=== PATIENT | male | born 1990 | race Caucasian/White ===

== ENCOUNTER 2023-01-27 08:27 | Emergency (ER) | payer OTHER, SELFPAY ==
[2023-01-27 08:33] VITALS: BP 146/98; PULSE 96; RESP 16; TEMP 36.6; O2SAT 96; BMI 40.0
--- NOTE | 2023-01-27 08:43 | CRLHL7_ITS ---
For Patients: As a result of the Cures Act, medical imaging exams and procedure reports are released immediately into your electronic medical record. You may view this report before your referring provider. If you have questions, please contact your health care provider. Indication: Right AC pain Technique: Right shoulder 3 views. Comparison: None. Findings: Spurring at the acromioclavicular joint noted with subchondral cystic change and dorsal hypertrophic change to the distal clavicle. Synovial hypertrophy also present. No fracture. No widening of the AC joint. Intact proximal humerus and visualized ribs. Normal glenohumeral joint. 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 Dictated by Cy Toro MD @ 01/27/2023 9:02:54 AM (Electronically Signed)
--- NOTE | 2023-01-27 08:46 | ED.UPPEXIN ---
HPI - Extremity Injury (Upper) General Date Seen: 01/27/23 Chief Complaint: Shoulder Injury/Pain Stated Complaint: Shoulder/neck pain right side Time Seen by Provider: 01/27/23 08:28 Source: patient Mode of arrival: ambulatory Limitations: no limitations History of Present Illness HPI narrative: Patient is a 32-year-old gentleman who presents here with right shoulder discomfort since yesterday, he was out sledding with his children but does not remember injuring himself, he woke up this morning with a right-sided shoulder discomfort and really inability to raises right arm. Because of pain. He thinks the right EC shoulder joint is swollen. Comparison to the left. He has no numbness tingling weakness goes down his neck, or into his arm, and denies any worsening of this when he moves his neck. No history of significant injury, loss of consciousness, he does have a history of Crohn's disease, is on Remicade in [place] T complaint: injury to: right Onset (ago): day(s) Other Extremity Injury: Right: shoulder Other injuries: none Hand dominance: Right Place: outdoors Severity: moderate Relieving factors: none Exacerbating factors: none Context: other Associated symptoms: denies other symptoms Treatments prior to arrival: other (none) Related Data Home Medications Medication Instructions Recorded Confirmed azathioprine 50 mg tablet mg PO BID 01/27/23 infliximab 100 mg intravenous IV 01/27/23 solution (Remicade) Previous Rx's Medication Instructions Recorded methylprednisolone 4 mg tablets in 4 mg PO DAILY #21 ea 01/27/23 a dose pack (Medrol (Sulaiman)) Allergies Allergy/AdvReac Type Severity Reaction Status Date / Time acetaminophen [From Vicodin] AdvReac Unknown Verified 01/27/23 08:39 hydrocodone [From Vicodin] AdvReac Unknown Verified 01/27/23 08:39 Review of Systems Status of ROS: Reports: 6 or more systems reviewed and unremarkable except as noted in History and below PFSH PFSH Social History Smoking Status: Former smoker Do you use any of these nicotine containing products: None Second hand tobacco smoke exposure: No How often do you have a drink containing alcohol: monthly or less AUDIT-C Alcohol total score: 1 Non-prescribed substance use: marijuana (any form) service: No Exam Narrative: Exam Narrative: Patient is seen in room 3, large gentleman in no apparent distress, I do not see any appreciable abnormality in reviewing left verses right shoulder area. But he is sore over the AC joint and along the clavicle. His neck has excellent range of motion in extension greater than 24 cm, flexion within 6, lateral flexion is a 30?, and rotation is greater than 70?. 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 Finger abduction wrist dorsiflexion biceps triceps biceps power is normal any sort of movement of his right shoulder however causes discomfort such as stanchion flexion. He has good internal external rotation I do not suspect that there is any evidence of a dislocation. Sensation is normal in his right upper extremity is pulses are normal with absence of edema or rash. Const: Vital Signs, click to edit/add: Vital Signs - 24 hr 01/27/23 08:33 Temperature 97.9 F Pulse Rate [Pulse Oximeter] 96 Respiratory Rate 16 Blood Pressure [Le ft Upper Arm] 146/98 H Pulse Oximetry 96 Oxygen Delivery Me thod Room Air Documenting provider has reviewed patient's vital signs: yes Course Course Hospital Course: I reviewed the x-ray, read reviewed the radiology report, he does have some arthritic changes of his AC joint but no widening to suggest that this is at least a grade 2 AC joint sprain. I suspect this is either the AC joint or the shoulder, given his range of motion of his neck I am not suspecting that this is a radicular type phenomena. All that cannot be 100% ruled out. I think we have time here and will try Medrol Dosepak, along with some Tylenol that he is able to use. He will avoid the use of NSAIDs for 2 reasons 1. With the Medrol 2. With the fact that this tends to set off is Crohn's disease I will have him follow-up later in the week with primary care, return here if any signs and symptoms of worsening which I discussed with him informed consent risks benefits given over medications. I explained to him that we typically do not sling these as we do not want and up with adhesive capsulitis. Or any decreased range of motion. He may need physical therapy going forward. Vital Signs Vital signs: Initial Vital Signs Temperature 97.9 F 01/27/23 08:33 Temperature Source Temporal Artery Scan 01/27/23 08:33 Pulse Rate 96 01/27/23 08:33 Pulse Rhythm 01/27/23 08:33 Respiratory Rate 16 01/27/23 08:33 Blood Pressure 146/98 H 01/27/23 08:33 Blood Pressure Mean 114 01/27/23 08:33 Blood Pressure Position Sitting 01/27/23 08:33 Pulse Oximetry 96 01/27/23 08:33 Oxygen Delivery Method 01/27/23 08:33 Vital Signs Temperature 97.9 F 01/27/23 08:33 Pulse Rate 96 01/27/23 08:33 Respiratory Rate 16 01/27/23 08:33 Blood Pressure 146/98 H 01/27/23 08:33 Pulse Oximetry 96 01/27/23 08:33 Oxygen Delivery Method 01/27/23 08:33 Temperature 97.9 F 01/27/23 08:33 Pulse Rate 96 01/27/23 08:33 Respiratory Rate 16 01/27/23 08:33 Blood Pressure 146/98 H 01/27/23 08:33 Pulse Oximetry 96 01/27/23 08:33 Oxygen Delivery Method 01/27/23 08:33 MDM - Extremity Injury (Upper) Medical Records Attestation: I reviewed the patient's medical records. Imaging Data Shoulder x-ray: My impression: No acute changes shoulder arthrosis of the AC joint. Radiologist's impression: Patient: KAMALJIT VELÁZQUEZ Facility:?[facility] Patient ID:?[id number] Site Patient ID:?[id number]. Site :?[id number] Study:?XRay Shoulder Right 3 VIEW-01/27/2023 8:58:26 AM Ordering Physician:Qing Meyer Final Report: Indication: Right AC pain Technique: Right shoulder 3 views. Comparison: None. Findings: Spurring at the acromioclavicular joint noted with subchondral cystic change and dorsal hypertrophic change to the distal clavicle. Synovial hypertrophy also present. No fracture. No widening of the AC joint. Intact proximal humerus and visualized ribs. Normal glenohumeral joint. 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 Dictated by Cy Toro MD @ 01/27/2023 9:02:54 AM (Electronic Signature) Discharge Plan Discharge Clinical Impression: Right shoulder pain Patient Disposition: Home, Self-Care Condition: Stable Instructions: Adhesive Capsulitis (ED), Shoulder Pain (ED), Arm Pain (ED), Shoulder Impingement Syndrome (ED) Additional Instructions: Home rest use of Tylenol 1 g p.o. t.i.d., would also suggest use of the Medrol Dosepak prescription given, follow-up later in week with primary care. As I discussed with you I do not think this is your neck, I think this is more likely rotator cuff for your AC joint, ice would be helpful over this area also and decrease your activity. Prescriptions: New methylprednisolone [Medrol (Sulaiman)] 4 mg tablets,dose pack 4 mg PO DAILY Qty: 21 0RF No Action azathioprine 50 mg tablet PO BID infliximab [Remicade] 100 mg recon soln IV Follow Up/Referrals: Sushant Schreiber MD [Primary Care Provider] - Stand Alone Forms: [employer] Info Instructions
[2023-01-27] MEDS: ACETAMINOPHEN 500 MG TABLET 1000 MG PO (09:11)
== END 2023-01-27 09:31 | disposition home or self-care (01) ==
PROVIDERS: Emergency Provider Family Medicine; PCP Family Medicine
DX: M25.511 Pain in right shoulder (principal)
CPT/HCPCS: 73030; 99283; 99284; A9270

== ENCOUNTER 2024-06-14 19:42 | Outpatient (CLI) | payer OTHER, SELFPAY ==
--- OUTSIDE RECORDS SUMMARY | 2024-06-14 19:45 | XMS_ITS | Clinical Summary ---
Author Organization [facility] Address [place], [place] [address] Care Team Providers Care Equipment Manager Name Role Phone Sushant Schreiber MD Primary Care Provider [phone] Allergies Active Allergy Reactions Criticality Noted Date Comments Hydrocodone-Acetaminophen Vomiting Low 04/17/2022 Medications Medication Sig Dispensed Refills Start Date End Date Status sennosides-docusate (SENOKOT S) (8.6-50 mg) tabletIndications:L umbar stenosis with neurogenic claudication Take 1 Tablet by mouth 2 times daily. 50 Tablet 04/23/2022 Active azaTHIOprine (IMURAN) 50 mg tablet Take 200 mg by mouth once daily. 05/03/2022 Active inFLIXimab (REMICADE) 100 mg injection Inject 5 mg/kg intravenous every 8 weeks. Active acetaminophen (TYLENOL EXTRA STRGTH) 500 mg tablet Take 1,000 mg by mouth every 6 hours if needed for Pain or Headache. Max acetaminophen dose: 4000mg in 24 hrs. Active oxyCODONE (ROXICODONE) 5 mg immediate release tabletIndications:L umbar stenosis with neurogenic claudication Take 1 Tablet (5 mg) by mouth every 4 hours if needed for Pain. 10 tablet. 05/17/2022 Active methocarbamoL (ROBAXIN) 750 mg tabletIndications:L umbar radiculopathy Take 1 Tablet (750 mg) by mouth 4 times daily. 40 Tablet 05/17/2022 Active Active Problems Problem Noted Date Diagnosed Date Crohn's disease of both small and large intestin e 01/28/2022 Cannabis dependence 09/05/2020 Lumbar radiculopathy Overview: pain, low back pain going into the left thigh Social History Tobacco Use Types Packs/Day Years Used Date Smoking Tobacco: Former Cigarettes 1 7 0 11/16/2007 - 11/16/2014 Smokeless Tobacco: Former Chew Quit: 04/17/2015 Tobacco Cessation:Counseling Given: Yes Alcohol Use Standard Drinks/Week Comments Not Currently 0 (1 standard drink = 0.6 oz pur e alcohol) Social Connections Answer Date Recorded Frequency of Communication with Friends and Fami ly Not on file 11/12/2021 Financial Resource Strain Answer Date R ecorded Difficulty of Paying Living Expenses Not on file 11/12/2021 Difficulty of Paying Living Expenses Not on file 11/12/2021 Sex and Gender Information Value Date Recorded Sex Assigned at Not on file Gender Identity Not on file Sexual Orientation Not on file Obstetrics History Last Filed Vital Signs Vital Sign Reading Time Taken Comments Blood Pressure 145/85 05/17/2022 12:24 PM CDT Pulse 80 05/17/2022 12:24 PM CDT Temperature 36.8 ??C (98.2 ??F) 05/17/2022 12:24 PM C DT Respiratory Rate 16 05/17/2022 12:24 PM CDT Oxygen Saturation 94% 05/17/2022 12:24 PM CDT Inhaled Oxygen Concentration - - Weight 115.2 kg (254 lb) 05/15/2022 2:03 PM CDT Height 181.6 cm (5' 11.5) 05/15/2022 2:03 PM CD T Body Mass Index 34.93 05/15/2022 2:03 PM CDT Plan of Treatment Health Maintenance Due Date Last Done Comments Tdap 1999 Depression screening for age 12+ 2000 BMI (ht and wt on same day) for age 18+ 2006 Tetanus booster 2008 COVID-19 vaccine series ( season) 2023 07/30/2021, 07/02/2021 Lipids for age 35-44 2023 Influenza for age 9-49 07/17/2024 HIV for age 15-65 Completed 06/29/2020 Hepatitis C screening for ag e 18-79 Completed 08/16/2021 Pneumococcal series for age 6-64 Aged Out No longer eligible b ased on patient's age to complete this topic Medical Devices Implanted Type Area Mail Machine Operator Device Identifier Shelf Expiration Date Model / Serial / Lot Dura Neuro 1xin Duragen Plusnon-Sut - [id number] Implanted:Qty: 1 on 04/21/2022 by Tadeo Calles MD at [facility] [employer] 01/13/2025 [id number] / / [id number] Procedures Procedure Name Priority Date/Time Associated Diagnosis Comments ANTI HCV Routine 08/16/2021 11:49 AM CDT High risk medication use ANTI HIV 1/2 Routine 06/29/2020 2:53 PM CDT Crohn's disease of both small and large intestine with fistula (HC) 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 Blood BLOOD SPECIMEN / Unknown Butterfly / Unknown 08/16/2021 11:49 AM CDT 08/16/2021 12:15 PM CDT Kaity Villatoro DO [facility] [address] [place] [address], * ANTI HIV 1/2 (06/29/2020 2:53 PM CDT) HIV-1/HIV-2 ANTIBODY Non-Reacti ve Non-Reacti ve 06/29/2020 8:44 PM CDT [facility] Comment:HIV-1 p24 and HIV-1/ HIV-2 Ab not detected. Blood BLOOD SPECIMEN / Unknown Venipuncture / Unknown 06/29/2020 2:53 PM CDT 06/29/2020 2:53 PM CDT Vinicio Teresa MD [facility] [address] [place] [address], from Last 3 Months or Most Recently Relevant to Health Maintenance Advance Directives * Full Code (Latest Code Status on File) Date Activated Date Inactivated Comments 05/15/2022 7:03 PM 05/17/2022 4:29 PM Question Answer Comments Code Status Discussion: Reviewed Preferences Care Teams Equipment Manager Relationship Specialty Start Date End Date Sushant Schreiber MD [address] [place] [address] PCP - General Family Practice 06/29/20
--- OUTSIDE RECORDS SUMMARY | 2024-06-14 19:45 | XMS_ITS | Encounter Summary ---
Author Organization [facility] Address [address] [place] [address] Care Team Providers Care Flooring Helper Name Role Phone Sushant Schreiber MD Primary Care Provider No Ref-Primary, Physician Unavailable Cisco Caceres MD Unavailable [phone] Yung Rodriguez MD Unavailable Tatianna Horne [facility] Unavailable Billie Tucker RN Unavailable Unavailable Paul Sanford MD Unavailable [phone] Paul Sanford MD Unavailable Jt Waters MD Unavailable Bhavik Segura PA-C Unavailable Paul Sanford MD Unavailable Favian Mcknight MD Unavailable [phone] Favian Mcknight MD Unavailable Reason for Visit * Reason Onset Date Comments Appointment 06/10/2024 Encounter Details Date Type Department Care Team (Late st Contact Info) Description 06/10/2024 Telephone [facility] [address] [place] [address] Paula Jane PA-C [address] [place] [address] Appointment Social History Tobacco Use Types Packs/Day Years Used Date Smoking Tobacco: Former Cigarettes Q uit: 05/01/2015 Smokeless Tobacco: Never Alcohol Use Standard Drinks/Week Comments Not Currently 0 (1 standard drink = 0.6 oz pur e alcohol) stop drinking 06/2020 PHQ-2 Answer Date Recorded PHQ-2 Score 0 12/08/2023 Adolescent Education Answer Date Record ed Getting School Help Needed Not on file 08/19 Sex and Gender Information Value Date Recorded Sex Assigned at Not on file Gender Identity Not on file Sexual Orientation Not on file documented as of this encounter Miscellaneous Notes * Telephone Encounter - Maria Teresa Garcia - 06/10/2024 10:31 AM CDT Left Voicemail (2nd Attempt) for the patient to call back and schedule the following: Appointment type: return Provider: Paula Jane Return date: next available Specialty phone number: [phone] Additional appointment(s) needed: Additonal Notes: * Can we please contact this patient and get him an appt with Paula as soon as she has available. Can we also get a follow up with Dr. Sanford on the books as well, next return available. documented in this encounter Plan of Treatment Upcoming Encounters Date Type Department Care Team (Late st Contact Info) Description 06/15/2024 9:00 AM CDT Virtual Visit [facility] [address] [address] Paul Sanford MD [address] [place] [phone] [address] [phone] documented as of this encounter Visit Diagnoses Not on filedocumented in this encounter Care Teams Flooring Helper Relationship Specialty Start Date End Date Sushant Schreiber MD [facility] & [address] [address] PCP - General Family Medicine 12/02/21 No Ref-Primary, Physician 12/02/21 Cisco Caceres MD [address] [place] [address] [phone] Fellow Gastroenterology 12/09/21 Yung Rodriguez MD [address], [facility] [address] [place], [place] [address] Cardiovascular Disease 12/25/21 Tatianna Horne, [facility] [address] [place] [address] [phone] Pharmacist Pharmacist Maintenance Groundskeeper 02/06/22 Billie Tucker, RN Specialty Rotary Screen Printing Machine Operator Gastroenterology 12/10/22 Paul Sanford MD [address] [place] [address] [phone] Gastroenterology 12/25/22 Paul Sanford MD [address] [place] [address] [phone] Referring Physician Gastroenterology 01/14/23 Jt Waters MD [address] [place], [place] [address] Dermatology 01/14/23 Bhavik Segura PA-C [address] [place] [address] [phone] Physician Arson And Bomb Investigator Gastroenterology 04/28/23 Paul Sanford MD [address] [place] [phone] Assigned Gastroenterology Provider 07/18/23 Favian Mcknight MD [address] [place] [address] MD Dermatology 12/09/23 Favian Mcknight MD [address] [place] [address] Assigned Surgical Provider 01/29/24 documented as of this encounter
--- OUTSIDE RECORDS SUMMARY | 2024-06-14 19:45 | XMS_ITS | Encounter Summary ---
Author Organization [facility] Address [address] [place] [address] Care Team Providers Care Packaging Machine Supplies Distributor Name Role Phone Sushant Schreiber MD Primary Care Provider [phone] No Ref-Primary, Physician Unavailable Cisco Caceres MD Unavailable [phone] Yung Rodriguez MD Unavailable Tatianna Horne [facility] Unavailable Billie Tucker RN Unavailable Unavailable Paul Sanford MD Unavailable Paul Sanford MD Unavailable Jt Waters MD Unavailable Bhavik Segura PA-C Unavailable Paul Sanford MD Unavailable [phone] Favian Mcknight MD Unavailable Favian Mcknight MD Unavailable [phone] Reason for Visit * Reason Onset Date Comments Appointment 06/08/2024 Encounter Details Date Type Department Care Team (Late st Contact Info) Description 06/08/2024 Telephone [facility] [address] [place] [address] Paula Jane PA-C [address] [place] [address] Appointment Social History Tobacco Use Types [...] Telephone Encounter - Maria Teresa Garcia - 06/08/2024 12:52 PM CDT Left Voicemail (1st Attempt) for the patient to call back and schedule the following: Appointment type: return Provider: Paula Jane and Dr. Sanford Return date: next available Specialty phone number: [phone] Additional appointment(s) needed: Additonal Notes: documented in this encounter Plan of Treatment Upcoming Encounters Date Type Department Care Team (Late st Contact Info) Description 06/15/2024 9:00 AM CDT Virtual Visit [facility] [address] [place] [address] Paul Sanford MD [address] [place] [address] [address] [address] documented as of this encounter Visit Diagnoses Not on filedocumented in this encounter Care Teams Packaging Machine Supplies Distributor Relationship Specialty Start Date End Date Sushant Schreiber MD [facility] [address] [place] [address] PCP - General Family Medicine 12/02/21 No Ref-Primary, Physician 12/02/21 Cisco Caceres MD [address] [place] [address] [phone] Fellow Gastroenterology 12/09/21 Yung Rodriguez MD [address] , [facility] [address] [place] [address] [phone] Cardiovascular Disease 12/25/21 Tatianna Horne, [facility] [address] [place] [address] [phone] Pharmacist Pharmacist Web Site Admin 02/06/22 Billie Tucker, RN Specialty Conservation Science Officer Gastroenterology 12/10/22 Paul Sanford MD [address] [place] [address] MD Gastroenterology 12/25/22 Paul Sanford MD [address] [place] [address] Referring Physician Gastroenterology 01/14/23 Jt Waters MD [address] [place] [address] [phone] Dermatology 01/14/23 Bhavik Segura PA-C [address] [place] [address] [phone] Physician Traffic Lieutenant Gastroenterology 04/28/23 Paul Sanford MD [address] [place] [address] [phone] Assigned Gastroenterology Provider 07/18/23 Favian Mcknight MD [address] [place] [address] Dermatology 12/09/23 Favian Mcknight MD [address] [place] [address] Assigned Surgical Provider 01/29/24 documented as of this encounter
--- OUTSIDE RECORDS SUMMARY | 2024-06-14 19:45 | XMS_ITS | Referral Summary ---
Author Organization [facility] Address [address] [place] [address] Care Team Providers Care Residential Sales Associate Name Role Phone Sushant Schreiber MD Primary Care Provider No Ref-Primary, Physician Unavailable [phone] Cisco Wooten MD Unavailable Yung Rodriguez MD Unavailable Tatianna Horne [facility] Unavailable [phone] Billie Tucker RN Unavailable Unavailable Megha Sanford MD Unavailable Megha Sanford MD Unavailable Jt Waters MD Unavailable Bhavik Segura PA-C Unavailable Megha Sanford MD Unavailable Favian Mcknight MD Unavailable Favian Mcknight MD Unavailable Encounters Date Type Department Care Team Description 06/10/2024 Telephone [facility] [address] [phone] Paula Jane PA-C Appointment 06/08/2024 Telephone [facility] [address] [phone] Paula Jane PA-C Appointment 06/07/2024 [facility] Medical Advice [facility] [address] [place] [phone] Billie Tucker, RN Crohn's disease of both small and large intestine with other complication (H) (Primary Dx) 06/07/2024 Telephone [facility] [address] [place] [phone] Megha Sanford MD Call Back 05/09/2024 Documentation Only [facility] [address] [place] [phone] Lyudmila Baltazar RN Home Infusion 03/31/2024 Telephone [facility] [address] [place] [phone] Favian Mcknight MD Clinic Care Coordination - Initial 03/18/2024 Telephone [facility] [address] [place] [phone] Cisco Wooten MD Appointment 03/16/2024 [facility] Medical Advice [facility] [address] [place] [phone] Tatianna Horne [facility] 03/16/2024 Telephone [facility] [address] [phone] Cisco Wooten MD Appointment from Last 3 Months Allergies Active Allergy Reactions Criticality Noted Date Comments Hydrocodone-Acetaminophen Nausea and Vomiting Low 0 04/17/2022 Oxycodone Nausea and Vomiting 12/04/2021 Medications Medication Sig Dispensed Refills Start Date End Date Status inFLIXimab (REMICADE IV) Inject 900 mg into the vein every 2 months Active acetaminophen (TYLENOL) 325 MG tablet Take 325-650 mg by mouth 3 times daily as needed for mild pain, fever or headaches Active polyethylene glycol (GOLYTELY) 236 g suspensionIndicatio ns:Crohn's disease of both small and large intestine with other complication (H) The night before the exam at 6 pm drink an 8-ounce glass every 15 minutes until the jug is half empty. If you arrive before 11 AM: Drink the other half of the Golytely jug at 11 PM night before procedure. If you arrive after 11 AM: Drink the other half of the Golytely jug at 6 AM day of procedure. For additional instructions refer to your colonoscopy prep instructions. 4000 mL 03/06/2023 Active azaTHIOprine (IMURAN) 50 MG tabletIndications:C rohn's disease of both small and large intestine with other complication (H) Take 4 tablets (200 mg) by mouth daily 360 tablet 1 01/11/2024 Active cetirizine (ZYRTEC) 10 MG tabletIndications:U rticaria Take one pill (10mg daily) for hives. If not controlling your hives, start taking one pill twice daily (morning and evening). 60 tablet 5 01/19/2024 Active Active Problems Problem Noted Date Diagnosed Date Back injury 03/23/2023 Chronic left-sided low back pain without sciatic a 02/27/2022 Crohn's disease of both small and large intestin e 01/28/2022 Pericardial effusion 12/03/2021 CARDIOVASCULAR SCREENING; LDL GOAL LESS THAN 160 09/15/2010 Social History Tobacco Use Types Packs/Day Years [...] on file Sexual Orientation Not on file Last Filed Vital Signs Vital Sign Reading Time Taken Comments Blood Pressure 156/96 01/20/2024 8:00 AM ACCOUNTS RECEIVABLE ADMINISTRATOR Pulse 77 01/20/2024 8:00 AM ACCOUNTS RECEIVABLE ADMINISTRATOR Temperature 36.7 ??C (98.1 ??F) 11/21/2023 12:[address] Respiratory Rate 18 11/21/2023 12:59 AM ACCOUNTS RECEIVABLE ADMINISTRATOR Oxygen Saturation 96% 01/20/2024 8:00 AM ACCOUNTS RECEIVABLE ADMINISTRATOR Inhaled Oxygen Concentration - - Weight 127.5 kg (281 lb) 01/20/2024 8:00 AM ACCOUNTS RECEIVABLE ADMINISTRATOR Height 181.6 cm (5' 11.5) 01/20/2024 8:00 AM CS T pt reported Body Mass Index 38.65 01/20/2024 8:00 AM ACCOUNTS RECEIVABLE ADMINISTRATOR Plan of Treatment Upcoming Encounters Date Type Department Care Team (Late st Contact Info) Description 06/15/2024 9:00 AM CDT Virtual Visit [facility] [address] [place] [phone] Megha Sanford MD [address] [place] [address] Tatianna Horne, [facility] [address] [place] [address] Procedures Procedure Name Priority Date/Time Associated Diagnosis Comments CBC WITH PLATELETS & DIFFERENTIAL Routine 05/09/2024 1:35 PM CDT Crohn's disease of both small and large intestine without complications (H) CBC WITH PLATELETS AND DIFFERENTIAL Routine 05/09/2024 1:35 PM CDT Crohn's disease of both small and large intestine without complications (H) CRP INFLAMMATION Routine 05/09/2024 1:35 PM CDT Crohn's disease of both small and large intestine without complications (H) HEPATIC FUNCTION PANEL Routine 05/09/2024 1:35 PM CDT Crohn's disease of both small and large intestine without complications (H) HIV ANTIGEN ANTIBODY COMBO Add-On 01/20/2024 10:09 AM ACCOUNTS RECEIVABLE ADMINISTRATOR Crohn's disease of small intestine with abscess (H) High risk medication use HEPATITIS C ANTIBODY Add-On 01/20/2024 10:09 AM ACCOUNTS RECEIVABLE ADMINISTRATOR Crohn's disease of small intestine with abscess (H) High risk medication use BASIC METABOLIC PANEL Routine 12/08/2023 4:39 PM ACCOUNTS RECEIVABLE ADMINISTRATOR Arthralgia, unspecified joint High risk medication use CRP elevated COLONOSCOPY Routine 09/29/2023 9:29 AM ACCOUNTS RECEIVABLE ADMINISTRATOR from Last 3 Months or Most Recently Relevant to Health Maintenance Results * (ABNORMAL) CBC with platelets and differential (05/09/2024 1:35 PM CDT) WBC Count 8.5 4.0 - 11.0 10e3/uL 05/09/2024 2:43 PM CDT [facility] RBC Count 4.29(L) 4.40 - 5.90 10e6/uL 05/09/2024 2:43 PM CDT [facility] Hemoglobin 14.6 13.3 - 17.7 g/dL 05/09/2024 2:43 PM CDT [facility] Hematocrit 41.1 40.0 - 53.0 % 05/09/2024 2:43 PM CDT [facility] MCV 96 78 - 100 fL 05/09/2024 2:43 PM CDT [facility] MCH 34.0(H) 26.5 - 33.0 pg 05/09/2024 2:43 PM CDT [facility] MCHC 35.5 31.5 - 36.5 g/dL 05/09/2024 2:43 PM CDT [facility] RDW 13.4 10.0 - 15.0 % 05/09/2024 2:43 PM CDT [facility] Platelet Count 255 150 - 450 10e3/uL 05/09/2024 2:43 PM CDT [facility] % Neutrophils 55 % 05/09/2024 2:43 PM CDT [facility] % Lymphocytes 34 % 05/09/2024 2:43 PM CDT [facility] % Monocytes 9 % 05/09/2024 2:43 PM CDT [facility] % Eosinophils 1 % 05/09/2024 2:43 PM CDT [facility] % Basophils 1 % 05/09/2024 2:43 PM CDT [facility] % Immature Granulocytes 0 % 05/09/2024 2:43 PM CDT [facility] NRBCs per 100 WBC 0 <1 /100 024 2:43 PM CDT [facility] Absolute Neutrophils 4.6 1.6 - 8.3 10e3/uL 05/09/2024 2:43 PM CDT [facility] Absolute Lymphocytes 2.9 0.8 - 5.3 10e3/uL 05/09/2024 2:43 PM CDT [facility] Absolute Monocytes 0.8 0.0 - 1.3 10e3/uL 05/09/2024 2:43 PM CDT [facility] Absolute Eosinophils 0.1 0.0 - 0.7 10e3/uL 05/09/2024 2:43 PM CDT [facility] Absolute Basophils 0.0 0.0 - 0.2 10e3/uL 05/09/2024 2:43 PM CDT [facility] Absolute Immature Granulocytes 0.0 <=0.4 10e3/uL 05/09/2024 2:43 PM CDT [facility] Absolute NRBCs 0.0 10e3/uL 05/09/2024 2:43 PM CDT [facility] Blood BLOOD SPECIMEN / Unknown Client Draw / Unknown 05/09/2024 1:35 PM CDT 05/09/2024 2:39 PM CDT Megha Sanford MD LAB - BLOOD O RDERABLES LABORATORY [facility] [address] [facility] Lab (1st floor, no room number) [place] [phone] * Hepatic function panel (05/09/2024 1:35 PM CDT) Pathologist [facility] Protein Total 8.0 6.4 - 8.3 g/dL 05/09/2024 3:01 PM CDT [facility] Albumin 4.4 3.5 - 5.2 g/dL 05/09/2024 3:01 PM CDT [facility] Bilirubin Total 0.6 <=1.2 mg/dL 05/09/2024 3:01 PM CDT [facility] Alkaline Phosphatase 137 40 - 150 U/L 05/09/2024 3:01 PM CDT [facility] AST 43 0 - 45 U/L 05/09/2024 3:01 PM CDT [facility] Comment:Reference intervals for this test were updated on 04/27/2023 to more accurately reflect our healthy population. There may be differences in the flagging of prior results with similar values performed with this method. Interpretation of those prior results can be made in the context of the updated reference intervals. ALT 45 0 - 70 U/L 05/09/2024 3:01 PM CDT [facility] Comment:Reference intervals for this test were updated on 04/27/2023 to more accurately reflect our healthy population. There may be differences in the flagging of prior results with similar values performed with this method. Interpretation of those prior results can be made in the context of the updated reference intervals. Bilirubin Direct <0.20 0.00 - 0.30 mg/dL 05/09/2024 3:01 PM CDT [facility] Blood BLOOD SPECIMEN / Unknown Client Draw / Unknown 05/09/2024 1:35 PM CDT 05/09/2024 2:39 PM CDT Megha Sanford MD LAB - BLOOD O RDERALYUDMILA Performing Organization Address City/[facility]/ZIP Co de Phone Number [facility] [address] (1st floor, no room number) [place] [phone] [place] [address] * (ABNORMAL) CRP inflammation (05/09/2024 1:35 PM CDT) CRP Inflammation 5.34(H) <5.00 mg/L 05/09/2024 3:01 PM CDT LABORATORY Blood BLOOD SPECIMEN / Unknown Client Draw / Unknown 05/09/2024 1:35 PM CDT 05/09/2024 2:39 PM CDT Megha Sanford MD LAB - BLOOD O RDERALYUDMILA [facility] [address] Lab (1st floor, no room number) [place] [address] * HIV Antigen Antibody Combo [place] (01/20/2024 10:09 AM ACCOUNTS RECEIVABLE ADMINISTRATOR) HIV Antigen Antibody Combo Nonreactive Nonreactive 01/20/2024 10:07 PM ACCOUNTS RECEIVABLE ADMINISTRATOR [facility] Comment:Negative HIV-1/-2 an tigen and antibody screening test results usually indicate the absence of HIV-1 and HIV-2 infection. However, such negative results do not rule-out acute HIV infection. If acute HIV-1 or HIV-2 infection is suspected, detection of HIV-1 or HIV-2 RNA is recommended. Blood STRUCTURE OF RIGHT UPPER LIMB / Unknown Venipuncture / Unknown 01/20/2024 10:09 AM ACCOUNTS RECEIVABLE ADMINISTRATOR 01/20/2024 10:09 AM ACCOUNTS RECEIVABLE ADMINISTRATOR Miguel Stoll MD LAB - BLOOD ORDER SHANDA Performing Organization Address City/[facility] Co de Phone Number LABORATORY [facility] [address] [facility], [address] [place] [address], [facility] [phone] * Hepatitis C antibody (01/20/2024 10:09 AM ACCOUNTS RECEIVABLE ADMINISTRATOR) Hepatitis C Antibody Nonreactive Nonreactive 01/20/2024 10:28 PM ACCOUNTS RECEIVABLE ADMINISTRATOR LABORATORY Comment:A nonreactive screen ing test result does not exclude the possibility of exposure to or infection with HCV. Nonreactive screening test results in individuals with prior exposure to HCV may be due to antibody levels below the limit of detection of this assay or lack of reactivity to the HCV antigens used in this assay. Patients with recent HCV infections (<3 months from time of exposure) may have false- negative HCV antibody results due to the time needed for seroconversion (average of 8 to 9 weeks). Blood STRUCTURE OF RIGHT UPPER LIMB / Unknown Venipuncture / Unknown 01/20/2024 10:09 AM ACCOUNTS RECEIVABLE ADMINISTRATOR 01/20/2024 10:09 AM ACCOUNTS RECEIVABLE ADMINISTRATOR Miguel Stoll MD LAB - BLOOD ORDER SHANDA Performing Organization Address [facility]/ZIP Co de Phone Number LABORATORY [facility] [address] [facility], [address] [place] [address], [facility] [phone] * (ABNORMAL) Basic metabolic panel (12/08/2023 4:39 PM ACCOUNTS RECEIVABLE ADMINISTRATOR) Pathologist [facility] Sodium 139 135 - 145 mmol/L 12/08/2023 5:06 PM ACCOUNTS RECEIVABLE ADMINISTRATOR [facility] Comment:Reference intervals for this test were updated on 08/11/2023 to more accurately reflect our healthy population. There may be differences in the flagging of prior results with similar values performed with this method. Interpretation of those prior results can be made in the context of the updated reference intervals. Potassium 3.7 3.4 - 5.3 mmol/L 12/08/2023 5:06 PM [facility] - CORE LAB Chloride 102 98 - 107 mmol/L 12/08/2023 5:06 PM [facility] - [facility] Carbon Dioxide (CO2) 28 22 - 29 mmol/L 12/08/2023 5:06 PM [facility] Anion Gap 9 7 - 15 mmol/L 12/08/2023 5:06 PM [facility] Urea Nitrogen 13.7 6.0 - 20.0 mg/dL 12/08/2023 5:06 PM [facility] Creatinine 0.87 0.67 - 1.17 mg/dL 12/08/2023 5:06 PM [facility] - [facility] GFR Estimate >90 >60 mL/min/1. 73m2 12/08/2023 5:06 PM [facility] Calcium 9.3 8.6 - 10.0 mg/dL 12/08/2023 5:06 PM [facility] Glucose 108(H) 70 - 99 mg/dL 12/08/2023 5:06 PM [facility] Blood STRUCTURE OF LEFT UPPER LIMB / Unknown Venipuncture / Unknown 12/08/2023 4:39 PM ACCOUNTS RECEIVABLE ADMINISTRATOR 12/08/2023 4:39 PM ACCOUNTS RECEIVABLE ADMINISTRATOR Megha Sanford MD LAB - BLOOD O RDERABLES [facility] [address] [facility] 1st [place] [address] * COLONOSCOPY (09/29/2023 9:29 AM ACCOUNTS RECEIVABLE ADMINISTRATOR) [facility] [address] [place] [address] [phone] ? Endoscopy Department Patient Name: Demetri Castillo ?Procedure Date: 09/29/2023 9:29 AM ? Date of : 1990 ? Admit Type: Outpatient Age: 33 ? Room: [facility] 02 Gender: Male ?Note Status: Finalized Attending MD: MEGHA SANFORD MD, ?? Total Sedation Time: Procedure: ? Colonoscopy Indications: ? High risk colon cancer surveillance: Crohn's colitis ? of 8 (or more) years duration with one-third (or more) ? of the colon involved, currently doing well in ? symptomatic remission on therapies. MRE/CTE show no ? active inflammation. 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 ileo-cecal resection with IC anastomosis, sigmoid ? colectomy, pelvic wash out (sacral osteomyelitis). Providers: ? MEGHA SANFORD MD, Ashley Lopez, JANELL, SKY ? JASBIR LAMB Referring MD: ?MEGHA SANFORD MD, CISCO WOOTEN MD Requesting Provider: ?? CISCO WOOTEN MD Medicines: ? Monitored Anesthesia Care Complications: ? No immediate complications. Procedure: ? Pre-Anesthesia Assessment: ? - See EPIC H and P note ? After obtaining informed consent, the colonoscope was ? passed under direct vision. Throughout the procedure, ? the patient's blood pressure, pulse, and oxygen ? saturations were monitored continuously. The ? Colonoscope was introduced through the anus and ? advanced to the ileocolonic anastomosis. The ? colonoscopy was performed without difficulty. The ? patient tolerated the procedure well. The quality of ? the bowel preparation was adequate to identify polyps ? greater than 5 mm in size. ? Findings: ? Skin tags were found on perianal exam. ? The Simple Endoscopic Score for Crohn's Disease was determined based on ? the endoscopic appearance of the mucosa in the following segments: ? - Ileum: Findings include no ulcers present, no ulcerated surfaces, no ? affected surfaces and no narrowings. Segment score: 0. ? - Right Colon: Findings include no ulcers present, no ulcerated ? surfaces, no affected surfaces, no narrowings and no ulcers present, no ? ulcerated surfaces, no affected surfaces and no narrowings. Segment ? score: 0. ? - Transverse Colon: Findings include no ulcers present, no ulcerated ? surfaces, no affected surfaces, no narrowings and no ulcers present, no ? ulcerated surfaces, no affected surfaces and no narrowings. Segment ? score: 0. ? - Left Colon: Findings include no ulcers present, no ulcerated surfaces, ? no affected surfaces, no narrowings and no ulcers present, no ulcerated ? surfaces, no affected surfaces and no narrowings. Segment score: 0. ? - Rectum: Findings include no ulcers present, no ulcerated surfaces, no ? affected surfaces, no narrowings and no ulcers present, no ulcerated ? surfaces, no affected surfaces and no narrowings. Segment score: 0. ? - Total SES-CD aggregate score: 0. Four biopsies were taken every 10 cm ? with a cold forceps from the entire colon for Crohn's disease ? surveillance and dysplasia surveillance. These biopsy specimens from the ? ascending colon, transverse colon, descending/sigmoi d colon and rectum ? were sent to Pathology. ? The inflammation was graded as Rutgeerts Score i2a (lesions confined to ? the ileocolonic anastomosis). The remainder of the neoi-terminal ileum ? was normal. Only distal 3-5 cm could be evaluated due to looping. ? There was evidence of a prior end-to-side ileo-colonic anastomosis in ? the ascending colon. This was patent and was characterized by erosion. ? The anastomosis was traversed. ? There was evidence of a prior end-to-end colo-colonic anastomosis in the ? distal sigmoid colon (20 cm from anal verge). This was patent and was ? characterized by healthy appearing mucosa. The anastomosis was ? traversed. There was a dimple at the site of anastomosis with possible ? adherent suture material. It is possible this could be an old fistula ? but I favor this being part of the anastomosis. ? The exam was otherwise without abnormality on direct and retroflexion ? views. ? Impression: ?- Perianal skin tags found on perianal exam. ? - Simple Endoscopic Score for Crohn's Disease: 0, ? mucosal inflammatory changes secondary to Crohn's ? disease, in remission. Biopsied. ? - Rutgeerts Score i2a ( lesions confined to the ? ileocolonic anastomosis). ? - Patent end-to-side ileo-colonic anastomosis, ? characterized by erosion. (thus Rutgeert's 12a) ? - Patent end-to-end colo-colonic anastomosis, ? characterized by healthy appearing mucosa. ? - The examination was otherwise normal on direct and ? retroflexion views. ? Overall this exam looks excellent. He has mucosal ? healing. Only some mild erosion/ulceratio n at the IC ? anastomosis. Remainder of the ileum and colon look ? normal. Recommendation: ?- Discharge patient to home (with escort). ? - Resume previous diet. ? - Continue present medications. ? - Await pathology results. ? - Repeat colonoscopy in 2 years for surveillance. ? - Return to GI clinic. ? Electronically Signed by: Dr. Megha Sanford MEGHA SANFORD MD 09/29/2023 12:15:10 PM I was physically present for the entire viewing portion of the exam. Signature of teaching physician MEGHA SANFORD MD Number of Addenda: 0 Note Initiated On: 09/29/2023 9:29 AM Scope In: 11:39:45 AM Scope Out: 12:00:16 PM RADIOLOGY RESULTS 09/29/2023 9:29 AM ACCOUNTS RECEIVABLE ADMINISTRATOR Megha Sanford MD PROCEDURES RADIOLOGY RESULTS from Last 3 Months or Most Recently Relevant to Health Maintenance Advance Directives For more information, please contact: [phone] * Full Code (Latest Code Status on File) Date Activated Date Inactivated Comments 02/28/2022 4:20 AM 02/28/2022 6:03 PM All basic an d advanced life-sustaining interventions are performed as appropriate Question Answer Comments Code status determined by: Discussion with patie nt/ legal decision maker * Full Code Date Activated Date Inactivated Comments 12/03/2021 3:04 AM 12/04/2021 2:27 PM All basic an d advanced life-sustaining interventions are performed as appropriate Question Answer Comments Code status determined by: Discussion with patie nt/ legal decision maker Care Teams Residential Sales Associate Relationship Specialty Start Date End Date Sushant Schreiber MD [address] [address] PCP - General Family Medicine 12/02/21 No Ref-Primary, Physician 12/02/21 Cisco Wooten MD [address] [place] [address] [address] [place], [place] [phone] Fellow Gastroenterology 12/09/21 Yung Rodriguez MD [address] , [facility] [address] [place], [place] [phone] Cardiovascular Disease 12/25/21 Tatianna Horne, [facility] [address] [place] [address] [phone] Pharmacist Pharmacist [employer] Founder 02/06/22 Billie Tucker, JANELL Specialty Marble Setter Helper Gastroenterology 12/10/22 Megha Sanford MD [address] [place] [address] Gastroenterology 12/25/22 Megha Sanford MD [address] [place] [address] Referring Physician Gastroenterology 01/14/23 Jt aWters MD [address] [place] [address] Dermatology 01/14/23 Bhavik Segura PA-C [address] [place] [address] Physician Telephone Operator Chief Gastroenterology 04/28/23 Megha Sanford MD [address] [place] [address] Assigned Gastroenterology Provider 07/18/23 Favian Mcknight MD [address] [place] [address] Dermatology 12/09/23 Favian Mcknight MD [address] [place] [address] Assigned Surgical Provider 01/29/24
--- OUTSIDE RECORDS SUMMARY | 2024-06-14 19:45 | XMS_ITS | Encounter Summary ---
Author Organization [place] Address [address] [place] [address] Care Team Providers Care Copy Reader Name Role Phone Sushant Schreiber MD Primary Care Provider No Ref-Primary, Physician Unavailable [phone] Cisco Caceres MD Unavailable Yung Rodriguez MD Unavailable Tatianna Horne [facility] Unavailable [phone] Billie Tucker RN Unavailable Unavailable Paul Sanford MD Unavailable [phone] Paul Sanford MD Unavailable Jt Waters MD Unavailable Bhavik Segura PA-C Unavailable Paul Sanford MD Unavailable Favian Mcknight MD Unavailable Favian Mcknight MD Unavailable Reason for Visit * Reason Onset Date Comments Call Back 06/07/2024 Encounter Details Date Type Department Care Team (Late st Contact Info) Description 06/07/2024 Telephone [facility] [place] [id number] [facility] [address]th [place] [address] Paul Sanford MD [address] [place] [address] Call Back Social History Tobacco Use Types Packs/Day Years [...] encounter Miscellaneous Notes * Telephone Encounter - Billie Tucker RN - 06/07/2024 3:41 PM CDT Images from the original note were not included. Most recent clinic visit: 12/08/23 [email or web address] message sent to clinic coordinators requesting assistance with scheduling patient for follow up appointment with [facility]. Patient updated via [employer]. * Telephone Encounter - Demetri Zayas - 06/07/2024 8:39 AM CDT [facility] Phone Message May a detailed message be left on voicemail: yes Reason for Call: Other: Demetri is calling in asking for a call back to discuss how he should proceedwith scheduling for a follow-up visit, as he cannot wait to be seen until Dr. Sanford's next available appt in December 2024. Please call back as soon as possible to discuss. Action Taken: Message routed to: [facility] GI Travel Screening: Not Applicable Date of Service: documented in this encounter Plan of Treatment Upcoming Encounters Date Type Department Care Team ([facility] st Contact Info) Description 06/15/2024 9:00 AM CDT Virtual Visit [facility] [address] [place] [address] Paul Sanford MD [address] [place] [address] [phone] [facility] [address] [place] [address] documented as of this encounter Visit Diagnoses Not on filedocumented in this encounter Care Teams Copy Reader Relationship Specialty Start Date End Date Sushant Schreiber MD [facility] [address] [place] [address] PCP - General Family Medicine 12/02/21 No Ref-Primary, Physician 12/02/21 Cisco Caceres MD [address] [place] [address] [id number] Fellow Gastroenterology 12/09/21 Yung Rodriguez MD [address] , [facility] [address] [place] [address] Cardiovascular Disease 12/25/21 Tatianna Horne, [facility] [address] [place] [address] Pharmacist Pharmacist Water Conservationist 02/06/22 Billie Tucker, JANELL Specialty Senior Ecologist Gastroenterology 12/10/22 Paul Sanford MD [address] [place] [address] Gastroenterology 12/25/22 Paul Sanford MD [address] [place] [address] Referring Physician Gastroenterology 01/14/23 Jt Waters MD [address] [place] [address] Dermatology 01/14/23 Bhavik Segura PA-C [address] [place] [address] Physician Fill Plant Operator Gastroenterology 04/28/23 Paul Sanford MD [address] [place] [address] Assigned Gastroenterology Provider 07/18/23 Favian Mcknight MD [address] [place] [address] Dermatology 12/09/23 Favian Mcknight MD [address] [place] [address] Assigned Surgical Provider 01/29/24 documented as of this encounter
--- OUTSIDE RECORDS SUMMARY | 2024-06-14 19:45 | XMS_ITS | Clinical Summary ---
Author Organization [place] Address [address] [place] [address] Care Team Providers Care Multi Township Assessor Name Role Phone Sushant Schreiber MD Primary Care Provider [phone] No Ref-Primary, Physician Unavailable [phone] Cisco Wooten MD Unavailable [phone] Yung Rodriguez MD Unavailable Tatianna Horne [facility] Unavailable Billie Tucker RN Unavailable Unavailable Megha Sanford MD Unavailable Megha Sanford MD Unavailable [phone] Jt Waters MD Unavailable Bhavik Segura PA-C Unavailable [phone] Megha Sanford MD Unavailable Favian Mcknight MD Unavailable [phone] Favian Mcknight MD Unavailable [phone] Allergies Active Allergy Reactions Criticality Noted Date [...] SCREENING; LDL GOAL LESS THAN 160 09/15/2010 Encounters Date Type Department Care Team Description 06/10/2024 Telephone [facility] [address] [address] Paula Jane PA-C Appointment 06/08/2024 Telephone [facility] [address] [address] Paula Jane PA-C Appointment 06/07/2024 MyC Medical Advice [facility] [address] [address] Billie Tucker, JANELL Crohn's disease of both small and large intestine with other complication (H) (Primary Dx) 06/07/2024 Telephone [facility] [address] [phone] Megha Sanford MD Call Back 05/09/2024 Documentation Only [facility] [address] [place] [phone] Lyudmila Baltazar RN Home Infusion 03/31/2024 Telephone [facility] Dermatology Clinic [address] 3rd [place] [address] Favian Mcknight MD Clinic Care Coordination - Initial 03/18/2024 Telephone [facility] [address] 4th [place] [address] Cisco Wooten MD Appointment 03/16/2024 MyC Medical Advice [facility] [address] [place] [address] Tatianna Horne [facility] 03/16/2024 Telephone [facility] Virtual Urgent Care [address] [address] Cisco Wooten MD Appointment from Last 3 Months Family History Medical History Relation Comments Family History Negative Other Relation Status Comments Other Social History Tobacco Use Types Packs/Day Years [...] Comments Blood Pressure 156/96 01/20/2024 8:00 AM LOCATE TECHNICIAN Pulse 77 01/20/2024 8:00 AM LOCATE TECHNICIAN Temperature 36.7 ??C (98.1 ??F) 11/21/2023 12:[address] Respiratory Rate 18 11/21/2023 12:59 AM LOCATE TECHNICIAN Oxygen Saturation 96% 01/20/2024 8:00 AM LOCATE TECHNICIAN Inhaled Oxygen Concentration - - Weight 127.5 kg (281 lb) 01/20/2024 8:00 AM LOCATE TECHNICIAN Height 181.6 cm (5' 11.5) 01/20/2024 8:00 AM CS T pt reported Body Mass Index 38.65 01/20/2024 8:00 AM LOCATE TECHNICIAN Plan of Treatment Upcoming Encounters Date Type Department Care Team (Late st Contact Info) Description 06/15/2024 9:00 AM CDT Virtual Visit [facility] [address] [place] [address] Megha Sanford MD [address] [place] [address] Tatianna Horne, [address] [address] Health Maintenance Due Date Last Done Comments ADVANCE CARE PLANNING 1990 ANNUAL REVIEW OF HM ORDERS 1988 CT COLONOGRAPHY 1988 FIT 1988 FLEX SIG 1988 URINE DRUG SCREEN 1988 sDNA (Cologuard) 1988 IPV IMMUNIZATION (2 of 3 - 4-dose series) 11/29/1992 11/01/1992 Pneumococcal Vaccine: Pediatrics (0 to 5 Years) and At-Risk Patients (6 to 64 Years) (1 of 2 - PCV) 1994 HEPATITIS B IMMUNIZATION (2 of 3 - 3-dose series) 04/25/2002 03/28/2002 YEARLY PREVENTIVE VISIT 06/07/2005 06/07/2004 COVID-19 Vaccine (3 - Moderna risk series) 08/27/2021 07/30/2021, 07/02/2021 INFLUENZA VACCINE (#1) 2024 , 07/27/2012, 09/17/2010 COLONOSCOPY 09/29/2025 09/29/2023, 09/29/2023 COLORECTAL CANCER SCREENING 09/29/2025 GLUCOSE 12/08/2026 12/08/2023, 0 04/2024, 12/25/2022, Additional history exists DTAP/TDAP/TD IMMUNIZATION (5 - Td or Tdap) 06/18/2030 06/18/2020, 01/14/2010, 01/14/2009, Additional history exists PHQ-2 (once per calendar year) Completed 12/08/2023, 12/09/2022, 04/01/2022, Additional history exists HEPATITIS C SCREENING Completed 01/20/2024, 021 HIV SCREENING Completed 01/20/2024 HPV IMMUNIZATION Aged Out No longer e ligible based on patient's age to complete this topic MENINGITIS IMMUNIZATION Aged Out No l onger eligible based on patient's age to complete this topic RSV MONOCLONAL ANTIBODY Aged Out No l onger eligible based on patient's age to complete this topic Procedures Procedure Name Priority Date/Time Associated Diagnosis [...] ANTIGEN ANTIBODY COMBO Add-On 01/20/2024 10:09 AM LOCATE TECHNICIAN Crohn's disease of small intestine with abscess (H) High risk medication use HEPATITIS C ANTIBODY Add-On 01/20/2024 10:09 AM LOCATE TECHNICIAN Crohn's disease of small intestine with abscess (H) High risk medication use BASIC METABOLIC PANEL Routine 12/08/2023 4:39 PM LOCATE TECHNICIAN Arthralgia, unspecified joint High risk medication use CRP elevated COLONOSCOPY Routine 09/29/2023 9:29 AM LOCATE TECHNICIAN from Last 3 Months or Most Recently [...] Sanford MD LAB - BLOOD O RDERABLES RH LABORATORY [facility] Acute Care Lab [address] [facility] Lab (1st floor, no room number) [place] [address] * Hepatic function panel (05/09/2024 1:35 PM CDT) Protein Total 8.0 6.4 - 8.3 g/dL [...] - 0.30 mg/dL 05/09/2024 3:01 PM CDT LABORATORY Blood BLOOD SPECIMEN / Unknown Client Draw / Unknown 05/09/2024 1:35 PM CDT 05/09/2024 2:39 PM CDT Megha Sanford MD LAB - BLOOD O RDERABLES [facility] [address] [facility] Lab (1st floor, no room number) [address] * (ABNORMAL) CRP inflammation (05/09/2024 1:35 PM CDT) CRP Inflammation 5.34(H) <5.00 mg/L 05/09/2024 3:01 PM CDT LABORATORY Blood BLOOD SPECIMEN / Unknown Client Draw / Unknown 05/09/2024 1:35 PM CDT 05/09/2024 2:39 PM CDT Megha Sanford MD LAB - BLOOD O RDERALYUDMILA [facility] Acute [facility] Lab [address] [facility] (1st floor, no room number) [address] * HIV Antigen Antibody Combo [place] (01/20/2024 10:09 AM LOCATE TECHNICIAN) HIV Antigen Antibody Combo Nonreactive Nonreactive 01/20/2024 10:07 PM LOCATE TECHNICIAN [facility] Comment:Negative HIV-1/-2 an tigen and antibody screening test results usually indicate the absence of HIV-1 and HIV-2 infection. However, such negative results do not rule-out acute HIV infection. If acute HIV-1 or HIV-2 infection is suspected, detection of HIV-1 or HIV-2 RNA is recommended. Blood STRUCTURE OF RIGHT UPPER LIMB / Unknown Venipuncture / Unknown 01/20/2024 10:09 AM LOCATE TECHNICIAN 01/20/2024 10:09 AM LOCATE TECHNICIAN Miguel Stoll MD LAB - BLOOD ORDER SHANDA Performing Organization Address City/[facility]/ZIP Co de Phone Number LABORATORY [facility] [place] Core Lab [address] [facility], [address] [address], [facility] [phone] * Hepatitis C antibody (01/20/2024 10:09 AM LOCATE TECHNICIAN) Pathologist [facility] Hepatitis C Antibody Nonreactive Nonreactive 01/20/2024 10:28 PM LOCATE TECHNICIAN LABORATORY Comment:A nonreactive screen ing test result [...] Unknown Venipuncture / Unknown 01/20/2024 10:09 AM LOCATE TECHNICIAN 01/20/2024 10:09 AM LOCATE TECHNICIAN Miguel Stoll MD LAB - BLOOD ORDER SHANDA Performing Organization Address City/[facility] de Phone Number LABORATORY [facility] [place] [facility] [address] [facility], [address] [address], [facility] [phone] * (ABNORMAL) Basic metabolic panel (12/08/2023 4:39 PM LOCATE TECHNICIAN) [facility] Sodium 139 135 - 145 mmol/L 12/08/2023 5:06 PM LOCATE TECHNICIAN [facility] Comment:Reference intervals for this test were updated on 08/11/2023 to more accurately reflect our healthy population. There may be differences in the flagging of prior results with similar values performed with this method. Interpretation of those prior results can be made in the context of the updated reference intervals. Potassium 3.7 3.4 - 5.3 mmol/L 12/08/2023 5:06 PM [facility] Chloride 102 98 - 107 mmol/L 12/08/2023 5:06 PM [facility] Carbon Dioxide (CO2) 28 22 - 29 mmol/L 12/08/2023 5:06 PM [facility] Anion Gap 9 7 - 15 mmol/L 12/08/2023 5:06 PM [facility] Urea Nitrogen 13.7 6.0 - 20.0 mg/dL 12/08/2023 5:06 PM [facility] Creatinine 0.87 0.67 - 1.17 mg/dL 12/08/2023 5:06 PM [facility] GFR Estimate >90 >60 mL/min/1. 73m2 12/08/2023 5:06 PM [facility] Calcium 9.3 8.6 - 10.0 mg/dL 12/08/2023 5:06 PM [facility] Glucose 108(H) 70 - 99 mg/dL 12/08/2023 5:06 PM [facility] Blood STRUCTURE OF LEFT UPPER LIMB / Unknown Venipuncture / Unknown 12/08/2023 4:39 PM LOCATE TECHNICIAN 12/08/2023 4:39 PM LOCATE TECHNICIAN Megha Sanford MD LAB - BLOOD O RDERABLES [facility] [address] [place] [address] 1st [place] [address] * COLONOSCOPY (09/29/2023 9:29 AM LOCATE TECHNICIAN) [facility] COLONOSCOPY [facility] [address] [place] [address] [phone] ? Endoscopy Department Patient Name: Demetri Castillo ?Procedure Date: 09/29/2023 9:29 AM ? Date of : 1990 ? Admit Type: Outpatient Age: 33 ? Room: [facility] 02 Gender: Male ?Note Status: [...] osteomyelitis). Providers: ? MEGHA SANFORD MD, Ashley Lopez RN, SKY ? JASBIR LAMB Referring MD: ?MEGHA [...] ileo-colonic anastomosis, ? 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 - Patent end-to-end colo-colonic anastomosis, [...] 12:00:16 PM RADIOLOGY RESULTS 09/29/2023 9:29 AM LOCATE TECHNICIAN Megha Sanford MD PROCEDURES RADIOLOGY RESULTS from Last 3 Months or Most Recently Relevant to Health Maintenance Advance Directives For more information, please contact: [phone] * Full Code (Latest Code Status on [...] patie nt/ legal decision maker Care Teams Multi Township Assessor Relationship Specialty Start Date End Date Sushant Schreiber MD [facility] [address] [place] [address] PCP - General Family Medicine 12/02/21 No Ref-Primary, Physician 12/02/21 Cisco Wooten MD [address] [place] [address] [address] [place], [place] 797205 Fellow Gastroenterology 12/09/21 Yung Rodriguez MD [address], [facility] [address] [place] [address] Cardiovascular Disease 12/25/21 Tatianna Horne, [facility] [address] [place] [address] Pharmacist Pharmacist Plastics Nurse 02/06/22 Billie Tucker, RN Specialty Railroad Car Loader Gastroenterology 12/10/22 Megha Sanford MD [address] [place] [address] Gastroenterology 12/25/22 Megha Sanford MD [address] [place] [address] Referring Physician Gastroenterology 01/14/23 Jt Waters MD [address] [place] [address] Dermatology 01/14/23 Bhavik Segura PA-C [address] [place] [address] Physician Public Safety Director Gastroenterology 04/28/23 Megha Sanford MD [address] [place] [address] Assigned Gastroenterology Provider 07/18/23 Favian Mcknight MD [address] [place] [address] Dermatology 12/09/23 Favian Mcknight MD [address] [place] [address] Assigned Surgical Provider 01/29/24
--- OUTSIDE RECORDS SUMMARY | 2024-06-14 19:45 | XMS_ITS | Encounter Summary ---
Author Organization [place] Address [address] [place] [address]609 Care Team Providers Care Fitting Room Maintenance Mechanic Name Role Phone Sushant Schreiber MD Primary Care Provider No Ref-Primary, Physician Unavailable [phone] Cisco Caceres MD Unavailable [phone] Yung Rodriguez MD Unavailable Tatianna Horne [facility] Unavailable Billie Tucker RN Unavailable Unavailable Paul Sanford MD Unavailable Paul Sanford MD Unavailable Jt Waters MD Unavailable Bhavik Segura PA-C Unavailable [phone] Paul Sanford MD Unavailable Favian Mcknight MD Unavailable [phone] Favian Mcknight MD Unavailable [phone] Reason for Referral * Med Therapy Management (Routine: Next available opening) - Pending Review Specialty Diagnoses / Procedures Referred By Rhina shah Referred To Contact Pharmacist Diagnoses Crohn's disease of both small and large intestine with other complication (H) Paul Sanford MD [address] [place] [address] Referral ID Status Reason Start Date Expiration Date V isits Requested Visits Authorized [id number] Pending Review 06/13/2024 06/13/2025 1 1 Question Answer Type of MTM: Specialty Specialty: GI Med Course of Action: Other Reason for Referral: medicaiton maintenance Additional Information: already scheduled Comments [facility] Medication Therapy Management department will contact you to schedule an appointment. You may also schedule the appointment by calling or toll-free at . This service is designed to help you get the most from your medications. A specially trained Pharmacist will work closely with you and your providers to solve any questions, concerns, issues or problems related to your medications. Please bring all of your prescription and non-prescription medications (such as vitamins, vphz-nac-tppqwcq medications, and herbals) or a detailed medication list to your appointment. If you have a glucose meter or other home monitoring information, please also bring this to your appointment (i.e. blood glucose log, blood pressure log, pain log, etc.). Encounter Details Date Type Department Care Team (Latest Contact Info) Description 06/07/2024 MyC Medical Advice [facility] Gastroenterology Clinic [address] [place] [address] Billie Tucker, RN Crohn's disease of both small and large intestine with other complication (H) (Primary Dx) Social History Tobacco Use Types Packs/Day Years [...] on file documented as of this encounter Plan of Treatment Upcoming Encounters Date Type Department Care Team (Late st Contact Info) Description 06/15/2024 9:00 AM CDT Virtual Visit [facility] [address] [place] [phone] Paul Sanford MD [address] [place] [address] [address] [phone] Scheduled Referrals Name Type Priority Associated Diagnoses Orde r Schedule Med Therapy Management Referral Referral Routine: Next available opening Crohn's disease of both small and large intestine with other complication (H) Ordered: 06/13/2024 documented as of this encounter Visit Diagnoses Diagnosis Crohn's disease of both small and large intestine with other complication (H)- Primary documented in this encounter Care Teams Fitting Room Maintenance Mechanic Relationship Specialty Start Date End Date Sushant Schreiber MD [facility] - [address] [address] PCP - General Family Medicine 12/02/21 No Ref-Primary, Physician 12/02/21 Cisco Caceres MD [address] [place] [address] [id number] Fellow Gastroenterology 12/09/21 Yung Rodriguez MD [address] [facility] [address] [place], [place] 359[address] Cardiovascular Disease 12/25/21 [facility] [address] [place] [address] [phone] Pharmacist Pharmacist Plumbing Mechanic 02/06/22 Billie Tucker, RN Specialty Residential Solar Sales Consultant Gastroenterology 12/10/22 Paul Sanford MD [address] [place] [address] Gastroenterology 12/25/22 Paul Sanford MD 500 [place] [address] Referring Physician Gastroenterology 01/14/23 Jt Waters MD 500 [place] [address] Dermatology 01/14/23 Bhavik Segura PA-C [address] [place] [address] Physician Lead Handler Gastroenterology 04/28/23 Paul Sanford MD [address] [place] [address] Assigned Gastroenterology Provider 07/18/23 Favian Mcknight MD [address] [place] [address] Dermatology 12/09/23 Favian Mkcnight MD [address] [place] [address] Assigned Surgical Provider 01/29/24 documented as of this encounter
--- OUTSIDE RECORDS SUMMARY | 2024-06-14 19:46 | XMS_ITS | Encounter Summary ---
Author Organization [place] Address [address] [place] [address] Care Team Providers Care Shuttle Fitting Supervisor Name Role Phone Sushant Schreiber MD Primary Care Provider No Ref-Primary, Physician Unavailable [phone] Cisco Caceres MD Unavailable [phone] Yung Rodriguez MD Unavailable Tatianna Horne [facility] Unavailable Billie Tucker RN Unavailable Unavailable Paul Sanford MD Unavailable Paul Sanford MD Unavailable [phone] Jt Waters MD Unavailable Bhavik Segura PA-C Unavailable [phone] Paul Sanford MD Unavailable Favian Mcknight MD Unavailable Favian Mcknight MD Unavailable [phone] Encounter Details Date Type Department Care Team (Late st Contact Info) Description 03/16/2024 [facility] [address] [place] [address] Tatianna Horne, [facility] [place] [address] Social History Tobacco Use Types Packs/Day Years [...] Description 06/15/2024 9:00 AM CDT Virtual Visit [facility] [address] [place] [phone] Paul Sanford MD [address] [place] [address] 910205 [address] 047[address] documented as of this encounter Visit Diagnoses Not on filedocumented in this encounter Care Teams Shuttle Fitting Supervisor Relationship Specialty Start Date End Date Sushant Schreiber MD [facility] [address] [place] [address] PCP - General Family Medicine 12/02/21 No Ref-Primary, Physician 12/02/21 Cisco Caceres MD [address] [place] [address] 284 [place], [place] [phone] Fellow Gastroenterology 12/09/21 Yung Rodriguez MD [address], [place] [address] [place] 137525 Cardiovascular Disease 12/25/21 Tatianna Horne, [facility] [address] [place] [address] Pharmacist Pharmacist Shuttle Veneering Supervisor 02/06/22 Billie Tucker, RN Specialty Multimedia Manager Gastroenterology 12/10/22 Paul Sanford MD [address] [place] [address] Gastroenterology 12/25/22 Paul Sanford MD [address] [place] [address] Referring Physician Gastroenterology 01/14/23 Jt Waters MD [address] [place] [address] Dermatology 01/14/23 Bhavik Segura PA-C [address] [place] [address] Physician Facilities Manager Gastroenterology 04/28/23 Paul Sanford MD [address] [place] [address] Assigned Gastroenterology Provider 07/18/23 Favian Mcknight MD [address] [place] [address] Dermatology 12/09/23 Favian Mcknight MD [address] [place] [address] Assigned Surgical Provider 01/29/24 documented as of this encounter
--- OUTSIDE RECORDS SUMMARY | 2024-06-14 19:46 | XMS_ITS | Encounter Summary ---
Author Organization [place] Address [address] [place] [address] Care Team Providers Care Death Claim Clerk Name Role Phone Sushant Schreiber MD Primary Care Provider No Ref-Primary, Physician Unavailable [phone] Cisco Caceres MD Unavailable [phone] Yung Rodriguez MD Unavailable Tatianna Horne [facility] Unavailable Billie Tucker RN Unavailable Unavailable Paul Sanford MD Unavailable Paul Sanford MD Unavailable Jt Waters MD Unavailable Bhavik Segura PA-C Unavailable [phone] Paul Sanford MD Unavailable Favian Mcknight MD Unavailable [phone] Favian Mcknight MD Unavailable Reason for Visit * Reason Onset Date Comments Patient/info Update 03/11/2024 Encounter Details Date Type Department Care Team (Late st Contact Info) Description 03/11/2024 Telephone [facility] [place] [address] [place] [address] Miguel Stoll MD 420 [facility] 108 [place] [address] Patient/info Update Social History Tobacco Use Types Packs/Day Years [...] encounter Miscellaneous Notes * Telephone Encounter - Sky Aldridge - 03/11/2024 12:06 PM CDT LVM with pre-registration's # to update/ verify registration information for upcoming appointments on 03/23/2024. OZIEL Harrell documented in this encounter Plan of Treatment Upcoming Encounters Date Type Department Care Team (Late st Contact Info) Description 06/15/2024 9:00 AM CDT [facility] [address] [place] [address] Paul Sanford MD [address] [place] [address] 7565[address] [address] documented as of this encounter Visit Diagnoses Not on filedocumented in this encounter Care Teams Death Claim Clerk Relationship Specialty Start Date End Date Sushant Schreiber MD [facility] [address] [place] [address] PCP - General Family Medicine 12/02/21 No Ref-Primary, Physician 12/02/21 Cisco Caceres MD [address] [place] [address] 669825 Fellow Gastroenterology 12/09/21 Yung Rodriguez MD [address] , [facility] [address] [place], [place] 022675 Cardiovascular Disease 12/25/21 Tatianna Horne, [facility] [address] [place] [address] 096515 Pharmacist Pharmacist Rn Or Lpn 02/06/22 Billie Tucker, RN Specialty Proofreader Gastroenterology 12/10/22 Paul Sanford MD [address] [place] [address] 162355 Gastroenterology 12/25/22 Paul Sanford MD [address] [place] [address] 221525 Referring Physician Gastroenterology 01/14/23 Jt Waters MD [address] [place] [address] 821165 Dermatology 01/14/23 Bhavik Segura PA-C [address] [place] [address] 293115 Physician Senior Marketing Data Analyst Gastroenterology 04/28/23 Paul Sanford MD [address] [place] [address] 979025 Assigned Gastroenterology Provider 07/18/23 Favian Mcknight MD 909 [place] [address] Dermatology 12/09/23 Favian Mcknight MD [address] [place] [address] Assigned Surgical Provider 01/29/24 documented as of this encounter
--- OUTSIDE RECORDS SUMMARY | 2024-06-14 19:46 | XMS_ITS | Encounter Summary ---
Author Organization [place] Address [address] [place] [address] Care Team Providers Care Boiler Erector Name Role Phone Sushant Schreiber MD Primary Care Provider [phone] No Ref-Primary, Physician Unavailable [phone] Cisco Caceres MD Unavailable [phone] Yung Rodriguez MD Unavailable Tatianna Horne [facility] Unavailable [phone] Billie Tucker RN Unavailable Unavailable Palu Sanford MD Unavailable Paul Sanford MD Unavailable [phone] Jt Waters MD Unavailable Bhavik Segura PA-C Unavailable [phone] Paul Sanford MD Unavailable [phone] Favian Mcknight MD Unavailable [phone] Favian Mcknight MD Unavailable Reason for Visit * Reason Onset Date Comments Appointment 03/16/2024 Encounter Details Date Type Department Care Team (Late st Contact Info) Description 03/16/2024 Telephone [facility] [address] [address] Cisco Caceres MD [address] [address] Appointment Social History Tobacco Use Types Packs/Day [...] Telephone Encounter - Maria Teresa Garcia - 03/16/2024 3:41 PM CDT Left Voicemail (1st Attempt) for the patient to call back and schedule the following: Appointment type: return IBD Provider: Return date: 04/19/24 reschedule to 04/26/24 Specialty phone number: [phone] Additional appointment(s) needed: Additonal Notes: * Dr Caceres- Your clinic schedule has moved to April 26 and May 10 patients are being rescheduled from the and . documented in this encounter Plan of Treatment Upcoming Encounters Date Type Department Care Team (Late st Contact Info) Description 06/15/2024 9:00 AM CDT Virtual Visit [facility] [address] [place] [address] Paul Sanford MD [address] [place] [address] [address] [address] documented as of this encounter Visit Diagnoses Not on filedocumented in this encounter Care Teams Boiler Erector Relationship Specialty Start Date End Date Sushant Schreiber MD [facility] & [address] [address] PCP - General Family Medicine 12/02/21 No Ref-Primary, Physician 12/02/21 Cisco Caceres MD [address] [place] [address] 284 [place] [address] Fellow Gastroenterology 12/09/21 Yung Rodriguez MD [address] [facility] [address] [place] [address] Cardiovascular Disease 12/25/21 Tatianna Horne, [facility] [address] [place] [address] 173425 Pharmacist Pharmacist Shoe Repair Supervisor 02/06/22 Billie Tucker, RN Specialty Cosmetology Educator Gastroenterology 12/10/22 Paul Sanford MD [address] [place] [address] Gastroenterology 12/25/22 Paul Sanford MD [address] [place] [address] 665095 Referring Physician Gastroenterology 01/14/23 Jt Waters MD 500 [place] [address] Dermatology 01/14/23 Bhavik Segura PA-C [address] [place] [address] 826865 Physician Mixed Livestock Farmer Gastroenterology 04/28/23 Paul Sanford MD [address] [place] [address] Assigned Gastroenterology Provider 07/18/23 Favian Mcknight MD [address] [place] [address] MD Marcos 12/09/23 Favian Mcknight MD [address] [place] [address] 15[address] Assigned Surgical Provider 01/29/24 documented as of this encounter
--- OUTSIDE RECORDS SUMMARY | 2024-06-14 19:46 | XMS_ITS | Encounter Summary ---
Author Organization [place] Address [address] [place] [address] Care Team Providers Care Group Segment Consultant Name Role Phone Sushant Schreiber MD Primary Care Provider No Ref-Primary, Physician Unavailable [phone] Cisco Caceres MD Unavailable [phone] Yung Rodriguez MD Unavailable Tatianna Horne [facility] Unavailable Billie Tucker RN Unavailable Unavailable Paul Sanford MD Unavailable Paul Sanford MD Unavailable [phone] Jt Waters MD Unavailable Jt Waters MD Unavailable Bhavik Segura PA-C Unavailable [phone] Paul Sanford MD Unavailable [phone] Favian Mcknight MD Unavailable [phone] Favian Mcknight MD Unavailable [phone] Encounter Details Date Type Department Care Team (Late st Contact Info) Description 12/23/2023 [facility] [address] [address] Elsa Ayala, RN Social History Tobacco Use Types Packs/Day Years [...] Description 06/15/2024 9:00 AM CDT Virtual [facility] 909 [place] [phone] Paul Sanford MD [address] [place] [address] 396595 [address] 692135 documented as of this encounter Visit Diagnoses Not on filedocumented in this encounter Care Teams Group Segment Consultant Relationship Specialty Start Date End Date Sushant Schreiber MD [facility] [address] [place] [address] PCP - General Family Medicine 12/02/21 No Ref-Primary, Physician 12/02/21 Cisco Caceres MD [address] [place] [address] 284 [place], [place] 087975 Fellow Gastroenterology 12/09/21 Yung Rodriguez MD [address] [facility] [address] [place] [address] Cardiovascular Disease 12/25/21 [facility] 909 [place] [address] Pharmacist Pharmacist Linux Unix Administrator 02/06/22 Billie Tucker, RN Specialty Disaster Recovery Analyst Gastroenterology 12/10/22 Paul Sanford MD [address] [place] [address] Gastroenterology 12/25/22 Paul Sanford MD [address] [place] [address] Referring Physician Gastroenterology 01/14/23 Jt Waters MD [address] [place] [address] Dermatology 01/14/23 Jt Waters MD [address] [place] [address] Assigned Surgical Provider 01/17/23 01/28/24 Bhavik Segura PA-C [address] [place] [address] Physician Driver License Agent Gastroenterology 04/28/23 Paul Sanford MD [address] [place] [address] Assigned Gastroenterology Provider 07/18/23 Favian Mcknight MD [address] [place] [address] Dermatology 12/09/23 Favian Mcknight MD [address] [place] [address] Assigned Surgical Provider 01/29/24 documented as of this encounter
--- OUTSIDE RECORDS SUMMARY | 2024-06-14 19:46 | XMS_ITS | Encounter Summary ---
Author Organization [place] Address [address] [place] [address]. [place] [address] Care Team Providers Care Pig Machine Operator Name Role Phone Sushant Schreiber MD Primary Care Provider No Ref-Primary, Physician Unavailable [phone] Cisco Caceres MD Unavailable [phone] Yung Rodriguez MD Unavailable Tatianna Horne [facility] Unavailable Billie Tucker RN Unavailable Unavailable Paul Sanford MD Unavailable [phone] Paul Sanford MD Unavailable Jt Waters MD Unavailable Bhavik Segura PA-C Unavailable [phone] Paul Sanford MD Unavailable Favian Mcknight MD Unavailable [phone] Favian Mcknight MD Unavailable Reason for Visit * Reason Comments Home Infusion Encounter Details Date Type Department Care Team (Late st Contact Info) Description 03/14/2024 Documentation Only [facility] [address] [place] [address] Ambreen Brown RN Home Infusion Social History Tobacco Use Types Packs/Day Years [...] on file documented as of this encounter Progress Notes * Ambreen Brown RN - 03/14/2024 11:59 PM CDT Skilled Nurse visit in the Patient Home to administer Inflectra 1300mg in 500mL of sodium chloride 0.9% IV over 2 hours. No recent elevated temperature, fever, chills, productive cough, coughing for 3 weeks or longer or hemoptysis, abnormal vital signs, night sweats, chest pain. No decrease in yourappetite, unexplained weight loss or fatigue. No other new onset medical symptoms. Current weight 27 6#. Peripheral IV left Hand, 2 attempts Pre medicated with Acetaminophen 650mg PO, Diphenhydramine 50mg PO, Methylprednisolone 40mg IVP over 5 minutes. Infusion completed without complication or reaction. Pt reports therapy is effective in managing symptoms related to therapy. Ambreen Brown RN, BSN, PHN, [facility] Home [facility]fusion [phone] documented in this encounter Plan of Treatment Upcoming Encounters Date Type Department Care Team (Late st Contact Info) Description 06/15/2024 9:00 AM CDT Virtual Visit [facility] [address] [place] [address] Paul Sanford MD [address] [place] [address] [phone] Tatianna Horne [facility] [address] [place] [address] documented as of this encounter Visit Diagnoses Not on filedocumented in this encounter Care Teams Pig Machine Operator Relationship Specialty Start Date End Date Sushant Schreiber MD [facility] - [address] [address] PCP - General Family Medicine 12/02/21 No Ref-Primary, Physician 12/02/21 Cisco Caceres MD [address] [place] [address] 114815 Fellow Gastroenterology 12/09/21 Yung Rodriguez MD [address] [facility] [address] [place], [place] 987615 Cardiovascular Disease 12/25/21 Tatianna Horne, [facility] [address] [place] [address] 130935 Pharmacist Pharmacist Trial [address] Justice 02/06/22 Billie Tucker, JANELL Specialty Inpatient Care Manager Rn Gastroenterology 12/10/22 Paul Sanford MD [address] [place] [address] 045325 Gastroenterology 12/25/22 Paul Sanford MD [address] [place] [address] Referring Physician Gastroenterology 01/14/23 Jt Waters MD [address] [place] [address] 152705 Dermatology 01/14/23 Bhavik Segura PA-C [address] [place] [address] Physician Material Handler 2Nd Shift Gastroenterology 04/28/23 Paul Sanford MD [address] [place] [address] Assigned Gastroenterology Provider 07/18/23 Favian Mcknight MD [address] [place] [address] MD Dermatology 12/09/23 Favian Mcknight MD [address] [place] [address] Assigned Surgical Provider 01/29/24 documented as of this encounter
--- OUTSIDE RECORDS SUMMARY | 2024-06-14 19:46 | XMS_ITS | Encounter Summary ---
Author Organization [place] Address [address] [place] [address] Care Team Providers Care Automatic Machines Supervisor Name Role Phone Sushant Schreiber MD Primary Care Provider No Ref-Primary, Physician Unavailable [phone] Cisco Caceres MD Unavailable [phone] Yung Rodriguez MD Unavailable Tatianna Horne [facility] Unavailable Billie Tucker RN Unavailable Unavailable Paul Sanford MD Unavailable Paul Sanford MD Unavailable Jt Waters MD Unavailable Bhavik Segura PA-C Unavailable [phone] Paul Sanford MD Unavailable Favian Mcknight MD Unavailable Favian Mcknight MD Unavailable Reason for Visit * Reason Onset Date Comments Appointment 03/18/2024 Encounter Details Date Type Department Care Team (Late st Contact Info) Description 03/18/2024 Telephone [facility] [place] 909 [facility] 4th [place] [address] Cisco Caceres MD 420 [facility] 284 [place] [address] Appointment Social History Tobacco Use Types [...] Telephone Encounter - Maria Teresa Garcia - 03/18/2024 4:13 PM CDT Left Voicemail (2nd Attempt) for the patient to call back and schedule the following: Appointment type: return IBD Provider: Dr. Caceres Return date: 04/19/24 Specialty phone number: [phone] Additional appointment(s) needed: Additonal Notes: documented in this encounter Plan of Treatment Upcoming Encounters Date Type Department Care Team (Late st Contact Info) Description 06/15/2024 9:00 AM CDT Virtual Visit [facility] [address] [place] [address] Paul Sanford MD [address] [place] [address] 697585 [address] [address] documented as of this encounter Visit Diagnoses Not on filedocumented in this encounter Care Teams Automatic Machines Supervisor Relationship Specialty Start Date End Date Sushant Schreiber MD [facility] [address] [place] [address] PCP - General Family Medicine 12/02/21 No Ref-Primary, Physician 12/02/21 Cisco Caceres MD [address] [place] [address] 530625 Fellow Gastroenterology 12/09/21 Yung Rodriguez MD [address] , [facility] [address] [place], [place] 715495 Cardiovascular Disease 12/25/21 Tatianna Horne, [facility] [address] [place] [address] [phone] Pharmacist Pharmacist Scraper Operator 02/06/22 Billie Tucker, RN Specialty Suction Worker Gastroenterology 12/10/22 Paul Sanford MD [address] [place] [address] MD Gastroenterology 12/25/22 Paul Sanford MD [address] [place] [address] Referring Physician Gastroenterology 01/14/23 Jt Waters MD [address] [place] [address] 317865 Dermatology 01/14/23 Bhavik Segura PA-C [address] [place] [place] [address] 693735 Physician Sweep Molder Gastroenterology 04/28/23 Paul Sanford MD [address] [place] [address] 491165 Assigned Gastroenterology Provider 07/18/23 Favian Mcknight MD 909 [place] [address] MD Dermatology 12/09/23 Favian Mcknight MD 9[address] [place] [address] Assigned Surgical Provider 01/29/24 documented as of this encounter
--- OUTSIDE RECORDS SUMMARY | 2024-06-14 19:46 | XMS_ITS | Encounter Summary ---
Author Organization [place] Address [address] [place] [address] Care Team Providers Care Monomer Recovery Supervisor Name Role Phone Sushant Schreiber MD Primary Care Provider No Ref-Primary, Physician Unavailable [phone] Cisco Caceres MD Unavailable [phone] Yung Rodriguez MD Unavailable Tatianna Horne [facility] Unavailable Billie Tucker RN Unavailable Unavailable Paul Sanford MD Unavailable Paul Sanford MD Unavailable Jt Waters MD Unavailable Jt Waters MD Unavailable Bhavik Segura PA-C Unavailable [phone] Paul Sanford MD Unavailable Favian Mcknight MD Unavailable [phone] Favian Mcknight MD Unavailable [phone] Encounter Details Date Type Department Care Team (Late st Contact Info) Description 12/23/2023 Jayme [facility]ology [facility] [place] 909 [facility] 4th [place] [address] Cisco Caceres MD 420 [facility] 284 [place] [address] Social History Tobacco Use Types [...] Description 06/15/2024 9:00 AM CDT Virtual Visit [facility] 909 [place] [phone] Paul Sanford MD [address] [place] [address] 941675 [facility] [address] [place] [address] 086305 documented as of this encounter Visit Diagnoses Not on filedocumented in this encounter Care Teams Monomer Recovery Supervisor Relationship Specialty Start Date End Date Sushant Schreiber MD [facility] & [address] [address] PCP - General Family Medicine 12/02/21 No Ref-Primary, Physician 12/02/21 Cisco Caceres MD [address] [place] [address] 284 [place], [place] 463495 Fellow Gastroenterology 12/09/21 Yung Rodriguez MD [address], [facility] [address] [place] 513[address] Cardiovascular Disease 12/25/21 Tatianna Horne [facility] 9 [place], [place] 323375 Pharmacist Pharmacist Orthotist 02/06/22 Billie Tucker, RN Specialty Child Therapist Gastroenterology 12/10/22 Paul Sanford MD 500 [place] [address] Gastroenterology 12/25/22 Paul Sanford MD [address] [place] [address] 00582 Referring Physician Gastroenterology 01/14/23 Jt Waters MD [address] [place] [address] Dermatology 01/14/23 Jt Waters MD [address] [place] [address] 42263 Assigned Surgical Provider 01/17/23 01/28/24 Bhavik Segura PA-C [address] [place] [address] 281415 Physician Claims Supervisor Gastroenterology 04/28/23 Paul Sanford MD [address] [place] [address] 56[address] Assigned Gastroenterology Provider 07/18/23 Favian Mcknight MD 9 [place], [place] 457305 Dermatology 12/09/23 Favian Mcknight MD 9 [place] [address] Assigned Surgical Provider 01/29/24 documented as of this encounter
--- OUTSIDE RECORDS SUMMARY | 2024-06-14 19:46 | XMS_ITS | Encounter Summary ---
Author Organization [place] Address [address] [place] [address] Care Team Providers Care Technical Support Representative Name Role Phone Sushant Schreiber MD Primary Care Provider No Ref-Primary, Physician Unavailable [phone] Cisco Caceres MD Unavailable [phone] Yung Rodriguez MD Unavailable Tatianna Horne [facility] Unavailable Billie Tucker RN Unavailable Unavailable Paul Sanford MD Unavailable [phone] Paul Sanford MD Unavailable [phone] Jt Waters MD Unavailable Jt Waters MD Unavailable Bhavik Segura PA-C Unavailable [phone] Paul Sanford MD Unavailable Favian Mcknight MD Unavailable [phone] Favian Mcknight MD Unavailable [phone] Encounter Details Date Type Department Care Team (Late st Contact Info) Description 01/12/2024 Jayme Collins [facility] [address] 3rd [place] [address] Diony [place] Social History Tobacco Use Types Packs/Day Years [...] Description 06/15/2024 9:00 AM CDT Virtual Visit [facility] 909 [place] [address] Paul Sanford MD [address] [place] [address] 522395 [address] 6[address] documented as of this encounter Visit Diagnoses Not on filedocumented in this encounter Care Teams Technical Support Representative Relationship Specialty Start Date End Date Sushant Schreiber MD [facility] [address] [place] [address] PCP - General Family Medicine 12/02/21 No Ref-Primary, Physician 12/02/21 Cisco Caceres MD [address] [place] [address] 284 [place], [place] 499735 Fellow Gastroenterology 12/09/21 Yung Rodriguez MD [address] [facility] [address] [place] [address] Cardiovascular Disease 12/25/21 [facility] 909 [place] [address] Pharmacist Pharmacist Tanner Rotary Drum Continuous Process 02/06/22 Billie Tucker, RN Specialty Wallpaper Cleaner Gastroenterology 12/10/22 Paul Sanford MD [address] [place] [address] Gastroenterology 12/25/22 Paul Sanford MD [address] [place] [address] Referring Physician Gastroenterology 01/14/23 Jt Waters MD [address] [place] [address] 184285 Dermatology 01/14/23 Jt Waters MD [address] [place] [address] 09684 Assigned Surgical Provider 01/17/23 01/28/24 Bhavik Segura PA-C [address] [place] [address] 762065 Physician Life Science Research Assistant Gastroenterology 04/28/23 Paul Sanford MD [address] [place] [address] Assigned Gastroenterology Provider 07/18/23 Favian Mcknight MD [address] [place] [address] Dermatology 12/09/23 Favian Mcknight MD [address] [place] [address] 35795 Assigned Surgical Provider 01/29/24 documented as of this encounter
--- OUTSIDE RECORDS SUMMARY | 2024-06-14 19:46 | XMS_ITS | Encounter Summary ---
Author Organization [facility] Address [address] [place] [address]. [place] [address] Care Team Providers Care Staff Appraiser Name Role Phone Sushant Schreiber MD Primary Care Provider No Ref-Primary, Physician Unavailable [phone] Cisco Caceres MD Unavailable [phone] Yung Rodriguez MD Unavailable Tatianna Horne [facility] Unavailable Billie Tucker RN Unavailable Unavailable Paul Sanford MD Unavailable Paul Sanford MD Unavailable [phone] Jt Waters MD Unavailable Bhavik Segura PA-C Unavailable [phone] Paul Sanford MD Unavailable Favian Mcknight MD Unavailable [phone] Favian Mcknight MD Unavailable Reason for Visit * Reason Comments Home Infusion Encounter Details Date Type Department Care Team (Late st Contact Info) Description 05/09/2024 Documentation Only [facility] [address] [place] [id number] Lyudmila Baltazar, RN Home Infusion Social History Tobacco Use [...] as of this encounter Progress Notes * Lyudmila Baltazar RN - 05/09/2024 2:54 PM CDT Skilled Nurse visit in the Patient Home to administer 1300mg IV Inflectra over 2 hours every 8 weeks. No recent elevated temperature, fever, chills, productive cough, coughing for 3 weeks or longer or hemoptysis, abnormal vital signs, night sweats, chest pain. No decrease in your appetite, unexplained weight loss or fatigue. No other new onset medical symptoms. Current weight 280 lbs. Peripheral IV left Lower Forearm, 1 attempt. Pre medicated with 650mg po Tylenol, 50mg po Benadryl, 40mg IV Methylprednisolone. Labs drawn CBCD, CRP, LFTs. Infusion completed without complication or reaction. Ptreports therapy is effective in managing symptoms related to therapy. Lyudmila Baltazar RN, MSN, OCN, MORALES [facility] documented in this encounter Plan of Treatment Upcoming Encounters Date Type Department Care Team (Late st Contact Info) Description 06/15/2024 9:00 AM CDT Virtual Visit [facility] [address] [place] [address] Paul Sanford MD [address] [place] [address] [phone] Tatianna Horne [address] [phone] documented as of this encounter Visit Diagnoses Not on filedocumented in this encounter Care Teams Staff Appraiser Relationship Specialty Start Date End Date Sushant Schreiber MD [facility] [address] [place] [address] PCP - General Family Medicine 12/02/21 No Ref-Primary, Physician 12/02/21 Cisco Caceres MD [address] [place] [address] [phone] Fellow Gastroenterology 12/09/21 Yung Rodriguez MD [address] [facility] [address] [place] [address] [phone] Cardiovascular Disease 12/25/21 Tatianna Horne, [facility] [address] [place] [address] [phone] Pharmacist Pharmacist Manufacturing Accountant 02/06/22 Billie Tucker, RN Specialty Switchboard Mechanic Gastroenterology 12/10/22 Paul Sanford MD [address] [place] [address] 076095 Gastroenterology 12/25/22 Paul Sanford MD [address] [place] [address]1257 Referring Physician Gastroenterology 01/14/23 Jt Waters MD [address] [place] [address] [id number] Dermatology 01/14/23 Bhavik Segura PA-C [address] [place] [address] [phone] Physician Gear Lapper Gastroenterology 04/28/23 Paul Sanford MD [address] [place] [address] 67853 Assigned Gastroenterology Provider 07/18/23 Favian Mcknight MD [address] [place] [address] [id number] MD Dermatology 12/09/23 Favian Mcknight MD [address] [place] [address] [phone] Assigned Surgical Provider 01/29/24 documented as of this encounter
--- OUTSIDE RECORDS SUMMARY | 2024-06-14 19:46 | XMS_ITS | Encounter Summary ---
Author Organization [facility] Address [address] [place] [address] Care Team Providers Care Correctional Facility Nurse Name Role Phone Sushant Schreiber MD Primary Care Provider No Ref-Primary, Physician Unavailable [phone] Cisco Caceres MD Unavailable [phone] Yung Rodriguez MD Unavailable Tatianna Horne [facility] Unavailable Billie Tucker RN Unavailable Unavailable Paul Sanford MD Unavailable Paul Sanford MD Unavailable Jt Waters MD Unavailable Bhavik Segura PA-C Unavailable Paul Sanford MD Unavailable [phone] Favian Mcknight MD Unavailable [phone] Favian Mcknight MD Unavailable Reason for Visit * Reason Onset Date Comments Clinic Care Coordination - Initial 03/31/2024 Encounter Details Date Type Department Care Team (Late st Contact Info) Description 03/31/2024 Telephone [facility] [address] 3rd [place] [address] Favian Mcknight MD [address] [place] [address] Clinic Care Coordination - Initial Social History Tobacco Use Types Packs/Day Years [...] encounter Miscellaneous Notes * Telephone Encounter - Ambreen Ronodn - 03/31/2024 9:48 AM CDT Lvm for the patient to call back and schedule the following: Appointment type: Return Allergy Provider: Dr. Mcknight Return date: [facility] Specialty phone number: [phone] documented in this encounter Plan of Treatment Upcoming Encounters Date Type Department Care Team (Late st Contact Info) Description 06/15/2024 9:00 AM CDT Virtual Visit [facility] [address] [place] [address] Paul Sanford MD [address] [place] [address] [phone] [address] [phone] documented as of this encounter Visit Diagnoses Not on filedocumented in this encounter Care Teams Correctional Facility Nurse Relationship Specialty Start Date End Date Sushant Schreiber MD [facility] [address] [place] [address] PCP - General Family Medicine 12/02/21 No Ref-Primary, Physician 12/02/21 Cisco Caceres MD [address] [place] [address] [phone] Fellow Gastroenterology 12/09/21 Yung Rodriguez MD [address] [facility] [address] [place], [place] [phone] Cardiovascular Disease 12/25/21 Tatianna Horne, [facility] [address] [place] [address] [phone] Pharmacist Pharmacist Jewelry Casting Model Maker Apprentice 02/06/22 Billie Tucker, RN Specialty Rubber Washer Gastroenterology 12/10/22 Paul Sanford MD [address] [place] [address] 16119 MD Gastroenterology 12/25/22 Paul Sanford MD [address] [place] [address] 00931 Referring Physician Gastroenterology 01/14/23 Jt Waters MD [address] [place] [address] Dermatology 01/14/23 Bhavik Segura PA-C [address] [place] [place] [address] 399285 Physician Retail Marketing Manager Gastroenterology 04/28/23 Paul Sanford MD [address] [place] [address] 70202 Assigned Gastroenterology Provider 07/18/23 Fvaian Mcknight MD [address] [place] [address] MD Rodríguez 12/09/23 Favian Mcknight MD [address] [place] [address] Assigned Surgical Provider 01/29/24 documented as of this encounter
--- OUTSIDE RECORDS SUMMARY | 2024-06-14 19:46 | XMS_ITS | Encounter Summary ---
Author Organization [facility] Address [address] [place] [address] 21235 Care Team Providers Care Department Administrator Name Role Phone Sushant Schreiber MD Primary Care Provider No Ref-Primary, Physician Unavailable [phone] Cisco Caceres MD Unavailable [phone] Yung Rodriguez MD Unavailable Tatianna Horne [facility] Unavailable [phone] Billie Tucker RN Unavailable Unavailable Paul Sanford MD Unavailable Paul Sanford MD Unavailable [phone] Jt Waters MD Unavailable Jt Waters MD Unavailable Bhavik Segura PA-C Unavailable [phone] Paul Sanford MD Unavailable [phone] Favian Mcknight MD Unavailable [phone] Favian Mcknight MD Unavailable [phone] Encounter Details Date Type Department Care Team (Late st Contact Info) Description 01/26/2024 [facility] [address] 4th [place] [address] Billie Tucker, RN Social History Tobacco Use Types Packs/Day [...] Description 06/15/2024 9:00 AM CDT Virtual Visit [facility] [address] [place] [address] Paul Sanford MD [address] [place] [address] 579855 [address] [phone] documented as of this encounter Visit Diagnoses Not on filedocumented in this encounter Care Teams Department Administrator Relationship Specialty Start Date End Date Sushant Schreiber MD [facility] [address] [place] [address] PCP - General Family Medicine 12/02/21 No Ref-Primary, Physician 12/02/21 Cisco Caceres MD [address] [place] [address] 578245 Fellow Gastroenterology 12/09/21 Yung Rodriguez MD [address] [facility] [address] [address] Cardiovascular Disease 12/25/21 [facility] 9[address] [place] [address] Pharmacist Pharmacist Propulsion Engineer 02/06/22 Billie Tucker, RN Specialty Salesperson Burial Plots Gastroenterology 12/10/22 Paul Sanford MD [address] [place] [address] 65291 Gastroenterology 12/25/22 Paul Sanford MD [address] [place] [address] 45256 Referring Physician Gastroenterology 01/14/23 Jt Waters MD [address] [place] [address] 20896 Dermatology 01/14/23 Jt Waters MD [address] [place] [address] 94880 Assigned Surgical Provider 01/17/23 01/28/24 Bhavik Segura PA-C [address] [place] [address] 83061 Physician Php Web Developer Gastroenterology 04/28/23 Paul Sanford MD [address] [place] [address] 51647 Assigned Gastroenterology Provider 07/18/23 Favian Mcknight MD [address] [place] [address] 28861 Dermatology 12/09/23 Favian Mcknight MD [address] [place] [address] 67476 Assigned Surgical Provider 01/29/24 documented as of this encounter
--- OUTSIDE RECORDS SUMMARY | 2024-06-14 19:46 | XMS_ITS | Encounter Summary ---
Author Organization [facility] Address [address] [place] [address] Care Team Providers Care Turbine Attendant Name Role Phone Sushant Schreiber MD Primary Care Provider [phone] No Ref-Primary, Physician Unavailable [phone] Cisco Caceres MD Unavailable [phone] Yung Rodriguez MD Unavailable Tatianna Horne [facility] Unavailable Billie Tucker RN Unavailable Unavailable Paul Sanford MD Unavailable Paul Sanford MD Unavailable [phone] Jt Waters MD Unavailable Jt Waters MD Unavailable Bhavik Segura PA-C Unavailable [phone] Paul Sanford MD Unavailable [phone] Favian Mcknight MD Unavailable [phone] Favian Mcknight MD Unavailable [phone] Encounter Details Date Type Department Care Team (Late st Contact Info) Description 01/19/2024 [facility] G[facility]enterology Clinic [place] [address] [facility] [address] [place] [address] Paul Sanford MD [address] [place] [address] Social History Tobacco Use Types Packs/Day [...] Description 06/15/2024 9:00 AM CDT Virtual Visit [facility] [address] [place] [phone] Paul Sanford MD [address] [place] [address] [phone] [facility] [address] [place] [address] 635695 documented as of this encounter Visit Diagnoses Not on filedocumented in this encounter Care Teams Turbine Attendant Relationship Specialty Start Date End Date Sushant Schreiber MD [facility] [address] [place] [address] PCP - General Family Medicine 12/02/21 No Ref-Primary, Physician 12/02/21 Cisco Caceres MD [address] [place] [address] 284 [place], [place] [phone] Fellow Gastroenterology 12/09/21 Yung Rodriguez MD [address], [address] [place] 601105 Cardiovascular Disease 12/25/21 Tatianna Horne [facility] 9 [place] [address] Pharmacist Pharmacist Pet Nutrition Specialist 02/06/22 Billie Tucker, RN Specialty Corporate Administrator Gastroenterology 12/10/22 Paul Sanford MD [address] [place] [address] Gastroenterology 12/25/22 Paul Sanford MD [address] [place] [address] 17207 Referring Physician Gastroenterology 01/14/23 Jt Waters MD [address] [place] [address] 38390 Dermatology 01/14/23 Jt Waters MD [address] [place] [address] 58775 Assigned Surgical Provider 01/17/23 01/28/24 Bhavik Segura PA-C [address] [place] [address] 52621 Physician Rheumatology Specialist Gastroenterology 04/28/23 Paul Sanford MD [address] [place] [address] 16866 Assigned Gastroenterology Provider 07/18/23 Favian Mcknight MD [address] [place] [address] 37361 Dermatology 12/09/23 Favian Mcknight MD [address] [place] [address] Assigned Surgical Provider 01/29/24 documented as of this encounter
--- OUTSIDE RECORDS SUMMARY | 2024-06-14 19:46 | XMS_ITS | Encounter Summary ---
Author Organization [facility] Address [address] [place] [address]88 Care Team Providers Care Senior Quality Control Technician Name Role Phone Sushant Schreiber MD Primary Care Provider No Ref-Primary, Physician Unavailable [phone] Cisco Caceres MD Unavailable [phone] Yung Rodriguez MD Unavailable Tatianna Horne [facility] Unavailable [phone] Billie Tucker RN Unavailable Unavailable Paul Sanford MD Unavailable [phone] Paul Sanford MD Unavailable [phone] Jt Waters MD Unavailable Jt Waters MD Unavailable Bhavik Segura PA-C Unavailable [phone] Paul Sanford MD Unavailable [phone] Favian Mcknight MD Unavailable [phone] Favian Mcknight MD Unavailable [phone] Encounter Details Date Type Department Care Team (Late st Contact Info) Description 01/09/2024 [facility] [address] [place] [address] Tatianna Horne, [address] [address] Social History Tobacco Use Types Packs/Day [...] Description 06/15/2024 9:00 AM CDT Virtual Visit [facility] [address] [place] [phone] Paul Sanford MD [address] [place] [address] [phone] [facility] [address] [place] [address] 861945 documented as of this encounter Visit Diagnoses Not on filedocumented in this encounter Care Teams Senior Quality Control Technician Relationship Specialty Start Date End Date Sushant Schreiber MD [facility] [address] [place] [address] PCP - General Family Medicine 12/02/21 No Ref-Primary, Physician 12/02/21 Cisco Caceres MD [address] [place] [address] 284 [place], [place] 678965 Fellow Gastroenterology 12/09/21 Yung Rodriguez MD [address], [address] [address] [place] 195775 Cardiovascular Disease 12/25/21 Tatianna Horne [facility] 9 [place] [address] Pharmacist Pharmacist Manual Qa Tester 02/06/22 Billie Tucker, RN Specialty Internal Consultant Gastroenterology 12/10/22 Paul Sanford MD [address] [place] [address] Gastroenterology 12/25/22 Paul Sanford MD [address] [place] [address] 32047 Referring Physician Gastroenterology 01/14/23 Jt Waters MD [address] [place] [address] 9[address]74 Dermatology 01/14/23 Jt Waters MD [address] [place] [address] 56393 Assigned Surgical Provider 01/17/23 01/28/24 Bhavik Segura PA-C [address] [place] [address] 41471 Physician Private Branch Exchange Repairer Gastroenterology 04/28/23 Paul Sanford MD [address] [place] [address] 13576 Assigned Gastroenterology Provider 07/18/23 Favian Mcknight MD [address] [place] [address] Dermatology 12/09/23 Favian Mcknight MD [address] [place] [address] 62708 Assigned Surgical Provider 01/29/24 documented as of this encounter
--- OUTSIDE RECORDS SUMMARY | 2024-06-14 19:47 | XMS_ITS | Encounter Summary ---
Author Organization [facility] Address [address] [place] [address] 46941 Care Team Providers Care Staffing Specialist Name Role Phone Sushant Schreiber MD Primary Care Provider [phone] No Ref-Primary, Physician Unavailable [phone] Cisco Caceres MD Unavailable [phone] Yung Rodriguez MD Unavailable Tatianna Horne [facility] Unavailable Billie Tucker RN Unavailable Unavailable Paul Sanford MD Unavailable Paul Sanford MD Unavailable [phone] Jt Waters MD Unavailable Jt Waters MD Unavailable Bhavik Segura PA-C Unavailable [phone] Paul Sanford MD Unavailable [phone] Favian Mcknight MD Unavailable [phone] Favian Mcknight MD Unavailable [phone] Encounter Details Date Type Department Care Team (Late st Contact Info) Description 09/15/2023 [facility] Gastroenterology Clinic [address] 4th [place] [address] Mckenzie Velázquez, JANELL Social History Tobacco Use Types Packs/Day Years Used Date Smoking Tobacco: Former Cigarettes Q uit: 05/01/2015 Smokeless Tobacco: Never Alcohol Use Standard Drinks/Week Comments Not Currently 0 (1 standard drink = 0.6 oz pur e alcohol) stop drinking 06/2020 PHQ-2 Answer Date Recorded PHQ-2 Score 2 12/09/2022 Adolescent Education Answer Date Record ed Getting School Help Needed Not on file 08/19 Sex and Gender Information Value Date Recorded Sex Assigned at Not on file Gender Identity Not on file Sexual Orientation Not on file documented as of this encounter Plan of Treatment Upcoming Encounters Date Type Department Care Team (Late st Contact Info) Description 06/15/2024 9:00 AM CDT Virtual Visit [facility] [address] [place] [address] Paul Sanford MD [address] [place] [address] 942775 [address] 566265 documented as of this encounter Visit Diagnoses Not on filedocumented in this encounter Care Teams Staffing Specialist Relationship Specialty Start Date End Date Sushant Schreiber MD [address] [address] PCP - General Family Medicine 12/02/21 No Ref-Primary, Physician 12/02/21 Cisco Caceres MD [address] [place] [address] 284 [place], [place] 919805 Fellow Gastroenterology 12/09/21 Yung Rodriguez MD [address] [address] Cardiovascular Disease 12/25/21 Tatianna Horne, [facility] 9[address] [place] [address] Pharmacist Pharmacist Product Marketing Coordinator 02/06/22 Billie Tucker, RN Specialty Piano Tuner Gastroenterology 12/10/22 Paul Sanford MD [address] [place] [address] 31152 Gastroenterology 12/25/22 Paul Sanford MD [address] [place] [address] 31403 Referring Physician Gastroenterology 01/14/23 Jt Waters MD [address] [place] [address] 904[address] Dermatology 01/14/23 Jt Waters MD [address] [place] [address] 29040 Assigned Surgical Provider 01/17/23 01/28/24 Bhavik Segura PA-C [address] [place] [address] 43551 Physician Health Administrator Gastroenterology 04/28/23 Paul Sanford MD [address] [place] [address] 89866 Assigned Gastroenterology Provider 07/18/23 Favian Mcknight MD [address] [place] [address] 81867 Dermatology 12/09/23 Favian Mcknight MD [address] [place] [address] 64711 Assigned Surgical Provider 01/29/24 documented as of this encounter
--- OUTSIDE RECORDS SUMMARY | 2024-06-14 19:47 | XMS_ITS | Encounter Summary ---
Author Organization [facility] Address [address] [place] [address] Care Team Providers Care Build Automation Engineer Name Role Phone Sushant Schreiber MD Primary Care Provider No Ref-Primary, Physician Unavailable [phone] Cisco Caceres MD Unavailable [phone] Yung Rodriguez MD Unavailable Tatianna Horne [facility] Unavailable Billie Tucker RN Unavailable Unavailable Paul Sanford MD Unavailable Paul Sanford MD Unavailable [phone] Jt Waters MD Unavailable Jt Waters MD Unavailable Bhavik Segura PA-C Unavailable [phone] Paul Sanford MD Unavailable Favian Mcknight MD Unavailable [phone] Favian Mcknight MD Unavailable [phone] Encounter Details Date Type Department Care Team (Late st Contact Info) Description 09/21/2023 [facility] Gastroenterology Clinic [address] 4th [place] [address] Isabel Patricia, RN Social History Tobacco Use Types Packs/Day [...] AM CDT Virtual Visit [facility] [address] [place] [phone] Paul Sanford MD [address] [place] [address] 883825 [address] [phone] documented as of this encounter Visit Diagnoses Not on filedocumented in this encounter Care Teams Build Automation Engineer Relationship Specialty Start Date End Date Sushant Schreiber MD [facility] & [address] [address] PCP - General Family Medicine 12/02/21 No Ref-Primary, Physician 12/02/21 Cisco Caceres MD [address] [place] [address] 284 [place], [place] 937655 Fellow Gastroenterology 12/09/21 uYng Rordiguez MD [address] [address] Cardiovascular Disease 12/25/21 Tatianna Horne, [facility] 9[address] [place] [address] Pharmacist Pharmacist Senior Solutions Architect 02/06/22 Billie Tucker, RN Specialty State Fire Marshal Gastroenterology 12/10/22 Paul Sanford MD [address] [place] [address] Gastroenterology 12/25/22 Paul Sanford MD [address] [place] [address] 51316 Referring Physician Gastroenterology 01/14/23 Jt Waters MD [address] [place] [address] 86711 Dermatology 01/14/23 Jt Waters MD [address] [place] [address] 14236 Assigned Surgical Provider 01/17/23 01/28/24 Bhavik Segura PA-C [address] [place] [address] 63058 Physician Desulfurizer Machine Gastroenterology 04/28/23 Paul Sanford MD [address] [place] [address] 95666 Assigned Gastroenterology Provider 07/18/23 Favian Mcknight MD [address] [place] [address] 93139 Dermatology 12/09/23 Favian Mcknight MD [address] [place] [address] 39839 Assigned Surgical Provider 01/29/24 documented as of this encounter
--- OUTSIDE RECORDS SUMMARY | 2024-06-14 19:47 | XMS_ITS | Encounter Summary ---
Author Organization [place] Address [address] [place] [address] 70451 Care Team Providers Care Structural Steel Engineer Name Role Phone Sushant Schreiber MD Primary Care Provider No Ref-Primary, Physician Unavailable [phone] Cisco Caceres MD Unavailable [phone] Yung Rodriguez MD Unavailable Tatianna Horne [facility] Unavailable Billie Tucker RN Unavailable Unavailable Paul Sanford MD Unavailable Paul Sanford MD Unavailable [phone] Jt Waters MD Unavailable Jt Waters MD Unavailable Bhavik Segura PA-C Unavailable [phone] Paul Sanford MD Unavailable [phone] Favian Mcknight MD Unavailable [phone] Favian Mcknight MD Unavailable [phone] Encounter Details Date Type Department Care Team (Late st Contact Info) Description 09/11/2023 [facility]ology Clinic [address] 4th [place] [address] Billie Tucker, RN Social History [...] Description 06/15/2024 9:00 AM CDT Virtual Visit [facility] 9[address] [place] [address] Paul Sanford MD [address] [place] [address] 081825 documented as of this encounter Visit Diagnoses Not on filedocumented in this encounter Care Teams Structural Steel Engineer Relationship Specialty Start Date End Date Sushant Schreiber MD [facility] [address] [place] [address] PCP - General Family Medicine 12/02/21 No Ref-Primary, Physician 12/02/21 Cisco Caceres MD [address] [place] [address] 308645 Fellow Gastroenterology 12/09/21 Yung Rodriguez MD [address] [facility] [address] [address] Cardiovascular Disease 12/25/21 [facility] 909 [place] [address] Pharmacist Pharmacist Floor Coverer Apprentice 02/06/22 Billie Tucker, RN Specialty Recovery Coach Gastroenterology 12/10/22 Paul Sanford MD [address] [place] [address] 77785 Gastroenterology 12/25/22 Paul Sanford MD [address] [place] [address] 36384 Referring Physician Gastroenterology 01/14/23 Jt Waters MD [address] [place] [address] 94714 Dermatology 01/14/23 Jt Waters MD [address] [place] [address] 38948 Assigned Surgical Provider 01/17/23 01/28/24 Bhavik Segura PA-C [address] [place] [address] 35071 Physician Guest Services Manager Gastroenterology 04/28/23 Paul Sanford MD [address] [place] [address] 50104 Assigned Gastroenterology Provider 07/18/23 Favian Mcknight MD [address] [place] [address] 32902 Dermatology 12/09/23 Favian Mcknight MD [address] [place] [address] 00219 Assigned Surgical Provider 01/29/24 documented as of this encounter
--- OUTSIDE RECORDS SUMMARY | 2024-06-14 19:47 | XMS_ITS | Encounter Summary ---
Author Organization [place] Address [address] [place] [address] 48667 Care Team Providers Care Heavy Equipment Service Manager Name Role Phone Sushant Schreiber MD Primary Care Provider [phone] No Ref-Primary, Physician Unavailable [phone] Cisco Caceres MD Unavailable [phone] Yung Rodriguez MD Unavailable Tatianna Horne [facility] Unavailable Billie Tucker RN Unavailable Unavailable Paul Sanford MD Unavailable Paul Sanford MD Unavailable [phone] Jt Waters MD Unavailable Jt Waters MD Unavailable Bhavik Segura PA-C Unavailable [phone] Paul Sanford MD Unavailable [phone] Favian Mcknight MD Unavailable [phone] Favian Mcknight MD Unavailable [phone] Encounter Details Date Type Department Care Team (Late st Contact Info) Description 09/15/2023 [facility] Gastroenterology Clinic [address] 4th [place] [address] Mckenzie Velázquez, JANELL Social History [...] Description 06/15/2024 9:00 AM CDT Virtual Visit [facility] 909 [place] [address] Paul Sanford MD [address] [place] [address] 95[address] 336225 documented as of this encounter Visit Diagnoses Not on filedocumented in this encounter Care Teams Heavy Equipment Service Manager Relationship Specialty Start Date End Date Sushant Schreiber MD [address] [address] PCP - General Family Medicine 12/02/21 No Ref-Primary, Physician 12/02/21 Cisco Caceres MD [address] [place] [address] 284 [place], [place] 126495 Fellow Gastroenterology 12/09/21 Yung Rodriguez MD [address] [address] Cardiovascular Disease 12/25/21 Tatianna Horne, [facility] 909 [place] [address] Pharmacist Pharmacist Senior Project Controls Specialist 02/06/22 Billie Tucker, RN Specialty Head Setter Gastroenterology 12/10/22 Paul aSnford MD [address] [place] [address] 54878 Gastroenterology 12/25/22 Paul Sanford MD [address] [place] [address] 51905 Referring Physician Gastroenterology 01/14/23 tJ Waters MD [address] [place] [address] 53767 Dermatology 01/14/23 Jt Waters MD [address] [place] [address] 62928 Assigned Surgical Provider 01/17/23 01/28/24 Bhavik Segura PA-C [address] [place] [address] 82091 Physician Qa Analyst Gastroenterology 04/28/23 Paul Sanford MD [address] [place] [address] 67215 Assigned Gastroenterology Provider 07/18/23 Favian Mcknight MD [address] [place] [address] 48185 Dermatology 12/09/23 Favian Mcknight MD [address] [place] [address] 18405 Assigned Surgical Provider 01/29/24 documented as of this encounter
--- OUTSIDE RECORDS SUMMARY | 2024-06-14 19:47 | XMS_ITS | Encounter Summary ---
Author Organization [place] Address [address] [place] [address] 06852 Care Team Providers Care Carbon Coating Machine Operator Name Role Phone Sushant Schreiber MD Primary Care Provider [phone] No Ref-Primary, Physician Unavailable [phone] Cisco Caceres MD Unavailable [phone] Yung Rodriguez MD Unavailable Tatianna Horne [facility] Unavailable [phone] Billie Tucker RN Unavailable Unavailable Paul Sanford MD Unavailable Paul Sanford MD Unavailable [phone] Jt Waters MD Unavailable Jt Waters MD Unavailable Bhavik Segura PA-C Unavailable [phone] Paul Sanford MD Unavailable [phone] Favian Mcknight MD Unavailable [phone] Favian Mcknight MD Unavailable [phone] Encounter Details Date Type Department Care Team (Late st Contact Info) Description 11/13/2023 [facility] Gastroenterology Clinic [address] 4th [place] [address] Mckenzie Lim, RN Social History Tobacco Use Types Packs/Day [...] Description 06/15/2024 9:00 AM CDT Virtual Visit [facility] 909 [place] [address] Paul Sanford MD [address] [place] [address] 817175 [address] 750335 documented as of this encounter Visit Diagnoses Not on filedocumented in this encounter Care Teams Carbon Coating Machine Operator Relationship Specialty Start Date End Date Sushant Schreiber MD [address] [address] PCP - General Family Medicine 12/02/21 No Ref-Primary, Physician 12/02/21 Cisco Caceres MD [address] [place] [address] 284 [place], [place] 800325 Fellow Gastroenterology 12/09/21 Yung Rodriguez MD [address] 26481 Cardiovascular Disease 12/25/21 Tatianna Horne, [facility] 909 [place] [address] Pharmacist Pharmacist Aircraft Maintenance Manager 02/06/22 Billie Tucker, RN Specialty Head School Custodian Gastroenterology 12/10/22 Paul Sanford MD [address] [place] [address] 41230 Gastroenterology 12/25/22 Paul Sanford MD [address] [place] [address] 94074 Referring Physician Gastroenterology 01/14/23 Jt Waters MD [address] [place] [address] 32230 Dermatology 01/14/23 Jt Waters MD [address] [place] [address] 61818 Assigned Surgical Provider 01/17/23 01/28/24 Bhavik Segura PA-C [address] [place] [address] 53465 Physician Senior Gamemaster Gastroenterology 04/28/23 Paul Sanford MD [address] [place] [address] 90647 Assigned Gastroenterology Provider 07/18/23 Favian Mcknight MD [address] [place] [address] 86916 Dermatology 12/09/23 Favian Mcknight MD [address] [place] [address] 99558 Assigned Surgical Provider 01/29/24 documented as of this encounter
--- OUTSIDE RECORDS SUMMARY | 2024-06-14 19:47 | XMS_ITS | Encounter Summary ---
Author Organization [place] Address [address] [place] [address] 38329 Care Team Providers Care Gang Sawyer Name Role Phone Sushant Schreiber MD Primary Care Provider [phone] No Ref-Primary, Physician Unavailable [phone] Cisco Caceres MD Unavailable [phone] Yung Rodriguez MD Unavailable Tatianna Horne [facility] Unavailable Billie Tucker RN Unavailable Unavailable Paul Sanford MD Unavailable Paul Sanford MD Unavailable [phone] Jt Waters MD Unavailable Jt Waters MD Unavailable Bhavik Segura PA-C Unavailable [phone] Paul Sanford MD Unavailable [phone] Favian Mcknight MD Unavailable [phone] Favian Mcknight MD Unavailable [phone] Encounter Details Date Type Department Care Team (Late st Contact Info) Description 11/11/2023 [facility] Gastroenterology Clinic [address] 4th [place] [address] Allison Steward Social History Tobacco Use Types Packs/Day Years [...] Description 06/15/2024 9:00 AM CDT Virtual Visit [facility] 909 [place] [address] Paul Sanford MD [address] [place] [address] 011165 [address] 231375 documented as of this encounter Visit Diagnoses Not on filedocumented in this encounter Care Teams Gang Sawyer Relationship Specialty Start Date End Date Sushant Schreiber MD [facility] [address] [place] [address] PCP - General Family Medicine 12/02/21 No Ref-Primary, Physician 12/02/21 Cisco Caceres MD [address] [place] [address] 284 [place], [place] 732715 Fellow Gastroenterology 12/09/21 Yung Rodriguez MD [address] [facility] [address] [place] [address] Cardiovascular Disease 12/25/21 [facility] 909 [place] [address] Pharmacist Pharmacist Computer Systems Hardware Analyst 02/06/22 Billie Tucker, RN Specialty Shoe Associate Gastroenterology 12/10/22 Paul Sanford MD [address] [place] [address] 23789 Gastroenterology 12/25/22 Paul Sanford MD [address] [place] [address] 52498 Referring Physician Gastroenterology 01/14/23 Jt Waters MD [address] [place] [address] 30657 Dermatology 01/14/23 Jt Waters MD [address] [place] [address] 45697 Assigned Surgical Provider 01/17/23 01/28/24 Bhavik Segura PA-C [address] [place] [address] 98639 Physician Manager City Gastroenterology 04/28/23 Paul Sanford MD [address] [place] [address] 34910 Assigned Gastroenterology Provider 07/18/23 Favian Mcknight MD [address] [place] [address] 50025 Dermatology 12/09/23 Favian Mcknight MD [address] [place] [address] 03301 Assigned Surgical Provider 01/29/24 documented as of this encounter
--- OUTSIDE RECORDS SUMMARY | 2024-06-14 19:47 | XMS_ITS | Encounter Summary ---
Author Organization [place] Address [address] [place] [address] 27476 Care Team Providers Care Paralegal Specialist Name Role Phone Sushant Schreiber MD Primary Care Provider [phone] No Ref-Primary, Physician Unavailable [phone] Cisco Caceres MD Unavailable [phone] Yung Rodriguez MD Unavailable Tatianna Horne [facility] Unavailable Tatianna Horne [facility] Unavailable [phone] Billie Tucker RN Unavailable Unavailable Paul Sanford MD Unavailable Paul Sanford MD Unavailable Jt Waters MD Unavailable Jt Waters MD Unavailable Bhavik Segura PA-C Unavailable [phone] Paul Sanford MD Unavailable Favian Mcknight MD Unavailable [phone] Favian Mcknight MD Unavailable [phone] Encounter Details Date Type Department Care Team (Late st Contact Info) Description 07/07/2023 [facility] Gastroenterology Clinic [address] 4th [place] [address] Orness, Beatriz A Social History Tobacco Use Types Packs/Day Years Used Date Smoking Tobacco: Former Cigarettes Q uit: 05/01/2015 Smokeless Tobacco: Never Alcohol Use Standard Drinks/Week Comments Not Currently 0 (1 standard drink = 0.6 oz pur e alcohol) stop drinking 06/2020 PHQ-2 Answer Date Recorded PHQ-2 Score 2 12/09/2022 Sex and Gender Information Value Date Recorded Sex Assigned at Not on file Gender Identity Not on file Sexual Orientation Not on file COVID-19 Exposure Response Date Recorded In the last 10 days, have yo u been in contact with someone who was confirmed or suspected to have Coronavirus/COVID-19? No / Unsure 07/07/2023 2:12 PM CDT documented as of this encounter Plan of Treatment Upcoming Encounters Date Type Department Care Team (Late st Contact Info) Description 06/15/2024 9:00 AM CDT Virtual Visit [facility] 909 [place] [address] Paul Sanford MD [address] [place] [address] 109865 [facility] [address] [place] [address] 278035 documented as of this encounter Visit Diagnoses Not on filedocumented in this encounter Care Teams Paralegal Specialist Relationship Specialty Start Date End Date Sushant Schreiber MD [facility] 2000 [place] [address] PCP - General Family Medicine 12/02/21 No Ref-Primary, Physician 12/02/21 Cisco Caceres MD [address] [place] [address] 284 [place], [place] 629735 Fellow Gastroenterology 12/09/21 Yung Rodriguez MD [address] [place] [address] Cardiovascular Disease 12/25/21 Tatianna Horne, [facility] [address] [place] [address] Pharmacist Pharmacist Station Mechanic Helper 02/06/22 [facility] [address] [place] [address] 88580 Assigned MTM Pharmacist 08/13/22 Billie Tucker, RN Specialty Degreaser Gastroenterology 12/10/22 Paul Sanford MD 500 [place], [place] 736175 Gastroenterology 12/25/22 Paul Sanford MD 500 [place], [place] 113205 Referring Physician Gastroenterology 01/14/23 Jt Waters MD 500 [place], [place] 401335 Dermatology 01/14/23 Jt Waters MD 500 [place] [address] Assigned Surgical Provider 01/17/23 01/28/24 Bhavik Segura PA-C 9 [place] [address] Physician Assistant Director Of Residence Life Gastroenterology 04/28/23 Paul Sanford MD [address] [place] [address] Assigned Gastroenterology Provider 07/18/23 Favian Mcknight MD [address] [place] [address] 0[address]99 MD Dermatology 12/09/23 Favian Mcknight MD [address] [place] [address] 68750 Assigned Surgical Provider 01/29/24 documented as of this encounter
--- OUTSIDE RECORDS SUMMARY | 2024-06-14 19:47 | XMS_ITS | Encounter Summary ---
Author Organization [facility] Address [address] [place] [address] 26299 Care Team Providers Care Business Support Professional Name Role Phone Sushant Schreiber MD Primary Care Provider No Ref-Primary, Physician Unavailable [phone] Cisco Caceres MD Unavailable [phone] Yung Rodriguez MD Unavailable Tatianna Horne [facility] Unavailable Billie Tucker RN Unavailable Unavailable Paul Sanford MD Unavailable Paul Sanford MD Unavailable [phone] Jt Waters MD Unavailable Jt Waters MD Unavailable Bhavik Segura PA-C Unavailable [phone] Paul Sanford MD Unavailable [phone] Favian Mcknight MD Unavailable [phone] Favian Mcknight MD Unavailable [phone] Encounter Details Date Type Department Care Team (Late st Contact Info) Description 09/16/2023 [facility] Gastroenterology Clinic [address] 4th [place] [address] Billie Tucker, RN Social History [...] AM CDT Virtual Visit [facility] 909 [place] [address] Paul Sanford MD [address] [place] [address] 864635 [address] 065315 documented as of this encounter Visit Diagnoses Not on filedocumented in this encounter Care Teams Business Support Professional Relationship Specialty Start Date End Date Sushant Schreiber MD [facility] [address] [place] [address] PCP - General Family Medicine 12/02/21 No Ref-Primary, Physician 12/02/21 Cisco Caceres MD [address] [place] [address] 380955 Fellow Gastroenterology 12/09/21 Yung Rodriguez MD [address] [facility] [address] [address] Cardiovascular Disease 12/25/21 [facility] 909 [place] [address] Pharmacist Pharmacist Filter Bed Placer 02/06/22 Billie Tucker, RN Specialty Bindery Machine Setter/Set Up Operator Gastroenterology 12/10/22 Paul Sanford MD [address] [place] [address] 13988 Gastroenterology 12/25/22 Paul Sanford MD [address] [place] [address] 08424 Referring Physician Gastroenterology 01/14/23 Jt Waters MD [address] [place] [address] 51327 Dermatology 01/14/23 Jt Waters MD [address] [place] [address] 13923 Assigned Surgical Provider 01/17/23 01/28/24 Bhavik Segura PA-C [address] [place] [address] 94069 Physician Vocational Aide Gastroenterology 04/28/23 Paul Sanford MD [address] [place] [address] 82225 Assigned Gastroenterology Provider 07/18/23 Favian Mcknight MD [address] [place] [address] 12354 Dermatology 12/09/23 Favian Mcknight MD [address] [place] [address] 84641 Assigned Surgical Provider 01/29/24 documented as of this encounter
--- OUTSIDE RECORDS SUMMARY | 2024-06-14 19:47 | XMS_ITS | Encounter Summary ---
Author Organization [place] Address [address] [place] [address] 16070 Care Team Providers Care Take Away Man Name Role Phone Sushant Schreiber MD Primary Care Provider No Ref-Primary, Physician Unavailable [phone] Cisco Caceres MD Unavailable [phone] Yung Rodriguez MD Unavailable Tatianna Horne [facility] Unavailable [phone] Billie Tucker RN Unavailable Unavailable Paul Sanford MD Unavailable Paul Sanford MD Unavailable [phone] Jt Waters MD Unavailable Jt Waters MD Unavailable Bhavik Segura PA-C Unavailable [phone] Paul Sanford MD Unavailable [phone] Favian Mcknight MD Unavailable [phone] Favian Mcknight MD Unavailable [phone] Encounter Details Date Type Department Care Team (Late st Contact Info) Description 09/21/2023 [facility] [address] 4th [place] [address] Mckenzie Lim, RN Social History [...] Virtual Visit [facility] 909 [place] [address] Paul Sanford MD [address] [place] [address] 006225 [address] 514375 documented as of this encounter Visit Diagnoses Not on filedocumented in this encounter Care Teams Take Away Man Relationship Specialty Start Date End Date Sushant Schreiber MD [address] [address] PCP - General Family Medicine 12/02/21 No Ref-Primary, Physician 12/02/21 Cisco Caceres MD [address] [place] [address] 284 [place], [place] 940515 Fellow Gastroenterology 12/09/21 Yung Rodriguez MD [address] [address] Cardiovascular Disease 12/25/21 Tatianna Horne, [facility] 909 [place] [address] Pharmacist Pharmacist Pet Handler 02/06/22 Billie Tucker, RN Specialty Tattoo Identifier Gastroenterology 12/10/22 Paul Sanford MD [address] [place] [address] 68737 Gastroenterology 12/25/22 Paul Sanford MD [address] [place] [address] 52483 Referring Physician Gastroenterology 01/14/23 Jt Waters MD [address] [place] [address] 79706 Dermatology 01/14/23 Jt Waters MD [address] [place] [address] 02571 Assigned Surgical Provider 01/17/23 01/28/24 Bhavik Segura PA-C [address] [place] [address] 85409 Physician Net Front End Developer Gastroenterology 04/28/23 Paul Sanford MD [address] [place] [address] 11259 Assigned Gastroenterology Provider 07/18/23 Favian Mcknight MD [address] [place] [address] 59442 Dermatology 12/09/23 Favian Mcknight MD [address] [place] [address] 73484 Assigned Surgical Provider 01/29/24 documented as of this encounter
--- OUTSIDE RECORDS SUMMARY | 2024-06-14 19:47 | XMS_ITS | Encounter Summary ---
Author Organization [place] Address [address] [place] [address] 21522 Care Team Providers Care Stamp Redemption Clerk Name Role Phone Sushant Schreiber MD Primary Care Provider No Ref-Primary, Physician Unavailable [phone] Cisco Caceres MD Unavailable [phone] Yung Rodriguez MD Unavailable Tatianna Horne [facility] Unavailable [phone] Billie Tucker RN Unavailable Unavailable Paul Sanford MD Unavailable Paul Sanford MD Unavailable [phone] Jt Waters MD Unavailable Jt Waters MD Unavailable Bhavik Segura PA-C Unavailable [phone] Paul Sanford MD Unavailable [phone] Favian Mcknight MD Unavailable [phone] Favian Mcknight MD Unavailable [phone] Encounter Details Date Type Department Care Team (Late st Contact Info) Description 10/30/2023 [facility] Gastroenterology Clinic [address] 4th [place] [address] Diony Drummond Social History Tobacco [...] Description 06/15/2024 9:00 AM CDT Virtual Visit [facility] 9[address] [place] [address] Paul Sanford MD [address] [place] [address] 312635 [address] 040005 documented as of this encounter Visit Diagnoses Not on filedocumented in this encounter Care Teams Stamp Redemption Clerk Relationship Specialty Start Date End Date Sushant Schreiber MD [facility] 2000 [place] [address] PCP - General Family Medicine 12/02/21 No Ref-Primary, Physician 12/02/21 Cisco Caceres MD [address] [place] [address] 284 [place], [place] 412845 Fellow Gastroenterology 12/09/21 Yung Rodriguez MD [address] [facility] [address] [place] 725555 Cardiovascular Disease 12/25/21 [facility] 909 [place] [address] Pharmacist Pharmacist Aviation Maintenance Instructor 02/06/22 Billie Tucker, RN Specialty Electric Pile Driver Operator Gastroenterology 12/10/22 Paul Sanford MD [address] [place] [address] 15018 Gastroenterology 12/25/22 Paul Sanford MD [address] [place] [address] 48674 Referring Physician Gastroenterology 01/14/23 Jt Waters MD [address] [place] [address] 53054 Dermatology 01/14/23 Jt Waters MD [address] [place] [address] 65424 Assigned Surgical Provider 01/17/23 01/28/24 Bhavik Segura PA-C [address] [place] [address] 507905 Physician Rubber Tire Curer Gastroenterology 04/28/23 Paul Sanford MD [address] [place] [address] 92348 Assigned Gastroenterology Provider 07/18/23 Favian Mcknight MD [address] [place] [address] 07905 Dermatology 12/09/23 Favian Mcknight MD [address] [place] [address] 52419 Assigned Surgical Provider 01/29/24 documented as of this encounter
--- OUTSIDE RECORDS SUMMARY | 2024-06-14 19:47 | XMS_ITS | Encounter Summary ---
Author Organization [place] Address [address] [place] [address] 43240 Care Team Providers Care Educational Programming Director Name Role Phone Sushant Schreiber MD Primary Care Provider No Ref-Primary, Physician Unavailable [phone] Cisco Caceres MD Unavailable [phone] Yung Rodriguez MD Unavailable Tatianna Horne [facility] Unavailable Billie Tucker RN Unavailable Unavailable Paul Sanford MD Unavailable [phone] Paul Sanford MD Unavailable [phone] Jt Waters MD Unavailable Jt Waters MD Unavailable Bhavik Segura PA-C Unavailable [phone] Paul Sanford MD Unavailable [phone] Favian Mcknight MD Unavailable [phone] Favian Mcknight MD Unavailable [phone] Encounter Details Date Type Department Care Team (Late st Contact Info) Description 11/11/2023 [facility] [address] 4th [place] [address] Allison Steward Social History Tobacco [...] 9:00 AM CDT Virtual Visit [facility] 909 [place] [phone] Paul Sanford MD [address] [place] [address] 265995 Tat[address] Horne[address] [id number] documented as of this encounter Visit Diagnoses Not on filedocumented in this encounter Care Teams Educational Programming Director Relationship Specialty Start Date End Date Sushant Schreiber MD [facility] 2000 [place] [address] PCP - General Family Medicine 12/02/21 No Ref-Primary, Physician 12/02/21 Cisco Caceres MD [address] [place] [address] 284 [place], [place] 722315 Fellow Gastroenterology 12/09/21 Yung Rodriguez MD [address] [facility] [address] [place] [address] Cardiovascular Disease 12/25/21 [facility] 909 [place] [address] Pharmacist Pharmacist Thermostat Maker 02/06/22 Billie Tucker, RN Specialty [place] Gastroenterology 12/10/22 Paul Sanford MD [address] [place] [address]74 Gastroenterology 12/25/22 Paul Sanford MD [address] [place] [address] 34968 Referring Physician Gastroenterology 01/14/23 Jt Waters MD [address] [place] [address] 49246 Dermatology 01/14/23 Jt Waters MD [address] [place] [address] 33762 Assigned Surgical Provider 01/17/23 01/28/24 Bhavik Segura PA-C [address] [place] [address]75 Physician Technical Programs Manager Gastroenterology 04/28/23 Paul Sanford MD [address] [place] [address] 87996 Assigned Gastroenterology Provider 07/18/23 Favian Mcknight MD [address] [place] [address] 63375 Dermatology 12/09/23 Favian Mcknight MD [address] [place] [address] 80846 Assigned Surgical Provider 01/29/24 documented as of this encounter
--- OUTSIDE RECORDS SUMMARY | 2024-06-14 19:47 | XMS_ITS | Encounter Summary ---
Author Organization [place] Address [address] [place] [address] 52465 Care Team Providers Care Neonatal Doctor Name Role Phone Sushant Schreiber MD Primary Care Provider No Ref-Primary, Physician Unavailable [phone] Cisco Caceres MD Unavailable [phone] Yung Rodriguez MD Unavailable Tatianna Horne [facility] Unavailable Tatianna Horne [facility] Unavailable [phone] Billie Tucker RN Unavailable Unavailable Paul Sanford MD Unavailable Paul Sanford MD Unavailable Jt Waters MD Unavailable Jt Waters MD Unavailable Bhavik Segura PA-C Unavailable [phone] Paul Sanford MD Unavailable [phone] Favian Mcknight MD Unavailable [phone] Favian Mcknight MD Unavailable [phone] Encounter Details Date Type Department Care Team (Late st Contact Info) Description 06/03/2023 [facility]ology Clinic [address] 4th [place] [address] Billie Tucker, RN Social History [...] was confirmed or suspected to have Coronavirus/COVID-19? Unable to assess 06/04/2023 2:42 PM CDT documented as of this encounter Plan of Treatment Upcoming Encounters Date Type Department Care Team (Late st Contact Info) Description 06/15/2024 9:00 AM CDT Virtual Visit [facility] 909 [place] [phone] Paul Sanford MD [address] [place] [address] 236645 [facility] [address] [place] [address] 362865 documented as of this encounter Visit Diagnoses Not on filedocumented in this encounter Care Teams Neonatal Doctor Relationship Specialty Start Date End Date Sushant Schreiber MD [facility] 2000 [place] [address] PCP - General Family Medicine 12/02/21 No Ref-Primary, Physician 12/02/21 Cisco Caceres MD [address] [place] [address] 284 [place], [place] 098485 Fellow Gastroenterology 12/09/21 Yung Rodriguez MD [address] [place] [address] Cardiovascular Disease 12/25/21 Tatianna Horne, [facility] 9 [place] [address] Pharmacist Pharmacist Client Service Representative 02/06/[address] [address] [facility] [address] [place] [address] 8[address] Assigned MTM Pharmacist 08/13/22 Billie Tucker, RN Specialty Bus And Sys Integration Senior Manager Gastroenterology 12/10/22 Paul Sanford MD 500 [place] [address] Gastroenterology 12/25/22 Paul Sanford MD 500 [place], [place] 655835 Referring Physician Gastroenterology 01/14/23 Jt Waters MD 500 [place], [place] 726715 Dermatology 01/14/23 Jt Waters MD 500 [place] [address] Assigned Surgical Provider 01/17/23 01/28/24 Bhavik Segura PA-C 9 [place] [address] Physician Cylinder Head Assembler Gastroenterology 04/28/23 Paul Sanford MD [address] [place] [address] 16781 Assigned Gastroenterology Provider 07/18/23 Favian Mcknight MD [address] [place] [address] MD Dermatology 12/09/23 Favian Mcknight MD [address] [place] [address] 84691 Assigned Surgical Provider 01/29/24 documented as of this encounter
--- OUTSIDE RECORDS SUMMARY | 2024-06-14 19:47 | XMS_ITS | Encounter Summary ---
Author Organization [place] Address [address] [place] [address] 56747 Care Team Providers Care Associate Curator Name Role Phone Sushant Schreiber MD Primary Care Provider No Ref-Primary, Physician Unavailable [phone] Cisco Caceres MD Unavailable [phone] Yung Rodriguez MD Unavailable Tatianna Horne [facility] Unavailable Billie Tucker RN Unavailable Unavailable Paul Sanford MD Unavailable Paul Sanford MD Unavailable [phone] Jt Waters MD Unavailable Jt Waters MD Unavailable Bhavik Segura PA-C Unavailable [phone] Paul Sanford MD Unavailable [phone] Favian Mcknight MD Unavailable [phone] Favian Mcknight MD Unavailable [phone] Encounter Details Date Type Department Care Team (Late st Contact Info) Description 11/13/2023 [facility] G[facility]ology Clinic [address] 4th [place] [address] Mckenzie Lim, RN Social History [...] Description 06/15/2024 9:00 AM CDT Virtual Visit [facility] 909 [place] [address] Paul Sanford MD [address] [place] [address] 293675 [address] 318105 documented as of this encounter Visit Diagnoses Not on filedocumented in this encounter Care Teams Associate Curator Relationship Specialty Start Date End Date Sushant Schreiber MD [address] [address] PCP - General Family Medicine 12/02/21 No Ref-Primary, Physician 12/02/21 Cisco Caceres MD [address] [place] [address] 284 [place], [place] 955965 Fellow Gastroenterology 12/09/21 Yung Rodriguez MD [address] [place] [address] Cardiovascular Disease 12/25/21 Tatianna Horne, [facility] 909 [place] [address] Pharmacist Pharmacist Outside Laborer 02/06/22 Billie Tucker, RN Specialty Lime Mixer Tender Gastroenterology 12/10/22 Paul Sanford MD [address] [place] [address] Gastroenterology 12/25/22 Paul Sanford MD [address] [place] [address]055 Referring Physician Gastroenterology 01/14/23 Jt Waters MD [address] [place] [address] 46026 Dermatology 01/14/23 Jt Waters MD [address] [place] [address] 40416 Assigned Surgical Provider 01/17/23 01/28/24 Bhavik Segura PA-C [address] [place] [address]3917 Physician Nail Making Machine Setter Gastroenterology 04/28/23 Paul Sanford MD [address] [place] [address]2008 Assigned Gastroenterology Provider 07/18/23 Favian Mcknight MD [address] [place] [address] 51029 Dermatology 12/09/23 Favian Mcknight MD [address] [place] [address] 10683 Assigned Surgical Provider 01/29/24 documented as of this encounter
--- OUTSIDE RECORDS SUMMARY | 2024-06-14 19:47 | XMS_ITS | Encounter Summary ---
Author Organization [place] Address [address] [place] [address]96 Care Team Providers Care Knockup Worker Name Role Phone Sushant Schreiber MD Primary Care Provider No Ref-Primary, Physician Unavailable [phone] Cisco Caceres MD Unavailable [phone] Yung Rodriguez MD Unavailable Tatianna Horne [facility] Unavailable Billie Tucker RN Unavailable Unavailable Paul Sanford MD Unavailable Paul Sanford MD Unavailable [phone] Jt Waters MD Unavailable Jt Waters MD Unavailable Bhavik Segura PA-C Unavailable [phone] Paul Sanford MD Unavailable [phone] Favian Mcknight MD Unavailable [phone] Favian Mcknight MD Unavailable [phone] Encounter Details Date Type Department Care Team (Late st Contact Info) Description 11/02/2023 [facility] G[facility]ology Clinic [address] 4th [place] [address] Diony Drummond Social History Tobacco [...] Visit [facility] 909 [place] [address] Paul Sanford MD [address] [place] [address] 55[address]25 [address] 318945 documented as of this encounter Visit Diagnoses Not on filedocumented in this encounter Care Teams Knockup Worker Relationship Specialty Start Date End Date Sushant Schreiber MD [facility] 2000 [place] [address] PCP - General Family Medicine 12/02/21 No Ref-Primary, Physician 12/02/21 Cisco Caceres MD [address] [place] [address] 284 [place], [place] 995155 Fellow Gastroenterology 12/09/21 Yung Rodriguez MD [address] [facility] [address] [place] 997695 Cardiovascular Disease 12/25/21 [facility] 909 [place] [address] Pharmacist Pharmacist Color Buffer 02/06/22 Billie Tucker, RN Specialty Diesel Power Mechanic Gastroenterology 12/10/22 Paul Sanford MD [address] [place] [address] 48997 Gastroenterology 12/25/22 Paul Sanford MD [address] [place] [address] 70071 Referring Physician Gastroenterology 01/14/23 Jt Waters MD [address] [place] [address] 29249 Dermatology 01/14/23 Jt Waters MD [address] [place] [address] 54694 Assigned Surgical Provider 01/17/23 01/28/24 Bhavik Segura PA-C [address] [place] [address] 331335 Physician Health Care Aide Gastroenterology 04/28/23 Paul Sanford MD [address] [place] [address] 24092 Assigned Gastroenterology Provider 07/18/23 Favian Mcknight MD [address] [place] [address] 33914 Dermatology 12/09/23 Favian Mcknight MD [address] [place] [address] 45705 Assigned Surgical Provider 01/29/24 documented as of this encounter
--- OUTSIDE RECORDS SUMMARY | 2024-06-14 19:47 | XMS_ITS | Encounter Summary ---
Author Organization [place] Address [address] [place] [address] 80744 Care Team Providers Care Criminal Intelligence Specialist Name Role Phone Sushant Schreiber MD Primary Care Provider No Ref-Primary, Physician Unavailable [phone] Cisco Caceres MD Unavailable [phone] Yung Rodriguez MD Unavailable Tatianna Horne [facility] Unavailable Billie Tucker RN Unavailable Unavailable Paul Sanford MD Unavailable Paul Sanford MD Unavailable [phone] Jt Waters MD Unavailable Jt Waters MD Unavailable Bhavik Segura PA-C Unavailable [phone] Paul Sanford MD Unavailable Favian Mcknight MD Unavailable [phone] Favian Mcknight MD Unavailable [phone] Encounter Details Date Type Department Care Team (Late st Contact Info) Description 12/16/2023 [facility] Gastroenterology Clinic [address] 4th [place] [address] Billie Tucker, RN Social History [...] Virtual Visit [facility] 909 [place] [address] Paul Sanford MD [address] [place] [address] 036845 [address] 428405 documented as of this encounter Visit Diagnoses Not on filedocumented in this encounter Care Teams Criminal Intelligence Specialist Relationship Specialty Start Date End Date Sushant Schreiber MD [facility] 2000 [place] [address] PCP - General Family Medicine 12/02/21 No Ref-Primary, Physician 12/02/21 Cisco Caceres MD [address] [place] [address] 907445 Fellow Gastroenterology 12/09/21 Yung Rodriguez MD [address] [facility] [address] [place] [address] Cardiovascular Disease 12/25/21 [facility] 909 [place] [address] Pharmacist Pharmacist Enterer 02/06/22 Billie Tucker, RN Specialty Train Control Technician Gastroenterology 12/10/22 Paul Sanford MD [address] [place] [address] 71932 Gastroenterology 12/25/22 Paul Sanford MD [address] [place] [address] 40981 Referring Physician Gastroenterology 01/14/23 Jt Waters MD [address] [place] [address] 46221 Dermatology 01/14/23 Jt Waters MD [address] [place] [address] 11442 Assigned Surgical Provider 01/17/23 01/28/24 Bhavik Segura PA-C [address] [place] [address] 95746 Physician Prep Person Gastroenterology 04/28/23 Paul Sanford MD [address] [place] [address] 41036 Assigned Gastroenterology Provider 07/18/23 Favian Mcknight MD [address] [place] [address] 67601 Dermatology 12/09/23 Favian Mcknight MD [address] [place] [address] 00668 Assigned Surgical Provider 01/29/24 documented as of this encounter
--- OUTSIDE RECORDS SUMMARY | 2024-06-14 19:47 | XMS_ITS | Encounter Summary ---
Author Organization [place] Address [address] [place] [address] Care Team Providers Care Mergers And Acquisitions Associate Name Role Phone Sushant Schreiber MD Primary Care Provider [phone] No Ref-Primary, Physician Unavailable [phone] Cisco Caceres MD Unavailable [phone] Yung Rodriguez MD Unavailable Tatianna Horne [facility] Unavailable [phone] Billie Tucker RN Unavailable Unavailable Paul Sanford MD Unavailable [phone] Paul Sanford MD Unavailable [phone] Jt Waters MD Unavailable Jt Waters MD Unavailable Bhavik Segura PA-C Unavailable [phone] Paul Sanford MD Unavailable [phone] Favian Mcknight MD Unavailable [phone] Favian Mcknight MD Unavailable [phone] Encounter Details Date Type Department Care Team (Late st Contact Info) Description 11/10/2023 [facility] Gastroenterology Clinic [address] 4th [place] [address] Diony Drummond Social History Tobacco [...] Description 06/15/2024 9:00 AM CDT Virtual Visit [facility] 909 [place] [address] Paul Sanford MD [address] [place] [address] 078775 [address] 537415 documented as of this encounter Visit Diagnoses Not on filedocumented in this encounter Care Teams Mergers And Acquisitions Associate Relationship Specialty Start Date End Date Sushant Schreiber MD [facility] 2000 [place] [address] PCP - General Family Medicine 12/02/21 No Ref-Primary, Physician 12/02/21 Cisco Caceres MD [address] [place] [address] 284 [place], [place] 965905 Fellow Gastroenterology 12/09/21 Yung Rodriguez MD [address] [facility] [address] [place] 514825 Cardiovascular Disease 12/25/21 [facility] 909 [place] [address] Pharmacist Pharmacist Educational Program Director 02/06/22 Billie Tucker, RN Specialty Director Of Creative Services Gastroenterology 12/10/22 Paul Sanford MD [address] [place] [address] 46276 Gastroenterology 12/25/22 Paul Sanford MD [address] [place] [address] 58715 Referring Physician Gastroenterology 01/14/23 Jt Waters MD [address] [place] [address] 32760 Dermatology 01/14/23 Jt Waters MD [address] [place] [address] 78391 Assigned Surgical Provider 01/17/23 01/28/24 Bhavik Segura PA-C [address] [place] [address] 416395 Physician Hedge Fund Trader Gastroenterology 04/28/23 Paul Sanford MD [address] [place] [address] 04333 Assigned Gastroenterology Provider 07/18/23 Favian Mcknight MD [address] [place] [address] 86563 Dermatology 12/09/23 Favian Mcknight MD [address] [place] [address] 90017 Assigned Surgical Provider 01/29/24 documented as of this encounter
--- OUTSIDE RECORDS SUMMARY | 2024-06-14 19:47 | XMS_ITS | Encounter Summary ---
Author Organization [place] Address [address] [place] [address]23 Care Team Providers Care Asp Net Software Developer Name Role Phone Sushant Schreiber MD Primary Care Provider [phone] No Ref-Primary, Physician Unavailable [phone] Cisco Caceres MD Unavailable [phone] Yung Rodriguez MD Unavailable Tatianna Horne [facility] Unavailable Tatianna Horne [facility] Unavailable [phone] Billie Tucker RN Unavailable Unavailable Paul Sanford MD Unavailable Paul Sanford MD Unavailable [phone] Jt Waters MD Unavailable Jt Waters MD Unavailable Bhavik Segura PA-C Unavailable [phone] Paul Sanford MD Unavailable Favian Mcknight MD Unavailable [phone] Favian Mcknight MD Unavailable [phone] Encounter Details Date Type Department Care Team (Late st Contact Info) Description 07/07/2023 [facility] Gastroenterology Clinic [address] 4th [place] [address] Orness, Beatriz A Social History [...] AM CDT Virtual Visit [facility] 909 [place] [phone] Paul Sanford MD [address] [place] [address] 103645 [facility] [address] [place] [address] 170085 documented as of this encounter Visit Diagnoses Not on filedocumented in this encounter Care Teams Asp Net Software Developer Relationship Specialty Start Date End Date Sushant Shcreiber MD [facility] 2000 [place] [address] PCP - General Family Medicine 12/02/21 No Ref-Primary, Physician 12/02/21 Cisco Caceres MD [address] [place] [address] 284 [place], [place] 003735 Fellow Gastroenterology 12/09/21 Yung Rodriguez MD [address] [place] [address] Cardiovascular Disease 12/25/21 Tatianna Horne, [facility] 9 [place] [address] Pharmacist Pharmacist Renewable Energy Technician 02/06/22 [facility] [address] [place] [address] 38973 Assigned MTM Pharmacist 08/13/22 Billie Tucker, RN Specialty Head Of Digital Gastroenterology 12/10/22 Paul Sanford MD 500 [place], [place] 711635 Gastroenterology 12/25/22 Paul Sanford MD 500 [place], [place] 453825 Referring Physician Gastroenterology 01/14/23 Jt Waters MD 500 [place], [place] 879225 Dermatology 01/14/23 Jt Waters MD 500 [place] [address] Assigned Surgical Provider 01/17/23 01/28/24 Bhavik Segura PA-C 9 [place] [address] Physician Adjunct Psychology Instructor Gastroenterology 04/28/23 Paul Sanford MD 500 [place] [address] Assigned Gastroenterology Provider 07/18/23 Favian Mcknight MD [address] [place] [address] 23587 MD Dermatology 12/09/23 Favian Mcknight MD [address] [place] [address] 47476 Assigned Surgical Provider 01/29/24 documented as of this encounter
--- OUTSIDE RECORDS SUMMARY | 2024-06-14 19:48 | XMS_ITS | Encounter Summary ---
Author Organization [place] Address [address] [place] [address] 0[address]99 Care Team Providers Care Senior Lead Software Engineer Name Role Phone Sushant Schreiber MD Primary Care Provider No Ref-Primary, Physician Unavailable [phone] Cisco Caceres MD Unavailable [phone] Sabiha Hogan APRN AIR PLANT ENGINEER Unavailable [phone] Yung Rodriguez MD Unavailable Tatianna Horne [facility] Unavailable Tatianna Horne [facility] Unavailable Billie Tucker RN Unavailable Unavailable [place] PA-C Unavailable Paul Sanford MD Unavailable Paul Sanford MD Unavailable Jt Waters MD Unavailable Jt Waters MD Unavailable Bhavik Segura PA-C Unavailable [phone] Paul Sanford MD Unavailable Favian Mcknight MD Unavailable [phone] Favian Mcknight MD Unavailable [phone] Encounter Details Date Type Department Care Team (Late st Contact Info) Description 12/22/2022 [facility] Gastroenterology Clinic [address] 4th [place] [address] Billie Tucker RN Social History Tobacco Use Types Packs/Day [...] suspected to have Coronavirus/COVID-19? No / Unsure 12/25/2022 7:56 AM WATER REUSE PROGRAM MANAGER documented as of this encounter Plan of Treatment Upcoming Encounters Date Type Department Care Team (Late st Contact Info) Description 06/15/2024 9:00 AM CDT Virtual Visit [facility] [address] [place] [address] Paul Sanford MD [address] [place] [address] 979265 [address] 713435 documented as of this encounter Visit Diagnoses Not on filedocumented in this encounter Care Teams Senior Lead Software Engineer Relationship Specialty Start Date End Date Sushant Schreiber MD [facility] 2000 [place] [address] PCP - General Family Medicine 12/02/21 No Ref-Primary, Physician 12/02/21 Cisco Caceres MD [address] [place] [address] [id number] Fellow Gastroenterology 12/09/21 Sabiha Hogan APRN AIR PLANT ENGINEER [address] [place], [place] 808065 Assigned Heart and Vascular Provider 12/15/21 02/13/23 Yung Rodriguez MD [address] [place] 910885 Cardiovascular Disease 12/25/21 [facility] [address] [place] [address] Pharmacist Pharmacist Care Information Associate 02/06/22 [facility] [address] [place] [address] 949[address] Assigned MTM Pharmacist 08/13/22 Billie Tucker, JANELL Specialty Management Development Specialist Gastroenterology 12/10/22 [place] PA-C [address] [place] [address] Physician Hotel General Manager Dermatology 12/25/22 01/13/23 Paul Sanford MD [address] [place] [address] Gastroenterology 12/25/22 Paul Sanford MD [address] [place] [address] Referring Physician Gastroenterology 01/14/23 Jt Waters MD 500 [place] [address] Dermatology 01/14/23 Jt Waters MD 500 [place] [address] Assigned Surgical Provider 01/17/23 01/28/24 Bhavik Segura PA-C [address] [place] [address]45 Physician Hotel General Manager Gastroenterology 04/28/23 Paul Sanford MD [address] [place] [address] Assigned Gastroenterology Provider 07/18/23 Favian Mcknight MD [address] [place] [address] Dermatology 12/09/23 Favian Mcknight MD 9 [place] [address] Assigned Surgical Provider 01/29/24 documented as of this encounter
--- OUTSIDE RECORDS SUMMARY | 2024-06-14 19:48 | XMS_ITS | Encounter Summary ---
Author Organization [facility] Address [address] [place] [address] 12263 Care Team Providers Care Facility Manager Histology Name Role Phone Sushant Schreiber MD Primary Care Provider No Ref-Primary, Physician Unavailable [phone] Cisco Caceres MD Unavailable [phone] Sabiha Hogan APRN CERAMIC TILE MECHANIC Unavailable [phone] Yung Rodriguez MD Unavailable Tatianna Horne [facility] Unavailable Tatianna Horne [facility] Unavailable Billie Tucker RN Unavailable Unavailable Chantale Grande PA-C Unavailable Paul Sanford MD Unavailable Paul Sanford MD Unavailable Jt Waters MD Unavailable Jt Waters MD Unavailable Bhavik Segura PA-C Unavailable [phone] Paul Sanford MD Unavailable [phone] Favian Mcknight MD Unavailable [phone] Favian Mcknight MD Unavailable [phone] Encounter Details Date Type Department Care Team (Late st Contact Info) Description 12/16/2022 [facility] Specialty MTM [address] [place] [address] Tatianna Horne, [address] [id number] Social History Tobacco Use Types Packs/Day Years [...] suspected to have Coronavirus/COVID-19? No / Unsure 12/09/2022 2:55 PM COFFEE ROASTER HELPER documented as of this encounter Plan of Treatment Upcoming Encounters Date Type Department Care Team (Late st Contact Info) Description 06/15/2024 9:00 AM CDT Virtual Visit [facility] [address] [place] [address] Paul Sanford MD [address] [place] [address] Tatian[address] [address] documented as of this encounter Visit Diagnoses Not on filedocumented in this encounter Care Teams Facility Manager Histology Relationship Specialty Start Date End Date Sushant Schreiber MD [facility] [address] [place] [address] PCP - General Family Medicine 12/02/21 No Ref-Primary, Physician 12/02/21 Cisco Caceres MD [address] [place] [address] 284 [place] [address] Fellow Gastroenterology 12/09/21 Sabiha Hogan APRN CERAMIC TILE MECHANIC [address] [facility] [place] 333275 Assigned Heart and Vascular Provider 12/15/21 02/13/23 Yung Rodriguez MD [address], [address] [place], [place] 989115 Cardiovascular Disease 12/25/21 [facility] [address] [place] [address] Pharmacist Pharmacist Shirt Folder 02/06/22 [facility] [address] [place] [address] [phone] Assigned MTM Pharmacist 08/13/22 Billie Tucker, RN Specialty Felling Machine Operator Gastroenterology 12/10/22 Chantale Grande, PA-C [address] [place] [address] Physician Goodwill Ambassador Dermatology 12/25/22 01/13/23 Paul Sanford MD [address] [place], [place] 082435 Gastroenterology 12/25/22 Paul Sanford MD [address] [place], [place] 189205 Referring Physician Gastroenterology 01/14/23 Jt Waters MD [address] [place] [address] Dermatology 01/14/23 Jt Waters MD [address] [place] [address] Assigned Surgical Provider 01/17/23 01/28/24 Bhavik Segura PA-C [address] [place] [address] 204025 Physician Goodwill Ambassador Gastroenterology 04/28/23 Paul Sanford MD [address] [place] [address] Assigned Gastroenterology Provider 07/18/23 Favian Mcknight MD [address] [place] [address] Dermatology 12/09/23 Favian Mcknight MD [address] [place] [address] Assigned Surgical Provider 01/29/24 documented as of this encounter
--- OUTSIDE RECORDS SUMMARY | 2024-06-14 19:48 | XMS_ITS | Encounter Summary ---
Author Organization [facility] Address [address] [place] [address] Care Team Providers Care Ui Engineer Name Role Phone Sushant Schreiber MD Primary Care Provider No Ref-Primary, Physician Unavailable [phone] Cisco Caceres MD Unavailable [phone] Sabiha Hogan APRN REPAIR ELECTRIC MOTOR ASSEMBLER Unavailable [phone] Yung Rodriguez MD Unavailable Tatianna Horne [facility] Unavailable Tatianna Horne [facility] Unavailable Billie Tucker RN Unavailable Unavailable [place] PA-C Unavailable Paul Sanford MD Unavailable Paul Sanford MD Unavailable Jt Waters MD Unavailable Jt Waters MD Unavailable Bhavik Segura PA-C Unavailable [phone] Paul Sanford MD Unavailable Favian Mcknight MD Unavailable [phone] Favian Mcknight MD Unavailable [phone] Encounter Details Date Type Department Care Team (Late st Contact Info) Description 01/09/2023 [facility] G[facility]enterology Clinic [address] 4th [place] [phone] Sosa Alexander Social History Tobacco Use Types Packs/Day Years [...] suspected to have Coronavirus/COVID-19? Unable to assess 01/09/2023 1:20 PM ORACLE ETL DEVELOPER documented as of this encounter Plan of Treatment Upcoming Encounters Date Type Department Care Team (Late st Contact Info) Description 06/15/2024 9:00 AM CDT [facility] [address] [place] [phone] Paul Sanford MD [address] [place] [address] 299405 [address] [address] documented as of this encounter Visit Diagnoses Not on filedocumented in this encounter Care Teams Ui Engineer Relationship Specialty Start Date End Date Sushant Schreiber MD [facility] [address] [place] [address] PCP - General Family Medicine 12/02/21 No Ref-Primary, Physician 12/02/21 Cisco Caceres MD [address] [place] [address] [id number] Fellow Gastroenterology 12/09/21 Sabiha Hogan APRN REPAIR ELECTRIC MOTOR ASSEMBLER [address] [place], [place] 267555 Assigned Heart and Vascular Provider 12/15/21 02/13/23 Yung Rodriguez MD [address] [place], [place] 232495 Cardiovascular Disease 12/25/21 [facility] [address] [place] [address] Pharmacist Pharmacist Inside Sales Consultant 02/06/22 [facility] [address] [place] [address] Assigned MTM Pharmacist 08/13/22 Billie Tucker, JANELL Specialty Military Police Officer Gastroenterology 12/10/22 Chantale Grande PA-C [address] [place], [place] 7826192 Physician Meat And Seafood Clerk Dermatology 12/25/22 01/13/23 Paul Sanford MD 500 [place] [address] Gastroenterology 12/25/22 Paul Sanford MD [address] [place] [address] Referring Physician Gastroenterology 01/14/23 Jt Waters MD 500 [place] [address] Dermatology 01/14/23 Jt Waters MD 500 [place] [address] Assigned Surgical Provider 01/17/23 01/28/24 Bhavik Segura PA-C [address] [place] [address] Physician Meat And Seafood Clerk Gastroenterology 04/28/23 Paul Sanford MD [address] [place] [address] Assigned Gastroenterology Provider 07/18/23 Favian Mcknight MD [address] [place] [address] Dermatology 12/09/23 Favian Mcknight MD [address] [place] [address] Assigned Surgical Provider 01/29/24 documented as of this encounter
--- OUTSIDE RECORDS SUMMARY | 2024-06-14 19:48 | XMS_ITS | Encounter Summary ---
Author Organization [facility] Address [address] [place] [address] Care Team Providers Care Dope Pourer Name Role Phone Sushant Schreiber MD Primary Care Provider No Ref-Primary, Physician Unavailable [phone] Cisco Caceres MD Unavailable [phone] Sabiha Hogan APRN BUSINESS PLANNING DIRECTOR Unavailable [phone] Yung Rodriguez MD Unavailable Tatianna Horne [facility] Unavailable Tatianna Horne [facility] Unavailable Billie Tucker RN Unavailable Unavailable [place] PA-C Unavailable [phone] Paul Sanford MD Unavailable Paul Sanford MD Unavailable Jt Waters MD Unavailable Jt Waters MD Unavailable Bhavik Segura PA-C Unavailable [phone] Paul Sanford MD Unavailable Favian Mcknight MD Unavailable [phone] Favian Mcknight MD Unavailable [phone] Encounter Details Date Type Department Care Team (Late st Contact Info) Description 12/16/2022 [facility] [address] [place] [address] Diony Drummond Social History Tobacco Use Types [...] Coronavirus/COVID-19? No / Unsure 12/09/2022 2:55 PM UNIVERSAL BANKER documented as of this encounter Plan of Treatment Upcoming Encounters Date Type Department Care Team (Late st Contact Info) Description 06/15/2024 9:00 AM CDT Virtual Visit [facility] [address] [place] [phone] Paul Sanford MD [address] [place] [address] 932405 [address] [address] documented as of this encounter Visit Diagnoses Not on filedocumented in this encounter Care Teams Dope Pourer Relationship Specialty Start Date End Date Sushant Schreiber MD [facility] [address] [place] [address] PCP - General Family Medicine 12/02/21 No Ref-Primary, Physician 12/02/21 Cisco Caceres MD [address] [place] [address] [id number] Fellow Gastroenterology 12/09/21 Sabiha Hogan APRN BUSINESS PLANNING DIRECTOR [address] [place], [place] 808215 Assigned Heart and Vascular Provider 12/15/21 02/13/23 Yung Rodriguez MD [address] [place], [place] 509545 Cardiovascular Disease 12/25/21 [facility] [address] [place] [address] [phone] Pharmacist Pharmacist Assistant Refinery Operator 02/06/22 [facility] [address] [place] [address] Assigned MTM Pharmacist 08/13/22 Billie Tucker, RN Specialty Sock Examiner Gastroenterology 12/10/22 Chantale Grande, PACrispinC [address] [place], [place] 6733992 Physician Log Sawyer Dermatology 12/25/22 01/13/23 Paul Sanford MD 500 [place] [address] Gastroenterology 12/25/22 Paul Sanford MD 500 [place] [address] Referring Physician Gastroenterology 01/14/23 Jt Waters MD 500 [place] [address] Dermatology 01/14/23 Jt Waters MD [address] [place] [address] Assigned Surgical Provider 01/17/23 01/28/24 Bhavik Segura PA-C [address] [place] [address] Physician Log Sawyer Gastroenterology 04/28/23 Paul Sanford MD [address] [place] [address] Assigned Gastroenterology Provider 07/18/23 Favian Mcknight MD [address] [place] [address] Dermatology 12/09/23 Favian Mcknight MD [address] [place] [address] Assigned Surgical Provider 01/29/24 documented as of this encounter
--- OUTSIDE RECORDS SUMMARY | 2024-06-14 19:48 | XMS_ITS | Encounter Summary ---
Author Organization [place] Address [address] [place] [address] 17845 Care Team Providers Care Spool Winder Name Role Phone Sushant Schreiber MD Primary Care Provider [phone] No Ref-Primary, Physician Unavailable [phone] Cisco Caceres MD Unavailable [phone] Yung Rodriguez MD Unavailable Tatianna Horne [facility] Unavailable Tatianna Horne [facility] Unavailable [phone] Billie Tucker RN Unavailable Unavailable Paul Sanford MD Unavailable Paul Sanford MD Unavailable Jt Waters MD Unavailable Jt Waters MD Unavailable Bhavik Segura PA-C Unavailable [phone] Paul Sanford MD Unavailable Favian Mcknight MD Unavailable [phone] Favian Mcknight MD Unavailable [phone] Encounter Details Date Type Department Care Team (Late st Contact Info) Description 06/01/2023 Jayme Cole [facility] [address] 4th [place] [address] Diony Drummond Social History Tobacco [...] Description 06/15/2024 9:00 AM CDT Virtual Visit [facility] [address] [place] [phone] Paul Sanford MD [address] [place] [address] 100955 [facility] [address] [place] [address] [phone] documented as of this encounter Visit Diagnoses Not on filedocumented in this encounter Care Teams Spool Winder Relationship Specialty Start Date End Date Sushant Schreiber MD [facility] [address] [place] [address] PCP - General Family Medicine 12/02/21 No Ref-Primary, Physician 12/02/21 Cisco Caceres MD [address] [place] [address] Fellow Gastroenterology 12/09/21 Yung Rodriguez MD [address] [place] [address] Cardiovascular Disease 12/25/21 Tatianna Horne, [facility] [address] [place] [address] Pharmacist Pharmacist Concrete Grinder Operator 02/06/22 [facility] [address] [place] [address] Assigned MTM Pharmacist 08/13/22 Billie Tucker, RN Specialty Luggage Maker Gastroenterology 12/10/22 Paul Sanford MD [address] [place] [address] 489125 Gastroenterology 12/25/22 Paul Sanford MD [address] [place] [address] 117725 Referring Physician Gastroenterology 01/14/23 Jt Waters MD 500 [place], [place] 811065 Dermatology 01/14/23 Jt Waters MD 500 [place] [address] Assigned Surgical Provider 01/17/23 01/28/24 Bhavik Segura PA-C 9 [place] [address] Physician Auto Former Machine Operator Gastroenterology 04/28/23 Paul Sanford MD 500 [place] [address] Assigned Gastroenterology Provider 07/18/23 Favian Mcknight MD [address] [place] [address] MD Dermatology 12/09/23 Favian Mcknight MD [address] [place] [address] Assigned Surgical Provider 01/29/24 documented as of this encounter
--- OUTSIDE RECORDS SUMMARY | 2024-06-14 19:48 | XMS_ITS | Encounter Summary ---
Author Organization [facility] Address [address] [place] [address] 269[address] Care Team Providers Care Forms Designer Name Role Phone Sushant Schreiber MD Primary Care Provider No Ref-Primary, Physician Unavailable [phone] Cisco Caceres MD Unavailable [phone] Sabiha Hogan APRN DEBRIDGING MACHINE OPERATOR Unavailable [phone] Yung Rodriguez MD Unavailable Tatianna Horne [facility] Unavailable Tatianna Horne [facility] Unavailable [phone] Billie Tucker RN Unavailable Unavailable Paul Sanford MD Unavailable Paul Sanford MD Unavailable [phone] Jt Waters MD Unavailable Jt Waters MD Unavailable Bhavik Segura PA-C Unavailable [phone] Paul Sanford MD Unavailable Favian Mcknight MD Unavailable [phone] Favian Mcknight MD Unavailable [phone] Encounter Details Date Type Department Care Team (Late st Contact Info) Description 01/20/2023 [facility] G[facility] Clinic [address] [phone] Billie Tucker RN Social History Tobacco Use [...] suspected to have Coronavirus/COVID-19? No / Unsure 01/14/2023 9:50 AM MANAGER DEMAND documented as of this encounter Plan of Treatment Upcoming Encounters Date Type Department Care Team (Late st Contact Info) Description 06/15/2024 9:00 AM CDT Virtual Visit [facility] [address] [place] [phone] Paul Sanford MD [address] [place] [address] [address] [address] documented as of this encounter Visit Diagnoses Not on filedocumented in this encounter Care Teams Forms Designer Relationship Specialty Start Date End Date Sushant Schreiber MD [facility] [address] [place] [address] PCP - General Family Medicine 12/02/21 No Ref-Primary, Physician 12/02/21 Cisco Caceres MD [address] [place] [address] 284 [place] [address] Fellow Gastroenterology 12/09/21 Sabiha Hogan APRN DEBRIDGING MACHINE OPERATOR [address] [place] 391365 Assigned Heart and Vascular Provider 12/15/21 02/13/23 Yung Rodriguez MD [address] [place] [address] Cardiovascular Disease 12/25/21 [facility] [address] [place] [address] Pharmacist Pharmacist Mannequin Decorator 02/06/22 [facility] [address] [place], [place] 818425 Assigned MTM Pharmacist 08/13/22 Billie Tucker, RN Specialty Eap Consultant Gastroenterology 12/10/22 Paul Sanford MD 500 [place] [address] Gastroenterology 12/25/22 Paul Sanford MD [address] [place] [address] Referring Physician Gastroenterology 01/14/23 Jt Waters MD 500 [place] [address] Dermatology 01/14/23 Jt Waters MD [address] [place] [address] Assigned Surgical Provider 01/17/23 01/28/24 Bhavik Segura PA-C [address] [place] [address] [id number] Physician Railroad Detective Gastroenterology 04/28/23 Paul Sanford MD [address] [place] [address] 046585 Assigned Gastroenterology Provider 07/18/23 Favian Mcknight MD [address] [place] [address] 249725 Dermatology 12/09/23 Favian Mcknight MD [address] [place] [address] 956935 Assigned Surgical Provider 01/29/24 documented as of this encounter
--- OUTSIDE RECORDS SUMMARY | 2024-06-14 19:48 | XMS_ITS | Encounter Summary ---
Author Organization [place] Address [address] [place] [address] Care Team Providers Care Wedding Florist Name Role Phone Sushant Schreiber MD Primary Care Provider No Ref-Primary, Physician Unavailable [phone] Cisco Caceres MD Unavailable [phone] Sabiha Hogan APRN JAVA INTEGRATION DEVELOPER Unavailable [phone] Yung Rodriguez MD Unavailable Tatianna Horne [facility] Unavailable Tatianna Horne [facility] Unavailable Billie Tucker RN Unavailable Unavailable [place] PA-C Unavailable Paul Sanford MD Unavailable [phone] Paul Sanford MD Unavailable Jt Waters MD Unavailable Jt Waters MD Unavailable Bhavik Segura PA-C Unavailable [phone] Paul Sanford MD Unavailable [phone] Favian Mcknight MD Unavailable [phone] Favian Mcknight MD Unavailable [phone] Encounter Details Date Type Department Care Team (Late st Contact Info) Description 12/10/2022 [facility] [address] 4th [place] [phone] Hoda Diony Social History Tobacco Use Types Packs/Day Years [...] Coronavirus/COVID-19? No / Unsure 12/09/2022 2:55 PM RECREATION ACTIVITIES COORDINATOR documented as of this encounter Plan of Treatment Upcoming Encounters Date Type Department Care Team (Late st Contact Info) Description 06/15/2024 9:00 AM CDT Virtual Visit [facility] [address] [place] [phone] Paul Sanford MD [address] [place] [address] 154775 [address] 410345 documented as of this encounter Visit Diagnoses Not on filedocumented in this encounter Care Teams Wedding Florist Relationship Specialty Start Date End Date Sushant Schreiber MD [facility] [address] [place] [address] PCP - General Family Medicine 12/02/21 No Ref-Primary, Physician 12/02/21 Cisco Caceres MD [address] [place] [address] Fellow Gastroenterology 12/09/21 Sabiha Hogan APRN JAVA INTEGRATION DEVELOPER [address] [place], [place] 217465 Assigned Heart and Vascular Provider 12/15/21 02/13/23 Yung Rodriguez MD [address] [place] 217025 Cardiovascular Disease 12/25/21 [facility] [address] [place] [address] [address] [address] Bailiff 02/06/22 [facility] [address] [place] [address] Assigned MTM Pharmacist 08/13/22 Billie Tucker, JANELL Specialty Archaeology Professor Gastroenterology 12/10/22 Chantale Grande PA-C [address] [place] [address] Physician Preparole Counseling Aide Dermatology 12/25/22 01/13/23 Paul Sanford MD 500 [place] [address] Gastroenterology 12/25/22 Paul Sanford MD [address] [place] [address] Referring Physician Gastroenterology 01/14/23 Jt Waters MD 500 [place] [address] Dermatology 01/14/23 Jt Waters MD 500 [place] [address] Assigned Surgical Provider 01/17/23 01/28/24 Bhavik Segura PA-C [address] [place] [address] Physician Preparole Counseling Aide Gastroenterology 04/28/23 Paul Sanford MD [address] [place] [address] Assigned Gastroenterology Provider 07/18/23 Favian Mcknight MD [address] [place] [address] Dermatology 12/09/23 Favian Mcknight MD [address] [place] [address] Assigned Surgical Provider 01/29/24 documented as of this encounter
--- OUTSIDE RECORDS SUMMARY | 2024-06-14 19:48 | XMS_ITS | Encounter Summary ---
Author Organization [place] Address [address] [place] [address] Care Team Providers Care Hearing Screener Name Role Phone Sushant Schreiber MD Primary Care Provider [phone] No Ref-Primary, Physician Unavailable [phone] Cisco Caceres MD Unavailable [phone] Sabiha Hogan APRN PARALEGAL SPECIALIST Unavailable [phone] Yung Rodriguez MD Unavailable Tatianna Horne [facility] Unavailable Tatianna Horne [facility] Unavailable [phone] Billie Tucker RN Unavailable Unavailable Paul Sanford MD Unavailable Paul Sanford MD Unavailable Jt Waters MD Unavailable Jt Waters MD Unavailable Bhavik Segura PA-C Unavailable [phone] Paul Sanford MD Unavailable Favian Mcknight MD Unavailable [phone] Favian Mcknight MD Unavailable [phone] Encounter Details Date Type Department Care Team (Late st Contact Info) Description 01/28/2023 [facility] G[facility] Clinic [address] [phone] Cisco Caceres MD [address] 740285 Social History Tobacco Use Types Packs/Day Years [...] Coronavirus/COVID-19? No / Unsure 01/14/2023 9:50 AM RELATIONSHIP ASSOCIATE documented as of this encounter Plan of Treatment Upcoming Encounters Date Type Department Care Team (Late st Contact Info) Description 06/15/2024 9:00 AM CDT Virtual Visit [facility] [address] [place] [phone] Paul Sanford MD [address] [place] [address] 684525 [address] [address] documented as of this encounter Visit Diagnoses Not on filedocumented in this encounter Care Teams Hearing Screener Relationship Specialty Start Date End Date Sushant Schreiber MD [facility] [address] [address] PCP - General Family Medicine 12/02/21 No Ref-Primary, Physician 12/02/21 Cisco Caceres MD [address] [place] [address] Fellow Gastroenterology 12/09/21 Sabiha Hogan APRN PARALEGAL SPECIALIST [address] [place] [address] Assigned Heart and Vascular Provider 12/15/21 02/13/23 Yung Rodriguez MD [address] [place] [address] Cardiovascular Disease 12/25/21 [facility] [address] [place] [address] Pharmacist Pharmacist Bankruptcy Processor 02/06/22 [facility] [address] [place] [address] Assigned MTM Pharmacist 08/13/22 Billie Tucker, RN Specialty Nurses Supervisor Gastroenterology 12/10/22 Paul Sanford MD [address] [place] [address] Gastroenterology 12/25/22 Paul Sanford MD [address] [place] [address] Referring Physician Gastroenterology 01/14/23 Jt Waters MD 500 [place] [address] Dermatology 01/14/23 Jt Waters MD [address] [place] [address] Assigned Surgical Provider 01/17/23 01/28/24 Bhavik Segura PA-C 9 [place] [address] Physician Regulatory Coordinator Gastroenterology 04/28/23 Paul Sanford MD 500 [place] [address] Assigned Gastroenterology Provider 07/18/23 Favian Mcknight MD 9 [place] [address] Dermatology 12/09/23 Favian Mcknight MD [address] [place] [address] Assigned Surgical Provider 01/29/24 documented as of this encounter
--- OUTSIDE RECORDS SUMMARY | 2024-06-14 19:48 | XMS_ITS | Encounter Summary ---
Author Organization [facility] Address [address] [place] [address] Care Team Providers Care Manager Pharmaceutical Name Role Phone Sushant Schreiber MD Primary Care Provider No Ref-Primary, Physician Unavailable [phone] Cisco Caceres MD Unavailable [phone] Yung Rodriguez MD Unavailable Tatianna Horne [facility] Unavailable Tatianna Horne [facility] Unavailable [phone] Billie Tucker RN Unavailable Unavailable Paul Sanford MD Unavailable Paul Sanford MD Unavailable [phone] Jt Waters MD Unavailable Jt Waters MD Unavailable Bhavik Segura PA-C Unavailable [phone] Paul Sanford MD Unavailable Favian Mcknight MD Unavailable [phone] Favian Mcknight MD Unavailable [phone] Encounter Details Date Type Department Care Team (Late st Contact Info) Description 03/16/2023 MyC Medical Advice [facility] OR [address] 5th [place] [address] Chantell Madera, RN Social History Tobacco Use Types Packs/Day [...] Description 06/15/2024 9:00 AM CDT Virtual Visit [facility] [address] [place] [phone] Paul Sanford MD [address] [place] [address] 180715 [address] [phone] documented as of this encounter Visit Diagnoses Not on filedocumented in this encounter Care Teams Manager Pharmaceutical Relationship Specialty Start Date End Date Sushant Schreiber MD [address] [address] PCP - General Family Medicine 12/02/21 No Ref-Primary, Physician 12/02/21 Cisco Caceres MD [address] [place] [address] 284 [place], [place] 663765 Fellow Gastroenterology 12/09/21 Yung Rodriguez MD [address] [place] [address] Cardiovascular Disease 12/25/21 [facility] 9[address] [place] [address] Pharmacist Pharmacist Armored Transport Service Manager 02/06/22 [facility] [address] [place] [address] Assigned MTM Pharmacist 08/13/22 Billie Tucker, RN Specialty Water Control Station Engineer Gastroenterology 12/10/22 Paul Sanford MD 500 [place] [address] MD Gastroenterology 12/25/22 Paul Sanford MD 500 [place] [address] Referring Physician Gastroenterology 01/14/23 Jt Waters MD 500 [place] [address] MD Dermatology 01/14/23 Jt Waters MD 500 [place] [address] Assigned Surgical Provider 01/17/23 01/28/24 Bhavik Segura PA-C [address] [place] [address] Physician Taxicab Starter Gastroenterology 04/28/23 Paul Sanford MD 500 [place] [address] Assigned Gastroenterology Provider 07/18/23 Favian Mcknight MD [address] [place] [address] Dermatology 12/09/23 Favian Mcknight MD 9[address] [place] [address] Assigned Surgical Provider 01/29/24 documented as of this encounter
--- OUTSIDE RECORDS SUMMARY | 2024-06-14 19:48 | XMS_ITS | Encounter Summary ---
Author Organization [facility] Address [address] [place] [address] Care Team Providers Care Section Hand Helper Name Role Phone Sushant Schreiber MD Primary Care Provider [phone] No Ref-Primary, Physician Unavailable [phone] Cisco Caceres MD Unavailable [phone] Sabiha Hogan APRN RESEARCH & INSIGHTS EXECUTIVE Unavailable [phone] Yung Rodriguez MD Unavailable Tatianna Horne [facility] Unavailable Tatianna Horne [facility] Unavailable Billie Tucker RN Unavailable Unavailable [place] PA-C Unavailable [phone] Paul Sanford MD Unavailable Paul Sanford MD Unavailable Jt Waters MD Unavailable Jt Waters MD Unavailable Bhavik Segura PA-C Unavailable [phone] Paul Sanford MD Unavailable Favian Mcknight MD Unavailable [phone] Favian Mcknight MD Unavailable [phone] Encounter Details Date Type Department Care Team (Late st Contact Info) Description 01/09/2023 MyC Medical [facility] [address] 4th [place] [phone] Sosa Alexander Social History Tobacco Use Types [...] Coronavirus/COVID-19? Unable to assess 01/09/2023 1:20 PM BOILER COVERER HELPER documented as of this encounter Plan of Treatment Upcoming Encounters Date Type Department Care Team (Late st Contact Info) Description 06/15/2024 9:00 AM CDT Virtual Visit [facility] [address] [place] [phone] Paul Sanford MD [address] [place] [address] [address] documented as of this encounter Visit Diagnoses Not on filedocumented in this encounter Care Teams Section Hand Helper Relationship Specialty Start Date End Date Sushant Schreiber MD [facility] [address] [place] [address] PCP - General Family Medicine 12/02/21 No Ref-Primary, Physician 12/02/21 Cisco Caceres MD [address] [place] [address] [id number] Fellow Gastroenterology 12/09/21 Sabiha Hogan APRN RESEARCH & INSIGHTS EXECUTIVE [address] [place], [place] 678875 Assigned Heart and Vascular Provider 12/15/21 02/13/23 Yung Rodriguez MD [address] [place], [place] 405405 Cardiovascular Disease 12/25/21 [facility] [address] [place] [address] Pharmacist Pharmacist Room Service Waiter 02/06/22 [facility] [address] [place] [address] Assigned MTM Pharmacist 08/13/22 Billie Tucker, JANELL Specialty Solar Business Developer Gastroenterology 12/10/22 [place] PA-C [address] [place], [place] 8461792 Physician Nursery Manager Dermatology 12/25/22 01/13/23 Paul Sanford MD 500 [place] [address] Gastroenterology 12/25/22 Paul Sanford MD [address] [place] [address] Referring Physician Gastroenterology 01/14/23 Jt Waters MD 500 [place] [address] Dermatology 01/14/23 Jt Waters MD [address] [place] [address] Assigned Surgical Provider 01/17/23 01/28/24 Bhavik Segura PA-C [address] [place] [address] Physician Nursery Manager Gastroenterology 04/28/23 Paul Sanford MD [address] [place] [address] Assigned Gastroenterology Provider 07/18/23 Favian Mcknight MD [address] [place] [address] Dermatology 12/09/23 Favian Mcknight MD [address] [place] [address] Assigned Surgical Provider 01/29/24 documented as of this encounter
--- OUTSIDE RECORDS SUMMARY | 2024-06-14 19:48 | XMS_ITS | Encounter Summary ---
Author Organization [facility] Address [address] [place] [address] Care Team Providers Care Bobbin Painter Name Role Phone Sushant Schreiber MD Primary Care Provider [phone] No Ref-Primary, Physician Unavailable [phone] Cisco Caceres MD Unavailable [phone] Yung Rodriguez MD Unavailable Tatianna Horne [facility] Unavailable [phone] Tatianna Horne [facility] Unavailable [phone] Billie Tucker RN Unavailable Unavailable Paul Sanford MD Unavailable Paul Sanford MD Unavailable Jt Waters MD Unavailable Jt Waters MD Unavailable Bhavik Segura PA-C Unavailable [phone] Paul Sanford MD Unavailable Favian Mcknight MD Unavailable [phone] Favian Mcknight MD Unavailable [phone] Encounter Details Date Type Department Care Team (Late st Contact Info) Description 05/22/2023 [facility] [address] 4th [place] [address] Billie Tucker, RN Social History [...] Description 06/15/2024 9:00 AM CDT Virtual Visit [facility] [address] [place] [phone] Paul Sanford MD [address] [place] [address]275 [address] 600245 documented as of this encounter Visit Diagnoses Not on filedocumented in this encounter Care Teams Bobbin Painter Relationship Specialty Start Date End Date Sushant Schreiber MD [address] [address] PCP - General Family Medicine 12/02/21 No Ref-Primary, Physician 12/02/21 Cisco Caceres MD [address] [place] [address] 284 [place], [place] 275095 Fellow Gastroenterology 12/09/21 Yung Rodriguez MD [address] [place] [address] Cardiovascular Disease 12/25/21 Tatianna Horne, [facility] 909 [place] [address] Pharmacist Pharmacist Transportation Consultant 02/06/22 [facility] 9[address] [place] [address] Assigned MTM Pharmacist 08/13/22 Billie Tucker, RN Specialty Sports Marketing Coordinator Gastroenterology 12/10/22 Paul Sanford MD 500 [place] [address] MD Gastroenterology 12/25/22 Paul Sanford MD 500 [place] [address] Referring Physician Gastroenterology 01/14/23 Jt Waters MD 500 [place] [address] MD Dermatology 01/14/23 Jt Waters MD 500 [place] [address] Assigned Surgical Provider 01/17/23 01/28/24 Bhavik Segura PA-C [address] [place] [address] 749445 Physician Camouflage Assembler Gastroenterology 04/28/23 Paul Sanford MD [address] [place] [address] Assigned Gastroenterology Provider 07/18/23 Favian Mcknight MD 909 [place] [address] Dermatology 12/09/23 Favian Mcknight MD [address] [place] [address] Assigned Surgical Provider 01/29/24 documented as of this encounter
--- OUTSIDE RECORDS SUMMARY | 2024-06-14 19:48 | XMS_ITS | Encounter Summary ---
Author Organization [facility] Address [address] [place] [address] Care Team Providers Care Nuclear Medicine Pet Ct Technologist Name Role Phone Sushant Schreiber MD Primary Care Provider No Ref-Primary, Physician Unavailable [phone] Cisco Caceres MD Unavailable [phone] Sabiha Hogan APRN MANAGER OPERATIONS AND PROCUREMENT Unavailable [phone] Yung Rodriguez MD Unavailable Tatianna Horne [facility] Unavailable Tatianna Horne [facility] Unavailable Billie Tucker RN Unavailable Unavailable [place] PA-C Unavailable [phone] Paul Sanford MD Unavailable Paul Sanford MD Unavailable Jt Waters MD Unavailable Jt Waters MD Unavailable Bhavik Segura PA-C Unavailable [phone] Paul Sanford MD Unavailable Favian Mcknight MD Unavailable [phone] Favian Mcknight MD Unavailable [phone] Encounter Details Date Type Department Care Team (Late st Contact Info) Description 12/25/2022 [facility] Medical Advice [facility] [address] [place] [phone] Isabelle Morgan Social History Tobacco Use Types Packs/Day Years [...] Coronavirus/COVID-19? No / Unsure 12/25/2022 7:56 AM SPRINKLER DRIVER documented as of this encounter Plan of Treatment Upcoming Encounters Date Type Department Care Team (Late st Contact Info) Description 06/15/2024 9:00 AM CDT Virtual Visit [facility] [address] [place] [phone] Paul Sanford MD [address] [place] [address] 652435 [address] [address] documented as of this encounter Visit Diagnoses Not on filedocumented in this encounter Care Teams Nuclear Medicine Pet Ct Technologist Relationship Specialty Start Date End Date Sushant Schreiber MD [facility] [address] [place] [address] PCP - General Family Medicine 12/02/21 No Ref-Primary, Physician 12/02/21 Cisco Caceres MD [address] [place] [address] 284 [place] [address] Fellow Gastroenterology 12/09/21 Sabiha Hogan APRN MANAGER OPERATIONS AND PROCUREMENT [address] [place], [place] 461825 Assigned Heart and Vascular Provider 12/15/21 02/13/23 Yung Rodriguez MD [address] [place], [place] 548[address] Cardiovascular Disease 12/25/21 [facility] [address] [place] [address] 262505 Pharmacist Pharmacist Tie Carrier 02/06/22 [facility] [address] [place] [address] Assigned MTM Pharmacist 08/13/22 Billie Tucker, RN Specialty Packing Clerk Gastroenterology 12/10/22 [place], PACrispinC [address] [place] [address] Physician Coastal And Estuary Specialist Dermatology 12/25/22 01/13/23 Paul Sanford MD 500 [place] [address] Gastroenterology 12/25/22 Paul Sanford MD 500 [place] [address] Referring Physician Gastroenterology 01/14/23 Jt Waters MD 500 [place] [address] Dermatology 01/14/23 Jt Waters MD [address] [place] [address] Assigned Surgical Provider 01/17/23 01/28/24 Bhavik Segura PACrispinC [address] [place] [address] Physician Coastal And Estuary Specialist Gastroenterology 04/28/23 Paul Sanford MD [address] [place] [address] Assigned Gastroenterology Provider 07/18/23 Favian Mcknight MD [address] [place] [address] Dermatology 12/09/23 Favian Mcknight MD [address] [place] [address] Assigned Surgical Provider 01/29/24 documented as of this encounter
--- OUTSIDE RECORDS SUMMARY | 2024-06-14 19:48 | XMS_ITS | Encounter Summary ---
Author Organization [facility] Address [address] [place] [address] Care Team Providers Care Gallery Assistant Name Role Phone Sushant Schreiber MD Primary Care Provider No Ref-Primary, Physician Unavailable [phone] Cisco Caceres MD Unavailable [phone] Sabiha Hogan APRN CENTER SALES AND SERVICE ASSOCIATE Unavailable [phone] Yung Rodriguez MD Unavailable Tatianna Horne [facility] Unavailable Tatianna Horne [facility] Unavailable Billie Tucker RN Unavailable Unavailable [place] PA-C Unavailable Paul Sanford MD Unavailable [phone] Paul Sanford MD Unavailable Jt Waters MD Unavailable Jt Waters MD Unavailable Bhavik Segura PA-C Unavailable [phone] Paul Sanford MD Unavailable Favian Mcknight MD Unavailable [phone] Favian Mcknight MD Unavailable [phone] Encounter Details Date Type Department Care Team (Late st Contact Info) Description 11/25/2022 MyC Medical [facility] Gastroenterology Clinic [address] 4th [place] [phone] Cisco Caceres MD [address] [place] [address] Social History Tobacco Use Types Packs/Day Years Used Date Smoking Tobacco: Former Cigarettes Q uit: 05/01/2015 Smokeless Tobacco: Never Alcohol Use Standard Drinks/Week Comments Not Currently 0 (1 standard drink = 0.6 oz pur e alcohol) stop drinking 06/2020 PHQ-2 Answer Date Recorded PHQ-2 Score 2 04/01/2022 Sex and Gender Information Value Date Recorded Sex Assigned at Not on file Gender Identity Not on file Sexual Orientation Not on file documented as of this encounter Plan of Treatment Upcoming Encounters Date Type Department Care Team (Late st Contact Info) Description 06/15/2024 9:00 AM CDT Virtual Visit [facility] [address] [place] [phone] Paul Sanford MD [address] [place] [address] [address] [address] documented as of this encounter Visit Diagnoses Not on filedocumented in this encounter Care Teams Gallery Assistant Relationship Specialty Start Date End Date Sushant Schreiber MD [facility] [address] [place] [address] PCP - General Family Medicine 12/02/21 No Ref-Primary, Physician 12/02/21 Cisco Caceres MD [address] [place] [address] Fellow Gastroenterology 12/09/21 Sabiha Hogan APRN CENTER SALES AND SERVICE ASSOCIATE [address] [place], [place] 955745 Assigned Heart and Vascular Provider 12/15/21 02/13/23 Yung Rodriguez MD [address] [place], [place] 612465 Cardiovascular Disease 12/25/21 [facility] [address] [place] [address] 115005 Pharmacist Pharmacist Six Sigma Black Trainer 02/06/22 [facility] [address] [place] [address] Assigned MTM Pharmacist 08/13/22 Billie Tucker, RN Specialty Cyber Instructor Gastroenterology 12/10/22 [place], PACrispinC [address] [place] [address] Physician Engineer Specialist Dermatology 12/25/22 01/13/23 Paul Sanford MD 500 [place] [address] Gastroenterology 12/25/22 Paul Sanford MD 500 [place] [address] Referring Physician Gastroenterology 01/14/23 Jt Waters MD 500 [place] [address] Dermatology 01/14/23 Jt Waters MD [address] [place] [address] Assigned Surgical Provider 01/17/23 01/28/24 Bhavik Segura PA-C [address] [place] [address] Physician Engineer Specialist Gastroenterology 04/28/23 Paul Sanford MD [address] [place] [address] Assigned Gastroenterology Provider 07/18/23 Favian Mcknight MD [address] [place] [address] Dermatology 12/09/23 Favian Mcknight MD [address] [place] [address] Assigned Surgical Provider 01/29/24 documented as of this encounter
--- OUTSIDE RECORDS SUMMARY | 2024-06-14 19:48 | XMS_ITS | Encounter Summary ---
Author Organization [facility] Address [address] [place] [address] Care Team Providers Care Coper Hand Name Role Phone Sushant Schreiber MD Primary Care Provider [phone] No Ref-Primary, Physician Unavailable [phone] Cisco Caceres MD Unavailable [phone] Yung Rodriguez MD Unavailable Tatianna Horne [facility] Unavailable Tatianna Horne [facility] Unavailable [phone] Billie Tucker RN Unavailable Unavailable Paul Sanford MD Unavailable Paul Sanford MD Unavailable [phone] Jt Waters MD Unavailable Jt Waters MD Unavailable Bhavik Segura PA-C Unavailable [phone] Paul Sanford MD Unavailable [phone] Favian Mcknight MD Unavailable [phone] Favian Mcknight MD Unavailable [phone] Encounter Details Date Type Department Care Team (Late st Contact Info) Description 03/23/2023 [facility] Clinic [address] 4th [place] [address] Diony Drummond Social History Tobacco [...] Description 06/15/2024 9:00 AM CDT Virtual Visit [facility] [address] [place] [phone] Paul Sanford MD [address] [place] [address]6725 [address] 174875 documented as of this encounter Visit Diagnoses Not on filedocumented in this encounter Care Teams Coper Hand Relationship Specialty Start Date End Date Sushant Schreiber MD [facility] [address] [address] PCP - General Family Medicine 12/02/21 No Ref-Primary, Physician 12/02/21 Cisco Caceres MD [address] [place] [address] 284 [place], [place] 005935 Fellow Gastroenterology 12/09/21 Yung Rodriguez MD [address] [place] [address] Cardiovascular Disease 12/25/21 [facility] [address] [place] [address] Pharmacist Pharmacist Decorative Greens Cutter 02/06/22 [facility] [address] [place] [address] Assigned MTM Pharmacist 08/13/22 Billie Tucker, RN Specialty Soldering Machine Setter Gastroenterology 12/10/22 Paul Sanford MD 500 [place] [address] MD Gastroenterology 12/25/22 Paul Sanford MD 500 [place] [address] Referring Physician Gastroenterology 01/14/23 Jt Waters MD 500 [place] [address] MD Dermatology 01/14/23 Jt Waters MD [address] [place] [address] Assigned Surgical Provider 01/17/23 01/28/24 Bhavik Segura PA-C [address] [place] [address] Physician Anode Adjuster Gastroenterology 04/28/23 Paul Sanford MD 500 [place] [address] Assigned Gastroenterology Provider 07/18/23 Favian Mcknight MD [address] [place] [address] Dermatology 12/09/23 Favian Mcknight MD [address] [place] [address] Assigned Surgical Provider 01/29/24 documented as of this encounter
--- OUTSIDE RECORDS SUMMARY | 2024-06-14 19:48 | XMS_ITS | Encounter Summary ---
Author Organization [facility] Address [address] [place] [address] Care Team Providers Care Cement Block Maker Name Role Phone Sushant Schreiber MD Primary Care Provider [phone] No Ref-Primary, Physician Unavailable [phone] Cisco Caceres MD Unavailable [phone] Yung Rodriguez MD Unavailable Tatianna Horne [facility] Unavailable Tatianna Horne [facility] Unavailable [phone] Billie Tucker RN Unavailable Unavailable Paul Sanford MD Unavailable Paul Sanford MD Unavailable Jt Waters MD Unavailable Jt Waters MD Unavailable Bhavik Segura PA-C Unavailable [phone] Paul Sanford MD Unavailable Favian Mcknight MD Unavailable [phone] Favian Mcknight MD Unavailable [phone] Encounter Details Date Type Department Care Team (Late st Contact Info) Description 03/19/2023 MyC Medical Advice [facility] OR [address] 5th [place] [address] Dari Wiley, JANELL Social History Tobacco Use Types Packs/Day [...] AM CDT Virtual Visit [facility] [address] [place] [phone] Paul Sanford MD [address] [place] [address] 562545 [address] 185385 documented as of this encounter Visit Diagnoses Not on filedocumented in this encounter Care Teams Cement Block Maker Relationship Specialty Start Date End Date Sushant Schreiber MD [address] [address] PCP - General Family Medicine 12/02/21 No Ref-Primary, Physician 12/02/21 Cisco Caceres MD [address] [place] [address] 284 [place], [place] 948965 Fellow Gastroenterology 12/09/21 Yung Rodriguez MD [address] [place] [address] Cardiovascular Disease 12/25/21 [facility] 9[address] [place] [address] Pharmacist Pharmacist Garbage Pick Up Worker 02/06/22 [facility] [address] [place] [address] Assigned MTM Pharmacist 08/13/22 Billie Tucker, RN Specialty Peg Driver Gastroenterology 12/10/22 Paul Sanford MD 500 [place], [place] 086[address] MD Gastroenterology 12/25/22 Paul Sanford MD [address] [place], [place] 687315 Referring Physician Gastroenterology 01/14/23 Jt Waters MD 500 [place], [place] 844025 Dermatology 01/14/23 Jt Waters MD [address] [place] [address] Assigned Surgical Provider 01/17/23 01/28/24 Bhavik Segura PA-C [address] [place], [place] 985225 Physician Dope And Fabric Worker Gastroenterology 04/28/23 Paul Sanford MD [address] [place] [address] Assigned Gastroenterology Provider 07/18/23 Favian Mcknight MD [address] [place] [address] Dermatology 12/09/23 Favian Mcknight MD [address] [place] [address] Assigned Surgical Provider 01/29/24 documented as of this encounter
--- OUTSIDE RECORDS SUMMARY | 2024-06-14 19:49 | XMS_ITS | Encounter Summary ---
Author Organization [place] Address [address] [place] [address] 38887 Care Team Providers Care Audio Visual Engineer Name Role Phone Sushant Schreiber MD Primary Care Provider No Ref-Primary, Physician Unavailable [phone] Cisco Caceres MD Unavailable [phone] Sabiha Hogan APRN ORE CHARGER Unavailable [phone] Yung Rodriguez MD Unavailable Tatianna Horne [facility] Unavailable Tatianna Horne [facility] Unavailable Billie Tucker RN Unavailable Unavailable Chantale Grande PA-C Unavailable Paul Sanford MD Unavailable [phone] Paul Sanford MD Unavailable [phone] Jt Waters MD Unavailable Jt Waters MD Unavailable Bhavik Segura PA-C Unavailable [phone] Paul Sanford MD Unavailable [phone] Favian Mcknight MD Unavailable [phone] Favian Mcknight MD Unavailable [phone] Encounter Details Date Type Department Care Team (Late st Contact Info) Description 10/02/2022 [facility] [address] 4th [place] [phone] Cisco Caceres MD [address] [place] [address]483 Social History Tobacco Use Types Packs/Day Years [...] Description 06/15/2024 9:00 AM CDT Virtual Visit [facility] [address] [place] [address] [phone] Paul Sanford MD [address] [place] [address] [address] [address] documented as of this encounter Visit Diagnoses Not on filedocumented in this encounter Care Teams Audio Visual Engineer Relationship Specialty Start Date End Date Sushant Schreiber MD [facility] [address] [place] [address] PCP - General Family Medicine 12/02/21 No Ref-Primary, Physician 12/02/21 Cisco Caceres MD [address] [place] [address] Fellow Gastroenterology 12/09/21 Sabiha Hogan APRN ORE CHARGER [address] [place], [place] 197735 Assigned Heart and Vascular Provider 12/15/21 02/13/23 Yung Rodriguez MD [address] [place], [place] 873325 Cardiovascular Disease 12/25/21 [facility] [address] [place] [address] [phone] Pharmacist Pharmacist Passenger Car Cleaning Supervisor 02/06/22 [facility] [address] [place] [address] 75274 Assigned MTM Pharmacist 08/13/22 Billie Tucker, RN Specialty Behavioral Specialist Gastroenterology 12/10/22 Chantale Grande, PACrispinC [address] [place] [address] Physician Procurement Engineer Dermatology 12/25/22 01/13/23 Paul Sanford MD 500 [place] [address] Gastroenterology 12/25/22 Paul Sanford MD 500 [place] [address] Referring Physician Gastroenterology 01/14/23 Jt Waters MD 500 [place] [address] Dermatology 01/14/23 Jt Waters MD [address] [place] [address] Assigned Surgical Provider 01/17/23 01/28/24 Bhavik Segura PA-C [address] [place] [address] Physician Procurement Engineer Gastroenterology 04/28/23 Paul Sanford MD [address] [place] [address] 24360 Assigned Gastroenterology Provider 07/18/23 Favian Mcknight MD [address] [place] [address] 15896 Dermatology 12/09/23 Favian Mcknight MD [address] [place] [address] 49221 Assigned Surgical Provider 01/29/24 documented as of this encounter
--- OUTSIDE RECORDS SUMMARY | 2024-06-14 19:49 | XMS_ITS | Encounter Summary ---
Author Organization [place] Address [address] [place] [address] 66092 Care Team Providers Care Medical Clerk Name Role Phone Sushant Schreiber MD Primary Care Provider No Ref-Primary, Physician Unavailable [phone] Cisco Caceres MD Unavailable [phone] Sabiha Hogan APRN DISHWASHER Unavailable [phone] Yung Rodriguez MD Unavailable Tatianna Horne [facility] Unavailable [phone] Tatianna Horne [facility] Unavailable Billie Tucker RN Unavailable Unavailable Chantale Grande PA-C Unavailable [phone] Paul Sanford MD Unavailable [phone] Paul Sanford MD Unavailable Jt Waters MD Unavailable Jt Waters MD Unavailable Bhavik Segura PA-C Unavailable [phone] Paul Sanford MD Unavailable [phone] Favian Mcknight MD Unavailable [phone] Favian Mcknight MD Unavailable [phone] Encounter Details Date Type Department Care Team (Late st Contact Info) Description 08/12/2022 [facility] [address] 4th [place] [phone] Mikala Kennedy CMA Social History Tobacco Use Types Packs/Day Years [...] 9:00 AM CDT Virtual Visit [facility] [address] [place] [address] [phone] Paul Sanford MD [address] [place] [address] 755955 [address] 613535 documented as of this encounter Visit Diagnoses Not on filedocumented in this encounter Care Teams Medical Clerk Relationship Specialty Start Date End Date Sushant Schreiber MD [facility] & [address] [address] PCP - General Family Medicine 12/02/21 No Ref-Primary, Physician 12/02/21 Cisco Caceres MD [address] [place] [address] 284 [place] [address] Fellow Gastroenterology 12/09/21 Sabiha Hogan APRN DISHWASHER [address] [place] [address] Assigned Heart and Vascular Provider 12/15/21 02/13/23 Yung Rodriguez MD [address] [place] [address] Cardiovascular Disease 12/25/21 Tatianna Horne [facility] [address] [place] [address] Pharmacist Pharmacist Etiquette Teacher 02/06/22 [facility] [address] [place] [address] Assigned MTM Pharmacist 08/13/22 Billie Tucker, RN Specialty Hand Candy Dipper Gastroenterology 12/10/22 Chantale Grande PABeti [address] [place] [address] Physician Babbitter Dermatology 12/25/22 01/13/23 Paul Sanford MD 500 [place] [address] Gastroenterology 12/25/22 Paul Sanford MD 500 [place] [address] Referring Physician Gastroenterology 01/14/23 Jt Waters MD 500 [place] [address] Dermatology 01/14/23 Jt Waters MD [address] [place] [address] Assigned Surgical Provider 01/17/23 01/28/24 Bhavik Segura PA-C [address] [place] [address] Physician Babbitter Gastroenterology 04/28/23 Paul Sanford MD [address] [place] [address] Assigned Gastroenterology Provider 07/18/23 Favian Mcknight MD [address] [place] [address] Dermatology 12/09/23 Favian Mcknight MD [address] [place] [address] 95897 Assigned Surgical Provider 01/29/24 documented as of this encounter
--- OUTSIDE RECORDS SUMMARY | 2024-06-14 19:49 | XMS_ITS | Encounter Summary ---
Author Organization [place] Address [address] [place] [address] Care Team Providers Care Resident Service Coordinator Name Role Phone Sushant Schreiber MD Primary Care Provider [phone] No Ref-Primary, Physician Unavailable [phone] Cisco Caceres MD Unavailable [phone] Sabiha Hogan APRN DIALYSIS EQUIPMENT TECHNICIAN Unavailable [phone] Yung Rodriguez MD Unavailable Tatianna Horne [facility] Unavailable Tatianna Horne [facility] Unavailable [phone] Billie Tucker RN Unavailable Unavailable Chantale Grande PA-C Unavailable [phone] Paul Sanford MD Unavailable [phone] Paul Sanford MD Unavailable Jt Waters MD Unavailable Jt Waters MD Unavailable Bhavik Segura PA-C Unavailable [phone] Paul Sanford MD Unavailable Favian Mcknight MD Unavailable [phone] Favian Mcknight MD Unavailable [phone] Encounter Details Date Type Department Care Team (Late st Contact Info) Description 08/14/2022 [facility] [address] [facility] [address] [place] [phone] Sabiha Hogan, CATALOG LIBRARY ASSISTANT DIALYSIS EQUIPMENT TECHNICIAN [address] [place] [address] Social History Tobacco Use Types Packs/Day Years [...] Description 06/15/2024 9:00 AM CDT Virtual Visit [facility] [address] [place] [phone] Paul Sanford MD [address] [place] [address] 384465 [address] [address] documented as of this encounter Visit Diagnoses Not on filedocumented in this encounter Care Teams Resident Service Coordinator Relationship Specialty Start Date End Date Sushant Schreiber MD [facility] [address] [place] [address] PCP - General Family Medicine 12/02/21 No Ref-Primary, Physician 12/02/21 Cisco Caceres MD [address] [place] [address] 284 [place] [address] Fellow Gastroenterology 12/09/21 Sabiha Hogan APRN DIALYSIS EQUIPMENT TECHNICIAN [address] [place], [place] 301555 Assigned Heart and Vascular Provider 12/15/21 02/13/23 Yung Rodriguez MD [address] [place], [place] 069825 Cardiovascular Disease 12/25/21 [facility] [address] [place] [address] 600125 Pharmacist Pharmacist Compound Coating Machine Offbearer 02/06/22 [facility] [address] [place] [address] 793485 Assigned MTM Pharmacist 08/13/22 Billie Tucker, RN Specialty Fork Lift Truck Operator Gastroenterology 12/10/22 Chantale Grande, PACrispinC [address] [place] [address] Physician Ultrasound Technician Dermatology 12/25/22 01/13/23 Paul Sanford MD 500 [place] [address] Gastroenterology 12/25/22 Paul Sanford MD 500 [place] [address] Referring Physician Gastroenterology 01/14/23 Jt Waters MD 500 [place] [address] Dermatology 01/14/23 Jt Waters MD [address] [place] [address] Assigned Surgical Provider 01/17/23 01/28/24 Bhavik Segura PA-C [address] [place] [address] Physician Ultrasound Technician Gastroenterology 04/28/23 Paul Sanford MD [address] [place] [address] Assigned Gastroenterology Provider 07/18/23 Favian Mcknight MD [address] [place] [address] Dermatology 12/09/23 Favian Mcknight MD [address] [place] [address] 8[address] Assigned Surgical Provider 01/29/24 documented as of this encounter
--- OUTSIDE RECORDS SUMMARY | 2024-06-14 19:49 | XMS_ITS | Encounter Summary ---
Author Organization [facility] Address [address] [place] [address] Care Team Providers Care Insulator Helper Name Role Phone Sushant Schreiber MD Primary Care Provider [phone] No Ref-Primary, Physician Unavailable [phone] Cisco Caceres MD Unavailable [phone] Sabiha Hogan APRN IMPRESSION PRINTER Unavailable [phone] Yung Rodriguez MD Unavailable Tatianna Horne [facility] Unavailable [phone] Tatianna Horne [facility] Unavailable [phone] Tatianna Horne [facility] Unavailable [phone] Billie Tucker RN Unavailable Unavailable Ch[place]ale Grande PA-C Unavailable [phone] Paul Sanford MD Unavailable [phone] Paul Sanford MD Unavailable [phone] Jt Waters MD Unavailable Jt Waters MD Unavailable Bhavik Segura PA-C Unavailable [phone] Paul Sanford MD Unavailable [phone] Favian Mcknight MD Unavailable [phone] Favian Mcknight MD Unavailable [phone] Encounter Details Date Type Department Care Team (Late st Contact Info) Description 06/09/2022 Home Infusion ([facility]) [facility] [address] [place] [phone] Josue Hedrick RN Social History Tobacco Use Types Packs/Day [...] on file documented as of this encounter Nursing Notes * Josue Hedrick RN - 06/09/2022 6:11 PM CDT Skilled Nurse visit in the home to administer Remicade 900mg. No recent elevated temperature, fever, chills, productive cough, coughing for 3 weeks or longer or hemoptysis, abnormal vital signs, night sweats, chest pain. No decrease in your appetite, unexplained weight loss or fatigue. No other newonset medical symptoms. Current weight 260 lbs. Peripheral line placed on left AC, x 1, Preedicatedwith Tylenol 650mg, and Benadryl 50mg orally. Labs drawn per ordered. Infusion completed without complication or reaction. Pt reports therapy is effective in managing symptoms related to therapy. documented in this encounter Plan of Treatment Upcoming Encounters Date Type Department Care Team (Late st Contact Info) Description 06/15/2024 9:00 AM CDT Virtual Visit [facility] [address] [place] [address] Paul Sanford MD [address] [place] [address] Tatianna Horne, [facility] [address] [place] [address] [phone] documented as of this encounter Visit Diagnoses Not on filedocumented in this encounter Care Teams Insulator Helper Relationship Specialty Start Date End Date Sushant Schreiber MD [facility] & [address] [address] PCP - General Family Medicine 12/02/21 No Ref-Primary, Physician 12/02/21 Cisco Caceres MD [address] [place] [address] 237455 Fellow Gastroenterology 12/09/21 Sabiha Hogan APRN IMPRESSION PRINTER [address] [place] 143165 Assigned Heart and Vascular Provider 12/15/21 02/13/23 Yung Rodriguez MD [address] [place], [place] 208775 Cardiovascular Disease 12/25/21 Tatianna Horne [facility] [address] [place] [address] Pharmacist Pharmacist Supplies Packer 02/06/22 Tatianna Horne [facility] [address] [place] [address] 07494 Assigned MTM Pharmacist 04/12/22 Tatianna Horne [facility] [address] [place] [address] 80687 Assigned MTM Pharmacist 08/13/22 Billie Tucker, RN Specialty Therapeutic Specialist Gastroenterology 12/10/22 Chantale Grande PA-C [address] [place] [address] Physician Underwater Trapper Dermatology 12/25/22 01/13/23 Paul Sanford MD 500 [place] [address] MD Gastroenterology 12/25/22 Paul Sanford MD 500 [place] [address] Referring Physician Gastroenterology 01/14/23 Jt Waters MD 500 [place] [address] MD Dermatology 01/14/23 Jt Waters MD 500 [place] [address] Assigned Surgical Provider 01/17/23 01/28/24 Bhavik Segura PA-C [address] [place], [place] 220935 Physician Underwater Trapper Gastroenterology 04/28/23 Paul Sanford MD [address] [place], [place] 695245 Assigned Gastroenterology Provider 07/18/23 Favian Mcknight MD [address] [place], [place] 253915 Dermatology 12/09/23 Favian Mcknight MD 9 [place] [address] Assigned Surgical Provider 01/29/24 documented as of this encounter
--- OUTSIDE RECORDS SUMMARY | 2024-06-14 19:49 | XMS_ITS | Encounter Summary ---
Author Organization [place] Address [address] [place] [address]99 Care Team Providers Care Pocketed Spring Assembler Name Role Phone Sushant Schreiber MD Primary Care Provider [phone] No Ref-Primary, Physician Unavailable [phone] Cisco Caceres MD Unavailable [phone] Sabiha Hogan APRN CHARACTER IMPERSONATOR Unavailable [phone] Yung Rodriguez MD Unavailable Tatianna Horne [facility] Unavailable [phone] Tatianna Horne [facility] Unavailable [phone] Tatianna Horne [facility] Unavailable [phone] Billie Tucker RN Unavailable Unavailable Chantale Grande PA-C Unavailable [phone] Paul Sanford MD Unavailable [phone] Paul Sanford MD Unavailable [phone] Jt Waters MD Unavailable Jt Waters MD Unavailable Bhavik Segura PA-C Unavailable [phone] Paul Sanford MD Unavailable [phone] Favian Mcknight MD Unavailable [phone] Favian Mcknight MD Unavailable [phone] Encounter Details Date Type Department Care Team (Late Contact Info) Description 07/07/2022 My[facility] Medical Advice [facility] [address] [place] [phone] Michelle Enamorado, RN Social History Tobacco Use Types Packs/Day [...] Encounters Date Type Department Care Team (Late Contact Info) Description 06/15/2024 9:00 AM CDT Virtual Visit [facility] [address] [place] [address] [phone] Paul Sanford MD [address] [place] [address] [address] [address] documented as of this encounter Visit Diagnoses Not on filedocumented in this encounter Care Teams Pocketed Spring Assembler Relationship Specialty Start Date End Date Sushant Schreiber MD [facility] [address] [place] [address] PCP - General Family Medicine 12/02/21 No Ref-Primary, Physician 12/02/21 Cisco Caceres MD [address] [place] [address] 284 [place], [place] 262835 Fellow Gastroenterology 12/09/21 Sabiha Hogan APRN CNP [address] [place] [address] Assigned Heart and Vascular Provider 12/15/21 02/13/23 Yung Rodriguez MD [address] [place] [address] Cardiovascular Disease 12/25/21 [facility] [address] [place] [address] [phone] Pharmacist Pharmacist Special Warfare Combatant Crewman 02/06/22 [facility] [address] [place] [address] [phone] Assigned MTM Pharmacist 04/12/22 [facility] [address] [place] [address] 8[address] Assigned MTM Pharmacist 08/13/22 Billie Tucker, RN Specialty Liner Roll Changer Gastroenterology 12/10/22 Chantale Grande [facility] [address] [place] [address] Physician Electronic Masking System Operator Dermatology 12/25/22 01/13/23 Paul Sanford MD 500 [place] [address] Gastroenterology 12/25/22 Paul Sanford MD 500 [place] [address] Referring Physician Gastroenterology 01/14/23 Jt Waters MD 500 [place] [address] Dermatology 01/14/23 Jt Waters MD [address] [place] [address] Assigned Surgical Provider 01/17/23 01/28/24 Bhavik Segura PA-C [address] [place] [address] Physician Electronic Masking System Operator Gastroenterology 04/28/23 Paul Sanford MD 500 [place] [address] Assigned Gastroenterology Provider 07/18/23 Favian Mcknight MD [address] [place] [address] Dermatology 12/09/23 Favian Mcknight MD [address] [place] [address] 0[address]14 Assigned Surgical Provider 01/29/24 documented as of this encounter
--- OUTSIDE RECORDS SUMMARY | 2024-06-14 19:49 | XMS_ITS | Encounter Summary ---
Author Organization [place] Address [address] [place] [address] Care Team Providers Care Claim Specialist Name Role Phone Sushant Schreiber MD Primary Care Provider No Ref-Primary, Physician Unavailable [phone] Cisco Caceres MD Unavailable [phone] Sabiha Hogan APRN BREAKER UNIT ASSEMBLER Unavailable [phone] Yung Rodriguez MD Unavailable Tatianna Horne [facility] Unavailable [phone] Tatianna Horne [facility] Unavailable [phone] Tatianna Horne [facility] Unavailable [phone] Billie Tucker RN Unavailable Unavailable Chantale Grande PA-C Unavailable [phone] Paul Sanford MD Unavailable [phone] Paul Sanford MD Unavailable [phone] Jt Waters MD Unavailable Jt Waters MD Unavailable Bhavik Segura PA-C Unavailable [phone] Paul Sanford MD Unavailable [phone] Favian Mcknight MD Unavailable [phone] Favian Mcknight MD Unavailable [phone] Encounter Details Date Type Department Care Team (Late st Contact Info) Description 07/02/2022 My[facility] Medical Advice [address] [place] [phone] Billie Santo RN Social History Tobacco Use Types Packs/Day [...] Description 06/15/2024 9:00 AM CDT Virtual Visit [facility] [address] [place] [phone] Paul Sanford MD [address] [place] [address] [address] 786115 documented as of this encounter Visit Diagnoses Not on filedocumented in this encounter Care Teams Claim Specialist Relationship Specialty Start Date End Date Sushant Schreiber MD [facility] & [address] [address] PCP - General Family Medicine 12/02/21 No Ref-Primary, Physician 12/02/21 Cisco Caceres MD [address] [place] [address] Fellow Gastroenterology 12/09/21 Sabiha Hogan APRN BREAKER UNIT ASSEMBLER [address] [place] 389455 Assigned Heart and Vascular Provider 12/15/21 02/13/23 Yung Rodriguez MD [address] [place] [address] Cardiovascular Disease 12/25/21 [facility] [address] [place] [address] [phone] Pharmacist Pharmacist Stripping Cutter And Winder 02/06/22 [facility] [address] [place] [address] 834885 Assigned MTM Pharmacist 04/12/22 [facility] [address] [place] [address] [phone] Assigned MTM Pharmacist 08/13/22 Billie Tucker, RN Specialty Jewelry Sales Representative Gastroenterology 12/10/22 Chantale Grande [facility] [address] [place] [address] Physician Refueling Ramp Supervisor Dermatology 12/25/22 01/13/23 Paul Sanford MD 500 [place], [place] 995745 Gastroenterology 12/25/22 Paul Sanford MD 500 [place] [address] Referring Physician Gastroenterology 01/14/23 Jt Waters MD 500 [place] [address] Dermatology 01/14/23 Jt Waters MD 500 [place] [address] Assigned Surgical Provider 01/17/23 01/28/24 Bhavik Segura PA-C [address] [place] [address] Physician Refueling Ramp Supervisor Gastroenterology 04/28/23 Paul Sanford MD [address] [place] [address] Assigned Gastroenterology Provider 07/18/23 Favian Mcknight MD [address] [place] [address] Dermatology 12/09/23 Favian Mcknight MD [address] [place] [address] Assigned Surgical Provider 01/29/24 documented as of this encounter
--- OUTSIDE RECORDS SUMMARY | 2024-06-14 19:49 | XMS_ITS | Encounter Summary ---
Author Organization [place] Address [address] [place] [address] Care Team Providers Care Getter Operator Name Role Phone Sushant Schreiber MD Primary Care Provider [phone] No Ref-Primary, Physician Unavailable [phone] Cisco Caceres MD Unavailable [phone] Sabiha Hogan APRN CONTRACT ATTORNEY Unavailable [phone] Yung Rodriguez MD Unavailable Tatianna Horne [facility] Unavailable Tatianna Horne [facility] Unavailable Billie Tucker RN Unavailable Unavailable Chantale Grande PA-C Unavailable Paul Sanford MD Unavailable Paul Sanford MD Unavailable Jt Waters MD Unavailable Jt Waters MD Unavailable Bhavik Segura PA-C Unavailable [phone] Paul Sanford MD Unavailable Favian Mcknight MD Unavailable [phone] Favian Mcknight MD Unavailable [phone] Encounter Details Date Type Department Care Team (Late st Contact Info) Description 11/24/2022 MyC Medical [facility] Clinic [address] 4th [place] [phone] Radhika Love MA Social History Tobacco Use Types Packs/Day Years [...] Description 06/15/2024 9:00 AM CDT [facility] [address] [phone] Paul Sanford MD [address] [place] [phone] [address] 396175 documented as of this encounter Visit Diagnoses Not on filedocumented in this encounter Care Teams Getter Operator Relationship Specialty Start Date End Date Sushant Schreiber MD [facility] & [address] [address] PCP - General Family Medicine 12/02/21 No Ref-Primary, Physician 12/02/21 Cisco Caceres MD [address] [place] [address] Fellow Gastroenterology 12/09/21 Sabiha Hogan APRN CONTRACT ATTORNEY [address] [place] [address] Assigned Heart and Vascular Provider 12/15/21 02/13/23 Yung Rodriguez MD [address] [place] [address] Cardiovascular Disease 12/25/21 [facility] [address] [place] [address] Pharmacist Pharmacist Blending Machine Feeder 02/06/22 [facility] [address] [place] [address] Assigned MTM Pharmacist 08/13/22 Billie Tucker, RN Specialty Cut Off Sawyer Gastroenterology 12/10/22 Chantale Grande, MAJO [address] [place] [address] Physician Air Cargo Agent Dermatology 12/25/22 01/13/23 Paul Sanford MD 500 [place] [address] Gastroenterology 12/25/22 Paul Sanford MD [address] [place] [address] Referring Physician Gastroenterology 01/14/23 Jt Waters MD 500 [place] [address] Dermatology 01/14/23 Jt Waters MD [address] [place] [address] Assigned Surgical Provider 01/17/23 01/28/24 Bhavik Segura PA-C [address] [place] [address] 080225 Physician Air Cargo Agent Gastroenterology 04/28/23 Paul Sanford MD [address] [place] [address] Assigned Gastroenterology Provider 07/18/23 Favian Mckngiht MD [address] [place] [address] Dermatology 12/09/23 Favian Mcknight MD [address] [place] [address] Assigned Surgical Provider 01/29/24 documented as of this encounter
--- OUTSIDE RECORDS SUMMARY | 2024-06-14 19:49 | XMS_ITS | Encounter Summary ---
Author Organization [place] Address [address] [place] [address] Care Team Providers Care Custom Frame Assembler Name Role Phone Sushant Schreiber MD Primary Care Provider No Ref-Primary, Physician Unavailable [phone] Cisco Caceres MD Unavailable [phone] Sabiha Hogan APRN FARM MANAGER Unavailable [phone] Yung Rodriguez MD Unavailable Tatianna Horne [facility] Unavailable [phone] [facility] Unavailable [phone] [facility] Unavailable [phone] Billie Tucker RN Unavailable Unavailable Ch[place]ale [place] PA-C Unavailable [phone] Paul Sanford MD Unavailable [phone] Paul Sanford MD Unavailable [phone] Jt Waters MD Unavailable Jt Waters MD Unavailable Bhavik Segura PA-C Unavailable [phone] Paul Sanford MD Unavailable [phone] Favian Mcknight MD Unavailable [phone] Favian Mcknight MD Unavailable [phone] Encounter Details Date Type Department Care Team (Late st Contact Info) Description 06/27/2022 MyC Medical Advice [address]th [place] [phone] Chantell Madera, JANELL Social History Tobacco Use Types Packs/Day [...] AM CDT Virtual Visit [facility] [address] [place] [phone] Paul Sanford MD [address] [place] [address] [address] [phone] documented as of this encounter Visit Diagnoses Not on filedocumented in this encounter Care Teams Custom Frame Assembler Relationship Specialty Start Date End Date Sushant Schreiber MD [facility] & [address] [address] PCP - General Family Medicine 12/02/21 No Ref-Primary, Physician 12/02/21 Cisco Caceres MD [address] [place] [address] Fellow Gastroenterology 12/09/21 Sabiha Hogan APRN FARM MANAGER [address] [place] 00[address]95 Assigned Heart and Vascular Provider 12/15/21 02/13/23 Yung Rodriguez MD [address] [place], [place] 832095 Cardiovascular Disease 12/25/21 [facility] [address] [place] [address] [phone] Pharmacist Pharmacist Crane Service Technician 02/06/22 [facility] [address] [place] [address] 612295 Assigned MTM Pharmacist 04/12/22 [facility] [address] [place] [address] [phone] Assigned MTM Pharmacist 08/13/22 Billie Tucker, RN Specialty Microbiology Director Gastroenterology 12/10/22 Chantale Grande PACrispinC [address] [place] [address] Physician Fuselage Framer Dermatology 12/25/22 01/13/23 Paul Sanford MD 500 [place], [place] 801545 Gastroenterology 12/25/22 Paul Sanford MD 500 [place], [place] 742175 Referring Physician Gastroenterology 01/14/23 Jt Waters MD 500 [place] [address] Dermatology 01/14/23 Jt Waters MD 500 [place] [address] Assigned Surgical Provider 01/17/23 01/28/24 Bhavik Segura PA-C [address] [place] [address] Physician Fuselage Framer Gastroenterology 04/28/23 Paul Sanford MD [address] [place] [address] Assigned Gastroenterology Provider 07/18/23 Favian Mcknight MD [address] [place] [address] Dermatology 12/09/23 Favian Mcknight MD 9 [place] [address] Assigned Surgical Provider 01/29/24 documented as of this encounter
--- OUTSIDE RECORDS SUMMARY | 2024-06-14 19:49 | XMS_ITS | Encounter Summary ---
Author Organization [place] Address [address] [place] [address] Care Team Providers Care Reinforcing Steel Worker Wire Mesh Name Role Phone Sushant Schreiber MD Primary Care Provider No Ref-Primary, Physician Unavailable [phone] Cisco Caceres MD Unavailable [phone] Sabiha Hogan APRN PLYCOR OPERATOR Unavailable [phone] Yung Rodriguez MD Unavailable Tatianna Horne [facility] Unavailable Tatianna Horne [facility] Unavailable Billie Tucker RN Unavailable Unavailable Ch[place] PA-C Unavailable [phone] Paul Sanford MD Unavailable Paul Sanford MD Unavailable Jt Waters MD Unavailable Jt Waters MD Unavailable Bhavik Segura PA-C Unavailable [phone] Paul Sanford MD Unavailable Favian Mcknight MD Unavailable [phone] Favian Mcknight MD Unavailable [phone] Encounter Details Date Type Department Care Team (Late st Contact Info) Description 10/08/2022 MyC Medical [facility] Gastroenterology Clinic [address] 4th [place] [phone] Billie Tucker RN Social History Tobacco Use [...] Description 06/15/2024 9:00 AM CDT Virtual Visit [facility] [address] [place] [phone] Paul Sanford MD [address] [place] [address] 2[address]95 [address] [phone] documented as of this encounter Visit Diagnoses Not on filedocumented in this encounter Care Teams Reinforcing Steel Worker Wire Mesh Relationship Specialty Start Date End Date Sushant Schreiber MD [facility] & [address] [address] PCP - General Family Medicine 12/02/21 No Ref-Primary, Physician 12/02/21 Cisco Caceres MD [address] [place] [address] Fellow Gastroenterology 12/09/21 Sabiha Hogan APRN PLYCOR OPERATOR [address] [place] [address] Assigned Heart and Vascular Provider 12/15/21 02/13/23 Yung Rodriguez MD [address] [place] [address] Cardiovascular Disease 12/25/21 Tatianna Horne [facility] [address] [place] [address] Pharmacist Pharmacist Termite Control Technician 02/06/22 [facility] 9 [place] [address] Assigned MTM Pharmacist 08/13/22 Billie Tucker, RN Specialty Emergency Medical Technician Gastroenterology 12/10/22 Chantale Grande PABeti [address] [place] [address] Physician Eyeglass Frames Polisher Dermatology 12/25/22 01/13/23 Paul Sanford MD 500 [place] [address] Gastroenterology 12/25/22 Paul Sanford MD 500 [place] [address] Referring Physician Gastroenterology 01/14/23 Jt Waters MD 500 [place] [address] Dermatology 01/14/23 Jt Waters MD [address] [place] [address] Assigned Surgical Provider 01/17/23 01/28/24 Bhavik Segura PA-C [address] [place] [address] Physician Eyeglass Frames Polisher Gastroenterology 04/28/23 Paul Sanford MD [address] [place] [address] Assigned Gastroenterology Provider 07/18/23 Favian Mcknight MD [address] [place] [address] Dermatology 12/09/23 Favian Mcknight MD [address] [place] [address] Assigned Surgical Provider 01/29/24 documented as of this encounter
--- OUTSIDE RECORDS SUMMARY | 2024-06-14 19:49 | XMS_ITS | Encounter Summary ---
Author Organization [place] Address [address] [place] [address] Care Team Providers Care Machine Stuffer Automatic Name Role Phone Sushant Schreiber MD Primary Care Provider No Ref-Primary, Physician Unavailable [phone] Cisco Caceres MD Unavailable [phone] Sabiha Hogan APRN COOK LARDER Unavailable [phone] Yung Rodriguez MD Unavailable Tatianna Horne [facility] Unavailable [phone] Tatianna Horne [facility] Unavailable [phone] Tatianna Horne [facility] Unavailable [phone] Billie Tucker RN Unavailable Unavailable Chantale Grande PA-C Unavailable [phone] Paul Sanford MD Unavailable [phone] Paul Sanford MD Unavailable [phone] Jt Waters MD Unavailable Jt Waters MD Unavailable Bhavik Segura PA-C Unavailable [phone] Paul Sanford MD Unavailable [phone] Favian Mcknight MD Unavailable [phone] Favian Mcknight MD Unavailable [phone] Encounter Details Date Type Department Care Team (Late st Contact Info) Description 06/27/2022 MyC Medical Advice [address]th [place] [phone] Chantell Madera, JANELL Social History Tobacco Use [...] [facility] [address] [place] [phone] Paul Sanford MD [address] [place] [address] [address] 888305 documented as of this encounter Visit Diagnoses Not on filedocumented in this encounter Care Teams Machine Stuffer Automatic Relationship Specialty Start Date End Date Sushant Schreiber MD [facility] & [address] [address] PCP - General Family Medicine 12/02/21 No Ref-Primary, Physician 12/02/21 Cisco Caceres MD [address] [place] [address] Fellow Gastroenterology 12/09/21 Sabiha Hogan APRN COOK LARDER [address] [place] 199495 Assigned Heart and Vascular Provider 12/15/21 02/13/23 Yung Rodriguez MD [address] [place], [place] 564465 Cardiovascular Disease 12/25/21 [facility] [address] [place] [address] 225565 Pharmacist Pharmacist Emergency Communications Operator 02/06/22 [facility] [address] [place] [address] 897455 Assigned MTM Pharmacist 04/12/22 [facility] [address] [place] [address] [phone] Assigned MTM Pharmacist 08/13/22 Billie Tucker, RN Specialty Boot Maker Gastroenterology 12/10/22 Chantale Grande PACrispinC [address] [place] [address] Physician Program Management Professional Dermatology 12/25/22 01/13/23 Paul Sanford MD 500 [place], [place] 403415 Gastroenterology 12/25/22 Paul Sanford MD 500 [place], [place] 570175 Referring Physician Gastroenterology 01/14/23 Jt Waters MD 500 [place] [address] Dermatology 01/14/23 Jt Waters MD 500 [place] [address] Assigned Surgical Provider 01/17/23 01/28/24 Bhavik Segura PA-C [address] [place] [address] Physician Program Management Professional Gastroenterology 04/28/23 Paul Sanford MD [address] [place] [address] Assigned Gastroenterology Provider 07/18/23 Favian Mcknight MD [address] [place] [address] Dermatology 12/09/23 Favian Mcknight MD 9 [place] [address] Assigned Surgical Provider 01/29/24 documented as of this encounter
--- OUTSIDE RECORDS SUMMARY | 2024-06-14 19:50 | XMS_ITS | Encounter Summary ---
Author Organization [place] Address [address] [place] [address] Care Team Providers Care Molder Closed Molds Name Role Phone Sushnat Schreiber MD Primary Care Provider No Ref-Primary, Physician Unavailable [phone] Cisco Caceres MD Unavailable [phone] Sabiha Hogan APRN CHARGE ATTENDANT Unavailable [phone] Yung Rodriguez MD Unavailable Tatianna Horne [facility] Unavailable [phone] Tatianna Horne [facility] Unavailable [phone] Tatianna Horne [facility] Unavailable [phone] Billie Tucker RN Unavailable Unavailable Chantale Grande PA-C Unavailable [phone] Paul Sanford MD Unavailable [phone] Paul Sanford MD Unavailable [phone] Jt Waters MD Unavailable Jt Waters MD Unavailable Bhavik Segura PA-C Unavailable [phone] Paul Sanford MD Unavailable [phone] Favian Mcknight MD Unavailable [phone] Favian Mcknight MD Unavailable [phone] Encounter Details Date Type Department Care Team (Late st Contact Info) Description 03/17/2022 MyC Medical Advice [facility] Gastroenterology Clinic [address] [place] [phone] Radhika Love MA Social History Tobacco Use Types Packs/Day Years Used Date Smoking Tobacco: Former Cigarettes Q uit: 05/01/2015 Smokeless Tobacco: Never Alcohol Use Standard Drinks/Week Comments Not Currently 0 (1 standard drink = 0.6 oz pur e alcohol) stop drinking 06/2020 PHQ-2 Answer Date Recorded PHQ-2 Score 0 01/22/2022 Sex and Gender Information Value Date Recorded Sex Assigned at Not on file Gender Identity Not on file Sexual Orientation Not on file COVID-19 Exposure Response Date Recorded In the last month, have you been in contact with someone who was confirmed or suspected to have Coronavirus / COVID-19? No / Unsure 02/19/2022 8:15 AM CDT documented as of this encounter Plan of Treatment Upcoming Encounters Date Type Department Care Team (Late st Contact Info) Description 06/15/2024 9:00 AM CDT Virtual Visit [facility] [address] [place] [phone] Paul Sanford MD [address] [place] [address] [address] [address] documented as of this encounter Visit Diagnoses Not on filedocumented in this encounter Additional Health Concerns Infection Onset Date Last Indicated Resolved Time COVID-19 02/27/2022 02/27/2022 03/20/2022 11:3 9 PM CDT documented as of this encounter Care Teams Molder Closed Molds Relationship Specialty Start Date End Date Sushant Schreiber MD [address] [address] PCP - General Family Medicine 12/02/21 No Ref-Primary, Physician 12/02/21 Cisco Caceres MD [address] [place] [address] Fellow Gastroenterology 12/09/21 Sabiha Hogan APRN CHARGE ATTENDANT [address] [place], [place] 456995 Assigned Heart and Vascular Provider 12/15/21 02/13/23 Yung Rodriguez MD [address] [facility] [address] [place] [address] Cardiovascular Disease 12/25/21 [facility] [address] [place] [address] Pharmacist Pharmacist Tar Boiler 02/06/22 [facility] [address] [place] [address] Assigned MTM Pharmacist 04/12/22 [facility] [address] [place] [address] Assigned MTM Pharmacist 08/13/22 Billie Tucker, JANELL Specialty Dry Boss Gastroenterology 12/10/22 Chantale Grande PA-C [address] [place] [address] Physician Roofing Subcontractor Dermatology 12/25/22 01/13/23 Paul Sanford MD 500 [place] [address] MD Gastroenterology 12/25/22 Paul Sanford MD 500 [place] [address] Referring Physician Gastroenterology 01/14/23 Jt Waters MD 500 [place] [address] Dermatology 01/14/23 Jt Waters MD 500 [place] [address] Assigned Surgical Provider 01/17/23 01/28/24 Bhavik Segura PA-C [address] [place] [address] 493775 Physician Roofing Subcontractor Gastroenterology 04/28/23 Paul Sanford MD 500 [place] [address] Assigned Gastroenterology Provider 07/18/23 Favian Mcknight MD [address] [place] [address] Dermatology 12/09/23 Favian Mcknight MD 9 [place] [address] Assigned Surgical Provider 01/29/24 documented as of this encounter
--- OUTSIDE RECORDS SUMMARY | 2024-06-14 19:50 | XMS_ITS | Encounter Summary ---
Author Organization [facility] Address [address] [place] [address] Care Team Providers Care Ton Container Filler Name Role Phone Sushant Schreiber MD Primary Care Provider No Ref-Primary, Physician Unavailable [phone] Cisco Caceres MD Unavailable [phone] Sabiha Hogan APRN POULTRY HUSBANDRY TEACHER Unavailable [phone] Yung Rodriguez MD Unavailable Tatianna Horne [facility] Unavailable [phone] [facility] Unavailable [phone] [address] [facility] Unavailable [phone] Billie Tucker RN Unavailable Unavailable Chantale Grande PA-C Unavailable [phone] Paul Sanford MD Unavailable [phone] Paul Sanford MD Unavailable [phone] Jt Waters MD Unavailable Jt Waters MD Unavailable Bhavik Segura PA-C Unavailable [phone] Paul Sanford MD Unavailable [phone] Favian Mcknight MD Unavailable [phone] Favian Mcknight MD Unavailable [phone] Encounter Details Date Type Department Care Team (Late st Contact Info) Description 03/28/2022 MyC Medical Advice [facility] Gastroenterology Clinic [address] [place] [phone] Mikala Kennedy CMA Social History Tobacco Use [...] Description 06/15/2024 9:00 AM CDT [facility] [address] [phone] Paul Sanford MD [address] [place] [address] [address] [address] documented as of this encounter Visit Diagnoses Not on filedocumented in this encounter Care Teams Ton Container Filler Relationship Specialty Start Date End Date Sushant Schreiber MD [facility] & [address] [address] PCP - General Family Medicine 12/02/21 No Ref-Primary, Physician 12/02/21 Cisco Caceres MD [address] [place] [address] Fellow Gastroenterology 12/09/21 Sabiha Hogan APRN POULTRY HUSBANDRY TEACHER [address] [place] [address] Assigned Heart and Vascular Provider 12/15/21 02/13/23 Yung Rodriguez MD [address] [place] [address] Cardiovascular Disease 12/25/21 [facility] [address] [place] [address] [phone] Pharmacist Pharmacist Slasher Sawyer 02/06/22 [facility] [address] [place] [address] 527195 Assigned MTM Pharmacist 04/12/22 [facility] [address] [place] [address] [phone] Assigned MTM Pharmacist 08/13/22 Billie Tucker, RN Specialty Fluorescent Solution Mixer Gastroenterology 12/10/22 Chantale Grande PA-C [address] [place] [address] Physician Grain Operator Dermatology 12/25/22 01/13/23 Paul Sanford MD 500 [place], [place] 127755 Gastroenterology 12/25/22 Paul Sanford MD 500 [place] [address] Referring Physician Gastroenterology 01/14/23 Jt Waters MD 500 [place] [address] Dermatology 01/14/23 Jt Waters MD 500 [place] [address] Assigned Surgical Provider 01/17/23 01/28/24 Bhavik Segura PA-C [address] [place] [address] Physician Grain Operator Gastroenterology 04/28/23 Paul Sanford MD [address] [place] [address] Assigned Gastroenterology Provider 07/18/23 Favian Mcknight MD [address] [place] [address] Dermatology 12/09/23 Favian Mcknight MD [address] [place] [address] Assigned Surgical Provider 01/29/24 documented as of this encounter
--- OUTSIDE RECORDS SUMMARY | 2024-06-14 19:50 | XMS_ITS | Encounter Summary ---
Author Organization [facility] Address [address] [place] [address] Care Team Providers Care Dye Boarding Machine Operator Name Role Phone Sushant Schreiber MD Primary Care Provider No Ref-Primary, Physician Unavailable [phone] iCsco Caceres MD Unavailable +[phone] Sabiha Hogan APRN MODEL AND MOLD MAKER Unavailable +[phone] Yung Rodriguez MD Unavailable Tatianna Horne [facility] Unavailable [phone] Tatianna Horne [facility] Unavailable [phone] Tatianna Horne [facility] Unavailable [phone] Billie Tucker RN Unavailable Unavailable Ch[place] PA-C Unavailable +[phone] Paul Sanford MD Unavailable [phone] Paul Sanford MD Unavailable [phone] Jt Waters MD Unavailable Jt Waters MD Unavailable Bhavik Segura PA-C Unavailable +[phone] Paul Sanford MD Unavailable [phone] Favian Mcknight MD Unavailable [phone] Favian Mcknight MD Unavailable [phone] Encounter Details Date Type Department Care Team (Late st Contact Info) Description 01/28/2022 MyC Medical Advice [facility] [address] [address] Michelle Enamorado RN Social History Tobacco Use Types Packs/Day [...] have Coronavirus / COVID-19? No / Unsure 01/29/2022 11:11 AM CDT documented as of this encounter Plan of Treatment Upcoming Encounters Date Type Department Care Team (Late st Contact Info) Description 06/15/2024 9:00 AM CDT Virtual Visit [facility] Cancer [address] [phone] Paul Sanford MD [address] [place] [address] [address] [address] documented as of this encounter Visit Diagnoses Not on filedocumented in this encounter Additional Health Concerns Infection Onset Date Last Indicated Resolved Time COVID-19 02/27/2022 02/27/2022 03/20/2022 11:3 9 PM CDT documented as of this encounter Care Teams Dye Boarding Machine Operator Relationship Specialty Start Date End Date Sushant Schreiber MD [address] [address] PCP - General Family Medicine 12/02/21 No Ref-Primary, Physician 12/02/21 Cisco Caceres MD [address] [place] [address] Fellow Gastroenterology 12/09/21 Sabiha Hogan APRN MODEL AND MOLD MAKER [address] [place], [place] [address] Assigned Heart and Vascular Provider 12/15/21 02/13/23 Yung Rodriguez MD [address] [facility] [address] [place] [address] Cardiovascular Disease 12/25/21 [facility] [address] [place] [address] Pharmacist Pharmacist Napkin Machine Operator 02/06/22 [facility] [address] [place] [address] Assigned MTM Pharmacist 04/12/22 [facility] [address] [place] [address] Assigned MTM Pharmacist 08/13/22 Billie Tucker, RN Specialty Per Diem Gastroenterology 12/10/22 Chantale Grande, PAC[facility]pinC [address] [place] [address] Physician Heel Breaster Dermatology 12/25/22 01/13/23 Paul Sanford MD [address] [place] [address] MD Gastroenterology 12/25/22 Paul Sanford MD [address] [place] [address] Referring Physician Gastroenterology 01/14/23 Jt Waters MD [address] [place] [address] Dermatology 01/14/23 Jt Waters MD [address] [place] [address] Assigned Surgical Provider 01/17/23 01/28/24 Bhavik Segura PA-C [address] [place], [place] [address] Physician Heel Breaster Gastroenterology 04/28/23 Paul Sanford MD [address] [place] [address] Assigned Gastroenterology Provider 07/18/23 Favian Mcknight MD [address] [place] [address] Dermatology 12/09/23 Favian Mcknight MD [address] [place] [address] Assigned Surgical Provider 01/29/24 documented as of this encounter
--- OUTSIDE RECORDS SUMMARY | 2024-06-14 19:50 | XMS_ITS | Encounter Summary ---
Author Organization [facility] Address [address] [place] [address] Care Team Providers Care Speech Professor Name Role Phone Sushant Schreiber MD Primary Care Provider No Ref-Primary, Physician Unavailable [phone] Cisco Caceres MD Unavailable [phone] Sabiha Hogan APRN STUDIO CAMERA OPERATOR Unavailable [phone] Yung Rodriguez MD Unavailable Tatianna Horne [facility] Unavailable [phone] Tatianna Horne [facility] Unavailable [phone] Tatianna Horne [facility] Unavailable [phone] Billie Tucker RN Unavailable Unavailable [place] PA-C Unavailable [phone] Paul Sanford MD Unavailable [phone] Paul Sanford MD Unavailable [phone] Jt Waters MD Unavailable Jt Waters MD Unavailable Bhavik Segura PA-C Unavailable [phone] Paul Sanford MD Unavailable [phone] Favian Mcknight MD Unavailable [phone] Favian Mcknight MD Unavailable [phone] Encounter Details Date Type Department Care Team (Late st Contact Info) Description 02/21/2022 MyC Medical Advice [facility] [place] [address] [facility] [address] [place] [address] Yung Rodriguez MD [address] [place] [address] Social History Tobacco Use Types Packs/Day Years [...] Description 06/15/2024 9:00 AM CDT Virtual Visit [facility] [address] [place] [address] Paul Sanford MD [address] [place] [address] [address] [address] documented as of this encounter Visit Diagnoses Not on filedocumented in this encounter Additional Health Concerns Infection Onset Date Last Indicated Resolved Time COVID-19 02/27/2022 02/27/2022 03/20/2022 11:3 9 PM CDT documented as of this encounter Care Teams Speech Professor Relationship Specialty Start Date End Date Sushant Schreiber MD [facility] [address] [place] [address] PCP - General Family Medicine 12/02/21 No Ref-Primary, Physician 12/02/21 Cisco Caceres MD [address] [place] [address]26[address] Fellow Gastroenterology 12/09/21 Sabiha Hogan APRN STUDIO CAMERA OPERATOR [address] [place], [place] [address] Assigned Heart and Vascular Provider 12/15/21 02/13/23 Yung Rodriguez MD [address] [place], [place] [address] Cardiovascular Disease 12/25/21 [facility] [address] [place] [address]13825 Pharmacist Pharmacist Scratcher 02/06/22 [facility] [address] [place] [address] 240785 Assigned MTM Pharmacist 04/12/22 Tatianna Horne [facility] [address] [place] [address] [id number] Assigned MTM Pharmacist 08/13/22 Billie Tucker, JANELL Specialty Dietetic Technician Registered Gastroenterology 12/10/22 Chantale Grande, PACrispinC [address] [place] [address] Physician Export Sales Assistant Dermatology 12/25/22 01/13/23 Paul Sanford MD [address] [place] [address] MD Gastroenterology 12/25/22 Paul Sanford MD [address] [place] [address] Referring Physician Gastroenterology 01/14/23 Jt Waters MD [address] [place] [address] Dermatology 01/14/23 Jt Waters MD [address] [place] [address] Assigned Surgical Provider 01/17/23 01/28/24 Bhavik Segura PA-C [address] [place] [address] Physician Export Sales Assistant Gastroenterology 04/28/23 Paul Sanford MD [address] [place] [address] Assigned Gastroenterology Provider 07/18/23 Favian Mcknight MD [address] [place] [address] Dermatology 12/09/23 Favian Mcknight MD [address] [place] [address] Assigned Surgical Provider 01/29/24 documented as of this encounter
--- OUTSIDE RECORDS SUMMARY | 2024-06-14 19:50 | XMS_ITS | Encounter Summary ---
Author Organization [facility] Address [address] [place] [address] Care Team Providers Care Product Test Engineer Name Role Phone Sushant Schreiber MD Primary Care Provider No Ref-Primary, Physician Unavailable [phone] Cisco Caceres MD Unavailable [phone] Sabiha Hogan APRN PARTS SALES COUNTERPERSON Unavailable +[phone] Yung Rodriguez MD Unavailable Tatianna Horne [facility] Unavailable [phone] Tatianna Horne [facility] Unavailable [phone] Tatianna Horne [facility] Unavailable [phone] Billie Tucker RN Unavailable Unavailable [place] PA-C Unavailable [phone] Paul Sanford MD Unavailable [phone] Paul Sanford MD Unavailable [phone] Jt Waters MD Unavailable Jt Waters MD Unavailable Bhavik Segura PA-C Unavailable [phone] Paul Sanford MD Unavailable [phone] Favian Mcknight MD Unavailable [phone] Favian Mcknight MD Unavailable [phone] Encounter Details Date Type Department Care Team (Late st Contact Info) Description 01/08/2022 Documentation Only INTERFACED REPORT Unknown, Provider Social History Tobacco Use Types Packs/Day Years Used Date Smoking Tobacco: Former Cigarettes Q uit: 05/01/2015 Smokeless Tobacco: Never Alcohol Use Standard Drinks/Week Comments Not Currently 0 (1 standard drink = 0.6 oz pur e alcohol) stop drinking 06/2020 Sex and Gender Information Value Date Recorded Sex Assigned at Not on file Gender Identity Not on file Sexual Orientation Not on file COVID-19 Exposure Response Date Recorded In the last month, have you been in contact with someone who was confirmed or suspected to have Coronavirus / COVID-19? No / Unsure 01/08/2022 8:25 AM NUTRITION AIDES TEACHER documented as of this encounter Plan of Treatment Upcoming Encounters Date Type Department Care Team (Late Contact Info) Description 06/15/2024 9:00 AM CDT Virtual Visit [facility] Cancer [address] [phone] Paul Sanford MD [address] [place] [address] [address] [address] documented as of this encounter Visit Diagnoses Not on filedocumented in this encounter Additional Health Concerns Infection Onset Date Last Indicated Resolved Time COVID-19 02/27/2022 02/27/2022 03/20/2022 11:3 9 PM CDT documented as of this encounter Care Teams Product Test Engineer Relationship Specialty Start Date End Date Sushant Schreiber MD [facility] - [address] [address] PCP - General Family Medicine 12/02/21 No Ref-Primary, Physician 12/02/21 Cisco Caceres MD [address] [place] [address] Fellow Gastroenterology 12/09/21 Sabiha Hogan APRN PARTS SALES COUNTERPERSON [address] [place] [address] Assigned Heart and Vascular Provider 12/15/21 02/13/23 Yung Rodriguez MD [address] [place] [address] Cardiovascular Disease 12/25/21 [facility] [address] [place] [address] Pharmacist Pharmacist Hvac Operations Technician 02/06/22 [facility] [address] [place] [address] Assigned MTM Pharmacist 04/12/22 [facility] [address] [place] [address] Assigned MTM Pharmacist 08/13/22 Billie Tucker, RN Specialty Ceo [employer] Gastroenterology 12/10/22 Chantale Grande [facility] [address] [place] [address] Physician Mold Press Operator Dermatology 12/25/22 01/13/23 Paul Sanford MD [address] [place] [address] Gastroenterology 12/25/22 Paul Sanford MD [address] [place] [address] Referring Physician Gastroenterology 01/14/23 Jt Waters MD [address] [place] [address] Dermatology 01/14/23 Jt Waters MD [address] [place] [address] Assigned Surgical Provider 01/17/23 01/28/24 Bhavik Segura PA-C [address] [place] [address] Physician Mold Press Operator Gastroenterology 04/28/23 Paul Sanford MD [address] [place] [address] Assigned Gastroenterology Provider 07/18/23 Favian Mcknight MD [address] [place] [address] Dermatology 12/09/23 Favian Mcknight MD [address] [place] [address] Assigned Surgical Provider 01/29/24 documented as of this encounter
--- OUTSIDE RECORDS SUMMARY | 2024-06-14 19:50 | XMS_ITS | Continuity of Care Document ---
Author Organization [facility] Address [address] [place] [address] Phone Care Team Providers Care Splunk Consultant Name Role Phone Marli MOCTEZUMA, Tadeo Unavailable Unavailable Allergies, Adverse Reactions, Alerts Substance Reaction Status Criticality HYDROCODONE BITARTRATE Nausea and vomiting Active No Information acetaminophen Nausea and vomiting Active No Info rmation Medications Medication Instructions Dosage Effective Dates (start - stop) Status Comments Medrol (Sulaiman) 4 mg tablets in a dose pack take by Oral route As Directed Not Available - Active cyclobenzaprine 10 mg tablet take 1 tablet by oral route up to 3 times every day as needed for pain/spasm. Do not drive while taking this medication. - Active REMICADE (unknown strength) Not Available - Active Procedures Procedure Date OFFICE/OUTPATIENT VISIT EST Phone Postop Followup Visit Re-do Lami/Discectomy, Lumbar HNP Lami, Facetectomy/Foraminotomy, Lumbar ( Stenosis) Lami, Facetectomy/Foraminotomy - Additio nal Level(s) - PA Lami, Facetectomy/Foraminotomy, Lumbar ( Stenosis) Lami, Facetectomy/Foraminotomy - Additio nal Level(s) Office/Outpatient Visit,Est, Mod 2021 Office/Outpatient Visit,New, Mod 2021 Advance Directives Directive Yes / No Effective Date File Name No Information Encounters Encounter Description Practice Location Reason(s) For Visit Diagnoses Date Provider Providers Copied on Encounter [facility], [address], [place], [id number], [place] tel:[phone] [facility] No Information 3 Calles Tadeo. [facility] [place], [address], [address], [place], [place], [id number] , [place]. tel:[phone] OFFICE/OUTPAT IENT VISIT EST Phone [facility], [address], [facility] [place], [id number], [place] tel:[phone] [facility] Radiculopathy, lumbar region 3 Panvica Issac. [facility] [place], [address] [place] [address], [address], [place], [place], [id number] , [place]. tel:[phone] Referring Provider: Angela Marlow, [facility] [address], [place], [address] . tel:[phone] [facility], [address], [facility] [place], [id number], [place] tel:[phone] [facility] Encounter for other specified surgical aftercare 2 Calles Tadeo. [facility] [place], [address] [place] [address], [address], [place], [place], [id number] , [place]. tel:[phone] Referring Provider: Angela Marlow, [facility] [address], [place], [address] . tel:[phone] [facility], [address], [facility] [place], [id number], [place] tel:[phone] [facility] No Information 2 Pia Wade. [facility] [place], [address], [place], [address], [place]. [phone] Referring Provider: Angela Marlow, [facility] [address], [place], [address] . tel:[phone] [facility], [address], [place], [id number], [place] tel:[phone] [facility] No Information 2 Calles Tadeo. [facility], [address], [address], [place], [place], [id number] , [place]. tel: [phone] [facility], [address], [place], [address], [place] tel:[phone] [facility] No Information 2 Panvica Issac. [facility], [address], [address], [place], [address] , [place]. tel:[phone] Referring Provider: Angela Marlow, [facility] [place] [address], [place], [address] . tel:[phone] [facility], [address], [place], [address], [place] tel:[phone] [facility] No Information 2 Calles Tadeo. [facility] [place], [address], [address], [facility], [address] , [place]. tel:[phone] Referring Provider: Angela Marlow, [facility] [place] [address], [place], [address] . tel:[phone] Office/Outpat ient Visit,Est, Mod [facility], [address], [place], [id number], [place] tel:[phone] [facility] - [facility] Other intervertebral disc displacement, lumbar regionSpinal stenosis, lumbar region with neurogenic claudication Feb- 2 Calles Tadeo. [facility] [place], [address], [address], [place], [address] , [place]. tel:[phone] Referring Provider: Angela Marlow, [facility] [place] [address], [place], [address] . tel:[phone] Office/Outpat ient Visit,New, Anastacio [facility], [address], [place], [id number], [place] tel:[phone] [facility] - [facility] Low back pain, unspecifiedRadi culopathy, lumbar region Apr-0 2 Asaf Miller. [facility], [address] [place] [address], [place], [place], [address] , [place]. tel:[phone] Referring Provider: Angela Marlow, [facility] [place] [address], [place], [address] . tel:[phone] Family History Family Member Type Diagnosis Age At Onset No Information Payers Payer name Insurance type Covered constitution party ID Authoriza tion(s) Med[employer] CI [id number] Social History Type Description Quantity Date Captured Comments Alcohol Use Details Unknown Caffeine Use Details Unknown Tobacco Use Status No Information Smoking Status No Information Sex Male Chief Complaint And Reason For Visit No Information Reason For Referral Reason For Referral No Information History Of Present Illness Encounter Date Complaint History Of Prese nt Illness No Information Functional Status Date Functional Assessmen t No Information Instructions Date Instruction Additional Infor mation No Information Assessments Type Assessment Date No Information Patient Care Teams Name Effective Dates (start - stop) Status Members No Information
--- OUTSIDE RECORDS SUMMARY | 2024-06-14 19:50 | XMS_ITS | Encounter Summary ---
Author Organization [place] Address [address] [place] [address] Care Team Providers Care Broomcorn Press Feeder Name Role Phone Sushant Schreiber MD Primary Care Provider No Ref-Primary, Physician Unavailable [phone] Cisco Caceres MD Unavailable [phone] Sabiha Hogan APRN VACUUM REPAIRER Unavailable [phone] Yung Rodriguez MD Unavailable Tatianna Horne [facility] Unavailable [phone] Tatianna Horne [facility] Unavailable [phone] Tatianna Horne [facility] Unavailable [phone] Billie Tucker RN Unavailable Unavailable [place] PA-C Unavailable [phone] Paul Sanford MD Unavailable [phone] Paul Sanford MD Unavailable [phone] Jt Waters MD Unavailable Jt Waters MD Unavailable Bhavik Segura PA-C Unavailable [phone] Paul Sanford MD Unavailable [phone] Favian Mcknight MD Unavailable [phone] Favian Mcknight MD Unavailable [phone] Encounter Details Date Type Department Care Team (Late st Contact Info) Description 12/03/2021 External Order Results formerly [facility] [address] [place] [address] Outside, Provider Social History Tobacco Use Types Packs/Day Years Used Date Smoking Tobacco: Every Day Cigarettes Alcohol Use Standard Drinks/Week Comments Yes 0 (1 standard drink = 0.6 oz pur e alcohol) occ Sex and Gender Information Value Date Recorded Sex Assigned at Not on file Gender Identity Not on file Sexual Orientation Not on file COVID-19 Exposure Response Date Recorded In the last month, have you been in contact with someone who was confirmed or suspected to have Coronavirus / COVID-19? No / Unsure 12/02/2021 4:20 PM MANAGER TRAFFIC documented as of this encounter Plan of Treatment Upcoming Encounters Date Type Department Care Team (Late st Contact Info) Description 06/15/2024 9:00 AM CDT Virtual Visit [facility] [address] [place] [phone] Paul Sanford MD [address] [place] [address] [address] [address] documented as of this encounter Visit Diagnoses Not on filedocumented in this encounter Additional Health Concerns Infection Onset Date Last Indicated Resolved Time COVID-19 02/27/2022 02/27/2022 03/20/2022 11:3 9 PM CDT documented as of this encounter Care Teams Broomcorn Press Feeder Relationship Specialty Start Date End Date Sushant Schreiber MD [facility] - [address] [address] PCP - General Family Medicine 12/02/21 No Ref-Primary, Physician 12/02/21 Cisco Caceres MD [address] [facility] [address] [place] [address] Fellow Gastroenterology 12/09/21 Sabiha Hogan APRN VACUUM REPAIRER [address] [place] [address] Assigned Heart and Vascular Provider 12/15/21 02/13/23 Yung Rodriguez MD [address] [place] [address] Cardiovascular Disease 12/25/21 [facility] [address] [place] [address] Pharmacist Pharmacist Preparer 02/06/22 [facility] [address] [place] [address] Assigned MTM Pharmacist 04/12/22 [facility] [address] [place] [address] Assigned MTM Pharmacist 08/13/22 Billie Tucker, JANELL Specialty Insurance Risk Surveyor Gastroenterology 12/10/22 Ch[place] [facility] [address] [place] [address] Physician Operational Trainer Dermatology 12/25/22 01/13/23 Paul Sanford MD [address] [place] [address] Gastroenterology 12/25/22 Paul Sanford MD [address] [place] [address] Referring Physician Gastroenterology 01/14/23 Jt Waters MD [address] [place] [address] Dermatology 01/14/23 Jt Waters MD [address] [place] [address] Assigned Surgical Provider 01/17/23 01/28/24 Bhavik Segura PA-C [address] [place] [address] Physician Operational Trainer Gastroenterology 04/28/23 Paul Sanford MD [address] [place] [address] Assigned Gastroenterology Provider 07/18/23 Favian Mcknight MD [address] [place] [address] Dermatology 12/09/23 Favian Mcknight MD [address] [place] [address] Assigned Surgical Provider 01/29/24 documented as of this encounter
--- OUTSIDE RECORDS SUMMARY | 2024-06-14 19:50 | XMS_ITS | Encounter Summary ---
Author Organization [place] Address [address] [place] [address] Care Team Providers Care Profile Mill Operator Tape Control Name Role Phone Sushant Schreiber MD Primary Care Provider [phone] No Ref-Primary, Physician Unavailable [phone] Cisco Caceres MD Unavailable [phone] Sabiha Hogan APRN POUNCER MACHINE Unavailable [phone] Yung Rodriguez MD Unavailable Tatianna Horne [facility] Unavailable [phone] Tatianna Horne [facility] Unavailable [phone] Tatianna Horne [facility] Unavailable [phone] Billie Tucker RN Unavailable Unavailable Chantale Grande PA-C Unavailable [phone] Paul Sanford MD Unavailable [phone] Paul Sanford MD Unavailable [phone] Jt Waters MD Unavailable Jt Waters MD Unavailable Bhavik Segura PA-C Unavailable [phone] Paul Sanford MD Unavailable [phone] Favian Mcknight MD Unavailable [phone] Favian Mcknight MD Unavailable [phone] Encounter Details Date Type Department Care Team (Late st Contact Info) Description 02/17/2022 MyC Medical Advice [facility] Gastroenterology Clinic [address] [address] Michelle Enamorado RN Social History [...] AM CDT Virtual Visit [facility] [address] [phone] Paul Sanford MD [address] [place] [address] [address] [address] documented as of this encounter Visit Diagnoses Not on filedocumented in this encounter Additional Health Concerns Infection Onset Date Last Indicated Resolved Time COVID-19 02/27/2022 02/27/2022 03/20/2022 11:3 9 PM CDT documented as of this encounter Care Teams Profile Mill Operator Tape Control Relationship Specialty Start Date End Date Sushant Schreiber MD [address] [address] PCP - General Family Medicine 12/02/21 No Ref-Primary, Physician 12/02/21 Cisco Caceres MD [address] [place] [address] Fellow Gastroenterology 12/09/21 Sabiha Hogan APRN POUNCER MACHINE [address] [place], [place] [address]195 Assigned Heart and Vascular Provider 12/15/21 02/13/23 Yung Rodriguez MD [address] [facility] [address] [place] [address] Cardiovascular Disease 12/25/21 [facility] [address] [place] [address] Pharmacist Pharmacist Wound Care Center Consultant 02/06/22 [facility] [address] [place] [address] Assigned MTM Pharmacist 04/12/22 [facility] [address] [place] [address] Assigned MTM Pharmacist 08/13/22 Billie Tucker, RN Specialty Rib Knitter Gastroenterology 12/10/22 Chantale Grande, PACrispinC [address] [place] [address] Physician Jar Capper Dermatology 12/25/22 01/13/23 Paul Sanford MD [address] [place] [address] MD Gastroenterology 12/25/22 Paul Sanford MD [address] [place] [address] Referring Physician Gastroenterology 01/14/23 Jt Waters MD 500 [place] [address] Dermatology 01/14/23 Jt Waters MD [address] [place] [address] Assigned Surgical Provider 01/17/23 01/28/24 Bhavik Segura PA-C [address] [place], [place] 663185 Physician Jar Capper Gastroenterology 04/28/23 Paul Sanford MD [address] [place] [address] Assigned Gastroenterology Provider 07/18/23 Favian Mcknight MD 9 [place] [address] Dermatology 12/09/23 Favian Mcknight MD [address] [place] [address] Assigned Surgical Provider 01/29/24 documented as of this encounter
--- OUTSIDE RECORDS SUMMARY | 2024-06-14 19:50 | XMS_ITS | Encounter Summary ---
Author Organization [facility] Address [address] [place] [address] Care Team Providers Care Business Specialist Name Role Phone Sushant Schreiber MD Primary Care Provider [phone] No Ref-Primary, Physician Unavailable [phone] Cisco Caceres MD Unavailable [phone] Sabiha Hogan APRN EDUCATIONAL ADVISER Unavailable [phone] Yung Rodriguez MD Unavailable Tatianna Horne [facility] Unavailable [phone] [facility] Unavailable [phone] [facility] Unavailable [phone] Billie Tucker RN Unavailable Unavailable Chantale Grande PA-C Unavailable [phone] Paul Sanford MD Unavailable [phone] Paul Sanford MD Unavailable [phone] Jt Waters MD Unavailable Jt Waters MD Unavailable Bhavik Segura PA-C Unavailable [phone] Paul Sanford MD Unavailable [phone] Favian Mcknight MD Unavailable [phone] Favian Mcknight MD Unavailable [phone] Encounter Details Date Type Department Care Team (Late Contact Info) Description 01/29/[address] [facility] Gastroenterology Clinic [address] [place] [address] Michelle Enamorado RN Social History Tobacco [...] AM CDT documented as of this encounter Miscellaneous Notes * Telephone Encounter - Michelle Enamorado RN - 01/31/2022 2:03 PM CDT Will work on Prior increasing the dose to 7.5 mg/kg for the infusion documented in this encounter Plan of Treatment Upcoming Encounters Date Type Department Care Team (Late Contact Info) Description 06/15/2024 9:00 AM CDT Virtual Visit [facility] [address] [place] [address] Paul Sanford MD [address] [place] [address] [phone] Tatianna Horne [address] 657365 documented as of this encounter Visit Diagnoses Not on filedocumented in this encounter Additional Health Concerns Infection Onset Date Last Indicated Resolved Time COVID-19 02/27/2022 02/27/2022 03/20/2022 11:3 9 PM CDT documented as of this encounter Care Teams Business Specialist Relationship Specialty Start Date End Date Sushant Schreiber MD [facility] & [address] [address] PCP - General Family Medicine 12/02/21 No Ref-Primary, Physician 12/02/21 Cisco Caceres MD [address] [place] [address] [phone] Fellow Gastroenterology 12/09/21 Sabiha Hogan APRN EDUCATIONAL ADVISER [address] [place] 694475 Assigned Heart and Vascular Provider 12/15/21 02/13/23 Yung Rodriguez MD [address] [place], [place] 8089[address] Cardiovascular Disease 12/25/[address] [facility] [address] [place] [address] [phone] Pharmacist Pharmacist Dipper Clock And Watch Hands 02/06/[address] [facility] [address] [place] [address] [phone] Assigned MTM Pharmacist 04/12/[address] [facility] [address] [place] [address] Assigned MTM Pharmacist 08/13/22 Billie Tucker, RN Specialty Mirror Framer Gastroenterology 12/10/22 Chantale Grande PA-C [address] [place] [address] Physician Traffic Lieutenant Dermatology 12/25/22 01/13/23 Paul Sanford MD 500 [place] [address] MD Gastroenterology 12/25/22 Paul Sanford MD [address] [place] [address] Referring Physician Gastroenterology 01/14/23 tJ Waters MD 500 [place] [address] MD Dermatology 01/14/23 Jt Waters MD 500 [place] [address] Assigned Surgical Provider 01/17/23 01/28/24 Bhavik Segura PA-C [address] [place], [place] 970335 Physician Traffic Lieutenant Gastroenterology 04/28/23 Paul Sanford MD [address] [place], [place] 899715 Assigned Gastroenterology Provider 07/18/23 Favian Mcknight MD [address] [place], [place] 115265 Dermatology 12/09/23 Favian Mcknight MD 9 [place] [address] Assigned Surgical Provider 01/29/24 documented as of this encounter
--- OUTSIDE RECORDS SUMMARY | 2024-06-14 19:50 | XMS_ITS | Encounter Summary ---
Author Organization [facility] Address [address] [place] [address] Care Team Providers Care Final Inspector And Tester Name Role Phone Ambreen uSresh MD Primary Care Provider No Ref-Primary, Physician Primary Care Provider Sushant Schreiber MD Primary Care Provider [phone] No Ref-Primary, Physician Unavailable [phone] Cisco Caceres MD Unavailable [phone] Sabiha Hogan APRN PERSONNEL CONSULTANT Unavailable +[phone] Yung Rodriguez MD Unavailable Tatianna Horne [facility] Unavailable [phone] Tatianna Horne [facility] Unavailable [phone] Tatianna Horne [facility] Unavailable [phone] Billie Tucker RN Unavailable Unavailable Chantale GrandeC Unavailable [phone] Paul Sanford MD Unavailable [phone] Paul Sanford MD Unavailable [phone] Jt Waters MD Unavailable Jt Waters MD Unavailable Bhavik SeguraC Unavailable [phone] Paul Sanford MD Unavailable [phone] Favian Mcknight MD Unavailable [phone] Favian Mcknight MD Unavailable [phone] Encounter Details Date Type Department Care Team (Late Contact Info) Description 06/28/[address] [phone] Julio Pierson MD [address] [place] [address] [phone] [facility] Social History Tobacco Use Types Packs/Day Years [...] Visit [facility] [address] [place] [phone] Paul Sanford MD [address] [place] [address] [address] [address] documented as of this encounter Visit Diagnoses Not on filedocumented in this encounter Additional Health Concerns Infection Onset Date Last Indicated Resolved Time Rule Out COVID-19 12/02/2021 12/02/2021 12/02/2021 5:53 PM PETROLEUM SUPPLY SPECIALIST COVID-19 02/27/2022 02/27/2022 03/20/2022 11:3 9 PM CDT documented as of this encounter Care Teams Final Inspector And Tester Relationship Specialty Start Date End Date Ambreen Suresh MD [address] [place] [address] PCP - General 07/07/03 02/21/13 No Ref-Primary, Physician PCP - General 02/22/13 12/01/21 Sushant Schreiber MD [facility] [facility] - [address] [address] PCP - General Family Medicine 12/02/21 No Ref-Primary, Physician 12/02/21 Cisco Caceres MD [address] [place] [address] Fellow Gastroenterology 12/09/21 Sabiha Hogan APRN PERSONNEL CONSULTANT [address] [place] [address] Assigned Heart and Vascular Provider 12/15/21 02/13/23 Yung Rodriguez MD [address] [facility] [address] [place] [address] Cardiovascular Disease 12/25/21 Tatianna Horne [facility] [address] [place] [address] Pharmacist Pharmacist Terrazzo Finisher 02/06/22 Tatianna Horne [facility] [address] [place] [address] Assigned MTM Pharmacist 04/12/22 Tatianna Horne [facility] [address] [place] [address] Assigned [place] Pharmacist 08/13/22 Billie Tucker, RN Specialty Loaders Gastroenterology 12/10/22 Chantale Grande PA-C [address] [place] [address] Physician Powerhouse Mechanic Apprentice Dermatology 12/25/22 01/13/23 Paul Sanford MD [address] [place], [place] [address]85 MD Gastroenterology 12/25/22 Paul Sanford MD [address] [place], [place] 369245 Referring Physician Gastroenterology 01/14/23 Jt Waters MD [address] [place], [place] 649725 MD Dermatology 01/14/23 Jt Waters MD [address] [place] [address] Assigned Surgical Provider 01/17/23 01/28/24 Bhavik Segura PA-C [address] [place], [place] 0[address]95 Physician Powerhouse Mechanic Apprentice Gastroenterology 04/28/23 Paul Sanford MD [address] [place] [address] Assigned Gastroenterology Provider 07/18/23 Favian Mcknight MD [address] [place] [address] Dermatology 12/09/23 Favian Mcknight MD [address] [place] [address] Assigned Surgical Provider 01/29/24 documented as of this encounter
--- NOTE | 2024-07-12 08:14 | W.PM.SLEEP ---
Sleep Study Details Details Interpreting Provider: Josh Date of Sleep Study: 06/14/24 Sleep Study Details: STUDY TYPE:? Home unattended ? BMI:? 39 ORDERING PROVIDER:? Abdoul INDICATION:? Concern about sleep apnea ? SLEEP SUMMARY:? 363 minutes monitored RESPIRATORY SUMMARY:? AHI 21.8, supine AHI 39, left lateral 23.5, right lateral 13.6, prone 5 Low oxygen 81 5.7% of study oxygen less than 90% Snoring 73% PERIODIC LIMB MOVEMENTS OF SLEEP:? Not recorded CARDIAC:? Range 53-99, mean 65.9 IMPRESSION:? Moderate obstructive sleep apnea with supine position dependency RECOMMENDATION: Treatment options include CPAP dental appliance weight loss and/or airway expansion surgery.
== END 2024-06-14 19:43 | disposition home or self-care (01) ==
PROVIDERS: PCP Family Medicine; Visit Provider Family Medicine
DX: G47.33 Obstructive sleep apnea (adult) (pediatric) (principal)
CPT/HCPCS: 95806

== ENCOUNTER 2024-12-22 04:54 | Emergency (ER) | payer OTHER, SELFPAY ==
--- OUTSIDE RECORDS SUMMARY | 2024-12-22 04:56 | XMS_ITS | Encounter Summary ---
Author Organization [facility] Address [address] [place] [address] Care Team Providers Care Director Of Software Engineering Name Role Phone Sushant Schreiber MD Primary Care Provider No Ref-Primary, Physician Unavailable [phone] Cisco Caceres MD Unavailable [phone] Sabiha Hogan APRN HELIOTHERAPIST Unavailable [phone] Yung Rodriguez MD Unavailable Tatianna Horne [facility] Unavailable [phone] Tatianna Horne [facility] Unavailable [phone] Tatianna Horne [facility] Unavailable [phone] Billie Tucker RN Unavailable Unavailable Chantale Grande PA-C Unavailable [phone] Paul Sanford MD Unavailable Paul Sanford MD Unavailable Jt Waters MD Unavailable Jt Waters MD Unavailable Bhavik Segura PA-C Unavailable [phone] Paul Sanford MD Unavailable Favian Mcknight MD Unavailable [phone] Favian Mcknight MD Unavailable [phone] Tatianna Horne [facility] Unavailable Lyudmila Baltazar RN Unavailable Unavailabl e Encounter Details Date Type Department Care Team (Late st Contact Info) Description 06/09/2022 Home Infusion ([facility]) [facility] [address] [place] [phone] Josue Hedrick RN Social History Tobacco Use Types Packs/Day Years Used Date Smoking Tobacco: Former Cigarettes Q uit: 05/01/2015 Smokeless Tobacco: Never Alcohol Use Standard Drinks/Week Comments Not Currently 0 (1 standard drink = 0.6 oz pur e alcohol) stop drinking 06/2020 PHQ-2 Answer Date Recorded PHQ-2 Score 2 04/01/2022 Sex and Gender Information Value Date Recorded Sex Assigned at Not on file Legal 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 POLE 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 Gender Identity Not on file Sexual Orientation [...] Care Team (Late st Contact Info) Description 01/12/2025 10:00 AM POLE CLIMBER Office Visit [facility] Gastroenterology Clinic [address] [place] [phone] Paul Sanford MD [address] [place] [address] 740305 documented as of this encounter Visit Diagnoses Not on filedocumented in this encounter Care Teams Director Of Software Engineering Relationship Specialty Start Date End Date Sushant Schreiber MD [address] [address] PCP - General Family Medicine 12/02/21 No Ref-Primary, Physician 12/02/21 Cisco Caceres MD [address] [place] [address] 054575 Fellow Gastroenterology 12/09/21 Sabiha Hogan APRN HELIOTHERAPIST [address] [place] 631025 Assigned Heart and Vascular Provider 12/15/21 02/13/23 Yung Rodriguez MD [address] [place], [place] 0[address] Cardiovascular Disease 12/25/21 Tatianna Horne [facility] [address] [place] [address] 596155 Pharmacist Pharmacist Front Desk Supervisor 02/06/22 Tatianna Horne [facility] [address] [place] [address] [phone] Assigned MTM Pharmacist 04/12/22 Tatianna Horne [facility] [address] [place] [address] 227545 Assigned MTM Pharmacist 08/13/22 Billie Tucker, RN Specialty Urban Planning Teacher Gastroenterology 12/10/22 Chantale Grande PA-C [address] [place] [address] Physician Remote Advisor Dermatology 12/25/22 01/13/23 Paul Sanford MD [address] [place] [address] MD Gastroenterology 12/25/22 Paul Sanford MD [address] [place] [address] Referring Physician Gastroenterology 01/14/23 Jt Waters MD [address] [place] [address] MD Dermatology 01/14/23 Jt Waters MD [address] [place] [address] Assigned Surgical Provider 01/17/23 01/28/24 Bhavik Segura PA-C [address] [place] [address] Physician Remote Advisor Gastroenterology 04/28/23 Paul Sanford MD [address] [place] [address] Assigned Gastroenterology Provider 07/18/23 Favian Mcknight MD [address] [place] [address] Dermatology 12/09/23 Favian Mcknight MD [address] [place], [place] 442185 Assigned Surgical Provider 01/29/24 Tatianna Horne [facility] [address] [place], [place] 052325 Assigned MTM Pharmacist 07/08/24 Lyudmila Baltazar, RN Home Infusion Porter Luggage 08/29/24 documented as of this encounter
--- OUTSIDE RECORDS SUMMARY | 2024-12-22 04:56 | XMS_ITS | Encounter Summary ---
Author Organization [place] Address [address] [place] [address] Care Team Providers Care Inorganic Chemistry Teacher Name Role Phone Sushant Schreiber MD Primary Care Provider No Ref-Primary, Physician Unavailable [phone] Cisco Caceres MD Unavailable [phone] Yung Rodriguez MD Unavailable Tatianna Horne [facility] Unavailable [phone] Billie Tucker RN Unavailable Unavailable Paul Sanford MD Unavailable [phone] Paul Sanford MD Unavailable [phone] Jt Waters MD Unavailable Bhavik Segura PA-C Unavailable [phone] Paul Sanford MD Unavailable [phone] Favian Mcknight MD Unavailable [phone] Favian Mcknight MD Unavailable [phone] Tatianna Horne [facility] Unavailable [phone] Lyudmila Baltazar RN Unavailable Unavailabl e Reason for Visit * Reason Onset Date Comments Appointment 11/14/2024 Encounter Details Date Type Department Care Team (Late st Contact Info) Description 11/14/2024 Telephone [facility] Gastroenterology Clinic [address] 4th [place] [address] Paula Jane PA-C [address] [place] [address] Appointment Social History Tobacco Use Types Packs/Day [...] on file Legal 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 Specialty phone number: [phone] Additional appointment(s) needed: Additonal Notes: STRIAL MECHANIC documented in this encounter Plan of Treatment Upcoming Encounters Date Type Department Care Team (Late st Contact Info) Description 01/12/2025 10:00 AM INDUSTRIAL MECHANIC Office Visit [facility] Gastroenterology Clinic [address] [place] [address] Paul Sanford MD [address] [place] [address] documented as of this encounter Visit Diagnoses Not on filedocumented in this encounter Care Teams Inorganic Chemistry Teacher Relationship Specialty Start Date End Date Sushant Schreiber MD [facility] [address] [place] [address] PCP - General Family Medicine 12/02/21 No Ref-Primary, Physician 12/02/21 Cisco Caceres MD [address] [place] [address] 838135 Fellow Gastroenterology 12/09/21 Yung Rodriguez MD [address] , [facility] [address] [place], [place] 5570[address] Cardiovascular Disease 12/25/21 Tatianna Horne, [facility] [address] [place] [address] [phone] Pharmacist Pharmacist Engagement Executive 02/06/22 Billie Tucker, RN Specialty Brand Recorder Gastroenterology 12/10/22 Paul Sanford MD [address] [place] [address] Gastroenterology 12/25/22 Paul Sanford MD [address] [place] [address] Referring Physician Gastroenterology 01/14/23 Jt Waters MD [address] [place] [address] 186645 Dermatology 01/14/23 Bhavik Segura PA-C [address] [place] [address] 701295 Physician Principal Android Developer Gastroenterology 04/28/23 Paul Sanford MD [address] [place] [address] 240935 Assigned Gastroenterology Provider 07/18/23 Favian Mcknight MD [address] [place], [place] 965665 Dermatology 12/09/23 Favian Mcknight MD [address] [place], [place] 305005 Assigned Surgical Provider 01/29/24 Tatianna Horne [facility] [address] [place] [address] [phone] Assigned MTM Pharmacist 07/08/24 Lyudmila Baltazar, RN Home Infusion Deputy Grand Jury 08/29/24 documented as of this encounter
--- OUTSIDE RECORDS SUMMARY | 2024-12-22 04:56 | XMS_ITS | Encounter Summary ---
Author Organization [place] Address [address] [place] [address] Care Team Providers Care Decision Analyst Name Role Phone Sushant Schreiber MD Primary Care Provider No Ref-Primary, Physician Unavailable [phone] Cisco Caceres MD Unavailable [phone] Yung Rodriguez MD Unavailable Tatianna Horne [facility] Unavailable [phone] Billie Tucker RN Unavailable Unavailable Paul Sanford MD Unavailable [phone] Paul Sanford MD Unavailable [phone] Jt Waters MD Unavailable Bhavik Segura PA-C Unavailable [phone] Paul Sanford MD Unavailable [phone] Favian Mcknight MD Unavailable [phone] Favian Mcknight MD Unavailable [phone] Tatianna Horne [facility] Unavailable [phone] Lyudmila Baltazar RN Unavailable Unavailabl e Reason for Visit * Reason Onset Date Comments Appointment 11/17/2024 Encounter Details Date Type Department Care Team (Late st Contact Info) Description 11/17/2024 Telephone [facility] Gastroenterology Clinic [address]th [place] [address] Paula Jane PA-C [address] [place] [address] Appointment Social History Tobacco Use Types Packs/Day [...] on file Legal 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 PRODUCT PROMOTER SALES PERSON Gender Identity Not on file Sexual Orientation Not on file documented as of this encounter Miscellaneous Notes * Telephone Encounter - Mary Davis - 11/17/2024 11:38 AM CST Left Voicemail (2nd Attempt) no VM for the patient to call back and schedule the following: Appointment type: Return Provider: Paula Jane Return date: Next Available Specialty phone number: [phone] Additional appointment(s) needed: Additonal Notes: UCT PROMOTER SALES PERSON documented in this encounter Plan of Treatment Upcoming Encounters Date Type Department Care Team (Late st Contact Info) Description 01/12/2025 10:00 AM PRODUCT PROMOTER SALES PERSON Office Visit [facility] Gastroenterology Clinic [address] [place] [address] Paul Sanford MD [address] [place] [address] documented as of this encounter Visit Diagnoses Not on filedocumented in this encounter Care Teams Decision Analyst Relationship Specialty Start Date End Date Sushant Schreiber MD [facility] [address] [place] [address] PCP - General Family Medicine 12/02/21 No Ref-Primary, Physician 12/02/21 Cisco Caceres MD [address] [place] [address] 579155 Fellow Gastroenterology 12/09/21 Yung Rodriguez MD [address] , [facility] [address] [place] [address] Cardiovascular Disease 12/25/21 Tatianna Horne, [facility] [address] [place] [address] [phone] Pharmacist Pharmacist Fire Prevention Specialist 02/06/22 Billie Tucker, RN Specialty Cork Grinder Gastroenterology 12/10/22 Paul Sanford MD [address] [place] [address] MD Gastroenterology 12/25/22 Paul Sanford MD [address] [place] [address] Referring Physician Gastroenterology 01/14/23 Jt Waters MD [address] [place] [address] Dermatology 01/14/23 Bhavik Segura PA-C [address] [place] [address] 201105 Physician Clamp Jig Assembler Gastroenterology 04/28/23 Paul Sanford MD [address] [place] [address] Assigned Gastroenterology Provider 07/18/23 Favian Mcknight MD [address] [place], [place] 463305 Dermatology 12/09/23 Favian Mcknight MD [address] [place] [address] 889045 Assigned Surgical Provider 01/29/24 Tatianna Horne [facility] [address] [place] [address] [phone] Assigned MTM Pharmacist 07/08/24 Lyudmila Baltazar, RN Home Infusion Procedures Nurse 08/29/24 documented as of this encounter
--- OUTSIDE RECORDS SUMMARY | 2024-12-22 04:56 | XMS_ITS | Encounter Summary ---
Author Organization [facility] Address [address] [place] [address] Care Team Providers Care Manager Sustainability Name Role Phone Sushant Schreiber MD Primary Care Provider No Ref-Primary, Physician Unavailable [phone] Cisco Caceres MD Unavailable [phone] Yung Rodriguez MD Unavailable Tatianna Horne [facility] Unavailable [phone] Billie Tucker RN Unavailable Unavailable Paul Sanford MD Unavailable [phone] Paul Sanford MD Unavailable [phone] Jt Waters MD Unavailable Jt Waters MD Unavailable Bhavik Segura PA-C Unavailable [phone] Paul Sanford MD Unavailable [phone] Favian Mcknight MD Unavailable [phone] Favian Mcknight MD Unavailable [phone] Tatianna Horne [facility] Unavailable [phone] Lyudmila Baltazar RN Unavailable Unavailabl e Encounter Details Date Type Department Care Team (Late st Contact Info) Description 11/11/2023 [facility] [address] 4th [place] [address] Hang, Allison Social History Tobacco Use Types Packs/Day Years [...] on file Legal 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 OCCUPATIONAL PHYSICIAN Gender Identity Not on file Sexual Orientation Not on file documented as of this encounter Plan of Treatment Upcoming Encounters Date Type Department Care Team (Late st Contact Info) Description 01/12/2025 10:00 AM OCCUPATIONAL PHYSICIAN Office Visit [facility] [address] [phone] Paul Sanford MD [address] [place] [address] 372125 documented as of this encounter Visit Diagnoses Not on filedocumented in this encounter Care Teams Manager Sustainability Relationship Specialty Start Date End Date Sushant Schreiber MD [facility] [address] [place] [address] PCP - General Family Medicine 12/02/21 No Ref-Primary, Physician 12/02/21 Cisco Caceres MD [address] [place] [address] 284 [place], [place] 0[address] Fellow Gastroenterology 12/09/21 Yung Rodriguez MD [address] [facility] [address] [place], [place] 6665[address] Cardiovascular Disease 12/25/21 Tatianna Horne, [facility] [address] [place] [address] Pharmacist Pharmacist Billing Services Manager 02/06/22 Billie Tucker, RN Specialty Engraver Gastroenterology 12/10/22 Paul Sanford MD [address] [place] [address] Gastroenterology 12/25/22 Paul Sanford MD [address] [place] [address] 36907 Referring Physician Gastroenterology 01/14/23 Jt Waters MD [address] [place] [address] 27035 Dermatology 01/14/23 Jt Waters MD [address] [place] [address] 44971 Assigned Surgical Provider 01/17/23 01/28/24 Bhavik Segura PA-C [address] [place] [address] 18434 Physician Book Publisher Gastroenterology 04/28/23 Paul Sanford MD [address] [place] [address] 38278 Assigned Gastroenterology Provider 07/18/23 Favian Mcknight MD [address] [place] [address]47 Dermatology 12/09/23 Favian Mcknight MD [address] [place] [address] 95457 Assigned Surgical Provider 01/29/24 Tatianna Horne [facility] [address] [place] [address] Assigned MTM Pharmacist 07/08/24 Lyudmila Baltazar, RN Home Infusion Fish Hatchery Man 08/29/24 documented as of this encounter
--- OUTSIDE RECORDS SUMMARY | 2024-12-22 04:56 | XMS_ITS | Encounter Summary ---
Author Organization [place] Address [address] [place] [address] Care Team Providers Care Pear Picker Name Role Phone Sushant Schreiber MD Primary Care Provider No Ref-Primary, Physician Unavailable [phone] Cisco Caceres MD Unavailable [phone] Yung Rodriguez MD Unavailable Tatianna Horne [facility] Unavailable [phone] Billie Tucker RN Unavailable Unavailable Paul Sanford MD Unavailable [phone] Paul Sanford MD Unavailable [phone] Jt Waters MD Unavailable Jt Waters MD Unavailable Bhavik Segura PA-C Unavailable [phone] Paul Sanford MD Unavailable [phone] Favian Mcknight MD Unavailable [phone] Favian Mcknight MD Unavailable [phone] Tatianna Horne [facility] Unavailable [phone] Lyudmila Baltazar RN Unavailable Unavailabl e Encounter Details Date Type Department Care Team (Late st Contact Info) Description 11/02/2023 [facility] [address] 4th [place] [address] [facility] Social History Tobacco Use Types Packs/Day Years [...] on file Legal 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 SUPERVISORY CBP OFFICER Gender Identity Not on file Sexual Orientation Not on file documented as of this encounter Plan of Treatment Upcoming Encounters Date Type Department Care Team (Late st Contact Info) Description 01/12/2025 10:00 AM SUPERVISORY CBP OFFICER Office Visit [facility] Gastroenterology Clinic [address] [phone] Paul Sanford MD [address] [place] [address] 539325 documented as of this encounter Visit Diagnoses Not on filedocumented in this encounter Care Teams Pear Picker Relationship Specialty Start Date End Date Sushant Schreiber MD [facility] [address] [place] [address] PCP - General Family Medicine 12/02/21 No Ref-Primary, Physician 12/02/21 Cisco Caceres MD [address] [place] [address] [address] [place], [place] 227095 Fellow Gastroenterology 12/09/21 Yung Rodriguez MD [address] [facility] [address] [place], [place] 3430[address] Cardiovascular Disease 12/25/21 Tatianna Horne, [facility] [address] [place] [address] Pharmacist Pharmacist Materials Management Manager 02/06/22 Billie Tucker, RN Specialty Child Development Specialist Gastroenterology 12/10/22 Paul Sanford MD [address] [place] [address] Gastroenterology 12/25/22 Paul Sanford MD [address] [place] [address] 57705 Referring Physician Gastroenterology 01/14/23 Jt Waters MD [address] [place] [address] Dermatology 01/14/23 Jt Waters MD [address] [place] [address]8531 Assigned Surgical Provider 01/17/23 01/28/24 Bhavik Segura PA-C [address] [place] [address] Physician Shank Archer Gastroenterology 04/28/23 Paul Sanford MD [address] [place] [address]99 Assigned Gastroenterology Provider 07/18/23 Favian Mcknight MD [address] [place] [address]118 Dermatology 12/09/23 Favian Mcknight MD [address] [place] [address]3625 Assigned Surgical Provider 01/29/24 Tatianna Horne [facility] [address] [place], [place] 8084[address] Assigned MTM Pharmacist 07/08/24 Lyudmila Baltazar, RN Home Infusion Vice President Underwriting 08/29/24 documented as of this encounter
--- OUTSIDE RECORDS SUMMARY | 2024-12-22 04:56 | XMS_ITS | Continuity of Care Document ---
Author Organization [facility] Address [address] [place] [address] Phone Care Team Providers Care Carbide Operator Name Role Phone Marli MOCTEZUMA, Tadeo Unavailable [...] C, [address], [place], [id number], [place] tel:[phone] [facility] No Information 3 Calles Tadeo. [facility] [place], [address], [address], [place], [place], [id number] , [place]. tel:[phone] OFFICE/OUTPAT IENT VISIT EST Phone [facility], [address], [facility] [place], [address], [place] tel:[phone] [facility] Radiculopathy, lumbar region 3 Panvica Issac. [facility], [address] [place] [address], [address], [place], [place], [id number] , [place]. tel:[phone] Referring Provider: Angela Marlow, [facility] [address], [facility] [place], [address] . tel:[phone] [facility], [address], [facility] [place], [address], [place] tel:[phone] [facility] Encounter for other specified surgical aftercare 2 Calles Tadeo. [facility], [address] [place] [address], [address], [place], [place], [address] , [place]. tel:[phone] Referring Provider: Angela Marlow, [facility] [address], [place], [address] . tel:[phone] [facility], [address], [facility] [place], [address], [place] tel:[phone] [facility] No Information 2 Pia Wade. [facility] [place], [address], [place], [address], [place]. [phone] Referring Provider: Angela Marlow, [facility] [address], [place], [address] . tel:[phone] [facility], [address], [place], [id number], [place] tel:[phone] [facility] No Information 2 Calles Tadeo. [facility], [address], [address], [place], [address] , [place]. tel: [phone] [facility], [address], [place], [address], [place] tel:[phone] [facility] No Information 2 Panvica Issac. [facility], [address], [address], [place], [address] , [place]. tel:[phone] Referring Provider: Angela Marlow, [facility] [address], [place], [address] . tel:[phone] [facility], [address], [place], [address], [place] tel:[phone] [facility] No Information 2 Calles Tadoe. [facility], [address], [address], [facility] [place], [address] , [place]. tel:[phone] Referring Provider: Angela Marlow, [facility] [address], [place], [address] . tel:[phone] Office/Outpat ient Visit,Est, Mod [facility], [address], [place], [address], [place] tel:[phone] [facility] Other intervertebral disc displacement, lumbar regionSpinal stenosis, lumbar region with neurogenic claudication Feb- 2 Calles Tadeo. [facility], [address], [address], [place], [address] , [place]. tel:[phone] Referring Provider: Angela Marlow, [facility] [address], [place], [address] . tel:[phone] Office/Outpat ient Visit,New, Anastacio [facility], [address], [place], [id number], [place] tel:[phone] [facility] Low back pain, unspecifiedRadi culopathy, lumbar region Apr-0 2 Asaf Miller. [facility], [address] [place] [address] 600, [place], [place], [address] , [place]. tel:[phone] Referring Provider: Angela Marlow, [facility] [address], [facility] [place], [address] . tel:[phone] Family History Family Member Type Diagnosis Age At Onset No Information Payers Payer name Insurance type Covered libertarian ID Authoriza tion(s) [employer] CI [id number] Social History Type Description Quantity Date Captured [...]
--- OUTSIDE RECORDS SUMMARY | 2024-12-22 04:56 | XMS_ITS | Encounter Summary ---
Author Organization [facility] Address [address] [place] [address] Care Team Providers Care Ethnoarchaeology Professor Name Role Phone Sushant Schreiber MD Primary Care Provider No Ref-Primary, Physician Unavailable [phone] Cisco Caceres MD Unavailable [phone] Yung Rodriguez MD Unavailable Tatianna Horne [facility] Unavailable [phone] Billie Tucker RN Unavailable Unavailable Paul Sanford MD Unavailable [phone] Paul Sanford MD Unavailable [phone] Jt Waters MD Unavailable Bhavik Segura PA-C Unavailable [phone] Paul Sanford MD Unavailable [phone] Favian Mcknight MD Unavailable [phone] Favian Mcknight MD Unavailable [phone] Tatianna Horne [facility] Unavailable [phone] Lyudmila Baltazar RN Unavailable Unavailabl e Encounter Details Date Type Department Care Team (Late st Contact Info) Description 11/14/2024 Telephone [facility] Gastroenterology Clinic [address] 4th [place] [address] Billie Tucker, RN Social History [...] on file 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 Mcintyre/Dr. Sanford on 08/30/24: TODAY'S PLAN: -- continue IFX 10mg/kg q 8 weeks and AZA Inflectra therapy plan orders ; plan has been updated. Patient remains on the same medication regimen 10mg/kg q 8 weeks with [facility]. Continues to receive pre-medications: Tylenol, Benadryl, and Solu-medrol. Standing lab orders placed. TB Quantiferon Gold due next month. Order placed. Hepatitis B serologies are up to date. Next office visit not yet scheduled. Inbasket sent to clinic coordinators requesting assistance with scheduling follow up. ER LOADER * Telephone Encounter - Billie Tucker RN - 11/14/2024 12:34 PM CST ----- Message from Billie Lundberg sent at 11/14/2024 10:47 AM FEEDER LOADER ----- Regarding: FW: Inflectra renewal needed ----- Message ----- From: Rosey Krishna RPH Sent: 11/14/2024 10:12 AM FEEDER LOADER To: [facility] Ibd Nurses Subject: Inflectra renewal needed Hello, Patients orders will be expiring soon. Is it OK for [facility] to renew our current Inflectra orders for another year? Thank you, Rosey Krishna, PharmD Clinical Pharmacist [facility] Office: ER LOADER documented in this encounter Plan of Treatment Upcoming Encounters Date Type Department Care Team (Late st Contact Info) Description 01/12/2025 10:00 AM FEEDER LOADER Office Visit [facility] Gastroenterology Clinic [place] [id number] [facility] 4th [place] [address] Paul Sanford MD [address] [place] [address] Scheduled Orders Name Type Priority Associated Diagnoses Orde r Schedule CBC with Platelets & Differential Lab Panel Routine Crohn's disease of small and large intestines with complication (H) 6 Occurrences starting 11/14/2024 until 11/14/2025 CRP inflammation Lab Routine Crohn's disease of small and large intestines with complication (H) 6 Occurrences starting 11/14/2024 until 11/14/2025 Hepatic panel Lab Routine Crohn's disease of small and large intestines with complication (H) 6 Occurrences starting 11/14/2024 until 11/14/2025 Quantiferon-TB Gold Plus Lab Panel Routine Crohn's disease of small and large intestines with complication (H) Expected: 11/14/2024 (Approximate), Expires: 11/14/2025 documented as of this encounter Visit Diagnoses Diagnosis Crohn's disease of small and large intestines with complication (H)- Primary documented in this encounter Care Teams Ethnoarchaeology Professor Relationship Specialty Start Date End Date Sushant Schreiber MD [facility] [address] [place] [address] PCP - General Family Medicine 12/02/21 No Ref-Primary, Physician 12/02/21 Cisco Caceres MD [address] [place] [address] 284 [place], [place] 5204[address] Fellow Gastroenterology 12/09/21 Yung Rodriguez MD [address] [facility] [address] [place] [address] Cardiovascular Disease 12/25/21 Tatianna Horne, [facility] [address] [place] [address] 331525 Pharmacist Pharmacist Reservation Agent 02/06/22 Billie Tucker, RN Specialty Protocol Manager Gastroenterology 12/10/22 Paul Sanford MD [address] [place] [address] 211605 Gastroenterology 12/25/22 Paul Sanford MD [address] [place] [address] 628945 Referring Physician Gastroenterology 01/14/23 Jt Waters MD [address] [place] [address] 090955 Dermatology 01/14/23 Bhavik Segura PA-C [address] [place] [address] 960685 Physician Senior Director Creative Services Gastroenterology 04/28/23 Paul Sanford MD [address] [place] [address] 961255 Assigned Gastroenterology Provider 07/18/23 Favian Mcknight MD [address] [place] [address] Dermatology 12/09/23 Favian Mcknight MD [address] [place] [address] Assigned Surgical Provider 01/29/24 Tatianna Horne [facility] [address] [place] [address] Assigned MTM Pharmacist 07/08/24 Lyudmila Baltazar, RN Home Infusion Telephone Instrument Supervisor 08/29/24 documented as of this encounter
--- OUTSIDE RECORDS SUMMARY | 2024-12-22 04:56 | XMS_ITS | Encounter Summary ---
Author Organization [place] Address [address] [place] [address] Care Team Providers Care Can Dragger Name Role Phone Sushant Schreiber MD Primary Care Provider No Ref-Primary, Physician Unavailable [phone] Cisco Caceres MD Unavailable [phone] Yung Rodriguez MD Unavailable Tatianna Horne [facility] Unavailable [phone] Billie Tucker RN Unavailable Unavailable Paul Sanford MD Unavailable [phone] Paul Sanford MD Unavailable [phone] Jt Waters MD Unavailable Bhavik Segura PA-C Unavailable [phone] Paul Sanford MD Unavailable [phone] Favian Mcknight MD Unavailable [phone] Favian Mcknight MD Unavailable [phone] Tatianna Horne [facility] Unavailable [phone] Lyudmila Baltazar RN Unavailable Unavailabl e Encounter Details Date Type Department Care Team (Late st Contact Info) Description 11/03/2024 My[facility] Medical Advice [facility] Gastroenterology Clinic [address] 4th [place] [address] Allison Steward Social History Tobacco [...] on file 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 Gender Identity Not on file Sexual Orientation Not on file documented as of this encounter Plan of Treatment Upcoming Encounters Date Type Department Care Team (Late st Contact Info) Description 01/12/2025 10:00 AM THEORETICAL PHYSICIST Office Visit [facility] Gastroenterology Clinic [address] [place] [phone] Paul Sanford MD [address] [place] [address] 834605 documented as of this encounter Visit Diagnoses Not on filedocumented in this encounter Care Teams Can Dragger Relationship Specialty Start Date End Date Sushant Schreiber MD [facility] [address] [place] [address] PCP - General Family Medicine 12/02/21 No Ref-Primary, Physician 12/02/21 Cisco Caceres MD [address] [place] [address] 284 [place], [place] 9[address] Fellow Gastroenterology 12/09/21 Yung Rodriguez MD [address] [facility] [address] [place] 4870[address] Cardiovascular Disease 12/25/21 Tatianna Horne, [facility] [address] [place] [address] Pharmacist Pharmacist Cnc Cutting Operator 02/06/22 Billie Tucker, RN Specialty Ordering Box Operator Gastroenterology 12/10/22 Paul Sanford MD [address] [place] [address] MD Gastroenterology 12/25/22 Paul Sanford MD [address] [place] [address]8065 Referring Physician Gastroenterology 01/14/23 Jt Waters MD [address] [place] [address] Dermatology 01/14/23 Bhavik Segura PA-C [address] [place] [address] Physician Dowel Pin Man Gastroenterology 04/28/23 Paul Sanford MD [address] [place] [address] 02242 Assigned Gastroenterology Provider 07/18/23 Favian Mcknight MD [address] [place] [address] Dermatology 12/09/23 Favian Mcknight MD [address] [place] [address] Assigned Surgical Provider 01/29/24 Tatianna Horne, [facility] [address] [place] [address] Assigned MTM Pharmacist 07/08/24 Lyudmila Baltazar, RN Home Infusion Evs Attendant 08/29/24 documented as of this encounter
--- OUTSIDE RECORDS SUMMARY | 2024-12-22 04:56 | XMS_ITS | Encounter Summary ---
Author Organization [facility] Address [address] [place] [address] Care Team Providers Care Paint Roller Covers Supervisor Name Role Phone Sushant Schreiber MD Primary Care Provider No Ref-Primary, Physician Unavailable [phone] Cisco Caceres MD Unavailable [phone] Yung Rodriguez MD Unavailable Tatianna Horne [facility] Unavailable [phone] Billie Tucker RN Unavailable Unavailable Paul Sanford MD Unavailable [phone] Paul Sanford MD Unavailable [phone] Jt Waters MD Unavailable Jt Waters MD Unavailable Bhavik Segura PA-C Unavailable [phone] Paul Sanford MD Unavailable [phone] Favian Mcknight MD Unavailable [phone] Favian Mcknight MD Unavailable [phone] Tatianna Horne [facility] Unavailable [phone] Lyudmila Baltazar RN Unavailable Unavailabl e Encounter Details Date Type Department Care Team (Late st Contact Info) Description 11/10/2023 [facility] Gastroenterology Clinic [address] 4th [place] [address] [facility] Social History Tobacco Use Types Packs/Day [...] on file 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 Gender Identity Not on file Sexual Orientation Not on file documented as of this encounter Plan of Treatment Upcoming Encounters Date Type Department Care Team (Late st Contact Info) Description 01/12/2025 10:00 AM GRAINER MACHINE Office Visit [facility] Gastroenterology Clinic [address] [phone] Paul Sanford MD [address] [place] [address] 612015 documented as of this encounter Visit Diagnoses Not on filedocumented in this encounter Care Teams Paint Roller Covers Supervisor Relationship Specialty Start Date End Date Sushant Schreiber MD [facility] [address] [place] [address] PCP - General Family Medicine 12/02/21 No Ref-Primary, Physician 12/02/21 Cisco Caceres MD [address] [place] [address] 284 [place], [place] 67[address] Fellow Gastroenterology 12/09/21 Yung Rodriguez MD [address] [facility] [address] [place], [place] 2486[address] Cardiovascular Disease 12/25/21 Tatianna Horne, [facility] [address] [place] [address] Pharmacist Pharmacist Mixer Driver 02/06/22 Billie Tucker, RN Specialty Laborer/Key Man Gastroenterology 12/10/22 Paul Sanford MD [address] [place] [address] Gastroenterology 12/25/22 Paul Sanfodr MD [address] [place] [address] Referring Physician Gastroenterology 01/14/23 Jt Waters MD [address] [place] [address] Dermatology 01/14/23 Jt Waters MD [address] [place] [address] Assigned Surgical Provider 01/17/23 01/28/24 Bhavik Segura PA-C [address] [place] [address] Physician Wardrobe Assistant Gastroenterology 04/28/23 Paul Sanford MD [address] [place] [address] 15165 Assigned Gastroenterology Provider 07/18/23 Favian Mcknight MD [address] [place] [address] Dermatology 12/09/23 Favian Mcknight MD [address] [place] [address]807 Assigned Surgical Provider 01/29/24 Tatianna Horne [facility] [address] [place], [place] [address] Assigned MTM Pharmacist 07/08/24 Lyudmila Baltazar, RN Home Infusion Telecommunications Specialist 08/29/24 documented as of this encounter
--- OUTSIDE RECORDS SUMMARY | 2024-12-22 04:56 | XMS_ITS | Encounter Summary ---
Author Organization [facility] Address [address] [place] [address] Care Team Providers Care Reservations Manager Name Role Phone Sushant Schreiber MD Primary Care Provider [phone] No Ref-Primary, Physician Unavailable [phone] Cisco Caceres MD Unavailable [phone] Yung Rodriguez MD Unavailable Tatianna Horne [facility] Unavailable [phone] Billie Tucker RN Unavailable Unavailable Paul Sanford MD Unavailable [phone] Paul Sanford MD Unavailable [phone] Jt Waters MD Unavailable Jt Waters MD Unavailable Bhavik Segura PA-C Unavailable +[phone] Paul Sanford MD Unavailable [phone] Favian Mcknight MD Unavailable [phone] Favian Mcknight MD Unavailable [phone] Tatianna Horne [facility] Unavailable [phone] Lyudmila Baltazar RN Unavailable Unavailabl e Encounter Details Date Type Department Care Team (Late st Contact Info) Description 10/30/2023 [facility] Gastro[facility]ology Clinic [address] 4th [place] [address] [facility] Social History Tobacco Use Types Packs/Day [...] on file 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 Gender Identity Not on file Sexual Orientation Not on file documented as of this encounter Plan of Treatment Upcoming Encounters Date Type Department Care Team (Late st Contact Info) Description 01/12/2025 10:00 AM PIG LEAD MELTER HELPER Office Visit [facility] Gastroenterology Clinic [address] [phone] Paul Sanford MD [address] [place] [address] [id number] documented as of this encounter Visit Diagnoses Not on filedocumented in this encounter Care Teams Reservations Manager Relationship Specialty Start Date End Date Sushant Schreiber MD [facility] [address] [place] [address] PCP - General Family Medicine 12/02/21 No Ref-Primary, Physician 12/02/21 Cisco Caceres MD [address] [place] [address] [address] [place], [place] 549475 Fellow Gastroenterology 12/09/21 Yung Rodriguez MD [address] [place], [place] 8[address] Cardiovascular Disease 12/25/21 Tatianna Horne, [facility] [address] [place] [address] Pharmacist Pharmacist Sports Attorney 02/06/22 Billie Tucker, RN Specialty Otr Flatbed Driver Gastroenterology 12/10/22 Paul Sanford MD [address] [place] [address] Gastroenterology 12/25/22 Paul Sanford MD [address] [place] [address] Referring Physician Gastroenterology 01/14/23 Jt Waters MD [address] [place] [address] Dermatology 01/14/23 Jt Waters MD [address] [place] [address]39[address] Assigned Surgical Provider 01/17/23 01/28/24 Bhavik Segura PA-C [address] [place] [address] Physician Epic Analyst Gastroenterology 04/28/23 Paul Sanford MD [address] [place] [address] Assigned Gastroenterology Provider 07/18/23 Favian Mcknight MD [address] [place] [address] Dermatology 12/09/23 Favian Mcknight MD [address] [place] [address] Assigned Surgical Provider 01/29/24 Tatianna Horne [facility] [address] [place], [place] 2597[address] Assigned MTM Pharmacist 07/08/24 Lyudmila Baltazar, RN Home Infusion Medicine Aide 08/29/24 documented as of this encounter
--- OUTSIDE RECORDS SUMMARY | 2024-12-22 04:57 | XMS_ITS | Encounter Summary ---
Author Organization [facility] Address [address] [place] [address] Care Team Providers Care Operations Project Manager Name Role Phone Sushant Schreiber MD Primary Care Provider [phone] No Ref-Primary, Physician Unavailable [phone] Cisco Caceres MD Unavailable [phone] Yung Rodriguez MD Unavailable Tatianna Horne [facility] Unavailable [phone] Billie Tucker RN Unavailable Unavailable Paul Sanford MD Unavailable [phone] Paul Sanford MD Unavailable [phone] Jt Waters MD Unavailable Jt Waters MD Unavailable Bhavik Segura PA-C Unavailable [phone] Paul Sanford MD Unavailable [phone] Favian Mcknight MD Unavailable [phone] Favian Mcknight MD Unavailable [phone] Tatianna Horne [facility] Unavailable [phone] Lyudmila Baltazar RN Unavailable Unavailabl e Encounter Details Date Type Department Care Team (Late st Contact Info) Description 09/21/2023 [facility] Gastroenterology Clinic [address] 4[address] [place] [address] Isabel Patricia RN Social History Tobacco Use Types Packs/Day [...] on file Legal 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 KNUCKLER Gender Identity Not on file Sexual Orientation Not on file documented as of this encounter Plan of Treatment Upcoming Encounters Date Type Department Care Team (Late st Contact Info) Description 01/12/2025 10:00 AM KNUCKLER Office Visit [facility] Gastroenterology Clinic [place] [address] [place] [phone] Paul Sanford MD [address] [place] [address] [phone] documented as of this encounter Visit Diagnoses Not on filedocumented in this encounter Care Teams Operations Project Manager Relationship Specialty Start Date End Date Sushant Schreiber MD [facility] [address] [place] [address] PCP - General Family Medicine 12/02/21 No Ref-Primary, Physician 12/02/21 Cisco Caceres MD [facility] [address] [place], [place] 765[address] Fellow Gastroenterology 12/09/21 Yung Rodriguez MD [address] [place] [address] Cardiovascular Disease 12/25/21 Tatianna Horne, [facility] [address] [place] [address] Pharmacist Pharmacist Wastewater Treatment Operator 02/06/22 Billie Tucker, RN Specialty Human Resources Assistant Manager Gastroenterology 12/10/22 Paul Sanford MD [address] [place] [address] Gastroenterology 12/25/22 Paul Sanford MD [address] [place] [address] Referring Physician Gastroenterology 01/14/23 Jt Waters MD [address] [place] [address] Dermatology 01/14/23 Jt Waters MD [address] [place] [address]105 Assigned Surgical Provider 01/17/23 01/28/24 Bhavik Segura PA-C [address] [place] [address] Physician Plan Manager Gastroenterology 04/28/23 Paul Sanford MD [address] [place] [address] Assigned Gastroenterology Provider 07/18/23 Favian Mcknight MD [address] [place] [address] Dermatology 12/09/23 Favian Mcknight MD [address] [place] [address] Assigned Surgical Provider 01/29/24 Tatianna Horne [facility] [address] [place] [address] Assigned MTM Pharmacist 07/08/24 Lyudmila Baltazar, RN Home Infusion Air Value Tester 08/29/24 documented as of this encounter
--- OUTSIDE RECORDS SUMMARY | 2024-12-22 04:57 | XMS_ITS | Encounter Summary ---
Author Organization [facility] Address [address] [place] [address] Care Team Providers Care Certified Court/Medical Interpreter Name Role Phone Sushant Schreiber MD Primary Care Provider [phone] Ref-Primary, Physician Unavailable [phone] Cisco Caceres MD Unavailable [phone] Yung Rodriguez MD Unavailable Tatianna Horne [facility] Unavailable [phone] Billie Tucker RN Unavailable Unavailable Paul Sanford MD Unavailable [phone] Paul Sanford MD Unavailable [phone] Jt Waters MD Unavailable Bhavik Segura PA-C Unavailable [phone] Paul Sanford MD Unavailable [phone] Favian Mcknight MD Unavailable [phone] Favian Mcknight MD Unavailable [phone] Tatianna Horne [facility] Unavailable [phone] Lyudmila Baltazar RN Unavailable Unavailabl e Encounter Details Date Type Department Care Team (Late st Contact Info) Description 11/17/2024 [facility] Gastroenterology Clinic [address] 4th [place] [address] Billie Tucker, RN Social History [...] on file 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 Gender Identity Not on file Sexual Orientation Not on file documented as of this encounter Plan of Treatment Upcoming Encounters Date Type Department Care Team (Late st Contact Info) Description 01/12/2025 10:00 AM MARINE ERECTOR Office Visit [facility] Gastroenterology Clinic [address] [phone] Paul Sanford MD [address] [place] [address] [phone] documented as of this encounter Visit Diagnoses Not on filedocumented in this encounter Care Teams Certified Court/Medical Interpreter Relationship Specialty Start Date End Date Sushant Schreiber MD [facility] - [address] [address] PCP - General Family Medicine 12/02/21 No Ref-Primary, Physician 12/02/21 Cisco Caceres MD [address] [place] [address] 586065 Fellow Gastroenterology 12/09/21 Yung Rodriguez MD [address] [place], [place] 6257[address] Cardiovascular Disease 12/25/21 Tatianna Horne, [facility] [address] [place] [address] Pharmacist Pharmacist Jackhammer Splitter Operator 02/06/22 Billie Tucker, RN Specialty Gut Sorter Gastroenterology 12/10/22 Paul Sanford MD [address] [place] [address] Gastroenterology 12/25/22 Paul Sanford MD [address] [place] [address] Referring Physician Gastroenterology 01/14/23 Jt Waters MD [address] [place] [address] Dermatology 01/14/23 Bhavik Segura PA-C [address] [place] [address] Physician Real Estate Acquisition Analyst Gastroenterology 04/28/23 Paul Sanford MD [address] [place] [address] Assigned Gastroenterology Provider 07/18/23 Favian Mcknight MD [address] [place] [address] Dermatology 12/09/23 Favian Mcknight MD [address] [place] [address] Assigned Surgical Provider 01/29/24 Tatianna Horne, [facility] [address] [place] [address] Assigned MTM Pharmacist 07/08/24 Lyudmila Baltazar, RN Home Infusion Equipment Oiler 08/29/24 documented as of this encounter
--- OUTSIDE RECORDS SUMMARY | 2024-12-22 04:57 | XMS_ITS | Clinical Summary ---
Author Organization [facility] Address [place], [place] [address] Care Team Providers Care Federal Java Developer Name Role Phone Sushant Schreiber MD Primary Care Provider [phone] Allergies Active Allergy Reactions Criticality Noted Date Comments Hydrocodone-Acetaminophen Vomiting Low 04/17/2022 Medications azaTHIOprine (IMURAN) 50 mg tablet Take 200 mg by mouth once daily. 2 Active inFLIXimab (REMICADE) 100 mg injection Inject 5 mg/kg intravenous every 8 weeks. Active acetaminophen (TYLENOL EXTRA STRGTH) 500 mg tablet Take 1,000 mg by mouth every 6 hours if needed for Pain or Headache. Max acetaminophen dose: 4000mg in 24 hrs. Active CPAPIndication s:DALE (obstructive sleep apnea) RESMED CPAP (E0601) machine for home use at pressure: 5-15cmw, Choice of mask (A7030 or A7034) w/full face cushion (A7031) x1/mo, nasal cushion (A7032) x2/mo, or nasal pillows (A7033) x 2/mo; Length of Need: 99 months; Frequency of use: Daily 1 Each 11 4 Active Active Problems Problem Noted Date Diagnosed Date DALE 06/14/2024 AHI- 21 09/15/2024 Restless leg syndrome 09/15/2024 Crohn's disease of both small and large intestin e 01/28/2022 Cannabis dependence 09/05/2020 Lumbar radiculopathy Overview (05/15/2022): pain, low back pain going into the [...] at Not on file Legal 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 Gender Identity Not on file Sexual Orientation Not on file Obstetrics History Last Filed Vital Signs Vital Sign Reading Time Taken Comments Blood Pressure 133/89 09/15/2024 8:30 AM CDT Pulse 79 09/15/2024 8:30 AM CDT Temperature 36.8 C (98.2 F) 05/17/2022 12:24 PM CDT Respiratory Rate 16 05/17/2022 12:2 4 PM CDT Oxygen Saturation 96% 09/15/2024 8:30 AM CDT Inhaled Oxygen Concentration - - Weight 132.1 kg (291 lb 3.2 oz) 09/15/2024 8:30 AM CDT Height 181.6 cm (5' 11.5) 09/15/2024 8:30 AM CD T Body Mass Index 40.05 09/15/2024 8:30 AM CDT Plan of Treatment Health Maintenance Due Date Last Done Comments Tdap 1999 Depression screening for age 12+ 2000 Tetanus booster 2008 COVID-19 vaccine series (3 - Moderna risk series) 08/27/2021 07/30/2021, 07/02/2021 Lipids for age 35-44 2023 Influenza for age 9-49 07/17/2024 BMI (ht and wt on same day) for age 18+ 09/15/2025 09/15/2024 HIV for age 15-65 Completed 06/29/2020 Hepatitis C screening for ag e 18-79 Completed 08/16/2021 Pneumococcal series for age 6-49 Aged Out No longer eligible b ased on patient's age to complete this topic Medical Devices Implanted Type Area Grid Trimmer Device Identifier Shelf Expiration Date Model / Serial / Lot Dura Neuro 1xin Duragen Usha - [id number] Implanted:Qty: 1 on 04/21/2022 by Tadeo Calles MD at [facility] [employer] 01/13/2025 [id number] / / [id number] Procedures Procedure Name Priority Date/Time Associated Diagnosis [...] alma Non-React alma 08/16/2021 7:39 PM CDT [facility] Comment:Antibodies to HCV no t detected; does not exclude the possibility of exposure to HCV. Blood BLOOD SPECIMEN / Unknown Butterfly / Unknown 08/16/2021 11:49 AM CDT 08/16/2021 12:15 PM CDT us Kaity Villatoro DO SEND OUTS Final Resul t [facility] [address] [place] [address], * ANTI HIV 1/2 (06/29/2020 2:53 PM CDT) HIV-1/HIV-2 ANTIBODY Non-Reacti ve Non-Reacti ve 06/29/2020 8:44 PM CDT [facility] Comment:HIV-1 p24 and HIV-1/ HIV-2 Ab not detected. Blood BLOOD SPECIMEN / Unknown Venipuncture / Unknown 06/29/2020 2:53 PM CDT 06/29/2020 2:53 PM CDT us Vinicio Teresa MD SEND OUTS Final Res ult [facility] [address] [place] [address], [place] from Last 3 Months or Most Recently Relevant to Health Maintenance Insurance [employer] Advance Directives * Full Code (Latest Code Status on File) Date Activated Date Inactivated Comments 05/15/2022 7:03 PM 05/17/2022 4:29 PM Question Answer Comments Code Status Discussion: Reviewed Preferences Care Teams Federal Java Developer Relationship Specialty Start Date End Date Sushant Schreiber MD [address] [place] [address] PCP - General Family Practice 06/29/20
--- OUTSIDE RECORDS SUMMARY | 2024-12-22 04:57 | XMS_ITS | Clinical Summary ---
Author Organization [facility] Address [address] [place] [address] Care Team Providers Care Aeronautical Inspector Name Role Phone Sushant Schreiber MD Primary Care Provider [phone] No Ref-Primary, Physician Unavailable [phone] Cisco Wooten MD Unavailable [phone] Yung Rodriguez MD Unavailable Tatianna Horne [facility] Unavailable [phone] Billie Tucker RN Unavailable Unavailable Megha Sanford MD Unavailable [phone] Megha Sanford MD Unavailable [phone] Jt Waters MD Unavailable Bhavik Segura PA-C Unavailable [phone] Megha Sanford MD Unavailable [phone] Favian Mcknight MD Unavailable [phone] Favian Mcknight MD Unavailable [phone] Tatianna Horne [facility] Unavailable [phone] Lyudmila Baltazar RN Unavailable Unavailabl e Allergies Active Allergy Reactions Criticality Noted Date Comments Hydrocodone-Acetaminophen Nausea and Vomiting Low 0 04/17/2022 Oxycodone Nausea and Vomiting 12/04/2021 Medications acetaminophen (TYLENOL) 325 MG tablet Take 325-650 mg by mouth 3 times daily as needed for mild pain, fever or headaches Active cetirizine (ZYRTEC) 10 MG tabletIndicatio ns:Urticaria Take one pill (10mg daily) for hives. If not controlling your hives, start taking one pill twice daily (morning and evening). 60 tablet 5 01/19/20 24 Active inFLIXimab-dyyb (INFLECTRA) 100 MG injectionIndica tions:Crohn's disease of both small and large intestine with other complication (H) Inject 1,300 mg into the vein once every eight weeks 06/15/20 24 Active azaTHIOprine (IMURAN) 50 MG tabletIndicatio ns:Crohn's disease of both small and large intestine with other complication (H) Take 4 tablets (200 mg) by mouth daily for 4 days. 16 tablet 08/30/20 24 Active inFLIXimab-dyyb (INFLECTRA) 1,300 mg in sodium chloride 0.9 % 500 mL via gravity infusionIndicat ions:Crohn's disease of both small and large intestine with other complication (H) Infuse 1,300 mg over 2 hours into the vein once every eight weeks. When complete, flush bag with 20 mL NS to flush tubing. [id number] mL 5 9:32 AM MELTER SUPERVISOR [employer]URNACE 11/14/20 24 2024 Active acetaminophen (TYLENOL) 325 MG tabletIndicatio ns:Crohn's disease of both small and large intestine with other complication (H) Take 2 tablets (650 mg) by mouth once every eight weeks. Administer 30 minutes prior to infusion 12 tablet 5 9:32 AM MELTER SUPERVISOR [employer]GEN FURNACE 11/14/20 24 2024 Active diphenhydrAMINE (BENADRYL) 25 MG capsuleIndicati ons:Crohn's disease of both small and large intestine with other complication (H) Take 2 capsules (50 mg) by mouth once every eight weeks. Administer 30 minutes prior to infusion 12 capsule 5 9:32 AM MELTER SUPERVISOR [employer]GEN FURNACE 11/14/20 24 2024 Active methylPREDNISol one Na Suc (PF) (solu-MEDROL) 40 mg in sodium chloride 0.9 % 4 mL injectionIndica tions:Crohn's disease of both small and large intestine with other complication (H) Inject 40 mg over 3-5 minutes into the vein via push once every eight weeks. Administer 30 minutes prior to infusion [id number] mL 5 9:32 AM MELTER SUPERVISOR [employer]GEN FURNACE 11/14/20 24 2024 Active sodium chloride, PF, 0.9% PF flushIndication s:Crohn's disease of both small and large intestine with other complication (H) Inject 10 mLs into the vein as needed for other (infusion reaction). For RN use only as needed for infusion reaction [id number] mL 11/14/20 24 2024 Active diphenhydrAMINE (BENADRYL) 50 MG/ML injectionIndica tions:Crohn's disease of both small and large intestine with other complication (H) Inject 1 mL (50 mg) over 3-5 minutes into the vein via push as needed for other (infusion reaction). For RN use only. Draw up in a syringe and administer IV push. Discard remainder of vial. [id number] mL 11/14/20 24 2024 Active EPINEPHrine (ANY BX GENERIC EQUIV) 0.3 MG/0.3ML injection 2-packIndicatio ns:Crohn's disease of both small and large intestine with other complication (H) Inject 0.3 mLs (0.3 mg) into the muscle as needed for anaphylaxis (infusion reaction). Administer into the mid-thigh in case of severe anaphylaxis (wheezing, throat tightening, mouth swelling, difficulty breathing). May repeat dose one time in 5-15 minutes if symptoms persist. [id number] mL 11/14/20 24 2024 Active sodium chloride 0.9% infusionIndicat ions:Crohn's disease of both small and large intestine with other complication (H) Infuse 500 mLs into the vein as needed for other (infusion reaction). In case of mild reaction, administer via gravity at 20 mL/hr to keep vein open. In case of severe reaction, administer via gravity wide open on prime setting. [id number] mL 5 9:32 AM MELTER SUPERVISOR O[employer]GEN FURNACE 11/14/20 24 2025 Active methylPREDNISol one Na Suc, PF, (SOLU-MEDROL) 125 mg/2 mL injectionIndica tions:Crohn's disease of both small and large intestine with other complication (H) Inject 2 mLs (125 mg) over 3-5 minutes into the vein via push as needed (infusion reaction). For RN use only. Reconstitute vial. Draw up methylPREDNISolone in a syringe and administer. Discard remainder of vial. [id number] mL 11/14/20 24 2024 Active sodium chloride, PF, 0.9% PF flushIndication s:Crohn's disease of both small and large intestine with other complication (H) Inject 10 mLs into the vein as needed for line flush. Flush IV before and after medication administration as directed and/or at least every 12 hours. [id number] mL 9:32 AM MELTER SUPERVISOR [employer]GEN FURNACE 11/14/20 24 2024 Active Emergency Supply Kit, PIV,Indications :Crohn's disease of both small and large intestine with other complication (H) Patient use for emergency only. Contents: 3 sodium chloride 0.9% flushes, 1 IV start kit, 1 microclave ext set 14, 1 each IV Cath 22 G/1 and 24G/3/4, 6 alcohol prep pads, 4 nitrile gloves (med). Call to reorder. [id number] kit 11/14/20 24 2024 Active Active Problems Problem Noted Date Diagnosed Date Back injury 03/23/2023 Chronic left-sided low back pain without sciatic a 02/27/2022 Crohn's disease of both small and large intestin e 01/28/2022 Pericardial effusion 12/03/2021 CARDIOVASCULAR SCREENING; LDL GOAL LESS THAN 160 09/15/2010 Encounters Date Type Department Care Team Description 12/19/2024 1:00 PM MELTER SUPERVISOR [employer]GEN FURNACE Home Care Visit [facility] [address] [place] [address] Jonnie Mcfadden, JANELL 12/18/2024 MyC Medical Advice [facility] GI [place] [address] [facility] [address] [place] [address] Tatianna Horne RPH 12/06/2024 Telephone [facility] Gastro Procedure [place] [address] [place] [address] [address] [place] [address] Denita Waddell LPN 12/06/2024 MyC Medical Advice [address] [place] [address] Denita Waddell, LIME KILN WORKER 11/28/2024 MyC Medical Advice [address] [address] EstherDenita mehta, LIME KILN WORKER 11/17/2024 MyC Medical Advice [facility] Gastroenterology [address] [phone] Billie Tucker, RN 11/17/2024 Telephone [facility] Gastroenterology [address] [phone] Paula Jane PA-C Appointment 11/14/2024 Telephone [facility] Gastroenterology [address] [phone] Paula Jane PA-C Appointment 11/14/2024 Telephone [facility] Gastroenterology [address] [phone] Billie Tucker, JANELL 11/03/2024 MyC Medical Advice [facility] Gastroenterology [address] [phone] Allison Steward 11/03/2024 Telephone [facility] Gastroenterology [address] [phone] Allison Steward 10/27/2024 Home Infusion [facility] [address] [place] [address] Navjot Mantilla, [facility] Crohn's disease of both small and large intestine with other complication (H) 10/24/2024 12:00 PM MELTER SUPERVISOR [employer] FURNACE Home Care Visit [facility] [address] [place] [address] Lyudmila Baltazar, RN from Last 3 Months Family History Medical [...] on file Legal 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 MELTER SUPERVISOR [employer]GEN FURNACE Gender Identity Not on file Sexual Orientation Not on file Last Filed Vital Signs Vital Sign Reading Time Taken Comments Blood Pressure 124/75 12/19/2024 2:42 PM MELTER SUPERVISOR [employer] FURNACE Pulse 76 12/19/2024 2:42 PM MELTER SUPERVISOR [employer] FURNACE Temperature 36.7 C (98 F) 12/19/2024 2:42 PM MELTER SUPERVISOR O[employer]GEN FURNACE Respiratory Rate 16 12/19/2024 2:42 PM MELTER SUPERVISOR OXYGEN FURNACE Oxygen Saturation 98% 12/19/2024 2:42 PM MELTER SUPERVISOR O[employer]GEN FURNACE Inhaled Oxygen Concentration - - Weight 129.3 kg (285 lb) 12/19/2024 1:05 PM MELTER SUPERVISOR O[employer]GEN FURNACE Height 180.3 cm (5' 11) 12/19/2024 1:05 PM MELTER SUPERVISOR O[employer]GEN FURNACE Body Mass Index 39.75 12/19/2024 1:05 PM MELTER SUPERVISOR O[employer]GEN FURNACE Plan of Treatment Upcoming Encounters Date Type Department Care Team (Late st Contact Info) Description 01/12/2025 10:00 AM MELTER SUPERVISOR [employer] FURNACE Office Visit [facility] Gastroenterology Clinic [address] [phone] Megha Sanford MD [address] [place] [address] Health Maintenance Due Date Last Done Comments ADVANCE CARE PLANNING 1990 ANNUAL REVIEW OF HM ORDERS 1990 CT COLONOGRAPHY 1990 FIT 1990 FLEX SIG 1990 URINE DRUG SCREEN 1990 sDNA (Cologuard) 1990 HEPATITIS B IMMUNIZATION (2 of 3 - 3-dose series) 04/25/2002 03/28/2002 YEARLY PREVENTIVE VISIT 06/07/2005 06/07/2004 Pneumococcal Vaccine: Pediatrics (0 to 5 Years) and At-Risk Patients (6 to 49 Years) (1 of 2 - PCV) 2007 ZOSTER IMMUNIZATION (1 of 2) 2007 COVID-19 Vaccine (3 - Moderna risk series) 08/27/2021 07/30/2021, 07/02/2021 INFLUENZA VACCINE (#1) 2024 , 07/27/2012, 09/17/2010 PHQ-2 (once per calendar year) 2024 12/08/2023, 12/09/2022, 04/01/2022, Additional history exists COLONOSCOPY 09/29/2025 09/29/2023, 09/29/2023 COLORECTAL CANCER SCREENING 09/29/2025 GLUCOSE 12/08/2026 12/08/2023, 04/2024, 12/25/2022, Additional history exists DTAP/TDAP/TD IMMUNIZATION (5 - Td or Tdap) 06/18/2030 06/18/2020, 01/14/2010, 01/14/2009, Additional history exists HEPATITIS C SCREENING Completed 01/20/2024 , 08/16/2021, 08/16/2021 HIV SCREENING Completed 01/20/2024, 06/29/2020 HPV IMMUNIZATION Aged Out No longer e ligible based on patient's age to complete this topic MENINGITIS IMMUNIZATION Aged Out No l onger eligible based on patient's age to complete this topic Procedures Procedure Name Priority Date/Time Associated Diagnosis Comments CBC WITH PLATELETS & DIFFERENTIAL Routine 12/19/2024 12:45 PM MELTER SUPERVISOR [employer] FURNACE Crohn's disease of both small and large intestine without complications (H) EXTRA RED TOP TUBE (LAB USE ONLY) Routine 12/19/2024 12:45 PM MELTER SUPERVISOR O[employer]GEN FURNACE Crohn's disease of both small and large intestine without complications (H) EXTRA RED TOP TUBE (LAB USE ONLY) Routine 12/19/2024 12:45 PM MELTER SUPERVISOR O[employer]GEN FURNACE Crohn's disease of both small and large intestine without complications (H) EXTRA SERUM SEPARATOR TUBE (SST) (LAB USE ONLY) Routine 12/19/2024 12:45 PM MELTER SUPERVISOR OXYGEN FURNACE Crohn's disease of both small and large intestine without complications (H) EXTRA SERUM SEPARATOR TUBE (SST) (LAB USE ONLY) Routine 12/19/2024 12:45 PM MELTER SUPERVISOR OXYGEN FURNACE Crohn's disease of both small and large intestine without complications (H) CBC WITH PLATELETS AND DIFFERENTIAL Routine 12/19/2024 12:45 PM MELTER SUPERVISOR OXYGEN FURNACE Crohn's disease of both small and large intestine without complications (H) VITAMIN B12 Routine 12/19/2024 12:45 PM MELTER SUPERVISOR OXYGEN FURNACE Crohn's disease of both small and large intestine without complications (H) CRP INFLAMMATION Routine 12/19/2024 12:4 5 PM MELTER SUPERVISOR O[employer]GEN FURNACE Crohn's disease of both small and large intestine without complications (H) HEPATIC FUNCTION PANEL Routine 12/19/2024 12:45 PM MELTER SUPERVISOR O[employer]GEN FURNACE Crohn's disease of both small and large intestine without complications (H) HIV ANTIGEN ANTIBODY COMBO Add-On 01/20/2024 10:09 AM MELTER SUPERVISOR O[employer]GEN FURNACE Crohn's disease of small intestine with abscess (H) High risk medication use HEPATITIS C ANTIBODY Add-On 01/20/2024 10:09 AM MELTER SUPERVISOR O[employer]GEN FURNACE Crohn's disease of small intestine with abscess (H) High risk medication use BASIC METABOLIC PANEL Routine 12/08/2023 4:39 PM MELTER SUPERVISOR O[employer]GEN FURNACE Arthralgia, unspecified joint High risk medication use CRP elevated COLONOSCOPY Routine 09/29/2023 9:29 AM MELTER SUPERVISOR OXYGEN FURNACE from Last 3 Months or Most Recently Relevant to Health Maintenance Results * (ABNORMAL) CBC with platelets and differential (12/19/2024 12:45 PM MELTER SUPERVISOR OXYGEN FURNACE) [facility] WBC Count 9.2 4.0 - 11.0 10e3/uL 12/19/2024 4:33 PM MELTER SUPERVISOR OXYGEN FURNACE [facility] RBC Count 4.23(L) 4.40 - 5.90 10e6/uL 12/19/2024 4:33 PM MELTER SUPERVISOR OXYGEN FURNACE [facility] Hemoglobin 14.8 13.3 - 17.7 g/dL 12/19/2024 4:33 PM MELTER SUPERVISOR O[employer]GEN FURNACE [facility] Hematocrit 40.6 40.0 - 53.0 % 12/19/2024 4:33 PM MELTER SUPERVISOR OXYGEN FURNACE [facility] MCV 96 78 - 100 fL 12/19/2024 4:33 PM MELTER SUPERVISOR OXYGEN FURNACE [facility] MCH 35.0(H) 26.5 - 33.0 pg 12/19/2024 4:33 PM MELTER SUPERVISOR OXYGEN FURNACE [facility] MCHC 36.5 31.5 - 36.5 g/dL 12/19/2024 4:33 PM MELTER SUPERVISOR OXYGEN FURNACE [facility] RDW 12.6 10.0 - 15.0 % 12/19/2024 4:33 PM MELTER SUPERVISOR OXYGEN FURNACE [facility] Platelet Count 239 150 - 450 10e3/uL 12/19/2024 4:33 PM MELTER SUPERVISOR OXYGEN FURNACE [facility] % Neutrophils 65 % 12/19/2024 4:33 PM MELTER SUPERVISOR OXYGEN FURNACE [facility] % Lymphocytes 25 % 12/19/2024 4:33 PM MELTER SUPERVISOR OXYGEN FURNACE [facility] % Monocytes 7 % 12/19/2024 4:33 PM MELTER SUPERVISOR OXYGEN FURNACE [facility] % Eosinophils 1 % 12/19/2024 4:33 PM MELTER SUPERVISOR OXYGEN FURNACE [facility] % Basophils 1 % 12/19/2024 4:33 PM MELTER SUPERVISOR OXYGEN FURNACE [facility] % Immature Granulocytes 0 % 12/19/2024 4:33 PM MELTER SUPERVISOR OXYGEN FURNACE [facility] NRBCs per 100 WBC 0 <1 /100 025 4:33 PM MELTER SUPERVISOR OXYGEN FURNACE [facility] Absolute Neutrophils 6.0 1.6 - 8.3 10e3/uL 12/19/2024 4:33 PM MELTER SUPERVISOR OXYGEN FURNACE [facility] Absolute Lymphocytes 2.3 0.8 - 5.3 10e3/uL 12/19/2024 4:33 PM MELTER SUPERVISOR OXYGEN FURNACE [facility] Absolute Monocytes 0.7 0.0 - 1.3 10e3/uL 12/19/2024 4:33 PM MELTER SUPERVISOR OXYGEN FURNACE [facility] Absolute Eosinophils 0.1 0.0 - 0.7 10e3/uL 12/19/2024 4:33 PM MELTER SUPERVISOR OXYGEN FURNACE [facility] Absolute Basophils 0.1 0.0 - 0.2 10e3/uL 12/19/2024 4:33 PM MELTER SUPERVISOR OXYGEN FURNACE [facility] Absolute Immature Granulocytes 0.0 <=0.4 10e3/uL 12/19/2024 4:33 PM MELTER SUPERVISOR OXYGEN FURNACE [facility] Absolute NRBCs 0.0 10e3/uL 12/19/2024 4:33 PM MELTER SUPERVISOR O[employer]GEN FURNACE LABORATORY Blood BLOOD SPECIMEN / Unknown Client Draw / Unknown 12/19/2024 12:45 PM MELTER SUPERVISOR O[employer]GEN FURNACE 12/19/2024 4:19 PM MELTER SUPERVISOR OXYGEN FURNACE us Megha Sanford MD LAB - BLOOD ORDERABLE S Final Result LABORATORY [facility] [place] [facility] [address] [facility], [address] [phone] * Extra SST Tube (LAB USE ONLY) (12/19/2024 12:45 PM MELTER SUPERVISOR OXYGEN FURNACE) Only the most recent of2 resultswithin the time period is included. Hold Specimen [facility] 12/19/2024 5:31 PM MELTER SUPERVISOR OXYGEN FURNACE LABORATORY Blood BLOOD SPECIMEN / Unknown Client Draw / Unknown 12/19/2024 12:45 PM MELTER SUPERVISOR O[employer]GEN FURNACE 12/19/2024 4:19 PM MELTER SUPERVISOR OXYGEN FURNACE us Megha Sanford MD LAB - BLOOD ORDERABLE S Final Result Performing Organization Address City/[facility]/ZIP Co de Phone Number LABORATORY [facility] [place] [facility] [address] [facility], [address] [phone] * Extra Red Top Tube (LAB USE ONLY) (12/19/2024 12:45 PM MELTER SUPERVISOR OXYGEN FURNACE) Only the most recent of2 resultswithin the time period is included. Hold Specimen [facility] 12/19/2024 5:31 PM MELTER SUPERVISOR O[employer]GEN FURNACE LABORATORY Blood BLOOD SPECIMEN / Unknown Client Draw / Unknown 12/19/2024 12:45 PM MELTER SUPERVISOR OXYGEN FURNACE 12/19/2024 4:19 PM MELTER SUPERVISOR OXYGEN FURNACE us Megha Sanford MD LAB - BLOOD ORDERABLE S Final Result [facility]ORY [facility] [place] [facility] [address] [facility], Room [address] [place] [address] * Hepatic function panel (12/19/2024 12:45 PM MELTER SUPERVISOR OXYGEN FURNACE) Pathologist [facility] Protein Total 7.4 6.4 - 8.3 g/dL 12/19/2024 5:26 PM MELTER SUPERVISOR OXYGEN FURNACE [facility] Albumin 4.3 3.5 - 5.2 g/dL 12/19/2024 5:26 PM MELTER SUPERVISOR OXYGEN FURNACE [facility] Bilirubin Total 0.3 <=1.2 mg/dL 12/19/2024 5:26 PM MELTER SUPERVISOR OXYGEN FURNACE [facility] Alkaline Phosphatase 120 40 - 150 U/L 12/19/2024 5:26 PM MELTER SUPERVISOR O[employer]GEN FURNACE [facility] AST 34 0 - 45 U/L 12/19/2024 5:26 PM MELTER SUPERVISOR OXYGEN FURNACE [facility] ALT 41 0 - 70 U/L 12/19/2024 5:26 PM MELTER SUPERVISOR OXYGEN FURNACE [facility] Bilirubin Direct <0.20 0.00 - 0.30 mg/dL 12/19/2024 5:26 PM MELTER SUPERVISOR OXYGEN FURNACE [facility] Blood BLOOD SPECIMEN / Unknown Client Draw / Unknown 12/19/2024 12:45 PM MELTER SUPERVISOR OXYGEN FURNACE 12/19/2024 4:19 PM MELTER SUPERVISOR OXYGEN FURNACE us Megha Sanford MD LAB - BLOOD ORDERABLE S Final Result [facility] [address] [facility], Room [address] * (ABNORMAL) CRP inflammation (12/19/2024 12:45 PM MELTER SUPERVISOR OXYGEN FURNACE) [facility] CRP Inflammation 6.26(H) <5.00 mg/L 12/19/2024 5:26 PM MELTER SUPERVISOR OXYGEN FURNACE [facility] Blood BLOOD SPECIMEN / Unknown Client Draw / Unknown 12/19/2024 12:45 PM MELTER SUPERVISOR OXYGEN FURNACE 12/19/2024 4:19 PM MELTER SUPERVISOR OXYGEN FURNACE us Megha Sanford MD LAB - BLOOD ORDERABLE S Final Result [facility] [place] [facility] [address] [facility], Room [address] [place] [address] * Vitamin B12 (12/19/2024 12:45 PM MELTER SUPERVISOR O[employer]GEN FURNACE) Pathologist [facility] Vitamin B12 521 232 - 1,245 pg/mL 12/19/2024 5:26 PM MELTER SUPERVISOR OXYGEN FURNACE [facility] Blood BLOOD SPECIMEN / Unknown Client Draw / Unknown 12/19/2024 12:45 PM MELTER SUPERVISOR O[employer]GEN FURNACE 12/19/2024 4:19 PM MELTER SUPERVISOR O[employer]GEN FURNACE Megha Sanford MD LAB - BLOOD ORDERABLE S Final Result Performing Organization Address [facility]/ZIP Co de Phone Number U LABORATORY [facility] [place] [facility] [address] [facility], [address] [phone] * HIV Antigen Antibody Combo [place] (01/20/2024 10:09 AM MELTER SUPERVISOR OXYGEN FURNACE) [facility] HIV Antigen Antibody Combo Nonreactive Nonreactive 01/20/2024 10:07 PM MELTER SUPERVISOR O[employer]GEN FURNACE [facility] Comment:Negative HIV-1/-2 an tigen and antibody screening test results usually indicate the absence of HIV-1 and HIV-2 infection. However, such negative results do not rule-out acute HIV infection. If acute HIV-1 or HIV-2 infection is suspected, detection of HIV-1 or HIV-2 RNA is recommended. Blood STRUCTURE OF RIGHT UPPER LIMB / Unknown Venipuncture / Unknown 01/20/2024 10:09 AM MELTER SUPERVISOR [employer]GEN FURNACE 01/20/2024 10:09 AM MELTER SUPERVISOR [employer]GEN FURNACE Migeul Stoll MD LAB - BLOOD ORDERABLES Fi nal Result U LABORATORY [facility] [place] [facility] [address] [facility], [address] [phone] [phone] * Hepatitis C antibody (01/20/2024 10:09 AM MELTER SUPERVISOR O[employer]GEN FURNACE) [facility] Hepatitis C Antibody Nonreactive Nonreactive 01/20/2024 10:28 PM MELTER SUPERVISOR OXYGEN FURNACE [facility] Comment:A nonreactive screen ing test result [...] Unknown Venipuncture / Unknown 01/20/2024 10:09 AM MELTER SUPERVISOR O[employer]GEN FURNACE 01/20/2024 10:09 AM MELTER SUPERVISOR O[employer]GEN FURNACE us Miguel Stoll MD LAB - BLOOD ORDERABLES Fi nal Result LABORATORY [facility] [place] [facility] [address] [facility], [address] [address], [facility] [phone] * (ABNORMAL) Basic metabolic panel (12/08/2023 4:39 PM MELTER SUPERVISOR OXYGEN FURNACE) [facility] Sodium 139 135 - 145 mmol/L 12/08/2023 5:06 PM [facility] Comment:Reference intervals for this test were updated on 08/11/2023 to more accurately reflect our healthy population. There may be differences in the flagging of prior results with similar values performed with this method. Interpretation of those prior results can be made in the context of the updated reference intervals. Potassium 3.7 3.4 - 5.3 mmol/L 12/08/2023 5:06 PM [facility] Chloride 102 98 - 107 mmol/L 12/08/2023 5:06 PM [facility] Carbon Dioxide (CO2) 28 22 - 29 mmol/L 12/08/2023 5:06 PM [facility] Anion Gap 9 7 - 15 mmol/L 12/08/2023 5:06 PM [facility] Urea Nitrogen 13.7 6.0 - 20.0 mg/dL 12/08/2023 5:06 PM [facility] Creatinine 0.87 0.67 - 1.17 mg/dL 12/08/2023 5:06 PM [facility] GFR Estimate >90 >60 mL/min/1. 73m2 12/08/2023 5:06 PM MELTER SUPERVISOR [employer]GEN FURNACE [facility] - CORE LAB Calcium 9.3 8.6 - 10.0 mg/dL 12/08/2023 5:06 PM MELTER SUPERVISOR OXYGEN FURNACE [facility] - CORE LAB Glucose 108(H) 70 - 99 mg/dL 12/08/2023 5:06 PM MELTER SUPERVISOR OXYGEN FURNACE [facility] - [facility]ORE [facility] Blood STRUCTURE OF LEFT UPPER LIMB / Unknown Venipuncture / Unknown 12/08/2023 4:39 PM MELTER SUPERVISOR O[employer]GEN FURNACE 12/08/2023 4:39 PM MELTER SUPERVISOR O[employer]GEN FURNACE us Megha Sanford MD LAB - BLOOD ORDERABLE S Final Result [facility] - CORE LAB [facility] [address] [place] [address] * COLONOSCOPY (09/29/2023 9:29 AM MELTER SUPERVISOR OXYGEN FURNACE) [facility]OS[facility] [address] [place] [address] [id number] [phone] Endoscopy Department Patient Name: Demetri Castillo Procedure Date: 09/29/2023 9:29 AM Date of : 1990 Admit Type: Outpatient Age: 33 Room: [facility] PROCEDURE ROOM 02 Gender: Male Note Status: Finalized Attending MD: MEGHA SANFORD MD, Total Sedation Time: Procedure: Colonoscopy Indications: High risk colon cancer surveillance: Crohn's colitis of 8 (or more) years duration with one-third (or more) of the colon involved, currently doing well in symptomatic remission on therapies. MRE/CTE show no active inflammation. Complicated history of penetrating/fist ulizing CD s/p ileal resection, ileo-cecal resection with IC anastomosis, sigmoid colectomy, pelvic wash out (sacral osteomyelitis). Providers: MEGHA SANFORD MD, Ashley Lopez RN, SKY Montano MD: MEGHA SANFORD MD, CISCO WOOTEN MD Requesting Provider: CISCO WOOTEN MD Medicines: Monitored Anesthesia Care Complications: No immediate complications. Procedure: Pre-Anesthesia Assessment: - See EPIC H and P note After obtaining informed consent, the colonoscope was passed under direct vision. Throughout the procedure, the patient's blood pressure, pulse, and oxygen saturations were monitored continuously. The Colonoscope was introduced through the anus and advanced to the ileocolonic anastomosis. The colonoscopy was performed without difficulty. The patient tolerated the procedure well. The quality of the bowel preparation was adequate to identify polyps greater than 5 mm in size. Findings: Skin tags were found on perianal exam. The Simple Endoscopic Score for Crohn's Disease was determined based on the endoscopic appearance of the mucosa in the following segments: - Ileum: Findings include no ulcers present, no ulcerated surfaces, no affected surfaces and no narrowings. Segment score: 0. - Right Colon: Findings include no ulcers present, no ulcerated surfaces, no affected surfaces, no narrowings and no ulcers present, no ulcerated surfaces, no affected surfaces and no narrowings. Segment score: 0. - Transverse Colon: Findings include no ulcers present, no ulcerated surfaces, no affected surfaces, no narrowings and no ulcers present, no ulcerated surfaces, no affected surfaces and no narrowings. Segment score: 0. - Left Colon: Findings include no ulcers present, no ulcerated surfaces, no affected surfaces, no narrowings and no ulcers present, no ulcerated surfaces, no affected surfaces and no narrowings. Segment score: 0. - Rectum: Findings include no ulcers present, no ulcerated surfaces, no affected surfaces, no narrowings and no ulcers present, no ulcerated surfaces, no affected surfaces and no narrowings. Segment score: 0. - Total SES-CD aggregate score: 0. Four biopsies were taken every 10 cm with a cold forceps from the entire colon for Crohn's disease surveillance and dysplasia surveillance. These biopsy specimens from the ascending colon, transverse colon, descending/sigmoi d colon and rectum were sent to Pathology. The inflammation was graded as Rutgeerts Score i2a (lesions confined to the ileocolonic anastomosis). The remainder of the neoi-terminal ileum was normal. Only distal 3-5 cm could be evaluated due to looping. There was evidence of a prior end-to-side ileo-colonic anastomosis in the ascending colon. This was patent and was characterized by erosion. The anastomosis was traversed. There was evidence of a prior end-to-end colo-colonic anastomosis in the distal sigmoid colon (20 cm from anal verge). This was patent and was characterized by healthy appearing mucosa. The anastomosis was traversed. There was a dimple at the site of anastomosis with possible adherent suture material. It is possible this could be an old fistula but I favor this being part of the anastomosis. The exam was otherwise without abnormality on direct and retroflexion views. Impression: - Perianal skin tags found on perianal exam. - Simple Endoscopic Score for Crohn's Disease: 0, mucosal inflammatory changes secondary to Crohn's disease, in remission. Biopsied. - Rutgeerts Score i2a ( lesions confined to the ileocolonic anastomosis). - Patent end-to-side ileo-colonic anastomosis, characterized by erosion. (thus Rutgeert's 12a) - Patent end-to-end colo-colonic anastomosis, characterized by healthy appearing mucosa. - The examination was otherwise normal on direct and retroflexion views. Overall this exam looks excellent. He has mucosal healing. Only some mild erosion/ulceratio n at the IC anastomosis. Remainder of the ileum and colon look normal. Recommendation: - Discharge patient to home (with escort). - Resume previous diet. - Continue present medications. - Await pathology results. - Repeat colonoscopy in 2 years for surveillance. - Return to GI clinic. Electronically Signed by: Dr. Megha Sanford MEGHA SANFORD MD 09/29/2023 12:15:10 PM I was physically present for the entire viewing portion of the exam. Signature of teaching physician MEGHA SANFORD MD Number of Addenda: 0 Note Initiated On: 09/29/2023 9:29 AM Scope In: 11:39:45 AM Scope Out: 12:00:16 PM RADIOLOGY RESULTS 09/29/2023 9:29 AM MELTER SUPERVISOR OXYGEN FURNACE us Megha Sanford MD PROCEDURES Final Result RADIOLOGY RESULTS from Last 3 Months or Most Recently Relevant to Health Maintenance Insurance [place] [address] [email or web address] Member Subscriber Plan / Payer (Ef fective 2022-Present) Name:Demetri Castillo Relation to Subscriber:Self Name:Demetri Castillo Payer ID:[id number] (NAIC) Type:PPO Address: [facility] [address] [place] [id number] [facility] * Guarantor: Demetri Castillo Account Type Relation to Patient Date of Phone Billing Address Medication Therapy Self [address] [place] [id number] [employer] Advance Directives For more information, please contact: [phone] * Full Code (Latest Code Status on File) Date Activated Date Inactivated Comments 02/28/2022 4:20 AM 02/28/2022 6:03 PM All basic an d advanced life-sustaining interventions are performed as appropriate Question Answer Comments Code status determined by: Discussion with isabellee nt/ legal decision maker * Full Code Date Activated Date Inactivated Comments 12/03/2021 3:04 AM 12/04/2021 2:27 PM All basic an d advanced life-sustaining interventions are performed as appropriate Question Answer Comments Code status determined by: Discussion with patie nt/ legal decision maker Care Teams Aeronautical Inspector Relationship Specialty Start Date End Date Sushant Schreiber MD [address] [address] PCP - General Family Medicine 12/02/21 No Ref-Primary, Physician 12/02/21 Cisco Wooten MD [address] [place] [address] [phone] Fellow Gastroenterology 12/09/21 Yung Rodriguez MD [address] [facility] [address] [place] [address] [phone] Cardiovascular Disease 12/25/21 Tatianna Horne [facility] [address] [place] [address] [phone] Pharmacist Pharmacist Video News Editor 02/06/22 Billie Tucker, RN Specialty Mortgage Clerk Gastroenterology 12/10/22 Megha Sanford MD [address] [place] [address] Gastroenterology 12/25/22 Megha Sanford MD [address] [place] [address] 9[address]32 Referring Physician Gastroenterology 01/14/23 Jt Waters MD [address] [place] [address] [phone] Dermatology 01/14/23 Bhavik Segura PA-C [address] [place] [address] [phone] Physician Medical Planner Gastroenterology 04/28/23 Megha Sanford MD [address] [place] [address] [phone] Assigned Gastroenterology Provider 07/18/23 Favian Mcknight MD [address] [place] [address] [phone] Dermatology 12/09/23 Favian Mcknight MD [address] [place] [address] [phone] Assigned Surgical Provider 01/29/24 Tatianna Horne, [facility] [address] [place] [address] [phone] Assigned MTM Pharmacist 07/08/24 Lyudmila Baltazar, RN Home Infusion Hub Bander 08/29/24
--- OUTSIDE RECORDS SUMMARY | 2024-12-22 04:57 | XMS_ITS | Encounter Summary ---
Author Organization [facility] Address [address] [place] [address] Care Team Providers Care Livestock Buyer Name Role Phone Sushant Schreiber MD Primary Care Provider No Ref-Primary, Physician Unavailable [phone] Cisco Caceres MD Unavailable [phone] Yung Rodriguez MD Unavailable Tatianna Horne [facility] Unavailable [phone] Billie Tucker RN Unavailable Unavailable Paul Sanford MD Unavailable [phone] Paul Sanford MD Unavailable [phone] Jt Waters MD Unavailable Jt Waters MD Unavailable Bhavik Segura PA-C Unavailable [phone] Paul Sanford MD Unavailable [phone] Favian Mcknight MD Unavailable [phone] Favian Mcknight MD Unavailable [phone] Tatianna Horne [facility] Unavailable [phone] Lyudmila Baltazar RN Unavailable Unavailabl e Encounter Details Date Type Department Care Team (Late st Contact Info) Description 11/13/2023 [facility] [address] [place] [address] Mckenzie Lim RN Social History Tobacco Use Types Packs/Day [...] on file 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 Gender Identity Not on file Sexual Orientation Not on file documented as of this encounter Plan of Treatment Upcoming Encounters Date Type Department Care Team (Late st Contact Info) Description 01/12/2025 10:00 AM OPERATOR COMMAND SUPPORT SYSTEMS Office Visit [facility] Gastro[facility]ology Clinic [address] [phone] Paul Sanford MD [address] [place] [address] [phone] documented as of this encounter Visit Diagnoses Not on filedocumented in this encounter Care Teams Livestock Buyer Relationship Specialty Start Date End Date Sushant Schreiber MD [facility] [address] [place] [address] PCP - General Family Medicine 12/02/21 No Ref-Primary, Physician 12/02/21 Cisco Caceres MD [address] [place] [address] [address] [place], [place] 147275 Fellow Gastroenterology 12/09/21 Yung Rodriguez MD [address] [facility] [address] [place] [address] Cardiovascular Disease 12/25/21 [facility] [address] [place] [address] Pharmacist Pharmacist Public Administration Professor 02/06/22 Billie Tucker, RN Specialty Fish Processor Gastroenterology 12/10/22 Paul Sanford MD [address] [place] [address] Gastroenterology 12/25/22 Paul Sanford MD [address] [place] [address] Referring Physician Gastroenterology 01/14/23 Jt Waters MD [address] [place] [address] 267175 Dermatology 01/14/23 Jt Waters MD [address] [place] [address] 13680 Assigned Surgical Provider 01/17/23 01/28/24 Bhavik Segura PA-C [address] [place] [address] 174155 Physician Business Services Tech Gastroenterology 04/28/23 Paul Sanford MD [address] [place] [address] 22883 Assigned Gastroenterology Provider 07/18/23 Favian Mcknight MD [address] [place] [address] Dermatology 12/09/23 Favian Mcknight MD [address] [place] [address] 63506 Assigned Surgical Provider 01/29/24 Tatianna Horne [facility] [address] [place] [address] Assigned MTM Pharmacist 07/08/24 Lyudmila Baltazar, RN Home Infusion Blanket Winder Helper 08/29/24 documented as of this encounter
--- OUTSIDE RECORDS SUMMARY | 2024-12-22 04:57 | XMS_ITS | Encounter Summary ---
Author Organization [facility] Address [address] [place] [address] Care Team Providers Care Phlebotomist Associate Name Role Phone Sushant Schreiber MD Primary Care Provider [phone] No Ref-Primary, Physician Unavailable [phone] Cisco Caceres MD Unavailable [phone] Yung Rodriguez MD Unavailable Tatianna Horne [facility] Unavailable [phone] Billie Tucker RN Unavailable Unavailable Paul Sanford MD Unavailable [phone] Paul Sanford MD Unavailable [phone] Jt Waters MD Unavailable Jt Waters MD Unavailable Bhavik Segura PA-C Unavailable [phone] Paul Sanford MD Unavailable [phone] Favian Mcknight MD Unavailable [phone] Favian Mcknight MD Unavailable [phone] Tatianna Horne [facility] Unavailable [phone] Lyudmila Baltazar RN Unavailable Unavailabl e Encounter Details Date Type Department Care Team (Late st Contact Info) Description 09/11/2023 [facility] [address] [place] [address] Billie Tucker RN Social History Tobacco Use [...] on file 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 Gender Identity Not on file Sexual Orientation Not on file documented as of this encounter Plan of Treatment Upcoming Encounters Date Type Department Care Team (Late st Contact Info) Description 01/12/2025 10:00 AM CONFECTIONERY DROPS MACHINE OPERATOR Office Visit [facility] Gastroenterology Clinic [address] [place] [phone] Paul Sanford MD [address] [place] [address] 024405 documented as of this encounter Visit Diagnoses Not on filedocumented in this encounter Care Teams Phlebotomist Associate Relationship Specialty Start Date End Date Sushant Schreiber MD [facility] [address] [place] [address] PCP - General Family Medicine 12/02/21 No Ref-Primary, Physician 12/02/21 Cisco Caceres MD [address] [place] [address] [address] [place], [place] 301505 Fellow Gastroenterology 12/09/21 Yung Rodriguez MD [address] [facility] [address] [place], [place] [phone] Cardiovascular Disease 12/25/21 Tatianna Horne, [facility] [address] [place] [address] Pharmacist Pharmacist Bridge Worker Apprentice 02/06/22 Billie Tucker, RN Specialty Test Carrier Gastroenterology 12/10/22 Paul Sanford MD [address] [place] [address] Gastroenterology 12/25/22 Paul Sanford MD [address] [place] [address] Referring Physician Gastroenterology 01/14/23 Jt Waters MD [address] [place] [address] [phone] Dermatology 01/14/23 Jt Waters MD [address] [place] [address] 01863 Assigned Surgical Provider 01/17/23 01/28/24 Bhavik Segura PA-C [address] [place] [address] 384175 Physician Head Irrigator Gastroenterology 04/28/23 Paul Sanford MD [address] [place] [address] 42496 Assigned Gastroenterology Provider 07/18/23 Favian Mcknight MD [address] [place] [address] Dermatology 12/09/23 Favian Mcknight MD [address] [place] [address] 11356 Assigned Surgical Provider 01/29/24 Tatianna Horne [facility] [address] [place] [address] Assigned MTM Pharmacist 07/08/24 Lyudmila Baltazar, RN Home Infusion Press Shop Supervisor 08/29/24 documented as of this encounter
--- OUTSIDE RECORDS SUMMARY | 2024-12-22 04:57 | XMS_ITS | Encounter Summary ---
Author Organization [facility] Address [address] [place] [address] Care Team Providers Care Welder Setter Resistance Machine Name Role Phone Sushant Schreiber MD Primary Care Provider [phone] No Ref-Primary, Physician Unavailable [phone] Cisco Caceres MD Unavailable [phone] Yung Rodriguez MD Unavailable Tatianna Horne [facility] Unavailable [phone] Billie Tucker RN Unavailable Unavailable Paul Sanford MD Unavailable [phone] Paul Sanford MD Unavailable [phone] Jt Waters MD Unavailable Bhavik Segura PA-C Unavailable [phone] Paul Sanford MD Unavailable [phone] Favian Mcknight MD Unavailable [phone] Favian Mcknight MD Unavailable [phone] Tatianna Horne [facility] Unavailable [phone] Lyudmila Baltazar RN Unavailable Unavailabl e Encounter Details Date Type Department Care Team (Late st Contact Info) Description 11/28/2024 [facility] [address] [address] Denita Waddell LPN Social History Tobacco Use Types Packs/Day Years [...] on file Legal 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 Gender Identity Not on file Sexual Orientation Not on file documented as of this encounter Plan of Treatment Upcoming Encounters Date Type Department Care Team (Late st Contact Info) Description 01/12/2025 10:00 AM HOUSEKEEPING CLEANER Office Visit [facility] Gastroenterology Clinic [address] [phone] Paul Sanford MD [address] [place] [address] 814105 documented as of this encounter Visit Diagnoses Not on filedocumented in this encounter Care Teams Welder Setter Resistance Machine Relationship Specialty Start Date End Date Sushant Schreiber MD [facility] - [address] [address] PCP - General Family Medicine 12/02/21 No Ref-Primary, Physician 12/02/21 Cisco Caceres MD [address] [place] [address] [phone] Fellow Gastroenterology 12/09/21 Yung Rodriguez MD [address] [place], [place] [phone] Cardiovascular Disease 12/25/21 Tatianna Horne, [facility] [address] [place] [address] Pharmacist Pharmacist Livestock Feeder 02/06/22 Billie Tucker, RN Specialty Sdv Pilot/Navigator/Dds Operator Gastroenterology 12/10/22 Paul Sanford MD [address] [place] [address] Gastroenterology 12/25/22 Paul Sanford MD [address] [place] [address] Referring Physician Gastroenterology 01/14/23 Jt Waters MD [address] [place] [address] Dermatology 01/14/23 Bhavik Segura PA-C [address] [place] [address] Physician Robotics Mechanic Gastroenterology 04/28/23 Paul Sanford MD [address] [place] [address] Assigned Gastroenterology Provider 07/18/23 Favian Mcknight MD [address] [place] [address] Dermatology 12/09/23 Favian Mcknight MD [address] [place] [address] Assigned Surgical Provider 01/29/24 Tatianna Horne, [facility] [address] [place] [address] Assigned MTM Pharmacist 07/08/24 Lyudmila Baltazar, RN Home Infusion Spanish Medical Interpreter 08/29/24 documented as of this encounter
--- OUTSIDE RECORDS SUMMARY | 2024-12-22 04:57 | XMS_ITS | Encounter Summary ---
Author Organization [facility] Address [address] [place] [address] Care Team Providers Care Poultry Offal Worker Name Role Phone Sushant Schreiber MD Primary Care Provider [phone] No Ref-Primary, Physician Unavailable [phone] Cisco Caceres MD Unavailable [phone] Yung Rodriguez MD Unavailable Tatianna Horne [facility] Unavailable [phone] Billie Tucker RN Unavailable Unavailable Paul Sanford MD Unavailable [phone] Paul Sanford MD Unavailable [phone] Jt Waters MD Unavailable Bhavik Segura PA-C Unavailable [phone] Paul Sanford MD Unavailable [phone] Favian Mcknight MD Unavailable [phone] Favian Mcknight MD Unavailable [phone] Tatianna Horne [facility] Unavailable [phone] Lyudmila Baltazar RN Unavailable Unavailabl e Reason for Visit * Home Infusion Authorization (Routine) - Authorized Specialty Diagnoses / Procedures Referred By Contjohana t Referred To Contact Home Infusion and Injection Services [facility] [address] [place] [phone] Phone: tel: fax: Referral ID Status Reason Start Date Expiration Date V isits Requested Visits Authorized [id number] Authorized 07/21/2024 07/21/2025 1 1 Encounter Details Date Type Department Care Team (Late st Contact Info) Description 12/19/2024 1:00 PM BEARING RING ASSEMBLER Home Care Visit [facility] [address] [place] [phone] Jonnie Mcfadden, RN Social History Tobacco Use Types Packs/Day [...] on file Legal 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 BEARING RING ASSEMBLER Gender Identity Not on file Sexual Orientation Not on file documented as of this encounter Last Filed Vital Signs Vital Sign Reading Time Taken Comments Blood Pressure 124/75 12/19/2024 2:42 PM BEARING RING ASSEMBLER Pulse 76 12/19/2024 2:42 PM BEARING RING ASSEMBLER Temperature 36.7 C (98 F) 12/19/2024 2:42 PM BEARING RING ASSEMBLER Respiratory Rate 16 12/19/2024 2:42 PM BEARING RING ASSEMBLER Oxygen Saturation 98% 12/19/2024 2:42 PM BEARING RING ASSEMBLER Inhaled Oxygen Concentration - - Weight 129.3 kg (285 lb) 12/19/2024 1:05 PM BEARING RING ASSEMBLER Height 180.3 cm (5' 11) 12/19/2024 1:05 PM BEARING RING ASSEMBLER Body Mass Index 39.75 12/19/2024 1:05 PM BEARING RING ASSEMBLER documented in this encounter Progress Notes * Jonnie Mcfadden RN - 12/19/2024 1:33 PM CST Nursing Visit Note: Nurse visit today for Inflect[facility] infusion, labs and GA for Demetri Castillo. Lap Hand Tool present during visit today: Not Applicable. Intravenous Access: Labs drawn without difficulty. and Peripheral IV placed. Infusion Nursing Note: Pre-infusion Checklist: Have you had any delayed reaction since last infusion? No Have you recently had an elevated temperature, fever, chills productive cough, coughing for 3 weeksor longer or hemoptysis, abnormal vital signs, night sweats, chest pain, or have you noticed a decrease in your appetite, or noted unexplained weight loss or fatigue? No Do you have any open wounds or new incisions? No Do you have any recent or upcoming hospitalizations, surgeries, or dental procedures? Does not include esophagogastroduodenoscopy, colonoscopy, endoscopic retrograde cholangiopancreatography (ERCP), endoscopic ultrasound (EUS), dental procedures or joint aspiration/steroid injections. No Do you currently have or recently have had any signs of illness or infection or are you on any antibiotics? No Have you had any new, sudden, or worsening abdominal pain? No Have you or anyone in your household received a live vaccination in the past 4 weeks? No Have you recently been diagnosed with any new nervous system diseases or cancer diagnosis? (i.e., Multiple Sclerosis, Guillain [place], seizures, neurological changes) Are you receiving any form of radiation or chemotherapy? No Are you or , or do you have plans of in the future? No Have you been having any signs of worsening depression or suicidal ideation? No Have you had any other new onset medical symptoms? No Entyvio/Ocrevus/Tyasabri only: Have you been having any new or worsening medical problems such as issues with thinking, eyesight, balance or strength that have persisted over several days? N/A Benlysta only: Have you been having any signs of worsening depression or suicidal ideations? N/A IVIG only: Have you had any new blood clots? N/A Did the patient answer YES to any of the questions above? No Will the patient receive a medication that has an order for infusion reaction management? Yes, and all drugs and supplies are available and none have . If ordered, has the patient taken pre-medications? Yes Plan: Therapy is appropriate, will proceed with treatment. Post Infusion Assessment: Patient tolerated infusion without incident. Blood return noted pre and post infusion. Site patent and intact, free from redness, edema or discomfort. No evidence of extravasations. Access discontinued per protocol. Biologic Infusion Post Education: Call the triage nurse at your clinic or seek medical attention ifyou have chills and/or temperature greater than or equal to 100.5, uncontrolled nausea/vomiting, diarrhea, constipation, dizziness, shortness of breath, chest pain, heart palpitations, weakness or any other new or concerning symptoms, questions or concerns. You cannot have any live virus vaccines prior to or during treatment or up to 6 months post infusion. If you have an upcoming surgery, medical procedure or dental procedure during treatment, this should be discussed with your ordering physician and your surgeon/dentist. If you are having any concerning symptom, if you are unsure if you should get your next infusion orwish to speak to a provider before your next infusion, please call your resident care aid or triage nurse at your clinic to notify them so we can adequately serve you. and Lab-Only Nursing Note Labs obtained via PIV placed for infusion Time Specimen drawn: 1245 Last dose (if applicable): No Facility sent to: [facility] Tracking number: [id number] Note: A&Ox4 with VSS on RA. Denies any new or worsening symptoms r/t present illness. Endorses increase in mild symptoms approaching upcoming infusion which is baseline per pt. Tolerating infusion well, watching tv and dosing off. States Benadryl pre medication makes him drowsy. Pleasant and compliant with cares. Saline administered: 40 (ml) Supply Check: Does the patient have all the supplies they need for the next visit? Yes Next visit plan: SN[facility] 02/13/2025, confirmed with pt and service plan updated. Jonnie Mcfadden RN 12/19/2024 ING RING ASSEMBLER documented in this encounter Plan of Treatment Upcoming Encounters Date Type Department Care Team (Late st Contact Info) Description 01/12/2025 10:00 AM BEARING RING ASSEMBLER Office Visit [facility] Gastroenterology Clinic [address] [place] [address] Paul Sanford MD [address] [place] [address] [id number] documented as of this encounter Visit Diagnoses Not on filedocumented in this encounter Care Teams Poultry Offal Worker Relationship Specialty Start Date End Date Sushant Schreiber MD [facility] - [address] [address] PCP - General Family Medicine 12/02/21 No Ref-Primary, Physician 12/02/21 Cisco Caceres MD [address] [place] [address] Fellow Gastroenterology 12/09/21 Yung Rodriguez MD [address] [facility] [address] [place] [address] Cardiovascular Disease 12/25/21 Tatianna Horne, [facility] [address] [place] [address] 949145 Pharmacist Pharmacist Wet Process Miller Head 02/06/22 Billie Tucker, JANELL Specialty Alteration Inspector Gastroenterology 12/10/22 Paul Sanford MD [address] [place] [address] 086235 Gastroenterology 12/25/22 Paul Sanford MD [address] [place] [address] 294785 Referring Physician Gastroenterology 01/14/23 Jt Waters MD [address] [place] [address] Dermatology 01/14/23 Bhavik Segura PA-C [address] [place] [address] 095325 Physician Fire Alarm Mechanic Gastroenterology 04/28/23 Paul Sanford MD [address] [place] [address] Assigned Gastroenterology Provider 07/18/23 Favian Mcknight MD [address] [place] [address] MD Dermatology 12/09/23 Favian Mcknight MD [address] [place] [address]2756 Assigned Surgical Provider 01/29/24 Tatianna Horne [facility] [address] [place] [address] Assigned MTM Pharmacist 07/08/24 Lyudmila Baltazar, RN Home Infusion Electronic Engineering Draftsperson 08/29/24 documented as of this encounter
--- OUTSIDE RECORDS SUMMARY | 2024-12-22 04:57 | XMS_ITS | Encounter Summary ---
Author Organization [facility] Address [address] [place] [address] Care Team Providers Care Drill Press Operator Numerical Control Name Role Phone Sushant Schreiber MD Primary Care Provider [phone] No Ref-Primary, Physician Unavailable [phone] Cisco Caceres MD Unavailable [phone] Yung Rodriguez MD Unavailable Tatianna Horne [facility] Unavailable [phone] Billie Tucker RN Unavailable Unavailable Paul Sanford MD Unavailable [phone] Paul Sanford MD Unavailable [phone] Jt Waters MD Unavailable Bhavik Segura PA-C Unavailable [phone] Paul Sanford MD Unavailable [phone] Favian Mcknight MD Unavailable [phone] Favian Mcknight MD Unavailable [phone] Tatianna Hrone [facility] Unavailable [phone] Lyudmila Baltazar RN Unavailable Unavailabl e Encounter Details Date Type Department Care Team (Late st Contact Info) Description 10/27/2024 Home Infusion [facility] [address] [place] [address] Navjot Mantilla, [facility] [address] [facility] [place] [address] Crohn's disease of both small and large intestine with other complication (H) Social History Tobacco Use Types Packs/Day Years [...] on file 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 Gender Identity Not on file Sexual Orientation Not on file documented as of this encounter Plan of Treatment Upcoming Encounters Date Type Department Care Team (Late st Contact Info) Description 01/12/2025 10:00 AM WINDING RACK OPERATOR Office Visit [facility] Gastroenterology Clinic [address] [place] [phone] Paul Sanford MD [address] [place] [address] documented as of this encounter Visit Diagnoses Diagnosis Crohn's disease of both small and large intestine with other complication (H) documented in this encounter Care Teams Drill Press Operator Numerical Control Relationship Specialty Start Date End Date Sushant Schreiber MD [facility] [address] [place] [address] PCP - General Family Medicine 12/02/21 No Ref-Primary, Physician 12/02/21 Cisco Caceres MD [address] [place] [address] 284 [place], [place] [phone] Fellow Gastroenterology 12/09/21 Yung Rodriguez MD [address], [place] [address] [place] [address] Cardiovascular Disease 12/25/21 Tatianna Horne, [facility] [address] [place] [address] 095515 Pharmacist Pharmacist Logistics Director 02/06/22 Billie Tucker, RN Specialty Oil Field Caser Gastroenterology 12/10/22 Paul Sanford MD [address] [place] [address] Gastroenterology 12/25/22 Paul Sanford MD [address] [place] [address] Referring Physician Gastroenterology 01/14/23 Jt Waters MD [address] [place] [address] Dermatology 01/14/23 Bhavik Segura PA-C [address] [place] [address]1808 Physician Resource Development Manager Gastroenterology 04/28/23 Paul Sanford MD [address] [place] [address] Assigned Gastroenterology Provider 07/18/23 Favian Mcknight MD [address] [place] [address] Dermatology 12/09/23 Favian Mcknight MD [address] [place] [address]24 Assigned Surgical Provider 01/29/24 Tatianna Honre, [facility] [address] [place] [address] Assigned MTM Pharmacist 07/08/24 Lyudmila Baltazar, RN Home Infusion Tax Intern 08/29/24 documented as of this encounter
--- OUTSIDE RECORDS SUMMARY | 2024-12-22 04:57 | XMS_ITS | Encounter Summary ---
Author Organization [facility] Address [address] [place] [address] Care Team Providers Care Landscape Architecture Professor Name Role Phone Sushant Schreiber MD Primary Care Provider [phone] No Ref-Primary, Physician Unavailable [phone] Cisco Caceres MD Unavailable [phone] Yung Rodriguez MD Unavailable Tatianna Horne [facility] Unavailable [phone] Billie Tucker RN Unavailable Unavailable Paul Sanford MD Unavailable [phone] Paul Sanford MD Unavailable [phone] Jt Waters MD Unavailable Jt Waters MD Unavailable Bhavik Segura PA-C Unavailable [phone] Paul Sanford MD Unavailable [phone] Favian Mcknight MD Unavailable [phone] Favian Mcknight MD Unavailable [phone] Tatianna Horne [facility] Unavailable [phone] Lyudmila Baltazar RN Unavailable Unavailabl e Encounter Details Date Type Department Care Team (Late st Contact Info) Description 09/21/2023 [facility] Gastroenterology Clinic [place] [address] [facility] 4th [place] [address] Mckenzie Lim RN Social History [...] on file 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 Gender Identity Not on file Sexual Orientation Not on file documented as of this encounter Plan of Treatment Upcoming Encounters Date Type Department Care Team (Late st Contact Info) Description 01/12/2025 10:00 AM SPRING SALVAGE WORKER Office Visit [facility] Gastroenterology Clinic [address] [phone] Paul Sanford MD [address] [place] [address] 531745 documented as of this encounter Visit Diagnoses Not on filedocumented in this encounter Care Teams Landscape Architecture Professor Relationship Specialty Start Date End Date Sushant Schreiber MD [facility] [address] [place] [address] PCP - General Family Medicine 12/02/21 No Ref-Primary, Physician 12/02/21 Cisco Caceres MD [address] [place] [address] 284 [place], [place] 673075 Fellow Gastroenterology 12/09/21 Yung Rodriguez MD [address] [facility] [address] [place] [address] Cardiovascular Disease 12/25/21 [facility] [address] [place] [address] Pharmacist Pharmacist Paper Bag Making Machinist 02/06/22 Billie Tucker, RN Specialty Director Clinical Pharmacology Gastroenterology 12/10/22 Paul Sanford MD [address] [place] [address] Gastroenterology 12/25/22 Paul Sanford MD [address] [place] [address] Referring Physician Gastroenterology 01/14/23 Jt Waters MD [address] [place] [address] 910605 Dermatology 01/14/23 Jt Waters MD [address] [place] [address] Assigned Surgical Provider 01/17/23 01/28/24 Bhavik Segura PA-C [address] [place] [address] 987285 Physician Fermentation Scientist Gastroenterology 04/28/23 Paul Sanford MD [address] [place] [address] Assigned Gastroenterology Provider 07/18/23 Favian Mcknight MD [address] [place] [address] Dermatology 12/09/23 Favian Mcknight MD [address] [place] [address] Assigned Surgical Provider 01/29/24 Tatianna Horne [facility] [address] [place] [address] Assigned MTM Pharmacist 07/08/24 Lyudmila Baltazar, RN Home Infusion Manager Disaster Recovery 08/29/24 documented as of this encounter
--- OUTSIDE RECORDS SUMMARY | 2024-12-22 04:57 | XMS_ITS | Encounter Summary ---
Author Organization [facility] Address [address] [place] [address] Care Team Providers Care Sap Plant Maintenance Consultant Name Role Phone Sushant Schreiber MD Primary Care Provider [phone] No Ref-Primary, Physician Unavailable [phone] Cisco Caceres MD Unavailable [phone] Yung Rodriguez MD Unavailable Tatianna Horne [facility] Unavailable [phone] Billie Tucker RN Unavailable Unavailable Paul Sanford MD Unavailable [phone] Paul Sanford MD Unavailable [phone] Jt Waters MD Unavailable Jt Waters MD Unavailable Bhavik Segura PA-C Unavailable [phone] Paul Sanford MD Unavailable [phone] Favian Mcknight MD Unavailable [phone] Favian Mcknight MD Unavailable [phone] Tatianna Horne [facility] Unavailable [phone] Lyudmila Baltazar RN Unavailable Unavailabl e Encounter Details Date Type Department Care Team (Late st Contact Info) Description 09/15/2023 [facility] Gastroenterology Clinic [place] [id number] [facility] 4th [place] [address] Mckenzie Velázquez RN Social History Tobacco Use Types Packs/Day [...] on file 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 Gender Identity Not on file Sexual Orientation Not on file documented as of this encounter Plan of Treatment Upcoming Encounters Date Type Department Care Team (Late st Contact Info) Description 01/12/2025 10:00 AM CASHIER AND SALESPERSON Office Visit [facility] Gastroenterology Clinic [address] [phone] Paul Sanford MD [address] [place] [address] 743585 documented as of this encounter Visit Diagnoses Not on filedocumented in this encounter Care Teams Sap Plant Maintenance Consultant Relationship Specialty Start Date End Date Sushant Schreiber MD [facility] [address] [place] [address] PCP - General Family Medicine 12/02/21 No Ref-Primary, Physician 12/02/21 Cisco Caceres MD [address] [place] [address] 284 [place], [place] 253335 Fellow Gastroenterology 12/09/21 Yung Rodriguez MD [address] [facility] [address] [place] [address] Cardiovascular Disease 12/25/21 [facility] [address] [place] [address] Pharmacist Pharmacist Set Up Mold Technician 02/06/22 Billie Tucker, RN Specialty Hatchery Employee Gastroenterology 12/10/22 Paul Sanford MD [address] [place] [address] Gastroenterology 12/25/22 Paul Sanford MD [address] [place] [address]76 Referring Physician Gastroenterology 01/14/23 Jt Waters MD [address] [place] [address] 430085 Dermatology 01/14/23 Jt Waters MD [address] [place] [address] 05273 Assigned Surgical Provider 01/17/23 01/28/24 Bhavik Segura PA-C [address] [place] [address] 930235 Physician Healthcare Market Consultant Gastroenterology 04/28/23 Paul Sanford MD [address] [place] [address] Assigned Gastroenterology Provider 07/18/23 Favian Mcknight MD [address] [place] [address] Dermatology 12/09/23 Favian Mcknight MD [address] [place] [address]2100 Assigned Surgical Provider 01/29/24 Tatianna Horne [facility] [address] [place] [address] Assigned MTM Pharmacist 07/08/24 Lyudmila Baltazar, RN Home Infusion Home Economist 08/29/24 documented as of this encounter
--- OUTSIDE RECORDS SUMMARY | 2024-12-22 04:57 | XMS_ITS | Encounter Summary ---
Author Organization [facility] Address [address] [place] [address] Care Team Providers Care Commission Specialist Name Role Phone Sushant Schreiber MD Primary Care Provider No Ref-Primary, Physician Unavailable [phone] Cisco Caceres MD Unavailable [phone] Yung Rodriguez MD Unavailable Tatianna Horne [facility] Unavailable [phone] Billie Tucker RN Unavailable Unavailable Paul Sanford MD Unavailable [phone] Paul Sanford MD Unavailable [phone] Jt Waters MD Unavailable Jt Waters MD Unavailable Bhavik Segura PA-C Unavailable [phone] Paul Sanford MD Unavailable [phone] Favian Mcknight MD Unavailable [phone] Favian Mcknight MD Unavailable [phone] Tatianna Horne [facility] Unavailable [phone] Lyudmila Baltazar RN Unavailable Unavailabl e Encounter Details Date Type Department Care Team (Late st Contact Info) Description 09/15/2023 [facility] Gastroenterology Clinic [place] [address] [facility] 4th [place] [address] Mckenzie Velázquez RN Social History [...] file Legal 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 SPRING TESTER Gender Identity Not on file Sexual Orientation Not on file documented as of this encounter Plan of Treatment Upcoming Encounters Date Type Department Care Team (Late st Contact Info) Description 01/12/2025 10:00 AM SPRING TESTER Office Visit [facility] Gastroenterology Clinic [address] [phone] Paul Sanford MD [address] [place] [address] 905655 documented as of this encounter Visit Diagnoses Not on filedocumented in this encounter Care Teams Commission Specialist Relationship Specialty Start Date End Date Sushant Schreiber MD [facility] [address] [place] [address] PCP - General Family Medicine 12/02/21 No Ref-Primary, Physician 12/02/21 Cisco Caceres MD [address] [place] [address] 284 [place], [place] 423635 Fellow Gastroenterology 12/09/21 Yung Rodriguez MD [address] [facility] [address] [place] [address] Cardiovascular Disease 12/25/21 [facility] [address] [place] [address] Pharmacist Pharmacist Large Animal Veterinarian 02/06/22 Billie Tucker, RN Specialty Building Maintenance Superintendent Gastroenterology 12/10/22 Paul Sanford MD [address] [place] [address] Gastroenterology 12/25/22 Paul Sanford MD [address] [place] [address]197 Referring Physician Gastroenterology 01/14/23 Jt Waters MD [address] [place] [address] 856175 Dermatology 01/14/23 Jt Waters MD [address] [place] [address] 55893 Assigned Surgical Provider 01/17/23 01/28/24 Bhavik Segura PA-C [address] [place] [address] 384045 Physician Pet Feeder Gastroenterology 04/28/23 Paul Sanford MD [address] [place] [address]1051 Assigned Gastroenterology Provider 07/18/23 Favian Mcknight MD [address] [place] [address] Dermatology 12/09/23 Favian Mcknight MD [address] [place] [address] 54421 Assigned Surgical Provider 01/29/24 Tatianna Horne [facility] [address] [place] [address] Assigned MTM Pharmacist 07/08/24 Lyudmila Baltazar, RN Home Infusion Senior Geologist 08/29/24 documented as of this encounter
--- OUTSIDE RECORDS SUMMARY | 2024-12-22 04:57 | XMS_ITS | Encounter Summary ---
Author Organization [place] Address [address] [place] [address] Care Team Providers Care Lead Simulation Modeling Engineer Name Role Phone Sushant Schreiber MD Primary Care Provider [phone] No Ref-Primary, Physician Unavailable [phone] Cisco Caceres MD Unavailable [phone] Yung Rodriguez MD Unavailable Tatianna Horne [facility] Unavailable +[phone] Billie Tucker RN Unavailable Unavailable Paul Sanford MD Unavailable +[phone] Paul Sanford MD Unavailable [phone] Jt Waters MD Unavailable Bhavik Segura PA-C Unavailable +[phone] Paul Sanford MD Unavailable +[phone] Favian Mcknight MD Unavailable [phone] Favian Mcknight MD Unavailable +[phone] Tatianna Horne [facility] Unavailable +[phone] Lyudmila Baltazar RN Unavailable Unavailabl e Encounter Details Date Type Department Care Team (Late st Contact Info) Description 12/06/2024 MyC Medical Advice [address] [address] Denita Waddell LPN Social History [...] on file 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 Gender Identity Not on file Sexual Orientation Not on file documented as of this encounter Plan of Treatment Upcoming Encounters Date Type Department Care Team (Late st Contact Info) Description 01/12/2025 10:00 AM ECOMMERCE MARKETING MANAGER Office Visit [facility] [address] [phone] Paul Sanford MD [address] [place] [address] 233535 documented as of this encounter Visit Diagnoses Not on filedocumented in this encounter Care Teams Lead Simulation Modeling Engineer Relationship Specialty Start Date End Date Sushant Schreiber MD [facility] - [address] [address] PCP - General Family Medicine 12/02/21 No Ref-Primary, Physician 12/02/21 Cisco Caceres MD [address] [place] [address] 195565 Fellow Gastroenterology 12/09/21 Yung Rodriguez MD [address] [place], [place] 260255 Cardiovascular Disease 12/25/21 Tatianna Horne, [facility] [address] [place] [address] Pharmacist Pharmacist Canvassing Manager 02/06/22 Billie Tucker, RN Specialty Data Engineer Gastroenterology 12/10/22 Paul Sanford MD [address] [place] [address] Gastroenterology 12/25/22 Paul Sanford MD [address] [place] [address] 586[address] Referring Physician Gastroenterology 01/14/23 Jt Waters MD [address] [place] [address] Dermatology 01/14/23 Bhavik Segura PA-C [address] [place] [address] 52977 Physician Hammerer Tab Gastroenterology 04/28/23 Paul Sanford MD [address] [place] [address] 15[address] Assigned Gastroenterology Provider 07/18/23 Favian Mcknight MD [address] [place] [address] Dermatology 12/09/23 Favian Mcknight MD [address] [place] [address]3074 Assigned Surgical Provider 01/29/24 Tatianna Horne, [facility] [address] [place] [address]59 Assigned MTM Pharmacist 07/08/24 Lyudmila Baltazar, RN Home Infusion Skimmer Scoop Operator 08/29/24 documented as of this encounter
--- OUTSIDE RECORDS SUMMARY | 2024-12-22 04:57 | XMS_ITS | Encounter Summary ---
Author Organization [place] Address [address] [place] [address] 63367 Care Team Providers Care Medical Librarian Name Role Phone Sushant Schreiber MD Primary Care Provider [phone] No Ref-Primary, Physician Unavailable [phone] Cisco Caceres MD Unavailable [phone] Yung Rodriguez MD Unavailable Tatianna Horne [facility] Unavailable +[phone] Billie Tucker RN Unavailable Unavailable Paul Sanford MD Unavailable +[phone] Paul Sanford MD Unavailable [phone] Jt Waters MD Unavailable Jt Waters MD Unavailable Bhavik Segura PA-C Unavailable [phone] Paul Sanford MD Unavailable [phone] Favian Mcknight MD Unavailable [phone] Favian Mcknight MD Unavailable [phone] 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 Gender Identity Not on file Sexual Orientation Not on file documented as of this encounter Plan of Treatment Upcoming Encounters Date Type Department Care Team (Late st Contact Info) Description 01/12/2025 10:00 AM VOLUNTEER SERVICES MANAGER Office Visit [facility] Gastroenterology Clinic [address] [place] [phone] Paul Sanford MD [address] [place] [address] 023265 documented as of this encounter Visit Diagnoses Not on filedocumented in this encounter Care Teams Medical Librarian Relationship Specialty Start Date End Date Sushant Schreiber MD [facility] [address] [place] [address] PCP - General Family Medicine 12/02/21 No Ref-Primary, Physician 12/02/21 Cisco Caceres MD [address] [place] [address] 284 [place], [place] 620735 Fellow Gastroenterology 12/09/21 Yung Rodriguez MD [address] [facility] [address] [place], [place] 105675 Cardiovascular Disease 12/25/21 Tatianna Horne, [facility] [address] [place] [address] Pharmacist Pharmacist Director Transportation 02/06/22 Billie Tucker, RN Specialty Boxing Machine Operator Gastroenterology 12/10/22 Paul Sanford MD [address] [place] [address] Gastroenterology 12/25/22 Paul Sanford MD [address] [place] [address] Referring Physician Gastroenterology 01/14/23 Jt Waters MD [address] [place] [address] 940175 Dermatology 01/14/23 Jt Waters MD [address] [place] [address] 91584 Assigned Surgical Provider 01/17/23 01/28/24 Bhavik Segura PA-C [address] [place] [address] 090435 Physician Rails Developer Gastroenterology 04/28/23 Paul Sanford MD [address] [place] [address] 24635 Assigned Gastroenterology Provider 07/18/23 Favian Mcknight MD [address] [place] [address] Dermatology 12/09/23 Favian Mcknight MD [address] [place] [place] [address] 80104 Assigned Surgical Provider 01/29/[address] [facility] [address] [place] [address] Assigned MTM Pharmacist 07/08/24 Lyudmila Baltazar, RN Home Infusion Street Worker 08/29/24 documented as of this encounter
--- OUTSIDE RECORDS SUMMARY | 2024-12-22 04:57 | XMS_ITS | Encounter Summary ---
Author Organization [place] Address [address] [place] [address] 11777 Care Team Providers Care Blending Plant Operator Name Role Phone Sushant Schreiber MD Primary Care Provider [phone] No Ref-Primary, Physician Unavailable [phone] Cisco Caceres MD Unavailable [phone] Yung Rodriguez MD Unavailable Tatianna Horne [facility] Unavailable [phone] Billie Tucker RN Unavailable Unavailable Paul Sanford MD Unavailable [phone] Paul Sanford MD Unavailable [phone] Jt Waters MD Unavailable Jt Waters MD Unavailable Bhavik Segura PA-C Unavailable [phone] Paul Sanford MD Unavailable [phone] Favian Mcknight MD Unavailable [phone] Favian Mcknight MD Unavailable [phone] Tatianna Horne [facility] Unavailable [phone] Lyudmila Baltazar RN Unavailable Unavailabl e Encounter Details Date Type Department Care Team (Late st Contact Info) Description 11/11/2023 [facility] [address] 4th [place] [address] Hang, Allison Social History Tobacco [...] on file Legal 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 BOOM OPERATOR Gender Identity Not on file Sexual Orientation Not on file documented as of this encounter Plan of Treatment Upcoming Encounters Date Type Department Care Team (Late st Contact Info) Description 01/12/2025 10:00 AM BOOM OPERATOR Office Visit [facility] Gastroenterology Clinic [address] [phone] Paul Sanford MD [address] [place] [address] 909845 documented as of this encounter Visit Diagnoses Not on filedocumented in this encounter Care Teams Blending Plant Operator Relationship Specialty Start Date End Date Sushant Schreiber MD [facility] [address] [place] [address] PCP - General Family Medicine 12/02/21 No Ref-Primary, Physician 12/02/21 Cisco Caceres MD [address] [place] [address] 284 [place], [place] 131385 Fellow Gastroenterology 12/09/21 Yung Rodriguez MD [address] [facility] [address] [place], [place] 751535 Cardiovascular Disease 12/25/21 Tatianna Horne, [facility] [address] [place] [address] Pharmacist Pharmacist Axle And Frame Mechanic 02/06/22 Billie Tucker, RN Specialty Research Intern Gastroenterology 12/10/22 Paul Sanford MD [address] [place] [address] Gastroenterology 12/25/22 Paul Sanford MD [address] [place] [address] 20537 Referring Physician Gastroenterology 01/14/23 Jt Waters MD [address] [place] [address] Dermatology 01/14/23 Jt Waters MD [address] [place] [address] 65834 Assigned Surgical Provider 01/17/23 01/28/24 Bhavik Segura PA-C [address] [place] [address]651 Physician Safety Scientist Gastroenterology 04/28/23 Paul Sanford MD [address] [place] [address] 09937 Assigned Gastroenterology Provider 07/18/23 Favian Mcknight MD [address] [place] [address] Dermatology 12/09/23 Favian Mcknight MD [address] [place] [address] 95171 Assigned Surgical Provider 01/29/24 Tatianna Horne [facility] [address] [place] [address] Assigned MTM Pharmacist 07/08/24 Lyudmila Baltazar, RN Home Infusion Cnc Milling Machine Operator 08/29/24 documented as of this encounter
--- OUTSIDE RECORDS SUMMARY | 2024-12-22 04:57 | XMS_ITS | Encounter Summary ---
Author Organization [place] Address [address] [place] [address] Care Team Providers Care Consulting Property Manager Name Role Phone Sushant Schreiber MD Primary Care Provider [phone] No Ref-Primary, Physician Unavailable [phone] Cisco Caceres MD Unavailable [phone] Sabiha Hogan APRN, CNP Unavailable [phone] Yung Rodriguez MD Unavailable Tatianna Horne [facility] Unavailable Tatianna Horne [facility] Unavailable [phone] Billie Tucker RN Unavailable Unavailable [place] PA-C Unavailable [phone] Paul Sanford MD Unavailable [phone] Paul Sanford MD Unavailable [phone] Jt Waters MD Unavailable Jt Waters MD Unavailable Bhavik Segura PA-C Unavailable [phone] Paul Sanford MD Unavailable Favian Mcknight MD Unavailable [phone] Favian Mcknight MD Unavailable [phone] Tatianna Horne [facility] Unavailable Lyudmila Baltazar RN Unavailable Unavailabl e Encounter Details Date Type Department Care Team (Late Contact Info) Description 12/16/2022 MyC Medical Advice [facility] Specialty [address] [address] Coleen Tatianna Rojo, [address] [id number] Social History Tobacco Use Types Packs/Day Years [...] on file 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 No / Unsure 12/09/2022 2:55 PM SHIP SELF DEFENSE SYSTEM MK1 OPERATOR documented as of this encounter Plan of Treatment Upcoming Encounters Date Type Department Care Team (Late Contact Info) Description 01/12/2025 10:00 AM SHIP SELF DEFENSE SYSTEM MK1 OPERATOR Office Visit [facility] Gastroenterology Clinic [address] [place] [address] Paul Sanford MD [address] [place] [address] 675435 documented as of this encounter Visit Diagnoses Not on filedocumented in this encounter Care Teams Consulting Property Manager Relationship Specialty Start Date End Date Sushant Schreiber MD [facility] [address] [place] [address] PCP - General Family Medicine 12/02/21 No Ref-Primary, Physician 12/02/21 Cisco Caceres MD [address] [place] [address] [facility] [address] [place] [address] Fellow Gastroenterology 12/09/21 Sabiha Hogan APRN CURRICULUM DESIGNER [address] [facility] [place] 454275 Assigned Heart and Vascular Provider 12/15/21 02/13/23 Yung Rodriguez MD [address] [place], [place] 865765 Cardiovascular Disease 12/25/21 [facility] [address] [place] [address] Pharmacist Pharmacist Postpartum Rn 02/06/22 [facility] 9[address] [place], [place] 183545 Assigned MTM Pharmacist 08/13/22 Billie Tucker, RN Specialty Warranty Manager Gastroenterology 12/10/22 [place], [facility] [address] [place] [address] Physician Training And Development Head Dermatology 12/25/22 01/13/23 Paul Sanford MD [address] [place], [place] 923845 Gastroenterology 12/25/22 Paul Sanford MD [address] [place], [place] 961725 Referring Physician Gastroenterology 01/14/23 Jt Waters MD 500 [place] [address] Dermatology 01/14/23 Jt Waters MD [address] [place] [address] Assigned Surgical Provider 01/17/23 01/28/24 Bhavik Segura PA-C [address] [place] [address] 710865 Physician Training And Development Head Gastroenterology 04/28/23 Paul Sanford MD [address] [place] [address] Assigned Gastroenterology Provider 07/18/23 Favian Mcknight MD [address] [place] [address] 442305 Dermatology 12/09/23 Favian Mcknight MD [address] [place] [address] 15379 Assigned Surgical Provider 01/29/24 Tatianna Horne [facility] [address] [place] [address] 405485 Assigned MTM Pharmacist 07/08/24 Lyudmila Baltazar, RN Home Infusion Congregational Care Pastor 08/29/24 documented as of this encounter
--- OUTSIDE RECORDS SUMMARY | 2024-12-22 04:57 | XMS_ITS | Encounter Summary ---
Author Organization [place] Address [address] [place] [address] Care Team Providers Care Security Operations Specialist Name Role Phone Sushant Schreiber MD Primary Care Provider No Ref-Primary, Physician Unavailable [phone] Cisco Caceres MD Unavailable [phone] Yung Rodriguez MD Unavailable Tatianna Horne [facility] Unavailable [phone] Billie Tucker RN Unavailable Unavailable Paul Sanford MD Unavailable +[phone] Paul Sanford MD Unavailable [phone] Jt Waters MD Unavailable Jt Waters MD Unavailable Bhavik Segura PA-C Unavailable +[phone] Paul Sanford MD Unavailable [phone] Favian Mcknight MD Unavailable [phone] Favian Mcknight MD Unavailable [phone] Tatianna Horne [facility] Unavailable [phone] Lyudmila Baltazar RN Unavailable Unavailabl e Encounter Details Date Type Department Care Team (Late st Contact Info) Description 11/13/2023 [facility] Clinic [address] 4th [place] [address] Mckenzie Lim RN Social History [...] on file 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 Gender Identity Not on file Sexual Orientation Not on file documented as of this encounter Plan of Treatment Upcoming Encounters Date Type Department Care Team (Late st Contact Info) Description 01/12/2025 10:00 AM DRAW BENCH OPERATOR HELPER Office Visit [facility] Gastroenterology Clinic [address] [phone] Paul Sanford MD [address] [place] [address] 764285 documented as of this encounter Visit Diagnoses Not on filedocumented in this encounter Care Teams Security Operations Specialist Relationship Specialty Start Date End Date Sushant Schreiber MD [facility] [address] [place] [address] PCP - General Family Medicine 12/02/21 No Ref-Primary, Physician 12/02/21 Cisco Caceres MD [address] [place] [address] 284 [place], [place] 396465 Fellow Gastroenterology 12/09/21 Yung Rodriguez MD [address] [facility] [address] [place] [address] Cardiovascular Disease 12/25/21 [facility] 9[address] [place] [address] Pharmacist Pharmacist User Interface Engineer 02/06/22 Billie Tucker, RN Specialty Floral Department Specialist Gastroenterology 12/10/22 Paul Sanford MD [address] [place] [address] 74[address] Gastroenterology 12/25/22 Paul Sanford MD [address] [place] [address] 82064 Referring Physician Gastroenterology 01/14/23 Jt Waters MD [address] [place] [address] 077605 Dermatology 01/14/23 Jt Waters MD [address] [place] [address] 81212 Assigned Surgical Provider 01/17/23 01/28/24 Bhavik Segura PA-C [address] [place] [address] 161505 Physician Computed Tomography Technologist Gastroenterology 04/28/23 Paul Sanford MD [address] [place] [address] Assigned Gastroenterology Provider 07/18/23 Favian Mcknight MD [address] [place] [address] Dermatology 12/09/23 Favian Mcknight MD [address] [place] [address] 94231 Assigned Surgical Provider 01/29/24 Tatianna Horne [facility] [address] [place] [address] Assigned MTM Pharmacist 07/08/24 Lyudmila Baltazar, RN Home Infusion Heater Furnace 08/29/24 documented as of this encounter
--- OUTSIDE RECORDS SUMMARY | 2024-12-22 04:57 | XMS_ITS | Encounter Summary ---
Author Organization [place] Address [address] [place] [address] 8[address] Care Team Providers Care Food Mobile Driver Name Role Phone Sushant Schreiber MD Primary Care Provider No Ref-Primary, Physician Unavailable [phone] Cisco Caceres MD Unavailable [phone] Yung Rodriguez MD Unavailable Tatianna Horne [facility] Unavailable [phone] Billie Tucker RN Unavailable Unavailable Paul Sanford MD Unavailable [phone] Paul Sanford MD Unavailable [phone] Jt Waters MD Unavailable Bhavik Segura PA-C Unavailable +[phone] Paul Sanford MD Unavailable [phone] Favian Mcknight MD Unavailable [phone] Favian Mcknight MD Unavailable [phone] Tatianna Horne [facility] Unavailable [phone] Lyudmila Baltazar RN Unavailable Unavailabl e Encounter Details Date Type Department Care Team (Late st Contact Info) Description 12/18/2024 [facility] [address] [facility] 2nd [place] [address] Tatianna Horne, [address] [address] Social History Tobacco Use Types Packs/Day Years [...] on file Legal 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 FIELD SUPERINTENDENT Gender Identity Not on file Sexual Orientation Not on file documented as of this encounter Plan of Treatment Upcoming Encounters Date Type Department Care Team (Late st Contact Info) Description 01/12/2025 10:00 AM FIELD SUPERINTENDENT Office Visit [facility] Gastroenterology Clinic [address] [place] [phone] Paul Sanford MD [address] [place] [address] 768[address] documented as of this encounter Visit Diagnoses Not on filedocumented in this encounter Care Teams Food Mobile Driver Relationship Specialty Start Date End Date Sushant Schreiber MD [facility] [address] [place] [address] PCP - General Family Medicine 12/02/21 No Ref-Primary, Physician 12/02/21 Cisco Caceres MD [address] [place] [address] 284 [place] [address] Fellow Gastroenterology 12/09/21 Yung Rodriguez MD [address] [place] [address] Cardiovascular Disease 12/25/21 Tatianna Horne, [facility] [address] [place] [address] Pharmacist Pharmacist Hospital Ward Clerk 02/06/22 Billie Tucker, RN Specialty Mess Attendant Crew Gastroenterology 12/10/22 Paul Sanford MD [address] [place] [address] Gastroenterology 12/25/22 Paul Sanford MD [address] [place] [address] 01661 Referring Physician Gastroenterology 01/14/23 Jt Waters MD [address] [place] [address] 659585 Dermatology 01/14/23 Bhavik Segura PA-C [address] [place] [address] 217075 Physician Ornament Stitcher Gastroenterology 04/28/23 Paul Sanford MD [address] [place] [address] 66[address] Assigned Gastroenterology Provider 07/18/23 Favian Mcknight MD [address] [place] [address] 072475 Dermatology 12/09/23 Favian Mcknight MD [address] [place] [address]80 Assigned Surgical Provider 01/29/24 Tatianna Horne [facility] [address] [place] [address] Assigned MTM Pharmacist 07/08/24 Lyudmila Baltazar, RN Home Infusion Line Prep Cook 08/29/24 documented as of this encounter
--- OUTSIDE RECORDS SUMMARY | 2024-12-22 04:57 | XMS_ITS | Encounter Summary ---
Author Organization [facility] Address [address] [place] [address] Care Team Providers Care Spareribs Trimmer Name Role Phone Sushant Schreiber MD Primary Care Provider [phone] No Ref-Primary, Physician Unavailable [phone] Cisco Caceres MD Unavailable [phone] Yung Rodriguez MD Unavailable Tatianna Horne [facility] Unavailable [phone] Billie Tucker RN Unavailable Unavailable Paul Sanford MD Unavailable [phone] Paul Sanford MD Unavailable [phone] Jt Waters MD Unavailable Bhavik Segura PA-C Unavailable +[phone] Paul Sanford MD Unavailable [phone] Favian Mcknight MD Unavailable [phone] Favian Mcknight MD Unavailable [phone] Tatianna Horne [facility] Unavailable [phone] Lyudmila Baltazar RN Unavailable Unavailabl e Encounter Details Date Type Department Care Team (Late st Contact Info) Description 12/06/2024 Telephone [facility] Gastro Procedure [address] 3[address] [place] [address] Denita Waddell LPN Social History Tobacco Use [...] on file 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 Gave directions and prep verbally. My chart message sent with instructions on 11/03/2024 (read on 11/29/2024) and reminder sent 11-28-2024 (Not read) and 12/06/2024. Patient verbalized understanding and denied having any questions. Denita Waddell LPN H WINDER MACHINE OPERATOR documented in this encounter Plan of Treatment Upcoming Encounters Date Type Department Care Team (Late st Contact Info) Description 01/12/2025 10:00 AM CLOTH WINDER MACHINE OPERATOR Office Visit [facility] Gastroenterology Clinic [address] [address] Paul Sanford MD [address] [place] [address] documented as of this encounter Visit Diagnoses Not on filedocumented in this encounter Care Teams Spareribs Trimmer Relationship Specialty Start Date End Date Sushant Schreiber MD [facility] [address] [place] [address] PCP - General Family Medicine 12/02/21 No Ref-Primary, Physician 12/02/21 Cisco Caceres MD [address] [place] [address] 284 [place], [place] 5[address] Fellow Gastroenterology 12/09/21 Yung Rodriguez MD [address], [facility] [address] [place] [address] Cardiovascular Disease 12/25/21 Tatianna Horne, [facility] [address] [place], [place] 73[address] Pharmacist Pharmacist Help Desk Assistant 02/06/22 Billie Tucker, RN Specialty Wan Support Specialist Gastroenterology 12/10/22 Paul Sanford MD [address] [place] [address] 574215 Gastroenterology 12/25/22 Paul Sanford MD [address] [place] [address] 118755 Referring Physician Gastroenterology 01/14/23 Jt Waters MD [address] [place] [address] 064405 Dermatology 01/14/23 Bhavik Segura PA-C [address] [place] [address] 315115 Physician Mortgage Processor Gastroenterology 04/28/23 Paul Sanford MD 500 [place] [address] Assigned Gastroenterology Provider 07/18/23 Favian Mcknight MD 9 [place] [address] Dermatology 12/09/23 Favian Mcknight MD 9 [place] [address] Assigned Surgical Provider 01/29/24 Tatianna Horne [facility] 9 [place] [address] Assigned MTM Pharmacist 07/08/24 Lyudmila Baltazar, RN Home Infusion Sole Layer 08/29/24 documented as of this encounter
--- OUTSIDE RECORDS SUMMARY | 2024-12-22 04:57 | XMS_ITS | Encounter Summary ---
Author Organization [place] Address [address] [place] [address] Care Team Providers Care Tour Operator Name Role Phone Sushant Schreiber MD Primary Care Provider No Ref-Primary, Physician Unavailable [phone] Cisco Caceres MD Unavailable [phone] Sabiha Hogan APRN, CNP Unavailable [phone] Yung Rodriguez MD Unavailable Tatianna Horne [facility] Unavailable Tatianna Horne [facility] Unavailable [phone] Billie Tucker RN Unavailable Unavailable Ch[place]ale Grande PA-C Unavailable [phone] Paul Sanford MD Unavailable [phone] Paul Sanford MD Unavailable [phone] Jt Waters MD Unavailable Jt Waters MD Unavailable Bhavik Segura PA-C Unavailable [phone] Paul Sanford MD Unavailable Favian Mcknight MD Unavailable [phone] Favian Mcknight MD Unavailable [phone] Tatianna Horne [facility] Unavailable Lyudmila Baltazar RN Unavailable Unavailabl e Encounter Details Date Type Department Care Team (Late Contact Info) Description 12/10/2022 MyC Medical Advice [facility] Gastroenterology Clinic [address] [phone] Diony Drummond Social History Tobacco Use Types [...] on file Legal 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 SINGER AND UNLOADER Gender Identity Not on file Sexual Orientation Not on file COVID-19 Exposure Response Date Recorded In the last 10 days, have yo u been in contact with someone who was confirmed or suspected to have Coronavirus/COVID-19? No / Unsure 12/09/2022 2:55 PM SINGER AND UNLOADER documented as of this encounter Plan of Treatment Upcoming Encounters Date Type Department Care Team (Late st Contact Info) Description 01/12/2025 10:00 AM SINGER AND UNLOADER Office Visit [facility] Gastroenterology Clinic [address] [address] Paul Sanford MD [address] [place] [address] documented as of this encounter Visit Diagnoses Not on filedocumented in this encounter Care Teams Tour Operator Relationship Specialty Start Date End Date Sushant Schreiber MD [facility] [address] [place] [address] PCP - General Family Medicine 12/02/21 No Ref-Primary, Physician 12/02/21 Cisco Caceres MD [address] [place] [address] Fellow Gastroenterology 12/09/21 Sabiha Hogan APRN MULTIMEDIA EDUCATIONAL SPECIALIST [address] [place], [place] 9568[address] Assigned Heart and Vascular Provider 12/15/21 02/13/23 Yung Rodriguez MD [address] [place], [place] [address] Cardiovascular Disease 12/25/21 [facility] [address] [place] [address] Pharmacist Pharmacist 8Th Grade Teacher 02/06/22 [facility] [address] [place] [address] Assigned MTM Pharmacist 08/13/22 Billie Tucker, JANELL Specialty Grain Handler Gastroenterology 12/10/22 Chantale Grande PA-C [address] [place], [place] 8709592 Physician Floor Assembler Dermatology 12/25/22 01/13/23 Paul Sanford MD 500 [place] [address] Gastroenterology 12/25/22 Paul Sanford MD 500 [place] [address] Referring Physician Gastroenterology 01/14/23 Jt Waters MD 500 [place] [address] Dermatology 01/14/23 Jt Waters MD 500 [place] [address] Assigned Surgical Provider 01/17/23 01/28/24 Bhavik Sgeura PA-C [address] [place] [address] Physician Floor Assembler Gastroenterology 04/28/23 Paul Sanford MD [address] [place] [address] Assigned Gastroenterology Provider 07/18/23 Favian Mcknight MD [address] [place] [address] Dermatology 12/09/23 Favian Mcknight MD [address] [place] [address] Assigned Surgical Provider 01/29/24 Tatianna Horne, [facility] [address] [place] [address] Assigned MTM Pharmacist 07/08/24 Lyudmila Baltazar, JANELL Home Infusion Artists' Model 08/29/24 documented as of this encounter
--- OUTSIDE RECORDS SUMMARY | 2024-12-22 04:58 | XMS_ITS | Encounter Summary ---
Author Organization [facility] Address [address] [place] [address] Care Team Providers Care Bleach Boiler Packer Name Role Phone Sushant Schreiber MD Primary Care Provider No Ref-Primary, Physician Unavailable [phone] Cisco Caceres MD Unavailable [phone] Sabiha Hogan APRN, CNP Unavailable [phone] Yung Rodriguez MD Unavailable Tatianna Horne [facility] Unavailable [phone] Tatianna Horne [facility] Unavailable [phone] Billie Tucker RN Unavailable Unavailable [place] PA-C Unavailable [phone] Paul Sanford MD Unavailable [phone] Paul Sanford MD Unavailable [phone] Jt Waters MD Unavailable Jt Waters MD Unavailable Bhavik Segura PA-C Unavailable [phone] Palu Sanford MD Unavailable [phone] Favian Mcknight MD Unavailable [phone] Favian Mcknight MD Unavailable [phone] Tatianna Horne [facility] Unavailable Lyudmila Baltazar RN Unavailable Unavailabl e Encounter Details Date Type Department Care Team (Late Contact Info) Description 11/25/2022 MyC Medical Advice [facility] Gastroenterology Clinic [address] [phone] Cisco Caceres MD [address] [place] [address] Social History Tobacco Use Types Packs/Day Years [...] on file Legal 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 VOCATIONAL NURSE LVN Gender Identity Not on file Sexual Orientation Not on file documented as of this encounter Plan of Treatment Upcoming Encounters Date Type Department Care Team (Late st Contact Info) Description 01/12/2025 10:00 AM VOCATIONAL NURSE LVN Office Visit [facility] Gastroenterology Clinic [address] [address] Paul Sanford MD [address] [place] [address] documented as of this encounter Visit Diagnoses Not on filedocumented in this encounter Care Teams Bleach Boiler Packer Relationship Specialty Start Date End Date Sushant Schreiber MD [facility] [address] [place] [address] PCP - General Family Medicine 12/02/21 No Ref-Primary, Physician 12/02/21 Cisco Caceres MD [address] [place] [address] Fellow Gastroenterology 12/09/21 Sabiha Hogan APRN DIGITAL MARKETING ANALYST [address] [place], [place] 5[address]05 Assigned Heart and Vascular Provider 12/15/21 02/13/23 Yung Rodriguez MD [address] [place] [address] Cardiovascular Disease 12/25/21 [facility] [address] [place] [address] Pharmacist Pharmacist Bobbin Stripper 02/06/22 [facility] [address] [place] [address] Assigned MTM Pharmacist 08/13/22 Billie Tucker, RN Specialty Health Advocate Gastroenterology 12/10/22 Chantale Grande [facility] [address] [place] [address] Physician Objective C Developer Dermatology 12/25/22 01/13/23 Paul Sanford MD 500 [place] [address] Gastroenterology 12/25/22 Paul Sanford MD 500 [place] [address] Referring Physician Gastroenterology 01/14/23 Jt Waters MD 500 [place] [address] Dermatology 01/14/23 Jt Waters MD 500 [place] [address] Assigned Surgical Provider 01/17/23 01/28/24 Bhavik Segura PA-C [address] [place] [address] Physician Objective C Developer Gastroenterology 04/28/23 Paul Sanford MD [address] [place] [address] Assigned Gastroenterology Provider 07/18/23 Favian Mcknight MD [address] [place] [address] Dermatology 12/09/23 Favian Mcknight MD [address] [place] [address] Assigned Surgical Provider 01/29/24 Tatianna Horne, [facility] [address] [place] [address] Assigned MTM Pharmacist 07/08/24 Lyudmila Baltazar, RN Home Infusion Flatbed Stitcher 08/29/24 documented as of this encounter
--- OUTSIDE RECORDS SUMMARY | 2024-12-22 04:58 | XMS_ITS | Encounter Summary ---
Author Organization [facility] Address [address] [place] [address] Care Team Providers Care Packing Line Worker Name Role Phone Sushant Schreiber MD Primary Care Provider [phone] No Ref-Primary, Physician Unavailable [phone] Cisco Caceres MD Unavailable [phone] Sabiha Hogan APRN GRADUATE STUDENT Unavailable [phone] Yung Rodriguez MD Unavailable Tatianna Horne [facility] Unavailable Tatianna Horne [facility] Unavailable [phone] Tatianna Horne [facility] Unavailable [phone] Billie Tucker RN Unavailable Unavailable [place] PA-C Unavailable [phone] Paul Sanford MD Unavailable Pual Sanford MD Unavailable Jt Waters MD Unavailable Jt Waters MD Unavailable Bhavik Segura PA-C Unavailable +[phone] Paul Sanford MD Unavailable [phone] Favian Mcknight MD Unavailable [phone] Favian Mcknight MD Unavailable [phone] Tatianna Horne [facility] Unavailable Lyudmila Baltazar RN Unavailable Unavailabl e Encounter Details Date Type Department Care Team (Late st Contact Info) Description 03/17/2022 MyC Medical Advice [facility] Gastroenterology [address] [phone] Radhika Love MA Social History Tobacco Use [...] on file Legal 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 CLIENT SOLUTIONS DIRECTOR Gender Identity Not on file Sexual Orientation [...] st Contact Info) Description 01/12/2025 10:00 AM CLIENT SOLUTIONS DIRECTOR Office Visit [facility] Gastroenterology [address] [phone] Paul Sanford MD [address] [place] [address] documented as of this encounter Visit Diagnoses Not on filedocumented in this encounter Additional Health Concerns Infection Onset Date Last Indicated Resolved Time COVID-19 02/27/2022 02/27/2022 03/20/2022 11:3 9 PM CDT documented as of this encounter Care Teams Packing Line Worker Relationship Specialty Start Date End Date Sushant Schreiber MD [address] [address] PCP - General Family Medicine 12/02/21 No Ref-Primary, Physician 12/02/21 Cisco Caceres MD [address] [place] [address] Fellow Gastroenterology 12/09/21 Sabiha Hogan APRN GRADUATE STUDENT [address] [place], [place] [address] Assigned Heart and Vascular Provider 12/15/21 02/13/23 Yung Rodriguez MD [address] [facility] [address] [place] [address] Cardiovascular Disease 12/25/21 [facility] [address] [place] [address] Pharmacist Pharmacist Retail Business Manager 02/06/22 [facility] [address] [place] [address] Assigned MTM Pharmacist 04/12/22 [facility] [address] [place] [address] Assigned MTM Pharmacist 08/13/22 Billie Tucker, JANELL Specialty Risk Control Director Gastroenterology 12/10/22 Chantale Grande PA-C [address] [place] [address] Physician Dx Board Operator Dermatology 12/25/22 01/13/23 Paul Sanford MD 500 [place] [address] Gastroenterology 12/25/22 Paul Sanford MD 500 [place] [address] Referring Physician Gastroenterology 01/14/23 Jt Waters MD 500 [place] [address] Dermatology 01/14/23 Jt Waters MD 500 [place] [address] Assigned Surgical Provider 01/17/23 01/28/24 Bhavik Segura PA-C [address] [place] [address] 509845 Physician Dx Board Operator Gastroenterology 04/28/23 Paul Sanford MD [address] [place] [address] Assigned Gastroenterology Provider 07/18/23 Favian Mcknight MD [address] [place] [address] Dermatology 12/09/23 Favian Mcknight MD [address] [place] [address] Assigned Surgical Provider 01/29/24 Tatianna Horne [facility] [address] [place] [address] Assigned MTM Pharmacist 07/08/24 Lyudmila Baltazar, RN Home Infusion Supervisor Tubing 08/29/24 documented as of this encounter
--- OUTSIDE RECORDS SUMMARY | 2024-12-22 04:58 | XMS_ITS | Encounter Summary ---
Author Organization [facility] [place] Address [address] [place] [address] Care Team Providers Care Senior Architectural Designer Name Role Phone Sushant Schreiber MD Primary Care Provider No Ref-Primary, Physician Unavailable [phone] Cisco Caceres MD Unavailable [phone] Sabiha Hogan APRN, CNP Unavailable [phone] Yung Rodriguez MD Unavailable Tatianna Horne [facility] Unavailable Tatianna Horne [facility] Unavailable [phone] Billie Tucker RN Unavailable Unavailable [place] PA-C Unavailable [phone] Paul Sanford MD Unavailable [phone] Paul Sanford MD Unavailable [phone] Jt Waters MD Unavailable Jt Waters MD Unavailable Bhavik Segura PA-C Unavailable [phone] Paul Sanford MD Unavailable [phone] Favian Mcknight MD Unavailable [phone] Favian Mcknight MD Unavailable [phone] Tatianna Horne [facility] Unavailable Lyudmila Baltazar RN Unavailable Unavailabl e Encounter Details Date Type Department Care Team (Late Contact Info) Description 12/16/2022 [facility] [address] [place] [phone] Hoda Diony Social History Tobacco Use Types [...] on file Legal 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 TESTER REGULATOR Gender Identity Not on file Sexual Orientation Not on file COVID-19 Exposure Response Date Recorded In the last 10 days, have yo u been in contact with someone who was confirmed or suspected to have Coronavirus/COVID-19? No / Unsure 12/09/2022 2:55 PM TESTER REGULATOR documented as of this encounter Plan of Treatment Upcoming Encounters Date Type Department Care Team (Late Contact Info) Description 01/12/2025 10:00 AM TESTER REGULATOR Office Visit [facility] Gastroenterology Clinic [address] [place] [address] Paul Sanford MD [address] [place] [address] documented as of this encounter Visit Diagnoses Not on filedocumented in this encounter Care Teams Senior Architectural Designer Relationship Specialty Start Date End Date Sushant Schreiber MD [facility] [address] [place] [address] PCP - General Family Medicine 12/02/21 No Ref-Primary, Physician 12/02/21 Cisco Caceres MD [address] [place] [address] 284 [place], [place] 5108[address] Fellow Gastroenterology 12/09/21 Sabiha Hogan APRN CREDIT SUPPORT SPECIALIST [address] [place], [place] [address] Assigned Heart and Vascular Provider 12/15/21 02/13/23 Yung Rodriguez MD [address] [place], [place] [address] Cardiovascular Disease 12/25/21 [facility] [address] [place] [address] Pharmacist Pharmacist Catering Coordinator 02/06/22 [facility] [address] [place] [address] 049685 Assigned MTM Pharmacist 08/13/22 Billie Tucker, RN Specialty Director Digital Strategy Gastroenterology 12/10/22 Chantale Grande, PAC[facility] [address] [place], [place] 7526[address] Physician Fine Arts Teacher Dermatology 12/25/22 01/13/23 Paul Sanford MD 500 [place] [address] Gastroenterology 12/25/22 Paul Sanford MD 500 [place] [address] Referring Physician Gastroenterology 01/14/23 Jt Waters MD 500 [place] [address] Dermatology 01/14/23 Jt Waters MD 500 [place] [address] Assigned Surgical Provider 01/17/23 01/28/24 Bhavik Segura PAC[facility]pin[facility] [address] [place] [address] Physician Fine Arts Teacher Gastroenterology 04/28/23 Paul Sanford MD [address] [place] [address] Assigned Gastroenterology Provider 07/18/23 Favian Mcknight MD [address] [place] [address] Dermatology 12/09/23 Favian Mcknight MD [address] [place] [address] Assigned Surgical Provider 01/29/24 Tatianna Horne, [facility] [address] [place] [address] Assigned MTM Pharmacist 07/08/24 Lyudmila Baltazar, RN Home Infusion Automotive Starter Repairer 08/29/24 documented as of this encounter
--- OUTSIDE RECORDS SUMMARY | 2024-12-22 04:58 | XMS_ITS | Encounter Summary ---
Author Organization [place] Address [address] [place] [address] Care Team Providers Care Furnace Loader Name Role Phone Sushant Schreiber MD Primary Care Provider No Ref-Primary, Physician Unavailable [phone] Cisco Caceres MD Unavailable [phone] Sabiha Hogan APRN, CNP Unavailable [phone] Yung Rodriguez MD Unavailable Tatianna Horne [facility] Unavailable Tatianna Horne [facility] Unavailable [phone] Billie Tucker RN Unavailable Unavailable [place] PA-C Unavailable [phone] Paul Sanford MD Unavailable [phone] Paul Sanford MD Unavailable [phone] Jt Waters MD Unavailable Jt Waters MD Unavailable Bhavik Segura PA-C Unavailable [phone] Paul Sanford MD Unavailable [phone] Favian Mcknight MD Unavailable [phone] Favian Mcknight MD Unavailable [phone] Tatianna Horne [facility] Unavailable [phone] Lyudmila Baltazar RN Unavailable Unavailabl e Encounter Details Date Type Department Care Team (Late Contact Info) Description 10/02/2022 MyC Medical Advice [facility] Gastroenterology Clinic [address] [place] [address] [phone] Cisco Caceres MD [address] [place] [address] Social History Tobacco Use Types Packs/Day Years [...] on file Legal 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 CRUTCH MAKER Gender Identity Not on file Sexual Orientation Not on file documented as of this encounter Plan of Treatment Upcoming Encounters Date Type Department Care Team (Late st Contact Info) Description 01/12/2025 10:00 AM CRUTCH MAKER Office Visit [facility] [address] [address] Paul Sanford MD [address] [place] [address] documented as of this encounter Visit Diagnoses Not on filedocumented in this encounter Care Teams Furnace Loader Relationship Specialty Start Date End Date Sushant Schreiber MD [facility] [address] [place] [address] PCP - General Family Medicine 12/02/21 No Ref-Primary, Physician 12/02/21 Cisco Caceres MD [address] [place] [address] Fellow Gastroenterology 12/09/21 Sabiha Hogan APRN DIRECTOR OF INCOME TAX [address] [place], [place] [address] Assigned Heart and Vascular Provider 12/15/21 02/13/23 Yung Rodriguez MD [address] [place] [address] Cardiovascular Disease 12/25/21 [facility] [address] [place] [address] Pharmacist Pharmacist Corporate Ethics Officer 02/06/22 [facility] [address] [place] [address] Assigned MTM Pharmacist 08/13/22 Billie Tucker, RN Specialty Manager Ship Gastroenterology 12/10/22 Chantale Grande [facility] [address] [place] [address] Physician Contaminated Land Consultant Dermatology 12/25/22 01/13/23 Paul Sanford MD 500 [place] [address] Gastroenterology 12/25/22 Paul Sanford MD 500 [place] [address] Referring Physician Gastroenterology 01/14/23 Jt Waters MD 500 [place] [address] Dermatology 01/14/23 Jt Waters MD 500 [place] [address] Assigned Surgical Provider 01/17/23 01/28/24 Bhavik Segura PA-C [address] [place] [address] Physician Contaminated Land Consultant Gastroenterology 04/28/23 Pual Sanford MD [address] [place] [address] Assigned Gastroenterology Provider 07/18/23 Favian Mcknight MD [address] [place] [address] Dermatology 12/09/23 Favian Mcknight MD [address] [place] [address] Assigned Surgical Provider 01/29/24 Tatianna Horne, [facility] [address] [place] [address] Assigned MTM Pharmacist 07/08/24 Lyudmila Baltazar, RN Home Infusion Blender Machine Operator 08/29/24 documented as of this encounter
--- OUTSIDE RECORDS SUMMARY | 2024-12-22 04:58 | XMS_ITS | Encounter Summary ---
Author Organization [place] Address [address] [place] [address] Care Team Providers Care Territory Representative Name Role Phone Sushant Schreiber MD Primary Care Provider [phone] No Ref-Primary, Physician Unavailable [phone] Cisco Caceres MD Unavailable [phone] Sabiha Hogan APRN, CNP Unavailable +[phone] Yung Rodriguez MD Unavailable Tatianna Horne [facility] Unavailable Tatianna Horne [facility] Unavailable [phone] Billie Tucker RN Unavailable Unavailable Chantale Grande PA-C Unavailable [phone] Paul Sanford MD Unavailable [phone] Paul Sanford MD Unavailable [phone] Jt Waters MD Unavailable Jt Waters MD Unavailable Bhavik Segura PA-C Unavailable +[phone] Paul Sanford MD Unavailable [phone] Favian Mcknight MD Unavailable [phone] Favian Mcknight MD Unavailable [phone] Tatianna Horne [facility] Unavailable Lyudmila Baltazar RN Unavailable Unavailabl e Encounter Details Date Type Department Care Team (Late Contact Info) Description 08/12/2022 MyC Medical Advice [facility] Gastroenterology [address] [phone] Mikala Kennedy CMA Social History Tobacco Use [...] on file Legal 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 LEGAL OFFICER Gender Identity Not on file Sexual Orientation Not on file documented as of this encounter Plan of Treatment Upcoming Encounters Date Type Department Care Team (Late Contact Info) Description 01/12/2025 10:00 AM LEGAL OFFICER Office Visit [facility] Gastroenterology [address] [address] Paul Sanford MD [address] [place] [address] 636175 documented as of this encounter Visit Diagnoses Not on filedocumented in this encounter Care Teams Territory Representative Relationship Specialty Start Date End Date Sushant Schreiber MD [facility] & [address] [address] PCP - General Family Medicine 12/02/21 No Ref-Primary, Physician 12/02/21 Cisco Caceres MD [address] [place] [address] Fellow Gastroenterology 12/09/21 Sabiha Hogan APRN DYE HOUSE VAT WORKER [address] [place] [address] Assigned Heart and Vascular Provider 12/15/21 02/13/23 Yung Rodriguez MD [address] [place] [address] Cardiovascular Disease 12/25/21 Tatianna Horne [facility] [address] [place] [address] Pharmacist Pharmacist Alto Singer 02/06/22 Tatianna Horne [facility] [address] [place] [address] Assigned MTM Pharmacist 08/13/22 Billie Tucker, JANELL Specialty Industry Analyst Gastroenterology 12/10/22 Chantale Grande [facility] [address] [place] [address] Physician Package Handler Dermatology 12/25/22 01/13/23 Paul Sanford MD 500 [place] [address] Gastroenterology 12/25/22 Paul Sanford MD [address] [place] [address] Referring Physician Gastroenterology 01/14/23 Jt Waters MD 500 [place] [address] Dermatology 01/14/23 Jt Waters MD [address] [place] [address] Assigned Surgical Provider 01/17/23 01/28/24 Bhavik Segura PA-C [address] [place] [address] Physician Package Handler Gastroenterology 04/28/23 Paul Sanford MD [address] [place] [address] Assigned Gastroenterology Provider 07/18/23 Favian Mcknight MD [address] [place] [address] MD Dermatology 12/09/23 Favian Mcknight MD [address] [place] [address] Assigned Surgical Provider 01/29/24 Tatianna Horne [facility] [address] [place] [address] Assigned MTM Pharmacist 07/08/24 Lyudmila Baltazar, RN Home Infusion Parent Coach 08/29/24 documented as of this encounter
--- OUTSIDE RECORDS SUMMARY | 2024-12-22 04:58 | XMS_ITS | Encounter Summary ---
Author Organization [place] Address [address] [place] [address] Care Team Providers Care Information Resources Director Name Role Phone Sushant Schreiber MD Primary Care Provider No Ref-Primary, Physician Unavailable [phone] Cisco Caceres MD Unavailable [phone] Yung Rodriguez MD Unavailable Tatianna Horne [facility] Unavailable [phone] Billie Tucker RN Unavailable Unavailable Paul Sanford MD Unavailable [phone] Paul Sanford MD Unavailable [phone] Jt Waters MD Unavailable Jt Waters MD Unavailable Bhavik Segura PA-C Unavailable [phone] Paul Sanford MD Unavailable [phone] Favian Mcknight MD Unavailable [phone] Favian Mcknight MD Unavailable [phone] Tatianna Horne [facility] Unavailable [phone] Lyudmila Baltazar RN Unavailable Unavailabl e Encounter Details Date Type Department Care Team (Late st Contact Info) Description 01/12/2024 Jayme Forbes [facility] Dermatologic Surgery Clinic [address] 3rd [place] [address] [facility] Social History Tobacco Use Types Packs/Day [...] on file Legal 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 MANAGER OB Gender Identity Not on file Sexual Orientation Not on file documented as of this encounter Plan of Treatment Upcoming Encounters Date Type Department Care Team (Late st Contact Info) Description 01/12/2025 10:00 AM MANAGER OB Office Visit [facility] Gastroenterology Clinic [address] [place] [phone] Paul Sanford MD [address] [place] [address] 096445 documented as of this encounter Visit Diagnoses Not on filedocumented in this encounter Care Teams Information Resources Director Relationship Specialty Start Date End Date Sushant Schreiber MD [facility] [address] [place] [address] PCP - General Family Medicine 12/02/21 No Ref-Primary, Physician 12/02/21 Cisco Caceres MD [address] [place] [address] 284 [place], [place] 131275 Fellow Gastroenterology 12/09/21 Yung Rodriguez MD [address] [facility] [address] [place], [place] [address] Cardiovascular Disease 12/25/21 Tatianna Horne, [facility] [address] [place] [address] Pharmacist Pharmacist Congressional Representative 02/06/22 Billie Tucker, RN Specialty C Architect Gastroenterology 12/10/22 Paul Sanford MD [address] [place] [address] Gastroenterology 12/25/22 Paul Sanford MD [address] [place] [address] Referring Physician Gastroenterology 01/14/23 Jt Waters MD [address] [place] [address] Dermatology 01/14/23 Jt Waters MD [address] [place] [address] Assigned Surgical Provider 01/17/23 01/28/24 Bhavik Segura PA-C [address] [place] [address] Physician Html Developer Gastroenterology 04/28/23 Paul Sanford MD [address] [place] [address] Assigned Gastroenterology Provider 07/18/23 Favian Mcknight MD [address] [place] [address] Dermatology 12/09/23 Favian Mcknight MD [address] [place] [address] Assigned Surgical Provider 01/29/24 Tatianna Horne [facility] [address] [place] [address] Assigned MTM Pharmacist 07/08/24 Lyudmila Baltazar, RN Home Infusion Marine Services Technician 08/29/24 documented as of this encounter
--- OUTSIDE RECORDS SUMMARY | 2024-12-22 04:58 | XMS_ITS | Encounter Summary ---
Author Organization [place] Address [address] [place] [address] Care Team Providers Care Fine Wire Drawer Name Role Phone Sushant Schreiber MD Primary Care Provider No Ref-Primary, Physician Unavailable [phone] Cisco Caceres MD Unavailable [phone] Sabiha Hogan APRN IMMIGRATION CASE MANAGER Unavailable [phone] Yung Rodriguez MD Unavailable Tatianna Horne [facility] Unavailable Tatianna Horne [facility] Unavailable [phone] Tatianna Horne [facility] Unavailable [phone] Billie Tucker RN Unavailable Unavailable [place] PA-C Unavailable [phone] Paul Sanford MD Unavailable Paul Sanford MD Unavailable Jt Waters MD Unavailable Jt Waters MD Unavailable Bhavik Segura PA-C Unavailable [phone] Paul Sanford MD Unavailable Favian Mcknight MD Unavailable [phone] Favian Mcknight MD Unavailable [phone] Tatianna Horne [facility] Unavailable Lyudmila Baltazar RN Unavailable Unavailabl e Encounter Details Date Type Department Care Team (Late Contact Info) Description 06/27/2022 MyC Medical Advice [address] [place] [phone] Chantell Madera, JANELL Social History Tobacco Use [...] on file Legal 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 GREASE AND TALLOW PUMPER Gender Identity Not on file Sexual Orientation Not on file documented as of this encounter Plan of Treatment Upcoming Encounters Date Type Department Care Team (Late Contact Info) Description 01/12/2025 10:00 AM GREASE AND TALLOW PUMPER Office Visit [facility] Gastroenterology Clinic [address] [place] [address] Paul Sanford MD [address] [place] [address] 348665 documented as of this encounter Visit Diagnoses Not on filedocumented in this encounter Care Teams Fine Wire Drawer Relationship Specialty Start Date End Date Sushant Schreiber MD [facility] [address] [place] [address] PCP - General Family Medicine 12/02/21 No Ref-Primary, Physician 12/02/21 Cisco Caceres MD [address] [place] [address] Fellow Gastroenterology 12/09/21 Sabiha Hogan APRN IMMIGRATION CASE MANAGER [address] [place], [place] 209975 Assigned Heart and Vascular Provider 12/15/21 02/13/23 Yung Rodriguez MD [address] [place], [place] 444605 Cardiovascular Disease 12/25/21 [facility] [address] [place] [address] 737565 Pharmacist Pharmacist Contractor General Engineering 02/06/22 [facility] [address] [place] [address] 986165 Assigned MTM Pharmacist 04/12/22 [facility] [address] [place] [address] 776305 Assigned MTM Pharmacist 08/13/22 Billie Tucker, RN Specialty Indexer Gastroenterology 12/10/22 Chantale Grande [facility] [address] [place] [address] Physician Sales Development Consultant Dermatology 12/25/22 01/13/23 Paul Sanford MD 500 [place], [place] 409245 Gastroenterology 12/25/22 Paul Sanford MD 500 [place], [place] 685305 Referring Physician Gastroenterology 01/14/23 Jt Waters MD 500 [place] [address] Dermatology 01/14/23 Jt Waters MD 500 [place] [address] Assigned Surgical Provider 01/17/23 01/28/24 Bhavik Segura PA-C [address] [place] [address] 577075 Physician Sales Development Consultant Gastroenterology 04/28/23 Paul Sanford MD [address] [place] [address] Assigned Gastroenterology Provider 07/18/23 Favian Mcknight MD [address] [place] [address] Dermatology 12/09/23 Favian Mcknight MD [address] [place] [address] Assigned Surgical Provider 01/29/24 Tatianna Horne [facility] [address] [place] [address] 035425 Assigned MTM Pharmacist 07/08/24 Lyudmila Baltazar, RN Home Infusion Traffic Control Signaler 08/29/24 documented as of this encounter
--- OUTSIDE RECORDS SUMMARY | 2024-12-22 04:58 | XMS_ITS | Encounter Summary ---
Author Organization [place] Address [address] [place] [address] Care Team Providers Care Squeegee Finisher Name Role Phone Sushant Schreiber MD Primary Care Provider [phone] No Ref-Primary, Physician Unavailable [phone] Cisco Caceres MD Unavailable [phone] Sabiha Hogan APRN SAMPLE SAWYER Unavailable [phone] Yung Rodriguez MD Unavailable Tatianna Horne [facility] Unavailable [phone] Tatianna Horne [facility] Unavailable [phone] Tatianna Horne [facility] Unavailable [phone] Billie Tucker RN Unavailable Unavailable [place] PA-C Unavailable [phone] Paul Sanford MD Unavailable [phone] Paul Sanford MD Unavailable Jt Waters MD Unavailable Jt Waters MD Unavailable Bhavik Segura PA-C Unavailable [phone] Paul Sanford MD Unavailable Favian Mckinght MD Unavailable [phone] Favian Mcknight MD Unavailable [phone] Tatianna Horne [facility] Unavailable Lyudmila Baltazar RN Unavailable Unavailabl e Encounter Details Date Type Department Care Team (Late Contact Info) Description 03/28/2022 MyC Medical Advice [facility] Gastroenterology [address] [phone] Mikala Kennedy CMA Social History Tobacco Use [...] on file Legal 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 MUSIC LIBRARIAN Gender Identity Not on file Sexual Orientation Not on file documented as of this encounter Plan of Treatment Upcoming Encounters Date Type Department Care Team (Late st Contact Info) Description 01/12/2025 10:00 AM MUSIC LIBRARIAN Office Visit [facility] Gastroenterology [address] [address] Paul Sanford MD [address] [place] [address] 708745 documented as of this encounter Visit Diagnoses Not on filedocumented in this encounter Care Teams Squeegee Finisher Relationship Specialty Start Date End Date Sushant Schreiber MD [facility] & [address] [address] PCP - General Family Medicine 12/02/21 No Ref-Primary, Physician 12/02/21 Cisco Caceres MD [address] [place] [address] 284 [place] [address] Fellow Gastroenterology 12/09/21 Sabiha Hogan APRN SAMPLE SAWYER [address] [place] [address]375 Assigned Heart and Vascular Provider 12/15/21 02/13/23 Yung Rodriguez MD [address] [place] [address] Cardiovascular Disease 12/25/21 [facility] [address] [place] [address] 438015 Pharmacist Pharmacist Marriage Performer 02/06/22 [facility] [address] [place] [address] 341285 Assigned MTM Pharmacist 04/12/22 [facility] [address] [place] [address] 593825 Assigned MTM Pharmacist 08/13/22 Billie Tucker, RN Specialty Cooker Casing Gastroenterology 12/10/22 Chantale Grande PAC[facility]pinC [address] [place] [address] Physician Blow Mold Technician Dermatology 12/25/22 01/13/23 Paul Sanford MD 500 [place], [place] 0[address]695 Gastroenterology 12/25/22 Paul Sanford MD 500 [place] [address] Referring Physician Gastroenterology 01/14/23 Jt Waters MD [address] [place] [address] Dermatology 01/14/23 Jt Waters MD 500 [place] [address] Assigned Surgical Provider 01/17/23 01/28/24 Bhavik Segura PA-C [address] [place] [address] 748005 Physician Blow Mold Technician Gastroenterology 04/28/23 Paul Sanford MD 500 [place] [address] Assigned Gastroenterology Provider 07/18/23 Favian Mcknight MD [address] [place] [address] Dermatology 12/09/23 Favian Mcknight MD [address] [place] [address] Assigned Surgical Provider 01/29/24 Tatianna Horne [facility] [address] [place], [place] 152575 Assigned MTM Pharmacist 07/08/24 Lyudmila Baltazar, RN Home Infusion Baggage Clerk 08/29/24 documented as of this encounter
--- OUTSIDE RECORDS SUMMARY | 2024-12-22 04:58 | XMS_ITS | Encounter Summary ---
Author Organization [place] Address [address] [place] [address] Care Team Providers Care Nylon Winder Name Role Phone Sushant Schreiber MD Primary Care Provider No Ref-Primary, Physician Unavailable [phone] Cisco Caceres MD Unavailable [phone] Sabiha Hogan APRN, CNP Unavailable [phone] Yung Rodriguez MD Unavailable Tatianna Horne [facility] Unavailable [phone] Tatianna Horne [facility] Unavailable [phone] Billie Tucker RN Unavailable Unavailable Chantale Grande PA-C Unavailable [phone] Paul Sanford MD Unavailable [phone] Paul Sanford MD Unavailable [phone] Jt Waters MD Unavailable Jt Waters MD Unavailable Bhavik Segura PA-C Unavailable [phone] Paul Sanford MD Unavailable [phone] Favian Mcknight MD Unavailable [phone] Favian Mcknight MD Unavailable [phone] Tatianna Horne [facility] Unavailable Lyudmila Baltazar RN Unavailable Unavailabl e Encounter Details Date Type Department Care Team (Late st Contact Info) Description 11/24/2022 MyC Medical Advice [facility] Gastroenterology [address] [phone] Radhika Love MA Social History Tobacco Use [...] on file Legal 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 SIZER HAND Gender Identity Not on file Sexual Orientation Not on file documented as of this encounter Plan of Treatment Upcoming Encounters Date Type Department Care Team (Late Contact Info) Description 01/12/2025 10:00 AM SIZER HAND Office Visit [facility] Gastroenterology [address] [address] Paul Sanford MD [address] [place] [address] 247125 documented as of this encounter Visit Diagnoses Not on filedocumented in this encounter Care Teams Nylon Winder Relationship Specialty Start Date End Date Sushant Schreiber MD [facility] & [address] [address] PCP - General Family Medicine 12/02/21 No Ref-Primary, Physician 12/02/21 Cisco Caceres MD [address] [place] [address] Fellow Gastroenterology 12/09/21 Sabiha Hogan APRN OSTOMY RN [address] [place] [address] Assigned Heart and Vascular Provider 12/15/21 02/13/23 Yung Rodriguez MD [address] [place] [address] Cardiovascular Disease 12/25/21 Tatianna Horne [facility] [address] [place] [address] Pharmacist Pharmacist Data Report Analyst 02/06/22 [facility] 9 [place] [address] Assigned MTM Pharmacist 08/13/22 Billie Tucker, RN Specialty Entry Level Chemist Gastroenterology 12/10/22 Chantale Grande [facility] [address] [place] [address] Physician Retail Sales Associate Seasonal Dermatology 12/25/22 01/13/23 Paul Sanford MD 500 [place] [address] Gastroenterology 12/25/22 Paul Sanford MD [address] [place] [address] Referring Physician Gastroenterology 01/14/23 Jt Waters MD 500 [place] [address] Dermatology 01/14/23 Jt Waters MD 500 [place] [address] Assigned Surgical Provider 01/17/23 01/28/24 Bhavik Segura PA-C [address] [place] [address] Physician Retail Sales Associate Seasonal Gastroenterology 04/28/23 Paul Sanford MD [address] [place] [address] Assigned Gastroenterology Provider 07/18/23 Favian Mcknight MD [address] [place] [address] MD Dermatology 12/09/23 Favian Mcknight MD [address] [place] [address] Assigned Surgical Provider 01/29/24 Tatianna Horne [facility] [address] [place] [address] Assigned MTM Pharmacist 07/08/24 Lyudmila Baltazar, RN Home Infusion Abrasive Mixer Helper 08/29/24 documented as of this encounter
--- OUTSIDE RECORDS SUMMARY | 2024-12-22 04:58 | XMS_ITS | Encounter Summary ---
Author Organization [place] Address [address] [place] [address] Care Team Providers Care Pocket Builder Name Role Phone Sushant Schreiber MD Primary Care Provider No Ref-Primary, Physician Unavailable [phone] Cisco Caceres MD Unavailable [phone] Sabiha Hogan APRN VOCAL PERFORMER Unavailable [phone] Yung Rodriguez MD Unavailable Tatianna Horne [facility] Unavailable Tatianna Horne [facility] Unavailable [phone] Tatianna Horne [facility] Unavailable [phone] Billie Tucker RN Unavailable Unavailable Ch[place] Grande PA-C Unavailable [phone] Paul Sanford MD Unavailable Paul Sanford MD Unavailable Jt Waters MD Unavailable Jt Waters MD Unavailable Bhavik Segura PA-C Unavailable [phone] Paul Sanford MD Unavailable [phone] Favian Mcknight MD Unavailable [phone] Favian Mcknight MD Unavailable [phone] TroTatianna cordoba [facility] Unavailable [phone] Lyudmila Baltazar RN Unavailable Unavailabl e Encounter Details Date Type Department Care Team (Late Contact Info) Description 02/21/[address] 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 Gastroenterology Clinic [address] [place] [address] Paul Sanford MD [address] [place] [address] documented as of this encounter Visit Diagnoses Not on filedocumented in this encounter Additional Health Concerns Infection Onset Date Last Indicated Resolved Time COVID-19 02/27/2022 02/27/2022 03/20/2022 11:3 9 PM CDT documented as of this encounter Care Teams Pocket Builder Relationship Specialty Start Date End Date Sushant Schreiber MD [facility] & [address] [address] PCP - General Family Medicine 12/02/21 No Ref-Primary, Physician 12/02/21 Cisco Caceres MD [address] [place] [address] 749775 Fellow Gastroenterology 12/09/21 Sabiha Hogan APRN VOCAL PERFORMER [address] [place], [place] 332085 Assigned Heart and Vascular Provider 12/15/21 02/13/23 Yung Rodriguez MD [address] [place], [place] [address] Cardiovascular Disease 12/25/21 [facility] [address] [place] [address] 359475 Pharmacist Pharmacist Business Center Manager 02/06/22 [facility] [address] [place] [address] 697365 Assigned MTM Pharmacist 04/12/22 Tatianna Horne [facility] [address] [place] [address] 087305 Assigned MTM Pharmacist 08/13/22 Billie Tucker, RN Specialty Sales Marketing Gastroenterology 12/10/22 Chantale Grande, [facility] [address] [place] [address] Physician Speech Lang Path Dermatology 12/25/22 01/13/23 Paul Sanford MD 500 [place] [address] MD Gastroenterology 12/25/22 Paul Sanford MD [address] [place] [address] Referring Physician Gastroenterology 01/14/23 Jt Waters MD 500 [place] [address] Dermatology 01/14/23 Jt Waters MD [address] [place] [address] Assigned Surgical Provider 01/17/23 01/28/24 Bhavik Segura PA-C [address] [place] [address] Physician Speech Lang Path Gastroenterology 04/28/23 Paul Sanford MD [address] [place] [address] Assigned Gastroenterology Provider 07/18/23 Favian Mcknight MD [address] [place] [address] Dermatology 12/09/23 Favian Mcknight MD [address] [place] [address] Assigned Surgical Provider 01/29/24 Tatianna Horne, [facility] 9 [place] [address] Assigned MTM Pharmacist 07/08/24 Lyudmila Baltazar, RN Home Infusion Highway Worker 08/29/24 documented as of this encounter
--- OUTSIDE RECORDS SUMMARY | 2024-12-22 04:58 | XMS_ITS | Encounter Summary ---
Author Organization [facility] Address [address] [place] [address] Care Team Providers Care Consulting Actuary Name Role Phone Sushant Schreiber MD Primary Care Provider [phone] No Ref-Primary, Physician Unavailable [phone] Cisco Caceres MD Unavailable [phone] Sabiha Hogan APRN, CNP Unavailable [phone] Yung Rdoriguez MD Unavailable Tatianna Horne [facility] Unavailable Tatianna Horne [facility] Unavailable [phone] Billie Tucker RN Unavailable Unavailable Chantale Grande PA-C Unavailable [phone] Paul Sanford MD Unavailable [phone] Paul Sanford MD Unavailable [phone] Jt Waters MD Unavailable Jt Waters MD Unavailable Bhavik Segura PA-C Unavailable +[phone] Paul Sanford MD Unavailable Favian Mcknight MD Unavailable [phone] Favian Mcknight MD Unavailable [phone] Tatianna Horne [facility] Unavailable Lyudmila Baltazar RN Unavailable Unavailabl e Encounter Details Date Type Department Care Team (Late Contact Info) Description 12/22/2022 MyC Medical Advice [facility] G[facility]ology Clinic [address] [address] Billie Tucker RN Social History Tobacco [...] on file Legal 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 No / Unsure 12/25/2022 7:56 AM METER/RELAY CRAFTSMAN documented as of this encounter Plan of Treatment Upcoming Encounters Date Type Department Care Team (Late st Contact Info) Description 01/12/2025 10:00 AM METER/RELAY CRAFTSMAN Office Visit [facility] Gastroenterology [address] [address] Paul Sanford MD [address] [place] [address] 918035 documented as of this encounter Visit Diagnoses Not on filedocumented in this encounter Care Teams Consulting Actuary Relationship Specialty Start Date End Date Sushant Schreiber MD [facility] [address] [place] [address] PCP - General Family Medicine 12/02/21 No Ref-Primary, Physician 12/02/21 Cisco Caceres MD [address] [place] [address] Fellow Gastroenterology 12/09/21 Sabiha Hogan APRN MINK RANCHER [address] [place] [id number] Assigned Heart and Vascular Provider 12/15/21 02/13/23 Yung Rodriguez MD [address] [place] 12[address]55 Cardiovascular Disease 12/25/21 [facility] [address] [place] [address] Pharmacist Pharmacist Due Diligence Coordinator 02/06/22 [facility] [address] [place] [address] Assigned MTM Pharmacist 08/13/22 Billie Tucker, JANELL Specialty Centrifugal Screen Tender Gastroenterology 12/10/22 Chantale Grande PA-C [address] [place] [address] Physician Scallop Dredger Dermatology 12/25/22 01/13/23 Paul Sanford MD 500 [place] [address] Gastroenterology 12/25/22 Paul Sanford MD [address] [place] [address] Referring Physician Gastroenterology 01/14/23 Jt Waters MD 500 [place] [address] Dermatology 01/14/23 Jt Waters MD [address] [place] [address] Assigned Surgical Provider 01/17/23 01/28/24 Bhavik Segura PA-C [address] [place] [address] Physician Scallop Dredger Gastroenterology 04/28/23 Paul Sanford MD [address] [place] [address] Assigned Gastroenterology Provider 07/18/23 Favian Mcknight MD [address] [place] [address] Dermatology 12/09/23 Favian Mcknight MD [address] [place] [address] Assigned Surgical Provider 01/29/24 Tatianna Horne, [facility] [address] [place] [address] Assigned MTM Pharmacist 07/08/24 Lyudmila Baltazar, RN Home Infusion Wheat Shipper 08/29/24 documented as of this encounter
--- OUTSIDE RECORDS SUMMARY | 2024-12-22 04:58 | XMS_ITS | Encounter Summary ---
Author Organization [facility] Address [address] [place] [address] Care Team Providers Care Flat Examiner Name Role Phone Sushant Schreiber MD Primary Care Provider [phone] No Ref-Primary, Physician Unavailable [phone] Cisco Caceres MD Unavailable [phone] Yung Rodriguez MD Unavailable Tatianna Horne [facility] Unavailable [phone] Billie Tucker RN Unavailable Unavailable Paul Sanford MD Unavailable [phone] Paul Sanford MD Unavailable [phone] Jt Waters MD Unavailable Bhavik Segura PA-C Unavailable +[phone] Paul Sanford MD Unavailable [phone] Favian Mcknight MD Unavailable [phone] Favian Mcknight MD Unavailable [phone] Tatianna Horne [facility] Unavailable [phone] Lyudmila Baltazar RN Unavailable Unavailabl e Encounter Details Date Type Department Care Team (Late st Contact Info) Description 03/16/2024 [facility] [address] [place] [address] Tatianna Horne, [address] [address] Social History Tobacco Use Types Packs/Day Years [...] on file Legal 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 FRAME BENDER Gender Identity Not on file Sexual Orientation Not on file documented as of this encounter Plan of Treatment Upcoming Encounters Date Type Department Care Team (Late st Contact Info) Description 01/12/2025 10:00 AM FRAME BENDER Office Visit [facility] Gastroenterology Clinic [address] [place] [phone] Paul Sanford MD [address] [place] [address] documented as of this encounter Visit Diagnoses Not on filedocumented in this encounter Care Teams Flat Examiner Relationship Specialty Start Date End Date Sushant Schreiber MD [facility] [address] [place] [address] PCP - General Family Medicine 12/02/21 No Ref-Primary, Physician 12/02/21 Cisco Caceres MD [address] [place] [address] 284 [place] [address] Fellow Gastroenterology 12/09/21 Yung Rodriguez MD [address] [place] [address] Cardiovascular Disease 12/25/21 Tatianna Horne, [facility] [address] [place] [address] Pharmacist Pharmacist Slot Machine Key Person 02/06/22 Billie Tucker, RN Specialty Green Building Design Specialist Gastroenterology 12/10/22 Paul Sanford MD [address] [place] [address] Gastroenterology 12/25/22 Paul Sanford MD [address] [place] [address] Referring Physician Gastroenterology 01/14/23 Jt Waters MD [address] [place] [address] 426125 Dermatology 01/14/23 Bhavik Segura PA-C [address] [place] [address] 622045 Physician Biofuels Technology Manager Gastroenterology 04/28/23 Paul Sanford MD [address] [place] [address] Assigned Gastroenterology Provider 07/18/23 Favian Mcknight MD [address] [place] [address] 263585 Dermatology 12/09/23 Favian Mcknight MD [address] [place] [address] Assigned Surgical Provider 01/29/24 Tatianna Horne [facility] [address] [place] [address] Assigned MTM Pharmacist 07/08/24 Lyudmila Baltazar, RN Home Infusion Firearms Sales Associate 08/29/24 documented as of this encounter
--- OUTSIDE RECORDS SUMMARY | 2024-12-22 04:58 | XMS_ITS | Encounter Summary ---
Author Organization [facility] Address [address] [place] [address] Care Team Providers Care End Lathe Operator Name Role Phone Sushant Schreiber MD Primary Care Provider [phone] No Ref-Primary, Physician Unavailable [phone] Cisco Caceres MD Unavailable [phone] Yung Rodriguez MD Unavailable Tatianna Horne [facility] Unavailable [phone] Billie Tucker RN Unavailable Unavailable Paul Sanford MD Unavailable [phone] Paul Sanford MD Unavailable [phone] Jt Waters MD Unavailable Jt Waters MD Unavailable Bhavik Segura PA-C Unavailable [phone] Paul Sanford MD Unavailable [phone] Favian Mcknight MD Unavailable [phone] Favian Mcknight MD Unavailable [phone] Tatianna Horne [facility] Unavailable [phone] Lyudmila Baltazar RN Unavailable Unavailabl e Encounter Details Date Type Department Care Team (Late st Contact Info) Description 01/26/2024 [facility] [address] 4th [place] [address] Billie Tucker RN Social History [...] on file 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 Gender Identity Not on file Sexual Orientation Not on file documented as of this encounter Plan of Treatment Upcoming Encounters Date Type Department Care Team (Late st Contact Info) Description 01/12/2025 10:00 AM SECURITY TEAM LEAD Office Visit [facility] Gastroenterology Clinic [address] [place] [phone] Paul Sanford MD [address] [place] [address] 161545 documented as of this encounter Visit Diagnoses Not on filedocumented in this encounter Care Teams End Lathe Operator Relationship Specialty Start Date End Date Sushant Schreiber MD [facility] [address] [place] [address] PCP - General Family Medicine 12/02/21 No Ref-Primary, Physician 12/02/21 Cisco Caceres MD [address] [place] [address] 284 [place], [place] 825895 Fellow Gastroenterology 12/09/21 Yung Rodriguez MD [address] [facility] [address] [place], [place] 482785 Cardiovascular Disease 12/25/21 Tatianna Horne, [facility] [address] [place] [address] Pharmacist Pharmacist Media Planner 02/06/22 Billie Tucker, RN Specialty Controls Design Engineer Gastroenterology 12/10/22 Paul Sanford MD [address] [place] [address] Gastroenterology 12/25/22 Paul Sanford MD [address] [place] [address] Referring Physician Gastroenterology 01/14/23 Jt Waters MD [address] [place] [address] 368925 Dermatology 01/14/23 Jt Waters MD [address] [place] [address] Assigned Surgical Provider 01/17/23 01/28/24 Bhavik Segura PA-C [address] [place] [address] 733785 Physician Jeep Mechanic Gastroenterology 04/28/23 Paul Sanford MD [address] [place] [address] Assigned Gastroenterology Provider 07/18/23 Favian Mcknight MD [address] [place] [address] Dermatology 12/09/23 Favian Mcknight MD [address] [place] [address] Assigned Surgical Provider 01/29/24 Tatianna Horne [facility] [address] [place] [address] Assigned MTM Pharmacist 07/08/24 Lyudmila Baltazar, RN Home Infusion Highway Painter Helper 08/29/24 documented as of this encounter
--- OUTSIDE RECORDS SUMMARY | 2024-12-22 04:58 | XMS_ITS | Encounter Summary ---
Author Organization [facility] Address [address] [place] [address] Care Team Providers Care Asphalt Blender Name Role Phone Sushant Schreiber MD Primary Care Provider [phone] No Ref-Primary, Physician Unavailable [phone] Cisco Caceres MD Unavailable [phone] Sabiha Hogan APRN, CNP Unavailable [phone] Yung Rodriguez MD Unavailable Tatianna Horne [facility] Unavailable Tatianna Horne [facility] Unavailable [phone] Billie Tucker RN Unavailable Unavailable Ch[place] PA-C Unavailable [phone] Paul Sanford MD Unavailable [phone] Paul Sanford MD Unavailable [phone] Jt Waters MD Unavailable Jt Waters MD Unavailable Bhavik Segura PA-C Unavailable [phone] Paul Sanford MD Unavailable Favian Mcknight MD Unavailable [phone] Favian Mcknight MD Unavailable [phone] Tatianna Horne [facility] Unavailable Lyudmila Baltazar RN Unavailable Unavailabl e Encounter Details Date Type Department Care Team (Late Contact Info) Description 10/08/2022 MyC Medical Advice [facility] Gastroenterology [address] [phone] Billie Tucker RN Social History Tobacco Use [...] on file 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 Gender Identity Not on file Sexual Orientation Not on file documented as of this encounter Plan of Treatment Upcoming Encounters Date Type Department Care Team (Late Contact Info) Description 01/12/2025 10:00 AM KELLER MACHINE OPERATOR Office Visit [facility] Gastroenterology [address] [address] Paul Sanford MD [address] [place] [address] 294865 documented as of this encounter Visit Diagnoses Not on filedocumented in this encounter Care Teams Asphalt Blender Relationship Specialty Start Date End Date Sushant Schreiber MD [facility] & [address] [address] PCP - General Family Medicine 12/02/21 No Ref-Primary, Physician 12/02/21 Cisco Caceres MD [address] [place] [address] Fellow Gastroenterology 12/09/21 Sabiha Hogan APRN PIG IRON LOADER [address] [place] [address] Assigned Heart and Vascular Provider 12/15/21 02/13/23 Yung Rodriguez MD [address] [place] [address] Cardiovascular Disease 12/25/21 Tatianna Horne [facility] [address] [place] [address] Pharmacist Pharmacist Black Jack Dealer 02/06/22 Tatianna Horne [facility] [address] [place] [address] Assigned MTM Pharmacist 08/13/22 Billie Tucker, JANELL Specialty Trucking Contractor Gastroenterology 12/10/22 Chantale Grande [facility] [address] [place] [address] Physician Transcription Typist Dermatology 12/25/22 01/13/23 Paul Sanford MD 500 [place] [address] Gastroenterology 12/25/22 Paul Sanford MD 500 [place] [address] Referring Physician Gastroenterology 01/14/23 Jt Waters MD 500 [place] [address] Dermatology 01/14/23 Jt Waters MD [address] [place] [address] Assigned Surgical Provider 01/17/23 01/28/24 Bhavik Segura PA-C [address] [place] [address] Physician Transcription Typist Gastroenterology 04/28/23 Paul Sanford MD [address] [place] [address] Assigned Gastroenterology Provider 07/18/23 Favian Mcknight MD [address] [place] [address] MD Dermatology 12/09/23 Favian Mcknight MD [address] [place] [address] Assigned Surgical Provider 01/29/24 Tatianna Horne [facility] [address] [place] [address] Assigned MTM Pharmacist 07/08/24 Lyudmila Baltazar, RN Home Infusion Replenishment Associate 08/29/24 documented as of this encounter
--- OUTSIDE RECORDS SUMMARY | 2024-12-22 04:58 | XMS_ITS | Encounter Summary ---
Author Organization [facility] Address [address] [place] [address] Care Team Providers Care Gear Hobber Set Up Operator Name Role Phone Sushant Schreiber MD Primary Care Provider [phone] No Ref-Primary, Physician Unavailable [phone] Cisco Caceres MD Unavailable [phone] Sabiha Hogan APRN, CNP Unavailable [phone] Yung Rodriguez MD Unavailable Tatianna Horne [facility] Unavailable Tatianna Horne [facility] Unavailable [phone] Billie Tucker RN Unavailable Unavailable Chantale Grande PA-C Unavailable [phone] Paul Sanford MD Unavailable [phone] Paul Sanford MD Unavailable [phone] Jt Waters MD Unavailable Jt Waters MD Unavailable Bhavik Segura PA-C Unavailable [phone] Paul Sanford MD Unavailable Favian Mcknight MD Unavailable [phone] Favian Mcknight MD Unavailable [phone] Tatianna Horne [facility] Unavailable Lyudmila Baltazar RN Unavailable Unavailabl e Encounter Details Date Type Department Care Team (Late st Contact Info) Description 08/14/2022 MyC Medical Advice [facility] Heart [facility] [address] [facility] [address] [place] [address] EdisonSabiha APRN COMMISSION BROKER [address] [place], [place] 092345 Social History Tobacco Use Types Packs/Day Years [...] on file 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 Gender Identity Not on file Sexual Orientation Not on file documented as of this encounter Plan of Treatment Upcoming Encounters Date Type Department Care Team (Late st Contact Info) Description 01/12/2025 10:00 AM TALENT ACQUISITION PROGRAM MANAGER Office Visit [facility] Gastroenterology Clinic [address] [address] Paul Sanford MD [address] [place] [address] 289995 documented as of this encounter Visit Diagnoses Not on filedocumented in this encounter Care Teams Gear Hobber Set Up Operator Relationship Specialty Start Date End Date Sushant Schreiber MD [facility] [address] [place] [address] PCP - General Family Medicine 12/02/21 No Ref-Primary, Physician 12/02/21 Cisco Caceres MD [address] [place] [address] 284 [place], [place] 114335 Fellow Gastroenterology 12/09/21 Sabiha Hogan APRN COMMISSION BROKER [address] [place], [place] 658895 Assigned Heart and Vascular Provider 12/15/21 02/13/23 Yung Rodriguez MD [address] [place], [place] 644625 Cardiovascular Disease 12/25/21 [facility] [address] [place] [address] [phone] Pharmacist Pharmacist Feed Manager 02/06/22 [facility] [address] [place] [address] 967685 Assigned MTM Pharmacist 08/13/22 Billie Tucker, RN Specialty Hand Former Helper Gastroenterology 12/10/22 Chantale Grande, PACrispinC [address] [place], [place] 2324792 Physician Make Up Operator Dermatology 12/25/22 01/13/23 Paul Sanford MD 500 [place] [address] Gastroenterology 12/25/22 Paul Sanford MD [address] [place] [address] Referring Physician Gastroenterology 01/14/23 Jt Waters MD [address] [place] [address] Dermatology 01/14/23 Jt Waters MD [address] [place] [address] Assigned Surgical Provider 01/17/23 01/28/24 Bhavik Segura PA-C [address] [place] [address] Physician Make Up Operator Gastroenterology 04/28/23 Paul Sanford MD [address] [place] [address] Assigned Gastroenterology Provider 07/18/23 Favian Mcknight MD [address] [place] [address] Dermatology 12/09/23 Favian Mcknight MD [address] [place] [address] Assigned Surgical Provider 01/29/24 Tatianna Horne [facility] [address] [place] [address] Assigned MTM Pharmacist 07/08/24 Lyudmila Baltazar, RN Home Infusion Paint Tinter 08/29/24 documented as of this encounter
--- OUTSIDE RECORDS SUMMARY | 2024-12-22 04:58 | XMS_ITS | Encounter Summary ---
Author Organization [facility] Address [address] [place] [address] Care Team Providers Care Spray Blender Name Role Phone Sushant Schreiber MD Primary Care Provider No Ref-Primary, Physician Unavailable [phone] Cisco Caceres MD Unavailable [phone] Yung Rodriguez MD Unavailable Tatianna Horne [facility] Unavailable [phone] Billie Tucker RN Unavailable Unavailable Paul Sanford MD Unavailable [phone] Paul Sanford MD Unavailable [phone] Jt Waters MD Unavailable Jt Waters MD Unavailable Bhavik Segura PA-C Unavailable [phone] Paul Sanford MD Unavailable [phone] Favian Mcknight MD Unavailable [phone] Favian Mcknight MD Unavailable [phone] Tatianna Horne [facility] Unavailable [phone] Lyudmila Baltazar RN Unavailable Unavailabl e Encounter Details Date Type Department Care Team (Late st Contact Info) Description 01/09/2024 [facility] Cancer [place] [address]959 [place] [address] Tatianna Horne Darrel, [facility] [address] [place] [address] Social History Tobacco Use Types Packs/Day Years [...] on file 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 [address] [place] [address] PCP - General Family Medicine 12/02/21 No Ref-Primary, Physician 12/02/21 Cisco Caceres MD [address] [place] [address] 284 [place], [place] 473935 Fellow Gastroenterology 12/09/21 Yung Rodriguez MD [address] [place], [place] 323595 Cardiovascular Disease 12/25/21 Tatianna Horne [facility] 9 [place] [address] Pharmacist Pharmacist Sausage Cutter 02/06/22 Billie Tucker, RN Specialty Manager Of Quality Gastroenterology 12/10/22 Paul Sanford MD 500 [place] [address] Gastroenterology 12/25/22 Paul Sanford MD [address] [place] [address] Referring Physician Gastroenterology 01/14/23 Jt Waters MD [address] [place] [address] Dermatology 01/14/23 Jt Waters MD [address] [place] [address] Assigned Surgical Provider 01/17/23 01/28/24 Bhavik Segura PA-C [address] [place] [address] Physician Second Helper Gastroenterology 04/28/23 Paul Sanford MD [address] [place] [address] Assigned Gastroenterology Provider 07/18/23 Favian Mcknight MD [address] [place] [address] Dermatology 12/09/23 Favian Mcknight MD [address] [place] [address] Assigned Surgical Provider 01/29/24 aTtianna Horne [facility] [address] [place] [address] Assigned MTM Pharmacist 07/08/24 Lyudmila Baltazar, RN Home Infusion Masking Machine Operator 08/29/24 documented as of this encounter
--- OUTSIDE RECORDS SUMMARY | 2024-12-22 04:58 | XMS_ITS | Encounter Summary ---
Author Organization [facility] Address [address] [place] [address] Care Team Providers Care Packing Shed Supervisor Name Role Phone Sushant Schreiber MD Primary Care Provider No Ref-Primary, Physician Unavailable [phone] Cisco Caceres MD Unavailable [phone] Sabiha Hogan APRN VISITING HOUSEKEEPER Unavailable [phone] Yung Rodriguez MD Unavailable Tatianna Horne [facility] Unavailable Tatianna Horne [facility] Unavailable [phone] Tatianna Horne [facility] Unavailable [phone] Billie Tucker RN Unavailable Unavailable Ch[place]ale [place] PA-C Unavailable [phone] Paul Sanford MD Unavailable Paul Sanford MD Unavailable Jt Waters MD Unavailable Jt Waters MD Unavailable Bhavik Segura PA-C Unavailable [phone] Paul Sanford MD Unavailable Favian Mcknight MD Unavailable [phone] Favian Mcknight MD Unavailable [phone] Tatianna Horne [facility] Unavailable [phone] Lyudmila Baltazar RN Unavailable Unavailabl e Encounter Details Date Type Department Care Team (Late Contact Info) Description 06/27/2022 MyC Medical Advice [address] [place] [phone] Chantell Madera, JANELL Social History Tobacco Use [...] on file 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 Gender Identity Not on file Sexual Orientation Not on file documented as of this encounter Plan of Treatment Upcoming Encounters Date Type Department Care Team (Late Contact Info) Description 01/12/2025 10:00 AM SAP SENIOR DEVELOPER Office Visit [facility] [address] [place] [address] Paul Sanford MD [address] [place] [address] [phone] documented as of this encounter Visit Diagnoses Not on filedocumented in this encounter Care Teams Packing Shed Supervisor Relationship Specialty Start Date End Date Sushant Schreiber MD [facility] [address] [place] [address] PCP - General Family Medicine 12/02/21 No Ref-Primary, Physician 12/02/21 Cisco Caceres MD [address] [place] [address] Fellow Gastroenterology 12/09/21 Sabiha Hogan APRN VISITING HOUSEKEEPER [address] [place], [place] [id number] Assigned Heart and Vascular Provider 12/15/21 02/13/23 Yung Rodriguez MD [address] [place], [place] [id number] Cardiovascular Disease 12/25/21 [facility] [address] [place] [address] [phone] Pharmacist Pharmacist Top Lift Compresser 02/06/22 [facility] [address] [place] [address] [phone] Assigned MTM Pharmacist 04/12/22 [facility] [address] [place] [address] [phone] Assigned MTM Pharmacist 08/13/22 Billie Tucker, RN Specialty Board Finisher Gastroenterology 12/10/22 Chantale Grande PAC[facility]pin[facility] [address] [place] [address] Physician Train Station Server Dermatology 12/25/22 01/13/23 Paul Sanford MD [address] [place], [place] 2976[address] Gastroenterology 12/25/22 Paul Sanford MD [address] [place], [place] [address]25 Referring Physician Gastroenterology 01/14/23 Jt Waters MD [address] [place] [address] Dermatology 01/14/23 Jt Waters MD [address] [place] [address] Assigned Surgical Provider 01/17/23 01/28/24 Bhavik Segura PA-C [address] [place] [address] [phone] Physician Train Station Server Gastroenterology 04/28/23 Paul Sanford MD [address] [place] [address] Assigned Gastroenterology Provider 07/18/23 Favian Mcknight MD [address] [place] [address] Dermatology 12/09/23 Favian Mcknight MD [address] [place] [address] Assigned Surgical Provider 01/29/24 Tatianna Horne [facility] [address] [place] [address] [phone] Assigned MTM Pharmacist 07/08/24 Lyudmila Baltazar, RN Home Infusion Prism Inspector 08/29/24 documented as of this encounter
--- OUTSIDE RECORDS SUMMARY | 2024-12-22 04:58 | XMS_ITS | Encounter Summary ---
Author Organization [facility] Address [address] [place] [address] Care Team Providers Care Electrical And Radio Mock Up Mechanic Name Role Phone Sushant Schreiber MD Primary Care Provider No Ref-Primary, Physician Unavailable [phone] Cisco Caceres MD Unavailable [phone] Sabiha Hogan APRN RADIOLOGICAL HEALTH SPECIALIST Unavailable [phone] Yung Rodriguez MD Unavailable Tatianna Horne [facility] Unavailable Tatianna Horne [facility] Unavailable [phone] Tatianna Horne [facility] Unavailable [phone] Billie Tucker RN Unavailable Unavailable [place] PA-C Unavailable [phone] Paul Sanford MD Unavailable [phone] Paul Sanford MD Unavailable Jt Waters MD Unavailable Jt Waters MD Unavailable Bhavik Segura PA-C Unavailable [phone] Paul Sanford MD Unavailable Favian Mcknight MD Unavailable [phone] Favian Mcknight MD Unavailable [phone] Tatianna Horne [facility] Unavailable [phone] Lyudmila Baltazar RN Unavailable Unavailabl e Encounter Details Date Type Department Care Team (Late Contact Info) Description 07/07/2022 MyC Medical Advice [facility] [address] [phone] Michelle Enamorado RN Social History Tobacco Use [...] on file 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 Gender Identity Not on file Sexual Orientation Not on file documented as of this encounter Plan of Treatment Upcoming Encounters Date Type Department Care Team (Late st Contact Info) Description 01/12/2025 10:00 AM FINISHING RANGE OPERATOR Office Visit [facility] [address] [address] Paul Sanford MD [address] [place] [address] [phone] documented as of this encounter Visit Diagnoses Not on filedocumented in this encounter Care Teams Electrical And Radio Mock Up Mechanic Relationship Specialty Start Date End Date Sushant Schreiber MD [facility] [address] [place] [address] PCP - General Family Medicine 12/02/21 No Ref-Primary, Physician 12/02/21 Cisco Caceres MD [address] [place] [address] [address] [place], [place] 415395 Fellow Gastroenterology 12/09/21 Sabiha Hogan APRN CNP [address] [place] [address] Assigned Heart and Vascular Provider 12/15/21 02/13/23 Yung Rodriguez MD [address] [place] [address] Cardiovascular Disease 12/25/21 [facility] [address] [place] [address] Pharmacist Pharmacist Reproduction Machine Loader 02/06/22 [facility] [address] [place] [address] [phone] Assigned MTM Pharmacist 04/12/22 [facility] [address] [place] [address] Assigned MTM Pharmacist 08/13/22 Billie Tucker, RN Specialty Nutrition Helper Gastroenterology 12/10/22 Chantale Grande PA-C [address] [place] [address] Physician Machine Tool Mechanic Dermatology 12/25/22 01/13/23 Paul Sanford MD [address] [place] [address] Gastroenterology 12/25/22 Paul Sanford MD [address] [place] [address] Referring Physician Gastroenterology 01/14/23 Jt Waters MD 500 [place] [address] Dermatology 01/14/23 Jt Waters MD [address] [place] [address] Assigned Surgical Provider 01/17/23 01/28/24 Bhavik Segura PA-C [address] [place] [address] Physician Machine Tool Mechanic Gastroenterology 04/28/23 Paul Sanford MD [address] [place] [address] Assigned Gastroenterology Provider 07/18/23 Favian Mcknight MD [address] [place] [address] Dermatology 12/09/23 Favian Mcknight MD [address] [place] [address] Assigned Surgical Provider 01/29/24 Tatianna Horne, [facility] [address] [place], [place] 827[address] Assigned MTM Pharmacist 07/08/24 Lyudmila Baltazar, RN Home Infusion Event Manager 08/29/24 documented as of this encounter
--- OUTSIDE RECORDS SUMMARY | 2024-12-22 04:58 | XMS_ITS | Encounter Summary ---
Author Organization [facility] Address [address] [place] [address] Care Team Providers Care Printing Roller Polisher Name Role Phone Sushant Schreiber MD Primary Care Provider [phone] No Ref-Primary, Physician Unavailable [phone] Cisco Caceres MD Unavailable [phone] Sabiha Hogan APRN CAD CAM PROGRAMMER Unavailable [phone] Yung Rodriguez MD Unavailable Tatianna Horne [facility] Unavailable [phone] Tatianna Horne [facility] Unavailable [phone] Tatianna Horne [facility] Unavailable [phone] Billie Tucker RN Unavailable Unavailable [place] PA-C Unavailable [phone] Paul Sanford MD Unavailable Paul Sanford MD Unavailable [phone] Jt Waters MD Unavailable Jt Waters MD Unavailable Bhavik Segura PA-C Unavailable [phone] Paul Sanford MD Unavailable Favian Mcknight MD Unavailable [phone] Favian Mcknight MD Unavailable [phone] Tatianna Horne [facility] Unavailable Lyudmila Baltazar RN Unavailable Unavailabl e Encounter Details Date Type Department Care Team (Late Contact Info) Description 07/02/2022 MyC Medical Advice [address] [place] [phone] Billie Santo RN Social History Tobacco Use [...] on file 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 Gender Identity Not on file Sexual Orientation Not on file documented as of this encounter Plan of Treatment Upcoming Encounters Date Type Department Care Team (Late Contact Info) Description 01/12/2025 10:00 AM CASING WRINGER OPERATOR Office Visit [facility] [address] [place] [address] Paul Sanford MD [address] [place] [address] [phone] documented as of this encounter Visit Diagnoses Not on filedocumented in this encounter Care Teams Printing Roller Polisher Relationship Specialty Start Date End Date Sushant Schreiber MD [facility] [address] [address] PCP - General Family Medicine 12/02/21 No Ref-Primary, Physician 12/02/21 Cisco Caceres MD [address] [place] [address] Fellow Gastroenterology 12/09/21 Sabiha Hogan APRN CAD CAM PROGRAMMER [address] [place] 14[address] Assigned Heart and Vascular Provider 12/15/21 02/13/23 Yung Rodriguez MD [address] [place], [place] 3478[address] Cardiovascular Disease 12/25/[address] [facility] [address] [place] [address] [phone] Pharmacist Pharmacist Strap Cutter 02/06/[address] [facility] [address] [place] [address] 364255 Assigned MTM Pharmacist 04/12/[address] [facility] [address] [place] [address] [phone] Assigned MTM Pharmacist 08/13/22 Billie Tucker, RN Specialty Green House Manager Gastroenterology 12/10/22 Chantale Grande PAC[facility]pinC [address] [place] [address] Physician Electrical Accessories Ii Assembler Dermatology 12/25/22 01/13/23 Paul Sanford MD [address] [place], [place] 1727[address] Gastroenterology 12/25/22 Paul Sanford MD [address] [place], [place] [address]1985 Referring Physician Gastroenterology 01/14/23 Jt Waters MD [address] [place] [address] Dermatology 01/14/23 Jt Waters MD [address] [place] [address] Assigned Surgical Provider 01/17/23 01/28/24 Bhavik Segura PA-C [address] [place] [address] 186265 Physician Electrical Accessories Ii Assembler Gastroenterology 04/28/23 Paul Sanford MD [address] [place] [address] Assigned Gastroenterology Provider 07/18/23 Favian Mcknight MD [address] [place] [address] Dermatology 12/09/23 Favian Mcknight MD [address] [place] [address] Assigned Surgical Provider 01/29/24 Tatianna Horne [facility] [address] [place] [address] [phone] Assigned MTM Pharmacist 07/08/24 Lyudmila Baltazar, RN Home Infusion Client Service Consultant 08/29/24 documented as of this encounter
--- OUTSIDE RECORDS SUMMARY | 2024-12-22 04:58 | XMS_ITS | Referral Summary ---
Author Organization [place] Address [address] [place] [address] Care Team Providers Care Fitting Supervisor Name Role Phone Sushant Schreiber MD Primary Care Provider No Ref-Primary, Physician Unavailable [phone] Cisco Wooten MD Unavailable [phone] Yung Rodriguez MD Unavailable Tatianna Horne [facility] Unavailable [phone] Billie Tucker RN Unavailable Unavailable Megha Sanford MD Unavailable [phone] Megha Sanford MD Unavailable [phone] Jt Waters MD Unavailable Bhavik Segura PA-C Unavailable [phone] Megha Sanford MD Unavailable [phone] Favian Mcknight MD Unavailable [phone] Favian Mcknight MD Unavailable [phone] Tatianna Horne [facility] Unavailable [phone] Lyudmila Baltazar RN Unavailable Unavailabl e Encounters Date Type Department Care Team Description 12/19/2024 1:00 PM SUPERVISOR ASSEMBLY DEPARTMENT Home Care Visit [facility] [address] [place] [phone] Jonnie Mcfadden, RN 12/18/2024 [facility] [address] [place] [phone] Abhijeetmaryanne Tatiannashree Rojo, [facility] 12/06/[address] [facility] Gastro Procedure [address] [place] [phone] Denita Waddell, RN CARDIOVASCULAR ICU 12/06/2024 [facility] Medical Adv[facility] [address] [place] [address] Denita Waddell, RN CARDIOVASCULAR ICU 11/28/2024 [facility] [address] [place] [address] Denita Waddell, RN CARDIOVASCULAR ICU 11/17/[address] [facility] G[facility]ology Clinic [address] [phone] Billie Tucker, JANELL 11/17/[address] [facility] [address] [address] Paula Jane PA-C Appointment 11/14/[address] [facility] [address] [address] Paula Jane PA-C Appointment 11/14/[address] [facility] [address] [address] Billie Tucker, RN 11/03/[address] [facility] [address] [phone] Allison Steward 11/03/[address] [facility] [address] [phone] Allison Stewadr 10/27/2024 Home Infusion [facility] [address] [place] [phone] Navjot Mantilla, [facility] Crohn's disease of both small and large intestine with other complication (H) 10/24/2024 12:00 PM SUPERVISOR ASSEMBLY DEPARTMENT Home Care Visit [facility] [address] [place] [address] Lyudmila Baltazar RN from Last 3 Months Allergies Active Allergy [...] with 20 mL NS to flush tubing. [id number] mL 5 9:32 AM SUPERVISOR ASSEMBLY DEPARTMENT 11/14/20 24 2024 Active acetaminophen (TYLENOL) 325 MG tabletIndicatio ns:Crohn's disease of both small and large intestine with other complication (H) Take 2 tablets (650 mg) by mouth once every eight weeks. Administer 30 minutes prior to infusion 12 tablet 5 9:32 AM SUPERVISOR ASSEMBLY DEPARTMENT 11/14/20 24 2024 Active diphenhydrAMINE (BENADRYL) 25 MG capsuleIndicati ons:Crohn's disease of both small and large intestine with other complication (H) Take 2 capsules (50 mg) by mouth once every eight weeks. Administer 30 minutes prior to infusion 12 capsule 5 9:32 AM SUPERVISOR ASSEMBLY DEPARTMENT 11/14/20 24 2024 Active methylPREDNISol one Na Suc (PF) (solu-MEDROL) 40 mg in sodium chloride 0.9 % 4 mL injectionIndica tions:Crohn's disease of both small and large intestine with other complication (H) Inject 40 mg over 3-5 minutes into the vein via push once every eight weeks. Administer 30 minutes prior to infusion 28922 mL 5 9:32 AM SUPERVISOR ASSEMBLY DEPARTMENT 11/14/20 24 2024 Active sodium chloride, PF, 0.9% PF flushIndication s:Crohn's disease of both small and large intestine with other complication (H) Inject 10 mLs into the vein as needed for other (infusion reaction). For RN use only as needed for infusion reaction [id number] mL 11/14/20 24 2024 Active diphenhydrAMINE (BENADRYL) 50 MG/ML injectionIndica tions:Crohn's disease of both small and large intestine with other complication (H) Inject 1 mL (50 mg) over 3-5 minutes into the vein via push as needed for other (infusion reaction). For RN use only. Draw up in a syringe and administer IV push. Discard remainder of vial. 90659 mL 11/14/20 24 2024 Active EPINEPHrine (ANY [...] time in 5-15 minutes if symptoms persist. [id number] mL 11/14/20 24 2024 Active sodium chloride 0.9% infusionIndicat ions:Crohn's disease of both small and large intestine with other complication (H) Infuse 500 mLs into the vein as needed for other (infusion reaction). In case of mild reaction, administer via gravity at 20 mL/hr to keep vein open. In case of severe reaction, administer via gravity wide open on prime setting. [id number] mL 5 9:32 AM SUPERVISOR ASSEMBLY DEPARTMENT 11/14/20 24 2025 Active methylPREDNISol one Na Suc, PF, (SOLU-MEDROL) 125 mg/2 mL injectionIndica tions:Crohn's disease of both small and large intestine with other complication (H) Inject 2 mLs (125 mg) over 3-5 minutes into the vein via push as needed (infusion reaction). For RN use only. Reconstitute vial. Draw up methylPREDNISolone in a syringe and administer. Discard remainder of vial. [id number] mL 11/14/20 24 2024 Active sodium chloride, PF, 0.9% PF flushIndication s:Crohn's disease of both small and large intestine with other complication (H) Inject 10 mLs into the vein as needed for line flush. Flush IV before and after medication administration as directed and/or at least every 12 hours. [id number] mL 5 9:32 AM SUPERVISOR ASSEMBLY DEPARTMENT 11/14/20 24 2024 Active Emergency Supply Kit, PIV,Indications :Crohn's disease of both small and large intestine with other complication (H) Patient use for emergency only. Contents: 3 sodium chloride 0.9% flushes, 1 IV start kit, 1 microclave ext set 14, 1 each IV Cath 22 G/1 and 24G/3/4, 6 alcohol prep pads, 4 nitrile gloves (med). Call to reorder. [id number] kit 11/14/20 24 2024 Active Active Problems [...] on file Legal 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 SUPERVISOR ASSEMBLY DEPARTMENT Gender Identity Not on file Sexual Orientation Not on file Last Filed Vital Signs Vital Sign Reading Time Taken Comments Blood Pressure 124/75 12/19/2024 2:42 PM SUPERVISOR ASSEMBLY DEPARTMENT Pulse 76 12/19/2024 2:42 PM SUPERVISOR ASSEMBLY DEPARTMENT Temperature 36.7 C (98 F) 12/19/2024 2:42 PM SUPERVISOR ASSEMBLY DEPARTMENT Respiratory Rate 16 12/19/2024 2:42 PM SUPERVISOR ASSEMBLY DEPARTMENT Oxygen Saturation 98% 12/19/2024 2:42 PM SUPERVISOR ASSEMBLY DEPARTMENT Inhaled Oxygen Concentration - - Weight 129.3 kg (285 lb) 12/19/2024 1:05 PM SUPERVISOR ASSEMBLY DEPARTMENT Height 180.3 cm (5' 11) 12/19/2024 1:05 PM SUPERVISOR ASSEMBLY DEPARTMENT Body Mass Index 39.75 12/19/2024 1:05 PM SUPERVISOR ASSEMBLY DEPARTMENT Plan of Treatment Upcoming Encounters Date Type Department Care Team (Late st Contact Info) Description 01/12/2025 10:00 AM SUPERVISOR ASSEMBLY DEPARTMENT Office Visit [facility] [address] [phone] Megha Sanford MD [address] [place] [address] Procedures Procedure Name Priority Date/Time Associated Diagnosis Comments CBC WITH PLATELETS & DIFFERENTIAL Routine 12/19/2024 12:45 PM SUPERVISOR ASSEMBLY DEPARTMENT Crohn's disease of both small and large intestine without complications (H) EXTRA RED TOP TUBE (LAB USE ONLY) Routine 12/19/2024 12:45 PM SUPERVISOR ASSEMBLY DEPARTMENT Crohn's disease of both small and large intestine without complications (H) EXTRA RED TOP TUBE (LAB USE ONLY) Routine 12/19/2024 12:45 PM SUPERVISOR ASSEMBLY DEPARTMENT Crohn's disease of both small and large intestine without complications (H) EXTRA SERUM SEPARATOR TUBE (SST) (LAB USE ONLY) Routine 12/19/2024 12:45 PM SUPERVISOR ASSEMBLY DEPARTMENT Crohn's disease of both small and large intestine without complications (H) EXTRA SERUM SEPARATOR TUBE (SST) (LAB USE ONLY) Routine 12/19/2024 12:45 PM SUPERVISOR ASSEMBLY DEPARTMENT Crohn's disease of both small and large intestine without complications (H) CBC WITH PLATELETS AND DIFFERENTIAL Routine 12/19/2024 12:45 PM SUPERVISOR ASSEMBLY DEPARTMENT Crohn's disease of both small and large intestine without complications (H) VITAMIN B12 Routine 12/19/2024 12:45 PM SUPERVISOR ASSEMBLY DEPARTMENT Crohn's disease of both small and large intestine without complications (H) CRP INFLAMMATION Routine 12/19/2024 12:4 5 PM SUPERVISOR ASSEMBLY DEPARTMENT Crohn's disease of both small and large intestine without complications (H) HEPATIC FUNCTION PANEL Routine 12/19/2024 12:45 PM SUPERVISOR ASSEMBLY DEPARTMENT Crohn's disease of both small and large intestine without complications (H) HIV ANTIGEN ANTIBODY COMBO Add-On 01/20/2024 10:09 AM SUPERVISOR ASSEMBLY DEPARTMENT Crohn's disease of small intestine with abscess (H) High risk medication use HEPATITIS C ANTIBODY Add-On 01/20/2024 10:09 AM SUPERVISOR ASSEMBLY DEPARTMENT Crohn's disease of small intestine with abscess (H) High risk medication use BASIC METABOLIC PANEL Routine 12/08/2023 4:39 PM SUPERVISOR ASSEMBLY DEPARTMENT Arthralgia, unspecified joint High risk medication use CRP elevated COLONOSCOPY Routine 09/29/2023 9:29 AM SUPERVISOR ASSEMBLY DEPARTMENT from Last 3 Months or Most Recently Relevant to Health Maintenance Results * (ABNORMAL) CBC with platelets and differential (12/19/2024 12:45 PM SUPERVISOR ASSEMBLY DEPARTMENT) WBC Count 9.2 4.0 - 11.0 10e3/uL 12/19/2024 4:33 PM SUPERVISOR ASSEMBLY DEPARTMENT [facility] RBC Count 4.23(L) 4.40 - 5.90 10e6/uL 12/19/2024 4:33 PM SUPERVISOR ASSEMBLY DEPARTMENT [facility] Hemoglobin 14.8 13.3 - 17.7 g/dL 12/19/2024 4:33 PM SUPERVISOR ASSEMBLY DEPARTMENT [facility] Hematocrit 40.6 40.0 - 53.0 % 12/19/2024 4:33 PM SUPERVISOR ASSEMBLY DEPARTMENT [facility] MCV 96 78 - 100 fL 12/19/2024 4:33 PM SUPERVISOR ASSEMBLY DEPARTMENT [facility] MCH 35.0(H) 26.5 - 33.0 pg 12/19/2024 4:33 PM SUPERVISOR ASSEMBLY DEPARTMENT [facility] MCHC 36.5 31.5 - 36.5 g/dL 12/19/2024 4:33 PM SUPERVISOR ASSEMBLY DEPARTMENT [facility] RDW 12.6 10.0 - 15.0 % 12/19/2024 4:33 PM SUPERVISOR ASSEMBLY DEPARTMENT [facility] Platelet Count 239 150 - 450 10e3/uL 12/19/2024 4:33 PM SUPERVISOR ASSEMBLY DEPARTMENT [facility] % Neutrophils 65 % 12/19/2024 4:33 PM SUPERVISOR ASSEMBLY DEPARTMENT [facility] % Lymphocytes 25 % 12/19/2024 4:33 PM SUPERVISOR ASSEMBLY DEPARTMENT [facility] % Monocytes 7 % 12/19/2024 4:33 PM SUPERVISOR ASSEMBLY DEPARTMENT [facility] % Eosinophils 1 % 12/19/2024 4:33 PM SUPERVISOR ASSEMBLY DEPARTMENT [facility] % Basophils 1 % 12/19/2024 4:33 PM SUPERVISOR ASSEMBLY DEPARTMENT [facility] % Immature Granulocytes 0 % 12/19/2024 4:33 PM SUPERVISOR ASSEMBLY DEPARTMENT [facility] NRBCs per 100 WBC 0 <1 /100 025 4:33 PM SUPERVISOR ASSEMBLY DEPARTMENT [facility] Absolute Neutrophils 6.0 1.6 - 8.3 10e3/uL 12/19/2024 4:33 PM SUPERVISOR ASSEMBLY DEPARTMENT [facility] Absolute Lymphocytes 2.3 0.8 - 5.3 10e3/uL 12/19/2024 4:33 PM SUPERVISOR ASSEMBLY DEPARTMENT [facility] Absolute Monocytes 0.7 0.0 - 1.3 10e3/uL 12/19/2024 4:33 PM SUPERVISOR ASSEMBLY DEPARTMENT [facility] Absolute Eosinophils 0.1 0.0 - 0.7 10e3/uL 12/19/2024 4:33 PM SUPERVISOR ASSEMBLY DEPARTMENT [facility] Absolute Basophils 0.1 0.0 - 0.2 10e3/uL 12/19/2024 4:33 PM SUPERVISOR ASSEMBLY DEPARTMENT [facility] Absolute Immature Granulocytes 0.0 <=0.4 10e3/uL 12/19/2024 4:33 PM SUPERVISOR ASSEMBLY DEPARTMENT [facility] Absolute NRBCs 0.0 10e3/uL 12/19/2024 4:33 PM SUPERVISOR ASSEMBLY DEPARTMENT [facility] Blood BLOOD SPECIMEN / Unknown Client Draw / Unknown 12/19/2024 12:45 PM SUPERVISOR ASSEMBLY DEPARTMENT 12/19/2024 4:19 PM SUPERVISOR ASSEMBLY DEPARTMENT Megha Sanford MD LAB - BLOOD ORDERABLE S Final Result LABORATORY [facility] Core Lab [address] [facility], [address] * Extra SST Tube (LAB USE ONLY) (12/19/2024 12:45 PM SUPERVISOR ASSEMBLY DEPARTMENT) Only the most recent of2 resultswithin the time period is included. Hold Specimen [facility] 12/19/2024 5:31 PM SUPERVISOR ASSEMBLY DEPARTMENT LABORATORY Blood BLOOD SPECIMEN / Unknown Client Draw / Unknown 12/19/2024 12:45 PM SUPERVISOR ASSEMBLY DEPARTMENT 12/19/2024 4:19 PM SUPERVISOR ASSEMBLY DEPARTMENT Megha Sanford MD LAB - BLOOD ORDERABLE S Final Result LABORATORY [facility] Core Lab [address] [facility], [address] * Extra Red Top Tube (LAB USE ONLY) (12/19/2024 12:45 PM SUPERVISOR ASSEMBLY DEPARTMENT) Only the most recent of2 resultswithin the time period is included. Hold Specimen [facility] 12/19/2024 5:31 PM SUPERVISOR ASSEMBLY DEPARTMENT [facility] Blood BLOOD SPECIMEN / Unknown Client Draw / Unknown 12/19/2024 12:45 PM SUPERVISOR ASSEMBLY DEPARTMENT 12/19/2024 4:19 PM SUPERVISOR ASSEMBLY DEPARTMENT us Megha Sanford MD LAB - BLOOD ORDERABLE S Final Result [facility] Core Lab [address] [facility], [address] * Hepatic function panel (12/19/2024 12:45 PM SUPERVISOR ASSEMBLY DEPARTMENT) Protein Total 7.4 6.4 - 8.3 g/dL 12/19/2024 5:26 PM SUPERVISOR ASSEMBLY DEPARTMENT [facility] Albumin 4.3 3.5 - 5.2 g/dL 12/19/2024 5:26 PM SUPERVISOR ASSEMBLY DEPARTMENT [facility] Bilirubin Total 0.3 <=1.2 mg/dL 12/19/2024 5:26 PM SUPERVISOR ASSEMBLY DEPARTMENT [facility] Alkaline Phosphatase 120 40 - 150 U/L 12/19/2024 5:26 PM SUPERVISOR ASSEMBLY DEPARTMENT [facility] AST 34 0 - 45 U/L 12/19/2024 5:26 PM SUPERVISOR ASSEMBLY DEPARTMENT [facility] ALT 41 0 - 70 U/L 12/19/2024 5:26 PM SUPERVISOR ASSEMBLY DEPARTMENT [facility] Bilirubin Direct <0.20 0.00 - 0.30 mg/dL 12/19/2024 5:26 PM SUPERVISOR ASSEMBLY DEPARTMENT [facility] Blood BLOOD SPECIMEN / Unknown Client Draw / Unknown 12/19/2024 12:45 PM SUPERVISOR ASSEMBLY DEPARTMENT 12/19/2024 4:19 PM SUPERVISOR ASSEMBLY DEPARTMENT us Megha Sanford MD LAB - BLOOD ORDERABLE S Final Result U LAB[facility]ATORY [facility] Core Lab [address] [facility], [address] [address] [place] [address] * (ABNORMAL) CRP inflammation (12/19/2024 12:45 PM SUPERVISOR ASSEMBLY DEPARTMENT) CRP Inflammation 6.26(H) <5.00 mg/L 12/19/2024 5:26 PM SUPERVISOR ASSEMBLY DEPARTMENT [facility] Blood BLOOD SPECIMEN / Unknown Client Draw / Unknown 12/19/2024 12:45 PM SUPERVISOR ASSEMBLY DEPARTMENT 12/19/2024 4:19 PM SUPERVISOR ASSEMBLY DEPARTMENT us Megha Sanford MD LAB - BLOOD ORDERABLE S Final Result LABORATORY [facility] Core Lab [address] [facility], Room [address] [phone] * Vitamin B12 (12/19/2024 12:45 PM SUPERVISOR ASSEMBLY DEPARTMENT) Vitamin B12 521 232 - 1,245 pg/mL 12/19/2024 5:26 PM SUPERVISOR ASSEMBLY DEPARTMENT LABORATORY Blood BLOOD SPECIMEN / Unknown Client Draw / Unknown 12/19/2024 12:45 PM SUPERVISOR ASSEMBLY DEPARTMENT 12/19/2024 4:19 PM SUPERVISOR ASSEMBLY DEPARTMENT us Megha Sanford MD LAB - BLOOD ORDERABLE S Final Result Performing Organization Address City/[facility] [address]/ZIP Co de Phone Number LABORATORY [facility] Core Lab [address] [facility], [address] [phone] * HIV Antigen Antibody Combo [place] (01/20/2024 10:09 AM SUPERVISOR ASSEMBLY DEPARTMENT) HIV Antigen Antibody Combo Nonreactive Nonreactive 01/20/2024 10:07 PM SUPERVISOR ASSEMBLY DEPARTMENT LABORATORY Comment:Negative HIV-1/-2 an tigen and antibody screening test results usually indicate the absence of HIV-1 and HIV-2 infection. However, such negative results do not rule-out acute HIV infection. If acute HIV-1 or HIV-2 infection is suspected, detection of HIV-1 or HIV-2 RNA is recommended. Blood STRUCTURE OF RIGHT UPPER LIMB / Unknown Venipuncture / Unknown 01/20/2024 10:09 AM SUPERVISOR ASSEMBLY DEPARTMENT 01/20/2024 10:09 AM SUPERVISOR ASSEMBLY DEPARTMENT Miguel Stoll MD LAB - BLOOD ORDERABLES Fi nal Result LABORATORY [facility] Core Lab [address] [facility], [address] [address] [phone] * Hepatitis C antibody (01/20/2024 10:09 AM SUPERVISOR ASSEMBLY DEPARTMENT) Pathologist [facility] Hepatitis C Antibody Nonreactive Nonreactive 01/20/2024 10:28 PM SUPERVISOR ASSEMBLY DEPARTMENT [facility] Comment:A nonreactive screen ing test result [...] Unknown Venipuncture / Unknown 01/20/2024 10:09 AM SUPERVISOR ASSEMBLY DEPARTMENT 01/20/2024 10:09 AM SUPERVISOR ASSEMBLY DEPARTMENT us Miguel Stoll MD LAB - BLOOD ORDERABLES Fi nal Result LABORATORY [facility] Core Lab [address] [facility], [address] [address], [facility] [phone] * (ABNORMAL) Basic metabolic panel (12/08/2023 4:39 PM SUPERVISOR ASSEMBLY DEPARTMENT) [facility] Sodium 139 135 - 145 mmol/L 12/08/2023 5:06 PM [facility] LABOR[facility] - CORE LAB Comment:Reference intervals for this test were updated on 08/11/2023 to more accurately reflect our healthy population. There may be differences in the flagging of prior results with similar values performed with this method. Interpretation of those prior results can be made in the context of the updated reference intervals. Potassium 3.7 3.4 - 5.3 mmol/L 12/08/2023 5:06 PM [facility] - CORE LAB Chloride 102 98 - 107 mmol/L 12/08/2023 5:06 PM [facility] - CORE LAB Carbon Dioxide (CO2) 28 22 - 29 mmol/L 12/08/2023 5:06 PM [facility] - CORE LAB Anion Gap 9 7 - 15 mmol/L 12/08/2023 5:06 PM [facility] - CORE LAB Urea Nitrogen 13.7 6.0 - 20.0 mg/dL 12/08/2023 5:06 PM SUPERVISOR ASSEMBLY DEPARTMENT [facility] LABORATORY - CORE LAB Creatinine 0.87 0.67 - 1.17 mg/dL 12/08/2023 5:06 PM SUPERVISOR ASSEMBLY DEPARTMENT [facility] LABORATORY - CORE LAB GFR Estimate >90 >60 mL/min/1. 73m2 12/08/2023 5:06 PM SUPERVISOR ASSEMBLY DEPARTMENT [facility] LABORATORY - CORE LAB Calcium 9.3 8.6 - 10.0 mg/dL 12/08/2023 5:06 PM SUPERVISOR ASSEMBLY DEPARTMENT [facility] LABORATORY - CORE LAB Glucose 108(H) 70 - 99 mg/dL 12/08/2023 5:06 PM SUPERVISOR ASSEMBLY DEPARTMENT [facility] LABORATORY - CORE LAB Blood STRUCTURE OF LEFT UPPER LIMB / Unknown Venipuncture / Unknown 12/08/2023 4:39 PM SUPERVISOR ASSEMBLY DEPARTMENT 12/08/2023 4:39 PM SUPERVISOR ASSEMBLY DEPARTMENT us Megha Sanford MD LAB - BLOOD ORDERABLE S Final Result [facility] LABORATORY - CORE LAB [facility] Clinics and Surgery [address] [place] [address] * COLONOSCOPY (09/29/2023 9:29 AM SUPERVISOR ASSEMBLY DEPARTMENT) [facility] COLONOSCOPY Clinics and Surgery Center [address] [place] [address] [phone] Endoscopy Department Patient Name: Demetri Castillo Procedure Date: 09/29/2023 9:29 AM Date of : 1990 Admit Type: Outpatient Age: 33 Room: [facility] PROCEDURE ROOM 02 Gender: Male Note Status: [...] (sacral osteomyelitis). Providers: MEGHA SANFORD MD, Ashley Lopez, RN, SKY LAMB Referring MD: MEGHA SANFORD MD, CISCO WOOTEN MD [...] 12:00:16 PM RADIOLOGY RESULTS 09/29/2023 9:29 AM SUPERVISOR ASSEMBLY DEPARTMENT us Megha Sanford MD PROCEDURES Final Result RADIOLOGY RESULTS from Last 3 Months or Most Recently Relevant to Health Maintenance Insurance [place] [address] [facility] Member Subscriber Plan / Payer (Ef fective 2022-Present) Name:Demetri Castillo Relation to Subscriber:Self Name:Demetri Castillo Payer ID:[id number] (NAIC) Type:PPO Address: [facility] [address] [place] [id number] [facility] * Guarantor: Demetri Castillo Account Type Relation to Patient Date of Phone Billing Address Medication Therapy Self 1990 [address] [place] [address] [facility] Advance Directives For more information, please contact: [phone] * Full Code (Latest Code Status on File) Date Activated Date Inactivated Comments 02/28/2022 4:20 AM 02/28/2022 6:03 PM All basic a nd advanced life-sustaining interventions are performed as appropriate Question Answer Comments Code status determined by: Discussion with patie nt/ legal decision maker * Full Code Date Activated Date Inactivated Comments 12/03/2021 3:04 AM 12/04/2021 2:27 PM All basic an d advanced life-sustaining interventions are performed as appropriate Question Answer Comments Code status determined by: Discussion with patie nt/ legal decision maker Care Teams Fitting Supervisor Relationship Specialty Start Date End Date Sushant Schreiber MD [address] [address] PCP - General Family Medicine 12/02/21 No Ref-Primary, Physician 12/02/21 Cisco Wooten MD [address] [place] [address] [phone] Fellow Gastroenterology 12/09/21 Yung Rodriguez MD [address] [facility] [address] [place] [address] [phone] Cardiovascular Disease 12/25/21 Tatianna Horne, [facility] [address] [place] [address] [phone] Pharmacist Pharmacist Hog Sawyer 02/06/22 Billie Tucker, JANELL Specialty Milking Machine Technician Gastroenterology 12/10/22 Megha Sanford MD [address] [place] [address] [phone] Gastroenterology 12/25/22 Megha Sanford MD [address] [place] [address] [phone] Referring Physician Gastroenterology 01/14/23 Jt Waters MD [address] [place], [place] [phone] Dermatology 01/14/23 Bhavik Segura PA-C [address] [place] [address] [phone] Physician Hotel Maintenance Worker Gastroenterology 04/28/23 Megha Sanford MD [address] [place] [phone] Assigned Gastroenterology Provider 07/18/23 Favian Mcknight MD [address] [place] [id number] Dermatology 12/09/23 Favian Mcknight MD [address] [place] [address] [phone] Assigned Surgical Provider 01/29/24 Tatianna Horne [facility] [address] [place] [address] [id number] Assigned MTM Pharmacist 07/08/24 Lyudmila Baltazar, RN Home Infusion [place] [facility] 08/29/24
--- OUTSIDE RECORDS SUMMARY | 2024-12-22 04:58 | XMS_ITS | Encounter Summary ---
Author Organization [place] Address [address] [place] [address] Care Team Providers Care Lining Maker Name Role Phone Sushant Schreiber MD Primary Care Provider [phone] Ref-Primary, Physician Unavailable [phone] Cisco Caceres MD Unavailable [phone] Yung Rodriguez MD Unavailable Tatianna Horne [facility] Unavailable [phone] Billie Tucker RN Unavailable Unavailable Paul Sanford MD Unavailable [phone] Paul Sanford MD Unavailable [phone] Jt Waters MD Unavailable Jt Waters MD Unavailable Bhavik Segura PA-C Unavailable +[phone] Paul Sanford MD Unavailable [phone] Favian Mcknight MD Unavailable [phone] Favian Mcknight MD Unavailable [phone] Tatianna Horne [facility] Unavailable [phone] Lyudmila Baltazar RN Unavailable Unavailabl e Encounter Details Date Type Department Care Team (Late st Contact Info) Description 01/19/2024 [facility] Gastroenterology Clinic [address] 4th [place] [address] Paul Sanford MD [address] [place] [address] Social History Tobacco Use Types Packs/Day Years [...] on file Legal 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 NUTRITION INSTRUCTOR Gender Identity Not on file Sexual Orientation Not on file documented as of this encounter Plan of Treatment Upcoming Encounters Date Type Department Care Team (Late st Contact Info) Description 01/12/2025 10:00 AM NUTRITION INSTRUCTOR [facility] Gastroenterology Clinic [address] 4th [place] [phone] Paul Sanford MD [address] [place] [address] documented as of this encounter Visit Diagnoses Not on filedocumented in this encounter Care Teams Lining Maker Relationship Specialty Start Date End Date Sushant Schreiber MD [facility] [address] [place] [address] PCP - General Family Medicine 12/02/21 No Ref-Primary, Physician 12/02/21 Cisco Caceres MD [address] [place] [address] 284 [place], [place] 224665 Fellow Gastroenterology 12/09/21 Yung Rodriguez MD [address] [place] [address] Cardiovascular Disease 12/25/21 Tatianna Horne, [facility] [address] [place] [address] 613315 Pharmacist Pharmacist Human Anatomy Teacher 02/06/22 Billie Tucker, RN Specialty Coil Strapper Gastroenterology 12/10/22 Paul Sanford MD [address] [place] [address] Gastroenterology 12/25/22 Paul Sanford MD [address] [place] [address] Referring Physician Gastroenterology 01/14/23 Jt Waters MD [address] [place] [address] Dermatology 01/14/23 Jt Waters MD [address] [place] [address] 41072 Assigned Surgical Provider 01/17/23 01/28/24 Bhavik Segura PA-C [address] [place] [address] Physician Sound Editor Gastroenterology 04/28/23 Paul Sanford MD [address] [place] [address] Assigned Gastroenterology Provider 07/18/23 Favian Mcknight MD [address] [place] [address] Dermatology 12/09/23 Favian Mcknight MD [address] [place], [place] 076955 Assigned Surgical Provider 01/29/24 Tatianna Horne [facility] [address] [place] [address] Assigned MTM Pharmacist 07/08/24 Lyudmila Baltazar, RN Home Infusion Client Support Manager 08/29/24 documented as of this encounter
[2024-12-22 04:59] VITALS: BP 183/125; PULSE 99; RESP 18; TEMP 36.7; O2SAT 96; BMI 40.4
--- OUTSIDE RECORDS SUMMARY | 2024-12-22 04:59 | XMS_ITS | Encounter Summary ---
Author Organization [place] Address [address] [place] [address] Care Team Providers Care Rod Mill Tender Name Role Phone Sushant Schreiber MD Primary Care Provider [phone] Ref-Primary, Physician Unavailable [phone] Cisco Caceres MD Unavailable [phone] Yung Rodriguez MD Unavailable Tatianna Horne [facility] Unavailable [phone] Billie Tucker RN Unavailable Unavailable Paul Sanford MD Unavailable [phone] Paul Sanford MD Unavailable [phone] Jt Waters MD Unavailable Jt Waters MD Unavailable Bhavik Segura PA-C Unavailable [phone] Paul Sanford MD Unavailable [phone] Favian Mcknight MD Unavailable [phone] Favian Mcknight MD Unavailable [phone] Tatianna Horne [facility] Unavailable [phone] Lyudmila Baltazar RN Unavailable Unavailabl e Encounter Details Date Type Department Care Team (Late st Contact Info) Description 12/23/2023 [facility] Rhe[facility]ology Clinic [address] [address] Elsa Ayala, RN Social History [...] on file Legal 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 Gender Identity Not on file Sexual Orientation Not on file documented as of this encounter Plan of Treatment Upcoming Encounters Date Type Department Care Team (Late st Contact Info) Description 01/12/2025 10:00 AM DATA CENTER CONSULTANT Office Visit [facility] Gastroenterology Clinic [place] [address] [phone] Paul Sanford MD [address] [place] [address] 413835 documented as of this encounter Visit Diagnoses Not on filedocumented in this encounter Care Teams Rod Mill Tender Relationship Specialty Start Date End Date Sushant Schreiber MD [facility] [address] [place] [address] PCP - General Family Medicine 12/02/21 No Ref-Primary, Physician 12/02/21 Cisco Caceres MD [address] [place] [address] 284 [place], [place] 103675 Fellow Gastroenterology 12/09/21 Yung Rodriguez MD [address] [facility] [address] [place] [address] Cardiovascular Disease 12/25/21 Tatianna Horne, [facility] [address] [place] [address] Pharmacist Pharmacist Shop Estimator 02/06/22 Billie Tucker, RN Specialty Loin Puller Gastroenterology 12/10/22 Paul Sanford MD [address] [place] [address] Gastroenterology 12/25/22 Paul Sanford MD [address] [place] [address] Referring Physician Gastroenterology 01/14/23 Jt Waters MD [address] [place] [address] Dermatology 01/14/23 Jt Waters MD [address] [place] [address] 15820 Assigned Surgical Provider 01/17/23 01/28/24 Bhavik Segura PA-C [address] [place] [address] Physician Psychiatric Aides Teacher Gastroenterology 04/28/23 Paul Sanford MD [address] [place] [address] Assigned Gastroenterology Provider 07/18/23 Favian Mcknight MD [address] [place] [address] Dermatology 12/09/23 Favian Mcknight MD [address] [place] [address] 48790 Assigned Surgical Provider 01/29/24 Tatianna Horne [facility] [address] [place] [address] Assigned MTM Pharmacist 07/08/24 Lyudmila Baltazar, RN Home Infusion Senior Gamemaster 08/29/24 documented as of this encounter
--- OUTSIDE RECORDS SUMMARY | 2024-12-22 04:59 | XMS_ITS | Encounter Summary ---
Author Organization [place] Address [address] [place] [address] Care Team Providers Care Electrical Installation Inspector Name Role Phone Sushant Schreiber MD Primary Care Provider [phone] No Ref-Primary, Physician Unavailable [phone] Cisco Caceres MD Unavailable [phone] Sabiha Hogan APRN, CNP Unavailable [phone] Yung Rodriguez MD Unavailable Tatianna Horne [facility] Unavailable Tatianna Horne [facility] Unavailable Billie Tucker RN Unavailable Unavailable Paul Sanford MD Unavailable Paul Sanford MD Unavailable [phone] Jt Waters MD Unavailable Jt Waters MD Unavailable Bhavik Segura PA-C Unavailable [phone] Paul Sanford MD Unavailable Favian Mcknight MD Unavailable [phone] Favian Mcknight MD Unavailable [phone] Tatianna Horne [facility] Unavailable Lyudmila Baltazar RN Unavailable Unavailabl e Encounter Details Date Type Department Care Team (Late st Contact Info) Description 01/28/[address] 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 No / Unsure 01/14/2023 9:50 AM GENERAL INTERNIST AND PHYSICIAN LEADER documented as of this encounter Plan of Treatment Upcoming Encounters Date Type Department Care Team (Late st Contact Info) Description 01/12/2025 10:00 AM GENERAL INTERNIST AND PHYSICIAN LEADER Office Visit [facility] Gastroenterology Clinic [address] [phone] Paul Sanford MD [address] [place] [address] documented as of this encounter Visit Diagnoses Not on filedocumented in this encounter Care Teams Electrical Installation Inspector Relationship Specialty Start Date End Date Sushant Schreiber MD [facility] [address] [address] PCP - General Family Medicine 12/02/21 No Ref-Primary, Physician 12/02/21 Cisco Caceres MD [address] [place] [address] Fellow Gastroenterology 12/09/21 Sabiha Hogan APRN APPRAISAL ANALYST [address] [place] [address] Assigned Heart and Vascular Provider 12/15/21 02/13/23 Yung Rodriguez MD [address] [place] [address] Cardiovascular Disease 12/25/21 [facility] [address] [place] [address] Pharmacist Pharmacist Dressmaker Helper 02/06/22 [facility] [address] [place] [address] Assigned MTM Pharmacist 08/13/22 Billie Tucker, RN Specialty Physical Medicine Specialist Gastroenterology 12/10/22 Paul Sanford MD [address] [place] [address] Gastroenterology 12/25/22 Paul Sanford MD [address] [place] [address] Referring Physician Gastroenterology 01/14/23 Jt Waters MD 500 [place] [address] Dermatology 01/14/23 Jt Waters MD [address] [place] [address] Assigned Surgical Provider 01/17/23 01/28/24 Bhavik Segura PA-C [address] [place] [address] Physician Documentation Billing Clerk Gastroenterology 04/28/23 Paul Sanford MD [address] [place] [address] Assigned Gastroenterology Provider 07/18/23 Favian Mcknight MD [address] [place] [address] MD Dermatology 12/09/23 Favian Mcknight MD [address] [place] [address] 72097 Assigned Surgical Provider 01/29/24 Tatianna Horne [facility] [address] [place] [address] Assigned MTM Pharmacist 07/08/24 Lyudmila Baltazar, RN Home Infusion Beam Warper 08/29/24 documented as of this encounter
--- OUTSIDE RECORDS SUMMARY | 2024-12-22 04:59 | XMS_ITS | Encounter Summary ---
Author Organization [place] Address [address] [place] [address] Care Team Providers Care Beauty Operator Name Role Phone Sushant Schreiber MD Primary Care Provider [phone] No Ref-Primary, Physician Unavailable [phone] iCsco Caceres MD Unavailable [phone] Sabiha Hogan APRN, CNP Unavailable [phone] Yung Rodriguez MD Unavailable Tatianna Horne [facility] Unavailable Tatianna Horne [facility] Unavailable [phone] Billie Tucker RN Unavailable Unavailable Paul Sanford MD Unavailable [phone] Paul Sanford MD Unavailable [phone] Jt Waters MD Unavailable Jt Waters MD Unavailable Bhavik Segura PA-C Unavailable [phone] Paul Sanford MD Unavailable Favian Mcknight MD Unavailable [phone] Favian Mcknight MD Unavailable [phone] Tatianna Horne [facility] Unavailable Lyudmila Baltazar RN Unavailable Unavailabl e Encounter Details Date Type Department Care Team (Late st Contact Info) Description 01/20/2023 MyC Medical Advice [facility] Gastroenterology Clinic [address] [phone] Billie Tucker RN Social History Tobacco Use [...] on file Legal 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 No / Unsure 01/14/2023 9:50 AM POULTRY BARN MANAGER documented as of this encounter Plan of Treatment Upcoming Encounters Date Type Department Care Team (Late Contact Info) Description 01/12/2025 10:00 AM POULTRY BARN MANAGER Office Visit [facility] Gastroenterology Clinic [address] [phone] Paul Sanford MD [address] [place] [address] documented as of this encounter Visit Diagnoses Not on filedocumented in this encounter Care Teams Beauty Operator Relationship Specialty Start Date End Date Sushant Schreiber MD [facility] [address] [place] [address] PCP - General Family Medicine 12/02/21 No Ref-Primary, Physician 12/02/21 Cisco Caceres MD [address] [place] [address] 284 [place] [address] Fellow Gastroenterology 12/09/21 Sabiha Hogan APRN KILN PLACER [address] [place] [id number] Assigned Heart and Vascular Provider 12/15/21 02/13/23 Yung Rodriguez MD [address] [place] [id number] Cardiovascular Disease 12/25/21 [facility] 909 [place] [address] Pharmacist Pharmacist Medical Insurance Verifier 02/06/22 [facility] [address] [place], [place] 943955 Assigned MTM Pharmacist 08/13/22 Billie Tucker, RN Specialty Global Cmo Gastroenterology 12/10/22 Paul Sanford MD 500 [place] [address] Gastroenterology 12/25/22 Paul Sanford MD 500 [place] [address] Referring Physician Gastroenterology 01/14/23 Jt Waters MD 500 [place] [address] Dermatology 01/14/23 Jt Waters MD 500 [place] [address] Assigned Surgical Provider 01/17/23 01/28/24 Bhavik Segura PA-C [address] [place] [address] 357705 Physician Commercial Loan Processor Gastroenterology 04/28/23 Paul Sanford MD [address] [place] [address] Assigned Gastroenterology Provider 07/18/23 Favian Mcknight MD [address] [place] [address] 084155 MD Rodríguez 12/09/23 Favian Mcknight MD [address] [place] [address]883 Assigned Surgical Provider 01/29/24 Tatianna Horne [facility] [address] [place] [address] 501135 Assigned MTM Pharmacist 07/08/24 Lyudmila Baltazar, RN Home Infusion Rewind Operator 08/29/24 documented as of this encounter
--- OUTSIDE RECORDS SUMMARY | 2024-12-22 04:59 | XMS_ITS | Encounter Summary ---
Author Organization [place] Address [address] [place] [address]898 Care Team Providers Care Stock Supervisor Name Role Phone Sushant Schreiber MD Primary Care Provider [phone] No Ref-Primary, Physician Unavailable [phone] Cisco Caceres MD Unavailable [phone] Yung Rodriguez MD Unavailable Tatianna Horne [facility] Unavailable [phone] Billie Tucker RN Unavailable Unavailable Paul Sanford MD Unavailable [phone] Paul Sanford MD Unavailable [phone] Jt Waters MD Unavailable Jt Waters MD Unavailable Bhavik Segura PA-C Unavailable [phone] Paul Sanford MD Unavailable [phone] Favian Mcknight MD Unavailable [phone] Favian Mcknight MD Unavailable [phone] Tatianna Horne [facility] Unavailable [phone] Lyudmila Baltazar RN Unavailable Unavailabl e Encounter Details Date Type Department Care Team (Late st Contact Info) Description 12/23/2023 [facility] G[facility]ology Clinic [address] 4th [place] [address] Cisco Caceres MD [address] [address] Social History Tobacco Use Types Packs/Day Years [...] on file Legal 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 Gender Identity Not on file Sexual Orientation Not on file documented as of this encounter Plan of Treatment Upcoming Encounters Date Type Department Care Team (Late st Contact Info) Description 01/12/2025 10:00 AM OIL PROGRAM COMPLIANCE SPECIALIST Office Visit [facility] Gastroenterology Clinic [address] 4th [place] [phone] Paul Sanford MD [address] [place] [address] documented as of this encounter Visit Diagnoses Not on filedocumented in this encounter Care Teams Stock Supervisor Relationship Specialty Start Date End Date Sushant Schreiber MD [facility] & [address] [address] PCP - General Family Medicine 12/02/21 No Ref-Primary, Physician 12/02/21 Cisco Caceres MD [address] [place] [address] Fellow Gastroenterology 12/09/21 Yung Rodriguez MD [address] [place], [place] 410585 Cardiovascular Disease 12/25/21 Tatianna Horne [facility] [address] [place] [address] Pharmacist Pharmacist French Binder 02/06/22 Billie Tucker, RN Specialty Absence Management Consultant Gastroenterology 12/10/22 Paul Sanford MD [address] [place] [address] Gastroenterology 12/25/22 Paul Sanford MD [address] [place] [address] Referring Physician Gastroenterology 01/14/23 Jt Waters MD [address] [place] [address] Dermatology 01/14/23 Jt Waters MD [address] [place] [address]4723 Assigned Surgical Provider 01/17/23 01/28/24 Bhavik Segura PA-C [address] [place] [address]647 Physician Educational Institution President Gastroenterology 04/28/23 Paul Sanford MD [address] [place] [address] 6[address] Assigned Gastroenterology Provider 07/18/23 Favian Mcknight MD [address] [place] [address] Dermatology 12/09/23 Favian Mcknight MD [address] [place], [place] 955135 Assigned Surgical Provider 01/29/24 Tatianna Horne [facility] [address] [place], [place] 8448[address] Assigned MTM Pharmacist 07/08/24 Lyudmila Baltazar, RN Home Infusion Paper And Prints Restorer 08/29/24 documented as of this encounter
--- OUTSIDE RECORDS SUMMARY | 2024-12-22 04:59 | XMS_ITS | Encounter Summary ---
Author Organization [place] Address [address] [place] [address] Care Team Providers Care Lumber Inspector Name Role Phone Ambreen Suresh MD Primary Care Provider No Ref-Primary, Physician Primary Care Provider Sushant Schreiber MD Primary Care Provider [phone] No Ref-Primary, Physician Unavailable [phone] Cisco Caceres MD Unavailable [phone] Sabiha Hogan APRN CERTIFIED WELLNESS PROGRAM MANAGER Unavailable [phone] Yung Rodriguez MD Unavailable Tatinana Horne [facility] Unavailable [phone] Tatianna Horne [facility] Unavailable [phone] Tatianna Horne [facility] Unavailable [phone] Billie Tucker RN Unavailable Unavailable [facility] Unavailable [phone] Paul Sanford MD Unavailable [phone] Paul Sanford MD Unavailable [phone] Jt Waters MD Unavailable Jt Waters MD Unavailable Bhavik SeguraC Unavailable [phone] Paul Sanford MD Unavailable [phone] Favian Mcknight MD Unavailable Favian Mcknight MD Unavailable [phone] Abhijeetmaryanne Tatiannashree Rojo [facility] Unavailable Lyudmila Baltazar RN Unavailable Unavailabl e Encounter Details Date Type Department Care Team (Late Contact Info) Description 06/28/[address] [phone] Julio Pierson MD [address] [place] [address] [facility] Social History Tobacco Use Types Packs/Day Years Used Date Smoking Tobacco: Former Cigarettes Q uit: 05/01/2015 Smokeless Tobacco: Never Alcohol Use Standard Drinks/Week Comments Not Currently 0 (1 standard drink = 0.6 oz pur e alcohol) stop drinking 06/2020 Sex and Gender Information Value Date Recorded Sex Assigned at Not on file Legal 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 Gender Identity Not on file Sexual Orientation Not on file documented as of this encounter Plan of Treatment Upcoming Encounters Date Type Department Care Team (Late Contact Info) Description 01/12/2025 10:00 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 Office Visit [facility] Gastroenterology Clinic [address] [phone] Paul Sanford MD [address] [place] [address] documented as of this encounter Visit Diagnoses Not on filedocumented in this encounter Additional Health Concerns Infection Onset Date Last Indicated Resolved Time Rule Out COVID-19 12/02/2021 12/02/2021 12/02/2021 5:53 PM POWER 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 COVID-19 02/27/2022 02/27/2022 03/20/2022 11:3 9 PM CDT documented as of this encounter Care Teams Lumber Inspector Relationship Specialty Start Date End Date Ambreen Suresh MD [address] [place] [address] PCP - General 07/07/03 02/21/13 No Ref-Primary, Physician PCP - General 02/22/13 12/01/21 Sushant Schreiber MD [facility] [address] [address] PCP - General Family Medicine 12/02/21 No Ref-Primary, Physician 12/02/21 Cisco Caceres MD [address] [place] [address] Fellow Gastroenterology 12/09/21 Sabiha Hogan APRN CERTIFIED WELLNESS PROGRAM MANAGER [address] [place] [address] Assigned Heart and Vascular Provider 12/15/21 02/13/23 Yung Rodriguez MD [address] [facility] [address] [place] [address] Cardiovascular Disease 12/25/21 Tatianna Horne [facility] [address] [place] [address] Pharmacist Pharmacist Block Setter Gypsum 02/06/22 Tatianna Horne [facility] [address] [place] [address] Assigned MTM Pharmacist 04/12/22 Tatianna Horne [facility] [address] [place] [address] Assigned [place] Pharmacist 08/13/22 Billie Tucker, RN Specialty Printed Circuit Board Panels Developer Gastroenterology 12/10/22 [place] PA-C [address] [place] [address] Physician Pay Agent Dermatology 12/25/22 01/13/23 Paul Sanford MD 500 [place], [place] 482625 MD Gastroenterology 12/25/22 Paul Sanford MD 500 [place], [place] 336125 Referring Physician Gastroenterology 01/14/23 Jt Waters MD 500 [place], [place] 533425 MD Dermatology 01/14/23 Jt Waters MD 500 [place] [address] Assigned Surgical Provider 01/17/23 01/28/24 Bhavik Segura PA-C [address] [place], [place] 100485 Physician Pay Agent Gastroenterology 04/28/23 Paul Sanford MD 500 [place] [address] Assigned Gastroenterology Provider 07/18/23 Favian Mcknight MD [address] [place] [address] Dermatology 12/09/23 Favian Mcknight MD [address] [place] [address] Assigned Surgical Provider 01/29/24 Tatianna Horne [facility] [address] [place] [address] Assigned MTM Pharmacist 07/08/24 Lyudmila Baltazar, RN Home Infusion Model Maker Plastic 08/29/24 documented as of this encounter
--- OUTSIDE RECORDS SUMMARY | 2024-12-22 04:59 | XMS_ITS | Encounter Summary ---
Author Organization [facility] Address [address] [place] [address] Care Team Providers Care Chicken Sexer Name Role Phone Sushant Schreiber MD Primary Care Provider [phone] No Ref-Primary, Physician Unavailable [phone] Cisco Caceres MD Unavailable [phone] Yung Rodriguez MD Unavailable Tatianna Horne [facility] Unavailable [phone] Billie Tucker RN Unavailable Unavailable Paul Sanford MD Unavailable [phone] Paul Sanford MD Unavailable [phone] Jt Waters MD Unavailable Jt Waters MD Unavailable Bhavik Segura PA-C Unavailable [phone] Paul Sanford MD Unavailable [phone] Favian Mcknight MD Unavailable [phone] Favian Mcknight MD Unavailable [phone] Tatianna Horne [facility] Unavailable [phone] Lyudmila Baltazar RN Unavailable Unavailabl e Encounter Details Date Type Department Care Team (Late st Contact Info) Description 12/16/2023 [facility] [address] 4th [place] [address] Billie Tucker RN Social History [...] on file Legal 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 Gender Identity Not on file Sexual Orientation Not on file documented as of this encounter Plan of Treatment Upcoming Encounters Date Type Department Care Team (Late st Contact Info) Description 01/12/2025 10:00 AM STAVE 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 OPERATOR Office Visit [facility]ology Clinic [address]th [place] [phone] Paul Sanford MD [address] [place] [address] 195905 documented as of this encounter Visit Diagnoses Not on filedocumented in this encounter Care Teams Chicken Sexer Relationship Specialty Start Date End Date Sushant Schreiber MD [facility] [address] [place] [address] PCP - General Family Medicine 12/02/21 No Ref-Primary, Physician 12/02/21 Cisco Caceres MD [address] [place] [address] 284 [place], [place] [id number] Fellow Gastroenterology 12/09/21 Yung Rodriguez MD [address] [facility] [address] [place], [place] 286495 Cardiovascular Disease 12/25/21 Tatianna Horne, [facility] [address] [place] [address] Pharmacist Pharmacist Pretzel Twisting Machine Operator 02/06/22 Billie Tucker, RN Specialty Track Surfacing Machine Operator Gastroenterology 12/10/22 Paul Sanford MD [address] [place] [address] Gastroenterology 12/25/22 Paul Sanford MD [address] [place] [address] 9[address]32 Referring Physician Gastroenterology 01/14/23 Jt Waters MD [address] [place] [address] 081585 Dermatology 01/14/23 Jt Waters MD [address] [place] [address] 34842 Assigned Surgical Provider 01/17/23 01/28/24 Bhavik Segura PA-C [address] [place] [address] 896765 Physician Programs Manager Gastroenterology 04/28/23 Paul Sanford MD [address] [place] [address] 74858 Assigned Gastroenterology Provider 07/18/23 Favian Mcknight MD [address] [place] [address] Dermatology 12/09/23 Favian Mcknight MD [address] [place] [address] 89281 Assigned Surgical Provider 01/29/24 Tatianna Horne [facility] [address] [place] [address] Assigned MTM Pharmacist 07/08/24 Lyudmila Baltazar, RN Home Infusion Foundation Director 08/29/24 documented as of this encounter
--- OUTSIDE RECORDS SUMMARY | 2024-12-22 04:59 | XMS_ITS | Encounter Summary ---
Author Organization [facility] Address [address] [place] [address] Care Team Providers Care Mica Layer Name Role Phone Sushant Schreiber MD Primary Care Provider [phone] No Ref-Primary, Physician Unavailable [phone] Cisco Caceres MD Unavailable [phone] LIGHT SERVICER SUPERVISOR Unavailable [phone] Yung Rodriguez MD Unavailable Tatianna Horne [facility] Unavailable Tatianna Horne [facility] Unavailable [phone] Tatianna Horne [facility] Unavailable [phone] Billie Tucker RN Unavailable Unavailable Chantale Grande PA-C Unavailable [phone] Paul Sanford MD Unavailable Paul Sanford MD Unavailable Jt Waters MD Unavailable Jt Waters MD Unavailable Bahvik Segura PA-C Unavailable [phone] Paul Sanford MD Unavailable Favian Mcknight MD Unavailable [phone] Favian Mcknight MD Unavailable [phone] Tatianna Horne [facility] Unavailable Lyudmila Baltazar RN Unavailable [...] on file Legal 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 SCRAP HOOKER Gender Identity Not on file Sexual Orientation Not on file COVID-19 Exposure Response Date Recorded In the last month, have you been in contact with someone who was confirmed or suspected to have Coronavirus / COVID-19? No / Unsure 01/08/2022 8:25 AM SCRAP HOOKER documented as of this encounter Plan of Treatment Upcoming Encounters Date Type Department Care Team (Late st Contact Info) Description 01/12/2025 10:00 AM SCRAP HOOKER Office Visit [facility] Gastroenterology Clinic [address] [place] [address] Paul Sanford MD [address] [place] [address] documented as of this encounter Visit Diagnoses Not on filedocumented in this encounter Additional Health Concerns Infection Onset Date Last Indicated Resolved Time COVID-19 02/27/2022 02/27/2022 03/20/2022 11:3 9 PM CDT documented as of this encounter Care Teams Mica Layer Relationship Specialty Start Date End Date Sushant Schreiber MD [facility] [address] [place] [address] PCP - General Family Medicine 12/02/21 No Ref-Primary, Physician 12/02/21 Cisco Caceres MD [address] [place] [address] Fellow Gastroenterology 12/09/[address] LIGHT SERVICER SUPERVISOR [address] [place] [address] Assigned Heart and Vascular Provider 12/15/21 02/13/23 Yung Rodriguez MD [address] [place] [address] Cardiovascular Disease 12/25/21 [facility] [address] [place] [address] Pharmacist Pharmacist Watchguard 02/06/22 [facility] [address] [place] [address] Assigned MTM Pharmacist 04/12/22 [facility] [address] [place] [address] Assigned MTM Pharmacist 08/13/22 Billie Tucker, RN Specialty Vision Rehabilitation Therapist Gastroenterology 12/10/22 Chantale Grande [facility] [address] [place] [address] Physician Shackler Dermatology 12/25/22 01/13/23 Paul Sanford MD [address] [place] [address] Gastroenterology 12/25/22 Paul Sanford MD 500 [place] [address] Referring Physician Gastroenterology 01/14/23 Jt Waters MD [address] [place] [address] Dermatology 01/14/23 Jt Waters MD [address] [place] [address] Assigned Surgical Provider 01/17/23 01/28/24 Bhavik Segura PA-C [address] [place] [address] 931715 Physician Shackler Gastroenterology 04/28/23 Paul Sanford MD [address] [place] [address] Assigned Gastroenterology Provider 07/18/23 Favian Mcknight MD [address] [place] [address]84 Dermatology 12/09/23 Favian Mcknight MD [address] [place] [address]385 Assigned Surgical Provider 01/29/24 Tatianna Horne [facility] [address] [place] [address] Assigned MTM Pharmacist 07/08/24 Lyudmila Baltazar, RN Home Infusion Pipe Fitter Marine 08/29/24 documented as of this encounter
--- OUTSIDE RECORDS SUMMARY | 2024-12-22 04:59 | XMS_ITS | Encounter Summary ---
Author Organization [facility] Address [address] [place] [address] Care Team Providers Care Street Light Servicer Name Role Phone Sushant Schreiber MD Primary Care Provider [phone] No Ref-Primary, Physician Unavailable [phone] Cisco Caceres MD Unavailable [phone] Yung Rodriguez MD Unavailable Tatianna Horne [facility] Unavailable Tatianna Horne [facility] Unavailable [phone] Billie Tucker RN Unavailable Unavailable Paul Sanford MD Unavailable [phone] Paul Sanford MD Unavailable [phone] Jt Waters MD Unavailable Jt Waters MD Unavailable Bhavik Segura PA-C Unavailable [phone] Paul Sanford MD Unavailable [phone] Favian Mcknight MD Unavailable [phone] Favian Mcknight MD Unavailable [phone] Tatianna Horne [facility] Unavailable [phone] Lyudmila Baltazar RN Unavailable Unavailabl e Encounter Details Date Type Department Care Team (Late st Contact Info) Description 03/16/2023 [facility] Medical Advice [address] 5th [place] [phone] Chantell Madera RN Social History Tobacco Use Types Packs/Day [...] on file Legal 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 COMMUNICATIONS SCIENTIST Gender Identity Not on file Sexual Orientation Not on file documented as of this encounter Plan of Treatment Upcoming Encounters Date Type Department Care Team (Late st Contact Info) Description 01/12/2025 10:00 AM COMMUNICATIONS SCIENTIST Office Visit [facility] Gastro[facility]ology Clinic [address]th [place] [phone] Paul Sanford MD [address] [place] [address] 006375 documented as of this encounter Visit Diagnoses Not on filedocumented in this encounter Care Teams Street Light Servicer Relationship Specialty Start Date End Date Sushant Schreiber MD [facility] [address] [place] [address] PCP - General Family Medicine 12/02/21 No Ref-Primary, Physician 12/02/21 Cisco Caceres MD [address] [place] [address] 284 [place], [place] 548725 Fellow Gastroenterology 12/09/21 Yung Rodriguez MD [address] [place] [address] Cardiovascular Disease 12/25/21 [facility] [address] [place] [address] Pharmacist Pharmacist Adventure Guide 02/06/22 Tatianna Horne [facility] [address] [place] [address] Assigned MTM Pharmacist 08/13/22 Billie Tucker, RN Specialty Web Page Designer Gastroenterology 12/10/22 Paul Sanford MD 500 [place] [address] Gastroenterology 12/25/22 Paul Sanford MD 500 [place] [address] Referring Physician Gastroenterology 01/14/23 Jt Waters MD 500 [place] [address] MD Dermatology 01/14/23 Jt Waters MD 500 [place] [address] Assigned Surgical Provider 01/17/23 01/28/24 Bhavik Segura PA-C [address] [place] [address] Physician Bottom Worker Gastroenterology 04/28/23 Paul Sanford MD 500 [place] [address] Assigned Gastroenterology Provider 07/18/23 Favian Mcknight MD 9 [place] [address] Dermatology 12/09/23 Favian Mcknight MD 9 [place] [address] Assigned Surgical Provider 01/29/24 Tatianna Horne [facility] 9 [place] [address] Assigned MTM Pharmacist 07/08/24 Lyudmila Baltazar, RN Home Infusion Fashion Artist 08/29/24 documented as of this encounter
--- OUTSIDE RECORDS SUMMARY | 2024-12-22 04:59 | XMS_ITS | Encounter Summary ---
Author Organization [facility] Address [address] [place] [address] Care Team Providers Care Foundation Director Name Role Phone Sushant Schreiber MD Primary Care Provider [phone] No Ref-Primary, Physician Unavailable [phone] Cisco Caceres MD Unavailable [phone] Yung Rodriguez MD Unavailable Tatianna Horne [facility] Unavailable [phone] Billie Tucker RN Unavailable Unavailable Paul Sanford MD Unavailable [phone] Paul Sanford MD Unavailable [phone] Jt Waters MD Unavailable Bhavik Segura PA-C Unavailable +[phone] Paul Sanford MD Unavailable [phone] Favian Mcknight MD Unavailable [phone] Favian Mcknight MD Unavailable [phone] Tatianna Horne [facility] Unavailable [phone] Lyudmila Baltazar RN Unavailable Unavailabl e Encounter Details Date Type Department Care Team (Late st Contact Info) Description 08/03/2024 [facility] [address] 4th [place] [address] Billie Tucker, RN Social History [...] on file Legal 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 SENIOR RELIABILITY ENGINEER Gender Identity Not on file Sexual Orientation Not on file documented as of this encounter Plan of Treatment Upcoming Encounters Date Type Department Care Team (Late st Contact Info) Description 01/12/2025 10:00 AM SENIOR RELIABILITY ENGINEER Office Visit [facility]ology Clinic [address] [phone] Paul Sanford MD [address] [place] [address] 117345 documented as of this encounter Visit Diagnoses Not on filedocumented in this encounter Care Teams Foundation Director Relationship Specialty Start Date End Date Sushant Schreiber MD [facility] [address] [address] PCP - General Family Medicine 12/02/21 No Ref-Primary, Physician 12/02/21 Cisco Caceres MD [address] [place] [address] 328725 Fellow Gastroenterology 12/09/21 Yung Rodriguez MD [address] [place], [place] 20[address] Cardiovascular Disease 12/25/21 Tatianna Horne, [facility] [address] [place] [address] Pharmacist Pharmacist Medical Case Worker 02/06/22 Billie Tucker, RN Specialty Soap Press Feeder Gastroenterology 12/10/22 Paul Sanford MD [address] [place] [address] Gastroenterology 12/25/22 Paul Sanford MD [address] [place] [address] Referring Physician Gastroenterology 01/14/23 Jt Waters MD [address] [place] [address] Dermatology 01/14/23 Bhavik Segura PA-C [address] [place] [address] Physician Money Order Clerk Gastroenterology 04/28/23 Paul Sanford MD [address] [place] [address] Assigned Gastroenterology Provider 07/18/23 Favian Mcknight MD [address] [place] [address] Dermatology 12/09/23 Favian Mcknight MD [address] [place] [address]148 Assigned Surgical Provider 01/29/24 Tatianna Horne, [facility] [address] [place] [address] Assigned MTM Pharmacist 07/08/24 Lyudmila Baltazar, RN Home Infusion Quill Layer 08/29/24 documented as of this encounter
--- OUTSIDE RECORDS SUMMARY | 2024-12-22 04:59 | XMS_ITS ---
Author Organization [facility] Address [address] [place] [address] Care Team Providers Care Cage Manager Name Role Phone Sushant Schreiber MD Primary Care Provider No Ref-Primary, Physician Unavailable [phone] Cisco Caceres MD Unavailable [phone] Yung Rodriguez MD Unavailable Tatianna Horne [facility] Unavailable Billie Tucker RN Unavailable Unavailable Paul Sanford MD Unavailable [phone] Paul Sanford MD Unavailable [phone] Jt Waters MD Unavailable Bhavik Segura PA-C Unavailable [phone] Paul Sanford MD Unavailable [phone] Favian Mcknight MD Unavailable [phone] Favian Mcknight MD Unavailable [phone] Tatianna Horne [facility] Unavailable [phone] yLudmila Baltazar RN Unavailable Unavailabl e Biologic Status:Enrolled (Active) Start date:07/21/2024 Enrollment date:07/22/2024 Linked medications:Sodium Chloride,inFLIXimab-dyyb (Active) Linked problems:Crohn's disease of both small and large intestine (H) (Active) Related program episode:Home Infusion (Active) Continued Care and Services Coordination
--- OUTSIDE RECORDS SUMMARY | 2024-12-22 04:59 | XMS_ITS | Encounter Summary ---
Author Organization [place] Address [address] [place] [address] Care Team Providers Care Hospitalist Name Role Phone Sushant Schreiber MD Primary Care Provider [phone] No Ref-Primary, Physician Unavailable [phone] Cisco Caceres MD Unavailable [phone] Yung Rodriguez MD Unavailable Tatianna Horne [facility] Unavailable [phone] Tatianna Horne [facility] Unavailable [phone] Billie Tucker RN Unavailable Unavailable Paul Sanford MD Unavailable [phone] Paul Sanford MD Unavailable [phone] Jt Waters MD Unavailable Jt Waters MD Unavailable Bhavik Segura PA-C Unavailable [phone] Paul Sanford MD Unavailable [phone] Favian Mcknight MD Unavailable [phone] Favian Mcknight MD Unavailable [phone] Tatianna Horne [facility] Unavailable [phone] Lyudmila Baltazar RN Unavailable Unavailabl e Encounter Details Date Type Department Care Team (Late st Contact Info) Description 03/19/2023 [facility] Medical Advice [address] [place] [phone] Dari Wiley RN Social History Tobacco Use Types Packs/Day [...] on file Legal 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 BIN CLEANER Gender Identity Not on file Sexual Orientation Not on file documented as of this encounter Plan of Treatment Upcoming Encounters Date Type Department Care Team (Late st Contact Info) Description 01/12/2025 10:00 AM BIN CLEANER Office Visit [facility] Gastroenterology Clinic [address] [place] [phone] Paul Sanford MD [address] [place] [address] 993635 documented as of this encounter Visit Diagnoses Not on filedocumented in this encounter Care Teams Hospitalist Relationship Specialty Start Date End Date Sushant Schreiber MD [facility] [address] [place] [address] PCP - General Family Medicine 12/02/21 No Ref-Primary, Physician 12/02/21 Cisco Caceres MD [address] [place] [address] 284 [place] [address] Fellow Gastroenterology 12/09/21 Yung Rodriguez MD [address] [place] [address] Cardiovascular Disease 12/25/21 Tatianna Horne, [facility] [address] [place] [address] Pharmacist Pharmacist Wrapper Off 02/06/22 [facility] [address] [place] [address] Assigned MTM Pharmacist 08/13/22 Billie Tucker, RN Specialty Overnight Houseperson Gastroenterology 12/10/22 Paul Sanford MD 500 [place] [address] MD Gastroenterology 12/25/22 Paul Sanford MD 500 [place] [address] Referring Physician Gastroenterology 01/14/23 Jt Waters MD 500 [place] [address] MD Dermatology 01/14/23 Jt Waters MD [address] [place] [address] Assigned Surgical Provider 01/17/23 01/28/24 Bhavik Segura PA-C [address] [place] [address] 620985 Physician Customer Support Manager Gastroenterology 04/28/23 Paul Sanford MD [address] [place] [address] Assigned Gastroenterology Provider 07/18/23 Favian Mcknight MD [address] [place] [address] Dermatology 12/09/23 Favian Mcknight MD [address] [place] [address] Assigned Surgical Provider 01/29/24 Tatianna Horne [facility] 9 [place] [address] Assigned MTM Pharmacist 07/08/24 Lyudmila Baltazar, RN Home Infusion Driver Starting Gate 08/29/24 documented as of this encounter
--- OUTSIDE RECORDS SUMMARY | 2024-12-22 04:59 | XMS_ITS | Encounter Summary ---
Author Organization [place] Address [address] [place] [address] Care Team Providers Care Candy Starch Mold Printer Name Role Phone Sushant Schreiber MD Primary Care Provider No Ref-Primary, Physician Unavailable [phone] Cisco Caceres MD Unavailable [phone] Sabiha Hogan APRN, CNP Unavailable [phone] Yung Rodriguez MD Unavailable Tatianna Horne [facility] Unavailable Tatianna Horne [facility] Unavailable [phone] Billie Tucker RN Unavailable Unavailable Chantale Grande PA-C Unavailable [phone] Paul Sanford MD Unavailable [phone] Paul Sanford MD Unavailable [phone] Jt Waters MD Unavailable Jt aWters MD Unavailable Bhavik Segura PA-C Unavailable [phone] Paul Sanford MD Unavailable Favian Mcknight MD Unavailable [phone] Favian Mcknight MD Unavailable [phone] Tatianna Horne [facility] Unavailable Lyudmila Baltazar RN Unavailable Unavailabl e Encounter Details Date Type Department Care Team (Late st Contact Info) Description 01/09/2023 My[facility] Medical Advice [facility] Gastroenterology Clinic [address] [address] Sosa Alexander Social History Tobacco Use Types [...] file Legal 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 POLE PEELER Gender Identity Not on file Sexual Orientation Not on file COVID-19 Exposure Response Date Recorded In the last 10 days, have yo u been in contact with someone who was confirmed or suspected to have Coronavirus/COVID-19? Unable to assess 01/09/2023 1:20 PM POLE PEELER documented as of this encounter Plan of Treatment Upcoming Encounters Date Type Department Care Team (Late st Contact Info) Description 01/12/2025 10:00 AM POLE PEELER Office Visit [facility] Gastroenterology [address] [address] Paul Sanford MD [address] [place] [address] documented as of this encounter Visit Diagnoses Not on filedocumented in this encounter Care Teams Candy Starch Mold Printer Relationship Specialty Start Date End Date Sushant Schreiber MD [facility] [address] [place] [address] PCP - General Family Medicine 12/02/21 No Ref-Primary, Physician 12/02/21 Cisco Caceres MD [address] [place] [address] Fellow Gastroenterology 12/09/21 Sabiha Hogan APRN INGREDIENT SCALER [address] [place], [place] [address] Assigned Heart and Vascular Provider 12/15/21 02/13/23 Yung Rodriguez MD [address] [place] 166725 Cardiovascular Disease 12/25/21 [facility] [address] [place] [address] Pharmacist Pharmacist Electric Motor Controls Assembler 02/06/22 [facility] [address] [place] [address] Assigned MTM Pharmacist 08/13/22 Billie Tucker, JANELL Specialty Hose Mender Gastroenterology 12/10/22 Chantale Grande PA-C [address] [place] [address] Physician Automatic Data Processing Planner Dermatology 12/25/22 01/13/23 Paul Sanford MD 500 [place] [address] Gastroenterology 12/25/22 Paul Sanford MD 500 [place] [address] Referring Physician Gastroenterology 01/14/23 Jt Waters MD 500 [place] [address] Dermatology 01/14/23 Jt Waters MD 500 [place] [address] Assigned Surgical Provider 01/17/23 01/28/24 Bhavik Segura PA-C [address] [place] [address] Physician Automatic Data Processing Planner Gastroenterology 04/28/23 Paul Sanford MD [address] [place] [address] Assigned Gastroenterology Provider 07/18/23 Favian Mcknight MD [address] [place] [address] Dermatology 12/09/23 Favian Mcknight MD [address] [place] [address] Assigned Surgical Provider 01/29/24 Tatianna Horne, [facility] [address] [place] [address] Assigned MTM Pharmacist 07/08/24 Lyudmila Baltazar, JANELL Home Infusion Property Damage Claims Adjustor 08/29/24 documented as of this encounter
--- OUTSIDE RECORDS SUMMARY | 2024-12-22 04:59 | XMS_ITS | Encounter Summary ---
Author Organization [place] Address [address] [place] [address] Care Team Providers Care Predatory Game Hunter Name Role Phone Sushant Schreiber MD Primary Care Provider [phone] No Ref-Primary, Physician Unavailable [phone] Cisco Caceres MD Unavailable [phone] Sabiha Hogan APRN, CNP Unavailable [phone] Yung Rodriguez MD Unavailable Tatianna Horne [facility] Unavailable Tatianna Horne [facility] Unavailable [phone] Billie Tucker RN Unavailable Unavailable Chantale Grande PA-C Unavailable [phone] aPul Sanford MD Unavailable [phone] Paul Sanford MD Unavailable [phone] Jt Waters MD Unavailable Jt Waters MD Unavailable Bhavik Segura PA-C Unavailable [phone] Paul Sanford MD Unavailable [phone] Favian Mcknight MD Unavailable [phone] Favian Mcknight MD Unavailable [phone] Tatianna Horne [facility] Unavailable Lyudmila Baltazar RN Unavailable Unavailabl e Encounter Details Date Type Department Care Team (Late st Contact Info) Description 12/25/2022 [facility] Advice Adult Call Center [address] [place] [phone] Isabelle Morgan Social History Tobacco Use Types [...] on file Legal 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 IMAGERY ANALYST Gender Identity Not on file Sexual Orientation Not on file COVID-19 Exposure Response Date Recorded In the last 10 days, have yo u been in contact with someone who was confirmed or suspected to have Coronavirus/COVID-19? No / Unsure 12/25/2022 7:56 AM IMAGERY ANALYST documented as of this encounter Plan of Treatment Upcoming Encounters Date Type Department Care Team (Late st Contact Info) Description 01/12/2025 10:00 AM IMAGERY ANALYST Office Visit [facility] Gastroenterology Clinic [address] [place] [address] Paul Sanford MD [address] [place] [address] [phone] documented as of this encounter Visit Diagnoses Not on filedocumented in this encounter Care Teams Predatory Game Hunter Relationship Specialty Start Date End Date Sushant Schreiber MD [facility] [address] [place] [address] PCP - General Family Medicine 12/02/21 No Ref-Primary, Physician 12/02/21 Cisco Caceres MD [address] [place] [address] 284 [place] [address] Fellow Gastroenterology 12/09/21 Sabiha Hogan APRN WELT TRIMMING MACHINE OPERATOR [address] [place], [place] 8[address] Assigned Heart and Vascular Provider 12/15/21 02/13/23 Yung Rodriguez MD [address] [place], [place] 5[address] Cardiovascular Disease 12/25/21 [facility] [address] [place] [address] [phone] Pharmacist Pharmacist Technical Buyer 02/06/22 [facility] [address] [place] [address] [phone] Assigned MTM Pharmacist 08/13/22 Billie Tucker, RN Specialty Customer Sales Distributor Gastroenterology 12/10/22 Chantale Grande, PACrispinC [address] [place] [address] Physician Capital Campaign Fundraiser Dermatology 12/25/22 01/13/23 Paul Sanford MD [address] [place] [address] Gastroenterology 12/25/22 Paul Sanford MD [address] [place] [address] Referring Physician Gastroenterology 01/14/23 Jt Waters MD 500 [place] [address] Dermatology 01/14/23 Jt Waters MD [address] [place] [address] Assigned Surgical Provider 01/17/23 01/28/24 Bhavik Segura PACrispinC [address] [place] [address] Physician Capital Campaign Fundraiser Gastroenterology 04/28/23 Paul Sanford MD [address] [place] [address] Assigned Gastroenterology Provider 07/18/23 Favian Mcknight MD [address] [place] [address] Dermatology 12/09/23 Favian Mcknight MD [address] [place] [address] Assigned Surgical Provider 01/29/24 Tatianna Horne [facility] [address] [place] [address] Assigned MTM Pharmacist 07/08/24 Lyudmila Baltazar, RN Home Infusion Medical Photographer 08/29/24 documented as of this encounter
--- OUTSIDE RECORDS SUMMARY | 2024-12-22 04:59 | XMS_ITS | Encounter Summary ---
Author Organization [place] Address [address] [place] [address] Care Team Providers Care Berry Planter Name Role Phone Sushant Schreiber MD Primary Care Provider No Ref-Primary, Physician Unavailable [phone] Cisco Caceres MD Unavailable [phone] Sabiha Hogan APRN FILTRATION PLANT MECHANIC Unavailable [phone] Yung Rodriguez MD Unavailable Tatianna Horne [facility] Unavailable [phone] Tatianna Horne [facility] Unavailable [phone] Tatianna Horne [facility] Unavailable [phone] Billie Tucker RN Unavailable Unavailable Ch[place] PA-C Unavailable [phone] Paul Sanford MD Unavailable Paul Sanford MD Unavailable [phone] Jt Waters MD Unavailable Jt Waters MD Unavailable Bhavik Segura PA-C Unavailable [phone] Paul Sanford MD Unavailable Favian Mcknight MD Unavailable [phone] Favian Mcknight MD Unavailable [phone] Tatianna Horne [facility] Unavailable Lyudmila Baltazar RN Unavailable Unavailabl e Encounter Details Date Type Department Care Team (Late st Contact Info) Description 02/17/2022 [facility] Medical Advice [facility] Gastroenterology [address] [phone] Michelle Enamorado RN Social History Tobacco Use [...] on file 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 Gender Identity Not on file Sexual Orientation [...] st Contact Info) Description 01/12/2025 10:00 AM FINISH REPAIRER Office Visit [facility] Gastroenterology [address] [phone] Paul Sanford MD [address] [place] [address] documented as of this encounter Visit Diagnoses Not on filedocumented in this encounter Additional Health Concerns Infection Onset Date Last Indicated Resolved Time COVID-19 02/27/2022 02/27/2022 03/20/2022 11:3 9 PM CDT documented as of this encounter Care Teams Berry Planter Relationship Specialty Start Date End Date Sushant Schreiber MD [address] [address] PCP - General Family Medicine 12/02/21 No Ref-Primary, Physician 12/02/21 Cisco Caceres MD [address] [place] [address] Fellow Gastroenterology 12/09/21 Sabiha Hogan APRN FILTRATION PLANT MECHANIC [address] [place] [address] Assigned Heart and Vascular Provider 12/15/21 02/13/23 Yung Rodriguez MD [address] [facility] [address] [place] [address] Cardiovascular Disease 12/25/21 [facility] [address] [place] [address] Pharmacist Pharmacist Millwright 02/06/22 [facility] [address] [place] [address] Assigned MTM Pharmacist 04/12/22 [facility] [address] [place] [address] Assigned MTM Pharmacist 08/13/22 Billie Tucker, RN Specialty Early Learning Teacher Gastroenterology 12/10/22 Chantale Grande, MAJO [address] [place] [address] Physician Retail Cashier Dermatology 12/25/22 01/13/23 Paul Sanford MD 500 [place] [address] MD Gastroenterology 12/25/22 Paul Sanford MD 500 [place] [address] Referring Physician Gastroenterology 01/14/23 Jt Waters MD 500 [place] [address] Dermatology 01/14/23 Jt Waters MD 500 [place] [address] Assigned Surgical Provider 01/17/23 01/28/24 Bhavik Segura PA-C [address] [place] [address] 815255 Physician Retail Cashier Gastroenterology 04/28/23 Paul Sanford MD [address] [place] [address] Assigned Gastroenterology Provider 07/18/23 Favian Mcknight MD [address] [place] [address] Dermatology 12/09/23 Favian Mcknight MD [address] [place] [address] Assigned Surgical Provider 01/29/24 Tatianna Horne [facility] [place] [address] Assigned MTM Pharmacist 07/08/24 Lyudmila Baltazar, RN Home Infusion No Experience 08/29/24 documented as of this encounter
--- OUTSIDE RECORDS SUMMARY | 2024-12-22 04:59 | XMS_ITS | Encounter Summary ---
Author Organization [facility] Address [address] [place] [address] Care Team Providers Care Machine Whitener Name Role Phone Sushant Schreiber MD Primary Care Provider [phone] No Ref-Primary, Physician Unavailable [phone] Cisco Caceres MD Unavailable [phone] Yung Rodriguez MD Unavailable Tatianna Horne [facility] Unavailable [phone] Tatianna Horne [facility] Unavailable [phone] Billie Tucker RN Unavailable Unavailable Paul Sanford MD Unavailable [phone] Paul Sanford MD Unavailable [phone] Jt Waters MD Unavailable Jt Waters MD Unavailable Bhavik Segura PA-C Unavailable [phone] Paul Sanford MD Unavailable [phone] Favian Mcknight MD Unavailable [phone] Favian Mcknight MD Unavailable [phone] Tatianna Horne [facility] Unavailable [phone] Lyudmila Baltazar RN Unavailable Unavailabl e Encounter Details Date Type Department Care Team (Late st Contact Info) Description 07/07/2023 [facility] Gastroenterology Clinic [address] [phone] Beatriz Mak Social History Tobacco Use Types Packs/Day Years [...] on file 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 Gender Identity Not on file Sexual Orientation [...] st Contact Info) Description 01/12/2025 10:00 AM YARD ASSOCIATE Office Visit [facility] Gastroenterology Clinic [address] [phone] Paul Sanford MD [address] [place] [address] documented as of this encounter Visit Diagnoses Not on filedocumented in this encounter Care Teams Machine Whitener Relationship Specialty Start Date End Date Sushant Schreiber MD [facility] [address] [place] [address] PCP - General Family Medicine 12/02/21 No Ref-Primary, Physician 12/02/21 Cisco Caceres MD [address] [place] [address] 284 [place] [address] Fellow Gastroenterology 12/09/21 Yung Rodriguez MD [address] [place] [address] Cardiovascular Disease 12/25/21 Tatianna Horne, [facility] [address] [place] [address] Pharmacist Pharmacist Casino Cage Cashier 02/06/22 [facility] [address] [place] [address] Assigned MTM Pharmacist 08/13/22 Billie Tucker, RN Specialty Block Feeder Gastroenterology 12/10/22 Paul Sanford MD [address] [place] [address] 564915 Gastroenterology 12/25/22 Paul Sanford MD [address] [place] [address] 550925 Referring Physician Gastroenterology 01/14/23 Jt Waters MD 500 [place], [place] 6459[address] Dermatology 01/14/23 Jt Waters MD 500 [place] [address] Assigned Surgical Provider 01/17/23 01/28/24 Bhavik Segura PA-C 9 [place] [address] Physician Television Receiver Analyzer Gastroenterology 04/28/23 Paul Sanford MD 500 [place] [address] Assigned Gastroenterology Provider 07/18/23 Favian Mcknight MD [address] [place] [address] MD Dermatology 12/09/23 Favian Mcknight MD [address] [place] [address] Assigned Surgical Provider 01/29/24 Tatianna Horne [facility] [address] [place] [address] Assigned MTM Pharmacist 07/08/24 Lyudmila Baltazar, RN Home Infusion Roof Shingler 08/29/24 documented as of this encounter
--- OUTSIDE RECORDS SUMMARY | 2024-12-22 04:59 | XMS_ITS | Encounter Summary ---
Author Organization [facility] Address [address] [place] [address] Care Team Providers Care Credentialing Manager Name Role Phone Sushant Schreiber MD Primary Care Provider [phone] No Ref-Primary, Physician Unavailable [phone] Cisco Caceres MD Unavailable [phone] Yung Rodriguez MD Unavailable Tatianna Horne [facility] Unavailable [phone] Tatianna Horne [facility] Unavailable [phone] Billie Tucker RN Unavailable Unavailable Paul Sanford MD Unavailable Paul Sanford MD Unavailable [phone] Jt Waters MD Unavailable Jt Waters MD Unavailable Bhavik Segura PA-C Unavailable [phone] Paul Sanford MD Unavailable [phone] Favian Mcknight MD Unavailable [phone] Favian Mcknight MD Unavailable [phone] Tatianna Horne [facility] Unavailable [phone] Lyudmila Baltazar RN Unavailable Unavailabl e Encounter Details Date Type Department Care Team (Late st Contact Info) Description 03/23/2023 [facility] Gastroenterology Clinic [address] [place] [phone] Diony Drummond Social History Tobacco Use Types [...] on file 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 Gender Identity Not on file Sexual Orientation Not on file documented as of this encounter Plan of Treatment Upcoming Encounters Date Type Department Care Team (Late st Contact Info) Description 01/12/2025 10:00 AM BULK DRIVER Office Visit [facility] Gastroenterology Clinic [address] [phone] Paul Sanford MD [address] [place] [address] 541815 documented as of this encounter Visit Diagnoses Not on filedocumented in this encounter Care Teams Credentialing Manager Relationship Specialty Start Date End Date Sushant Schreiber MD [facility] [address] [place] [address] PCP - General Family Medicine 12/02/21 No Ref-Primary, Physician 12/02/21 Cisco Caceres MD [address] [place] [address] 284 [place], [place] 245275 Fellow Gastroenterology 12/09/21 Yung Rodriguez MD [address] [place] [address] Cardiovascular Disease 12/25/21 [facility] [address] [place] [address] Pharmacist Pharmacist Laborer Aquatic Life 02/06/22 Tatianna Horne [facility] [address] [place] [address] Assigned MTM Pharmacist 08/13/22 Billie Tucker, RN Specialty Jewel Bearing Driller Gastroenterology 12/10/22 Paul Sanford MD 500 [place] [address] Gastroenterology 12/25/22 Paul Sanford MD [address] [place] [address] Referring Physician Gastroenterology 01/14/23 Jt Waters MD 500 [place] [address] MD Dermatology 01/14/23 Jt Waters MD [address] [place] [address] Assigned Surgical Provider 01/17/23 01/28/24 Bhavik Segura PA-C [address] [place] [address] Physician Guest History Clerk Gastroenterology 04/28/23 Paul Sanford MD [address] [place] [address] Assigned Gastroenterology Provider 07/18/23 Favian Mcknight MD 9 [place] [address] Dermatology 12/09/23 Favian Mcknight MD 9 [place] [address] Assigned Surgical Provider 01/29/24 Tatianna Horne [facility] 9 [place] [address] Assigned MTM Pharmacist 07/08/24 Lyudmila Baltazar, RN Home Infusion Tractor Trailer Driver 08/29/24 documented as of this encounter
--- OUTSIDE RECORDS SUMMARY | 2024-12-22 04:59 | XMS_ITS | Encounter Summary ---
Author Organization [place] Address [address] [place] [address] Care Team Providers Care Leak Detection Engineer Name Role Phone Sushant Schreiber MD Primary Care Provider [phone] No Ref-Primary, Physician Unavailable [phone] Cisco Caceres MD Unavailable [phone] Yung Rodriguez MD Unavailable Tatianna Horne [facility] Unavailable Tatianna Horne [facility] Unavailable [phone] Billie Tucker RN Unavailable Unavailable Paul Sanford MD Unavailable Paul Sanford MD Unavailable [phone] Jt Waters MD Unavailable Jt Waters MD Unavailable Bhavik Segura PA-C Unavailable [phone] Paul Sanford MD Unavailable [phone] Favian Mcknight MD Unavailable [phone] Favian Mcknight MD Unavailable [phone] Tatianna Horne [facility] Unavailable [phone] Lyudmila Baltazar RN Unavailable Unavailabl e Encounter Details Date Type Department Care Team (Late st Contact Info) Description 07/07/2023 [facility] Gastroenterology Clinic [address] [phone] Beatriz Mak Social History Tobacco Use Types [...] on file 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 Gender Identity Not on file Sexual Orientation [...] st Contact Info) Description 01/12/2025 10:00 AM FLASH RANGING CREWMEMBER Office Visit [facility] Gastroenterology Clinic [address] [phone] Paul Sanford MD [address] [place] [address] documented as of this encounter Visit Diagnoses Not on filedocumented in this encounter Care Teams Leak Detection Engineer Relationship Specialty Start Date End Date Sushant Schreiber MD [facility] [address] [place] [address] PCP - General Family Medicine 12/02/21 No Ref-Primary, Physician 12/02/21 Cisco Caceres MD [address] [place] [address] 284 [place] [address] Fellow Gastroenterology 12/09/21 Yung Rodriguez MD [address] [place] [address] Cardiovascular Disease 12/25/21 Tatianna Horne, [facility] [address] [place] [address] Pharmacist Pharmacist Driver Recruiter 02/06/22 [facility] [address] [place] [address] Assigned MTM Pharmacist 08/13/22 Billie Tucker, RN Specialty Fabric And Textile Factory Worker Gastroenterology 12/10/22 Paul Sanford MD [address] [place] [address] 320575 Gastroenterology 12/25/22 Paul Sanford MD [address] [place] [address] 414305 Referring Physician Gastroenterology 01/14/23 Jt Waters MD 500 [place], [place] 424[address] Dermatology 01/14/23 Jt Waters MD [address] [place] [address] Assigned Surgical Provider 01/17/23 01/28/24 Bhavik Segura PA-C [address] [place] [address] Physician Silica Dry Press Helper Gastroenterology 04/28/23 Paul Sanford MD 500 [place] [address] Assigned Gastroenterology Provider 07/18/23 Favian Mcknight MD [address] [place] [address] MD Dermatology 12/09/23 Favian Mcknight MD [address] [place] [address] Assigned Surgical Provider 01/29/24 Tatianna Horne [facility] [address] [place] [address] Assigned MTM Pharmacist 07/08/24 Lyudmila Baltazar, RN Home Infusion District Manager In Training 08/29/24 documented as of this encounter
--- OUTSIDE RECORDS SUMMARY | 2024-12-22 04:59 | XMS_ITS | Encounter Summary ---
Author Organization [place] Address [address] [place] [address] Care Team Providers Care Train Caller Name Role Phone Sushant Schreiber MD Primary Care Provider No Ref-Primary, Physician Unavailable [phone] Cisco Caceres MD Unavailable [phone] Yung Rodriguez MD Unavailable Tatianna Horne [facility] Unavailable [phone] Billie Tucker RN Unavailable Unavailable Paul Sanford MD Unavailable [phone] Paul Sanford MD Unavailable [phone] Jt Waters MD Unavailable Bhavik Segura PA-C Unavailable [phone] Paul Sanford MD Unavailable [phone] Favian Mcknight MD Unavailable [phone] Favian Mcknight MD Unavailable [phone] Tatianna Horne [facility] Unavailable [phone] Lyudmila Baltazar RN Unavailable Unavailabl e Encounter Details Date Type Department Care Team (Late st Contact Info) Description 08/16/2024 [facility] Gastroenterology Clinic [address] 4[address] [place] [address] Shalini Archer MA Social History Tobacco Use Types Packs/Day [...] on file Legal 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 JAWBONE BREAKER Gender Identity Not on file Sexual Orientation Not on file documented as of this encounter Plan of Treatment Upcoming Encounters Date Type Department Care Team (Late st Contact Info) Description 01/12/2025 10:00 AM JAWBONE BREAKER Office Visit [facility] Gastroenterology Clinic [address] [phone] Paul Sanford MD [address] [place] [address] [phone] documented as of this encounter Visit Diagnoses Not on filedocumented in this encounter Care Teams Train Caller Relationship Specialty Start Date End Date Sushant Schreiber MD [facility] [address] [address] PCP - General Family Medicine 12/02/21 No Ref-Primary, Physician 12/02/21 Cisco Caceres MD [address] [place] [address] 912375 Fellow Gastroenterology 12/09/21 Yung Rodriguez MD [address] [place], [place] 8[address] Cardiovascular Disease 12/25/21 Tatianna Horne, [facility] [address] [place] [address] Pharmacist Pharmacist Lab Tech 02/06/22 Billie Tucker, RN Specialty Cyanide Pot Tender Gastroenterology 12/10/22 Paul Sanford MD [address] [place] [address] Gastroenterology 12/25/22 Paul Sanford MD [address] [place] [address] Referring Physician Gastroenterology 01/14/23 Jt Waters MD [address] [place] [address] Dermatology 01/14/23 Bhavik Segura PA-C [address] [place] [address] Physician Creative Art Director Gastroenterology 04/28/23 Paul Sanford MD [address] [place] [address] Assigned Gastroenterology Provider 07/18/23 Favian Mcknight MD [address] [place] [address] Dermatology 12/09/23 Favian Mcknight MD [address] [place] [address] Assigned Surgical Provider 01/29/24 Tatianna Horne, [facility] [address] [place] [address] Assigned MTM Pharmacist 07/08/24 Lyudmila Baltazar, RN Home Infusion It Risk And Assurance Manager 08/29/24 documented as of this encounter
--- OUTSIDE RECORDS SUMMARY | 2024-12-22 04:59 | XMS_ITS | Encounter Summary ---
Author Organization [place] Address [address] [place] [address] Care Team Providers Care Housekeeping Assistant Name Role Phone Sushant Schreiber MD Primary Care Provider [phone] No Ref-Primary, Physician Unavailable [phone] Cisco Caceres MD Unavailable [phone] Yung Rodriguez MD Unavailable Tatianna Horne [facility] Unavailable Tatianna Horne [facility] Unavailable [phone] Billie Tucker RN Unavailable Unavailable Paul Sanford MD Unavailable Paul Sanford MD Unavailable [phone] Jt Waters MD Unavailable Jt Waters MD Unavailable Bhavik Segura PA-C Unavailable [phone] Paul Sanford MD Unavailable [phone] Favian Mcknight MD Unavailable [phone] Favian Mcknight MD Unavailable [phone] Tatianna Horne [facility] Unavailable [phone] Lyudmila Baltazar RN Unavailable Unavailabl e Encounter Details Date Type Department Care Team (Late st Contact Info) Description 06/01/2023 [facility] Gastro[facility]ology Clinic [address] [phone] Diony Drummond Social History Tobacco Use Types [...] on file Legal 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 TEXTILE EXAMINER Gender Identity Not on file Sexual Orientation [...] st Contact Info) Description 01/12/2025 10:00 AM TEXTILE EXAMINER Office Visit [facility] G[facility]enterology Clinic [address] [phone] Paul Sanford MD [address] [place] [address] documented as of this encounter Visit Diagnoses Not on filedocumented in this encounter Care Teams Housekeeping Assistant Relationship Specialty Start Date End Date Sushant Schreiber MD [facility] [address] [place] [address] PCP - General Family Medicine 12/02/21 No Ref-Primary, Physician 12/02/21 Cisco Caceres MD [address] [place] [address] [address] [place] [address] Fellow Gastroenterology 12/09/21 Yung Rodriguez MD [address] [place] [address] Cardiovascular Disease 12/25/21 [facility] [address] [place] [address] Pharmacist Pharmacist Wireless Technician 02/06/22 [facility] [address] [place] [address] Assigned MTM Pharmacist 08/13/22 Billie Tucker, JANELL Specialty Bookkeeping Clerks Supervisor Gastroenterology 12/10/22 Paul Sanford MD [address] [place] [address] Gastroenterology 12/25/22 Paul Sanford MD [address] [place], [place] 7948[address] Referring Physician Gastroenterology 01/14/23 Jt Waters MD [address] [place], [place] 123665 Dermatology 01/14/23 Jt Waters MD [address] [place] [address] Assigned Surgical Provider 01/17/23 01/28/24 Bhavik Segura PA-C [address] [place] [address] Physician Loading Unit Operator Crimping Gastroenterology 04/28/23 Paul Sanford MD [address] [place] [address] Assigned Gastroenterology Provider 07/18/23 Favian Mcknight MD [address] [place] [address] MD Dermatology 12/09/23 Favian Mcknight MD [address] [place] [address] Assigned Surgical Provider 01/29/24 Tatianna Horne [facility] [address] [place] [address] Assigned MTM Pharmacist 07/08/24 Lyudmila Baltazar, RN Home Infusion Blue Line Operator 08/29/24 documented as of this encounter
--- OUTSIDE RECORDS SUMMARY | 2024-12-22 04:59 | XMS_ITS | Encounter Summary ---
Author Organization [place] Address [address] [place] [address] Care Team Providers Care Line Therapist Name Role Phone Sushant Schreiber MD Primary Care Provider [phone] No Ref-Primary, Physician Unavailable [phone] Cisco Caceres MD Unavailable [phone] Sabiha Hogan APRN EPILEPSY PHYSICIAN Unavailable [phone] Yung Rodriguez MD Unavailable Tatianna Horne [facility] Unavailable Tatianna Horne [facility] Unavailable [phone] Tatianna Horne [facility] Unavailable [phone] Billie Tucker RN Unavailable Unavailable Chantale Grande PA-C Unavailable [phone] Paul Sanford MD Unavailable Paul Sanford MD Unavailable [phone] Jt Waters MD Unavailable Jt Waters MD Unavailable Bhavik Segura PA-C Unavailable [phone] Paul Sanford MD Unavailable [phone] Favian Mcknight MD Unavailable [phone] Favian Mcknight MD Unavailable [phone] Tatianna Horne [facility] Unavailable Lyudmila Baltazar RN Unavailable Unavailabl e Encounter Details Date Type Department Care Team (Late Contact Info) Description 01/29/2022 MyC Medical Advice [facility] Gastroenterology Clinic [address] [phone] Michelle Enamorado RN Social History [...] on file 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 Gender Identity Not on file Sexual [...] (Late Contact Info) Description 01/12/2025 10:00 AM DOCUMENT 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 Office Visit [facility] Gastro[facility]ology Clinic [address] [address] Paul Sanford MD [address] [place] [address] documented as of this encounter Visit Diagnoses Not on filedocumented in this encounter Additional Health Concerns Infection Onset Date Last Indicated Resolved Time COVID-19 02/27/2022 02/27/2022 03/20/2022 11:3 9 PM CDT documented as of this encounter Care Teams Line Therapist Relationship Specialty Start Date End Date Sushant Schreiber MD [facility] [address] [address] PCP - General Family Medicine 12/02/21 No Ref-Primary, Physician 12/02/21 Cisco Caceres MD [address] [place] [address] 600825 Fellow Gastroenterology 12/09/21 Sabiha Hogan APRN EPILEPSY PHYSICIAN [address] [place] [address] Assigned Heart and Vascular Provider 12/15/21 02/13/23 Ynug Rodriguez MD [address] [place], [place] 8[address] Cardiovascular Disease 12/25/21 Tatianna Horne [facility] [address] [place] [address] 900655 Pharmacist Pharmacist Valuation Manager 02/06/22 Tatianna Horne [facility] [address] [place] [address] 916085 Assigned MTM Pharmacist 04/12/22 Tatianna Horne [facility] [address] [place] [address] 754675 Assigned MTM Pharmacist 08/13/22 Billie Tucker, RN Specialty Insurance Business Analyst Gastroenterology 12/10/22 Chantale Grande PA-C [address] [place] [address] Physician Subscription Clerk Dermatology 12/25/22 01/13/23 Paul Sanford MD 500 [place] [address] MD Gastroenterology 12/25/22 Paul Sanford MD [address] [place] [address] Referring Physician Gastroenterology 01/14/23 Jt Waters MD 500 [place] [address] MD Dermatology 01/14/23 Jt Waters MD [address] [place] [address]362 Assigned Surgical Provider 01/17/23 01/28/24 Bhavik Segura PA-C [address] [place] [address] Physician Subscription Clerk Gastroenterology 04/28/23 Paul Sanford MD [address] [place] [address] Assigned Gastroenterology Provider 07/18/23 Favian Mcknight MD [address] [place] [address] Dermatology 12/09/23 Favian Mcknight MD [address] [place], [place] 412255 Assigned Surgical Provider 01/29/24 Tatianna Horne [facility] [address] [place], [place] 341575 Assigned MTM Pharmacist 07/08/24 Lyudmila Baltazar, RN Home Infusion Pedorthist 08/29/24 documented as of this encounter
--- OUTSIDE RECORDS SUMMARY | 2024-12-22 04:59 | XMS_ITS | Encounter Summary ---
Author Organization [place] Address [address] [place] [address] Care Team Providers Care Combatant Diver Qualified Name Role Phone Sushant Schreiber MD Primary Care Provider No Ref-Primary, Physician Unavailable [phone] Cisco Caceres MD Unavailable [phone] Sabiha Hogan APRN BLOCKMAN Unavailable [phone] Yung Rodriguez MD Unavailable Tatianna Horne [facility] Unavailable Tatianna Horne [facility] Unavailable [phone] Tatianna Horne [facility] Unavailable [phone] Billie Tucker RN Unavailable Unavailable Chantale Grande PA-C Unavailable [phone] Paul Sanford MD Unavailable Paul Sanford MD Unavailable Jt Waters MD Unavailable Jt Waters MD Unavailable Bhavik Segura PA-C Unavailable [phone] Paul Sanford MD Unavailable Favian Mcknight MD Unavailable [phone] Favian Mcknight MD Unavailable [phone] Tatianna Horne [facility] Unavailable Lyudmila Baltazar RN Unavailable Unavailabl e Encounter Details Date Type Department Care Team (Late st Contact Info) Description 01/28/2022 MyC Medical Advice [facility] Gastroenterology [address] [phone] Michelle Enamorado RN Social History Tobacco Use [...] on file 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 Gender Identity Not on file Sexual Orientation [...] st Contact Info) Description 01/12/2025 10:00 AM MODULAR HOME CREW MEMBER Office Visit [facility] Gastroenterology [address] [phone] Paul Sanford MD [address] [place] [address] documented as of this encounter Visit Diagnoses Not on filedocumented in this encounter Additional Health Concerns Infection Onset Date Last Indicated Resolved Time COVID-19 02/27/2022 02/27/2022 03/20/2022 11:3 9 PM CDT documented as of this encounter Care Teams Combatant Diver Qualified Relationship Specialty Start Date End Date Sushant Schreiber MD [address] [address] PCP - General Family Medicine 12/02/21 No Ref-Primary, Physician 12/02/21 Cisco Caceres MD [address] [place] [address] Fellow Gastroenterology 12/09/21 Sabiha Hogan APRN BLOCKMAN [address] [place] [address] Assigned Heart and Vascular Provider 12/15/21 02/13/23 Yung Rodriguez MD [address] [facility] [address] [place] [address] Cardiovascular Disease 12/25/21 [facility] [address] [place] [address] Pharmacist Pharmacist Tab Machine Operator 02/06/22 [facility] [address] [place] [address] Assigned MTM Pharmacist 04/12/22 [facility] [address] [place] [address] Assigned MTM Pharmacist 08/13/22 Billie Tucker, RN Specialty Die Hardener Gastroenterology 12/10/22 Chantale Grande, MAJO [address] [place] [address] Physician Marble Installation Helper Dermatology 12/25/22 01/13/23 Paul Sanford MD 500 [place] [address] MD Gastroenterology 12/25/22 Paul Sanford MD [address] [place] [address] Referring Physician Gastroenterology 01/14/23 Jt Waters MD 500 [place] [address] Dermatology 01/14/23 Jt Waters MD [address] [place] [address] Assigned Surgical Provider 01/17/23 01/28/24 Bhavik Segura PA-C [address] [place] [address] 261795 Physician Marble Installation Helper Gastroenterology 04/28/23 Paul Sanford MD [address] [place] [address] Assigned Gastroenterology Provider 07/18/23 Favian Mcknight MD [address] [place] [address] Dermatology 12/09/23 Favian Mcknight MD [address] [place] [address] Assigned Surgical Provider 01/29/24 Tatianna Horne [facility] [address] Assigned MTM Pharmacist 07/08/24 Lyudmila Baltazar, RN Home Infusion Shark Biologist 08/29/24 documented as of this encounter
--- OUTSIDE RECORDS SUMMARY | 2024-12-22 04:59 | XMS_ITS ---
Author Organization [place] Address [address] [place] [address] Care Team Providers Care Medical Economics Consultant Name Role Phone Sushant Schreiber MD Primary Care Provider [phone] No Ref-Primary, Physician Unavailable [phone] Cisco Caceres MD Unavailable [phone] Yung Rodriguez MD Unavailable Tatianna Horne [facility] Unavailable [phone] Billie Tucker RN Unavailable Unavailable Paul Sanford MD Unavailable [phone] Paul Sanford MD Unavailable [phone] Jt Waters MD Unavailable Bhavik Segura PA-C Unavailable [phone] Paul Sanford MD Unavailable [phone] Favian Mcknight MD Unavailable [phone] Favian Mcknight MD Unavailable [phone] Tatianna Horne [facility] Unavailable [phone] Lyudmila Baltazar RN Unavailable Unavailabl e Home Infusion Status:Enrolled (Active) Start date:07/21/2024 Enrollment date:07/22/2024 Related service episodes:Antiemetic (Active), Biologic (Active), Hydration Therapy (Active), Pain Management (Active) Case Team Name Relationship Phone Lyudmila Baltazar RN Home Infusion [employer]( Responsible Staff) Continued Care and Services Coordination This section includes services coordinated for Home Infusion. [facility] Nursing Agency Name Services Phone [facility]
--- OUTSIDE RECORDS SUMMARY | 2024-12-22 04:59 | XMS_ITS | Encounter Summary ---
Author Organization [place] Address [address] [place] [address] Care Team Providers Care Stain Remover Name Role Phone Sushant Schreiber MD Primary Care Provider [phone] No Ref-Primary, Physician Unavailable [phone] Cisco Caceres MD Unavailable [phone] Yung Rodriguez MD Unavailable Tatianna Horne [facility] Unavailable Tatianna Horne [facility] Unavailable [phone] Billie Tucker RN Unavailable Unavailable Paul Sanford MD Unavailable Paul Sanford MD Unavailable [phone] Jt Waters MD Unavailable Jt Waters MD Unavailable Bhavik Segura PA-C Unavailable [phone] Paul Sanford MD Unavailable [phone] Favian Mcknight MD Unavailable [phone] Favian Mcknight MD Unavailable [phone] Tatianna Horne [facility] Unavailable [phone] Lyudmila Baltazar RN Unavailable Unavailabl e Encounter Details Date Type Department Care Team (Late st Contact Info) Description 05/22/2023 [facility] Gastroenterology Clinic [address] [phone] Billie Tucker RN Social History Tobacco Use [...] on file 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 Gender Identity Not on file Sexual Orientation Not on file documented as of this encounter Plan of Treatment Upcoming Encounters Date Type Department Care Team (Late st Contact Info) Description 01/12/2025 10:00 AM WEB CONTENT EXECUTIVE Office Visit [facility] Gastroenterology Clinic [address] [phone] Paul Sanford MD [address] [place] [address] 403125 documented as of this encounter Visit Diagnoses Not on filedocumented in this encounter Care Teams Stain Remover Relationship Specialty Start Date End Date Sushant Schreiber MD [facility] [address] [address] PCP - General Family Medicine 12/02/21 No Ref-Primary, Physician 12/02/21 Cisco Caceres MD [address] [place] [address] [address] [place] [address] Fellow Gastroenterology 12/09/21 Yung Rodriguez MD [address] [place] [address] Cardiovascular Disease 12/25/21 Tatianna Horne, [facility] [address] [place] [address] Pharmacist Pharmacist Charcoal Unloader 02/06/22 Tatianna Horne, [facility] [address] [place] [address] Assigned MTM Pharmacist 08/13/22 Billie Tucker, RN Specialty Jumpbasting Canvas Baster Gastroenterology 12/10/22 Paul Sanford MD 500 [place] [address] MD Gastroenterology 12/25/22 Paul Sanford MD [address] [place] [address] Referring Physician Gastroenterology 01/14/23 Jt Waters MD 500 [place] [address] MD Dermatology 01/14/23 Jt Waters MD [address] [place] [address] Assigned Surgical Provider 01/17/23 01/28/24 Bhavik Segura PA-C [address] [place] [address] Physician Briquetter Operator Gastroenterology 04/28/23 Paul Sanford MD 500 [place] [address] Assigned Gastroenterology Provider 07/18/23 Favian Mcknight MD [address] [place] [address] Dermatology 12/09/23 Favian Mcknight MD [address] [place] [address] Assigned Surgical Provider 01/29/24 Tatianna Horne [facility] [address] [place] [address] Assigned MTM Pharmacist 07/08/24 Lyudmila Baltazar, RN Home Infusion Sale Professional Digital Marketing 08/29/24 documented as of this encounter
--- OUTSIDE RECORDS SUMMARY | 2024-12-22 04:59 | XMS_ITS | Encounter Summary ---
Author Organization [place] Address [address] [place] [address] Care Team Providers Care Drafter Marine Name Role Phone Sushant Schreiber MD Primary Care Provider [phone] No Ref-Primary, Physician Unavailable [phone] Cisco Caceres MD Unavailable [phone] Sabiha Hogan APRN GAS REFRIGERATOR SERVICER Unavailable [phone] Yung Rodriguez MD Unavailable Tatianna Horne [facility] Unavailable Tatianna Horne [facility] Unavailable [phone] Tatianna Horne [facility] Unavailable [phone] Billie Tucker RN Unavailable Unavailable Chantale Grande PA-C Unavailable [phone] Paul Sanford MD Unavailable Paul Sanford MD Unavailable [phone] Jt Waters MD Unavailable Jt Waters MD Unavailable Bhavik Segura PA-C Unavailable [phone] Paul Sanford MD Unavailable Favian Mcknight MD Unavailable [phone] Favian Mcknight MD Unavailable [phone] Tatianna Horne [facility] Unavailable [phone] Lyudmila Baltazar RN Unavailable Unavailabl e Encounter Details Date Type Department Care Team (Late st Contact Info) Description 12/03/2021 External Order Results [facility] [address] [place] [address] Outside, Provider Social History Tobacco Use Types Packs/Day Years Used Date Smoking Tobacco: Every Day Cigarettes Alcohol Use Standard Drinks/Week Comments Yes 0 (1 standard drink = 0.6 oz pur e alcohol) occ Sex and Gender Information Value Date Recorded Sex Assigned at Not on file 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 No / Unsure 12/02/2021 4:20 PM FIBERGLASS ROLLER documented as of this encounter Plan of Treatment Upcoming Encounters Date Type Department Care Team (Late st Contact Info) Description 01/12/2025 10:00 AM FIBERGLASS ROLLER Office Visit [facility] Gastroenterology Clinic [address] [place] [address] Paul Sanford MD [address] [place] [address] documented as of this encounter Visit Diagnoses Not on filedocumented in this encounter Additional Health Concerns Infection Onset Date Last Indicated Resolved Time COVID-19 02/27/2022 02/27/2022 03/20/2022 11:3 9 PM CDT documented as of this encounter Care Teams Drafter Marine Relationship Specialty Start Date End Date Sushant Schreiber MD [facility] [address] [address] PCP - General Family Medicine 12/02/21 No Ref-Primary, Physician 12/02/21 Cisco Caceres MD [address] [facility] [address] [place] [address] Fellow Gastroenterology 12/09/21 Sabiha Hogan APRN GAS REFRIGERATOR SERVICER [address] [place] [address] Assigned Heart and Vascular Provider 12/15/21 02/13/23 Yung Rodriguez MD [address] [place] [address] Cardiovascular Disease 12/25/21 [facility] [address] [place] [address] Pharmacist Pharmacist Doll Eye Setter 02/06/22 [facility] [address] [place] [address] Assigned MTM Pharmacist 04/12/22 [facility] [address] [place] [address] Assigned MTM Pharmacist 08/13/22 Billie Tucker, JANELL Specialty Restaurant Inspector Gastroenterology 12/10/22 Chantale Grande [facility] [address] [place] [address] Physician Supervisor Volunteer Services Dermatology 12/25/22 01/13/23 Paul Sanford MD [address] [place] [address] Gastroenterology 12/25/22 Paul Sanford MD [address] [place] [address] Referring Physician Gastroenterology 01/14/23 Jt Waters MD 500 [place] [address] Dermatology 01/14/23 Jt Waters MD [address] [place] [address] Assigned Surgical Provider 01/17/23 01/28/24 Bhavik Segura PA-C [address] [place] [address] 832585 Physician Supervisor Volunteer Services Gastroenterology 04/28/23 Paul Sanford MD [address] [place] [address] Assigned Gastroenterology Provider 07/18/23 Favian Mcknight MD [address] [place] [address] Dermatology 12/09/23 Favian Mcknight MD [address] [place] [address] Assigned Surgical Provider 01/29/24 Tatianna Horne [facility] [address] [place] [address] Assigned MTM Pharmacist 07/08/24 Lyudmila Baltazar, RN Home Infusion Automatic Coin Machine Mechanic 08/29/24 documented as of this encounter
--- OUTSIDE RECORDS SUMMARY | 2024-12-22 05:00 | XMS_ITS | Encounter Summary ---
Author Organization [place] Address [address] [place] [address] Care Team Providers Care Water Meter Installer Name Role Phone Sushant Schreiber MD Primary Care Provider [phone] No Ref-Primary, Physician Unavailable [phone] Cisco Caceres MD Unavailable [phone] Yung Rodriguez MD Unavailable Tatianna Horne [facility] Unavailable [phone] Billie Tucker RN Unavailable Unavailable Paul Sanford MD Unavailable Paul Sanford MD Unavailable [phone] Jt Waters MD Unavailable Bhavik Segura PA-C Unavailable [phone] Paul Sanford MD Unavailable [phone] Favian Mcknight MD Unavailable [phone] Favian Mcknight MD Unavailable [phone] Tatianna Horne [facility] Unavailable [phone] Lyudmila Baltazar RN Unavailable Unavailabl e Reason for Referral * Med Therapy Management (Routine: Next available opening) - Pending Review Specialty Diagnoses / Procedures Referred By Contjohana t Referred To Contact Pharmacist Diagnoses Crohn's disease of both small and large intestine with other complication (H) Paul Sanford MD [address] [place] [address] Phone: tel: fax: Referral ID Status Reason Start Date Expiration Date V isits Requested Visits Authorized [id number] Pending Review 06/13/2024 06/13/2025 1 1 Question Answer Type of MTM: Specialty Specialty: GI Med Course of Action: Other Reason for Referral: medicaiton maintenance Additional Information: already scheduled Comments [facility] Medication Therapy Management department will contact [...] prescription and non-prescription medications (such as vitamins, zuzl-qek-rvydzld medications, and herbals) or a detailed medication list to your appointment. If you have a glucose meter or other home monitoring information, please also bring this to your appointment (i.e. blood glucose log, blood pressure log, pain log, etc.). 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 Gender Identity Not on file Sexual Orientation Not on file documented as of this encounter Plan of Treatment Upcoming Encounters Date Type Department Care Team (Late st Contact Info) Description 01/12/2025 10:00 AM EMAIL PRODUCER Office Visit [facility] [place] [address] [facility] [address] [place] [phone] Paul Sanford MD [address] [place] [address] Scheduled Referrals Name Type Priority Associated Diagnoses Orde r Schedule Med Therapy Management Referral Referral Routine: Next available opening Crohn's disease of both small and large intestine with other complication (H) Ordered: 06/13/2024 documented as of this encounter Visit Diagnoses Diagnosis Crohn's disease of both small and large intestine with other complication (H)- Primary documented in this encounter Care Teams Water Meter Installer Relationship Specialty Start Date End Date Sushant Schreiber MD [facility] - [address] [address] PCP - General Family Medicine 12/02/21 No Ref-Primary, Physician 12/02/21 Cisco Caceres MD [address] [place] [address] Fellow Gastroenterology 12/09/21 Yung Rodriguez MD [address] [facility] [address] [place] [address] Cardiovascular Disease 12/25/21 Tatianna Horne, [facility] [address] [place] [address] Pharmacist Pharmacist Illustrator Set 02/06/22 Billie Tucker, JANELL Specialty Mill Recorder Gastroenterology 12/10/22 Paul Sanford MD [address] [place] [address] Gastroenterology 12/25/22 Paul Sanford MD [address] [place] [address] Referring Physician Gastroenterology 01/14/23 Jt Waters MD [address] [place] [address] Dermatology 01/14/23 Bhavik Segura PA-C [address] [place] [address] Physician Mat Inspector Gastroenterology 04/28/23 Paul Sanford MD [address] [place] [address] Assigned Gastroenterology Provider 07/18/23 Favian Mcknight MD [address] [place] [address] Dermatology 12/09/23 Favian Mcknight MD [address] [place] [address] Assigned Surgical Provider 01/29/24 Tatianna Horne [facility] [address] [place] [address] Assigned MTM Pharmacist 07/08/24 Lyudmila Baltazar, RN Home Infusion Demurrage Clerk 08/29/24 documented as of this encounter
--- OUTSIDE RECORDS SUMMARY | 2024-12-22 05:00 | XMS_ITS | Encounter Summary ---
Author Organization [place] Address [address] [place] [address] Care Team Providers Care Line Painting Machine Operator Name Role Phone Sushant Schreiber MD Primary Care Provider No Ref-Primary, Physician Unavailable [phone] Cisco Caceres MD Unavailable [phone] Sabiha Hogan APRN, CNP Unavailable [phone] Yung Rodriguez MD Unavailable Tatianna Horne [facility] Unavailable Tatianna Horne [facility] Unavailable [phone] Billie Tucker RN Unavailable Unavailable [place] PA-C Unavailable [phone] Paul Sanford MD Unavailable [phone] Paul Sanford MD Unavailable [phone] Jt Waters MD Unavailable Jt Waters MD Unavailable Bhavik Segura PA-C Unavailable [phone] Paul Sanford MD Unavailable Favian Mcknight MD Unavailable [phone] Favian Mcknight MD Unavailable [phone] Tatianna Horne [facility] Unavailable Lyudmila Baltazar RN Unavailable Unavailabl e Encounter Details Date Type Department Care Team (Late st Contact Info) Description 01/09/2023 MyC Medical Advice [facility] [address] [address] Sosa Alexander Social History Tobacco [...] on file 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 Unable to assess 01/09/2023 1:20 PM FARM CREW MEMBER documented as of this encounter Plan of Treatment Upcoming Encounters Date Type Department Care Team (Late st Contact Info) Description 01/12/2025 10:00 AM FARM CREW MEMBER Office Visit [facility] Gastroenterology [address] [address] Paul Sanford MD [address] [place] [address] documented as of this encounter Visit Diagnoses Not on filedocumented in this encounter Care Teams Line Painting Machine Operator Relationship Specialty Start Date End Date Sushant Schreiber MD [facility] [address] [place] [address] PCP - General Family Medicine 12/02/21 No Ref-Primary, Physician 12/02/21 Cisco Caceres MD [address] [place] [address] Fellow Gastroenterology 12/09/21 Sabiha Hogan APRN [facility] [address] [place], [place] [address] Assigned Heart and Vascular Provider 12/15/21 02/13/23 Yung Rodriguez MD [address] [place] [address] Cardiovascular Disease 12/25/21 [facility] [address] [place] [address] Pharmacist Pharmacist Voip Engineer 02/06/22 [facility] [address] [place] [address] Assigned MTM Pharmacist 08/13/22 Billie Tucker, JANELL Specialty Central Processing Technician Gastroenterology 12/10/22 [place] PA-C [address] [place] [address] Physician Mosquito Sprayer Dermatology 12/25/22 01/13/23 Paul Sanford MD [address] [place] [address] Gastroenterology 12/25/22 Paul Sanford MD [address] [place] [address] Referring Physician Gastroenterology 01/14/23 Jt Waters MD [address] [place] [address] Dermatology 01/14/23 Jt Waters MD [address] [place] [address] Assigned Surgical Provider 01/17/23 01/28/24 Bhavik Segura PA-C [address] [place] [address] Physician Mosquito Sprayer Gastroenterology 04/28/23 Paul Sanford MD [address] [place] [address] Assigned Gastroenterology Provider 07/18/23 Favian Mcknight MD [address] [place] [address] Dermatology 12/09/23 Favian Mcknight MD [address] [place] [address] Assigned Surgical Provider 01/29/24 Tatianna Horne, [facility] [address] [place] [address] Assigned MTM Pharmacist 07/08/24 Lyudmila Baltazar, JANELL Home Infusion Truck Rental Clerk 08/29/24 documented as of this encounter
--- NOTE | 2024-12-22 05:14 | ED.GENADULT ---
HPI - General Adult General Chief complaint: Extremity Pain/Injury, Lower Stated complaint: injured left knee Time Seen by Provider: 12/22/24 05:09 Source: patient Mode of arrival: ambulatory Limitations: no limitations History of Present Illness HPI narrative: 34-year-old male presents the emergency department 7 hours after any injury in the wee hours. Reports that he was skiing in the evening, ski caught causing in inversion-type knee injury, reports that he felt a pop. Prior history of cartilage injury 3-4 years ago. Denies prior surgery. No other areas of injury. Was able to bear weight and walk but awoke at 1:00 a.m. with pain. Pain is in the medial joint line of the left knee, no bruising or deformity noted. Worse with movement and ambulation. Pain bothersome enough that he could not fall back asleep, therefore he comes to emergency department. He drove himself here without difficulty and did walk into the emergency room. Denies intoxication or illicit substances. No anticoagulant use. No recent illness. Past medical history notable for Crohn's disease, immunosuppressed, reports meds are accurate. Allergy to Vicodin which causes vomiting. Nonsmoker. ROS notable for the musculoskeletal symptoms in the left knee only, otherwise denies other generalized, musculoskeletal, skin or neurological changes Related Data Home Medications ?Medication ?Instructions ?Recorded ?Confirmed azathioprine 50 mg tablet 200 mg PO QDAY 05/10/24 12/22/24 cetirizine 10 mg capsule (Zyrtec) 10 mg PO QDAY PRN 05/10/24 12/21/24 infliximab 100 mg intravenous 900 mg IV Q8W 05/10/24 12/22/24 solution Allergies Allergy/AdvReac Type Severity Reaction Status Date / Time acetaminophen (From Vicodin) AdvReac Mild Vomiting Verified 12/21/24 07:19 hydrocodone (From Vicodin) AdvReac Mild Vomiting Verified 12/21/24 07:19 [facility] Medical History Lumbar radiculopathy (12/2021) ?M54.16 - Radiculopathy, lumbar region (ICD-10) Pericarditis (11/2021) ?I31.9 - Disease of pericardium, unspecified (ICD-10) Surgical History History of arthroscopy of knee ?Z98.890 - Other specified postprocedural states (ICD-10) History of lumbar laminectomy (04/21/22) ?Z98.890 - Other specified postprocedural states (ICD-10) History of incisional hernia repair (08/2021) ?Z98.890 - Other specified postprocedural states (ICD-10) ?Z87.19 - Personal history of other diseases of the digestive system (ICD-10) History of colostomy (08/2020) Status post placement of ureteral stent (08/2020) ?Z96.0 - Presence of urogenital implants (ICD-10) History of resection of small bowel (08/2020) ?Z90.49 - Acquired absence of other specified parts of digestive tract (ICD-10) Family History Aunt Ulcerative colitis Uncle Crohn's disease Social History Smoking Status: Former smoker Do you use any of these nicotine containing products: None Second hand tobacco smoke exposure: No How often do you have a drink containing alcohol: monthly or less AUDIT-C Alcohol total score: 1 Non-prescribed substance use: marijuana (any form) service: No Exam Const: Vital Signs, click to edit/add: Vital Signs - 24 hr 12/22/24 04:59 Temperature 98.0 F Pulse Rate [Pulse Oximeter] 99 Respiratory Rate 18 Blood Pressure [Ri ght Upper Arm] 183/125 H Pulse Oximetry 96 Oxygen Delivery Me thod Room Air Documenting provider has reviewed patient's vital signs: yes Common normals: no apparent distress General appearance: cooperative and well kempt Other: Mildly uncomfortable but no distress HENMT: Common normals: normocephalic Head and scalp: normocephalic Other: Moist membranes, lips acyanotic no signs of facial injuries. Eye: General eye: normal appearance of both eyes Neck & C-Spine: General: normal visual inspection Resp: Common normals: normal respiratory effort Effort & inspection: able to speak in complete sentences Extremity: Other: Right knee with normal range of motion, no swelling no effusion, no bruising or deformity. Left knee with no swelling, bruising or deformity. Normal flexion and extension. Mild tenderness to palpation of medial joint line. Ligament testing is negative, all seem structurally intact. Mild tenderness with varus maneuvers. Negative patellar grind. No tenderness to posterior knee. Symmetric calves without swelling or deformity. No significant palpable cords. Normal strength, appearance, range of motion of both ankles. Neuro: Motor exam: no movement abnormalities noted Psych: Appearance: well kempt Attitude: engaged Insight: insight good Judgement: judgment good Skin: Common normals: no rashes or lesions noted General skin exam: no rashes or lesions noted Course Course ED Course: 34-year-old male with what appears to be a mild knee injury. Differential diagnosis including occult fracture, ligamentous injury, cartilaginous injury, contusion, sprain. Sprain most likely. Patient will have 1000 mg Tylenol p.o. x1 and x-ray of left knee. Reevaluation(s) Time of Reevaluation #1: 05:53 Reevaluation #1: Counseled patient on findings, x-ray normal. Suspect mild sprain. No significant effusion that would suggest a major tear. Counseled patient that there certainly could be a minor tear but anything that is not clinically noted on exam and certainly did not cause any type of effusion by this point is unlikely to require surgery. Counseled on use of Tylenol 1000 mg every 6 hours. Has sparing use of NSAIDs due to history of Crohn's disease. Will give prescription for Flexeril to use at bedtime to help with sleep with the pain is bothersome. I do not see any potential benefit for brace, crutches or other similar treatment. Recommended primary care orthopedic follow-up if he is still symptomatic it 2 weeks for consideration of advanced imaging. He verbalizes understanding and agreement. Vital Signs Vital signs: Initial Vital Signs Temperature 98.0 F 12/22/24 04:59 Temperature Source Temporal Artery Scan 12/22/24 04:59 Pulse Rate 99 12/22/24 04:59 Respiratory Rate 18 12/22/24 04:59 Blood Pressure 183/125 H 12/22/24 04:59 Blood Pressure Mean 144 H 12/22/24 04:59 Blood Pressure Position Sitting 12/22/24 04:59 Pulse Oximetry 96 12/22/24 04:59 Oxygen Delivery Method Room Air 12/22/24 04:59 Vital Signs Temperature 98.0 F 12/22/24 04:59 Pulse Rate 99 12/22/24 04:59 Respiratory Rate 18 12/22/24 04:59 Blood Pressure 183/125 H 12/22/24 04:59 Pulse Oximetry 96 12/22/24 04:59 Oxygen Delivery Method Room Air 12/22/24 04:59 Temperature 98.0 F 12/22/24 04:59 Pulse Rate 99 12/22/24 04:59 Respiratory Rate 18 12/22/24 04:59 Blood Pressure 183/125 H 12/22/24 04:59 Pulse Oximetry 96 12/22/24 04:59 Oxygen Delivery Method Room Air 12/22/24 04:59 Medications Administered Medications: Generic Name Dose Route Start Last Admin Trade Name Freq PRN Reason Stop Dose Admin Acetaminophen 1,000 mg 12/22/24 05:14 12/22/24 05:22 Acetaminophen 500 Mg Tablet PO 12/22/24 05:15 1,000 mg ONCE ONE Administration Medical Decision Making Imaging Data X-ray left knee: Attestation: I have reviewed the pertinent imaging results. My impression: Normal knee x-ray Radiologist's impression: Impression: No sign of acute injury. Dictated by Anila Zavala MD @ 12/22/2024 5:47:37 AM Discharge Plan Discharge Clinical Impression: Left knee sprain Patient Disposition: Home w/ Parent or Adult Condition: Stable Instructions: Knee Sprain (DC) Additional Instructions: As we discussed, your x-ray looks great. On exam, there are no major signs of ligament instability or major tear. Typically any major ailment that would require surgical intervention will have quite a bit of swelling this long after an injury. A minor tear may not be as noticeable but also is unlikely to need any intervention. For pain I recommend Tylenol 1000 mg every 6 hours. As we discussed, sparingly use NSAIDs only if necessary. I will give you prescription for cyclobenzaprine which is a muscle relaxant. I intend this mainly for nighttime to help with pain but you may try it during the day. It will certainly cause some drowsiness so you might consider a half of a tablet and only if the Tylenol is not sufficient during the daytime. If you still have significant symptoms at the 2 week zachary, I would recommend follow-up with a primary care provider or orthopedic provider for referral for an MRI or other advanced imaging technique. I do not think brace or crutches will be overly helpful for you. Return to the emergency department if you have severe symptoms or significant loss of function. Activity Level: Activity as Tolerated Discharge Diet: Regular Prescriptions: No Action infliximab 100 mg recon soln 900 mg IV Q8W Zyrtec 10 mg capsule 10 mg PO QDAY PRN azathioprine 50 mg tablet 200 mg PO QDAY Follow Up/Referrals: Sushant Schreiber MD [Primary Care Provider] - Stand Alone Forms: Clacendix Info Instructions
[2024-12-22] MEDS: ACETAMINOPHEN 500 MG TABLET 1000 MG PO (05:22)
--- OUTSIDE RECORDS SUMMARY | 2024-12-22 05:23 | XMS_ITS | Encounter Summary ---
Author Organization [place] Address [address] [place] [address] Care Team Providers Care Nurse Manager Name Role Phone Sushant Schreiber MD Primary Care Provider No Ref-Primary, Physician Unavailable [phone] Cisco Caceres MD Unavailable [phone] Yung Rodriguez MD Unavailable Tatianna Horne [facility] Unavailable [phone] Billie Tucker RN Unavailable Unavailable Paul Sanford MD Unavailable [phone] Paul Sanford MD Unavailable [phone] Jt Waters MD Unavailable Bhavik Segura PA-C Unavailable [phone] Paul Sanford MD Unavailable [phone] Favian Mcknight MD Unavailable [phone] Favian Mcknight MD Unavailable [phone] Tatianna Horne [facility] Unavailable [phone] Lyudmila Baltazar RN Unavailable Unavailabl e Reason for Visit * Reason Onset Date Comments Appointment 11/14/2024 Encounter Details Date Type Department Care Team (Late st Contact Info) Description 11/14/2024 Telephone [facility] [address] [place] [address] Paula Jane PA-C [address] [place] [address] Appointment Social History Tobacco Use Types Packs/Day [...] file 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 Specialty phone number: [phone] Additional appointment(s) needed: Additonal Notes: NT DIRECTOR documented in this encounter Plan of Treatment Upcoming Encounters Date Type Department Care Team (Late st Contact Info) Description 01/12/2025 10:00 AM TALENT DIRECTOR Office Visit [facility] [address] [place] [address] Paul Sanford MD [address] [place] [address] documented as of this encounter Visit Diagnoses Not on filedocumented in this encounter Care Teams Nurse Manager Relationship Specialty Start Date End Date Sushant Schreiber MD [facility] [address] [place] [address] PCP - General Family Medicine 12/02/21 No Ref-Primary, Physician 12/02/21 Cisco Caceres MD [address] [place] [address] [id number] Fellow Gastroenterology 12/09/21 Yung Rodriguez MD [address] , [facility] [address] [place], [place] [address] Cardiovascular Disease 12/25/21 Tatianna Horne, [facility] [address] [place] [address] 300355 Pharmacist Pharmacist Powerhouse Electrician Apprentice 02/06/22 Billie Tucker, RN Specialty Home Service Director Gastroenterology 12/10/22 Paul Sanford MD [address] [place] [address] Gastroenterology 12/25/22 Paul Sanford MD [address] [place] [address] Referring Physician Gastroenterology 01/14/23 Jt Waters MD [address] [place] [address] 088335 Dermatology 01/14/23 Bhavik Segura PA-C [address] [place] [address] [id number] Physician Learning Coordinator Gastroenterology 04/28/23 Paul Sanford MD [address] [place] [address] 386645 Assigned Gastroenterology Provider 07/18/23 Favian Mcknight MD [address] [place], [place] [address] Dermatology 12/09/23 Favian Mcknight MD [address] [place], [place] 0[address] Assigned Surgical Provider 01/29/24 Tatianna Horne [facility] [address] [place] [address] [id number] Assigned MTM Pharmacist 07/08/24 Lyudmila Baltazar, RN Home Infusion Counselor [employer] 08/29/24 documented as of this encounter
--- OUTSIDE RECORDS SUMMARY | 2024-12-22 05:23 | XMS_ITS | Encounter Summary ---
Author Organization [facility] Address [address] [place] [address] Care Team Providers Care Software Tools Engineer Name Role Phone Sushant Schreiber MD Primary Care Provider No Ref-Primary, Physician Unavailable [phone] Cisco Caceres MD Unavailable [phone] Yung Rodriguez MD Unavailable Tatianna Horne [facility] Unavailable [phone] Billie Tucker RN Unavailable Unavailable Paul Sanford MD Unavailable [phone] Paul Sanford MD Unavailable [phone] Jt Waters MD Unavailable Jt Waters MD Unavailable Bhavik Segura PA-C Unavailable +[phone] Paul Sanford MD Unavailable [phone] Favian Mcknight MD Unavailable [phone] Favian Mcknight MD Unavailable [phone] Tatianna Horne [facility] Unavailable [phone] Lyudmila Baltazar RN Unavailable Unavailabl e Encounter Details Date Type Department Care Team (Late st Contact Info) Description 09/21/2023 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 Gender Identity Not on file Sexual Orientation Not on file documented as of this encounter Plan of Treatment Upcoming Encounters Date Type Department Care Team (Late st Contact Info) Description 01/12/2025 10:00 AM ASSEMBLY LOADER Office Visit [facility] [place] [address] [place] [phone] Paul Sanford MD [address] [place] [address] 173165 documented as of this encounter Visit Diagnoses Not on filedocumented in this encounter Care Teams Software Tools Engineer Relationship Specialty Start Date End Date Sushant Schreiber MD [facility] [address] [place] [address] PCP - General Family Medicine 12/02/21 No Ref-Primary, Physician 12/02/21 Cisco Caceres MD [address] [facility] [address] [place], [place] [id number] Fellow Gastroenterology 12/09/21 Yung Rodriguez MD [address] [place] [address] Cardiovascular Disease 12/25/21 Tatianna Horne, [facility] [address] [place] [address] Pharmacist Pharmacist Industrial Millwright 02/06/22 Billie Tucker, RN Specialty Payroll Professional Gastroenterology 12/10/22 Paul Sanford MD [address] [place] [place] [address] Gastroenterology 12/25/22 Paul Sanford MD [address] [place] [place] [address] Referring Physician Gastroenterology 01/14/23 Jt Waters MD [address] [place] [address] Dermatology 01/14/23 Jt Waters MD [address] [place] [address] 99677 Assigned Surgical Provider 01/17/23 01/28/24 Bhavik Segura PA-C [address] [place] [address] Physician Spinning Frame Fixer Gastroenterology 04/28/23 Paul Sanford MD [address] [place] [place] [address] Assigned Gastroenterology Provider 07/18/23 Favian Mcknight MD [address] [place] [address] Dermatology 12/09/23 Favian Mcknight MD [address] [place] [address] 18289 Assigned Surgical Provider 01/29/24 Tatianna Horne [facility] [address] [place] [address] Assigned MTM Pharmacist 07/08/24 Lyudmila Baltazar, RN Home Infusion Materials Development Engineer 08/29/24 documented as of this encounter
--- OUTSIDE RECORDS SUMMARY | 2024-12-22 05:23 | XMS_ITS | Encounter Summary ---
Author Organization [facility] Address [address] [place] [address] Care Team Providers Care Casting Wheel Operator Name Role Phone Sushant Schreiber MD Primary Care Provider No Ref-Primary, Physician Unavailable [phone] Cisco Caceres MD Unavailable [phone] Yung Rodriguez MD Unavailable Tatianna Horne [facility] Unavailable [phone] Billie Tucker RN Unavailable Unavailable Paul Sanford MD Unavailable [phone] Paul Sanford MD Unavailable [phone] Jt Waters MD Unavailable Bhavik Segura PA-C Unavailable +[phone] Paul Sanford MD Unavailable [phone] Favian Mcknight MD Unavailable [phone] Favian Mcknight MD Unavailable [phone] Tatianna Horne [facility] Unavailable [phone] Lyudmila Baltazar RN Unavailable Unavailabl e Encounter Details Date Type Department Care Team (Late st Contact Info) Description 10/27/2024 Home [facility] [address] [place] [address] Navjot Mantilla, [facility] [address] [facility] [place] [address] Crohn's disease of both small and large [...] on file Legal 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 SECTION 8 PROPERTY MANAGER Gender Identity Not on file Sexual Orientation Not on file documented as of this encounter Plan of Treatment Upcoming Encounters Date Type Department Care Team (Late st Contact Info) Description 01/12/2025 10:00 AM SECTION 8 PROPERTY MANAGER Office Visit [facility]astro[facility]ology Clinic [address] 4[address] [place] [phone] Paul Sanford MD [address] [place] [address] documented as of this encounter Visit Diagnoses Diagnosis Crohn's disease of both small and large intestine with other complication (H) documented in this encounter Care Teams Casting Wheel Operator Relationship Specialty Start Date End Date Sushant Schreiber MD [facility] [address] [place] [address] PCP - General Family Medicine 12/02/21 No Ref-Primary, Physician 12/02/21 Cisco Caceres MD [address] [place] [address] 284 [place], [place] 226495 Fellow Gastroenterology 12/09/21 Yung Rodriguez MD [address], [address] [place] [address] Cardiovascular Disease 12/25/21 Tatianna Horne, [facility] [address] [place] [address] 260375 Pharmacist Pharmacist Computer Peripheral Equipment Operator 02/06/22 Billie Tucker, RN Specialty Stapler Coil Unit Gastroenterology 12/10/22 Paul Sanford MD [address] [place] [address] Gastroenterology 12/25/22 Paul Sanford MD [address] [place] [address] Referring Physician Gastroenterology 01/14/23 Jt Waters MD [address] [place] [address] Dermatology 01/14/23 Bhavik Segura PA-C [address] [place] [address] 78953 Physician Louver Door Assembler Gastroenterology 04/28/23 Paul Sanford MD [address] [place] [address] 67[address] Assigned Gastroenterology Provider 07/18/23 Favian cMknight MD [address] [place] [address] Dermatology 12/09/23 Favian Mcknight MD [address] [place] [address] 44112 Assigned Surgical Provider 01/29/24 Tatianna Horne, [facility] [address] [place] [address] Assigned MTM Pharmacist 07/08/24 Lyudmila Baltazar, RN Home Infusion Electric Organ Assembler And Checker 08/29/24 documented as of this encounter
--- OUTSIDE RECORDS SUMMARY | 2024-12-22 05:23 | XMS_ITS | Encounter Summary ---
Author Organization [facility] Address [address] [place] [address] Care Team Providers Care Attendant Arcade Name Role Phone Sushant Schreiber MD Primary Care Provider No Ref-Primary, Physician Unavailable [phone] Cisco Caceres MD Unavailable [phone] Yung Rodriguez MD Unavailable Tatianna Horne [facility] Unavailable [phone] Billie Tucker RN Unavailable Unavailable Paul Sanford MD Unavailable [phone] Paul Sanford MD Unavailable [phone] Jt Waters MD Unavailable Jt Waters MD Unavailable Bhavik Segura PA-C Unavailable [phone] Paul Sanford MD Unavailable [phone] Favian Mcknight MD Unavailable [phone] Favian Mcknight MD Unavailable [phone] Tatianna Horne [facility] Unavailable [phone] Lyudmila Baltazar RN Unavailable Unavailabl e Encounter Details Date Type Department Care Team (Late st Contact Info) Description 11/11/2023 [facility] [address] 4th [place] [address] Hang, Allison Social History Tobacco [...] on file Legal 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 Gastroenterology Clinic [address] [phone] Paul Sanford MD [address] [place] [address] 697235 documented as of this encounter Visit Diagnoses Not on filedocumented in this encounter Care Teams Attendant Arcade Relationship Specialty Start Date End Date Sushant Schreiber MD [facility] [address] [place] [address] PCP - General Family Medicine 12/02/21 No Ref-Primary, Physician 12/02/21 Cisco Caceres MD [address] [place] [address] 284 [place], [place] 7288[address] Fellow Gastroenterology 12/09/21 Yung Rodriguez MD [address] [facility] [address] [place], [place] 2[address] Cardiovascular Disease 12/25/21 Tatianna Horne, [facility] [address] [place] [address] Pharmacist Pharmacist Microbiology Laboratory Manager 02/06/22 Billie Tucker, RN Specialty Customer Advocate Gastroenterology 12/10/22 Paul Sanford MD [address] [place] [address] Gastroenterology 12/25/22 Paul Sanford MD [address] [place] [address] 29369 Referring Physician Gastroenterology 01/14/23 Jt Waters MD [address] [place] [address] 0[address] Dermatology 01/14/23 Jt Waters MD [address] [place] [address] 80449 Assigned Surgical Provider 01/17/23 01/28/24 Bhavik Segura PA-C [address] [place] [address] Physician Streetcar Operator Gastroenterology 04/28/23 Paul Sanford MD [address] [place] [address] 41749 Assigned Gastroenterology Provider 07/18/23 Favian Mcknight MD [address] [place] [address]64 Dermatology 12/09/23 Favian Mcknight MD [address] [place] [address] 09137 Assigned Surgical Provider 01/29/24 aTtianna Horne [facility] 9 [place] [address] Assigned MTM Pharmacist 07/08/24 Lyudmila Baltazar, RN Home Infusion Speech Language Pathologist 08/29/24 documented as of this encounter
--- OUTSIDE RECORDS SUMMARY | 2024-12-22 05:23 | XMS_ITS | Encounter Summary ---
Author Organization [facility] Address [address] [place] [address] 96681 Care Team Providers Care It Business Systems Analyst Name Role Phone Sushant Schreiber MD Primary Care Provider No Ref-Primary, Physician Unavailable [phone] Cisco Caceres MD Unavailable [phone] Yung Rodriguez MD Unavailable Tatianna Horne [facility] Unavailable [phone] Billie Tucker RN Unavailable Unavailable Paul Sanford MD Unavailable [phone] Paul Sanford MD Unavailable [phone] Jt Waters MD Unavailable Jt Waters MD Unavailable Bhavik Segura PA-C Unavailable [phone] Paul Sanford MD Unavailable [phone] Favian Mcknight MD Unavailable [phone] Favian Mcknight MD Unavailable [phone] Tatianna Horne [facility] Unavailable [phone] Lyudmila Baltazar RN Unavailable Unavailabl e Encounter Details Date Type Department Care Team (Late st Contact Info) Description 10/30/[address] [facility] Gastroenterology Clinic [address] 4th [place] [address] [facility] Social History Tobacco Use Types Packs/Day Years [...] on file Legal 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 EPIDEMIOLOGIST Gender Identity Not on file Sexual Orientation Not on file documented as of this encounter Plan of Treatment Upcoming Encounters Date Type Department Care Team (Late st Contact Info) Description 01/12/2025 10:00 AM EPIDEMIOLOGIST Office Visit [facility] [address] [phone] Paul Sanford MD [address] [place] [address] 794345 documented as of this encounter Visit Diagnoses Not on filedocumented in this encounter Care Teams It Business Systems Analyst Relationship Specialty Start Date End Date Sushant Schreiber MD [facility] [address] [place] [address] PCP - General Family Medicine 12/02/21 No Ref-Primary, Physician 12/02/21 Cisco Caceres MD [address] [place] [address] 284 [place], [place] 0[address]25 Fellow Gastroenterology 12/09/21 Yung Rodriguez MD [address] [place], [place] 5435[address] Cardiovascular Disease 12/25/21 Tatianna Horne, [facility] [address] [place] [address] Pharmacist Pharmacist Manager Product Support 02/06/22 Billie Tucker, RN Specialty Forestry Worker Gastroenterology 12/10/22 Paul Sanford MD [address] [place] [address] 7[address]11 Gastroenterology 12/25/22 Paul Sanford MD [address] [place] [address] 83387 Referring Physician Gastroenterology 01/14/23 Jt Waters MD [address] [place] [address]55 Dermatology 01/14/23 Jt Waters MD [address] [place] [address] 21481 Assigned Surgical Provider 01/17/23 01/28/24 Bhavik Segura PA-C [address] [place] [address] Physician Manager Emergency Gastroenterology 04/28/23 Paul Sanford MD [address] [place] [address] 52586 Assigned Gastroenterology Provider 07/18/23 Favian Mcknight MD [address] [place] [address] 19153 Dermatology 12/09/23 Favian Mcknight MD [address] [place] [address] 24624 Assigned Surgical Provider 01/29/24 Tatianna Horne [facility] [address] [place], [place] 5[address] Assigned MTM Pharmacist 07/08/24 Lyudmila Baltazar, RN Home Infusion Automobile Painter 08/29/24 documented as of this encounter
--- OUTSIDE RECORDS SUMMARY | 2024-12-22 05:23 | XMS_ITS | Encounter Summary ---
Author Organization [facility] Address [address] [place] [address] Care Team Providers Care Histology Technician Name Role Phone Sushant Schreiber MD Primary Care Provider No Ref-Primary, Physician Unavailable [phone] Cisco Caceres MD Unavailable [phone] Yung Rodriguez MD Unavailable Tatianna Horne [facility] Unavailable +[phone] Billie Tucker RN Unavailable Unavailable Paul Sanford MD Unavailable [phone] Paul Sanford MD Unavailable [phone] Jt Waters MD Unavailable Bhavki Segura PA-C Unavailable +[phone] Paul Sanford MD Unavailable [phone] Favian Mcknight MD Unavailable [phone] Favian Mcknight MD Unavailable [phone] Tatianna Horne [facility] Unavailable [phone] Lyudmila Baltazar RN Unavailable Unavailabl e Reason for Visit * Reason Onset Date Comments Appointment 11/17/2024 Encounter Details Date Type Department Care Team (Late st Contact Info) Description 11/17/2024 Telephone [facility] Gastroenterology Clinic [address] 4th [place] [address] Paula Jane PA-C [address] [place] [address] Appointment Social History Tobacco Use Types Packs/Day [...] on file Legal 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 IMAGING ANALYST Gender Identity Not on file Sexual Orientation Not on file documented as of this encounter Miscellaneous Notes * Telephone Encounter - Mary Davis - 11/17/2024 11:38 AM CST Left Voicemail (2nd Attempt) no VM for the patient to call back and schedule the following: Appointment type: Return Provider: Paula Jane Return date: Next Available Specialty phone number: [phone] Additional appointment(s) needed: Additonal Notes: ING ANALYST documented in this encounter Plan of Treatment Upcoming Encounters Date Type Department Care Team (Late st Contact Info) Description 01/12/2025 10:00 AM IMAGING ANALYST Office Visit [facility] Gastroenterology Clinic [address] [place] [address] Paul Sanford MD [address] [place] [address] 32[address] documented as of this encounter Visit Diagnoses Not on filedocumented in this encounter Care Teams Histology Technician Relationship Specialty Start Date End Date Sushant Schreiber MD [facility] [address] [place] [address] PCP - General Family Medicine 12/02/21 No Ref-Primary, Physician 12/02/21 Cisco Caceres MD [address] [place] [address] 149545 Fellow Gastroenterology 12/09/21 Yung Rodriguez MD [address] , [facility] [address] [place] [address] Cardiovascular Disease 12/25/21 Tatianna Horne, [facility] [address] [place] [address] [phone] Pharmacist Pharmacist Steward/Stewardess Economy Class 02/06/22 Billie Tucker, RN Specialty Financial Specialist Gastroenterology 12/10/22 Paul Sanford MD [address] [place] [address] MD Gastroenterology 12/25/22 Paul Sanford MD [address] [place] [address] 22320 Referring Physician Gastroenterology 01/14/23 Jt Waters MD [address] [place] [address] 78257 Dermatology 01/14/23 Bhavik Segura PA-C [address] [place] [address] 660275 Physician Elementary School Science Teacher Gastroenterology 04/28/23 Paul Sanford MD [address] [place] [address] 99935 Assigned Gastroenterology Provider 07/18/23 Favian Mcknight MD [address] [place], [place] 881655 Dermatology 12/09/23 Favian Mcknight MD [address] [place] [address] 975665 Assigned Surgical Provider 01/29/24 Tatianna Horne [facility] [address] [place] [address] [id number] Assigned MTM Pharmacist 07/08/24 Lyudmila Baltazar, RN Home Infusion Application Administrator 08/29/24 documented as of this encounter
--- OUTSIDE RECORDS SUMMARY | 2024-12-22 05:23 | XMS_ITS | Encounter Summary ---
Author Organization [facility] Address [address] [place] [address] Care Team Providers Care Title Camera Operator Name Role Phone Sushant Schreiber MD Primary Care Provider No Ref-Primary, Physician Unavailable [phone] Cisco Caceres MD Unavailable [phone] Sabiha Hogan APRN HR INTERNSHIP Unavailable [phone] Yung Rodriguez MD Unavailable Tatianna Horne [facility] Unavailable Tatianna Horne [facility] Unavailable [phone] Tatianna Horne [facility] Unavailable [phone] Billie Tucker RN Unavailable Unavailable [place] PA-C Unavailable [phone] Paul Sanford MD Unavailable [phone] Paul Sanford MD Unavailable Jt Waters MD Unavailable Jt Waters MD Unavailable Bhavik Segura PA-C Unavailable [phone] Paul Sanford MD Unavailable Favian Mcknight MD Unavailable [phone] Favian Mcknight MD Unavailable [phone] Tatianna Horne [facility] Unavailable [phone] Lyudmila Baltazar RN Unavailable Unavailabl e Encounter Details Date Type Department Care Team (Late st Contact Info) Description 06/09/2022 Home Infusion ([facility]) [facility] [address] [place] [phone] Josue Hedrick RN Social History Tobacco Use [...] on file Legal 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 Gender Identity Not on file Sexual Orientation [...] st Contact Info) Description 01/12/2025 10:00 AM 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 Office Visit [facility] Gastroenterology Clinic [address] [place] [phone] Paul Sanford MD [address] [place] [address] 594545 documented as of this encounter Visit Diagnoses Not on filedocumented in this encounter Care Teams Title Camera Operator Relationship Specialty Start Date End Date Sushant Schreiber MD [address] [address] PCP - General Family Medicine 12/02/21 No Ref-Primary, Physician 12/02/21 Cisco Caceres MD [address] [place] [address] 743685 Fellow Gastroenterology 12/09/21 Sabiha Hogan APRN HR INTERNSHIP [address] [place] 677085 Assigned Heart and Vascular Provider 12/15/21 02/13/23 Yung Rodriguez MD [address] [place], [place] 863[address] Cardiovascular Disease 12/25/21 Tatianna Horne [facility] [address] [place] [address] [phone] Pharmacist Pharmacist Twister Operator 02/06/22 Tatianna Horne [facility] [address] [place] [address] 211565 Assigned MTM Pharmacist 04/12/22 Tatianna Horne [facility] [address] [place] [address] 508405 Assigned MTM Pharmacist 08/13/22 Billie Tucker, RN Specialty Internship Coordinator Gastroenterology 12/10/22 [place] PA-C [address] [place] [address] Physician Environmental Compliance Manager Dermatology 12/25/22 01/13/23 Paul Sanford MD [address] [place] [address] MD Gastroenterology 12/25/22 Paul Sanford MD [address] [place] [address] 30258 Referring Physician Gastroenterology 01/14/23 Jt Waters MD 500 [place] [address] MD Dermatology 01/14/23 Jt Waters MD [address] [place] [address] 81184 Assigned Surgical Provider 01/17/23 01/28/24 Bhavik Segura PA-C [address] [place] [address] 57813 Physician Environmental Compliance Manager Gastroenterology 04/28/23 Paul Sanford MD [address] [place] [address] Assigned Gastroenterology Provider 07/18/23 Favian Mcknight MD [address] [place] [address] Dermatology 12/09/23 Favian Mcknight MD [address] [place], [place] 161155 Assigned Surgical Provider 01/29/24 Tatianna Horne [facility] [address] [place], [place] 490155 Assigned MTM Pharmacist 07/08/24 Lyudmila Baltazar, RN Home Infusion Pastry Supervisor 08/29/24 documented as of this encounter
--- OUTSIDE RECORDS SUMMARY | 2024-12-22 05:23 | XMS_ITS | Continuity of Care Document ---
Author Organization [facility] Address [address] [place] [address] Phone Care Team Providers Care Patient Access Registrar Name Role Phone Marli MOCTEZUMA, Tadeo Unavailable [...] C, [address], [place], [id number], [place] tel:[phone] [facility] No Information 3 Calles Tadeo. [facility], [address], [address], [place], [place], [address] , [place]. tel:[phone] OFFICE/OUTPAT IENT VISIT EST Phone [facility], [address], [facility], [id number], [place] tel:[phone] [facility] Radiculopathy, lumbar region 3 Panvica Issac. [facility], [address] [place] [address], [address], [place], [place], [address] , [place]. tel:[phone] Referring Provider: Angela Marlow, [facility] [address], [facility] [place], [address] . tel:[phone] [facility], [address], [facility], [id number], [place] tel:[phone] [facility] Encounter for other specified surgical aftercare 2 Calles Tadeo. [facility], [address] [place] [address], [address], [place], [place], [id number] , [place]. tel:[phone] Referring Provider: Angela Marlow, [facility] [address], [facility] [place], [address] . tel:[phone] [facility], [address], [facility], [address], [place] tel:[phone] [facility] No Information 2 Pia Wade. [facility], [address], [place], [address], [place]. [phone] Referring Provider: Angela Marlow, [facility] [address], [place], [address] . tel:[phone] [facility], [address], [place], [address], [place] tel:[phone] [facility] No Information 2 Calles Tadeo. [facility], [address], [address], [place], [address] , [place]. tel: [phone] [facility], [address], [place], [address], [place] tel:[phone] [facility] No Information 2 Panvica Issac. [facility], [address], [address], [place], [address] , [place]. tel:[phone] Referring Provider: Angela Marlow, [facility] [address], [place], [address] . tel:[phone] [facility], [address], [place], [id number], [place] tel:[phone] [facility] No Information 2 Calles Tadeo. [facility], [address], [address], [facility], [address] , [place]. tel:[phone] Referring Provider: Angela Marlow, [facility] [address], [place], [address] . tel:[phone] Office/Outpat ient Visit,Est, Mod [facility], [address], [place], [address], [place] tel:[phone] [facility] Other intervertebral disc displacement, lumbar regionSpinal stenosis, lumbar region with neurogenic claudication Feb- 2 Calles Tadeo. [facility], [address], [address], [place], [address] , [place]. tel:[phone] Referring Provider: Angela Marlow, [facility] [address], [place], [address] . tel:[phone] Office/Outpat ient Visit,New, Anastacio [facility], [address], [place], [id number], [place] tel:[phone] [facility] Low back pain, unspecifiedRadi culopathy, lumbar region Apr-0 2 Asaf Miller. [facility], [address] [place] [address] [address], [place], [place], [address] , [place]. tel:[phone] Referring Provider: Angela Marlow, [facility] [address], [facility] [place], [address] . tel:[phone] Family History Family Member Type Diagnosis Age At Onset No Information Payers Payer name Insurance type Covered constitution party ID Authoriza tion(s) Med[employer] CI [id number] Social History Type Description Quantity Date Captured [...]
--- OUTSIDE RECORDS SUMMARY | 2024-12-22 05:23 | XMS_ITS | Encounter Summary ---
Author Organization [facility] Address [address] [place] [address] Care Team Providers Care Canoe Inspector Final Name Role Phone Sushant Schreiber MD Primary Care Provider [phone] Ref-Primary, Physician Unavailable [phone] Cisco Caceres MD Unavailable [phone] Yung Rodriguez MD Unavailable Tatianna Horne [facility] Unavailable [phone] Billie Tucker RN Unavailable Unavailable Paul Sanford MD Unavailable [phone] Paul Sanford MD Unavailable [phone] Jt Waters MD Unavailable Jt Waters MD Unavailable Bhavik Segura PA-C Unavailable [phone] Paul Sanford MD Unavailable [phone] Favian Mcknight MD Unavailable [phone] Favian Mcknight MD Unavailable [phone] Tatianna Horne [facility] Unavailable [phone] Lyudmila Baltazar RN Unavailable Unavailabl e Encounter Details Date Type Department Care Team (Late st Contact Info) Description 09/21/2023 [facility] Gastro[facility]ology Clinic [place] [address] 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 Gender Identity Not on file Sexual Orientation Not on file documented as of this encounter Plan of Treatment Upcoming Encounters Date Type Department Care Team (Late st Contact Info) Description 01/12/2025 10:00 AM WATCH ENGINE OPERATOR Office Visit [facility]ology Clinic [address] [phone] Paul Sanford MD [address] [place] [address] documented as of this encounter Visit Diagnoses Not on filedocumented in this encounter Care Teams Canoe Inspector Final Relationship Specialty Start Date End Date Sushant Schreiber MD [facility] [address] [place] [address] PCP - General Family Medicine 12/02/21 No Ref-Primary, Physician 12/02/21 Cisco Caceres MD [address] [place] [address] [address] [place], [place] [address] Fellow Gastroenterology 12/09/21 Yung Rodriguez MD [address] [facility] [address] [place] [address] Cardiovascular Disease 12/25/21 [facility] [address] [place] [address] Pharmacist Pharmacist Civilian Jail Officer 02/06/22 Billie Tucker, RN Specialty Share Holder Gastroenterology 12/10/22 Paul Sanford MD [address] [place] [address] Gastroenterology 12/25/22 Paul Sanford MD [address] [place] [address] Referring Physician Gastroenterology 01/14/23 Jt Waters MD [address] [place] [address] 443025 Dermatology 01/14/23 Jt Waters MD [address] [place] [address] Assigned Surgical Provider 01/17/23 01/28/24 Bhavik Segura PA-C [address] [place] [address] 987935 Physician Communication Equipment Repairer Gastroenterology 04/28/23 Paul Sanford MD [address] [place] [address] Assigned Gastroenterology Provider 07/18/23 Favian Mcknight MD [address] [place] [address] Dermatology 12/09/23 Favian Mcknight MD [address] [place] [address] Assigned Surgical Provider 01/29/24 Tatianna Horne [facility] [address] [place] [address] Assigned MTM Pharmacist 07/08/24 Lyudmila Baltazar, RN Home Infusion Visual Merchandising Assistant 08/29/24 documented as of this encounter
--- OUTSIDE RECORDS SUMMARY | 2024-12-22 05:23 | XMS_ITS | Encounter Summary ---
Author Organization [place] Address [address] [place] [address] Care Team Providers Care Substation Designer Name Role Phone Sushant Schreiber MD Primary Care Provider [phone] Ref-Primary, Physician Unavailable [phone] Cisco Caceres MD Unavailable [phone] Yung Rodriguez MD Unavailable Tatianna Horne [facility] Unavailable [phone] Billie Tucker RN Unavailable Unavailable Paul Sanford MD Unavailable [phone] Paul Sanford MD Unavailable [phone] Jt Waters MD Unavailable Jt Waters MD Unavailable Bhavik Segura PA-C Unavailable [phone] Paul Sanford MD Unavailable [phone] Favian Mcknight MD Unavailable [phone] Favian Mcknight MD Unavailable [phone] Tatianna Horne [facility] Unavailable [phone] Lyudmila Baltazar RN Unavailable Unavailabl e Encounter Details Date Type Department Care Team (Late st Contact Info) Description 11/02/2023 [facility] Gastroenterology Clinic [address] 4th [place] [address] [facility] Social History Tobacco Use Types Packs/Day Years [...] on file Legal 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 SPECIAL 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 Gender Identity Not on file Sexual Orientation Not on file documented as of this encounter Plan of Treatment Upcoming Encounters Date Type Department Care Team (Late st Contact Info) Description 01/12/2025 10:00 AM SPECIAL EFFECTS TECHNICIAN Office Visit [facility] Gastroenterology Clinic [address] [phone] Paul Sanford MD [address] [place] [address] 771815 documented as of this encounter Visit Diagnoses Not on filedocumented in this encounter Care Teams Substation Designer Relationship Specialty Start Date End Date Sushant Schreiber MD [facility] [address] [place] [address] PCP - General Family Medicine 12/02/21 No Ref-Primary, Physician 12/02/21 Cisco Caceres MD [address] [place] [address] 284 [place], [place] [address] Fellow Gastroenterology 12/09/21 Yung Rodriguez MD [address] [facility] [address] [place], [place] 00[address] Cardiovascular Disease 12/25/21 Tatianna Horne, [facility] [address] [place] [address] Pharmacist Pharmacist Referral And Information Aide 02/06/22 Billie Tucker, RN Specialty Hooker Operator Gastroenterology 12/10/22 Paul Sanford MD [address] [place] [address] Gastroenterology 12/25/22 Palu Sanford MD [address] [place] [address] Referring Physician Gastroenterology 01/14/23 Jt Waters MD [address] [place] [address] Dermatology 01/14/23 Jt Waters MD [address] [place] [address] Assigned Surgical Provider 01/17/23 01/28/24 Bhavik Segura PA-C [address] [place] [address] Physician Poultry Cutter Gastroenterology 04/28/23 Paul Sanford MD [address] [place] [address] Assigned Gastroenterology Provider 07/18/23 Favian Mcknight MD [address] [place] [address] Dermatology 12/09/23 Favian Mcknight MD [address] [place] [address] 21519 Assigned Surgical Provider 01/29/24 Tatianna Horne [facility] [address] [place], [place] [address] Assigned MTM Pharmacist 07/08/24 Lyudmila Baltazar, RN Home Infusion Advertising Agent 08/29/24 documented as of this encounter
--- OUTSIDE RECORDS SUMMARY | 2024-12-22 05:23 | XMS_ITS | Encounter Summary ---
Author Organization [facility] Address [address] [place] [address] Care Team Providers Care Biological Science Aide Name Role Phone Sushant Schreiber MD Primary Care Provider [phone] Ref-Primary, Physician Unavailable [phone] Cisco Caceres MD Unavailable [phone] Yung Rodriguez MD Unavailable Tatianna Horne [facility] Unavailable [phone] Billie Tucker RN Unavailable Unavailable Paul Sanford MD Unavailable [phone] Paul Sanford MD Unavailable [phone] Jt Waters MD Unavailable Bhavik Segura PA-C Unavailable [phone] Paul Sanford MD Unavailable [phone] Favian Mcknight MD Unavailable [phone] Favian Mcknight MD Unavailable [phone] Tatianna Horne [facility] Unavailable [phone] Lyudmila Baltazar RN Unavailable Unavailabl e Encounter Details Date Type Department Care Team (Late st Contact Info) Description 11/14/2024 Telephone [facility] Gastroenterology Clinic [address] 4th [place] [address] Billie Tucker, RN Social History [...] on file Legal 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 LIBRARY MEDIA ASSISTANT Gender Identity Not on file Sexual Orientation [...] coordinators requesting assistance with scheduling follow up. ARY MEDIA ASSISTANT * Telephone Encounter - Billie Tucker RN - 11/14/2024 12:34 PM CST ----- Message from Billie Lundberg sent at 11/14/2024 10:47 AM LIBRARY MEDIA ASSISTANT ----- Regarding: FW: Inflectra renewal needed ----- Message ----- From: Rosey Krishna RPH Sent: 11/14/2024 10:12 AM LIBRARY MEDIA ASSISTANT To: [facility] Ibd Nurses Subject: Inflectra renewal needed Hello, Patients orders will be expiring soon. Is it OK for [facility] to renew our current Inflectra orders for another year? Thank you, Rosey Krishna, PharmD Clinical Pharmacist [facility] Office: ARY MEDIA ASSISTANT documented in this encounter Plan of Treatment Upcoming Encounters Date Type Department Care Team (Late st Contact Info) Description 01/12/2025 10:00 AM LIBRARY MEDIA ASSISTANT Office Visit [facility] Gastroenterology Clinic [place] [address] [facility] 4th [place] [address] Paul San[place] MD [address] [place] [address] Scheduled Orders Name Type Priority Associated [...] Primary documented in this encounter Care Teams Biological Science Aide Relationship Specialty Start Date End Date Sushant Schreiber MD [facility] [address] [place] [address] PCP - General Family Medicine 12/02/21 No Ref-Primary, Physician 12/02/21 Cisco Caceres MD [address] [place] [address] 284 [place], [place] 499[address] Fellow Gastroenterology 12/09/21 Yung Rodriguez MD [address] [facility] [address] [place] [address] Cardiovascular Disease 12/25/21 Tatianna Horne, [facility] [address] [place] [address] 846255 Pharmacist Pharmacist Curtain Worker 02/06/22 Billie Tucker, RN Specialty Quotation Checker Gastroenterology 12/10/22 Paul Sanford MD [address] [place] [address] Gastroenterology 12/25/22 Paul Sanford MD [address] [place] [address] 041455 Referring Physician Gastroenterology 01/14/23 Jt Waters MD [address] [place] [address] 426245 Dermatology 01/14/23 Bhavik Segura PA-C [address] [place] [address] 263545 Physician Analytical Clerk Gastroenterology 04/28/23 Paul Sanford MD [address] [place] [address] 958545 Assigned Gastroenterology Provider 07/18/23 Favian Mcknight MD [address] [place] [address] Dermatology 12/09/23 Favian Mcknight MD [address] [place] [address] Assigned Surgical Provider 01/29/24 Tatianna Horne [facility] [address] [place] [address] Assigned MTM Pharmacist 07/08/24 Lyudmila Baltazar, RN Home Infusion Arch Support Maker 08/29/24 documented as of this encounter
--- OUTSIDE RECORDS SUMMARY | 2024-12-22 05:23 | XMS_ITS | Encounter Summary ---
Author Organization [place] Address [address] [place] [address] Care Team Providers Care Coding Educator Name Role Phone Sushant Schreiber MD Primary Care Provider [phone] Ref-Primary, Physician Unavailable [phone] Cisco Caceres MD Unavailable [phone] Yung Rodriguez MD Unavailable Tatianna Horne [facility] Unavailable [phone] Billie Tucker RN Unavailable Unavailable Paul Sanford MD Unavailable [phone] Paul Sanford MD Unavailable [phone] Jt Waters MD Unavailable Bhavik Segura PA-C Unavailable +[phone] Paul Sanford MD Unavailable [phone] Favian Mcknight MD Unavailable [phone] Favian Mcknight MD Unavailable [phone] Tatianna Horne [facility] Unavailable [phone] Lyudmila Baltazar RN Unavailable Unavailabl e Encounter Details Date Type Department Care Team (Late st Contact Info) Description 11/03/2024 MyC Medical Advice [facility] Gastroenterology Clinic [address] 4th [place] [address] Allison Steward Social History Tobacco [...] on file 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 Gender Identity Not on file Sexual Orientation Not on file documented as of this encounter Plan of Treatment Upcoming Encounters Date Type Department Care Team (Late st Contact Info) Description 01/12/2025 10:00 AM INBOUND SALES CONSULTANT Office Visit [facility] Gastroenterology Clinic [address] 4th [place] [phone] Paul Sanford MD [address] [place] [address] 621605 documented as of this encounter Visit Diagnoses Not on filedocumented in this encounter Care Teams Coding Educator Relationship Specialty Start Date End Date Sushant Schreiber MD [facility] [address] [place] [address] PCP - General Family Medicine 12/02/21 No Ref-Primary, Physician 12/02/21 Cisco Caceres MD [address] [place] [address] 284 [place], [place] 47[address] Fellow Gastroenterology 12/09/21 Yung Rodriguez MD [address] [facility] [address] [place] [address]85 Cardiovascular Disease 12/25/21 Tatianna Horne, [facility] [address] [place] [address] Pharmacist Pharmacist Pharmacy Aide 02/06/22 Billie Tucker, RN Specialty Associate Merchandise Planner Gastroenterology 12/10/22 Paul Sanford MD [address] [place] [address] MD Gastroenterology 12/25/22 Paul Sanford MD [address] [place] [address] Referring Physician Gastroenterology 01/14/23 Jt Waters MD [address] [place] [address] Dermatology 01/14/23 Bhavik Segura PA-C [address] [place] [address] Physician Tomb Maker Helper Gastroenterology 04/28/23 Paul Sanford MD [address] [place] [address] Assigned Gastroenterology Provider 07/18/23 Favian Mcknight MD [address] [place] [address] Dermatology 12/09/23 Favian Mcknight MD [address] [place] [address] Assigned Surgical Provider 01/29/24 Tatianna Horne, [facility] [address] [place] [address] Assigned MTM Pharmacist 07/08/24 Lyudmila Baltazar, RN Home Infusion Corset Maker 08/29/24 documented as of this encounter
--- OUTSIDE RECORDS SUMMARY | 2024-12-22 05:23 | XMS_ITS | Encounter Summary ---
Author Organization [place] Address [address] [place] [address] Care Team Providers Care Electric Meter Inspector Name Role Phone Sushant Schreiber MD Primary Care Provider No Ref-Primary, Physician Unavailable [phone] Cisco Caceres MD Unavailable [phone] Yung Rodriguez MD Unavailable Tatianna Horne [facility] Unavailable [phone] Billie Tucker RN Unavailable Unavailable Paul Sanford MD Unavailable [phone] Paul Sanford MD Unavailable [phone] Jt Waters MD Unavailable Jt Waters MD Unavailable Bhavik Segura PA-C Unavailable [phone] Paul Sanford MD Unavailable [phone] Favian Mcknight MD Unavailable [phone] Favian Mcknight MD Unavailable [phone] Tatianna Horne [facility] Unavailable [phone] Lyudmila Baltazar RN Unavailable Unavailabl e Encounter Details Date Type Department Care Team (Late st Contact Info) Description 11/10/2023 [facility] Gastroenterology Clinic [address] 4th [place] [address] [facility] Social History Tobacco Use Types Packs/Day Years [...] on file 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 Gender Identity Not on file Sexual Orientation Not on file documented as of this encounter Plan of Treatment Upcoming Encounters Date Type Department Care Team (Late st Contact Info) Description 01/12/2025 10:00 AM EQUITY DIRECTOR Office Visit [facility] Gastroenterology Clinic [address] [phone] Paul Sanford MD [address] [place] [address] 937155 documented as of this encounter Visit Diagnoses Not on filedocumented in this encounter Care Teams Electric Meter Inspector Relationship Specialty Start Date End Date Sushant Schreiber MD [facility] [address] [place] [address] PCP - General Family Medicine 12/02/21 No Ref-Primary, Physician 12/02/21 Cisco Caceres MD [address] [place] [address] 284 [place], [place] [address] Fellow Gastroenterology 12/09/21 Yung Rodriguez MD [address] [facility] [address] [place], [place] 375[address] Cardiovascular Disease 12/25/21 Tatianna Horne, [facility] [address] [place] [address] Pharmacist Pharmacist Account Executive Trainee 02/06/22 Billie Tucker, RN Specialty General Agent Gastroenterology 12/10/22 Paul Sanford MD [address] [place] [address] Gastroenterology 12/25/22 Paul Sanford MD [address] [place] [address] Referring Physician Gastroenterology 01/14/23 Jt Waters MD [address] [place] [address] Dermatology 01/14/23 Jt Waters MD [address] [place] [address] 19759 Assigned Surgical Provider 01/17/23 01/28/24 Bhavik Segura PA-C [address] [place] [address] Physician Lei Seller Gastroenterology 04/28/23 Paul Sanford MD [address] [place] [address] Assigned Gastroenterology Provider 07/18/23 Favian Mcknight MD [address] [place] [address] Dermatology 12/09/23 Favian Mcknight MD [address] [place] [address]108 Assigned Surgical Provider 01/29/24 Tatianna Horne [facility] 9 [place], [place] 4340[address] Assigned MTM Pharmacist 07/08/24 Lyudmila Baltazar, RN Home Infusion Upper Inspector 08/29/24 documented as of this encounter
--- OUTSIDE RECORDS SUMMARY | 2024-12-22 05:23 | XMS_ITS | Encounter Summary ---
Author Organization [place] Address [address] [place] [address] Care Team Providers Care Rugby League Footballer Name Role Phone Sushant Schreiber MD Primary Care Provider [phone] No Ref-Primary, Physician Unavailable [phone] Cisco Caceres MD Unavailable [phone] Yung Rodriguez MD Unavailable Tatianna Horne [facility] Unavailable [phone] Billie Tucker RN Unavailable Unavailable Paul Sanford MD Unavailable [phone] Paul Sanford MD Unavailable [phone] Jt Waters MD Unavailable Bhavik Segura PA-C Unavailable +[phone] Paul Sanford MD Unavailable [phone] Favian Mcknight MD Unavailable [phone] Favian Mcknight MD Unavailable [phone] Tatianna Horne [facility] Unavailable [phone] Lyudmila Baltazar RN Unavailable Unavailabl e Encounter Details Date Type Department Care Team (Late st Contact Info) Description 11/17/2024 [facility] Clinic [address] 4th [place] [address] Billie Tucker, RN Social History [...] on file 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 Gender Identity Not on file Sexual Orientation Not on file documented as of this encounter Plan of Treatment Upcoming Encounters Date Type Department Care Team (Late st Contact Info) Description 01/12/2025 10:00 AM RESEARCH STATISTICIAN Office Visit [facility]ology Clinic [address] [phone] Paul Sanford MD [address] [place] [address] 715595 documented as of this encounter Visit Diagnoses Not on filedocumented in this encounter Care Teams Rugby League Footballer Relationship Specialty Start Date End Date Sushant Schreiber MD [facility] - [address] [address] PCP - General Family Medicine 12/02/21 No Ref-Primary, Physician 12/02/21 Cisco Caceres MD [address] [place] [address] [id number] Fellow Gastroenterology 12/09/21 Yung Rodriguez MD [address] [place], [place] 350995 Cardiovascular Disease 12/25/21 Tatianna Horne, [facility] [address] [place] [address]130 Pharmacist Pharmacist Tool Lathe Operator 02/06/22 Billie Tucker, RN Specialty Noodle Catalyst Maker Gastroenterology 12/10/22 Paul Sanford MD [address] [place] [address] 64673 Gastroenterology 12/25/22 Paul Sanford MD [address] [place] [address] 78337 Referring Physician Gastroenterology 01/14/23 Jt Waters MD [address] [place] [address] Dermatology 01/14/23 Bhavik Segura PA-C [address] [place] [address] 65413 Physician Credit Administration Manager Gastroenterology 04/28/23 Paul Sanford MD [address] [place] [address] 13845 Assigned Gastroenterology Provider 07/18/23 Favian Mcknight MD [address] [place] [address] 28022 Dermatology 12/09/23 Favian Mcknight MD [address] [place] [address] 17048 Assigned Surgical Provider 01/29/24 Tatianna Horne, [facility] [address] [place] [address] Assigned MTM Pharmacist 07/08/24 Lyudmila Baltazar, RN Home Infusion Puff Iron Operator 08/29/24 documented as of this encounter
--- OUTSIDE RECORDS SUMMARY | 2024-12-22 05:24 | XMS_ITS | Encounter Summary ---
Author Organization [place] Address [address] [place] [address] 18657 Care Team Providers Care Digital Advertising Analyst Name Role Phone Sushant Schreiber MD Primary Care Provider No Ref-Primary, Physician Unavailable [phone] Cisco Caceres MD Unavailable [phone] Yung Rodriguez MD Unavailable Tatianna Horne [facility] Unavailable [phone] Billie Tucker RN Unavailable Unavailable Paul Sanford MD Unavailable +[phone] Paul Sanford MD Unavailable [phone] Jt Waters MD Unavailable Jt Waters MD Unavailable Bhavik Segura PA-C Unavailable +[phone] Paul Sanford MD Unavailable [phone] Favian Mcknight MD Unavailable [phone] Favian Mcknight MD Unavailable [phone] Tatianna Horne [facility] Unavailable [phone] Lyudmila Baltazar RN Unavailable Unavailabl e Encounter Details Date Type Department Care Team (Late st Contact Info) Description 09/15/2023 [facility] [place] [id number] [facility] 4th [place] [address] Mckenzie Velázquez RN Social History [...] on file 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 Gastroenterology Clinic [address] [phone] Paul Sanford MD [address] [place] [address] [phone] documented as of this encounter Visit Diagnoses Not on filedocumented in this encounter Care Teams Digital Advertising Analyst Relationship Specialty Start Date End Date Sushant Schreiber MD [facility] [address] [place] [address] PCP - General Family Medicine 12/02/21 No Ref-Primary, Physician 12/02/21 Cisco Caceres MD [address] [place] [address] [address] [place], [place] 627715 Fellow Gastroenterology 12/09/21 Yung Rodriguez MD [address] [facility] [address] [place] [address] Cardiovascular Disease 12/25/21 [facility] [address] [place] [address] Pharmacist Pharmacist Waterproof Bag Cutting Machine Operator 02/06/22 Billie Tucker, RN Specialty Grounds Restoration Specialist Gastroenterology 12/10/22 Paul Sanford MD [address] [place] [address] Gastroenterology 12/25/22 Paul Sanford MD [address] [place] [address] 13731 Referring Physician Gastroenterology 01/14/23 Jt Waters MD [address] [place] [address] 780185 Dermatology 01/14/23 Jt Waters MD [address] [place] [address] 60659 Assigned Surgical Provider 01/17/23 01/28/24 Bhavik Segura PA-C [address] [place] [address] 365465 Physician Cupola Tapper Helper Gastroenterology 04/28/23 Paul Sanford MD [address] [place] [address] 24326 Assigned Gastroenterology Provider 07/18/23 Favian Mcknight MD [address] [place] [address] Dermatology 12/09/23 Favian Mcknight MD [address] [place] [address] 36845 Assigned Surgical Provider 01/29/24 Tatianna Horne [facility] [address] [place] [address] Assigned MTM Pharmacist 07/08/24 Lyudmila Baltazar, RN Home Infusion Rehabilitation Nurse 08/29/24 documented as of this encounter
--- OUTSIDE RECORDS SUMMARY | 2024-12-22 05:24 | XMS_ITS | Encounter Summary ---
Author Organization [place] Address [address] [place] [address] 10873 Care Team Providers Care Custom Tailor Apprentice Name Role Phone Sushant Schreiber MD Primary Care Provider No Ref-Primary, Physician Unavailable [phone] Cisco Caceres MD Unavailable [phone] Sabiha Hogan APRN, CNP Unavailable [phone] Yung Rodriguez MD Unavailable Tatianna Horne [facility] Unavailable Tatianna Horne [facility] Unavailable [phone] Billie Tucker RN Unavailable Unavailable Chantale Grande PA-C Unavailable [phone] Paul Sanford MD Unavailable [phone] Paul Sanford MD Unavailable [phone] Jt Waters MD Unavailable Jt Waters MD Unavailable Bhavik Segura PA-C Unavailable [phone] Paul Sanford MD Unavailable Favian Mcknight MD Unavailable [phone] Favian Mcknight MD Unavailable [phone] Tatianna Horne [facility] Unavailable Lyudmila Baltazar RN Unavailable Unavailabl e Encounter Details Date Type Department Care Team (Late Contact Info) Description 12/16/2022 MyC Medical Advice [facility] Specialty [address] [address] Coleen Tatianna Rojo, [address] [phone] Social History Tobacco Use Types Packs/Day Years [...] on file 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 No / Unsure 12/09/2022 2:55 PM COMMERCIAL INSTALLER documented as of this encounter Plan of Treatment Upcoming Encounters Date Type Department Care Team (Late Contact Info) Description 01/12/2025 10:00 AM COMMERCIAL INSTALLER Office Visit [facility] Gastroenterology Clinic [address] [place] [address] Paul Sanford MD [address] [place] [address] [phone] documented as of this encounter Visit Diagnoses Not on filedocumented in this encounter Care Teams Custom Tailor Apprentice Relationship Specialty Start Date End Date Sushant Schreiber MD [facility] [address] [place] [address] PCP - General Family Medicine 12/02/21 No Ref-Primary, Physician 12/02/21 Cisco Caceres MD [address] [place] [address] [facility] [address] [place] [address] Fellow Gastroenterology 12/09/21 Sabiha Hogan APRN ASSEMBLER [employer]IGHT[employer] [address] [facility] [place] [address] Assigned Heart and Vascular Provider 12/15/21 02/13/23 Yung Rodriguez MD [address] [place], [place] 749355 Cardiovascular Disease 12/25/21 [facility] [address] [place] [address] Pharmacist Pharmacist Composition Stone Applicator 02/06/22 [facility] [address] [place], [place] 935825 Assigned MTM Pharmacist 08/13/22 Billie Tucker, RN Specialty Shook Machine Operator Gastroenterology 12/10/22 Chantale Grande, [facility] [address] [place] [address] Physician Lvn Lpn Dermatology 12/25/22 01/13/23 Paul Sanford MD [address] [place], [place] 370485 Gastroenterology 12/25/22 Paul Sanford MD [address] [place], [place] 695825 Referring Physician Gastroenterology 01/14/23 Jt Waters MD 500 [place] [address] Dermatology 01/14/23 Jt Waters MD [address] [place] [address] Assigned Surgical Provider 01/17/23 01/28/24 Bhavik Segura PA-C [address] [place] [address] 594745 Physician Lvn Lpn Gastroenterology 04/28/23 Paul Sanford MD [address] [place] [address] Assigned Gastroenterology Provider 07/18/23 Favian Mcknight MD [address] [place] [address] [phone] Dermatology 12/09/23 Favian Mcknight MD [address] [place] [address] 42012 Assigned Surgical Provider 01/29/24 Tatianna Horne [facility] [address] [place] [address] [phone] Assigned MTM Pharmacist 07/08/24 Lyudmila Baltazar, RN Home Infusion Sash Maker 08/29/24 documented as of this encounter
--- OUTSIDE RECORDS SUMMARY | 2024-12-22 05:24 | XMS_ITS | Encounter Summary ---
Author Organization [facility] Address [address] [place] [address] Care Team Providers Care Ordnance Keeper Name Role Phone Sushant Schreiber MD Primary Care Provider [phone] No Ref-Primary, Physician Unavailable [phone] Cisco Caceres MD Unavailable [phone] Yung Rodriguez MD Unavailable Tatianna Horne [facility] Unavailable [phone] Billie Tucker RN Unavailable Unavailable Paul Sanford MD Unavailable [phone] Paul Sanford MD Unavailable [phone] Jt Waters MD Unavailable Bhavik Segura PA-C Unavailable [phone] Paul Sanford MD Unavailable [phone] Favian Mcknight MD Unavailable [phone] Favian Mcknight MD Unavailable [phone] Tatianna Horne [facility] Unavailable [phone] Lyudmila Baltazar RN Unavailable Unavailabl e Reason for Visit * Home Infusion Authorization (Routine) - Authorized Specialty Diagnoses / Procedures Referred By Contjohana t Referred To Contact Home Infusion and Injection Services [facility] [address] [place] [phone] Phone: tel: fax: Referral ID Status Reason Start Date Expiration Date V isits Requested Visits Authorized [id number] Authorized 07/21/2024 07/21/2025 1 1 Encounter Details Date Type Department Care Team (Late st Contact Info) Description 12/19/2024 1:00 PM GUIDANCE SECRETARY Home Care Visit [facility] [address] [place] [phone] Jonnie Mcfadden, RN Social History Tobacco [...] on file Legal 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 GUIDANCE SECRETARY Gender Identity Not on file Sexual Orientation Not on file documented as of this encounter Last Filed Vital Signs Vital Sign Reading Time Taken Comments Blood Pressure 124/75 12/19/2024 2:42 PM GUIDANCE SECRETARY Pulse 76 12/19/2024 2:42 PM GUIDANCE SECRETARY Temperature 36.7 C (98 F) 12/19/2024 2:42 PM GUIDANCE SECRETARY Respiratory Rate 16 12/19/2024 2:42 PM GUIDANCE SECRETARY Oxygen Saturation 98% 12/19/2024 2:42 PM GUIDANCE SECRETARY Inhaled Oxygen Concentration - - Weight 129.3 kg (285 lb) 12/19/2024 1:05 PM GUIDANCE SECRETARY Height 180.3 cm (5' 11) 12/19/2024 1:05 PM GUIDANCE SECRETARY Body Mass Index 39.75 12/19/2024 1:05 PM GUIDANCE SECRETARY documented in this encounter Progress Notes * Jonnie Mcfadden RN - 12/19/2024 1:33 PM CST Nursing Visit Note: Nurse visit today for [facility] infusion, labs and GA for Demetri Castillo. Semiconductor Wafers Tester present during visit today: Not Applicable. Intravenous [...] or cancer diagnosis? (i.e., Multiple Sclerosis, Guillain [place], seizures, neurological changes) Are you receiving any [...] before your next infusion, please call your care partner or triage nurse at your clinic to notify them so we can adequately serve you. and Lab-Only Nursing Note Labs obtained via PIV placed for infusion Time Specimen drawn: 1245 Last dose (if applicable): No [facility] Tr[facility] number: [id number] Note: A&Ox4 with VSS [...] service plan updated. Jonnie Mcfadden RN 12/19/2024 ANCE SECRETARY documented in this encounter Plan of Treatment Upcoming Encounters Date Type Department Care Team (Late st Contact Info) Description 01/12/2025 10:00 AM GUIDANCE SECRETARY Office Visit [facility] Gastroenterology Clinic [address] [place] [address] Paul Sanford MD [address] [place] [address] [phone] documented as of this encounter Visit Diagnoses Not on filedocumented in this encounter Care Teams Ordnance Keeper Relationship Specialty Start Date End Date Sushant Schreiber MD [facility] - [address] [address] PCP - General Family Medicine 12/02/21 No Ref-Primary, Physician 12/02/21 Cisco Caceres MD [address] [place] [address] 11492 Fellow Gastroenterology 12/09/21 Yung Rodriguez MD [address] [facility] [address] [place] [address] Cardiovascular Disease 12/25/21 Tatianna Horne, [facility] [address] [place] [address] 500505 Pharmacist Pharmacist Nutrition Intern 02/06/22 Billie Tucker, JANELL Specialty Pipeline Dispatcher Gastroenterology 12/10/22 Paul Sanford MD [address] [place] [address] 023615 Gastroenterology 12/25/22 Paul Sanford MD [address] [place] [address] 175045 Referring Physician Gastroenterology 01/14/23 Jt Waters MD [address] [place] [address] Dermatology 01/14/23 Bhavik Segura PA-C [address] [place] [address] [phone] Physician Eyelet Punch Operator Gastroenterology 04/28/23 Paul Sanford MD [address] [place] [address] 12843 Assigned Gastroenterology Provider 07/18/23 Favian Mcknight MD [address] [place] [address] MD Dermatology 12/09/23 Favian Mcknight MD [address] [place] [address] 32369 Assigned Surgical Provider 01/29/24 Tatianna Horne [facility] [address] [place] [address] 24865 Assigned MTM Pharmacist 07/08/24 Lyudmila Baltazar, RN Home Infusion Mortar Carrier 08/29/24 documented as of this encounter
--- OUTSIDE RECORDS SUMMARY | 2024-12-22 05:24 | XMS_ITS | Encounter Summary ---
Author Organization [place] Address [address] [place] [address] Care Team Providers Care Special Diet Cook Name Role Phone Sushant Schreiber MD Primary Care Provider No Ref-Primary, Physician Unavailable [phone] Cisco Caceres MD Unavailable [phone] Yung Rodriguez MD Unavailable Tatianna Horne [facility] Unavailable [phone] Billie Tucker RN Unavailable Unavailable Paul Sanford MD Unavailable [phone] Paul Sanford MD Unavailable [phone] Jt Waters MD Unavailable Bhavik Segura PA-C Unavailable [phone] Paul Sanford MD Unavailable [phone] Favian Mcknight MD Unavailable [phone] Favian Mcknight MD Unavailable [phone] Tatianna Horne [facility] Unavailable [phone] Lyudmila Baltazar RN Unavailable Unavailabl e Encounter Details Date Type Department Care Team (Late st Contact Info) Description 12/18/2024 [facility] [address] [facility] 2nd [place] [address] Tatianna Horne, [address] [address] Social History Tobacco Use Types Packs/Day Years [...] on file Legal 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 Gender Identity Not on file Sexual Orientation Not on file documented as of this encounter Plan of Treatment Upcoming Encounters Date Type Department Care Team (Late st Contact Info) Description 01/12/2025 10:00 AM 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 Office Visit [facility] Gastroenterology Clinic [address] [place] [phone] Paul Sanford MD [address] [place] [address] documented as of this encounter Visit Diagnoses Not on filedocumented in this encounter Care Teams Special Diet Cook Relationship Specialty Start Date End Date Sushant Schreiber MD [facility] [address] [place] [address] PCP - General Family Medicine 12/02/21 No Ref-Primary, Physician 12/02/21 Cisco Caceres MD [address] [place] [address] 284 [place] [address] Fellow Gastroenterology 12/09/21 Yung Rodriguez MD [address] [place] [address] Cardiovascular Disease 12/25/21 Tatianna Horne, [facility] [address] [place] [address] Pharmacist Pharmacist School Cafeteria Head Cook 02/06/22 Billie Tucker, RN Specialty Alto Singer Gastroenterology 12/10/22 Paul Sanford MD [address] [place] [address] 61316 Gastroenterology 12/25/22 Paul Sanford MD [address] [place] [address]608 Referring Physician Gastroenterology 01/14/23 Jt Waters MD [address] [place] [address] 647505 Dermatology 01/14/23 Bhavik Segura PA-C [address] [place] [address] 178265 Physician Unit Assembler Gastroenterology 04/28/23 Paul Sanford MD [address] [place] [address] Assigned Gastroenterology Provider 07/18/23 Favian Mcknight MD [address] [place] [address] 094685 Dermatology 12/09/23 Favian Mcknight MD [address] [place] [address] 75242 Assigned Surgical Provider 01/29/24 Tatianna Horne [facility] 9[address] [place] [address] Assigned MTM Pharmacist 07/08/24 Lyudmila Baltazar, RN Home Infusion Deck Builder 08/29/24 documented as of this encounter
--- OUTSIDE RECORDS SUMMARY | 2024-12-22 05:24 | XMS_ITS | Encounter Summary ---
Author Organization [facility] Address [address] [place] [address] Care Team Providers Care Staff Consultant Name Role Phone Sushant Schreiber MD Primary Care Provider No Ref-Primary, Physician Unavailable [phone] Cisco Caceres MD Unavailable [phone] Sabiha Hogan APRN, CNP Unavailable [phone] Yung Rodriguez MD Unavailable Tatianna Horne [facility] Unavailable Tatianna Horne [facility] Unavailable [phone] Billie Tucker RN Unavailable Unavailable Chantale Grande PA-C Unavailable [phone] Paul Sanford MD Unavailable [phone] Paul Sanford MD Unavailable [phone] Jt Waters MD Unavailable Jt Waters MD Unavailable Bhavik Segura PA-C Unavailable [phone] Paul Sanford MD Unavailable [phone] Favian Mcknight MD Unavailable [phone] Favian Mcknight MD Unavailable [phone] Tatianna Horne [facility] Unavailable Lyudmila Baltazar RN Unavailable Unavailabl e Encounter Details Date Type Department Care Team (Late st Contact Info) Description 11/24/2022 MyC Medical Advice [facility] Gastroenterology [address] [phone] Radhika Love MA Social History Tobacco Use [...] on file 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 Gender Identity Not on file Sexual Orientation Not on file documented as of this encounter Plan of Treatment Upcoming Encounters Date Type Department Care Team (Late Contact Info) Description 01/12/2025 10:00 AM BRAKE LINING DRILLER Office Visit [facility] Gastroenterology [address] [address] Paul Sanford MD [address] [place] [address] 711955 documented as of this encounter Visit Diagnoses Not on filedocumented in this encounter Care Teams Staff Consultant Relationship Specialty Start Date End Date Sushant Schreiber MD [facility] & [address] [address] PCP - General Family Medicine 12/02/21 No Ref-Primary, Physician 12/02/21 Cisco Caceres MD [address] [place] [address] Fellow Gastroenterology 12/09/21 Sabiha Hogan APRN SENIOR BIOINFORMATICS SCIENTIST [address] [place] [address] Assigned Heart and Vascular Provider 12/15/21 02/13/23 Yung Rodriguez MD [address] [place] [address] Cardiovascular Disease 12/25/21 Tatianna Horne [facility] 9[address] [place] [address] Pharmacist Pharmacist Radio Adjuster 02/06/22 [facility] 9 [place] [address] Assigned MTM Pharmacist 08/13/22 Billie Tucker, RN Specialty Cafe Cook Gastroenterology 12/10/22 Chantale Grande [facility] [address] [place] [address] Physician Tube Trailer Filler Dermatology 12/25/22 01/13/23 Paul Sanford MD 500 [place] [address] Gastroenterology 12/25/22 Paul Sanford MD [address] [place] [address] Referring Physician Gastroenterology 01/14/23 Jt Waters MD 500 [place] [address] Dermatology 01/14/23 Jt Wtaers MD [address] [place] [address] Assigned Surgical Provider 01/17/23 01/28/24 Bhavik Segura PA-C [address] [place] [address] Physician Tube Trailer Filler Gastroenterology 04/28/23 Paul Sanford MD [address] [place] [address] Assigned Gastroenterology Provider 07/18/23 Favian Mcknight MD [address] [place] [address] MD Dermatology 12/09/23 Favian Mcknight MD [address] [place] [address] 40492 Assigned Surgical Provider 01/29/24 Tatianna Horne [facility] [address] [place] [address] Assigned MTM Pharmacist 07/08/24 Lyudmila Baltazar, RN Home Infusion Power Wheelchair Mechanic 08/29/24 documented as of this encounter
--- OUTSIDE RECORDS SUMMARY | 2024-12-22 05:24 | XMS_ITS | Encounter Summary ---
Author Organization [facility] Address [address] [place] [address] Care Team Providers Care Evp Marketing Name Role Phone Sushant Schreiber MD Primary Care Provider No Ref-Primary, Physician Unavailable [phone] Cisco Caceres MD Unavailable [phone] Yung Rodriguez MD Unavailable Tatianna Horne [facility] Unavailable [phone] Billie Tucker RN Unavailable Unavailable Paul Sanford MD Unavailable [phone] Paul Sanford MD Unavailable [phone] Jt Waters MD Unavailable Jt Waters MD Unavailable Bhavik Segura PA-C Unavailable +[phone] Paul Sanford MD Unavailable [phone] Favian Mcknight MD Unavailable [phone] Favian Mcknight MD Unavailable +[phone] Tatianna Horne [facility] Unavailable [phone] Lyudmila Baltazar RN Unavailable Unavailabl e Encounter Details Date Type Department Care Team (Late st Contact Info) Description 09/15/2023 [facility] [place] [id number] [facility] 4th [place] [address] Mckenzie Velázquez RN Social History [...] on file 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 Gender Identity Not on file Sexual Orientation Not on file documented as of this encounter Plan of Treatment Upcoming Encounters Date Type Department Care Team (Late st Contact Info) Description 01/12/2025 10:00 AM SCIENTIFIC INFORMATICS PROJECT LEADER Office Visit [facility] [address] [phone] Paul Sanford MD [address] [place] [address] 909465 documented as of this encounter Visit Diagnoses Not on filedocumented in this encounter Care Teams Evp Marketing Relationship Specialty Start Date End Date Sushant Schreiber MD [facility] [place] [address] [place] [address] PCP - General Family Medicine 12/02/21 No Ref-Primary, Physician 12/02/21 Cisco Caceres MD [address] [place] [address] 284 [place], [place] 622935 Fellow Gastroenterology 12/09/21 Yung Rodriguez MD [address] [facility] [address] [place] [address] Cardiovascular Disease 12/25/21 [facility] [address] [place] [address] Pharmacist Pharmacist Chemistry Lab Instructor 02/06/22 Billie Tucker, RN Specialty Vegetable Farmworker Gastroenterology 12/10/22 Paul Sanford MD [address] [place] [address] Gastroenterology 12/25/22 Paul Sanford MD [address] [place] [address] Referring Physician Gastroenterology 01/14/23 Jt Waters MD [address] [place] [address] 698085 Dermatology 01/14/23 Jt Waters MD [address] [place] [address] 33774 Assigned Surgical Provider 01/17/23 01/28/24 Bhavik Segura PA-C [address] [place] [address] 590995 Physician Musical Instrument Mechanic Gastroenterology 04/28/23 Paul Sanford MD [address] [place] [address] Assigned Gastroenterology Provider 07/18/23 Favian Mcknight MD [address] [place] [address] Dermatology 12/09/23 Favian Mcknight MD [address] [place] [address]408 Assigned Surgical Provider 01/29/24 Tatianna Horne [facility] [address] [place] [address] Assigned MTM Pharmacist 07/08/24 Lyudmila Baltazar, RN Home Infusion Er Tech 08/29/24 documented as of this encounter
--- OUTSIDE RECORDS SUMMARY | 2024-12-22 05:24 | XMS_ITS | Encounter Summary ---
Author Organization [facility] Address [address] [place] [address] Care Team Providers Care Pulper Name Role Phone Sushant Schreiber MD Primary Care Provider No Ref-Primary, Physician Unavailable [phone] Cisco Caceres MD Unavailable [phone] Sabiha Hogan APRN, CNP Unavailable [phone] Yung Rodriguez MD Unavailable Tatianna Horne [facility] Unavailable Tatianna Horne [facility] Unavailable [phone] Billie Tucker RN Unavailable Unavailable [place] PA-C Unavailable [phone] Paul Sanford MD Unavailable [phone] Paul Sanford MD Unavailable [phone] Jt Waters MD Unavailable Jt Waters MD Unavailable Bhavik Segura PA-C Unavailable [phone] Paul Sanford MD Unavailable [phone] Favian Mcknight MD Unavailable [phone] Favian Mcknight MD Unavailable [phone] Tatianna Horne [facility] Unavailable Lyudmila Baltazar RN Unavailable Unavailabl e Encounter Details Date Type Department Care Team (Late Contact Info) Description 11/25/2022 MyC Medical Advice [facility] [address] [phone] Cisco Caceres MD [address] [place] [address] Social History Tobacco Use Types Packs/Day Years [...] on file 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 Gender Identity Not on file Sexual Orientation Not on file documented as of this encounter Plan of Treatment Upcoming Encounters Date Type Department Care Team (Late st Contact Info) Description 01/12/2025 10:00 AM DISPLAY DESIGNER Office Visit [facility] [address] [address] Paul Sanford MD [address] [place] [address] documented as of this encounter Visit Diagnoses Not on filedocumented in this encounter Care Teams Pulper Relationship Specialty Start Date End Date Sushant Schreiber MD [facility] [address] [place] [address] PCP - General Family Medicine 12/02/21 No Ref-Primary, Physician 12/02/21 Cisco Caceres MD [address] [place] [address] Fellow Gastroenterology 12/09/21 Sabiha Hogan APRN SAND POLISHER [address] [place], [place] 705405 Assigned Heart and Vascular Provider 12/15/21 02/13/23 Yung Rodriguez MD [address] [place] [address] Cardiovascular Disease 12/25/21 [facility] [address] [place] [address] Pharmacist Pharmacist Head Stock Transfer Clerk 02/06/22 [facility] [address] [place] [address] Assigned MTM Pharmacist 08/13/22 Billie Tucker, RN Specialty Mason Foreman/Superintendant Gastroenterology 12/10/22 Chantale Grande [facility] [address] [place] [address] Physician Bottom Cementer Dermatology 12/25/22 01/13/23 Paul Sanford MD 500 [place] [address] Gastroenterology 12/25/22 Paul Sanford MD 500 [place] [address] Referring Physician Gastroenterology 01/14/23 Jt Waters MD 500 [place] [address] Dermatology 01/14/23 Jt Waters MD 500 [place] [address] Assigned Surgical Provider 01/17/23 01/28/24 Bhavik Segura PA-C [address] [place] [address] Physician Bottom Cementer Gastroenterology 04/28/23 Paul Sanford MD [address] [place] [address] Assigned Gastroenterology Provider 07/18/23 Favian Mcknight MD [address] [place] [address] Dermatology 12/09/23 Favian Mcknight MD [address] [place] [address] 24594 Assigned Surgical Provider 01/29/24 Tatianna Horne, [facility] [address] [place] [address] 21277 Assigned MTM Pharmacist 07/08/24 Lyudmila Baltazar, RN Home Infusion Strong Nitric Operator 08/29/24 documented as of this encounter
--- OUTSIDE RECORDS SUMMARY | 2024-12-22 05:24 | XMS_ITS | Encounter Summary ---
Author Organization [facility] Address [address] [place] [address] Care Team Providers Care Student Truck Driver Name Role Phone Sushant Schreiber MD Primary Care Provider No Ref-Primary, Physician Unavailable [phone] Cisco Caceres MD Unavailable [phone] Sabiha Hogan APRN, CNP Unavailable [phone] Yung Rodriguez MD Unavailable Tatianna Horne [facility] Unavailable [phone] Tatianna Horne [facility] Unavailable [phone] Billie Tucker RN Unavailable Unavailable [place] PA-C Unavailable [phone] Paul Sanford MD Unavailable [phone] Paul Sanford MD Unavailable [phone] Jt Waters MD Unavailable Jt Waters MD Unavailable Bhavik Segura PA-C Unavailable [phone] Paul Sanford MD Unavailable Favian Mcknight MD Unavailable [phone] Favian Mcknight MD Unavailable [phone] Tatianna Horne [facility] Unavailable Lyudmila Baltazar RN Unavailable Unavailabl e Encounter Details Date Type Department Care Team (Late Contact Info) Description 12/10/2022 MyC Medical Advice [facility] G[facility]ology [facility] [address] [phone] Diony Drummond Social History Tobacco Use Types [...] on file Legal 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 No / Unsure 12/09/2022 2:55 PM MOVING WORKER documented as of this encounter Plan of Treatment Upcoming Encounters Date Type Department Care Team (Late st Contact Info) Description 01/12/2025 10:00 AM MOVING WORKER Office Visit [facility] [address] [address] Paul Sanford MD [address] [place] [address] documented as of this encounter Visit Diagnoses Not on filedocumented in this encounter Care Teams Student Truck Driver Relationship Specialty Start Date End Date Sushant Schreiber MD [facility] [address] [place] [address] PCP - General Family Medicine 12/02/21 No Ref-Primary, Physician 12/02/21 Cisco Caceres MD [address] [place] [address] Fellow Gastroenterology 12/09/21 Sabiha Hogan APRN PHOTOFINISHING LABORATORY WORKER [address] [place], [place] 434695 Assigned Heart and Vascular Provider 12/15/21 02/13/23 Yung Rodriguez MD [address] [place], [place] 948[address] Cardiovascular Disease 12/25/21 [facility] [address] [place] [address] Pharmacist Pharmacist Player Manager 02/06/22 [facility] [address] [place] [address] Assigned MTM Pharmacist 08/13/22 Billie Tucker, JANELL Specialty Internet Ecommerce Specialist Gastroenterology 12/10/22 Chantale Grande PA-C [address] [place], [place] 9687192 Physician Integrated Marketing Manager Dermatology 12/25/22 01/13/23 Paul Sanford MD 500 [place] [address] Gastroenterology 12/25/22 Paul Sanford MD 500 [place] [address] Referring Physician Gastroenterology 01/14/23 Jt Waters MD 500 [place] [address] Dermatology 01/14/23 Jt Waters MD 500 [place] [address] Assigned Surgical Provider 01/17/23 01/28/24 Bhavik Segura PA-C [address] [place] [address] Physician Integrated Marketing Manager Gastroenterology 04/28/23 Paul Sanford MD [address] [place] [address] Assigned Gastroenterology Provider 07/18/23 Favian Mcknight MD [address] [place] [address] Dermatology 12/09/23 Favian Mcknight MD [address] [place] [address] Assigned Surgical Provider 01/29/24 Tatianna Horne, [facility] [address] [place] [address] Assigned MTM Pharmacist 07/08/24 Lyudmila Baltazar, JANELL Home Infusion Feather Curling Machine Operator 08/29/24 documented as of this encounter
--- OUTSIDE RECORDS SUMMARY | 2024-12-22 05:24 | XMS_ITS | Encounter Summary ---
Author Organization [facility] Address [address] [place] [address] Care Team Providers Care Bottling Equipment Sales Representative Name Role Phone Sushant Schreiber MD Primary Care Provider No Ref-Primary, Physician Unavailable [phone] Cisco Caceres MD Unavailable [phone] Yung Rodriguez MD Unavailable Tatianna Horne [facility] Unavailable [phone] Billie Tucker RN Unavailable Unavailable Paul Sanford MD Unavailable [phone] Paul Sanford MD Unavailable [phone] Jt Waters MD Unavailable Bhavik Segura PA-C Unavailable [phone] Paul Sanford MD Unavailable [phone] Favian Mcknight MD Unavailable [phone] Favian Mcknight MD Unavailable [phone] Tatianna Horne [facility] Unavailable [phone] Lyudimla Baltazar RN Unavailable Unavailabl e Encounter Details Date Type Department Care Team (Late st Contact Info) Description 03/16/2024 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 Gender Identity Not on file Sexual Orientation Not on file documented as of this encounter Plan of Treatment Upcoming Encounters Date Type Department Care Team (Late st Contact Info) Description 01/12/2025 10:00 AM FIXED INCOME DIRECTOR Office Visit [facility]astro[facility]ology Clinic [address] [place] [phone] Paul Sanford MD [address] [place] [address] documented as of this encounter Visit Diagnoses Not on filedocumented in this encounter Care Teams Bottling Equipment Sales Representative Relationship Specialty Start Date End Date Sushant Schreiber MD [facility] [address] [place] [address] PCP - General Family Medicine 12/02/21 No Ref-Primary, Physician 12/02/21 Cisco Caceres MD [address] [place] [address] 284 [place] [address] Fellow Gastroenterology 12/09/21 Yung Rodriguez MD [address] [place] [address] Cardiovascular Disease 12/25/21 Tatianna Horne, [facility] [address] [place] [address] Pharmacist Pharmacist Bucket Pusher 02/06/22 Billie Tucker, RN Specialty Cam Milling Machine Operator Gastroenterology 12/10/22 Paul Sanford MD [address] [place] [address] Gastroenterology 12/25/22 Paul Sanford MD [address] [place] [address] Referring Physician Gastroenterology 01/14/23 Jt Waters MD [address] [place] [address] 017105 Dermatology 01/14/23 Bhavik Segura PA-C [address] [place] [address] 174675 Physician Demurrage Clerk Gastroenterology 04/28/23 Paul Sanford MD [address] [place] [address] Assigned Gastroenterology Provider 07/18/23 Favian Mcknight MD [address] [place] [address] 117815 Dermatology 12/09/23 Favian Mcknight MD [address] [place] [address] 26776 Assigned Surgical Provider 01/29/24 Tatianna Horne [facility] [address] [place] [address] Assigned MTM Pharmacist 07/08/24 Lyudmila Baltazar, RN Home Infusion Chief Engineer Research 08/29/24 documented as of this encounter
--- OUTSIDE RECORDS SUMMARY | 2024-12-22 05:24 | XMS_ITS | Encounter Summary ---
Author Organization [place] Address [address] [place] [address] Care Team Providers Care Lamination Builder Name Role Phone Sushant Schreiber MD Primary Care Provider [phone] No Ref-Primary, Physician Unavailable [phone] Cisco Caceres MD Unavailable [phone] Yung Rodriguez MD Unavailable Tatianna Horne [facility] Unavailable [phone] Billie Tucker RN Unavailable Unavailable Paul Sanford MD Unavailable [phone] Paul Sanford MD Unavailable [phone] Jt Waters MD Unavailable Jt Waters MD Unavailable Bhavik Segura PA-C Unavailable [phone] Paul Sanford MD Unavailable [phone] Favian Mcknight MD Unavailable [phone] Favian Mcknight MD Unavailable [phone] Tatianna Horne [facility] Unavailable [phone] Lyudmila Baltazar RN Unavailable Unavailabl e Encounter Details Date Type Department Care Team (Late st Contact Info) Description 09/11/2023 [facility] [address] 4th [place] [address] Billie Tucker RN Social History [...] on file 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 Gender Identity Not on file Sexual Orientation Not on file documented as of this encounter Plan of Treatment Upcoming Encounters Date Type Department Care Team (Late st Contact Info) Description 01/12/2025 10:00 AM MECHANICAL ENGINEERING TEACHER Office Visit [facility] [address] [place] [phone] Paul Sanford MD [address] [place] [address] 406425 documented as of this encounter Visit Diagnoses Not on filedocumented in this encounter Care Teams Lamination Builder Relationship Specialty Start Date End Date Sushant Schreiber MD [facility] [address] [place] [address] PCP - General Family Medicine 12/02/21 No Ref-Primary, Physician 12/02/21 Cisco Caceres MD [address] [place] [address] 284 [place], [place] 191425 Fellow Gastroenterology 12/09/21 Yung Rodriguez MD [address] [facility] [address] [place], [place] 904795 Cardiovascular Disease 12/25/21 Tatianna Horne, [facility] [address] [place] [address] Pharmacist Pharmacist Java Developer Consultant 02/06/22 Billie Tucker, RN Specialty Manager Administrative Services Gastroenterology 12/10/22 Paul Sanford MD [address] [place] [address] Gastroenterology 12/25/22 Paul Sanford MD [address] [place] [address] Referring Physician Gastroenterology 01/14/23 Jt Waters MD [address] [place] [address] 615515 Dermatology 01/14/23 Jt Waters MD [address] [place] [address] 42249 Assigned Surgical Provider 01/17/23 01/28/24 Bhavik Segura PA-C [address] [place] [address] 304375 Physician Track Vehicle Repairer Gastroenterology 04/28/23 Paul Sanford MD [address] [place] [address] 20435 Assigned Gastroenterology Provider 07/18/23 Favian Mcknight MD [address] [place] [address] 269[address] Dermatology 12/09/23 Favian Mcknight MD [address] [place] [address]197 Assigned Surgical Provider 01/29/24 Tatianna Horne [facility] 9 [place] [address] Assigned MTM Pharmacist 07/08/24 Lyudmila Baltazra, RN Home Infusion Smelter Liner 08/29/24 documented as of this encounter
--- OUTSIDE RECORDS SUMMARY | 2024-12-22 05:24 | XMS_ITS | Encounter Summary ---
Author Organization [facility] Address [address] [place] [address] 91483 Care Team Providers Care Mangle Tender Cloth Name Role Phone Sushant Schreiber MD Primary Care Provider No Ref-Primary, Physician Unavailable [phone] Cisco Caceres MD Unavailable [phone] Yung Rodriguez MD Unavailable Tatianna Horne [facility] Unavailable [phone] Billie Tucker RN Unavailable Unavailable Paul Sanford MD Unavailable [phone] Paul Sanford MD Unavailable [phone] Jt Waters MD Unavailable Jt Waters MD Unavailable Bhavik Segura PA-C Unavailable [phone] Paul Sanford MD Unavailable [phone] Favian Mcknight MD Unavailable [phone] Favian Mcknight MD Unavailable [phone] Tatianna Horne [facility] Unavailable [phone] Lyudmila Baltazar RN Unavailable Unavailabl e Encounter Details Date Type Department Care Team (Late st Contact Info) Description 09/16/2023 [facility] [address] 4th [place] [address] Billie Tucker RN Social History [...] on file 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 Gender Identity Not on file Sexual Orientation Not on file documented as of this encounter Plan of Treatment Upcoming Encounters Date Type Department Care Team (Late st Contact Info) Description 01/12/2025 10:00 AM COMMUNITY RELATIONS POLICE LIEUTENANT Office Visit [facility] Gastroenterology Clinic [address] [place] [phone] Paul Sanford MD [address] [place] [address] 531775 documented as of this encounter Visit Diagnoses Not on filedocumented in this encounter Care Teams Mangle Tender Cloth Relationship Specialty Start Date End Date Sushant Schreiber MD [facility] [address] [place] [address] PCP - General Family Medicine 12/02/21 No Ref-Primary, Physician 12/02/21 Cisco Caceres MD [address] [place] [address] 284 [place], [place] 544025 Fellow Gastroenterology 12/09/21 Yung Rodriguez MD [address] [facility] [address] [place], [place] 176585 Cardiovascular Disease 12/25/21 Tatianna Horne, [facility] [address] [place] [address] Pharmacist Pharmacist Assembler Dielectric Heater 02/06/22 Billie Tucker, RN Specialty Word Processor Gastroenterology 12/10/22 Paul Sanford MD [address] [place] [address] Gastroenterology 12/25/22 Paul Sanford MD [address] [place] [address] Referring Physician Gastroenterology 01/14/23 Jt Waters MD [address] [place] [address] 829335 Dermatology 01/14/23 Jt Waters MD [address] [place] [address] 09018 Assigned Surgical Provider 01/17/23 01/28/24 Bhavik Segura PA-C [address] [place] [address] 598415 Physician Hvac R Tech Gastroenterology 04/28/23 Paul Sanford MD [address] [place] [address] 255[address] Assigned Gastroenterology Provider 07/18/23 Favian Mcknight MD [address] [place] [address] Dermatology 12/09/23 Favian Mcknight MD [address] [place] [address] 19567 Assigned Surgical Provider 01/29/24 Tatianna Horne [facility] 9 [place] [address] Assigned MTM Pharmacist 07/08/24 Lyudmila Baltazar, RN Home Infusion Heater Mechanic 08/29/24 documented as of this encounter
--- OUTSIDE RECORDS SUMMARY | 2024-12-22 05:24 | XMS_ITS | Encounter Summary ---
Author Organization [place] Address [address] [place] [address] Care Team Providers Care Aperture Mask Etcher Name Role Phone Sushant Schreiber MD Primary Care Provider No Ref-Primary, Physician Unavailable [phone] Cisco Caceres MD Unavailable [phone] Sabiha Hogan APRN, CNP Unavailable [phone] Yung Rodriguez MD Unavailable Tatianna H[facility] Unavailable Tatianna H[facility] Unavailable [phone] Billie Tucker RN Unavailable Unavailable [place] PA-C Unavailable [phone] Paul Sanford MD Unavailable [phone] Paul Sanford MD Unavailable [phone] Jt Waters MD Unavailable Jt Waters MD Unavailable Bhavik Segura PA-C Unavailable [phone] Paul Sanford MD Unavailable Favian Mcknight MD Unavailable [phone] Favian Mcknight MD Unavailable [phone] Tatianna Horne [facility] Unavailable Lyudmila Baltazar RN Unavailable Unavailabl e Encounter Details Date Type Department Care Team (Late Contact Info) Description 10/08/2022 MyC Medical Advice [facility] Gastroenterology [address] [phone] Billie Tucker RN Social History Tobacco Use [...] file Legal 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 Gender Identity Not on file Sexual Orientation Not on file documented as of this encounter Plan of Treatment Upcoming Encounters Date Type Department Care Team (Late Contact Info) Description 01/12/2025 10:00 AM COMMUNITY DEVELOPMENT SPECIALIST Office Visit [facility] Gastroenterology [address] [address] Paul Sanford MD [address] [place] [address] [id number] documented as of this encounter Visit Diagnoses Not on filedocumented in this encounter Care Teams Aperture Mask Etcher Relationship Specialty Start Date End Date Sushant Schreiber MD [facility] & [address] [address] PCP - General Family Medicine 12/02/21 No Ref-Primary, Physician 12/02/21 Cisco Caceres MD [address] [place] [address] Fellow Gastroenterology 12/09/21 Sabiha Hogan APRN MARKETING ANALYTICS ANALYST [address] [place] [address] Assigned Heart and Vascular Provider 12/15/21 02/13/23 Yung Rodriguez MD [address] [place] [address] Cardiovascular Disease 12/25/21 Tatianna Horne [facility] [address] [place] [address] Pharmacist Pharmacist Stewardess Supervisor 02/06/22 Tatianna Horne [facility] [address] [place] [address] Assigned MTM Pharmacist 08/13/22 Billie Tucker, JANELL Specialty Customer Advisor Specialist Gastroenterology 12/10/22 Chantale Grande [facility] [address] [place] [address] Physician Visual Education Director Dermatology 12/25/22 01/13/23 Paul Sanford MD [address] [place] [address] Gastroenterology 12/25/22 Paul Sanford MD [address] [place] [address] Referring Physician Gastroenterology 01/14/23 Jt Waters MD [address] [place] [address] Dermatology 01/14/23 Jt Waters MD [address] [place] [address] Assigned Surgical Provider 01/17/23 01/28/24 Bhavik Segura PA-C [address] [place] [address] Physician Visual Education Director Gastroenterology 04/28/23 Paul Sanford MD [address] [place] [address] Assigned Gastroenterology Provider 07/18/23 Favian Mcknight MD [address] [place] [address] MD Dermatology 12/09/23 Favian Mcknight MD [address] [place] [address] Assigned Surgical Provider 01/29/24 Tatianna Horne [facility] [address] [place] [address] Assigned MTM Pharmacist 07/08/24 Lyudmila Baltazar, RN Home Infusion Glued Wood Tester 08/29/24 documented as of this encounter
--- OUTSIDE RECORDS SUMMARY | 2024-12-22 05:24 | XMS_ITS | Encounter Summary ---
Author Organization [place] Address [address] [place] [address] Care Team Providers Care Acrylic Fabricator Name Role Phone Sushant Schreiber MD Primary Care Provider [phone] No Ref-Primary, Physician Unavailable [phone] Cisco Caceres MD Unavailable [phone] Yung Rodriguez MD Unavailable Tatianna Horne [facility] Unavailable [phone] Billie Tucker RN Unavailable Unavailable Paul Sanford MD Unavailable [phone] Paul Sanford MD Unavailable [phone] Jt Waters MD Unavailable Bhavik Segura PA-C Unavailable [phone] Paul Sanford MD Unavailable [phone] Favian Mcknight MD Unavailable [phone] Favian Mcknight MD Unavailable [phone] Tatianna Horne [facility] Unavailable [phone] Lyudmila Baltazar RN Unavailable Unavailabl e Encounter Details Date Type Department Care Team (Late st Contact Info) Description 12/06/2024 MyC Medical Advice [address] [address] Denita Waddell LPN Social History [...] on file 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 Gender Identity Not on file Sexual Orientation Not on file documented as of this encounter Plan of Treatment Upcoming Encounters Date Type Department Care Team (Late st Contact Info) Description 01/12/2025 10:00 AM DIAMOND FINISHING SUPERVISOR Office Visit [facility] [address] [phone] Paul Sanford MD [address] [place] [address] [phone] documented as of this encounter Visit Diagnoses Not on filedocumented in this encounter Care Teams Acrylic Fabricator Relationship Specialty Start Date End Date Sushant Schreiber MD [facility] - [address] [address] PCP - General Family Medicine 12/02/21 No Ref-Primary, Physician 12/02/21 Cisco Caceres MD [address] [place] [address] 260225 Fellow Gastroenterology 12/09/21 Yung Rodriguez MD [address] [place], [place] 9[address] Cardiovascular Disease 12/25/21 Tatianna Horne, [facility] [address] [place] [address] Pharmacist Pharmacist Bus Starter 02/06/22 Billie Tucker, RN Specialty Medical Representative Gastroenterology 12/10/22 Paul Sanford MD [address] [place] [address] Gastroenterology 12/25/22 Paul Sanford MD [address] [place] [address] Referring Physician Gastroenterology 01/14/23 Jt Waters MD [address] [place] [address] Dermatology 01/14/23 Bhavik Segura PA-C [address] [place] [address] Physician Prototype Technician Gastroenterology 04/28/23 Paul Sanford MD [address] [place] [address] Assigned Gastroenterology Provider 07/18/23 Favian Mcknight MD [address] [place] [address] Dermatology 12/09/23 Favian Mcknight MD [address] [place] [address] Assigned Surgical Provider 01/29/24 Tatianna Horne, [facility] [address] [place] [address] Assigned MTM Pharmacist 07/08/24 Lyudmila Baltazar, RN Home Infusion Petroleum Laboratory Technician 08/29/24 documented as of this encounter
--- OUTSIDE RECORDS SUMMARY | 2024-12-22 05:24 | XMS_ITS | Clinical Summary ---
Author Organization [facility] Address [address] [place] [id number] Care Team Providers Care Biomedical Engineering Internship Name Role Phone Sushant Schreiber MD Primary Care Provider [phone] No Ref-Primary, Physician Unavailable [phone] Cisco Wooten MD Unavailable [phone] Yung Rodriguez MD Unavailable Tatianna Horne [facility] Unavailable [phone] Billie Tucker RN Unavailable Unavailable Megha Sanford MD Unavailable [phone] Megha Sanford MD Unavailable [phone] Jt Waters MD Unavailable Bhavik Segura PA-C Unavailable [phone] Megha Sanford MD Unavailable [phone] Favian Mcknight MD Unavailable [phone] Favian Mcknight MD Unavailable [phone] Tatianna Horne [facility] Unavailable [phone] Lyudmila Baltazar RN Unavailable Unavailabl e Allergies [...] with 20 mL NS to flush tubing. [id number] mL 5 9:32 AM ST[address]CAR MOTORMAN 11/14/20 24 2024 Active acetaminophen (TYLENOL) 325 MG tabletIndicatio ns:Crohn's disease of both small and large intestine with other complication (H) Take 2 tablets (650 mg) by mouth once every eight weeks. Administer 30 minutes prior to infusion 12 tablet 5 9:[address]MAN 11/14/20 24 2024 Active diphenhydrAMINE (BENADRYL) 25 MG capsuleIndicati ons:Crohn's disease of both small and large intestine with other complication (H) Take 2 capsules (50 mg) by mouth once every eight weeks. Administer 30 minutes prior to infusion 12 capsule 5 9:32 [address] MOT[address]MAN 11/14/20 24 2024 Active methylPREDNISol one Na Suc (PF) (solu-MEDROL) 40 mg in sodium chloride 0.9 % 4 mL injectionIndica tions:Crohn's disease of both small and large intestine with other complication (H) Inject 40 mg over 3-5 minutes into the vein via push once every eight weeks. Administer 30 minutes prior to infusion [id number] mL 5 9:32 [address] MOT[address]MAN 11/14/20 24 2024 Active sodium chloride, PF, 0.9% PF flushIndication s:Crohn's disease of both small and large intestine with other complication (H) Inject 10 mLs into the vein as needed for other (infusion reaction). For RN use only as needed for infusion reaction [id number] mL 11/14/20 24 2024 Active diphenhydrAMINE (BENADRYL) 50 MG/ML injectionIndica tions:Crohn's disease of both small and large intestine with other complication (H) Inject 1 mL (50 mg) over 3-5 minutes into the vein via push as needed for other (infusion reaction). For RN use only. Draw up in a syringe and administer IV push. Discard remainder of vial. [id number] mL 11/14/20 24 2024 Active EPINEPHrine (ANY [...] time in 5-15 minutes if symptoms persist. [id number] mL 11/14/20 24 2024 Active sodium chloride 0.9% infusionIndicat ions:Crohn's disease of both small and large intestine with other complication (H) Infuse 500 mLs into the vein as needed for other (infusion reaction). In case of mild reaction, administer via gravity at 20 mL/hr to keep vein open. In case of severe reaction, administer via gravity wide open on prime setting. [id number] mL 5 9:32 [address] MOT[address]MAN 11/14/20 24 2025 Active methylPREDNISol one Na Suc, PF, (SOLU-MEDROL) 125 mg/2 mL injectionIndica tions:Crohn's disease of both small and large intestine with other complication (H) Inject 2 mLs (125 mg) over 3-5 minutes into the vein via push as needed (infusion reaction). For RN use only. Reconstitute vial. Draw up methylPREDNISolone in a syringe and administer. Discard remainder of vial. [id number] mL 11/14/20 24 2024 Active sodium chloride, PF, 0.9% PF flushIndication s:Crohn's disease of both small and large intestine with other complication (H) Inject 10 mLs into the vein as needed for line flush. Flush IV before and after medication administration as directed and/or at least every 12 hours. [id number] mL 9:32 AM [address]CAR MOTORMAN 11/14/20 24 2024 Active Emergency Supply Kit, PIV,Indications :Crohn's disease of both small and large intestine with other complication (H) Patient use for emergency only. Contents: 3 sodium chloride 0.9% flushes, 1 IV start kit, 1 microclave ext set 14, 1 each IV Cath 22 G/1 and 24G/3/4, 6 alcohol prep pads, 4 nitrile gloves (med). Call to reorder. [id number] kit 11/14/20 24 2024 Active Active Problems Problem Noted Date Diagnosed Date Back injury 03/23/2023 Chronic left-sided low back pain without sciatic a 02/27/2022 Crohn's disease of both small and large intestin e 01/28/2022 Pericardial effusion 12/03/2021 CARDIOVASCULAR SCREENING; LDL GOAL LESS THAN 160 09/15/2010 Encounters Date Type Department Care Team Description 12/19/2024 1:00 [address] MOTORMAN Home Care Visit [facility] [address] [place] [address] Jonnie Mcfadden, JANELL 12/18/2024 MyC Medical Advice [facility] [place] [address] [facility] [address] [place] [address] Tatianna Horne RPH 12/06/2024 Telephone [facility] Gastro Procedure [place] [address] [place] [address] [address] [place] [address] Denita Waddell LPN 12/06/2024 MyC Medical Advice [address] [place] [address] Denita Waddell, SUMMER ANALYST 11/28/2024 MyC Medical Advice [address] [address] EstherDenita mehta, SUMMER ANALYST 11/17/2024 MyC Medical Advice [facility] Gastroenterology [address] [address] Billie Tucker, RN 11/17/2024 Telephone [facility] Gastroenterology [address] [address] Paula Jane PA-C Appointment 11/14/2024 Telephone [facility]astroenterology [address] [phone] Paula Jane PA-C Appointment 11/14/2024 Telephone [facility]astroenterology [address] [phone] Billie Tucker, JANELL 11/03/2024 MyC Medical Advice [facility] Gastroenterology [address] [phone] Allison Steward 11/03/2024 Telephone [facility] Gastroenterology [address] [phone] Allison Steward 10/27/2024 Home Infusion [facility] [address] [place] [address] Navjot Mantilla, [facility] Crohn's disease of both small and large intestine with other complication (H) 10/24/2024 12:00 [address] MOTORMAN Home Care Visit [facility] [address] [place] [address] Lyudmila Baltazar, RN from Last [...] on file Legal 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 [address]CAR MOTORMAN Gender Identity Not on file Sexual Orientation Not on file Last Filed Vital Signs Vital Sign Reading Time Taken Comments Blood Pressure 124/75 12/19/2024 2:42 PM [address] MOTORMAN Pulse 76 12/19/2024 2:42 PM [address]CAR MOTORMAN Temperature 36.7 C (98 F) 12/19/2024 2:42 PM [address] MOTORMAN Respiratory Rate 16 12/19/2024 2:42 PM [address]CAR MOTORMAN Oxygen Saturation 98% 12/19/2024 2:42 PM [address] MOTORMAN Inhaled Oxygen Concentration - - Weight 129.3 kg (285 lb) 12/19/2024 1:05 PM [address]CAR MOTORMAN Height 180.3 cm (5' 11) 12/19/2024 1:05 PM [address]CAR MOTORMAN Body Mass Index 39.75 12/19/2024 1:05 PM [address] MOTORMAN Plan of Treatment Upcoming Encounters Date Type Department Care Team (Late st Contact Info) Description 01/12/2025 10:00 AM [address]CAR MOTORMAN Office Visit [facility] [address] [address] Megha Sanford MD [address] [place] [address] Health Maintenance Due Date Last Done Comments [...] PLATELETS & DIFFERENTIAL Routine 12/19/2024 12:45 [address] MOT[address]MAN Crohn's disease of both small and large intestine without complications (H) EXTRA RED TOP TUBE (LAB USE ONLY) Routine 12/19/2024 12:45 [address] MOT[address]MAN Crohn's disease of both small and large intestine without complications (H) EXTRA RED TOP TUBE (LAB USE ONLY) Routine 12/19/2024 12:45 [address] MOT[address]MAN Crohn's disease of both small and large intestine without complications (H) EXTRA SERUM SEPARATOR TUBE (SST) (LAB USE ONLY) Routine 12/19/2024 12:45 [address] MOT[address]MAN Crohn's disease of both small and large intestine without complications (H) EXTRA SERUM SEPARATOR TUBE (SST) (LAB USE ONLY) Routine 12/19/2024 12:45 [address] MOT[address]MAN Crohn's disease of both small and large intestine without complications (H) CBC WITH PLATELETS AND DIFFERENTIAL Routine 12/19/2024 12:45 [address] MOT[address]MAN Crohn's disease of both small and large intestine without complications (H) VITAMIN B12 Routine 12/19/2024 12:45 [address] MOT[address]MAN Crohn's disease of both small and large intestine without complications (H) CRP INFLAMMATION Routine 12/19/2024 12:4 5 [address]CAR MOTORMAN Crohn's disease of both small and large intestine without complications (H) HEPATIC FUNCTION PANEL Routine 12/19/2024 12:45 [address] MOT[address]MAN Crohn's disease of both small and large intestine without complications (H) HIV ANTIGEN ANTIBODY COMBO Add-On 01/20/2024 10:09 [address] MOT[address]MAN Crohn's disease of small intestine with abscess (H) High risk medication use HEPATITIS C ANTIBODY Add-On 01/20/2024 10:09 [address] MOT[address]MAN Crohn's disease of small intestine with abscess (H) High risk medication use BASIC METABOLIC PANEL Routine 12/08/2023 4:39 [address] MOT[address]MAN Arthralgia, unspecified joint High risk medication use CRP elevated COLONOSCOPY Routine 09/29/2023 9:29 [address]CAR MOTORMAN from Last 3 Months or Most Recently Relevant to Health Maintenance Results * (ABNORMAL) CBC with platelets and differential (12/19/2024 12:45 PM [address]CAR MOTORMAN) [facility] WBC Count 9.2 4.0 - 11.0 10e3/uL 12/19/2024 4:33 PM [address]CAR MOTORMAN [facility] RBC Count 4.23(L) 4.40 - 5.90 10e6/uL 12/19/2024 4:33 PM [address]CAR MOTORMAN [facility] Hemoglobin 14.8 13.3 - 17.7 g/dL 12/19/2024 4:33 PM [address]CAR MOTORMAN [facility] Hematocrit 40.6 40.0 - 53.0 % 12/19/2024 4:33 PM [address] MOTORMAN [facility] MCV 96 78 - 100 fL 12/19/2024 4:33 PM [address]CAR MOTORMAN [facility] MCH 35.0(H) 26.5 - 33.0 pg 12/19/2024 4:33 PM [address] MOTORMAN [facility] MCHC 36.5 31.5 - 36.5 g/dL 12/19/2024 4:33 PM [address] MOTORMAN [facility] RDW 12.6 10.0 - 15.0 % 12/19/2024 4:33 PM [address] MOTORMAN [facility] Platelet Count 239 150 - 450 10e3/uL 12/19/2024 4:33 PM [address] MOTORMAN [facility] % Neutrophils 65 % 12/19/2024 4:33 PM [address]CAR MOTORMAN [facility] % Lymphocytes 25 % 12/19/2024 4:33 PM [address]CAR MOTORMAN [facility] % Monocytes 7 % 12/19/2024 4:33 PM [address]CAR MOTORMAN [facility] % Eosinophils 1 % 12/19/2024 4:33 PM [address]CAR MOTORMAN [facility] % Basophils 1 % 12/19/2024 4:33 PM [address]CAR MOTORMAN [facility] % Immature Granulocytes 0 % 12/19/2024 4:33 PM [address]CAR MOTORMAN [facility] NRBCs per 100 WBC 0 <1 /100 025 4:33 PM [address]CAR MOTORMAN [facility] Absolute Neutrophils 6.0 1.6 - 8.3 10e3/uL 12/19/2024 4:33 PM [address]CAR MOTORMAN [facility] Absolute Lymphocytes 2.3 0.8 - 5.3 10e3/uL 12/19/2024 4:33 PM [address]CAR MOTORMAN [facility] Absolute Monocytes 0.7 0.0 - 1.3 10e3/uL 12/19/2024 4:33 PM [address]CAR MOTORMAN [facility] Absolute Eosinophils 0.1 0.0 - 0.7 10e3/uL 12/19/2024 4:33 PM [address]CAR MOTORMAN [facility] Absolute Basophils 0.1 0.0 - 0.2 10e3/uL 12/19/2024 4:33 PM [address]CAR MOTORMAN [facility] Absolute Immature Granulocytes 0.0 <=0.4 10e3/uL 12/19/2024 4:33 PM [address] MOTORMAN [facility] Absolute NRBCs 0.0 10e3/uL 12/19/2024 4:33 PM [address]CAR MOTORMAN [facility] Blood BLOOD SPECIMEN / Unknown Client Draw / Unknown 12/19/2024 12:45 [address] MOT[address]MAN 12/19/2024 4:19 PM STRE[address]CAR MOTORMAN us Megha Sanford MD LAB - BLOOD ORDERABLE S Final Result LABORATORY [facility] [place] [facility] [address] [facility], [address] [phone] * Extra SST Tube (LAB USE ONLY) (12/19/2024 12:45 PM [address]CAR MOTORMAN) Only the most recent of2 resultswithin the time period is included. Hold Specimen [facility] 12/19/2024 5:31 [address] MOTORMAN LABORATORY Blood BLOOD SPECIMEN / Unknown Client Draw / Unknown 12/19/2024 12:45 [address] MOT[address]MAN 12/19/2024 4:19 PM [address]CAR MOTORMAN us Megha Sanford MD LAB - BLOOD ORDERABLE S Final Result Performing Organization Address City/[facility]/ZIP Co de Phone Number [facility]ATORY [facility] [place] [facility] [address] [facility], [address] [phone] * Extra Red Top Tube (LAB USE ONLY) (12/19/2024 12:45 PM [address]CAR MOTORMAN) Only the most recent of2 resultswithin the time period is included. Hold Specimen [facility] 12/19/2024 5:31 [address] MOTORMAN LABORATORY Blood BLOOD SPECIMEN / Unknown Client Draw / Unknown 12/19/2024 12:45 [address] MOT[address]MAN 12/19/2024 4:19 PM [address]CAR MOTORMAN us Megha Sanford MD LAB - BLOOD ORDERABLE S Final Result [facility] [place] [facility] [address] [facility], [address] [place] [address] * Hepatic function panel (12/19/2024 12:45 PM [address]CAR MOTORMAN) Pathologist [facility] Protein Total 7.4 6.4 - 8.3 g/dL 12/19/2024 5:26 [address] MOTORMAN [facility] Albumin 4.3 3.5 - 5.2 g/dL 12/19/2024 5:26 PM [address] MOTORMAN [facility] Bilirubin Total 0.3 <=1.2 mg/dL 12/19/2024 5:26 PM [address]CAR MOTORMAN [facility] Alkaline Phosphatase 120 40 - 150 U/L 12/19/2024 5:26 PM [address] MOTORMAN [facility] AST 34 0 - 45 U/L 12/19/2024 5:26 PM [address]CAR MOTORMAN [facility] ALT 41 0 - 70 U/L 12/19/2024 5:26 PM [address] MOTORMAN [facility] Bilirubin Direct <0.20 0.00 - 0.30 mg/dL 12/19/2024 5:26 [address] MOTORMAN [facility] Blood BLOOD SPECIMEN / Unknown Client Draw / Unknown 12/19/2024 12:45 [address] MOT[address]MAN 12/19/2024 4:19 PM STRE[address]CAR MOTORMAN us Megha Sanford MD LAB - BLOOD ORDERABLE S Final Result [facility] [address] [facility], [address] * (ABNORMAL) CRP inflammation (12/19/2024 12:45 [address] MOTORMAN) [facility] CRP Inflammation 6.26(H) <5.00 mg/L 12/19/2024 5:26 PM [address] MOTORMAN [facility] Blood BLOOD SPECIMEN / Unknown Client Draw / Unknown 12/19/2024 12:45 [address] MOTORMAN 12/19/2024 4:19 PM [address]CAR MOTORMAN us Megha Sanford MD LAB - BLOOD ORDERABLE S Final Result [facility] [place] [facility] [address] [facility], [address] [place] [address] * Vitamin B12 (12/19/2024 12:45 PM [address] MOTORMAN) Pathologist [facility] Vitamin B12 521 232 - 1,245 pg/mL 12/19/2024 5:26 [address] MOT[address]MAN [facility] Blood BLOOD SPECIMEN / Unknown Client Draw / Unknown 12/19/2024 12:45 [address] MOT[address]MAN 12/19/2024 4:19 PM [address]CAR MOTORMAN Megha Sanford MD LAB - BLOOD ORDERABLE S Final Result Performing Organization Address [facility]/ZIP Co de Phone Number U LABORATORY [facility] [place] [facility] [address] [facility], [address] [phone] * HIV Antigen Antibody Combo Lolita (01/20/2024 10:09 [address] MOTORMAN) [facility] HIV Antigen Antibody Combo Nonreactive Nonreactive 01/20/2024 10:07 PM [address] MOTORMAN [facility] Comment:Negative HIV-1/-2 an tigen and antibody screening test results usually indicate the absence of HIV-1 and HIV-2 infection. However, such negative results do not rule-out acute HIV infection. If acute HIV-1 or HIV-2 infection is suspected, detection of HIV-1 or HIV-2 RNA is recommended. Blood STRUCTURE OF RIGHT UPPER LIMB / Unknown Venipuncture / Unknown 01/20/2024 10:09 [address] MOT[address]MAN 01/20/2024 10:09 AM [address]CAR MOTORMAN Miguel Stoll MD LAB - BLOOD ORDERABLES Fi nal Result U LAB[facility]ATORY [facility] [place] [facility] [address] [facility], [address] [phone] [phone] * Hepatitis C antibody (01/20/2024 10:09 [address] MOTORMAN) [facility] Hepatitis C Antibody Nonreactive Nonreactive 01/20/2024 10:28 [address] MOT[address]MAN [facility] Comment:A nonreactive screen ing test [...] Unknown Venipuncture / Unknown 01/20/2024 10:09 [address] MOTORMAN 01/20/2024 10:09 AM [address]CAR MOTORMAN us Miguel Stoll MD LAB - BLOOD ORDERABLES Fi nal Result [facility] [place] [facility] [address] [facility], [address] [phone], [facility] [phone] * (ABNORMAL) Basic metabolic panel (12/08/2023 4:39 [address] MOTORMAN) [facility] Sodium 139 135 - 145 mmol/L 12/08/2023 5:06 PM [facility] Comment:Reference intervals for this test were updated on 08/11/2023 to more accurately reflect our healthy population. There may be differences in the flagging of prior results with similar values performed with this method. Interpretation of those prior results can be made in the context of the updated reference intervals. Potassium 3.7 3.4 - 5.3 mmol/L 12/08/2023 5:06 PM [facility] Chloride 102 98 - 107 mmol/L 12/08/2023 5:06 PM [facility] Carbon Dioxide (CO2) 28 22 - 29 mmol/L 12/08/2023 5:06 PM [facility] Anion Gap 9 7 - 15 mmol/L 12/08/2023 5:06 PM [facility] Urea Nitrogen 13.7 6.0 - 20.0 mg/dL 12/08/2023 5:06 PM [facility] Creatinine 0.87 0.67 - 1.17 mg/dL 12/08/2023 5:06 PM [facility] GFR Estimate >90 >60 mL/min/1. 73m2 12/08/2023 5:06 [address] MOT[address]MAN [facility] Calcium 9.3 8.6 - 10.0 mg/dL 12/08/2023 5:06 [address] MOT[address]MAN [facility] - [facility] Glucose 108(H) 70 - 99 mg/dL 12/08/2023 5:[address]MAN [facility] Blood STRUCTURE OF LEFT UPPER LIMB / Unknown Venipuncture / Unknown 12/08/2023 4:39 [address] MOT[address]MAN 12/08/2023 4:39 PM [address]CAR MOTORMAN us Megha Sanford MD LAB - BLOOD ORDERABLE S Final Result [facility] - [facility] [address] [place] [address] * COLONOSCOPY (09/29/2023 9:29 [address] MOTORMAN) [facility] COLONOSCOPY [facility] [address] [place] [address] [phone] Endoscopy Department Patient Name: Demetri Castillo Procedure Date: 09/29/2023 9:29 AM Date of : 1990 Admit Type: Outpatient Age: 33 Room: [facility] PROCEDURE ROOM 02 Gender: Male Note Status: [...] 12:00:16 PM RADIOLOGY RESULTS 09/29/2023 9:[address]MAN us Megha Sanford MD PROCEDURES Final Result RADIOLOGY RESULTS from Last 3 Months or Most Recently Relevant to Health Maintenance [place] [place] [address] [email or web address] [place] [email or web address] Member Subscriber Plan / Payer (Ef fective 2022-Present) Name:Demetri Castillo Relation to Subscriber:Self Name:Demetri Castillo Payer ID:[id number] (NAIC) Type:PPO Address: [facility] [id number] [place] [id number] [facility] * Guarantor: Demetri Castillo Account Type Relation to Patient Date of Phone Billing Address Medication Therapy Self [address] [place] [id number] [employer] Advance Directives For more information, please contact: [phone] * Full Code (Latest Code Status on [...] patie nt/ legal decision maker Care Teams Biomedical Engineering Internship Relationship Specialty Start Date End Date Sushant Schreiber MD [address] [address] PCP - General Family Medicine 12/02/21 No Ref-Primary, Physician 12/02/21 Cisco Wooten MD [address] [place] [address] [phone] Fellow Gastroenterology 12/09/21 Yung Rodriguez MD [address] [facility] [address] [place] [address] [phone] Cardiovascular Disease 12/25/21 Tatianna Horne [facility] [address] [place] [address] [phone] Pharmacist Pharmacist Application Systems Engineer 02/06/22 Billie Tucker, RN Specialty Education Intern Gastroenterology 12/10/22 Megha Sanford MD [address] [place] [address] Gastroenterology 12/25/22 Megha Sanford MD [address] [place] [address] Referring Physician Gastroenterology 01/14/23 tJ Waters MD [address] [place] [address] [phone] Dermatology 01/14/23 Bhavik Segura PA-C [address] [place] [address] [phone] Physician Public Events Facilities Rental Manager Gastroenterology 04/28/23 Megha Sanford MD [address] [place] [address] [phone] Assigned Gastroenterology Provider 07/18/23 Favian Mcknight MD [address] [place] [address] [phone] Dermatology 12/09/23 Favian Mcknight MD [address] [place] [address] [phone] Assigned Surgical Provider 01/29/24 Tatianna Horne, [facility] [address] [place] [address] [phone] Assigned MTM Pharmacist 07/08/24 Lyudmila Baltazar, RN Home Infusion Metal Inspector 08/29/24
--- OUTSIDE RECORDS SUMMARY | 2024-12-22 05:24 | XMS_ITS | Encounter Summary ---
Author Organization [place] Address [address] [place] [address] Care Team Providers Care Clinical Research Nurse Coordinator Name Role Phone Sushant Schreiber MD Primary Care Provider No Ref-Primary, Physician Unavailable [phone] Cisco Caceres MD Unavailable [phone] Yung Rodriguez MD Unavailable Tatianna Horne [facility] Unavailable [phone] Billie Tucker RN Unavailable Unavailable Paul Sanford MD Unavailable [phone] Paul Sanford MD Unavailable +[phone] Jt Waters MD Unavailable Jt Waters MD Unavailable Bhavik Segura PA-C Unavailable +[phone] Paul Sanford MD Unavailable +[phone]- [phone] Favian Mcknight MD Unavailable [phone] Favian Mcknight MD Unavailable [phone] Tatianna Horne [facility] Unavailable [phone] Lyudmila Baltazar RN Unavailable Unavailabl e Encounter Details Date Type Department Care Team (Late st Contact Info) Description 11/13/2023 [facility] [address] 4th [place] [address] Mckenzie Lim RN Social History [...] on file 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 Gender Identity Not on file Sexual Orientation Not on file documented as of this encounter Plan of Treatment Upcoming Encounters Date Type Department Care Team (Late st Contact Info) Description 01/12/2025 10:00 AM SUBWAREHOUSE SUPERVISOR Office Visit [facility] Clinic [address] [phone] Paul Sanford MD [address] [place] [address] 130125 documented as of this encounter Visit Diagnoses Not on filedocumented in this encounter Care Teams Clinical Research Nurse Coordinator Relationship Specialty Start Date End Date Sushant Schreiber MD [facility] [address] [place] [address] PCP - General Family Medicine 12/02/21 No Ref-Primary, Physician 12/02/21 Cisco Caceres MD [address] [place] [address] 284 [place], [place] 761225 Fellow Gastroenterology 12/09/21 Yung Rodriguez MD [address] [facility] [address] [place] [address] Cardiovascular Disease 12/25/21 [facility] [address] [place] [address] Pharmacist Pharmacist Private Wealth Advisor 02/06/22 Billie Tucker, RN Specialty Associate Professor Of Anthropology Gastroenterology 12/10/22 Paul Sanford MD [address] [place] [address] Gastroenterology 12/25/22 Paul Sanford MD [address] [place] [address] 66623 Referring Physician Gastroenterology 01/14/23 Jt Waters MD [address] [place] [address] 878105 Dermatology 01/14/23 Jt Waters MD [address] [place] [address] 47634 Assigned Surgical Provider 01/17/23 01/28/24 Bhavik Segura PA-C [address] [place] [address] 396315 Physician International Affairs Vice President Gastroenterology 04/28/23 Paul Sanford MD [address] [place] [address] Assigned Gastroenterology Provider 07/18/23 Favian Mcknight MD [address] [place] [address] Dermatology 12/09/23 Favian Mcknight MD [address] [place] [address] 43860 Assigned Surgical Provider 01/29/24 Tatianna Horne [facility] [address] [place] [address] Assigned MTM Pharmacist 07/08/24 Lyudmila Baltazar, RN Home Infusion Range Mechanic 08/29/24 documented as of this encounter
--- OUTSIDE RECORDS SUMMARY | 2024-12-22 05:24 | XMS_ITS | Encounter Summary ---
Author Organization [place] Address [address] [place] [address] Care Team Providers Care Home Connect Lpn Name Role Phone Sushant Schreiber MD Primary Care Provider [phone] No Ref-Primary, Physician Unavailable [phone] Cisco Caceres MD Unavailable [phone] Yung Rodriguez MD Unavailable Tatianna Horne [facility] Unavailable +[phone] Billie Tucker RN Unavailable Unavailable Paul Sanford MD Unavailable +[phone] Paul Sanford MD Unavailable +[phone] Jt Waters MD Unavailable Jt Waters MD Unavailable Bhavik Segura PA-C Unavailable +[phone] Paul Sanford MD Unavailable [phone] Favian Mcknight MD Unavailable [phone] Favian Mcknight MD Unavailable [phone] Tatianna Horne [facility] Unavailable [phone] Lyudmila Baltazar RN Unavailable Unavailabl e Encounter Details Date Type Department Care Team (Late st Contact Info) Description 11/13/2023 [facility] Clinic [address] 4th [place] [address] Mckenzie Lim RN Social History [...] on file 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 Gender Identity Not on file Sexual Orientation Not on file documented as of this encounter Plan of Treatment Upcoming Encounters Date Type Department Care Team (Late st Contact Info) Description 01/12/2025 10:00 AM SOLAR PHOTOVOLTAIC DESIGNER Office Visit [facility] Gastroenterology Clinic [address] [phone] Paul Sanford MD [address] [place] [address] 176195 documented as of this encounter Visit Diagnoses Not on filedocumented in this encounter Care Teams Home Connect Lpn Relationship Specialty Start Date End Date Sushant Schreiber MD [facility] [address] [place] [address] PCP - General Family Medicine 12/02/21 No Ref-Primary, Physician 12/02/21 Cisco Caceres MD [address] [place] [address] 284 [place], [place] 746725 Fellow Gastroenterology 12/09/21 Yung Rodriguez MD [address] [facility] [address] [place] [address] Cardiovascular Disease 12/25/21 [facility] [address] [place] [address] Pharmacist Pharmacist Bread Stacker 02/06/22 Billie Tucker, RN Specialty Supervisor Soakers Gastroenterology 12/10/22 Paul Sanford MD [address] [place] [address] Gastroenterology 12/25/22 Paul Sanford MD [address] [place] [address]644 Referring Physician Gastroenterology 01/14/23 Jt Waters MD [address] [place] [address] 650675 Dermatology 01/14/23 Jt Waters MD [address] [place] [address] 75136 Assigned Surgical Provider 01/17/23 01/28/24 Bhavik Segura PA-C [address] [place] [address] 512735 Physician Treasury Manager Gastroenterology 04/28/23 Paul Sanford MD [address] [place] [address] 90[address] Assigned Gastroenterology Provider 07/18/23 Favian Mcknight MD [address] [place] [address] Dermatology 12/09/23 Favian Mcknight MD [address] [place] [address]84 Assigned Surgical Provider 01/29/24 Tatianna Horne [facility] [address] [place] [address] Assigned MTM Pharmacist 07/08/24 Lyudmila Baltazar, RN Home Infusion Medical Tech 08/29/24 documented as of this encounter
--- OUTSIDE RECORDS SUMMARY | 2024-12-22 05:24 | XMS_ITS | Clinical Summary ---
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 Gender Identity Not on file Sexual [...] this topic Medical Devices Implanted Type Area Baggage Checker Device Identifier Shelf Expiration Date Model / Serial / Lot Dura Neuro 1xin Duragen Usha - [id number] Implanted:Qty: 1 on 04/21/2022 by Tadeo Calles MD at [facility] daPulse Dilcia 01/13/2025 [id number] / / [id number] Procedures Procedure Name Priority Date/Time Associated Diagnosis [...] alma Non-React alma 08/16/2021 7:39 PM CDT [facility] Comment:Antibodies to HCV no t detected; does not exclude the possibility of exposure to HCV. Blood BLOOD SPECIMEN / Unknown Butterfly / Unknown 08/16/2021 11:49 AM CDT 08/16/2021 12:15 PM CDT us Kaity Villatoro DO SEND OUTS Final Resul t [facility] [address] [place] [address], * ANTI HIV 1/2 (06/29/2020 2:53 PM CDT) HIV-1/HIV-2 ANTIBODY Non-Reacti ve Non-Reacti ve 06/29/2020 8:44 PM CDT [facility] Comment:HIV-1 p24 and HIV-1/ HIV-2 Ab not detected. Blood BLOOD SPECIMEN / Unknown Venipuncture / Unknown 06/29/2020 2:53 PM CDT 06/29/2020 2:53 PM CDT us Vinicio Teresa MD SEND OUTS Final Res ult [facility] [address] [place] [address], [place] from Last 3 Months or Most Recently Relevant to Health Maintenance Insurance [employer] Advance Directives * Full Code (Latest Code Status on File) Date Activated Date Inactivated Comments 05/15/2022 7:03 PM 05/17/2022 4:29 PM Question Answer Comments Code Status Discussion: Reviewed Preferences Care Teams Ager Tender Relationship Specialty Start Date End Date Sushant Schreiber MD [address] [place] [address] PCP - General Family Practice 06/29/20
--- OUTSIDE RECORDS SUMMARY | 2024-12-22 05:24 | XMS_ITS | Encounter Summary ---
Author Organization [place] Address [address] [place] [address] Care Team Providers Care Journalist Name Role Phone Sushant Schreiber MD Primary Care Provider [phone] No Ref-Primary, Physician Unavailable [phone] Cisco Caceres MD Unavailable [phone] Yung Rodriguez MD Unavailable Tatianna Horne [facility] Unavailable [phone] Billie Tucker RN Unavailable Unavailable Paul Sanford MD Unavailable [phone] Paul Sanford MD Unavailable [phone] Jt Waters MD Unavailable Bhavik Segura PA-C Unavailable +[phone] Paul Sanford MD Unavailable [phone] Favian Mcknight MD Unavailable [phone] Favian Mcknight MD Unavailable [phone] Tatianna Horne [facility] Unavailable [phone] Lyudmila Baltazar RN Unavailable Unavailabl e Encounter Details Date Type Department Care Team (Late st Contact Info) Description 11/28/2024 [facility] [address] [address] Denita Waddell LPN Social History [...] on file 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 Gender Identity Not on file Sexual Orientation Not on file documented as of this encounter Plan of Treatment Upcoming Encounters Date Type Department Care Team (Late st Contact Info) Description 01/12/2025 10:00 AM STORE STOCKER Office Visit [facility] Gastroenterology Clinic [address] [phone] Paul Sanford MD [address] [place] [address] 336475 documented as of this encounter Visit Diagnoses Not on filedocumented in this encounter Care Teams Journalist Relationship Specialty Start Date End Date Sushant Schreiber MD [facility] [address] [address] PCP - General Family Medicine 12/02/21 No Ref-Primary, Physician 12/02/21 Cisco Caceres MD [address] [place] [address] 800525 Fellow Gastroenterology 12/09/21 Yung Rodriguez MD [address] [place], [place] 701315 Cardiovascular Disease 12/25/21 Tatianna Horne, [facility] [address] [place] [address] Pharmacist Pharmacist Buckle Gluer 02/06/22 Billie Tucker, RN Specialty Shirring Tender Gastroenterology 12/10/22 Paul Sanford MD [address] [place] [address] Gastroenterology 12/25/22 Paul Sanford MD [address] [place] [address] Referring Physician Gastroenterology 01/14/23 Jt Waters MD [address] [place] [address] Dermatology 01/14/23 Bhavik Segura PA-C [address] [place] [address] Physician Combine Driver Gastroenterology 04/28/23 Paul Sanford MD [address] [place] [address] 27765 Assigned Gastroenterology Provider 07/18/23 Favian Mcknight MD [address] [place] [address] Dermatology 12/09/23 Favian Mcknight MD [address] [place] [address] 43918 Assigned Surgical Provider 01/29/24 Tatianna Horne, [facility] [address] [place] [address] Assigned MTM Pharmacist 07/08/24 Lyudmila Baltazar, RN Home Infusion Instructional Systems Specialist 08/29/24 documented as of this encounter
--- OUTSIDE RECORDS SUMMARY | 2024-12-22 05:24 | XMS_ITS | Encounter Summary ---
Author Organization [place] Address [address] [place] [address] Care Team Providers Care Transmission Builder Name Role Phone Sushant Schreiber MD Primary Care Provider No Ref-Primary, Physician Unavailable [phone] Cisco Caceres MD Unavailable [phone] Yung Rodriguez MD Unavailable Tatianna Horne [facility] Unavailable [phone] Billie Tucker RN Unavailable Unavailable Paul Sanford MD Unavailable [phone] Paul Sanford MD Unavailable +[phone] Jt Waters MD Unavailable Bhavik Segura PA-C Unavailable [phone] Paul Sanford MD Unavailable [phone] Favian Mcknight MD Unavailable [phone] Favian Mcknight MD Unavailable [phone] Tatianna Horne [facility] Unavailable [phone] Lyudmila Baltazar RN Unavailable Unavailabl e Encounter Details Date Type Department Care Team (Late st Contact Info) Description 12/06/2024 Telephone [facility] Gastro Procedure [address] 3rd [place] [address] Denita Waddell LPN Social History [...] on file 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 Gave directions and prep verbally. My chart message sent with instructions on 11/03/2024 (read on 11/29/2024) and reminder sent 11-28-2024 (Not read) and 12/06/2024. Patient verbalized understanding and denied having any questions. Denita Waddell LPN EHOLD REFRIGERATION MECHANIC documented in this encounter Plan of Treatment Upcoming Encounters Date Type Department Care Team (Late st Contact Info) Description 01/12/2025 10:00 AM HOUSEHOLD REFRIGERATION MECHANIC Office Visit [facility] Gastroenterology Clinic [address] [address] Paul Sanford MD [address] [place] [address] documented as of this encounter Visit Diagnoses Not on filedocumented in this encounter Care Teams Transmission Builder Relationship Specialty Start Date End Date Sushant Schreiber MD [facility] [address] [place] [address] PCP - General Family Medicine 12/02/21 No Ref-Primary, Physician 12/02/21 Cisco Caceres MD [address] [place] [address] 284 [place], [place] 931925 Fellow Gastroenterology 12/09/21 Yung Rodriguez MD [address], [facility] [address] [place] [address] Cardiovascular Disease 12/25/21 Tatianna Horne, [facility] [address] [place], [place] 482535 Pharmacist Pharmacist Institutional Cook 02/06/22 Billie Tucker, RN Specialty Solar Photovoltaic Electrician Gastroenterology 12/10/22 Paul Sanford MD [address] [place] [address] 680665 Gastroenterology 12/25/22 Paul Sanford MD [address] [place] [address] 581115 Referring Physician Gastroenterology 01/14/23 Jt Waters MD [address] [place] [address] 661225 Dermatology 01/14/23 Bhavik Segura PA-C [address] [place] [address] 368955 Physician Veterinary Practice Manager Gastroenterology 04/28/23 Paul Sanford MD [address] [place] [address] Assigned Gastroenterology Provider 07/18/23 Favian Mcknight MD [address] [place] [address] Dermatology 12/09/23 Favian Mcknight MD 9 [place] [address] Assigned Surgical Provider 01/29/24 Tatianna Horne [facility] 9 [place] [address] Assigned MTM Pharmacist 07/08/24 Lyudmila Baltazar, RN Home Infusion Budget Counselor 08/29/24 documented as of this encounter
--- OUTSIDE RECORDS SUMMARY | 2024-12-22 05:24 | XMS_ITS | Encounter Summary ---
Author Organization [place] Address [address] [place] [address] Care Team Providers Care Building Carpenter Name Role Phone Sushant Schreiber MD Primary Care Provider No Ref-Primary, Physician Unavailable [phone] Cisco Caceres MD Unavailable [phone] Yung Rodriguez MD Unavailable Tatianna Horne [facility] Unavailable [phone] Billie Tucker RN Unavailable Unavailable Paul Sanford MD Unavailable [phone] Paul Sanford MD Unavailable [phone] Jt Waters MD Unavailable Jt Waters MD Unavailable Bhavik Segura PA-C Unavailable +[phone] Paul Sanford MD Unavailable [phone] Favian Mcknight MD Unavailable [phone] Favian Mcknight MD Unavailable [phone] Tatianna Horne [facility] Unavailable +[phone] Lyudmila Baltazar RN Unavailable Unavailabl e Encounter Details Date Type Department Care Team (Late st Contact Info) Description 11/11/2023 [facility] Gastroenterology Clinic [address] 4th [place] [address] Hang, Allison Social History Tobacco [...] file 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 [address] [place] [address] PCP - General Family Medicine 12/02/21 No Ref-Primary, Physician 12/02/21 Cisco Caceres MD [address] [place] [address] 284 [place], [place] 169095 Fellow Gastroenterology 12/09/21 Yung Rodriguez MD [address] [facility] [address] [place], [place] 9868[address] Cardiovascular Disease 12/25/21 Tatianna Horne, [facility] [address] [place] [address] Pharmacist Pharmacist Guide Dog Instructor 02/06/22 Billie Tucker, RN Specialty Premium Card Cancellation Clerk Gastroenterology 12/10/22 Paul Sanford MD [address] [place] [address] Gastroenterology 12/25/22 Paul Sanford MD [address] [place] [address]16 Referring Physician Gastroenterology 01/14/23 Jt Waters MD [address] [place] [address] Dermatology 01/14/23 Jt Waters MD [address] [place] [address] 570[address] Assigned Surgical Provider 01/17/23 01/28/24 Bhavik Segura PA-C [address] [place] [address] 22769 Physician Shipping Order Clerk Gastroenterology 04/28/23 Paul Sanford MD [address] [place] [address]26 Assigned Gastroenterology Provider 07/18/23 Favian Mcknight MD [address] [place] [address] Dermatology 12/09/23 Favian Mcknight MD [address] [place] [address]361 Assigned Surgical Provider 01/29/24 Tatianna Horne [facility] 9 [place] [address] Assigned MTM Pharmacist 07/08/24 Lyudmila Baltazar, RN Home Infusion Shoeblack 08/29/24 documented as of this encounter
--- OUTSIDE RECORDS SUMMARY | 2024-12-22 05:25 | XMS_ITS | Encounter Summary ---
Author Organization [place] Address [address] [place] [address] Care Team Providers Care Stock Clerk Self Service Store Name Role Phone Sushant Schreiber MD Primary Care Provider No Ref-Primary, Physician Unavailable [phone] Cisco Caceres MD Unavailable [phone] Yung Rodriguez MD Unavailable Tatianna Horne [facility] Unavailable [phone] Billie Tucker RN Unavailable Unavailable Paul Sanford MD Unavailable [phone] Paul Sanford MD Unavailable [phone] Jt Waters MD Unavailable Jt Waters MD Unavailable Bhavik Segura PA-C Unavailable +[phone] Paul Sanford MD Unavailable [phone] Favian Mcknight MD Unavailable [phone] Favian Mcknight MD Unavailable [phone] Tatianna Horne [facility] Unavailable [phone] Lyudmila Baltazar RN Unavailable Unavailabl e Encounter Details Date Type Department Care Team (Late st Contact Info) Description 01/19/2024 [facility]astro[facility] Clinic [address] 4th [place] [address] Paul Sanford MD [address] [place] [address] Social History Tobacco Use Types Packs/Day Years [...] on file 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 Gender Identity Not on file Sexual Orientation Not on file documented as of this encounter Plan of Treatment Upcoming Encounters Date Type Department Care Team (Late st Contact Info) Description 01/12/2025 10:00 AM CLINICAL DIETICIAN Office Visit [facility] Gastroenterology Clinic [address] [place] [phone] Paul Sanford MD [address] [place] [address]671 documented as of this encounter Visit Diagnoses Not on filedocumented in this encounter Care Teams Stock Clerk Self Service Store Relationship Specialty Start Date End Date Sushant Schreiber MD [facility] [address] [place] [address] PCP - General Family Medicine 12/02/21 No Ref-Primary, Physician 12/02/21 Cisco Caceres MD [address] [place] [address] 284 [place], [place] 540185 Fellow Gastroenterology 12/09/21 Yung Rodriguez MD [address] [address] [place] [address] Cardiovascular Disease 12/25/21 Tatianna Horne, [facility] [address] [place] [address] [phone] Pharmacist Pharmacist Computer Publisher 02/06/22 Billie Tucker, RN Specialty Transcription Specialist Gastroenterology 12/10/22 Paul Sanford MD [address] [place] [address] Gastroenterology 12/25/22 Paul Sanford MD [address] [place] [address] 31385 Referring Physician Gastroenterology 01/14/23 Jt Waters MD [address] [place] [address] Dermatology 01/14/23 Jt Waters MD [address] [place] [address]6788 Assigned Surgical Provider 01/17/23 01/28/24 Bhavik Segura PA-C [address] [place] [address] 31847 Physician Shaft Mechanic Gastroenterology 04/28/23 Paul Sanford MD [address] [place] [address] 9[address] Assigned Gastroenterology Provider 07/18/23 Favian Mcknight MD [address] [place] [address] Dermatology 12/09/23 Favian Mcknight MD [address] [place], [place] 315185 Assigned Surgical Provider 01/29/24 Tatianna Honre [facility] [address] [place] [address] Assigned MTM Pharmacist 07/08/24 Lyudmila Baltazar, RN Home Infusion Document Manager 08/29/24 documented as of this encounter
--- OUTSIDE RECORDS SUMMARY | 2024-12-22 05:25 | XMS_ITS | Encounter Summary ---
Author Organization [place] Address [address] [place] [address] Care Team Providers Care Steam And Power Supervisor Name Role Phone Sushant Schreiber MD Primary Care Provider No Ref-Primary, Physician Unavailable [phone] Cisco Caceres MD Unavailable [phone] Sabiha Hogan APRN HUMAN SERVICE SPECIALIST Unavailable [phone] Yung Rodriguez MD Unavailable Tatianna Horne [facility] Unavailable [phone] Tatianna Horne [facility] Unavailable [phone] Tatianna Horne [facility] Unavailable [phone] Billie Tucker RN Unavailable Unavailable Chantale Grande PA-C Unavailable [phone] Paul Sanford MD Unavailable Paul Sanford MD Unavailable Jt Waters MD Unavailable Jt Waters MD Unavailable Bhavik Segura PA-C Unavailable [phone] Paul Sanford MD Unavailable Favian Mcknight MD Unavailable [phone] Favian Mcknight MD Unavailable [phone] Tatianna Horne [facility] Unavailable Lyudmila Baltazar RN Unavailable Unavailabl e Encounter Details Date Type Department Care Team (Late Contact Info) Description 03/28/2022 MyC Medical Advice [facility] Gastroenterology [address] [phone] Mikala Kennedy CMA Social History Tobacco Use [...] on file 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 Gender Identity Not on file Sexual Orientation Not on file documented as of this encounter Plan of Treatment Upcoming Encounters Date Type Department Care Team (Late st Contact Info) Description 01/12/2025 10:00 AM DESULFURIZER HAND Office Visit [facility] Gastroenterology [address] [address] Paul Sanford MD [address] [place] [address] 445165 documented as of this encounter Visit Diagnoses Not on filedocumented in this encounter Care Teams Steam And Power Supervisor Relationship Specialty Start Date End Date Sushant Schreiber MD [facility] & [address] [address] PCP - General Family Medicine 12/02/21 No Ref-Primary, Physician 12/02/21 Cisco Caceres MD [address] [place] [address] [address] [place] [address] Fellow Gastroenterology 12/09/21 Sabiha Hogan APRN HUMAN SERVICE SPECIALIST [address] [place] [id number] Assigned Heart and Vascular Provider 12/15/21 02/13/23 Yung Rodriguez MD [address], [address] [place] [address] Cardiovascular Disease 12/25/21 [facility] [address] [place] [address] [phone] Pharmacist Pharmacist Pluck Trimmer 02/06/22 [facility] [address] [place] [address] [phone] Assigned MTM Pharmacist 04/12/22 [facility] [address] [place] [address] 459355 Assigned MTM Pharmacist 08/13/22 Billie Tucker, RN Specialty Land Resource Specialist Gastroenterology 12/10/22 Chantale Grande PACrispinC [address] [place] [address] Physician Spray Pilot Dermatology 12/25/22 01/13/23 Paul Sanford MD [address] [place], [place] 900945 Gastroenterology 12/25/22 Paul Sanford MD 500 [place] [address] Referring Physician Gastroenterology 01/14/23 Jt Waters MD 500 [place] [address] Dermatology 01/14/23 Jt Waters MD [address] [place] [address] Assigned Surgical Provider 01/17/23 01/28/24 Bhavik Segura PA-C [address] [place] [address] [id number] Physician Spray Pilot Gastroenterology 04/28/23 Paul Sanford MD [address] [place] [address] Assigned Gastroenterology Provider 07/18/23 Favian Mcknight MD [address] [place] [address] Dermatology 12/09/23 Favian Mcknight MD [address] [place] [address] Assigned Surgical Provider 01/29/24 Tatianna Horne [facility] [address] [place], [place] [address] Assigned MTM Pharmacist 07/08/24 Lyudmila Baltazar, RN Home Infusion Fleet Assistant 08/29/24 documented as of this encounter
--- OUTSIDE RECORDS SUMMARY | 2024-12-22 05:25 | XMS_ITS | Encounter Summary ---
Author Organization [place] Address [address] [place] [address] Care Team Providers Care Industrial Equipment Mechanic Name Role Phone Sushant Schreiber MD Primary Care Provider No Ref-Primary, Physician Unavailable [phone] Cisco Caceres MD Unavailable [phone] Sabiha Hogan APRN SENIOR LINUX SYSTEMS ENGINEER Unavailable +[phone] Yung Rodriguez MD Unavailable Tatianna Horne [facility] Unavailable [phone] Tatianna Horne [facility] Unavailable [phone] Tatianna Horne [facility] Unavailable [phone] Billie Tucker RN Unavailable Unavailable Ch[place]ale Grande PA-C Unavailable [phone] Paul Sanford MD Unavailable [phone] Paul Sanford MD Unavailable [phone] Jt Waters MD Unavailable Jt Waters MD Unavailable Bhavik Segura PA-C Unavailable [phone] Paul Sanford MD Unavailable Favian Mcknight MD Unavailable [phone] Favian Mcknight MD Unavailable [phone] Tatianna Horne [facility] Unavailable Lyudmila Baltazar RN Unavailable Unavailabl e Encounter Details Date Type Department Care Team (Late st Contact Info) Description 02/17/2022 MyC Medical Advice [facility] Gastroenterology [address] [phone] Michelle Enamorado RN Social History Tobacco Use [...] file Legal 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 Gender Identity Not on file Sexual [...] Contact Info) Description 01/12/2025 10:00 AM OCCUPATIONAL MEDICINE SPECIALIST Office Visit [facility] Gastroenterology [address] [phone] Paul Sanford MD [address] [place] [address] documented as of this encounter Visit Diagnoses Not on filedocumented in this encounter Additional Health Concerns Infection Onset Date Last Indicated Resolved Time COVID-19 02/27/2022 02/27/2022 03/20/2022 11:3 9 PM CDT documented as of this encounter Care Teams Industrial Equipment Mechanic Relationship Specialty Start Date End Date Sushant Schreiber MD [address] [address] PCP - General Family Medicine 12/02/21 No Ref-Primary, Physician 12/02/21 Cisco Caceres MD [address] [place] [address] Fellow Gastroenterology 12/09/21 Sabiha Hogan APRN SENIOR LINUX SYSTEMS ENGINEER [address] [place] [address] Assigned Heart and Vascular Provider 12/15/21 02/13/23 Yung Rodriguez MD [address] [facility] [address] [place] [address] Cardiovascular Disease 12/25/21 [facility] [address] [place] [address] Pharmacist Pharmacist Shade Bander 02/06/22 [facility] [address] [place] [address] Assigned MTM Pharmacist 04/12/22 [facility] [address] [place] [address] Assigned MTM Pharmacist 08/13/22 Billie Tucker, RN Specialty Rewinder Operator Gastroenterology 12/10/22 Chantale Grande, AMJO [address] [place] [address] Physician Ship Captain Dermatology 12/25/22 01/13/23 Paul Sanford MD 500 [place] [address] MD Gastroenterology 12/25/22 Paul Sanford MD [address] [place] [address] Referring Physician Gastroenterology 01/14/23 Jt Waters MD 500 [place] [address] Dermatology 01/14/23 Jt Waters MD [address] [place] [address] Assigned Surgical Provider 01/17/23 01/28/24 Bhavik Segura PA-C [address] [place] [address] 227655 Physician Ship Captain Gastroenterology 04/28/23 Paul Sanford MD [address] [place] [address] Assigned Gastroenterology Provider 07/18/23 Favian Mcknight MD [address] [place] [address] Dermatology 12/09/23 Favian Mcknight MD [address] [place] [address] Assigned Surgical Provider 01/29/24 Tatianna Horne [facility] [place] [address] Assigned MTM Pharmacist 07/08/24 Lyudmila Baltazar, RN Home Infusion Service Plumber 08/29/24 documented as of this encounter
--- OUTSIDE RECORDS SUMMARY | 2024-12-22 05:25 | XMS_ITS | Encounter Summary ---
Author Organization [place] Address [address] [place] [address] Care Team Providers Care Reporter Anchor Name Role Phone Sushant Schreiber MD Primary Care Provider [phone] No Ref-Primary, Physician Unavailable [phone] Cisco Caceres MD Unavailable [phone] Sabiha Hogan APRN GLUE REEL OPERATOR Unavailable [phone] Yung Rodriguez MD Unavailable Tatianna Horne [facility] Unavailable Tatianna Horne [facility] Unavailable [phone] Tatianna Horne [facility] Unavailable [phone] Billie Tucker RN Unavailable Unavailable [place] PA-C Unavailable [phone] Paul Sanford MD Unavailable Paul Sanford MD Unavailable Jt Waters MD Unavailable Jt Waters MD Unavailable Bhavik Segura PA-C Unavailable [phone] Paul Sanford MD Unavailable [phone] Favian Mcknight MD Unavailable [phone] Favian Mcknight MD Unavailable [phone] Tatianna Horne [facility] Unavailable Lyudmila Baltazar RN Unavailable Unavailabl e Encounter Details Date Type Department Care Team (Late st Contact Info) Description 03/17/2022 MyC Medical Advice [facility] Gastroenterology [address] [phone] Radhika Love MA Social History Tobacco Use [...] on file Legal 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 HYDROGEOLOGIST Gender Identity Not on file Sexual Orientation [...] st Contact Info) Description 01/12/2025 10:00 AM HYDROGEOLOGIST Office Visit [facility] Gastroenterology [address] [phone] Paul Sanford MD [address] [place] [address] documented as of this encounter Visit Diagnoses Not on filedocumented in this encounter Additional Health Concerns Infection Onset Date Last Indicated Resolved Time COVID-19 02/27/2022 02/27/2022 03/20/2022 11:3 9 PM CDT documented as of this encounter Care Teams Reporter Anchor Relationship Specialty Start Date End Date Sushant Schreiber MD [address] [address] PCP - General Family Medicine 12/02/21 No Ref-Primary, Physician 12/02/21 Cisco Caceres MD [address] [place] [address] Fellow Gastroenterology 12/09/21 Sabiha Hogan APRN GLUE REEL OPERATOR [address] [place], [place] 8784[address] Assigned Heart and Vascular Provider 12/15/21 02/13/23 Yung Rodriguez MD [address] [facility] [address] [place] [address] Cardiovascular Disease 12/25/21 [facility] [address] [place] [address] Pharmacist Pharmacist Dental Instructor 02/06/22 [facility] [address] [place] [address] Assigned MTM Pharmacist 04/12/22 [facility] [address] [place] [address] Assigned MTM Pharmacist 08/13/22 Billie Tucker, JANELL Specialty Alteration Inspector Gastroenterology 12/10/22 Chantale Grande PA-C [address] [place] [address] Physician Turkey Pinner Dermatology 12/25/22 01/13/23 Paul Sanford MD [address] [place] [address] Gastroenterology 12/25/22 Paul Sanford MD [address] [place] [address] Referring Physician Gastroenterology 01/14/23 Jt Waters MD 500 [place] [address] Dermatology 01/14/23 Jt Waters MD 500 [place] [address] Assigned Surgical Provider 01/17/23 01/28/24 Bhavik Segura PA-C [address] [place] [address] 938855 Physician Turkey Pinner Gastroenterology 04/28/23 Paul Sanford MD [address] [place] [address] Assigned Gastroenterology Provider 07/18/23 Favian Mcknight MD [address] [place] [address] Dermatology 12/09/23 Favian Mcknight MD [address] [place] [address] Assigned Surgical Provider 01/29/24 Tatianna Horne [facility] [address] [place] [address] Assigned MTM Pharmacist 07/08/24 Lyudmila Baltazar, RN Home Infusion Beauty Shop Manager 08/29/24 documented as of this encounter
--- OUTSIDE RECORDS SUMMARY | 2024-12-22 05:25 | XMS_ITS | Encounter Summary ---
Author Organization [place] Address [address] [place] [address] Care Team Providers Care Machine Sweeper Brush Maker Name Role Phone Sushant Schreiber MD Primary Care Provider No Ref-Primary, Physician Unavailable [phone] Cisco Caceres MD Unavailable [phone] Sabiha Hogan APRN, CNP Unavailable [phone] Yung Rodriguez MD Unavailable Tatianna Horne [facility] Unavailable Tatianna Horne [facility] Unavailable [phone] Billie Tucker RN Unavailable Unavailable Ch[place] PA-C Unavailable [phone] Paul Sanford MD Unavailable [phone] Paul Sanford MD Unavailable [phone] Jt Waters MD Unavailable Jt Waters MD Unavailable Bhavik Segura PA-C Unavailable [phone] Pual Sanford MD Unavailable Favian Mcknight MD Unavailable [phone] Favian Mcknight MD Unavailable [phone] Tatianna Horne [facility] Unavailable Lyudmila Baltazar RN Unavailable Unavailabl e Encounter Details Date Type Department Care Team (Late Contact Info) Description 10/02/2022 MyC Medical Advice [facility] [address] [phone] Cisco Caceres MD [address] [place] [address] Social History Tobacco Use Types Packs/Day Years [...] on file Legal 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 WAX PUMPER Gender Identity Not on file Sexual Orientation Not on file documented as of this encounter Plan of Treatment Upcoming Encounters Date Type Department Care Team (Late st Contact Info) Description 01/12/2025 10:00 AM WAX PUMPER Office Visit [facility] [address] [phone] Paul Sanford MD [address] [place] [address] documented as of this encounter Visit Diagnoses Not on filedocumented in this encounter Care Teams Machine Sweeper Brush Maker Relationship Specialty Start Date End Date Sushant Schreiber MD [facility] [address] [place] [address] PCP - General Family Medicine 12/02/21 No Ref-Primary, Physician 12/02/21 Cisco Caceres MD [address] [place] [address] Fellow Gastroenterology 12/09/21 Sabiha Hogan APRN AIRCRAFT SYSTEMS REPAIRER [address] [place], [place] [address] Assigned Heart and Vascular Provider 12/15/21 02/13/23 Yung Rodriguez MD [address] [place] [address] Cardiovascular Disease 12/25/21 [facility] [address] [place] [address] Pharmacist Pharmacist Dowel Pin Worker 02/06/22 [facility] [address] [place] [address] Assigned MTM Pharmacist 08/13/22 Billie Tucker, RN Specialty Hydro Mechanic Gastroenterology 12/10/22 Chantale Grande PABeti [address] [place] [address] Physician Accounts Payable Bookkeeper Dermatology 12/25/22 01/13/23 Paul Sanford MD 500 [place] [address] Gastroenterology 12/25/22 Paul Sanford MD 500 [place] [address] Referring Physician Gastroenterology 01/14/23 Jt Waters MD 500 [place] [address] Dermatology 01/14/23 Jt Waters MD [address] [place] [address] Assigned Surgical Provider 01/17/23 01/28/24 Bhavik Segura PA-C [address] [place] [address] Physician Accounts Payable Bookkeeper Gastroenterology 04/28/23 Paul Sanford MD [address] [place] [address] Assigned Gastroenterology Provider 07/18/23 Favian Mcknight MD [address] [place] [address] Dermatology 12/09/23 Favian Mcknight MD [address] [place] [address] Assigned Surgical Provider 01/29/24 Taitanna Horne, [facility] [address] [place] [address] Assigned MTM Pharmacist 07/08/24 Lyudmila Baltazar, RN Home Infusion Staking Technician 08/29/24 documented as of this encounter
--- OUTSIDE RECORDS SUMMARY | 2024-12-22 05:25 | XMS_ITS | Encounter Summary ---
Author Organization [place] Address [address] [place] [address] Care Team Providers Care Practical Nursing Teacher Name Role Phone Sushant Schreiber MD Primary Care Provider No Ref-Primary, Physician Unavailable [phone] Cisco Caceres MD Unavailable [phone] Sabiha Hogan APRN BYPRODUCTS OPERATOR Unavailable [phone] Yung Rodriguez MD Unavailable Tatianna Horne [facility] Unavailable Tatianna Horne [facility] Unavailable [phone] Tatianna Horne [facility] Unavailable [phone] Billie Tucker RN Unavailable Unavailable Chantale Grande PA-C Unavailable [phone] Paul Sanford MD Unavailable [phone] Paul Sanford MD Unavailable Jt Waters MD Unavailable Jt Waters MD Unavailable Bhavik Segura PA-C Unavailable [phone] Paul Sanford MD Unavailable Favian Mcknight MD Unavailable [phone] Favian Mcknight MD Unavailable [phone] Tatianna Horne [facility] Unavailable Lyudmila Baltazar RN Unavailable Unavailabl e Encounter Details Date Type Department Care Team (Late st Contact Info) Description 01/28/2022 MyC Medical Advice [facility] Gastroenterology [address] [phone] Michelle Enamorado RN Social History Tobacco Use [...] on file 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 Gender Identity Not on file [...] st Contact Info) Description 01/12/2025 10:00 AM RESISTOR TESTING MACHINE OPERATOR Office Visit [facility] Gastroenterology [address] [phone] Paul Sanford MD [address] [place] [address] documented as of this encounter Visit Diagnoses Not on filedocumented in this encounter Additional Health Concerns Infection Onset Date Last Indicated Resolved Time COVID-19 02/27/2022 02/27/2022 03/20/2022 11:3 9 PM CDT documented as of this encounter Care Teams Practical Nursing Teacher Relationship Specialty Start Date End Date Sushant Schreiber MD [address] [address] PCP - General Family Medicine 12/02/21 No Ref-Primary, Physician 12/02/21 Cisco Caceres MD [address] [place] [address] Fellow Gastroenterology 12/09/21 Sabiha Hogan APRN BYPRODUCTS OPERATOR [address] [place] [address] Assigned Heart and Vascular Provider 12/15/21 02/13/23 Yung Rodriguez MD [address] [facility] [address] [place] [address] Cardiovascular Disease 12/25/21 [facility] [address] [place] [address] Pharmacist Pharmacist Utility Bag Assembler 02/06/22 [facility] [address] [place] [address] Assigned MTM Pharmacist 04/12/22 [facility] [address] [place] [address] Assigned MTM Pharmacist 08/13/22 Billie Tucker, RN Specialty Extractor Operator Solvent Process Gastroenterology 12/10/22 Chantale Grande, MAJO [address] [place] [address] Physician Hospice Registered Nurse Dermatology 12/25/22 01/13/23 Paul Sanford MD 500 [place] [address] MD Gastroenterology 12/25/22 Paul Sanford MD [address] [place] [address] Referring Physician Gastroenterology 01/14/23 Jt Waters MD 500 [place] [address] Dermatology 01/14/23 Jt Waters MD [address] [place] [address] Assigned Surgical Provider 01/17/23 01/28/24 Bhavik Segura PA-C [address] [place] [address] 334385 Physician Hospice Registered Nurse Gastroenterology 04/28/23 Paul Sanford MD [address] [place] [address] Assigned Gastroenterology Provider 07/18/23 Favian Mcknight MD [address] [place] [address] Dermatology 12/09/23 Favian Mcknight MD [address] [place] [address] Assigned Surgical Provider 01/29/24 Tatianna Horne [facility] [place] [address] Assigned MTM Pharmacist 07/08/24 Lyudmila Baltazar, RN Home Infusion Healthcare Specialist 08/29/24 documented as of this encounter
--- OUTSIDE RECORDS SUMMARY | 2024-12-22 05:25 | XMS_ITS | Encounter Summary ---
Author Organization [place] Address [address] [place] [address] Care Team Providers Care Slaughterer Religious Ritual Name Role Phone Sushant Schreiber MD Primary Care Provider [phone] No Ref-Primary, Physician Unavailable [phone] Cisco Caceres MD Unavailable [phone] Yung Rodriguez MD Unavailable Tatianna Horne [facility] Unavailable [phone] Billie Tucker RN Unavailable Unavailable Paul Sanford MD Unavailable [phone] Paul Sanford MD Unavailable [phone] Jt Waters MD Unavailable Jt Waters MD Unavailable Bhavik Segura PA-C Unavailable [phone] Paul Sanford MD Unavailable [phone] Favian Mcknight MD Unavailable [phone] Favian Mcknight MD Unavailable [phone] Tatianna Horne [facility] Unavailable [phone] Lyudmila Baltazar RN Unavailable Unavailabl e Encounter Details Date Type Department Care Team (Late st Contact Info) Description 01/26/2024 [facility] [address] [place] [address] Billie Tucker RN Social History [...] file Legal 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 Gender Identity Not on file Sexual Orientation Not on file documented as of this encounter Plan of Treatment Upcoming Encounters Date Type Department Care Team (Late st Contact Info) Description 01/12/2025 10:00 AM BRAKE TESTER Office Visit [facility] [address] [place] [phone] Paul Sanford MD [address] [place] [address] 185675 documented as of this encounter Visit Diagnoses Not on filedocumented in this encounter Care Teams Slaughterer Religious Ritual Relationship Specialty Start Date End Date Sushant Schreiber MD [facility] [address] [place] [address] PCP - General Family Medicine 12/02/21 No Ref-Primary, Physician 12/02/21 Cisco Caceres MD [address] [place] [address] 284 [place], [place] 6[address] Fellow Gastroenterology 12/09/21 Yung Rodriguez MD [address] [facility] [address] [place], [place] [address] Cardiovascular Disease 12/25/21 Tatianna Horne, [facility] [address] [place] [address] Pharmacist Pharmacist Saw Handle Assembler 02/06/22 Billie Tucker, RN Specialty Clutch Specialist Gastroenterology 12/10/22 Paul Sanford MD [address] [place] [address] Gastroenterology 12/25/22 Paul Sanford MD [address] [place] [address] Referring Physician Gastroenterology 01/14/23 Jt Waters MD [address] [place] [address] 912235 Dermatology 01/14/23 Jt Waters MD [address] [place] [address] Assigned Surgical Provider 01/17/23 01/28/24 Bhavik Segura PA-C [address] [place] [address] 852525 Physician Zinc Plater Gastroenterology 04/28/23 Paul Sanford MD [address] [place] [address] Assigned Gastroenterology Provider 07/18/23 Favian Mcknight MD [address] [place] [address] Dermatology 12/09/23 Favian Mcknight MD [address] [place] [address] Assigned Surgical Provider 01/29/24 Tatianna Horne [facility] [address] [place] [address] Assigned MTM Pharmacist 07/08/24 Lyudmila Baltazar, RN Home Infusion Security Coordinator 08/29/24 documented as of this encounter
--- OUTSIDE RECORDS SUMMARY | 2024-12-22 05:25 | XMS_ITS | Encounter Summary ---
Author Organization [facility] Address [address] [place] [address] 6[address] Care Team Providers Care Volunteer Assistant Name Role Phone Sushant Schreiber MD Primary Care Provider [phone] No Ref-Primary, Physician Unavailable [phone] Cisco Caceres MD Unavailable [phone] Sabiha Hogan APRN, CNP Unavailable [phone] Yung Rodriguez MD Unavailable Tatianna Horne [facility] Unavailable Tatianna Horne [facility] Unavailable [phone] Billie Tucker RN Unavailable Unavailable Chantale Grande PA-C Unavailable [phone] Paul Sanford MD Unavailable [phone] Paul Sanford MD Unavailable [phone] Jt Waters MD Unavailable Jt Waters MD Unavailable Bhavik Segura PA-C Unavailable [phone] Paul Sanford MD Unavailable Favian Mcknight MD Unavailable [phone] Favian Mcknight MD Unavailable [phone] Tatianna Horne [facility] Unavailable Lyudmila Baltazar RN Unavailable Unavailabl e Encounter Details Date Type Department Care Team (Late st Contact Info) Description 08/14/2022 MyC Medical Advice [facility] Heart [facility] [address] [facility] [address] [place] [address] EdisonSabiha APRN DIETARY SERVICES MANAGER [address] [place], [place] [address] Social History Tobacco Use Types Packs/Day Years [...] file Legal 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 OIL EXPERT Gender Identity Not on file Sexual Orientation Not on file documented as of this encounter Plan of Treatment Upcoming Encounters Date Type Department Care Team (Late st Contact Info) Description 01/12/2025 10:00 AM OIL EXPERT Office Visit [facility]ology [facility] [address] [address] Paul Sanford MD [address] [place] [address] 867025 documented as of this encounter Visit Diagnoses Not on filedocumented in this encounter Care Teams Volunteer Assistant Relationship Specialty Start Date End Date Sushant Schreiber MD [facility] [address] [place] [address] PCP - General Family Medicine 12/02/21 No Ref-Primary, Physician 12/02/21 Cisco Caceres MD [address] [place] [address] 284 [place], [place] 587755 Fellow Gastroenterology 12/09/21 Sabiha Hogan APRN DIETARY SERVICES MANAGER [address] [place], [place] 494115 Assigned Heart and Vascular Provider 12/15/21 02/13/23 Yung Rodriguez MD [address] [place], [place] 827085 Cardiovascular Disease 12/25/21 [facility] [address] [place] [address] 067905 Pharmacist Pharmacist Shingle Grader 02/06/22 [facility] [address] [place] [address] 018205 Assigned MTM Pharmacist 08/13/22 Billie Tucker, RN Specialty Payroll Coordinator Gastroenterology 12/10/22 Chantale Grande, PACrispinC [address] [place], [place] [phone] Physician Ems Helicopter Pilot Dermatology 12/25/22 01/13/23 Paul Sanford MD 500 [place] [address] Gastroenterology 12/25/22 Paul Sanford MD 500 [place] [address] Referring Physician Gastroenterology 01/14/23 Jt Waters MD 500 [place] [address] Dermatology 01/14/23 Jt Waters MD 500 [place] [address] Assigned Surgical Provider 01/17/23 01/28/24 Bhavik Segura PA-C [address] [place] [address] Physician Ems Helicopter Pilot Gastroenterology 04/28/23 Paul Sanford MD [address] [place] [address] Assigned Gastroenterology Provider 07/18/23 Favian Mcknight MD [address] [place] [address] Dermatology 12/09/23 Favian Mcknight MD [address] [place] [address] Assigned Surgical Provider 01/29/24 Tatianna Horne [facility] [address] [place] [address]70 Assigned MTM Pharmacist 07/08/24 Lyudmila Baltazar, RN Home Infusion Project Technician 08/29/24 documented as of this encounter
--- OUTSIDE RECORDS SUMMARY | 2024-12-22 05:25 | XMS_ITS | Encounter Summary ---
Author Organization [facility] Address [address] [place] [address] Care Team Providers Care Bottom Brusher Name Role Phone Sushant Schreiber MD Primary Care Provider [phone] No Ref-Primary, Physician Unavailable [phone] Cisco Caceres MD Unavailable [phone] Sabiha Hogan APRN, CNP Unavailable [phone] Yung Rodriguez MD Unavailable Tatianna Horne [facility] Unavailable Tatianna Horne [facility] Unavailable [phone] Billie Tucker RN Unavailable Unavailable Chantale Grande PA-C Unavailable [phone] Paul Sanford MD Unavailable [phone] Paul Sanford MD Unavailable [phone] Jt Waters MD Unavailable Jt Waters MD Unavailable Bhavik Segura PA-C Unavailable [phone] Paul Sanford MD Unavailable Favian Mcknight MD Unavailable [phone] Favian Mcknight MD Unavailable [phone] Tatianna Horne [facility] Unavailable [phone] Lyudmila Baltazar RN Unavailable Unavailabl e Encounter Details Date Type Department Care Team (Late Contact Info) Description 12/22/2022 MyC Medical Advice [facility] Gastroenterology Clinic [address] [address] Billie Tucker RN Social History [...] on file 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 No / Unsure 12/25/2022 7:56 AM ASSISTANT FOOTBALL COACH documented as of this encounter Plan of Treatment Upcoming Encounters Date Type Department Care Team (Late st Contact Info) Description 01/12/2025 10:00 AM ASSISTANT FOOTBALL COACH Office Visit [facility] Gastroenterology [address] [address] Paul Sanford MD [address] [place] [address] 368515 documented as of this encounter Visit Diagnoses Not on filedocumented in this encounter Care Teams Bottom Brusher Relationship Specialty Start Date End Date Sushant Schreiber MD [facility] [address] [place] [address] PCP - General Family Medicine 12/02/21 No Ref-Primary, Physician 12/02/21 Cisco Caceres MD [address] [place] [address] Fellow Gastroenterology 12/09/21 Sabiha Hogan APRN SMOKE JUMPER SUPERVISOR [address] [place] 249255 Assigned Heart and Vascular Provider 12/15/21 02/13/23 Yung Rodriguez MD [address] [place] 613835 Cardiovascular Disease 12/25/21 [facility] [address] [place] [address] Pharmacist Pharmacist Residential Advisor 02/06/22 [facility] [address] [place] [address] Assigned MTM Pharmacist 08/13/22 Billie Tucker, JANELL Specialty Lithopress Operator Gastroenterology 12/10/22 Chantale Grande PA-C [address] [place] [address] Physician Ob Scrub Tech Dermatology 12/25/22 01/13/23 Paul Sanford MD 500 [place] [address] Gastroenterology 12/25/22 Paul Sanford MD 500 [place] [address] Referring Physician Gastroenterology 01/14/23 Jt Waters MD 500 [place] [address] Dermatology 01/14/23 Jt Waters MD 500 [place] [address] Assigned Surgical Provider 01/17/23 01/28/24 Bhavik Segura PA-C [address] [place] [address] Physician Ob Scrub Tech Gastroenterology 04/28/23 Paul Sanford MD 500 [place] [address] Assigned Gastroenterology Provider 07/18/23 Favian Mcknight MD [address] [place] [address] Dermatology 12/09/23 Favian Mcknight MD [address] [place] [address] Assigned Surgical Provider 01/29/24 Tatianna Horne, [facility] [address] [place] [address] Assigned MTM Pharmacist 07/08/24 Lyudmila Baltazar, RN Home Infusion Healthcare Sales Representative 08/29/24 documented as of this encounter
--- OUTSIDE RECORDS SUMMARY | 2024-12-22 05:25 | XMS_ITS | Encounter Summary ---
Author Organization [facility] Address [address] [place] [address] Care Team Providers Care Winterizer Name Role Phone Sushant Schreiber MD Primary Care Provider No Ref-Primary, Physician Unavailable [phone] Cisco Caceres MD Unavailable [phone] Sabiha Hogan APRN STOCK RAISER Unavailable [phone] Yung Rodriguez MD Unavailable Tatianna Horne [facility] Unavailable Tatianna Horne [facility] Unavailable [phone] Tatianna Horne [facility] Unavailable [phone] Billie Tucker RN Unavailable Unavailable Chantale Grande PA-C Unavailable [phone] Paul Sanford MD Unavailable Paul Sanford MD Unavailable Jt Waters MD Unavailable Jt Waters MD Unavailable Bhavik Segura PA-C Unavailable [phone] Paul Sanford MD Unavailable Favian Mcknight MD Unavailable [phone] Favian Mcknight MD Unavailable [phone] Tatianna H[address] 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 Gender Identity Not on file Sexual Orientation Not on file documented as of this encounter Plan of Treatment Upcoming Encounters Date Type Department Care Team (Late Contact Info) Description 01/12/2025 10:00 AM PRECIPITATE WASHER Office Visit [facility] Gastroenterology Clinic [address] [place] [address] Paul Sanford MD [address] [place] [address] 834705 documented as of this encounter Visit Diagnoses Not on filedocumented in this encounter Care Teams Winterizer Relationship Specialty Start Date End Date Sushant Schreiber MD [facility] [address] [place] [address] PCP - General Family Medicine 12/02/21 No Ref-Primary, Physician 12/02/21 Cisco Caceres MD [address] [place] [address] Fellow Gastroenterology 12/09/21 Sabiha Hogan APRN STOCK RAISER [address] [place], [place] 937685 Assigned Heart and Vascular Provider 12/15/21 02/13/23 Yung Rodriguez MD [address] [place], [place] 245475 Cardiovascular Disease 12/25/21 [facility] [address] [place] [address] 748115 Pharmacist Pharmacist Road Builder 02/06/22 [facility] [address] [place] [address] 164995 Assigned MTM Pharmacist 04/12/22 [facility] [address] [place] [address] 306075 Assigned MTM Pharmacist 08/13/22 Billie Tucker, RN Specialty Liquefaction Supervisor Gastroenterology 12/10/22 Chantale Grande PACrispinC [address] [place] [address] Physician Fermentation Scientist Dermatology 12/25/22 01/13/23 Paul Sanford MD 500 [place], [place] 485115 Gastroenterology 12/25/22 Paul Sanford MD 500 [place], [place] 191975 Referring Physician Gastroenterology 01/14/23 Jt Waters MD 500 [place] [address] Dermatology 01/14/23 Jt Waters MD 500 [place] [address] Assigned Surgical Provider 01/17/23 01/28/24 Bhavik Segura PA-C [address] [place] [address] 322985 Physician Fermentation Scientist Gastroenterology 04/28/23 Paul Sanford MD [address] [place] [address] Assigned Gastroenterology Provider 07/18/23 Favian Mcknight MD [address] [place] [address] Dermatology 12/09/23 Favian Mcknight MD [address] [place] [address] 600[address] Assigned Surgical Provider 01/29/[address] [facility] [address] [place] [address] 646205 Assigned MTM Pharmacist 07/08/24 Lyudmila Baltazar, RN Home Infusion Language And Literature Division Chair 08/29/24 documented as of this encounter
--- OUTSIDE RECORDS SUMMARY | 2024-12-22 05:25 | XMS_ITS | Encounter Summary ---
Author Organization [facility] Address [address] [place] [address] Care Team Providers Care Credit Control Assistant Name Role Phone Sushant Schreiber MD Primary Care Provider No Ref-Primary, Physician Unavailable [phone] Cisco Caceres MD Unavailable [phone] Sabiha Hogan APRN CONTROLS DESIGN ENGINEER Unavailable [phone] Yung Rodriguez MD Unavailable Tatianna Horne [facility] Unavailable Tatianna Horne [facility] Unavailable [phone] Tatianna Horne [facility] Unavailable [phone] Billie Tucker RN Unavailable Unavailable Chantale Grande PA-C Unavailable [phone] Paul Sanford MD Unavailable Paul aSnford MD Unavailable Jt Waters MD Unavailable Jt Waters MD Unavailable Bhavik Segura PA-C Unavailable [phone] Paul Sanford MD Unavailable [phone] Favian Mcknight MD Unavailable [phone] Favian Mcknight MD Unavailable [phone] Tatianna Horne [facility] Unavailable Lyudmila Baltazar RN Unavailable Unavailabl e Encounter Details Date Type Department Care Team (Late Contact Info) Description 06/27/2022 MyC Medical Advice [address] [place] [phone] Chantell Madera, JANELL Social History Tobacco Use [...] file 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 IMAGING TECH Gender Identity Not on file Sexual Orientation Not on file documented as of this encounter Plan of Treatment Upcoming Encounters Date Type Department Care Team (Late Contact Info) Description 01/12/2025 10:00 AM IMAGING TECH Office Visit [facility] Gastroenterology Clinic [address] [place] [address] Paul Sanford MD [address] [place] [address] 222675 documented as of this encounter Visit Diagnoses Not on filedocumented in this encounter Care Teams Credit Control Assistant Relationship Specialty Start Date End Date Sushant Schreiber MD [facility] [address] [place] [address] PCP - General Family Medicine 12/02/21 No Ref-Primary, Physician 12/02/21 Cisco Caceres MD [address] [place] [address] Fellow Gastroenterology 12/09/21 Sabiha Hogan APRN CONTROLS DESIGN ENGINEER [address] [place], [place] 534335 Assigned Heart and Vascular Provider 12/15/21 02/13/23 Yung Rodriguez MD [address] [place], [place] 913485 Cardiovascular Disease 12/25/21 [facility] [address] [place] [address] 820295 Pharmacist Pharmacist Studio Potter 02/06/22 [facility] [address] [place] [address] 541485 Assigned MTM Pharmacist 04/12/22 [facility] [address] [place] [address] 936315 Assigned MTM Pharmacist 08/13/22 Billie Tucker, RN Specialty Software Test Engineer Gastroenterology 12/10/22 Chantale Grande PACrispinC [address] [place] [address] Physician Uniform Designer Dermatology 12/25/22 01/13/23 Paul Sanford MD 500 [place], [place] 154465 Gastroenterology 12/25/22 Paul Sanford MD 500 [place], [place] 863595 Referring Physician Gastroenterology 01/14/23 Jt Waters MD 500 [place] [address] Dermatology 01/14/23 Jt Waters MD 500 [place] [address] Assigned Surgical Provider 01/17/23 01/28/24 Bhavik Segura PA-C [address] [place] [address] 963145 Physician Uniform Designer Gastroenterology 04/28/23 Paul Sanford MD [address] [place] [address] Assigned Gastroenterology Provider 07/18/23 Favian Mcknight MD [address] [place] [address] Dermatology 12/09/23 Favian Mcknight MD [address] [place] [address] Assigned Surgical Provider 01/29/24 Tatianna Horne [facility] [address] [place] [address] 933285 Assigned MTM Pharmacist 07/08/24 Lyudmila Baltazar, RN Home Infusion Bilingual Sales Representative 08/29/24 documented as of this encounter
--- OUTSIDE RECORDS SUMMARY | 2024-12-22 05:25 | XMS_ITS | Encounter Summary ---
Author Organization [facility] Address [address] [place] [address] Care Team Providers Care Wastewater Treatment Plant Supervisor Name Role Phone Sushant Schreiber MD Primary Care Provider [phone] No Ref-Primary, Physician Unavailable [phone] Cisco Caceres MD Unavailable [phone] Sabiha Hogan APRN, CNP Unavailable [phone] Yung Rodriguez MD Unavailable Tatianna Horne [facility] Unavailable Tatianna Horne [facility] Unavailable [phone] Billie Tucker RN Unavailable Unavailable Chantale Grande PA-C Unavailable [phone] Paul Sanford MD Unavailable [phone] Paul Sanford MD Unavailable [phone] Jt Waters MD Unavailable Jt Waters MD Unavailable Bhavik Segura PA-C Unavailable [phone] Paul Sanford MD Unavailable [phone] Favian Mcknight MD Unavailable [phone] Favian Mcknight MD Unavailable [phone] Tatianna Horne [facility] Unavailable Lyudmila Baltazar RN Unavailable Unavailabl e Encounter Details Date Type Department Care Team (Late Contact Info) Description 12/16/2022 [facility] [address] [place] [phone] Hoda Diony Social History Tobacco Use [...] on file 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 No / Unsure 12/09/2022 2:55 PM DOOR TO DOOR SALESMAN documented as of this encounter Plan of Treatment Upcoming Encounters Date Type Department Care Team (Late Contact Info) Description 01/12/2025 10:00 AM DOOR TO DOOR SALESMAN Office Visit [facility] Gastroenterology Clinic [address] [place] [address] Paul Sanford MD [address] [place] [address] documented as of this encounter Visit Diagnoses Not on filedocumented in this encounter Care Teams Wastewater Treatment Plant Supervisor Relationship Specialty Start Date End Date Sushant Schreiber MD [facility] [address] [place] [address] PCP - General Family Medicine 12/02/21 No Ref-Primary, Physician 12/02/21 Cisco Caceres MD [address] [place] [address] 284 [place], [place] 436095 Fellow Gastroenterology 12/09/21 Sabiha Hogan APRN ACADEMIC ASSOCIATE [address] [place], [place] 634505 Assigned Heart and Vascular Provider 12/15/21 02/13/23 Yung Rodriguez MD [address] [place], [place] 988825 Cardiovascular Disease 12/25/21 [facility] [address] [place] [address] 027695 Pharmacist Pharmacist Emissions Technician 02/06/22 [facility] [address] [place] [address] 364375 Assigned MTM Pharmacist 08/13/22 Billie Tucker, RN Specialty Heart Doctor Gastroenterology 12/10/22 Chantale Grande, PACrispinC [address] [place], [place] 5644092 Physician Crane Hoist Or Lift Operator Dermatology 12/25/22 01/13/23 Paul Sanford MD 500 [place] [address] Gastroenterology 12/25/22 Paul Sanford MD 500 [place] [address] Referring Physician Gastroenterology 01/14/23 Jt Waters MD 500 [place] [address] Dermatology 01/14/23 Jt Waters MD 500 [place] [address] Assigned Surgical Provider 01/17/23 01/28/24 Bhavik Segura PACrispinC [address] [place] [address] Physician Crane Hoist Or Lift Operator Gastroenterology 04/28/23 Paul Sanford MD [address] [place] [address] Assigned Gastroenterology Provider 07/18/23 Favian Mcknight MD [address] [place] [address] Dermatology 12/09/23 Favian Mcknight MD [address] [place] [address] Assigned Surgical Provider 01/29/24 Tatianna Horne, [facility] [address] [place] [address] 922[address] Assigned MTM Pharmacist 07/08/24 Lyudmila Baltazar, RN Home Infusion Industrial Gas Servicer 08/29/24 documented as of this encounter
--- OUTSIDE RECORDS SUMMARY | 2024-12-22 05:25 | XMS_ITS | Encounter Summary ---
Author Organization [facility] Address [address] [place] [address] Care Team Providers Care Product Development Consultant Name Role Phone Sushant Schreiber MD Primary Care Provider No Ref-Primary, Physician Unavailable [phone] Cisco Caceres MD Unavailable [phone] Sabiha Hogan APRN DENTAL MECHANIC Unavailable [phone] Yung Rodriguez MD Unavailable Tatianna Horne [facility] Unavailable Tatianna Horne [facility] Unavailable [phone] Tatianna Horne [facility] Unavailable [phone] Billie Tucker RN Unavailable Unavailable Chantale Grande PA-C Unavailable [phone] Paul Sanford MD Unavailable Paul Sanford MD Unavailable Jt Waters MD Unavailable Jt Waters MD Unavailable Bhavik Segura PA-C Unavailable [phone] Paul Sanford MD Unavailable Favian Mcknight MD Unavailable [phone] Favian Mcknight MD Unavailable [phone] Tatianna Horne [facility] Unavailable Lyudmila Baltazar RN Unavailable Unavailabl e Encounter Details Date Type Department Care Team (Late Contact Info) Description 07/07/2022 MyC Medical Advice [facility] Gastroenterology Clinic [address] [phone] Michelle Enamorado RN Social History Tobacco Use [...] on file Legal 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 JUDGE Gender Identity Not on file Sexual Orientation Not on file documented as of this encounter Plan of Treatment Upcoming Encounters Date Type Department Care Team (Late st Contact Info) Description 01/12/2025 10:00 AM PROBATE JUDGE Office Visit [facility] Gastroenterology Clinic [address] [address] Paul Sanford MD [address] [place] [address] 563765 documented as of this encounter Visit Diagnoses Not on filedocumented in this encounter Care Teams Product Development Consultant Relationship Specialty Start Date End Date Sushant Schreiber MD [facility] [address] [place] [address] PCP - General Family Medicine 12/02/21 No Ref-Primary, Physician 12/02/21 Cisco Caceres MD [address] [place] [address] 284 [place], [place] 426675 Fellow Gastroenterology 12/09/21 Sabiha Hogan APRN CNP [address] [place] [address] Assigned Heart and Vascular Provider 12/15/21 02/13/23 Yung Rodriguez MD [address] [place] [address] Cardiovascular Disease 12/25/21 [facility] [address] [place] [address] Pharmacist Pharmacist Police Commanding Officer 02/06/22 [facility] [address] [place] [address] 619005 Assigned MTM Pharmacist 04/12/22 [facility] [address] [place] [address] 224[address] Assigned MTM Pharmacist 08/13/22 Billie Tucker, RN Specialty Atomic Spectroscopist Gastroenterology 12/10/22 Chantale Grande PA-C [address] [place] [address] Physician Student Services Advisor Dermatology 12/25/22 01/13/23 Paul Sanford MD [address] [place] [address] Gastroenterology 12/25/22 Paul Sanford MD [address] [place] [address] Referring Physician Gastroenterology 01/14/23 Jt Waters MD 500 [place] [address] Dermatology 01/14/23 Jt Waters MD 500 [place] [address] Assigned Surgical Provider 01/17/23 01/28/24 Bhavik Segura PA-C [address] [place] [address] Physician Student Services Advisor Gastroenterology 04/28/23 Paul Sanford MD [address] [place] [address] Assigned Gastroenterology Provider 07/18/23 Favian Mcknight MD [address] [place] [address] Dermatology 12/09/23 Favian Mcknight MD [address] [place] [address] Assigned Surgical Provider 01/29/24 Tatianna Horne, [facility] [address] [place], [place] 440585 Assigned MTM Pharmacist 07/08/24 Lyudmila Baltazar, RN Home Infusion Senior Cisco Network Engineer 08/29/24 documented as of this encounter
--- OUTSIDE RECORDS SUMMARY | 2024-12-22 05:25 | XMS_ITS | Encounter Summary ---
Author Organization [facility] Address [address] [place] [address] Care Team Providers Care Computational Theory Scientist Name Role Phone Sushant Schreiber MD Primary Care Provider No Ref-Primary, Physician Unavailable [phone] Cisco Caceres MD Unavailable [phone] Yung Rodriguez MD Unavailable Tatianna Horne [facility] Unavailable [phone] Billie Tucker RN Unavailable Unavailable Paul Sanford MD Unavailable [phone] Paul Sanford MD Unavailable [phone] Jt Waters MD Unavailable Jt Waters MD Unavailable Bhavik Segura PA-C Unavailable [phone] Paul Sanford MD Unavailable [phone] Favian Mcknight MD Unavailable [phone] Favian Mcknight MD Unavailable [phone] Tatianna Horne [facility] Unavailable [phone] Lyudmila Baltazar RN Unavailable Unavailabl e Encounter Details Date Type Department Care Team (Late st Contact Info) Description 01/09/2024 [facility] [id number] [place] [address] Tatianna Horne Dar[place], [facility] [address] [place] [address] Social History Tobacco Use Types Packs/Day Years [...] on file 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 Gender Identity Not on file Sexual Orientation Not on file documented as of this encounter Plan of Treatment Upcoming Encounters Date Type Department Care Team (Late st Contact Info) Description 01/12/2025 10:00 AM DATABASE SECURITY EXPERT Office Visit [facility] [address] [place] [phone] Paul Sanford MD [address] [place] [address] documented as of this encounter Visit Diagnoses Not on filedocumented in this encounter Care Teams Computational Theory Scientist Relationship Specialty Start Date End Date Sushant Schreiber MD [facility] [address] [place] [address] PCP - General Family Medicine 12/02/21 No Ref-Primary, Physician 12/02/21 Cisco Caceres MD [address] [place] [address] [address] [place], [place] [id number] Fellow Gastroenterology 12/09/21 Yung Rodriguez MD [address] [place], [place] [address] Cardiovascular Disease 12/25/21 Tatianna Horne [facility] [address] [place] [address] Pharmacist Pharmacist Aerotriangulation Specialist 02/06/22 Billie Tucker, RN Specialty Barrel Endshaker Adjuster Gastroenterology 12/10/22 Paul Sanford MD [address] [place] [address] Gastroenterology 12/25/22 Paul Sanford MD [address] [place] [address] Referring Physician Gastroenterology 01/14/23 Jt Waters MD [address] [place] [address] Dermatology 01/14/23 Jt Waters MD [address] [place] [address] Assigned Surgical Provider 01/17/23 01/28/24 Bhavik Segura PA-C [address] [place] [address] Physician Police Worker Gastroenterology 04/28/23 Paul Sanford MD [address] [place] [address] Assigned Gastroenterology Provider 07/18/23 Favian Mcknight MD [address] [place] [address] Dermatology 12/09/23 Favian Mcknight MD [address] [place] [address] Assigned Surgical Provider 01/29/24 Tatianna Horne [facility] [address] [place] [address] Assigned MTM Pharmacist 07/08/24 Lyudmila Baltazar, RN Home Infusion Warp Yarn Sorter 08/29/24 documented as of this encounter
--- OUTSIDE RECORDS SUMMARY | 2024-12-22 05:25 | XMS_ITS | Encounter Summary ---
Author Organization [facility] Address [address] [place] [address] Care Team Providers Care Refrigeration Service Technician Name Role Phone Sushant Schreiber MD Primary Care Provider No Ref-Primary, Physician Unavailable [phone] Cisco Caceres MD Unavailable [phone] Yung Rodriguez MD Unavailable Tatianna Horne [facility] Unavailable [phone] Billie Tucker RN Unavailable Unavailable Paul Sanford MD Unavailable [phone] Paul Sanford MD Unavailable [phone] Jt Waters MD Unavailable Jt Waters MD Unavailable Bhavik Segura PA-C Unavailable [phone] Paul Sanford MD Unavailable [phone] Favian Mcknight MD Unavailable [phone] Favian Mcknight MD Unavailable [phone] Tatianna Horne [facility] Unavailable [phone] Lyudmila Baltazar RN Unavailable Unavailabl e Encounter Details Date Type Department Care Team (Late st Contact Info) Description 12/16/2023 [facility] [address] [place] [address] Billie Tucker RN Social History [...] on file 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 Gender Identity Not on file Sexual Orientation Not on file documented as of this encounter Plan of Treatment Upcoming Encounters Date Type Department Care Team (Late st Contact Info) Description 01/12/2025 10:00 AM BLOW MOLD OPERATOR Office Visit [facility] [address] [place] [phone] Paul Sanford MD [address] [place] [address] [phone] documented as of this encounter Visit Diagnoses Not on filedocumented in this encounter Care Teams Refrigeration Service Technician Relationship Specialty Start Date End Date Sushant Schreiber MD [facility] [address] [place] [address] PCP - General Family Medicine 12/02/21 No Ref-Primary, Physician 12/02/21 Cisco Caceres MD [address] [place] [address] [address] [place], [place] [address] Fellow Gastroenterology 12/09/21 Yung Rodriguez MD [address] [facility] [address] [place], [place] [id number] Cardiovascular Disease 12/25/21 Tatianna Horne, [facility] [address] [place] [address] Pharmacist Pharmacist Jig Builder Helper 02/06/22 Billie Tucker, RN Specialty Tectonophysicist Gastroenterology 12/10/22 Paul Sanford MD [address] [place] [address] Gastroenterology 12/25/22 Paul Sanford MD [address] [place] [address] Referring Physician Gastroenterology 01/14/23 Jt Waters MD [address] [place] [address] [phone] Dermatology 01/14/23 Jt Waters MD [address] [place] [address] Assigned Surgical Provider 01/17/23 01/28/24 Bhavik Segura PA-C [address] [place] [address] 186305 Physician Gypsum Calciner Gastroenterology 04/28/23 Paul Sanford MD [address] [place] [address] Assigned Gastroenterology Provider 07/18/23 Favian Mcknight MD [address] [place] [address] Dermatology 12/09/23 Fvaian Mcknight MD [address] [place] [address] Assigned Surgical Provider 01/29/24 Tatianna Horne [facility] [address] [place] [address] Assigned MTM Pharmacist 07/08/24 Lyudmila Baltazar, RN Home Infusion Data Conversion Analyst 08/29/24 documented as of this encounter
--- OUTSIDE RECORDS SUMMARY | 2024-12-22 05:25 | XMS_ITS | Referral Summary ---
Author Organization [facility] Address [address] [place] [address] Care Team Providers Care Mill Worker Name Role Phone Sushant Schreiber MD Primary Care Provider No Ref-Primary, Physician Unavailable [phone] Cisco Wooten MD Unavailable [phone] Yung Rodriguez MD Unavailable Tatianna Horne [facility] Unavailable [phone] Billie Tucker RN Unavailable Unavailable Megha Sanford MD Unavailable [phone] Megha Sanford MD Unavailable [phone] Jt Waters MD Unavailable Bhavik Segura PA-C Unavailable [phone] Megha Sanford MD Unavailable [phone] Favian Mcknight MD Unavailable [phone] Favian Mcknight MD Unavailable [phone] Tatianna Horne [facility] Unavailable [phone] Lyudmila Baltazar RN Unavailable Unavailabl e Encounters Date Type Department Care Team Description 12/19/2024 1:00 PM DELICATESSEN GOODS STOCK CLERK Home Care Visit [facility] [address] [place] [phone] Jonnie Mcfadden, RN 12/18/2024 [facility] [address] [place] [phone] Abhijeetmaryanne Tatiannashree Rojo, [facility] 12/06/2024 Telephone [facility] [address] [place] [phone] Denita Waddell, JAVA APPLICATION ENGINEER 12/06/2024 [facility] Medical Advice [facility] [address] [place] [address] Denita Waddell, JAVA APPLICATION ENGINEER 11/28/2024 [facility] Medical Advice [facility] [address] [place] [address] Denita Waddell, JAVA APPLICATION ENGINEER 11/17/2024 [facility] Medical Advice [facility] [address] [phone] Billie Tucker, JANELL 11/17/2024 Telephone [facility] [address] [phone] Paula Jane PA-C Appointment 11/14/2024 Telephone [facility] [address] [address] Paula Jane PA-C Appointment 11/14/2024 Telephone [facility] [address] [address] Billie Tucker, RN 11/03/2024 [facility] Medical Advice [facility] [address] [phone] Allison Steward 11/03/2024 Telephone [facility] [address] [address] Allison Steward 10/27/2024 Home Infusion [facility] [address] [place] [phone] Navjot Mantilla, [facility] Crohn's disease of both small and large intestine with other complication (H) 10/24/2024 12:00 PM DELICATESSEN GOODS STOCK CLERK Home Care Visit [facility] [address] [place] [address] Lyudmila Baltazar RN from Last [...] with 20 mL NS to flush tubing. [id number] mL 5 9:32 AM DELICATESSEN GOODS STOCK CLERK 11/14/20 24 2024 Active acetaminophen (TYLENOL) 325 MG tabletIndicatio ns:Crohn's disease of both small and large intestine with other complication (H) Take 2 tablets (650 mg) by mouth once every eight weeks. Administer 30 minutes prior to infusion 12 tablet 5 9:32 AM DELICATESSEN GOODS STOCK CLERK 11/14/20 24 2024 Active diphenhydrAMINE (BENADRYL) 25 MG capsuleIndicati ons:Crohn's disease of both small and large intestine with other complication (H) Take 2 capsules (50 mg) by mouth once every eight weeks. Administer 30 minutes prior to infusion 12 capsule 5 9:32 AM DELICATESSEN GOODS STOCK CLERK 11/14/20 24 2024 Active methylPREDNISol one Na Suc (PF) (solu-MEDROL) 40 mg in sodium chloride 0.9 % 4 mL injectionIndica tions:Crohn's disease of both small and large intestine with other complication (H) Inject 40 mg over 3-5 minutes into the vein via push once every eight weeks. Administer 30 minutes prior to infusion 60839 mL 5 9:32 AM DELICATESSEN GOODS STOCK CLERK 11/14/20 24 2024 Active sodium chloride, PF, 0.9% PF flushIndication s:Crohn's disease of both small and large intestine with other complication (H) Inject 10 mLs into the vein as needed for other (infusion reaction). For RN use only as needed for infusion reaction [id number] mL 11/14/20 24 2024 Active diphenhydrAMINE (BENADRYL) 50 MG/ML injectionIndica tions:Crohn's disease of both small and large intestine with other complication (H) Inject 1 mL (50 mg) over 3-5 minutes into the vein via push as needed for other (infusion reaction). For RN use only. Draw up in a syringe and administer IV push. Discard remainder of vial. [id number] mL 11/14/20 24 2024 Active EPINEPHrine (ANY [...] time in 5-15 minutes if symptoms persist. [id number] mL 11/14/20 24 2024 Active sodium chloride 0.9% infusionIndicat ions:Crohn's disease of both small and large intestine with other complication (H) Infuse 500 mLs into the vein as needed for other (infusion reaction). In case of mild reaction, administer via gravity at 20 mL/hr to keep vein open. In case of severe reaction, administer via gravity wide open on prime setting. [id number] mL 5 9:32 AM DELICATESSEN GOODS STOCK CLERK 11/14/20 24 2025 Active methylPREDNISol one Na Suc, PF, (SOLU-MEDROL) 125 mg/2 mL injectionIndica tions:Crohn's disease of both small and large intestine with other complication (H) Inject 2 mLs (125 mg) over 3-5 minutes into the vein via push as needed (infusion reaction). For RN use only. Reconstitute vial. Draw up methylPREDNISolone in a syringe and administer. Discard remainder of vial. [id number] mL 11/14/20 24 2024 Active sodium chloride, PF, 0.9% PF flushIndication s:Crohn's disease of both small and large intestine with other complication (H) Inject 10 mLs into the vein as needed for line flush. Flush IV before and after medication administration as directed and/or at least every 12 hours. [id number] mL 5 9:32 AM DELICATESSEN GOODS STOCK CLERK 11/14/20 24 2024 Active Emergency Supply Kit, PIV,Indications :Crohn's disease of both small and large intestine with other complication (H) Patient use for emergency only. Contents: 3 sodium chloride 0.9% flushes, 1 IV start kit, 1 microclave ext set 14, 1 each IV Cath 22 G/1 and 24G/3/4, 6 alcohol prep pads, 4 nitrile gloves (med). Call to reorder. [id number] kit 11/14/20 24 2024 Active Active Problems [...] on file Legal 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 DELICATESSEN GOODS STOCK CLERK Gender Identity Not on file Sexual Orientation Not on file Last Filed Vital Signs Vital Sign Reading Time Taken Comments Blood Pressure 124/75 12/19/2024 2:42 PM DELICATESSEN GOODS STOCK CLERK Pulse 76 12/19/2024 2:42 PM DELICATESSEN GOODS STOCK CLERK Temperature 36.7 C (98 F) 12/19/2024 2:42 PM DELICATESSEN GOODS STOCK CLERK Respiratory Rate 16 12/19/2024 2:42 PM DELICATESSEN GOODS STOCK CLERK Oxygen Saturation 98% 12/19/2024 2:42 PM DELICATESSEN GOODS STOCK CLERK Inhaled Oxygen Concentration - - Weight 129.3 kg (285 lb) 12/19/2024 1:05 PM DELICATESSEN GOODS STOCK CLERK Height 180.3 cm (5' 11) 12/19/2024 1:05 PM DELICATESSEN GOODS STOCK CLERK Body Mass Index 39.75 12/19/2024 1:05 PM DELICATESSEN GOODS STOCK CLERK Plan of Treatment Upcoming Encounters Date Type Department Care Team (Late st Contact Info) Description 01/12/2025 10:00 AM DELICATESSEN GOODS STOCK CLERK Office Visit [facility] [address] [phone] Megha Sanford MD [address] [place] [address] Procedures Procedure Name Priority Date/Time Associated Diagnosis Comments CBC WITH PLATELETS & DIFFERENTIAL Routine 12/19/2024 12:45 PM DELICATESSEN GOODS STOCK CLERK Crohn's disease of both small and large intestine without complications (H) EXTRA RED TOP TUBE (LAB USE ONLY) Routine 12/19/2024 12:45 PM DELICATESSEN GOODS STOCK CLERK Crohn's disease of both small and large intestine without complications (H) EXTRA RED TOP TUBE (LAB USE ONLY) Routine 12/19/2024 12:45 PM DELICATESSEN GOODS STOCK CLERK Crohn's disease of both small and large intestine without complications (H) EXTRA SERUM SEPARATOR TUBE (SST) (LAB USE ONLY) Routine 12/19/2024 12:45 PM DELICATESSEN GOODS STOCK CLERK Crohn's disease of both small and large intestine without complications (H) EXTRA SERUM SEPARATOR TUBE (SST) (LAB USE ONLY) Routine 12/19/2024 12:45 PM DELICATESSEN GOODS STOCK CLERK Crohn's disease of both small and large intestine without complications (H) CBC WITH PLATELETS AND DIFFERENTIAL Routine 12/19/2024 12:45 PM DELICATESSEN GOODS STOCK CLERK Crohn's disease of both small and large intestine without complications (H) VITAMIN B12 Routine 12/19/2024 12:45 PM DELICATESSEN GOODS STOCK CLERK Crohn's disease of both small and large intestine without complications (H) CRP INFLAMMATION Routine 12/19/2024 12:4 5 PM DELICATESSEN GOODS STOCK CLERK Crohn's disease of both small and large intestine without complications (H) HEPATIC FUNCTION PANEL Routine 12/19/2024 12:45 PM DELICATESSEN GOODS STOCK CLERK Crohn's disease of both small and large intestine without complications (H) HIV ANTIGEN ANTIBODY COMBO Add-On 01/20/2024 10:09 AM DELICATESSEN GOODS STOCK CLERK Crohn's disease of small intestine with abscess (H) High risk medication use HEPATITIS C ANTIBODY Add-On 01/20/2024 10:09 AM DELICATESSEN GOODS STOCK CLERK Crohn's disease of small intestine with abscess (H) High risk medication use BASIC METABOLIC PANEL Routine 12/08/2023 4:39 PM DELICATESSEN GOODS STOCK CLERK Arthralgia, unspecified joint High risk medication use CRP elevated COLONOSCOPY Routine 09/29/2023 9:29 AM DELICATESSEN GOODS STOCK CLERK from Last 3 Months or Most Recently Relevant to Health Maintenance Results * (ABNORMAL) CBC with platelets and differential (12/19/2024 12:45 PM DELICATESSEN GOODS STOCK CLERK) WBC Count 9.2 4.0 - 11.0 10e3/uL 12/19/2024 4:33 PM DELICATESSEN GOODS STOCK CLERK [facility] RBC Count 4.23(L) 4.40 - 5.90 10e6/uL 12/19/2024 4:33 PM DELICATESSEN GOODS STOCK CLERK [facility] Hemoglobin 14.8 13.3 - 17.7 g/dL 12/19/2024 4:33 PM DELICATESSEN GOODS STOCK CLERK [facility] Hematocrit 40.6 40.0 - 53.0 % 12/19/2024 4:33 PM DELICATESSEN GOODS STOCK CLERK [facility] MCV 96 78 - 100 fL 12/19/2024 4:33 PM DELICATESSEN GOODS STOCK CLERK [facility] MCH 35.0(H) 26.5 - 33.0 pg 12/19/2024 4:33 PM DELICATESSEN GOODS STOCK CLERK [facility] MCHC 36.5 31.5 - 36.5 g/dL 12/19/2024 4:33 PM DELICATESSEN GOODS STOCK CLERK [facility] RDW 12.6 10.0 - 15.0 % 12/19/2024 4:33 PM DELICATESSEN GOODS STOCK CLERK [facility] Platelet Count 239 150 - 450 10e3/uL 12/19/2024 4:33 PM DELICATESSEN GOODS STOCK CLERK [facility] % Neutrophils 65 % 12/19/2024 4:33 PM DELICATESSEN GOODS STOCK CLERK [facility] % Lymphocytes 25 % 12/19/2024 4:33 PM DELICATESSEN GOODS STOCK CLERK [facility] % Monocytes 7 % 12/19/2024 4:33 PM DELICATESSEN GOODS STOCK CLERK [facility] % Eosinophils 1 % 12/19/2024 4:33 PM DELICATESSEN GOODS STOCK CLERK [facility] % Basophils 1 % 12/19/2024 4:33 PM DELICATESSEN GOODS STOCK CLERK [facility] % Immature Granulocytes 0 % 12/19/2024 4:33 PM DELICATESSEN GOODS STOCK CLERK [facility] NRBCs per 100 WBC 0 <1 /100 025 4:33 PM DELICATESSEN GOODS STOCK CLERK [facility] Absolute Neutrophils 6.0 1.6 - 8.3 10e3/uL 12/19/2024 4:33 PM DELICATESSEN GOODS STOCK CLERK [facility] Absolute Lymphocytes 2.3 0.8 - 5.3 10e3/uL 12/19/2024 4:33 PM DELICATESSEN GOODS STOCK CLERK [facility] Absolute Monocytes 0.7 0.0 - 1.3 10e3/uL 12/19/2024 4:33 PM DELICATESSEN GOODS STOCK CLERK [facility] Absolute Eosinophils 0.1 0.0 - 0.7 10e3/uL 12/19/2024 4:33 PM DELICATESSEN GOODS STOCK CLERK [facility] Absolute Basophils 0.1 0.0 - 0.2 10e3/uL 12/19/2024 4:33 PM DELICATESSEN GOODS STOCK CLERK [facility] Absolute Immature Granulocytes 0.0 <=0.4 10e3/uL 12/19/2024 4:33 PM DELICATESSEN GOODS STOCK CLERK [facility] Absolute NRBCs 0.0 10e3/uL 12/19/2024 4:33 PM DELICATESSEN GOODS STOCK CLERK [facility] Blood BLOOD SPECIMEN / Unknown Client Draw / Unknown 12/19/2024 12:45 PM DELICATESSEN GOODS STOCK CLERK 12/19/2024 4:19 PM DELICATESSEN GOODS STOCK CLERK Megha Sanford MD LAB - BLOOD ORDERABLE S Final Result LABORATORY [facility] [address] [facility][1], Room [address] * Extra SST Tube (LAB USE ONLY) (12/19/2024 12:45 PM DELICATESSEN GOODS STOCK CLERK) Only the most recent of2 resultswithin the time period is included. Hold Specimen [facility] 12/19/2024 5:31 PM DELICATESSEN GOODS STOCK CLERK LABORATORY Blood BLOOD SPECIMEN / Unknown Client Draw / Unknown 12/19/2024 12:45 PM DELICATESSEN GOODS STOCK CLERK 12/19/2024 4:19 PM DELICATESSEN GOODS STOCK CLERK Megha Sanford MD LAB - BLOOD ORDERABLE S Final Result LABORATORY [facility] [address] [facility][1], Room [address] * Extra Red Top Tube (LAB USE ONLY) (12/19/2024 12:45 PM DELICATESSEN GOODS STOCK CLERK) Only the most recent of2 resultswithin the time period is included. Hold Specimen [facility] 12/19/2024 5:31 PM DELICATESSEN GOODS STOCK CLERK [facility] Blood BLOOD SPECIMEN / Unknown Client Draw / Unknown 12/19/2024 12:45 PM DELICATESSEN GOODS STOCK CLERK 12/19/2024 4:19 PM DELICATESSEN GOODS STOCK CLERK us Megha Sanford MD LAB - BLOOD ORDERABLE S Final Result [facility] [address] [facility][1], Room [address] * Hepatic function panel (12/19/2024 12:45 PM DELICATESSEN GOODS STOCK CLERK) Protein Total 7.4 6.4 - 8.3 g/dL 12/19/2024 5:26 PM DELICATESSEN GOODS STOCK CLERK [facility] Albumin 4.3 3.5 - 5.2 g/dL 12/19/2024 5:26 PM DELICATESSEN GOODS STOCK CLERK [facility] Bilirubin Total 0.3 <=1.2 mg/dL 12/19/2024 5:26 PM DELICATESSEN GOODS STOCK CLERK [facility] Alkaline Phosphatase 120 40 - 150 U/L 12/19/2024 5:26 PM DELICATESSEN GOODS STOCK CLERK [facility] AST 34 0 - 45 U/L 12/19/2024 5:26 PM DELICATESSEN GOODS STOCK CLERK [facility] ALT 41 0 - 70 U/L 12/19/2024 5:26 PM DELICATESSEN GOODS STOCK CLERK [facility] Bilirubin Direct <0.20 0.00 - 0.30 mg/dL 12/19/2024 5:26 PM DELICATESSEN GOODS STOCK CLERK [facility] Blood BLOOD SPECIMEN / Unknown Client Draw / Unknown 12/19/2024 12:45 PM DELICATESSEN GOODS STOCK CLERK 12/19/2024 4:19 PM DELICATESSEN GOODS STOCK CLERK us Megha Sanford MD LAB - BLOOD ORDERABLE S Final Result [facility] [address] [facility][1], [address] [id number] [place] [address] * (ABNORMAL) CRP inflammation (12/19/2024 12:45 PM DELICATESSEN GOODS STOCK CLERK) CRP Inflammation 6.26(H) <5.00 mg/L 12/19/2024 5:26 PM DELICATESSEN GOODS STOCK CLERK [facility] Blood BLOOD SPECIMEN / Unknown Client Draw / Unknown 12/19/2024 12:45 PM DELICATESSEN GOODS STOCK CLERK 12/19/2024 4:19 PM DELICATESSEN GOODS STOCK CLERK us Megha Sanford MD LAB - BLOOD ORDERABLE S Final Result [facility]ORATORY [facility] [address] [facility][1], Room [address] [phone] * Vitamin B12 (12/19/2024 12:45 PM DELICATESSEN GOODS STOCK CLERK) Vitamin B12 521 232 - 1,245 pg/mL 12/19/2024 5:26 PM DELICATESSEN GOODS STOCK CLERK LABORATORY Blood BLOOD SPECIMEN / Unknown Client Draw / Unknown 12/19/2024 12:45 PM DELICATESSEN GOODS STOCK CLERK 12/19/2024 4:19 PM DELICATESSEN GOODS STOCK CLERK us Megha Sanford MD LAB - BLOOD ORDERABLE S Final Result Performing Organization Address City/[facility]/ZIP Co de Phone Number LABORATORY [facility] [address] [facility][1], Room [address] [phone] * HIV Antigen Antibody Combo [place] (01/20/2024 10:09 AM DELICATESSEN GOODS STOCK CLERK) HIV Antigen Antibody Combo Nonreactive Nonreactive 01/20/2024 10:07 PM DELICATESSEN GOODS STOCK CLERK LABORATORY Comment:Negative HIV-1/-2 an tigen and antibody screening test results usually indicate the absence of HIV-1 and HIV-2 infection. However, such negative results do not rule-out acute HIV infection. If acute HIV-1 or HIV-2 infection is suspected, detection of HIV-1 or HIV-2 RNA is recommended. Blood STRUCTURE OF RIGHT UPPER LIMB / Unknown Venipuncture / Unknown 01/20/2024 10:09 AM DELICATESSEN GOODS STOCK CLERK 01/20/2024 10:09 AM DELICATESSEN GOODS STOCK CLERK Miguel Stoll MD LAB - BLOOD ORDERABLES Fi nal Result LABORATORY [facility] [address] [facility][1], Room [address] [phone] [phone] * Hepatitis C antibody (01/20/2024 10:09 AM DELICATESSEN GOODS STOCK CLERK) Pathologist [facility] Hepatitis C Antibody Nonreactive Nonreactive 01/20/2024 10:28 PM DELICATESSEN GOODS STOCK CLERK [facility] Comment:A nonreactive screen ing test [...] Unknown Venipuncture / Unknown 01/20/2024 10:09 AM DELICATESSEN GOODS STOCK CLERK 01/20/2024 10:09 AM DELICATESSEN GOODS STOCK CLERK us Miguel Stoll MD LAB - BLOOD ORDERABLES Fi nal Result LABORATORY [facility] [address] [facility][1], [address] [address], [facility] [phone] * (ABNORMAL) Basic metabolic panel (12/08/2023 4:39 PM DELICATESSEN GOODS STOCK CLERK) [facility] Sodium 139 135 - 145 mmol/L 12/08/2023 5:06 PM [facility] - CORE LAB Comment:Reference [...] 3.4 - 5.3 mmol/L 12/08/2023 5:06 PM [facility] - [facility]ORE [facility] Chloride 102 98 - 107 mmol/L 12/08/2023 5:06 PM [facility] - [facility]ORE [facility] Carbon Dioxide (CO2) 28 22 - 29 mmol/L 12/08/2023 5:06 PM [facility] - [facility] Anion Gap 9 7 - 15 mmol/L 12/08/2023 5:06 PM [facility] - [facility] Urea Nitrogen 13.7 6.0 - 20.0 mg/dL 12/08/2023 5:06 PM DELICATESSEN GOODS STOCK CLERK [facility] - CORE LAB Creatinine 0.87 0.67 - 1.17 mg/dL 12/08/2023 5:06 PM DELICATESSEN GOODS STOCK CLERK [facility] - CORE LAB GFR Estimate >90 >60 mL/min/1. 73m2 12/08/2023 5:06 PM DELICATESSEN GOODS STOCK CLERK [facility] - CORE LAB Calcium 9.3 8.6 - 10.0 mg/dL 12/08/2023 5:06 PM DELICATESSEN GOODS STOCK CLERK [facility] - CORE LAB Glucose 108(H) 70 - 99 mg/dL 12/08/2023 5:06 PM DELICATESSEN GOODS STOCK CLERK [facility] - CORE LAB Blood STRUCTURE OF LEFT UPPER LIMB / Unknown Venipuncture / Unknown 12/08/2023 4:39 PM DELICATESSEN GOODS STOCK CLERK 12/08/2023 4:39 PM DELICATESSEN GOODS STOCK CLERK us Megha Sanford MD LAB - BLOOD ORDERABLE S Final Result [facility] - CORE LAB [facility] [address] [place] [address] * COLONOSCOPY (09/29/2023 9:29 AM DELICATESSEN GOODS STOCK CLERK) [facility] COLONOSCOPY [facility] [address] [place] [address] [phone] Endoscopy Department Patient Name: Demetri Castillo Procedure Date: 09/29/2023 9:29 AM Date of : 1990 Admit Type: Outpatient Age: 33 Room: [facility] PROCEDURE ROOM 02 Gender: Male Note Status: [...] 12:00:16 PM RADIOLOGY RESULTS 09/29/2023 9:29 AM DELICATESSEN GOODS STOCK CLERK us Megha Sanford MD PROCEDURES Final Result RADIOLOGY RESULTS from Last 3 Months or Most Recently Relevant to Health Maintenance Insurance [place] [address] [email or web address] COUNTY HOSPITALPriceTag [facility] Member Subscriber Plan / Payer (Ef fective 2022-Present) Name:Demetri Castillo Relation to Subscriber:Self Name:Demetri Castillo Payer ID:[id number] (NAIC) Type:PPO Address: [facility] [id number] [place] [id number] [facility] COPAY * Guarantor: Demetri Castillo Account Type Relation to Patient Date of Phone Billing Address Medication Therapy Self 1990 [address] [place] [address] [facility] [facility] Advance Directives For more information, please contact: [phone] * Full Code (Latest Code Status on [...] patie nt/ legal decision maker Care Teams Mill Worker Relationship Specialty Start Date End Date Sushant Schreiber MD [address] [address] PCP - General Family Medicine 12/02/21 No Ref-Primary, Physician 12/02/21 Cisco Wooten MD [address] [place] [place] [address] [phone] Fellow Gastroenterology 12/09/21 Yung Rodriguez MD [address] [facility] [address] [place] [address] [phone] Cardiovascular Disease 12/25/21 Tatianna Horne, [facility] [address] [place] [address] [phone] Pharmacist Pharmacist Career Services Manager 02/06/22 Billie Tucker, JANELL Specialty Medical Receptionist [facility] 12/10/22 Megha Sanford MD [address] [place] [address] [phone] Gastroenterology 12/25/22 Megha Sanford MD [address] [place] [address] [phone] Referring Physician Gastroenterology 01/14/23 Jt Waters MD [address] [place], [place] [phone] Dermatology 01/14/23 Bhavik Segura PA-C [address] [place] [address] [phone] Physician Document Management Specialist Gastroenterology 04/28/23 Megha Sanford MD [address] [place] [phone] Assigned Gastroenterology Provider 07/18/23 Favian Mcknight MD [address] [place] [phone] Dermatology 12/09/23 Favian Mcknight MD [address] [place] [address] [phone] Assigned Surgical Provider 01/29/24 Tatianna Horne [facility] [address] [place] [address] [phone] Assigned MTM Pharmacist 07/08/24 Lyudmila Baltazar, RN Home Infusion Textile Pin Worker 08/29/24
--- OUTSIDE RECORDS SUMMARY | 2024-12-22 05:25 | XMS_ITS | Encounter Summary ---
Author Organization [place] Address [address] [place] [address] Care Team Providers Care Quality Assurance Representative Name Role Phone Sushant Schreiber MD Primary Care Provider [phone] No Ref-Primary, Physician Unavailable [phone] Cisco Caceres MD Unavailable [phone] Yung Rodriguez MD Unavailable Tatianna Horne [facility] Unavailable [phone] Billie Tucker RN Unavailable Unavailable Paul Sanford MD Unavailable [phone] Paul Sanford MD Unavailable [phone] Jt Waters MD Unavailable Jt Waters MD Unavailable Bhavik Segura PA-C Unavailable +[phone] Paul Sanford MD Unavailable [phone] Favian Mcknight MD Unavailable [phone] Favian Mcknight MD Unavailable [phone] Tatianna Horne [facility] Unavailable [phone] Lyudmila Baltazar RN Unavailable Unavailabl e Encounter Details Date Type Department Care Team (Late st Contact Info) Description 01/12/2024 Jayme Forbes [facility] D[facility]atologic Surgery Clinic [address] 3rd [place] [address] [facility] Social History Tobacco Use Types [...] on file Legal 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 POLICE CHIEF Gender Identity Not on file Sexual Orientation Not on file documented as of this encounter Plan of Treatment Upcoming Encounters Date Type Department Care Team (Late st Contact Info) Description 01/12/2025 10:00 AM POLICE CHIEF Office Visit [facility] Gastroenterology Clinic [address]th [place] [phone] Paul Sanford MD [address] [place] [address] 419175 documented as of this encounter Visit Diagnoses Not on filedocumented in this encounter Care Teams Quality Assurance Representative Relationship Specialty Start Date End Date Sushant Schreiber MD [facility] [address] [place] [address] PCP - General Family Medicine 12/02/21 No Ref-Primary, Physician 12/02/21 Cisco Caceres MD [address] [place] [address] 284 [place], [place] 357[address] Fellow Gastroenterology 12/09/21 Yung Rodriguez MD [address] [facility] [address] [place], [place] 395[address] Cardiovascular Disease 12/25/21 Tatianna Horne, [facility] [address] [place] [address] Pharmacist Pharmacist Bottled Beverage Inspector 02/06/22 Billie Tucker, RN Specialty Occupational Health Technician Gastroenterology 12/10/22 Paul Sanford MD [address] [place] [address] 11890 Gastroenterology 12/25/22 Paul Sanford MD [address] [place] [address] Referring Physician Gastroenterology 01/14/23 Jt Waters MD [address] [place] [address] 13687 Dermatology 01/14/23 Jt Waters MD [address] [place] [address] 47296 Assigned Surgical Provider 01/17/23 01/28/24 Bhavik Segura PA-C [address] [place] [address] Physician Floral Merchandiser Gastroenterology 04/28/23 Paul Sanford MD [address] [place] [address] Assigned Gastroenterology Provider 07/18/23 Favian Mcknight MD [address] [place] [address] Dermatology 12/09/23 Favian Mcknight MD [address] [place] [address]40 Assigned Surgical Provider 01/29/24 Tatianna Horne [facility] 9 [place] [address] Assigned MTM Pharmacist 07/08/24 Lyudmila Baltazar, RN Home Infusion Centrex Radio Operator 08/29/24 documented as of this encounter
--- OUTSIDE RECORDS SUMMARY | 2024-12-22 05:25 | XMS_ITS | Encounter Summary ---
Author Organization [place] Address [address] [place] [address] 13956 Care Team Providers Care Day Camp Counselor Name Role Phone Sushant Schreiber MD Primary Care Provider No Ref-Primary, Physician Unavailable [phone] Cisco Caceres MD Unavailable [phone] Sabiha Hogan APRN THERAPEUTIC RADIOLOGIST Unavailable [phone] Yung Rodriguez MD Unavailable Tatianna Horne [facility] Unavailable Tatianna Horne [facility] Unavailable [phone] Tatianna Horne [facility] Unavailable [phone] Billie Tucker RN Unavailable Unavailable Chantale Grande PA-C Unavailable [phone] Paul Sanford MD Unavailable [phone] Paul Sanford MD Unavailable Jt Waters MD Unavailable Jt Waters MD Unavailable Bhavik Segura PA-C Unavailable [phone] Paul Sanford MD Unavailable Favian Mcknight MD Unavailable [phone] Favian Mcknight MD Unavailable [phone] Tatianna Horne [facility] Unavailable Lyudmila Baltazar RN Unavailable Unavailabl e Encounter Details Date Type Department Care Team (Late Contact Info) Description 01/29/2022 MyC Medical Advice [facility] Gastroenterology Clinic [address] [address] Michelle Enamorado RN Social History [...] on file 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 Gender Identity Not on file Sexual Orientation [...] (Late Contact Info) Description 01/12/2025 10:00 AM STILL OPERATOR WHISKEY Office Visit [facility] Gastroenterology Clinic [address] [address] Paul Sanford MD [address] [place] [address] documented as of this encounter Visit Diagnoses Not on filedocumented in this encounter Additional Health Concerns Infection Onset Date Last Indicated Resolved Time COVID-19 02/27/2022 02/27/2022 03/20/2022 11:3 9 PM CDT documented as of this encounter Care Teams Day Camp Counselor Relationship Specialty Start Date End Date Sushant Schreiber MD [facility] [address] [address] PCP - General Family Medicine 12/02/21 No Ref-Primary, Physician 12/02/21 Cisco Caceres MD [address] [place] [address] [id number] Fellow Gastroenterology 12/09/21 Sabiha Hogan APRN THERAPEUTIC RADIOLOGIST [address] [place] 7[address]05 Assigned Heart and Vascular Provider 12/15/21 02/13/23 Yung Rodriguez MD [address] [place], [place] 889095 Cardiovascular Disease 12/25/21 Tatianna Horne [facility] [address] [place] [address] 738455 Pharmacist Pharmacist Fence Builder 02/06/22 Tatianna Horne [facility] [address] [place] [address] [phone] Assigned MTM Pharmacist 04/12/22 Tatianna Horne [facility] [address] [place] [address] [phone] Assigned MTM Pharmacist 08/13/22 Billie Tucker, RN Specialty Nurse Case Manager Gastroenterology 12/10/22 Chantale Grande PA-C [address] [place] [address] Physician Home Health Travel Ot Dermatology 12/25/22 01/13/23 Paul Sanford MD 500 [place] [address] MD Gastroenterology 12/25/22 Paul Sanford MD [address] [place] [address] Referring Physician Gastroenterology 01/14/23 Jt Waters MD 500 [place] [address] MD Dermatology 01/14/23 Jt Waters MD [address] [place] [address] Assigned Surgical Provider 01/17/23 01/28/24 Bhavik Segura PA-C [address] [place] [address] 12918 Physician Home Health Travel Ot Gastroenterology 04/28/23 Paul Sanford MD 500 [place] [address] Assigned Gastroenterology Provider 07/18/23 Favian Mcknight MD [address] [place] [address] Dermatology 12/09/23 Favian Mcknight MD [address] [place], [place] 563775 Assigned Surgical Provider 01/29/24 Tatianna Horne [facility] [address] [place], [place] 914[address] Assigned MTM Pharmacist 07/08/24 Lyudmila Baltazar, RN Home Infusion Certified Physical Therapist Assistant 08/29/24 documented as of this encounter
--- OUTSIDE RECORDS SUMMARY | 2024-12-22 05:25 | XMS_ITS | Encounter Summary ---
Author Organization [place] Address [address] [place] [address] Care Team Providers Care Knuckler Name Role Phone Sushant Schreiber MD Primary Care Provider No Ref-Primary, Physician Unavailable [phone] Cisco Caceres MD Unavailable [phone] Sabiha Hogan APRN FINANCIAL SERVICE REP Unavailable [phone] Yung Rodriguez MD Unavailable Tatianna Horne [facility] Unavailable Tatianna Horne [facility] Unavailable [phone] Tatianna Horne [facility] Unavailable [phone] Billie Tucker RN Unavailable Unavailable Chantale Grande PA-C Unavailable [phone] Paul Sanford MD Unavailable [phone] Paul Sanford MD Unavailable Jt Waters MD Unavailable Jt Waters MD Unavailable Bhavik Segura PA-C Unavailable [phone] Paul Sanford MD Unavailable Favian Mcknight MD Unavailable [phone] Favian Mcknight MD Unavailable [phone] Tatianna Horne [facility] Unavailable Lyudmila Baltazar RN Unavailable Unavailabl e Encounter Details Date Type Department Care Team (Late Contact Info) Description 07/02/2022 MyC Medical Advice [address]th [place] [phone] Billie Santo RN Social History Tobacco Use [...] on file 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 Gender Identity Not on file Sexual Orientation Not on file documented as of this encounter Plan of Treatment Upcoming Encounters Date Type Department Care Team (Late Contact Info) Description 01/12/2025 10:00 AM AREA LOSS PREVENTION MANAGER Office Visit [facility] Gastroenterology Clinic [address] [place] [address] Paul Sanford MD [address] [place] [address] 198575 documented as of this encounter Visit Diagnoses Not on filedocumented in this encounter Care Teams Knuckler Relationship Specialty Start Date End Date Sushant Schreiber MD [facility] [address] [address] PCP - General Family Medicine 12/02/21 No Ref-Primary, Physician 12/02/21 Cisco Caceres MD [address] [place] [address] Fellow Gastroenterology 12/09/21 Sabiha Hogan APRN FINANCIAL SERVICE REP [address] [place] [address] Assigned Heart and Vascular Provider 12/15/21 02/13/23 Yung Rodriguez MD [address] [place], [place] 1285[address] Cardiovascular Disease 12/25/21 [facility] [address] [place] [address] [phone] Pharmacist Pharmacist Test Car Driver 02/06/22 [facility] [address] [place] [address] 208015 Assigned MTM Pharmacist 04/12/22 [facility] [address] [place] [address] 203185 Assigned MTM Pharmacist 08/13/22 Billie Tucker, RN Specialty Kettle Fry Cook Operator Gastroenterology 12/10/22 Chantale Grande PACrispinC [address] [place] [address] Physician Facilities Maintenance Technician Dermatology 12/25/22 01/13/23 Paul Sanford MD [address] [place], [place] 401165 Gastroenterology 12/25/22 Paul Sanford MD [address] [place], [place] 699155 Referring Physician Gastroenterology 01/14/23 Jt Waters MD 500 [place] [address] Dermatology 01/14/23 Jt Waters MD 500 [place] [address] Assigned Surgical Provider 01/17/23 01/28/24 Bhavik Segura PA-C [address] [place] [address] 897835 Physician Facilities Maintenance Technician Gastroenterology 04/28/23 Paul Sanford MD [address] [place] [address] Assigned Gastroenterology Provider 07/18/23 Favian Mcknight MD [address] [place] [address] Dermatology 12/09/23 Favian Mcknight MD [address] [place] [address] Assigned Surgical Provider 01/29/24 Tatianna Horne [facility] [address] [place] [address] [phone] Assigned MTM Pharmacist 07/08/24 Lyudmila Baltazar, RN Home Infusion Hogshead Cooper 08/29/24 documented as of this encounter
--- OUTSIDE RECORDS SUMMARY | 2024-12-22 05:25 | XMS_ITS | Encounter Summary ---
Author Organization [place] Address [address] [place] [address] Care Team Providers Care Dental Appliance Mechanic Name Role Phone Sushant Schreiber MD Primary Care Provider [phone] No Ref-Primary, Physician Unavailable [phone] Cisco Caceres MD Unavailable [phone] Sabiha Hogan APRN WILL CALL ORDER CLERK Unavailable [phone] Yung Rodriguez MD Unavailable Tatianna Horne [facility] Unavailable Tatianna Horne [facility] Unavailable [phone] Tatianna Horne [facility] Unavailable [phone] Billie Tucker RN Unavailable Unavailable Chantale Grande PA-C Unavailable [phone] Paul Sanford MD Unavailable Paul Sanford MD Unavailable [phone] Jt Waters MD Unavailable Jt Waters MD Unavailable Bhavik Segura PA-C Unavailable [phone] Paul Sanford MD Unavailable Favian Mcknight MD Unavailable [phone] Favian Mcknight MD Unavailable [phone] TroTatianna cordoba [facility] Unavailable Lyudmila Baltazar RN Unavailable Unavailabl e Encounter Details Date Type Department Care Team (Late Contact Info) Description 02/21/2022 MyC Medical Advice [facility] [place] [address] [facility] [address] [place] [phone] Yung Rodriguez MD [address] [facility] [address] [place] [id number] Social History Tobacco Use Types Packs/Day Years [...] on file Legal 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 RN DELIVERY Gender Identity Not on file Sexual Orientation [...] (Late Contact Info) Description 01/12/2025 10:00 AM RN DELIVERY Office Visit [facility] Gastroenterology Clinic [address]th [place] [address] Paul Sanford MD [address] [place] [address] documented as of this encounter Visit Diagnoses Not on filedocumented in this encounter Additional Health Concerns Infection Onset Date Last Indicated Resolved Time COVID-19 02/27/2022 02/27/2022 03/20/2022 11:3 9 PM CDT documented as of this encounter Care Teams Dental Appliance Mechanic Relationship Specialty Start Date End Date Sushant Schreiber MD [facility] & [address] [address] PCP - General Family Medicine 12/02/21 No Ref-Primary, Physician 12/02/21 Cisco Caceres MD [address] [place] [address] [id number] Fellow Gastroenterology 12/09/21 Sabiha Hogan APRN WILL CALL ORDER CLERK [address] [place], [place] 996385 Assigned Heart and Vascular Provider 12/15/21 02/13/23 Yung Rodriguez MD [address] [place], [place] 6[address] Cardiovascular Disease 12/25/21 [facility] [address] [place] [address] [phone] Pharmacist Pharmacist Bobbin Sorter 02/06/22 [facility] [address] [place] [address] [phone] Assigned MTM Pharmacist 04/12/22 Tatianna Horne [facility] [address] [place] [address] [phone] Assigned MTM Pharmacist 08/13/22 Billie Tucker, RN Specialty Computer Numerical Control Operator Gastroenterology 12/10/22 Chantale Grande, PACrispinC [address] [place] [address] Physician Food Quality Tester Dermatology 12/25/22 01/13/23 Paul Sanford MD [address] [place] [address] MD Gastroenterology 12/25/22 Paul Sanford MD [address] [place] [address] Referring Physician Gastroenterology 01/14/23 Jt Waters MD 500 [place] [address] Dermatology 01/14/23 Jt Waters MD [address] [place] [address] Assigned Surgical Provider 01/17/23 01/28/24 Bhavik Segura PA-C [address] [place] [address] Physician Food Quality Tester Gastroenterology 04/28/23 Paul Sanford MD [address] [place] [address] Assigned Gastroenterology Provider 07/18/23 Favian Mcknight MD [address] [place] [address] Dermatology 12/09/23 Favian Mcknight MD [address] [place] [address] Assigned Surgical Provider 01/29/24 Tatianna Horne, [facility] 9 [place] [address] Assigned MTM Pharmacist 07/08/24 Lyudmila Baltazar, RN Home Infusion Academic Manager 08/29/24 documented as of this encounter
--- OUTSIDE RECORDS SUMMARY | 2024-12-22 05:25 | XMS_ITS | Encounter Summary ---
Author Organization [place] Address [address] [place] [address] Care Team Providers Care Fine Sander Name Role Phone Sushant Schreiber MD Primary Care Provider No Ref-Primary, Physician Unavailable [phone] Cisco Caceres MD Unavailable [phone] Sabiha Hogan APRN, CNP Unavailable [phone] Yung Rodriguez MD Unavailable Tatianna Horne [facility] Unavailable Tatianna Horne [facility] Unavailable [phone] Billie Tucker RN Unavailable Unavailable Chantale Grande PA-C Unavailable [phone] Paul Sanford MD Unavailable [phone] Paul Sanford MD Unavailable [phone] Jt Waters MD Unavailable Jt Waters MD Unavailable Bhavik Segura PA-C Unavailable [phone] Paul Sanford MD Unavailable Favian Mcknight MD Unavailable [phone] Favian Mcknight MD Unavailable [phone] Tatianna Horne [facility] Unavailable Lyudmila Baltazar RN Unavailable Unavailabl e Encounter Details Date Type Department Care Team (Late Contact Info) Description 08/12/2022 MyC Medical Advice [facility] Gastroenterology [address] [phone] Mikala Kennedy CMA Social History Tobacco Use [...] file 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 Gender Identity Not on file Sexual Orientation Not on file documented as of this encounter Plan of Treatment Upcoming Encounters Date Type Department Care Team (Late Contact Info) Description 01/12/2025 10:00 AM POLICE ARTIST Office Visit [facility] Gastroenterology [address] [address] Paul Sanford MD [address] [place] [address] 808445 documented as of this encounter Visit Diagnoses Not on filedocumented in this encounter Care Teams Fine Sander Relationship Specialty Start Date End Date Sushant Schreiber MD [facility] & [address] [address] PCP - General Family Medicine 12/02/21 No Ref-Primary, Physician 12/02/21 Cisco Caceres MD [address] [place] [address] Fellow Gastroenterology 12/09/21 Sabiha Hogan APRN SPA HOST [address] [place] [address] Assigned Heart and Vascular Provider 12/15/21 02/13/23 Yung Rodriguez MD [address] [place] [address] Cardiovascular Disease 12/25/21 Tatianna Horne [facility] [address] [place] [address] Pharmacist Pharmacist Stem Roller 02/06/22 Tatianna Horne [facility] [address] [place] [address] Assigned MTM Pharmacist 08/13/22 Billie Tucker, JANELL Specialty Flying Shear Operator Gastroenterology 12/10/22 Chantale Grande PABeti [address] [place] [address] Physician General Counsel Dermatology 12/25/22 01/13/23 Paul Sanford MD 500 [place] [address] Gastroenterology 12/25/22 Paul Sanford MD 500 [place] [address] Referring Physician Gastroenterology 01/14/23 Jt Waters MD 500 [place] [address] Dermatology 01/14/23 Jt Waters MD 500 [place] [address] Assigned Surgical Provider 01/17/23 01/28/24 Bhavik Segura PA-C [address] [place] [address] Physician General Counsel Gastroenterology 04/28/23 Paul Sanford MD [address] [place] [address] Assigned Gastroenterology Provider 07/18/23 Favian Mcknight MD [address] [place] [address] MD Dermatology 12/09/23 Favian Mcknight MD [address] [place] [address] Assigned Surgical Provider 01/29/24 Tatianna Horne [facility] [address] [place] [address] Assigned MTM Pharmacist 07/08/24 Lyudmila Baltazar, RN Home Infusion Aviation Support Equipment Repairer 08/29/24 documented as of this encounter
--- OUTSIDE RECORDS SUMMARY | 2024-12-22 05:26 | XMS_ITS | Encounter Summary ---
Author Organization [place] Address [address] [place] [address] Care Team Providers Care Wax Room Supervisor Name Role Phone Sushant Schreiber MD Primary Care Provider [phone] No Ref-Primary, Physician Unavailable [phone] Cisco Caceres MD Unavailable [phone] Yung Rodriguez MD Unavailable Tatianna Horne [facility] Unavailable Tatianna Horne [facility] Unavailable [phone] Billie Tucker RN Unavailable Unavailable Paul Sanford MD Unavailable Paul Sanford MD Unavailable [phone] Jt Waters MD Unavailable Jt Waters MD Unavailable Bhavik Segura PA-C Unavailable [phone] Paul Sanford MD Unavailable [phone] Favian Mcknight MD Unavailable [phone] Favian Mcknight MD Unavailable [phone] Tatianna Horne [facility] Unavailable [phone] Lyudmila Baltazar RN Unavailable Unavailabl e Encounter Details Date Type Department Care Team (Late st Contact Info) Description 06/01/2023 [facility] Gastro[facility] Clinic [address] [phone] Diony Drummond Social History Tobacco Use Types [...] on file 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 [address] [place] [address] PCP - General Family Medicine 12/02/21 No Ref-Primary, Physician 12/02/21 Cisco Caceres MD [address] [place] [address] 284 [place] [address] Fellow Gastroenterology 12/09/21 Yung Rodriguez MD [address] [place] [address] Cardiovascular Disease 12/25/21 [facility] 9 [place] [address] Pharmacist Pharmacist Mock Up Maker 02/06/22 [facility] [address] [place] [address] Assigned MTM Pharmacist 08/13/22 Billie Tucker, JANELL Specialty Heater Room Helper Gastroenterology 12/10/22 Paul Sanford MD [address] [place] [address] Gastroenterology 12/25/22 Paul Sanford MD 500 [place], [place] 126905 Referring Physician Gastroenterology 01/14/23 Jt Waters MD 500 [place], [place] [address] Dermatology 01/14/23 Jt Waters MD 500 [place] [address] Assigned Surgical Provider 01/17/23 01/28/24 Bhavik Segura PA-C 9 [place] [address] Physician Appeals Referee Gastroenterology 04/28/23 Paul Sanford MD [address] [place] [address] Assigned Gastroenterology Provider 07/18/23 Favian Mcknight MD [address] [place] [address] MD Dermatology 12/09/23 Favian Mcknight MD [address] [place] [address] Assigned Surgical Provider 01/29/24 Tatianna Horne [facility] [address] [place] [address] Assigned MTM Pharmacist 07/08/24 Lyudmila Baltazar, RN Home Infusion Follow Up Clerk 08/29/24 documented as of this encounter
--- OUTSIDE RECORDS SUMMARY | 2024-12-22 05:26 | XMS_ITS | Encounter Summary ---
Author Organization [place] Address [address] [place] [address] Care Team Providers Care Gasoline Finisher Name Role Phone Sushant Schreiber MD Primary Care Provider [phone] No Ref-Primary, Physician Unavailable [phone] Cisco Caceres MD Unavailable [phone] Yung Rodriguez MD Unavailable Tatianna Horne [facility] Unavailable [phone] Billie Tucker RN Unavailable Unavailable Paul Sanford MD Unavailable [phone] Paul Sanford MD Unavailable [phone] Jt Waters MD Unavailable Jt Waters MD Unavailable Bhavik Segura PA-C Unavailable [phone] Paul Sanford MD Unavailable [phone] Favian Mcknight MD Unavailable [phone] Favian Mcknight MD Unavailable [phone] Tatianna Horne [facility] Unavailable [phone] Lyudmila Baltazar RN Unavailable Unavailabl e Encounter Details Date Type Department Care Team (Late st Contact Info) Description 12/23/2023 [facility]ology Clinic [address] 4th [place] [address] Cisco Caceres MD [address] [address] Social History Tobacco Use Types Packs/Day Years [...] on file 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 Gender Identity Not on file Sexual Orientation Not on file documented as of this encounter Plan of Treatment Upcoming Encounters Date Type Department Care Team (Late st Contact Info) Description 01/12/2025 10:00 AM PLASTERING SUPERVISOR Office Visit [facility] Gastroenterology Clinic [address] 4th [place] [phone] Paul Sanford MD [address] [place] [address] documented as of this encounter Visit Diagnoses Not on filedocumented in this encounter Care Teams Gasoline Finisher Relationship Specialty Start Date End Date Sushant Schreiber MD [facility] & [address] [address] PCP - General Family Medicine 12/02/21 No Ref-Primary, Physician 12/02/21 Cisco Caceres MD [address] [place] [address] Fellow Gastroenterology 12/09/21 Yung Rodriguez MD [address] [place], [place] [address] Cardiovascular Disease 12/25/21 Tatianna Horne [facility] [address] [place] [address] Pharmacist Pharmacist Fluid Pump Operator 02/06/22 Billie Tucker, RN Specialty Tool Builder Gastroenterology 12/10/22 Paul Sanford MD [address] [place] [address] Gastroenterology 12/25/22 Paul Sanford MD [address] [place] [address] Referring Physician Gastroenterology 01/14/23 Jt Waters MD [address] [place] [address] Dermatology 01/14/23 tJ Waters MD [address] [place] [address] Assigned Surgical Provider 01/17/23 01/28/24 Bhavik Segura PA-C [address] [place] [address] Physician Websphere Commerce Developer Gastroenterology 04/28/23 Paul Sanford MD [address] [place] [address] Assigned Gastroenterology Provider 07/18/23 Favian cMknight MD [address] [place] [address] Dermatology 12/09/23 Favian Mcknight MD [address] [place], [place] 393535 Assigned Surgical Provider 01/29/24 Tatianna Horne [facility] [address] [place], [place] 113215 Assigned MTM Pharmacist 07/08/24 Lyudmila Baltazar, RN Home Infusion Contract Clerk 08/29/24 documented as of this encounter
--- OUTSIDE RECORDS SUMMARY | 2024-12-22 05:26 | XMS_ITS | Encounter Summary ---
Author Organization [place] Address [address] [place] [address] Care Team Providers Care Clinical Resource Nurse Name Role Phone Sushant Schreiber MD Primary Care Provider [phone] No Ref-Primary, Physician Unavailable [phone] Cisco Caceres MD Unavailable [phone] Yung Rodriguez MD Unavailable Tatianna Horne [facility] Unavailable [phone] Billie Tucker RN Unavailable Unavailable Paul Sanford MD Unavailable Paul Sanford MD Unavailable [phone] Jt Waters MD Unavailable Bhavik Segura PA-C Unavailable [phone] Paul Sanford MD Unavailable [phone] Favian Mcknight MD Unavailable [phone] Favian Mcknight MD Unavailable [phone] Tatianna Horne [facility] Unavailable [phone] Lyudmila Baltazar RN Unavailable Unavailabl e Reason for Referral * Med Therapy Management (Routine: Next available opening) - Pending Review Specialty Diagnoses / Procedures Referred By Contjohana t Referred To Contact Pharmacist Diagnoses Crohn's disease of both small and large intestine with other complication (H) Paul Sanford MD [address] [place] [address] Phone: tel: fax: Referral ID Status Reason Start Date Expiration Date V isits Requested Visits Authorized [id number] Pending Review 06/13/2024 06/13/2025 1 1 Question Answer Type of MTM: Specialty Specialty: GI Med Course of Action: Other Reason for Referral: medicaiton maintenance Additional Information: already scheduled Comments [facility] Medication Therapy Management department will contact you [...] prescription and non-prescription medications (such as vitamins, nplv-vry-talitzl medications, and herbals) or a detailed medication list to your appointment. If you have a glucose meter or other home monitoring information, please also bring this to your appointment (i.e. blood glucose log, blood pressure log, pain log, etc.). 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 Gender Identity Not on file Sexual Orientation Not on file documented as of this encounter Plan of Treatment Upcoming Encounters Date Type Department Care Team (Late st Contact Info) Description 01/12/2025 10:00 AM AGRICULTURE WORKER Office Visit [facility] Gastroenterology Clinic [place] [address] [facility] 4th [place] [phone] Paul Sanford MD [address] [place] [address] Scheduled Referrals Name Type Priority Associated Diagnoses Orde r Schedule Med Therapy Management Referral Referral Routine: Next available opening Crohn's disease of both small and large intestine with other complication (H) Ordered: 06/13/2024 documented as of this encounter Visit Diagnoses Diagnosis Crohn's disease of both small and large intestine with other complication (H)- Primary documented in this encounter Care Teams Clinical Resource Nurse Relationship Specialty Start Date End Date Sushant Schreiber MD [facility] [address] [address] PCP - General Family Medicine 12/02/21 No Ref-Primary, Physician 12/02/21 Cisco Caceres MD [address] [place] [address] Fellow Gastroenterology 12/09/21 Yung Rodriguez MD [address] [facility] [address] [place] [address] Cardiovascular Disease 12/25/21 Tatianna Horne, [facility] [address] [place] [address] Pharmacist Pharmacist Rec Therapist 02/06/22 Billie Tucker, JANELL Specialty Director Global Market Research Gastroenterology 12/10/22 Paul Sanford MD [address] [place] [address] Gastroenterology 12/25/22 Paul Sanford MD 500 [place] [address] Referring Physician Gastroenterology 01/14/23 Jt Waters MD 500 [place] [address] Dermatology 01/14/23 Bhavik Segura PA-C [address] [place] [address] Physician Machine Maintenance Repairer Gastroenterology 04/28/23 Paul Sanford MD [address] [place] [address] Assigned Gastroenterology Provider 07/18/23 Favian Mcknight MD [address] [place] [address] Dermatology 12/09/23 Favian Mcknight MD [address] [place] [address] Assigned Surgical Provider 01/29/24 Tatianna Horne [facility] 9 [place] [address] Assigned MTM Pharmacist 07/08/24 Lyudmila Baltazar, RN Home Infusion Belt Loop Maker 08/29/24 documented as of this encounter
--- OUTSIDE RECORDS SUMMARY | 2024-12-22 05:26 | XMS_ITS | Encounter Summary ---
Author Organization [place] Address [address] [place] [address] Care Team Providers Care Assistant Softball Coach Name Role Phone Sushant Schreiber MD Primary Care Provider [phone] No Ref-Primary, Physician Unavailable [phone] Cisco Caceres MD Unavailable [phone] Sabiha Hogan APRN SOFTWARE DEVELOPMENT ANALYST Unavailable [phone] Yung Rodriguez MD Unavailable Tatianna Horne [facility] Unavailable Tatianna Horne [facility] Unavailable [phone] Tatianna Horne [facility] Unavailable [phone] Billie Tucker RN Unavailable Unavailable Chantale Grande PA-C Unavailable [phone] Paul Sanford MD Unavailable Paul Sanford MD Unavailable [phone] Jt Waters MD Unavailable Jt Waters MD Unavailable Bhavik Segura PA-C Unavailable [phone] Paul Sanford MD Unavailable Favian Mcknight MD Unavailable [phone] Favian Mcknight MD Unavailable [phone] Tatianna Horne [facility] Unavailable [phone] Lyudmila Baltazar RN Unavailable Unavailabl e Encounter [...] on file 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 No / Unsure 01/08/2022 8:25 AM ADMINISTRATIVE ASSISTANT FRONT DESK documented as of this encounter Plan of Treatment Upcoming Encounters Date Type Department Care Team (Late st Contact Info) Description 01/12/2025 10:00 AM ADMINISTRATIVE ASSISTANT FRONT DESK Office Visit [facility] Gastroenterology Clinic [address] [place] [address] Paul Sanford MD [address] [place] [address] documented as of this encounter Visit Diagnoses Not on filedocumented in this encounter Additional Health Concerns Infection Onset Date Last Indicated Resolved Time COVID-19 02/27/2022 02/27/2022 03/20/2022 11:3 9 PM CDT documented as of this encounter Care Teams Assistant Softball Coach Relationship Specialty Start Date End Date Sushant Schreiber MD [facility] [address] [place] [address] PCP - General Family Medicine 12/02/21 No Ref-Primary, Physician 12/02/21 Cisco Caceres MD [address] [place] [address] Fellow Gastroenterology 12/09/21 Sabiha Hogan APRN SOFTWARE DEVELOPMENT ANALYST [address] [place] [address] Assigned Heart and Vascular Provider 12/15/21 02/13/23 Yung Rodriguez MD [address] [place] [address] Cardiovascular Disease 12/25/21 [facility] [address] [place] [address] Pharmacist Pharmacist Manager Call 02/06/22 [facility] [address] [place] [address] Assigned MTM Pharmacist 04/12/22 [facility] [address] [place] [address] Assigned MTM Pharmacist 08/13/22 Billie Tucker, RN Specialty Cooper Helper Gastroenterology 12/10/22 Chantale Grande PAC[facility]pin[facility] [address] [place] [address] Physician Forepart Rasper Dermatology 12/25/22 01/13/23 Paul Sanford MD [address] [place] [address] Gastroenterology 12/25/22 Paul Sanford MD 500 [place] [address] Referring Physician Gastroenterology 01/14/23 Jt Waters MD 500 [place] [address] Dermatology 01/14/23 Jt Waters MD [address] [place] [address] Assigned Surgical Provider 01/17/23 01/28/24 Bhavik Segura PA-C [address] [place] [address] 867655 Physician Forepart Rasper Gastroenterology 04/28/23 Paul Sanford MD [address] [place] [address] Assigned Gastroenterology Provider 07/18/23 Favian Mcknight MD [address] [place] [address] Dermatology 12/09/23 Favian Mcknight MD [address] [place] [address] Assigned Surgical Provider 01/29/24 Tatianna Horne [facility] [address] [place] [address] Assigned MTM Pharmacist 07/08/24 Lyudmila Baltazar, RN Home Infusion General Warehouse Worker 08/29/24 documented as of this encounter
--- OUTSIDE RECORDS SUMMARY | 2024-12-22 05:26 | XMS_ITS | Encounter Summary ---
Author Organization [place] Address [address] [place] [address] Care Team Providers Care Mandrel Puller Name Role Phone Sushant Schreiber MD Primary Care Provider [phone] No Ref-Primary, Physician Unavailable [phone] Cisco Caceres MD Unavailable [phone] Sabiha Hogan APRN, CNP Unavailable [phone] Yung Rodriguez MD Unavailable Tatianna Horne [facility] Unavailable Tatianna Horne [facility] Unavailable Billie Tucker RN Unavailable Unavailable Paul Sanford MD Unavailable Paul Sanford MD Unavailable Jt Waters MD Unavailable Jt Waters MD Unavailable Bhavik Segura PA-C Unavailable [phone] Paul Sanford MD Unavailable [phone] Favian Mcknight MD Unavailable [phone] Favian Mcknight MD Unavailable [phone] Tatianna Horne [facility] Unavailable Lyudmila Baltazar RN Unavailable Unavailabl e Encounter Details Date Type Department Care Team (Late st Contact Info) Description 01/28/2023 MyC Medical Advice [facility] Gastroenterology Clinic [address] [address] Cisco Caceres MD [address] [place] [address] Social History Tobacco Use Types Packs/Day Years [...] on file 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 No / Unsure 01/14/2023 9:50 AM CANDY FORMING MACHINE OPERATOR documented as of this encounter Plan of Treatment Upcoming Encounters Date Type Department Care Team (Late st Contact Info) Description 01/12/2025 10:00 AM CANDY FORMING MACHINE OPERATOR Office Visit [facility] Gastroenterology Clinic [address] [phone] Paul Sanford MD [address] [place] [address] documented as of this encounter Visit Diagnoses Not on filedocumented in this encounter Care Teams Mandrel Puller Relationship Specialty Start Date End Date Sushant Schreiber MD [facility] - [address] [address] PCP - General Family Medicine 12/02/21 No Ref-Primary, Physician 12/02/21 Cisco Caceres MD [address] [place] [address] Fellow Gastroenterology 12/09/21 Sabiha Hogan APRN INVESTIGATIONS DIRECTOR [address] [place] [address] Assigned Heart and Vascular Provider 12/15/21 02/13/23 Yung Rodriguez MD [address] [place] [address] Cardiovascular Disease 12/25/21 [facility] [address] [place] [address] Pharmacist Pharmacist Hybrid Tester 02/06/22 [facility] [address] [place] [address] Assigned MTM Pharmacist 08/13/22 Billie Tucker, RN Specialty State Superintendent Of Schools Gastroenterology 12/10/22 Paul Sanford MD [address] [place] [address] Gastroenterology 12/25/22 Paul Sanford MD [address] [place] [address] Referring Physician Gastroenterology 01/14/23 Jt Waters MD [address] [place] [address] Dermatology 01/14/23 Jt Waters MD [address] [place] [address] Assigned Surgical Provider 01/17/23 01/28/24 Bhavik Segura PA-C [address] [place] [address] Physician Life Support Technician Gastroenterology 04/28/23 Paul Sanford MD [address] [place] [address] Assigned Gastroenterology Provider 07/18/23 Favian Mcknight MD [address] [place] [address] MD Dermatology 12/09/23 Favian Mcknight MD [address] [place] [address] Assigned Surgical Provider 01/29/24 Tatianna Horne [facility] [address] [place] [address] Assigned MTM Pharmacist 07/08/24 Lyudmila Baltazar, RN Home Infusion Natural Resources Manager 08/29/24 documented as of this encounter
--- OUTSIDE RECORDS SUMMARY | 2024-12-22 05:26 | XMS_ITS | Encounter Summary ---
Author Organization [place] Address [address] [place] [address] Care Team Providers Care Continuous Linter Drier Operator Name Role Phone Sushant Schreiber MD Primary Care Provider No Ref-Primary, Physician Unavailable [phone] Cisco Caceres MD Unavailable [phone] Sabiha Hogan APRN, CNP Unavailable [phone] Yung Rodriguez MD Unavailable Tatianna Horne [facility] Unavailable Tatianna Horne [facility] Unavailable [phone] Billie Tucker RN Unavailable Unavailable Chantale Grande PA-C Unavailable [phone] Paul Sanford MD Unavailable [phone] Paul Sanford MD Unavailable [phone] Jt Waters MD Unavailable Jt Waters MD Unavailable Bhavik Segura PA-C Unavailable [phone] Paul Sanford MD Unavailable Favian Mcknight MD Unavailable [phone] Favian Mcknight MD Unavailable [phone] Tatianna Horne [facility] Unavailable Lyudmila Baltazar RN Unavailable Unavailabl e Encounter Details Date Type Department Care Team (Late st Contact Info) Description 01/09/2023 MyC Medical Advice [facility] Gastroenterology Clinic [address] [address] Sosa Alexander Social History Tobacco [...] on file 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 Unable to assess 01/09/2023 1:20 PM LAUNDRY TECHNICIAN documented as of this encounter Plan of Treatment Upcoming Encounters Date Type Department Care Team (Late st Contact Info) Description 01/12/2025 10:00 AM LAUNDRY TECHNICIAN Office Visit [facility] Gastroenterology [address] [address] Paul Sanford MD [address] [place] [address] documented as of this encounter Visit Diagnoses Not on filedocumented in this encounter Care Teams Continuous Linter Drier Operator Relationship Specialty Start Date End Date Sushant Schreiber MD [facility] [address] [place] [address] PCP - General Family Medicine 12/02/21 No Ref-Primary, Physician 12/02/21 Cisco Caceres MD [address] [place] [address] Fellow Gastroenterology 12/09/21 Sabiha Hogan APRN MANUFACTURING TEAM MEMBER [address] [place], [place] 27[address] Assigned Heart and Vascular Provider 12/15/21 02/13/23 Yung Rodriguez MD [address] [place] [address] Cardiovascular Disease 12/25/21 [facility] [address] [place] [address] Pharmacist Pharmacist Auto Painter 02/06/22 [facility] [address] [place] [address] Assigned MTM Pharmacist 08/13/22 Billie Tucker, JANELL Specialty Retinal Surgeon Gastroenterology 12/10/22 Chantale Grande PA-C [address] [place] [address] Physician Quality Consultant Dermatology 12/25/22 01/13/23 Paul Sanford MD 500 [place] [address] Gastroenterology 12/25/22 Paul Sanford MD [address] [place] [address] Referring Physician Gastroenterology 01/14/23 Jt Waters MD 500 [place] [address] Dermatology 01/14/23 Jt Waters MD [address] [place] [address] Assigned Surgical Provider 01/17/23 01/28/24 Bhavik Segura PA-C [address] [place] [address] Physician Quality Consultant Gastroenterology 04/28/23 Paul Sanford MD [address] [place] [address] Assigned Gastroenterology Provider 07/18/23 Favian Mcknight MD [address] [place] [address] Dermatology 12/09/23 Favian Mcknight MD [address] [place] [address] Assigned Surgical Provider 01/29/24 Tatianna Horne, [facility] [address] [place] [address] Assigned MTM Pharmacist 07/08/24 Lyudmila Baltazar, JANELL Home Infusion Construction And Maintenance Inspector 08/29/24 documented as of this encounter
--- OUTSIDE RECORDS SUMMARY | 2024-12-22 05:26 | XMS_ITS | Encounter Summary ---
Author Organization [place] Address [address] [place] [address] Care Team Providers Care Direct Sales Consultant Name Role Phone Sushant Schreiber MD Primary Care Provider [phone] No Ref-Primary, Physician Unavailable [phone] Cisco Caceres MD Unavailable [phone] Yung Rodriguez MD Unavailable Tatianna Horne [facility] Unavailable Tatianna Horne [facility] Unavailable [phone] Billie Tucker RN Unavailable Unavailable Paul Sanford MD Unavailable Paul Sanford MD Unavailable [phone] Jt Waters MD Unavailable Jt Waters MD Unavailable Bhavik Segura PA-C Unavailable [phone] Paul Sanford MD Unavailable [phone] Favian Mcknight MD Unavailable [phone] Favian Mcknight MD Unavailable [phone] Tatianna Horne [facility] Unavailable [phone] Lyudmila Baltazar RN Unavailable Unavailabl e Encounter Details Date Type Department Care Team (Late st Contact Info) Description 05/22/2023 [facility] Gastro[facility]ology Clinic [address] [phone] Billie Tucker RN Social History Tobacco Use [...] file 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 Gender Identity Not on file Sexual Orientation Not on file documented as of this encounter Plan of Treatment Upcoming Encounters Date Type Department Care Team (Late st Contact Info) Description 01/12/2025 10:00 AM STORE WORKER Office Visit [facility] Gastroenterology Clinic [address] [phone] Paul Sanford MD [address] [place] [address] 5848[address] documented as of this encounter Visit Diagnoses Not on filedocumented in this encounter Care Teams Direct Sales Consultant Relationship Specialty Start Date End Date Sushant Schreiber MD [facility] & [address] [address] PCP - General Family Medicine 12/02/21 No Ref-Primary, Physician 12/02/21 Cisco Caceres MD [address] [place] [address] [address] [place] [address] Fellow Gastroenterology 12/09/21 Yung Rodriguez MD [address] [place] [address] Cardiovascular Disease 12/25/21 Tatianna Horne, [facility] [address] [place] [address] Pharmacist Pharmacist Rn Baby 02/06/22 Tatianna Horne, [facility] [address] [place] [address] Assigned MTM Pharmacist 08/13/22 Billie Tucker, RN Specialty Cold Mill Inspector Gastroenterology 12/10/22 Paul Sanford MD [address] [place] [address] MD Gastroenterology 12/25/22 Paul Sanford MD [address] [place] [address] Referring Physician Gastroenterology 01/14/23 Jt Waters MD 500 [place] [address] MD Dermatology 01/14/23 Jt Waters MD [address] [place] [address] Assigned Surgical Provider 01/17/23 01/28/24 Bhavik Segura PA-C [address] [place] [address] Physician Topstitcher Zigzag Gastroenterology 04/28/23 Paul Sanford MD [address] [place] [address] Assigned Gastroenterology Provider 07/18/23 Favian Mcknight MD [address] [place] [address] Dermatology 12/09/23 Favian Mcknight MD 9 [place] [address] Assigned Surgical Provider 01/29/24 Tatianna Horne [facility] 9 [place] [address] Assigned MTM Pharmacist 07/08/24 Lyudmila Baltazar, RN Home Infusion Joiners Supervisor 08/29/24 documented as of this encounter
--- OUTSIDE RECORDS SUMMARY | 2024-12-22 05:26 | XMS_ITS | Encounter Summary ---
Author Organization [place] Address [address] [place] [address] Care Team Providers Care Manager Cancer Name Role Phone Sushant Schreiber MD Primary Care Provider [phone] No Ref-Primary, Physician Unavailable [phone] Cisco Caceres MD Unavailable [phone] Sabiha Hogan APRN MATHEMATICAL SCIENTIST Unavailable [phone] Yung Rodriguez MD Unavailable Tatianna Horne [facility] Unavailable [phone] Tatianna Horne [facility] Unavailable [phone] Tatianna Horne [facility] Unavailable [phone] Billie Tucker RN Unavailable Unavailable [place] PA-C Unavailable [phone] Paul Sanford MD Unavailable Paul Sanford MD Unavailable Jt Waters MD Unavailable Jt Waters MD Unavailable Bhavik Segura PA-C Unavailable [phone] Paul Sanford MD Unavailable Favian Mcknight MD Unavailable [phone] Favian Mcknight MD Unavailable [phone] Tatianna Horne [facility] Unavailable Lyudmila Baltazar RN Unavailable Unavailabl e Encounter Details Date Type Department Care Team (Late st Contact Info) Description 12/03/2021 External Order Results [facility] [address] [place] [address] Outside, Provider Social History Tobacco Use Types Packs/Day Years Used Date Smoking Tobacco: Every Day Cigarettes Alcohol Use Standard Drinks/Week Comments Yes 0 (1 standard drink = 0.6 oz pur e alcohol) occ Sex and Gender Information Value Date Recorded Sex Assigned at Not on file Legal 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 No / Unsure 12/02/2021 4:20 PM NEON SIGN MAKER documented as of this encounter Plan of Treatment Upcoming Encounters Date Type Department Care Team (Late st Contact Info) Description 01/12/2025 10:00 AM NEON SIGN MAKER Office Visit [facility] [address] [place] [address] Paul Sanford MD [address] [place] [address] documented as of this encounter Visit Diagnoses Not on filedocumented in this encounter Additional Health Concerns Infection Onset Date Last Indicated Resolved Time COVID-19 02/27/2022 02/27/2022 03/20/2022 11:3 9 PM CDT documented as of this encounter Care Teams Manager Cancer Relationship Specialty Start Date End Date Sushant Schreiber MD [facility] [address] [address] PCP - General Family Medicine 12/02/21 No Ref-Primary, Physician 12/02/21 Cisco Caceres MD [address] [facility] [address] [place] [address] Fellow Gastroenterology 12/09/21 Sabiha Hogan APRN MATHEMATICAL SCIENTIST [address] [place] [address] Assigned Heart and Vascular Provider 12/15/21 02/13/23 Yung Rodriguez MD [address] [place] [address] Cardiovascular Disease 12/25/21 [facility] [address] [place] [address] Pharmacist Pharmacist Diesel Scoop Operator 02/06/22 [facility] [address] [place] [address] Assigned MTM Pharmacist 04/12/22 [facility] [address] [place] [address] Assigned MTM Pharmacist 08/13/22 Billie Tucker, JANELL Specialty Carpenter'S Helper Gastroenterology 12/10/22 Chantale Grande [facility] [address] [place] [address] Physician Beauty School Instructor Dermatology 12/25/22 01/13/23 Paul Sanford MD [address] [place] [address] Gastroenterology 12/25/22 Paul Sanford MD 500 [place] [address] Referring Physician Gastroenterology 01/14/23 Jt Waters MD 500 [place] [address] Dermatology 01/14/23 Jt Waters MD 500 [place] [address] Assigned Surgical Provider 01/17/23 01/28/24 Bhavik Segura PA-C [address] [place] [address] 460525 Physician Beauty School Instructor Gastroenterology 04/28/23 Paul Sanford MD [address] [place] [address] Assigned Gastroenterology Provider 07/18/23 Favian Mcknight MD [address] [place] [address] Dermatology 12/09/23 Favian Mcknight MD [address] [place] [address] Assigned Surgical Provider 01/29/24 Tatianna Horne [facility] [address] [place] [address] Assigned MTM Pharmacist 07/08/24 Lyudmila Baltazar, RN Home Infusion Feather Duster Winder 08/29/24 documented as of this encounter
--- OUTSIDE RECORDS SUMMARY | 2024-12-22 05:26 | XMS_ITS | Encounter Summary ---
Author Organization [place] Address [address] [place] [address] Care Team Providers Care Cake Maker Name Role Phone Sushant Schreiber MD Primary Care Provider No Ref-Primary, Physician Unavailable [phone] Cisco Caceres MD Unavailable [phone] Sabiha Hogan APRN, CNP Unavailable [phone] Yung Rodriguez MD Unavailable Tatianna Horne [facility] Unavailable Tatianna Horne [facility] Unavailable [phone] Billie Tucker RN Unavailable Unavailable [place] PA-C Unavailable [phone] Paul Sanford MD Unavailable [phone] Paul Sanford MD Unavailable [phone] Jt Waters MD Unavailable Jt Waters MD Unavailable Bhavik Segura PA-C Unavailable [phone] Paul Sanford MD Unavailable Favian Mcknight MD Unavailable [phone] Favian Mcknight MD Unavailable [phone] Tatianna Horne [facility] Unavailable Lyudmila Baltazar RN Unavailable Unavailabl e Encounter Details Date Type Department Care Team (Late st Contact Info) Description 12/25/2022 [facility] Medical Advice Adult Call [facility] [address] [place] [address] Isabelle Morgan Social History Tobacco Use [...] on file Legal 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 APPLICATION PROJECT LEADER Gender Identity Not on file Sexual Orientation Not on file COVID-19 Exposure Response Date Recorded In the last 10 days, have yo u been in contact with someone who was confirmed or suspected to have Coronavirus/COVID-19? No / Unsure 12/25/2022 7:56 AM APPLICATION PROJECT LEADER documented as of this encounter Plan of Treatment Upcoming Encounters Date Type Department Care Team (Late st Contact Info) Description 01/12/2025 10:00 AM APPLICATION PROJECT LEADER Office Visit [facility] [address] [place] [address] Paul Sanford MD [address] [place] [address] 900795 documented as of this encounter Visit Diagnoses Not on filedocumented in this encounter Care Teams Cake Maker Relationship Specialty Start Date End Date Sushant Schreiber MD [facility] [address] [place] [address] PCP - General Family Medicine 12/02/21 No Ref-Primary, Physician 12/02/21 Cisco Caceres MD [address] [place] [address] 284 [place] [address] Fellow Gastroenterology 12/09/21 Sabiha Hogan APRN CURRICULUM AND ASSESSMENT COORDINATOR [address] [place], [place] 644765 Assigned Heart and Vascular Provider 12/15/21 02/13/23 Yung Rodriguez MD [address] [place], [place] 341055 Cardiovascular Disease 12/25/21 [facility] [address] [place] [address] 650485 Pharmacist Pharmacist Manager Outpatient 02/06/22 [facility] [address] [place] [address] 287835 Assigned MTM Pharmacist 08/13/22 Billie Tukcer, RN Specialty Supply Chain Project Manager Gastroenterology 12/10/22 Chantale Grande, PACrispinC [address] [place] [address] Physician Program Developer Dermatology 12/25/22 01/13/23 Paul Sanford MD 500 [place] [address] Gastroenterology 12/25/22 Paul Sanford MD [address] [place] [address] Referring Physician Gastroenterology 01/14/23 Jt Waters MD 500 [place] [address] Dermatology 01/14/23 Jt Waters MD [address] [place] [address] Assigned Surgical Provider 01/17/23 01/28/24 Bhavik Segura [facility] [address] [place] [address] Physician Program Developer Gastroenterology 04/28/23 Paul Sanford MD [address] [place] [address] Assigned Gastroenterology Provider 07/18/23 Favian Mcknight MD [address] [place] [address] Dermatology 12/09/23 Favian Mcknight MD [address] [place] [address] Assigned Surgical Provider 01/29/24 Tatianna Horne [facility] [address] [place] [address] Assigned MTM Pharmacist 07/08/24 Lyudmila Baltazar, RN Home Infusion Baby Stroller Rental Clerk 08/29/24 documented as of this encounter
--- OUTSIDE RECORDS SUMMARY | 2024-12-22 05:26 | XMS_ITS | Encounter Summary ---
Author Organization [place] Address [address] [place] [address]482 Care Team Providers Care Water Treatment Plant Engineer Name Role Phone Sushant Schreiber MD Primary Care Provider No Ref-Primary, Physician Unavailable [phone] Cisco Caceres MD Unavailable [phone] Sabiha Hogan APRN, CNP Unavailable [phone] Yung Rodriguez MD Unavailable Tatianna Horne [facility] Unavailable Tatianna Horne [facility] Unavailable Billie Tucker RN Unavailable Unavailable Paul Sanford MD Unavailable Paul Sanford MD Unavailable [phone] Jt Waters MD Unavailable Jt Waters MD Unavailable Bhavik Segura PA-C Unavailable [phone] Paul Sanford MD Unavailable [phone] Favian Mcknight MD Unavailable [phone] Favian Mcknight MD Unavailable [phone] Tatianna Horne [facility] Unavailable [phone] Lyudmila Baltazar RN Unavailable Unavailabl e Encounter Details Date Type Department Care Team (Late st Contact Info) Description 01/20/2023 [facility] Medical Advice [facility] G[facility]ology Clinic [address] [phone] Billie Tucker RN Social History Tobacco Use [...] on file Legal 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 DELIVERY AIDE Gender Identity Not on file Sexual Orientation Not on file COVID-19 Exposure Response Date Recorded In the last 10 days, have yo u been in contact with someone who was confirmed or suspected to have Coronavirus/COVID-19? No / Unsure 01/14/2023 9:50 AM DELIVERY AIDE documented as of this encounter Plan of Treatment Upcoming Encounters Date Type Department Care Team (Late Contact Info) Description 01/12/2025 10:00 AM DELIVERY AIDE Office Visit [facility] [address] [phone] Paul Sanford MD [address] [place] [address] documented as of this encounter Visit Diagnoses Not on filedocumented in this encounter Care Teams Water Treatment Plant Engineer Relationship Specialty Start Date End Date Sushant Schreiber MD [facility] [address] [place] [address] PCP - General Family Medicine 12/02/21 No Ref-Primary, Physician 12/02/21 Cisco Caceres MD [address] [place] [address] [address] [place] [address] Fellow Gastroenterology 12/09/21 Sabiha oHgan APRN GLOVE STITCHER [address] [place] 7[address]885 Assigned Heart and Vascular Provider 12/15/21 02/13/23 Yung Rodriguez MD [address] [place] [address] Cardiovascular Disease 12/25/21 [facility] [address] [place] [address] Pharmacist Pharmacist Airport Skilled Maintenance Supervisor 02/06/22 [facility] [address] [place], [place] 653395 Assigned MTM Pharmacist 08/13/22 Billie Tucker, RN Specialty Instrument Assembly Supervisor Gastroenterology 12/10/22 Paul Sanford MD 500 [place] [address] Gastroenterology 12/25/22 Paul Sanford MD 500 [place] [address] Referring Physician Gastroenterology 01/14/23 Jt Waters MD 500 [place] [address] Dermatology 01/14/23 Jt Waters MD [address] [place] [address] Assigned Surgical Provider 01/17/23 01/28/24 Bhavik Segura PA-C [address] [place] [address] 440565 Physician Motor Electrician Gastroenterology 04/28/23 Paul Sanford MD [address] [place] [address] Assigned Gastroenterology Provider 07/18/23 Favian Mcknight MD [address] [place] [address] 643265 MD Rodríguez 12/09/23 Favian Mcknight MD [address] [place] [address] Assigned Surgical Provider 01/29/24 Tatianna Horne [facility] [address] [place] [address] 628065 Assigned MTM Pharmacist 07/08/24 Lyudmila Baltazar, RN Home Infusion Blood Bank Specialist 08/29/24 documented as of this encounter
--- OUTSIDE RECORDS SUMMARY | 2024-12-22 05:26 | XMS_ITS | Encounter Summary ---
Author Organization [facility] Address [address] [place] [address] Care Team Providers Care Gristmill Operator Name Role Phone Sushant Schreiber MD Primary Care Provider [phone] No Ref-Primary, Physician Unavailable [phone] Cisco Caceres MD Unavailable [phone] Yung Rodriguez MD Unavailable Tatianna Horne [facility] Unavailable [phone] Tatianna Horne [facility] Unavailable [phone] Billie Tucker RN Unavailable Unavailable Paul Sanford MD Unavailable Paul Sanford MD Unavailable [phone] Jt Waters MD Unavailable Jt Waters MD Unavailable Bhavik Segura PA-C Unavailable [phone] Paul Sanford MD Unavailable [phone] Favian Mcknight MD Unavailable [phone] Favian Mcknight MD Unavailable [phone] Tatianna Horne [facility] Unavailable [phone] Lyudmila Baltazar RN Unavailable Unavailabl e Encounter Details Date Type Department Care Team (Late st Contact Info) Description 07/07/2023 [facility] [address] [phone] Beatriz Mak Social History Tobacco Use Types [...] on file Legal 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 PROGRESSIVE DIE MAKER Gender Identity Not on file Sexual [...] st Contact Info) Description 01/12/2025 10:00 AM PROGRESSIVE DIE MAKER Office Visit [facility] [address] [phone] Paul Sanford MD [address] [place] [address] documented as of this encounter Visit Diagnoses Not on filedocumented in this encounter Care Teams Gristmill Operator Relationship Specialty Start Date End Date Sushant Schreiber MD [facility] [address] [place] [address] PCP - General Family Medicine 12/02/21 No Ref-Primary, Physician 12/02/21 Cisco Caceres MD [address] [place] [address] 284 [place] [address] Fellow Gastroenterology 12/09/21 Yung Rodriguez MD [address] [place] [address] Cardiovascular Disease 12/25/21 Tatianna Horne, [facility] [address] [place] [address] Pharmacist Pharmacist Upper Cutter Machine 02/06/22 [facility] [address] [place] [address] Assigned MTM Pharmacist 08/13/22 Billie Tucker, RN Specialty Front Desk Agent Gastroenterology 12/10/22 Paul Sanford MD [address] [place] [address] 334015 Gastroenterology 12/25/22 Paul Sanford MD [address] [place] [address] 612235 Referring Physician Gastroenterology 01/14/23 Jt Waters MD [address] [place], [place] 654615 Dermatology 01/14/23 Jt Waters MD [address] [place] [address] Assigned Surgical Provider 01/17/23 01/28/24 Bhavik Segura PA-C [address] [place] [address] Physician Soil Chemist Gastroenterology 04/28/23 Paul Sanford MD [address] [place] [address] Assigned Gastroenterology Provider 07/18/23 Favian Mcknight MD [address] [place] [address] MD Dermatology 12/09/23 Favian Mcknight MD [address] [place] [address] Assigned Surgical Provider 01/29/24 Tatianna Horne [facility] [address] [place] [address] Assigned MTM Pharmacist 07/08/24 Lyudmila Baltazar, RN Home Infusion Belt Changer 08/29/24 documented as of this encounter
--- OUTSIDE RECORDS SUMMARY | 2024-12-22 05:26 | XMS_ITS | Encounter Summary ---
Author Organization [place] Address [address] [place] [address] Care Team Providers Care Natural Resources Instructor Name Role Phone Sushant Schreiber MD Primary Care Provider No Ref-Primary, Physician Unavailable [phone] Cisco Caceres MD Unavailable [phone] Yung Rodriguez MD Unavailable Tatianna Horne [facility] Unavailable [phone] Billie Tucker RN Unavailable Unavailable Paul Sanford MD Unavailable [phone] Paul Sanford MD Unavailable [phone] Jt Waters MD Unavailable Jt Waters MD Unavailable Bhavik Segura PA-C Unavailable [phone] Paul Sanford MD Unavailable [phone] Favian Mcknight MD Unavailable [phone] Favian Mcknight MD Unavailable [phone] Tatianna Horne [facility] Unavailable [phone] Lyudmila Baltazar RN Unavailable Unavailabl e Encounter Details Date Type Department Care Team (Late st Contact Info) Description 12/23/2023 [facility] [address] [phone] Elsa Ayala, RN Social History [...] on file Legal 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 MOLDING SUPERVISOR Gender Identity Not on file Sexual Orientation Not on file documented as of this encounter Plan of Treatment Upcoming Encounters Date Type Department Care Team (Late st Contact Info) Description 01/12/2025 10:00 AM MOLDING SUPERVISOR Office Visit [facility] G[facility]ology [facility] [place] [address] [phone] Paul Sanford MD [address] [place] [address] 595035 documented as of this encounter Visit Diagnoses Not on filedocumented in this encounter Care Teams Natural Resources Instructor Relationship Specialty Start Date End Date Sushant Schreiber MD [facility] [address] [place] [address] PCP - General Family Medicine 12/02/21 No Ref-Primary, Physician 12/02/21 Cisco Caceres MD [address] [place] [address] 284 [place], [place] 248155 Fellow Gastroenterology 12/09/21 Yung Rodriguez MD [address] [facility] [address] [place] [address] Cardiovascular Disease 12/25/21 Tatianna Horne, [facility] [address] [place] [address] Pharmacist Pharmacist Land Planner 02/06/22 Billie Tucker, RN Specialty Salesperson [employer] Gastroenterology 12/10/22 Paul Sanford MD [address] [place] [address] Gastroenterology 12/25/22 Paul Sanford MD [address] [place] [address] Referring Physician Gastroenterology 01/14/23 Jt Waters MD [address] [place] [address] Dermatology 01/14/23 Jt Waters MD [address] [place] [address] Assigned Surgical Provider 01/17/23 01/28/24 Bhavik Segura PA-C [address] [place] [address] Physician Solar Installer Pv Gastroenterology 04/28/23 Paul Sanford MD [address] [place] [address] Assigned Gastroenterology Provider 07/18/23 Favian Mcknight MD [address] [place] [address] Dermatology 12/09/23 Favian Mcknight MD [address] [place] [address] Assigned Surgical Provider 01/29/24 Tatianna Horne [facility] [address] [place] [address] Assigned MTM Pharmacist 07/08/24 Lyudmila Baltazar, RN Home Infusion Investigator Operator 08/29/24 documented as of this encounter
--- OUTSIDE RECORDS SUMMARY | 2024-12-22 05:26 | XMS_ITS ---
Author Organization [facility] Address [address] [place] [address] Care Team Providers Care International Marketing Specialist Name Role Phone Sushant Schreiber MD Primary Care Provider [phone] No Ref-Primary, Physician Unavailable [phone] Cisco Caceres MD Unavailable [phone] Yung Rodriguez MD Unavailable Tatianna Horne [facility] Unavailable Billie Tucker RN Unavailable Unavailable Paul Sanford MD Unavailable [phone] Paul Sanford MD Unavailable [phone] Jt Waters MD Unavailable Bhavik Segura PA-C Unavailable [phone] Paul Sanford MD Unavailable [phone] Favian Mcknight MD Unavailable [phone] Favian Mcknight MD Unavailable [phone] Tatianna Horne [facility] Unavailable [phone] Lyudmila Baltazar RN Unavailable Unavailabl e Biologic Status:Enrolled (Active) Start date:07/21/2024 Enrollment date:07/22/2024 Linked medications:Sodium Chloride,inFLIXimab-dyyb (Active) Linked problems:Crohn's disease of both small and large intestine (H) (Active) Related program episode:Home Infusion (Active) Continued Care and Services Coordination
--- OUTSIDE RECORDS SUMMARY | 2024-12-22 05:26 | XMS_ITS | Encounter Summary ---
Author Organization [facility] Address [address] [place] [address] Care Team Providers Care Cardiopulmonary Technician Name Role Phone Sushant Schreiber MD Primary Care Provider [phone] No Ref-Primary, Physician Unavailable [phone] Cisco Caceres MD Unavailable [phone] Yung Rodriguez MD Unavailable Tatianna Horne [facility] Unavailable [phone] Tatianna Horne [facility] Unavailable [phone] Billie Tucker RN Unavailable Unavailable Paul Sanford MD Unavailable Paul Sanford MD Unavailable [phone] Jt Waters MD Unavailable Jt Waters MD Unavailable Bhavik Segura PA-C Unavailable [phone] Paul Sanford MD Unavailable [phone] Favian Mcknight MD Unavailable [phone] Favian Mcknight MD Unavailable [phone] Tatianna Horne [facility] Unavailable [phone] Lyudmila Baltazar RN Unavailable Unavailabl e Encounter Details Date Type Department Care Team (Late st Contact Info) Description 03/23/2023 [facility] [address] [place] [phone] Diony Drummond Social History Tobacco Use Types [...] on file Legal 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 BUSINESS OPERATIONS COORDINATOR Gender Identity Not on file Sexual Orientation Not on file documented as of this encounter Plan of Treatment Upcoming Encounters Date Type Department Care Team (Late st Contact Info) Description 01/12/2025 10:00 AM BUSINESS OPERATIONS COORDINATOR Office Visit [facility] Gastroenterology Clinic [address] [phone] Paul Sanford MD [address] [place] [address] 500125 documented as of this encounter Visit Diagnoses Not on filedocumented in this encounter Care Teams Cardiopulmonary Technician Relationship Specialty Start Date End Date Sushant Schreiber MD [facility] [address] [place] [address] PCP - General Family Medicine 12/02/21 No Ref-Primary, Physician 12/02/21 Cisco Caceres MD [address] [place] [address] 284 [place], [place] 9[address] Fellow Gastroenterology 12/09/21 Yung Rodriguez MD [address] [place] [address] Cardiovascular Disease 12/25/21 [facility] [address] [place] [address] Pharmacist Pharmacist Bending Shed Worker 02/06/22 Tatianna Horne [facility] [address] [place] [address] Assigned MTM Pharmacist 08/13/22 Billie Tucker, RN Specialty Car Rider Gastroenterology 12/10/22 Paul Sanford MD 500 [place] [address] Gastroenterology 12/25/22 Paul Sanford MD 500 [place] [address] Referring Physician Gastroenterology 01/14/23 Jt Waters MD [address] [place] [address] MD Dermatology 01/14/23 Jt Waters MD [address] [place] [address] Assigned Surgical Provider 01/17/23 01/28/24 Bhavik Segura PA-C [address] [place] [address] Physician Nail Puller Gastroenterology 04/28/23 Paul Sanford MD 500 [place] [address] Assigned Gastroenterology Provider 07/18/23 Favian Mcknight MD [address] [place] [address] Dermatology 12/09/23 Favian Mcknight MD 9 [place] [address] Assigned Surgical Provider 01/29/24 Tatianna Horne [facility] 9 [place] [address] Assigned MTM Pharmacist 07/08/24 Lyudmila Baltazar, RN Home Infusion Roving Weight Gauger 08/29/24 documented as of this encounter
--- OUTSIDE RECORDS SUMMARY | 2024-12-22 05:26 | XMS_ITS | Encounter Summary ---
Author Organization [facility] Address [address] [place] [address] Care Team Providers Care Credit Products Officer Name Role Phone Sushant Schreiber MD Primary Care Provider [phone] No Ref-Primary, Physician Unavailable [phone] Cisco Caceres MD Unavailable [phone] Yung Rodriguez MD Unavailable [facility] Unavailable [facility] Unavailable [phone] Billie Tucker RN Unavailable Unavailable Paul Sanford MD Unavailable [phone] Paul Sanford MD Unavailable [phone] Jt Waters MD Unavailable Jt Waters MD Unavailable Bhavik Segura PA-C Unavailable [phone] Paul Sanford MD Unavailable [phone] Favian Mcknight MD Unavailable [phone] Favian Mcknight MD Unavailable [phone] [facility] Unavailable [phone] Lyudmila Baltazar RN Unavailable Unavailabl e Encounter Details Date Type Department Care Team (Late st Contact Info) Description 03/16/2023 [facility] Medical Advice [address] 5th [place] [phone] Chantell Madera RN Social History Tobacco Use [...] file Legal 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 MANAGER OF SOFTWARE Gender Identity Not on file Sexual Orientation Not on file documented as of this encounter Plan of Treatment Upcoming Encounters Date Type Department Care Team (Late st Contact Info) Description 01/12/2025 10:00 AM MANAGER OF SOFTWARE Office Visit [facility] G[facility]ology Clinic [address]th [place] [phone] Paul Sanford MD [address] [place] [address] 069385 documented as of this encounter Visit Diagnoses Not on filedocumented in this encounter Care Teams Credit Products Officer Relationship Specialty Start Date End Date Sushant Schreiber MD [facility] [address] [place] [address] PCP - General Family Medicine 12/02/21 No Ref-Primary, Physician 12/02/21 Cisco Caceres MD [address] [place] [address] 284 [place], [place] 229665 Fellow Gastroenterology 12/09/21 Yung Rodriguez MD [address] [place] [address] Cardiovascular Disease 12/25/21 [facility] [address] [place] [address] Pharmacist Pharmacist Farm Operator 02/06/22 [facility] [address] [place] [address] Assigned MTM Pharmacist 08/13/22 Billie Tucker, RN Specialty Supervisor Asphalt Paving Gastroenterology 12/10/22 Paul Sanford MD 500 [place] [address] Gastroenterology 12/25/22 Paul Sanford MD 500 [place] [address] Referring Physician Gastroenterology 01/14/23 Jt Waters MD 500 [place] [address] MD Dermatology 01/14/23 Jt Waters MD 500 [place] [address] Assigned Surgical Provider 01/17/23 01/28/24 Bhavik Segura PA-C [address] [place] [address] Physician Battery Assembler Plastic Gastroenterology 04/28/23 Paul Sanford MD 500 [place] [address] Assigned Gastroenterology Provider 07/18/23 Favian Mcknight MD 9 [place] [address] Dermatology 12/09/23 Favian Mcknight MD 9 [place] [address] Assigned Surgical Provider 01/29/24 [facility] 9 [place] [address] Assigned MTM Pharmacist 07/08/24 Lyudmila Baltazar, RN Home Infusion Barrel Drainer 08/29/24 documented as of this encounter
--- OUTSIDE RECORDS SUMMARY | 2024-12-22 05:26 | XMS_ITS | Encounter Summary ---
Author Organization [place] Address [address] [place] [address] Care Team Providers Care Sash Finisher Name Role Phone Sushant Schreiber MD Primary Care Provider [phone] No Ref-Primary, Physician Unavailable [phone] Cisco Caceres MD Unavailable [phone] Yung Rodriguez MD Unavailable aTtianna Horne [facility] Unavailable Tatianna Horne [facility] Unavailable [phone] Billie Tucker RN Unavailable Unavailable Paul Sanford MD Unavailable Paul Sanford MD Unavailable [phone] Jt Waters MD Unavailable Jt Waters MD Unavailable Bhavik Segura PA-C Unavailable [phone] Paul Sanford MD Unavailable [phone] Favian Mcknight MD Unavailable [phone] Favian Mcknight MD Unavailable [phone] Tat[facility]na Horne [facility] Unavailable [phone] Lyudmila Baltazar RN Unavailable Unavailabl e Encounter Details Date Type Department Care Team (Late st Contact Info) Description 07/07/2023 [facility] Gastro[facility] Clinic [address] [phone] Beatriz Mak Social History Tobacco Use Types [...] on file Legal 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 Gender Identity Not on file Sexual [...] st Contact Info) Description 01/12/2025 10:00 AM APPLIANCE LINE ASSEMBLER Office Visit [facility] Gastroenterology Clinic [address] [phone] Paul Sanford MD [address] [place] [address] documented as of this encounter Visit Diagnoses Not on filedocumented in this encounter Care Teams Sash Finisher Relationship Specialty Start Date End Date Sushant Schreiber MD [facility] [address] [place] [address] PCP - General Family Medicine 12/02/21 No Ref-Primary, Physician 12/02/21 Cisco Caceres MD [address] [place] [address] 284 [place] [address] Fellow Gastroenterology 12/09/21 Yung Rodriguez MD [address] [place] [address] Cardiovascular Disease 12/25/21 Tatianna Horne, [facility] [address] [place] [address] Pharmacist Pharmacist Electric Gas Appliances Demonstrator 02/06/22 [facility] [address] [place] [address] Assigned MTM Pharmacist 08/13/22 Billie Tucker, RN Specialty Enrichment Teacher Gastroenterology 12/10/22 Paul Sanford MD [address] [place] [address] 618045 Gastroenterology 12/25/22 Paul Sanford MD [address] [place] [address] 087885 Referring Physician Gastroenterology 01/14/23 Jt Waters MD 500 [place], [place] 008185 Dermatology 01/14/23 Jt Waters MD 500 [place] [address] Assigned Surgical Provider 01/17/23 01/28/24 Bhavik Segura PA-C 9 [place] [address] Physician Nursery School Teacher Gastroenterology 04/28/23 Paul Sanford MD 500 [place] [address] Assigned Gastroenterology Provider 07/18/23 Favian Mcknight MD [address] [place] [address] MD Dermatology 12/09/23 Favian Mcknight MD [address] [place] [address] Assigned Surgical Provider 01/29/24 Tatianna Horne [facility] [address] [place] [address] Assigned MTM Pharmacist 07/08/24 Lyudmila Baltazar, RN Home Infusion Colorist Formulator 08/29/24 documented as of this encounter
--- OUTSIDE RECORDS SUMMARY | 2024-12-22 05:26 | XMS_ITS ---
Author Organization [facility] Address [address] [place] [address] Care Team Providers Care Superintendent Nonselling Name Role Phone Sushant Schreiber MD Primary Care Provider [phone] No Ref-Primary, Physician Unavailable [phone] Cisco Caceres MD Unavailable [phone] Yung Rodriguez MD Unavailable Tatianna Horne [facility] Unavailable [phone] Billie Tucker RN Unavailable Unavailable Paul Sanford MD Unavailable [phone] Paul Sanford MD Unavailable [phone] Jt Waters MD Unavailable Bhavik Segura PA-C Unavailable [phone] Paul Sanford MD Unavailable [phone] Favian Mcknight MD Unavailable [phone] Favian Mcknight MD Unavailable [phone] Tatianna Horne [facility] Unavailable [phone] Lyudmila Baltazar RN Unavailable Unavailabl e Home Infusion Status:Enrolled (Active) Start date:07/21/2024 Enrollment date:07/22/2024 Related service episodes:Antiemetic (Active), Biologic (Active), Hydration Therapy (Active), Pain Management (Active) Case Team Name Relationship Phone Lyudmila Baltazar RN Home Infusion Honeycomb Decapper( Responsible Staff) Continued Care and Services Coordination This section includes services coordinated for Home Infusion. [facility] Nursing Agency Name Services Phone [facility] long[facility]
--- OUTSIDE RECORDS SUMMARY | 2024-12-22 05:26 | XMS_ITS | Encounter Summary ---
Author Organization [facility] Address [address] [place] [address] Care Team Providers Care Business Process Representative Name Role Phone Sushant Schreiber MD Primary Care Provider No Ref-Primary, Physician Unavailable [phone] Cisco Caceres MD Unavailable [phone] Sabiha Hogan APRN, CNP Unavailable [phone] Yung Rodriguez MD Unavailable Tatianna Horne [facility] Unavailable Tatianna Horne [facility] Unavailable [phone] Billie Tucker RN Unavailable Unavailable Chantale Grande PA-C Unavailable [phone] Paul Sanford MD Unavailable [phone] Paul Sanford MD Unavailable [phone] Jt Waters MD Unavailable Jt Waters MD Unavailable Bhavik Segura PA-C Unavailable [phone] Paul Sanford MD Unavailable Favian Mcknight MD Unavailable [phone] Favian Mcknight MD Unavailable [phone] Tatianna Horne [facility] Unavailable Lyudmila Baltazar RN Unavailable Unavailabl e Encounter Details Date Type Department Care Team (Late st Contact Info) Description 01/09/2023 [facility] Medical Advice [facility] Gastroenterology Clinic [address] [phone] Sosa Alexander Social History Tobacco [...] on file Legal 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 Unable to assess 01/09/2023 1:20 PM CANARY RAISER documented as of this encounter Plan of Treatment Upcoming Encounters Date Type Department Care Team (Late st Contact Info) Description 01/12/2025 10:00 AM CANARY RAISER Office Visit [facility] Gastroenterology [address] [address] Paul Sanford MD [address] [place] [address] documented as of this encounter Visit Diagnoses Not on filedocumented in this encounter Care Teams Business Process Representative Relationship Specialty Start Date End Date Sushant Schreiber MD [facility] [address] [place] [address] PCP - General Family Medicine 12/02/21 No Ref-Primary, Physician 12/02/21 Cisco Caceres MD [address] [place] [address] Fellow Gastroenterology 12/09/21 Sabiha Hogan APRN RELATIONSHIP MGR [address] [place], [place] [id number] Assigned Heart and Vascular Provider 12/15/21 02/13/23 Yung Rodriguez MD [address] [place] [address] Cardiovascular Disease 12/25/21 [facility] [address] [place] [address] Pharmacist Pharmacist Dowel Sticker Operator 02/06/22 [facility] [address] [place] [address] Assigned MTM Pharmacist 08/13/22 Billie Tucker, JANELL Specialty Munitions Worker Gastroenterology 12/10/22 Chantale Grande PA-C [address] [place] [address] [address] Maintenance Worker Dermatology 12/25/22 01/13/23 Paul Sanford MD 500 [place] [address] Gastroenterology 12/25/22 Paul Sanford MD [address] [place] [address] Referring Physician Gastroenterology 01/14/23 Jt Waters MD 500 [place] [address] Dermatology 01/14/23 Jt Waters MD [address] [place] [address] Assigned Surgical Provider 01/17/23 01/28/24 Bhavik Segura PA-C [address] [place] [address] [address] Maintenance Worker Gastroenterology 04/28/23 Paul Sanford MD [address] [place] [address] Assigned Gastroenterology Provider 07/18/23 Favian Mcknight MD [address] [place] [address] Dermatology 12/09/23 Favian Mcknight MD [address] [place] [address] Assigned Surgical Provider 01/29/24 Tatianna Horne, [facility] [address] [place] [address] Assigned MTM Pharmacist 07/08/24 Lyudmila Baltazar, JANELL Home Infusion Pie Topper 08/29/24 documented as of this encounter
--- OUTSIDE RECORDS SUMMARY | 2024-12-22 05:26 | XMS_ITS | Encounter Summary ---
Author Organization [facility] Address [address] [place] [address] Care Team Providers Care Supervisor Picking Crew Name Role Phone Sushant Schreiber MD Primary Care Provider [phone] No Ref-Primary, Physician Unavailable [phone] Cisco Caceres MD Unavailable [phone] Yung Rodriguez MD Unavailable Tat[facility] Unavailable [facility] Unavailable [phone] Billie Tucker RN Unavailable Unavailable Paul Sanford MD Unavailable [phone] aPul Sanford MD Unavailable [phone] Jt Waters MD Unavailable Jt Waters MD Unavailable Bhavik Segura PA-C Unavailable [phone] Paul Sanford MD Unavailable [phone] Favian Mcknight MD Unavailable [phone] Favian Mcknight MD Unavailable [phone] Tat[facility]na [facility] Unavailable [phone] Lyudmila Baltazar RN Unavailable Unavailabl e Encounter Details Date Type Department Care Team (Late st Contact Info) Description 03/19/2023 [facility] Medical Advice [address] [place] [phone] Dari Wiley RN Social History Tobacco Use [...] on file 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 Gender Identity Not on file Sexual Orientation Not on file documented as of this encounter Plan of Treatment Upcoming Encounters Date Type Department Care Team (Late st Contact Info) Description 01/12/2025 10:00 AM AUTOMOTIVE PAINT TECHNICIAN Office Visit [facility] Gastroenterology Clinic [address] [place] [phone] Paul Sanford MD [address] [place] [address] 712995 documented as of this encounter Visit Diagnoses Not on filedocumented in this encounter Care Teams Supervisor Picking Crew Relationship Specialty Start Date End Date Sushant Schreiber MD [facility] [address] [place] [address] PCP - General Family Medicine 12/02/21 No Ref-Primary, Physician 12/02/21 Cisco Caceres MD [address] [place] [address] 284 [place] [address] Fellow Gastroenterology 12/09/21 Yung Rodriguez MD [address] [place] [address] Cardiovascular Disease 12/25/21 Tat[facility]na Horne, [facility] [address] [place] [address] Pharmacist Pharmacist Mash Filter Operator 02/06/22 [facility] [address] [place] [address] Assigned MTM Pharmacist 08/13/22 Billie Tucker, RN Specialty Parts Specialist Gastroenterology 12/10/22 Paul Sanford MD 500 [place] [address] MD Gastroenterology 12/25/22 Paul Sanford MD 500 [place] [address] Referring Physician Gastroenterology 01/14/23 Jt Waters MD 500 [place] [address] MD Dermatology 01/14/23 Jt Waters MD [address] [place] [address] Assigned Surgical Provider 01/17/23 01/28/24 Bhavik Segura PA-C [address] [place] [address] 017885 Physician Labor Operator Gastroenterology 04/28/23 Paul Sanford MD [address] [place] [address] Assigned Gastroenterology Provider 07/18/23 Favina Mcknight MD [address] [place] [address] Dermatology 12/09/23 Favian Mcknight MD [address] [place] [address] Assigned Surgical Provider 01/29/24 [facility] 9 [place] [address] Assigned MTM Pharmacist 07/08/24 Lyudmila Baltazar, RN Home Infusion Place Change Roof Bolter 08/29/24 documented as of this encounter
--- OUTSIDE RECORDS SUMMARY | 2024-12-22 05:26 | XMS_ITS | Encounter Summary ---
Author Organization [facility] Address [address] [place] [address] Care Team Providers Care Watch Parts Grinder Name Role Phone Sushant Schreiber MD Primary Care Provider [phone] No Ref-Primary, Physician Unavailable [phone] Cisco Caceres MD Unavailable [phone] Yung Rodriguez MD Unavailable Tat[facility]na [facility] Unavailable Tatianna H[facility] Unavailable [phone] Billie Tucker RN Unavailable Unavailable Paul Sanford MD Unavailable Paul Sanford MD Unavailable [phone] Jt Waters MD Unavailable Jt Waters MD Unavailable Bhavik Segura PA-C Unavailable [phone] Paul Sanford MD Unavailable [phone] Favian Mcknight MD Unavailable [phone] Favian Mcknight MD Unavailable [phone] Tat[facility]na H[facility] Unavailable [phone] Lyudmila Baltazar RN Unavailable Unavailabl e Encounter Details Date Type Department Care Team (Late st Contact Info) Description 06/03/2023 [facility] Gastroenterology Clinic [address] [phone] Billie Tucker RN Social History Tobacco Use [...] on file 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 Gender Identity Not on file Sexual [...] st Contact Info) Description 01/12/2025 10:00 AM TWITCHELL OPERATOR Office Visit [facility] Gastroenterology Clinic [address] [phone] Paul Sanford MD [address] [place] [address] documented as of this encounter Visit Diagnoses Not on filedocumented in this encounter Care Teams Watch Parts Grinder Relationship Specialty Start Date End Date Sushant Schreiber MD [facility] [address] [place] [address] PCP - General Family Medicine 12/02/21 No Ref-Primary, Physician 12/02/21 Cisco Caceres MD [address] [place] [address] 284 [place] [address] Fellow Gastroenterology 12/09/21 Yung Rodriguez MD [address] [place] [address] Cardiovascular Disease 12/25/21 Tatianna Horne, [facility] 9 [place] [address] Pharmacist Pharmacist Senior Restaurant Manager 02/06/22 [facility] [address] [place] [address] Assigned MTM Pharmacist 08/13/22 Billie Tucker, RN Specialty Scarrer Gastroenterology 12/10/22 Paul Sanford MD 500 [place], [place] 599025 Gastroenterology 12/25/22 Paul Sanford MD [address] [place], [place] 220645 Referring Physician Gastroenterology 01/14/23 Jt Waters MD [address] [place], [place] 7[address]65 Dermatology 01/14/23 Jt Waters MD 500 [place] [address] Assigned Surgical Provider 01/17/23 01/28/24 Bhavik Segura PA-C [address] [place] [address] Physician Sack Cleaning Hand Gastroenterology 04/28/23 Paul Sanford MD [address] [place] [address] Assigned Gastroenterology Provider 07/18/23 Favian Mcknight MD [address] [place] [address] MD Dermatology 12/09/23 Favian Mcknight MD [address] [place] [address] Assigned Surgical Provider 01/29/24 Tatianna Horne [facility] [address] [place] [address] Assigned MTM Pharmacist 07/08/24 Lyudmila Baltazar, RN Home Infusion Management Internship 08/29/24 documented as of this encounter
--- OUTSIDE RECORDS SUMMARY | 2024-12-22 05:26 | XMS_ITS | Encounter Summary ---
Author Organization [facility] Address [address] [place] [address] Care Team Providers Care Maintenance Assistant Name Role Phone Sushant Schreiber MD Primary Care Provider No Ref-Primary, Physician Unavailable [phone] Cisco Caceres MD Unavailable [phone] Yung oRdriguez MD Unavailable Tatianna Horne [facility] Unavailable [phone] Billie Tucker RN Unavailable Unavailable Paul Sanford MD Unavailable [phone] Paul Sanford MD Unavailable [phone] Jt Waters MD Unavailable Bhavik Segura PA-C Unavailable +[phone] Paul Sanford MD Unavailable [phone] Favian Mcknight MD Unavailable [phone] Favian Mcknight MD Unavailable [phone] Tatianna Horne [facility] Unavailable [phone] Lyudmila Baltazar RN Unavailable Unavailabl e Encounter Details Date Type Department Care Team (Late st Contact Info) Description 08/16/2024 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 Gastroenterology Clinic [address] [phone] Paul Sanford MD [address] [place] [address] 31622455 documented as of this encounter Visit Diagnoses Not on filedocumented in this encounter Care Teams Maintenance Assistant Relationship Specialty Start Date End Date Sushant Schreiber MD [facility] [address] [address] PCP - General Family Medicine 12/02/21 No Ref-Primary, Physician 12/02/21 Cisco Caceres MD [address] [place] [address] 808785 Fellow Gastroenterology 12/09/21 Yung Rodriguez MD [address] [place], [place] 67[address] Cardiovascular Disease 12/25/21 Tatianna Horne, [facility] [address] [place] [address] Pharmacist Pharmacist State Farm Agent Team Member 02/06/22 Billie Tucker, RN Specialty Roller Bearing Inspector Gastroenterology 12/10/22 Paul Sanford MD [address] [place] [address] Gastroenterology 12/25/22 Paul Sanford MD [address] [place] [address] Referring Physician Gastroenterology 01/14/23 Jt Waters MD [address] [place] [address] Dermatology 01/14/23 Bhavik Segura PA-C [address] [place] [address] Physician Microfiche Duplicator Gastroenterology 04/28/23 Paul Sanford MD [address] [place] [address] Assigned Gastroenterology Provider 07/18/23 Favian Mcknight MD [address] [place] [address] Dermatology 12/09/23 Favian cMknight MD [address] [place] [address] Assigned Surgical Provider 01/29/24 Tatianna Horne, [facility] [address] [place] [address] Assigned MTM Pharmacist 07/08/24 Lyudmila Baltazar, RN Home Infusion Prick Stitcher 08/29/24 documented as of this encounter
--- OUTSIDE RECORDS SUMMARY | 2024-12-22 05:26 | XMS_ITS | Encounter Summary ---
Author Organization [facility] Address [address] [place] [address] Care Team Providers Care Developmental Behavioral Physician Name Role Phone Ambreen Suresh MD Primary Care Provider No Ref-Primary, Physician Primary Care Provider Sushant Schreiber MD Primary Care Provider [phone] No Ref-Primary, Physician Unavailable [phone] Cisco Caceres MD Unavailable [phone] Sabiha Hogan APRN BOTTOMER OPERATOR Unavailable [phone] Yung Rodriguez MD Unavailable Tatianna Horne [facility] Unavailable [phone] Tatianna oHrne [facility] Unavailable [phone] Tatianna Horne [facility] Unavailable [phone] Billie Tucker RN Unavailable Unavailable Chantale GrandeC Unavailable [phone] Paul Sanford MD Unavailable [phone] Paul Sanford MD Unavailable [phone] Jt Waters MD Unavailable Jt Waters MD Unavailable Bhavik SeguraC Unavailable [phone] Paul Sanford MD Unavailable [phone] Favian Mcknight MD Unavailable Favian Mcknight MD Unavailable [phone] Abhijeetmaryanne Tatiannashree Rojo [facility] Unavailable Lyudmila Baltazar RN Unavailable Unavailabl e Encounter Details Date Type Department Care Team (Late Contact Info) Description 06/28/[address] [phone] Julio Pierson MD [address] [place] [address] [facility] Social History Tobacco Use Types Packs/Day Years Used Date Smoking Tobacco: Former Cigarettes Q uit: 05/01/2015 Smokeless Tobacco: Never Alcohol Use Standard Drinks/Week Comments Not Currently 0 (1 standard drink = 0.6 oz pur e alcohol) stop drinking 06/2020 Sex and Gender Information Value Date Recorded Sex Assigned at Not on file Legal 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 HOME SUPPORT WORKER Gender Identity Not on file Sexual Orientation Not on file documented as of this encounter Plan of Treatment Upcoming Encounters Date Type Department Care Team (Late Contact Info) Description 01/12/2025 10:00 AM HOME SUPPORT WORKER Office Visit [facility] [address] [phone] Paul Sanford MD [address] [place] [address] documented as of this encounter Visit Diagnoses Not on filedocumented in this encounter Additional Health Concerns Infection Onset Date Last Indicated Resolved Time Rule Out COVID-19 12/02/2021 12/02/2021 12/02/2021 5:53 PM HOME SUPPORT WORKER COVID-19 02/27/2022 02/27/2022 03/20/2022 11:3 9 PM CDT documented as of this encounter Care Teams Developmental Behavioral Physician Relationship Specialty Start Date End Date Ambreen Suresh MD [address] [place] [address] PCP - General 07/07/03 02/21/13 No Ref-Primary, Physician PCP - General 02/22/13 12/01/21 Sushant Schreiber MD [facility] - [address] [address] PCP - General Family Medicine 12/02/21 No Ref-Primary, Physician 12/02/21 Cisco Caceres MD [address] [place] [address] Fellow Gastroenterology 12/09/21 Sabiha Hogan APRN BOTTOMER OPERATOR [address] [place] [address] Assigned Heart and Vascular Provider 12/15/21 02/13/23 Yung Rodriguez MD [address] [facility] [address] [place] [address] Cardiovascular Disease 12/25/21 Tatianna Horne [facility] [address] [place] [address] Pharmacist Pharmacist Bottle Dealer 02/06/22 Tatianna Horne [facility] [address] [place] [address] Assigned MTM Pharmacist 04/12/22 Tatianna Horne [facility] [address] [place] [address] Assigned [place] Pharmacist 08/13/22 Billie Tucker, RN Specialty Ambulance Mechanic Gastroenterology 12/10/22 Chantale Grande PA-C [address] [place] [address] Physician Christian Science Practitioner Dermatology 12/25/22 01/13/23 Paul Sanford MD [address] [place], [place] 326685 MD Gastroenterology 12/25/22 Paul Sanford MD [address] [place], [place] 5093[address] Referring Physician Gastroenterology 01/14/23 Jt Waters MD [address] [place], [place] 879085 MD Dermatology 01/14/23 Jt Waters MD [address] [place] [address] Assigned Surgical Provider 01/17/23 01/28/24 Bhavik Segura PA-C [address] [place], [place] 427725 Physician Christian Science Practitioner Gastroenterology 04/28/23 Paul Sanford MD [address] [place] [address] Assigned Gastroenterology Provider 07/18/23 Favian Mcknight MD [address] [place] [address] Dermatology 12/09/23 Favian Mcknight MD [address] [place] [address] Assigned Surgical Provider 01/29/24 Tatianna Horne [facility] [address] [place] [address] Assigned MTM Pharmacist 07/08/24 Lyudmila Baltazar, RN Home Infusion Basket Assembler 08/29/24 documented as of this encounter
--- OUTSIDE RECORDS SUMMARY | 2024-12-22 05:26 | XMS_ITS | Encounter Summary ---
Author Organization [facility] Address [address] [place] [address] Care Team Providers Care Biomathematician Name Role Phone Sushant Schreiber MD Primary Care Provider No Ref-Primary, Physician Unavailable [phone] Cisco Caceres MD Unavailable [phone] Yung Rodriguez MD Unavailable Tatianna Horne [facility] Unavailable [phone] Billie Tucker RN Unavailable Unavailable Paul Sanford MD Unavailable [phone] Paul Sanford MD Unavailable [phone] Jt Waters MD Unavailable Bhavik Segura PA-C Unavailable [phone] Paul Sanford MD Unavailable [phone] Favian Mcknight MD Unavailable [phone] Favian Mcknight MD Unavailable [phone] Tatianna Horne [facility] Unavailable [phone] Lyudmila Baltazar RN Unavailable Unavailabl e Encounter Details Date Type Department Care Team (Late st Contact Info) Description 08/03/2024 [facility] G[facility] [address] [place] [phone] Billie Tucker, RN Social History [...] on file 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 Gender Identity Not on file Sexual Orientation Not on file documented as of this encounter Plan of Treatment Upcoming Encounters Date Type Department Care Team (Late st Contact Info) Description 01/12/2025 10:00 AM AUTOMATIC FURNACE OPERATOR Office Visit [facility] Gastroenterology Clinic [address] [phone] Paul Sanford MD [address] [place] [address] 758755 documented as of this encounter Visit Diagnoses Not on filedocumented in this encounter Care Teams Biomathematician Relationship Specialty Start Date End Date Sushant Schreiber MD [facility] - [address] [address] PCP - General Family Medicine 12/02/21 No Ref-Primary, Physician 12/02/21 Cisco Caceres MD [address] [place] [address] [id number] Fellow Gastroenterology 12/09/21 Yung Rodriguez MD [address] [place], [place] 9[address] Cardiovascular Disease 12/25/21 Tatianna Horne, [facility] [address] [place] [address] Pharmacist Pharmacist Investigator Fraud 02/06/22 Billie Tucker, RN Specialty Computational Mathematician Gastroenterology 12/10/22 Paul Sanford MD [address] [place] [address] Gastroenterology 12/25/22 Paul Sanford MD [address] [place] [address] Referring Physician Gastroenterology 01/14/23 Jt Waters MD [address] [place] [address] Dermatology 01/14/23 Bhavik Segura PA-C [address] [place] [address] Physician [facility] Gastroenterology 04/28/23 Paul Sanford MD [address] [place] [address] Assigned Gastroenterology Provider 07/18/23 Favian Mcknight MD [address] [place] [address] Dermatology 12/09/23 Favian Mcknight MD [address] [place] [address] Assigned Surgical Provider 01/29/24 Tatianna Horne, [facility] [address] [place] [address] Assigned MTM Pharmacist 07/08/24 Lyudmila Baltazar, RN Home Infusion Traffic Recorder 08/29/24 documented as of this encounter
[2024-12-22 06:02] VITALS: BP 155/95; PULSE 85; RESP 18; TEMP 36.7; O2SAT 96
== END 2024-12-22 06:04 | disposition home or self-care (01) ==
PROVIDERS: Emergency Provider Family Medicine; PCP Family Medicine
DX: S83.92XA Sprain of unspecified site of left knee, initial encounter (principal); X50.1XXA Overexertion from prolonged static or awkward postures, initial encounter; Y93.23 Activity, snow (alpine) (downhill) skiing, snowboarding, sledding, tobogganing and snow tubing
CPT/HCPCS: 73562; 99283; A9270

== ENCOUNTER 2025-06-18 11:10 | Emergency (ER) | payer OTHER, SELFPAY ==
--- OUTSIDE RECORDS SUMMARY | 2025-06-06 14:00 | XMS_ITS | Encounter Summary ---
Author Organization [facility] Address [address] [place] [address] Care Team Providers Care Predatory Animal Exterminator Name Role Phone Sushant Schreiber MD Primary Care Provider [phone] No Ref-Primary, Physician Unavailable Cisco Caceres MD Unavailable Yung Rodriguez MD Unavailable Tatianna Horne [facility] Unavailable Billie Tucker RN Unavailable Unavailable Paul Sanford MD Unavailable Paul Sanford MD Unavailable [phone] Jt Waters MD Unavailable Bhavik Segura PA-C Unavailable [phone] Favian Mcknight MD Unavailable [phone] Tatianna Horne [facility] Unavailable [phone] Lyudmila Baltazar RN Unavailable Unavailabl e Paul Sanford MD Unavailable Favian Mcknight MD Unavailable [phone] Reason for Visit * Home Infusion Authorization (Routine) - Authorized Specialty Diagnoses / Procedures Referred By Contjohana t Referred To Contact Home Infusion and Injection Services Diagnoses Crohn's disease of both small and large intestine with other complication [facility] [address] [place] [phone] Phone: tel: fax: Referral ID Status Reason Start Date Expiration Date V isits Requested Visits Authorized [id number] Authorized 07/21/2024 07/21/2025 [phone] Encounter Details Date Type Department Care Team (Late st Contact Info) Description 06/06/2025 2:00 PM CDT Home Care Visit [facility] [address] [place] [phone] Tatianna Hancock RN Social History Tobacco Use Types Packs/Day [...] file 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 Gender Identity Not on file Sexual Orientation Not on file documented as of this encounter Last Filed Vital Signs Vital Sign Reading Time Taken Comments Blood Pressure 145/96 06/06/2025 2:11 PM CDT Pulse 79 06/06/2025 2:11 PM CDT Temperature 36.7 C (98 F) 06/06/2025 2:11 PM CDT Respiratory Rate 16 06/06/2025 2:11 PM CDT Oxygen Saturation 97% 06/06/2025 2:11 PM CDT Inhaled Oxygen Concentration - - Weight - - Height - - Body Mass Index - - documented in this encounter Progress Notes * Tatianna Hancock RN - 06/06/2025 1:17 PM CDT Nursing Visit Note: Nurse visit today for Inf[facility] infusion for Demetri Castillo. Edge Stainer Machine present during visit today: Not Applicable. Intravenous Access: Peripheral IV placed. Infusion Nursing Note: Pre-infusion [...] or cancer diagnosis? (i.e., Multiple Sclerosis, Guillain [place], seizures, neurological changes) Are you receiving any [...] next infusion, please call your resident care director or triage nurse at your clinic to notify them so we can adequately serve you. Note: [facility] for [facility] infusion. pt doing well today. no Crohn???s flares since last infusion. pt does c/o arthralgias in hands for the last week. Saline administered: 30 (ml) Supply Check: Does the patient have all the supplies they need for the next visit? Yes Next visit plan: 08/01/25 Tatianna Hancock RN 06/06/2025 documented in this encounter Plan of Treatment Not on file documented as of this encounter Visit Diagnoses Not on filedocumented in this encounter Care Teams Predatory Animal Exterminator Relationship Specialty Start Date End Date Sushant Schreiber MD [address] [address] PCP - General Family Medicine 12/02/21 No Ref-Primary, Physician 12/02/21 Cisco Caceres MD Fellow Gastroenterology 12/09/21 Yung Rodriguez MD [address] [facility] [address] [place], [place] [address] Cardiovascular Disease 12/25/21 Tatianna Horne, [facility] [address] [place], [place] [address] Pharmacist Pharmacist Process Plant Operator 02/06/22 Billie Tucker, RN Specialty Binman Gastroenterology 12/10/22 Paul Sanford MD Gastroenterology 12/25/22 Paul Sanford MD Referring Physician Gastroenterology 01/14/23 Jt Waters MD [address] [place] [address] 250645 Dermatology 01/14/23 Bhavik Segura PA-C [address] [place] [address] 967205 Physician Hide Inspector And Sorter Gastroenterology 04/28/23 Favian Mcknight MD [address] [place] [address] [id number] Dermatology 12/09/23 Tatianna Horne [facility] [address] [place] [address] 135005 Assigned MTM Pharmacist 07/08/24 Lyudmila Baltazar, RN Home Infusion Adjunct Spanish Instructor 08/29/24 Paul Sanford MD Home Infusion Following Provider Gastroenterology 09/07/24 Favian Mcknight MD [address] [place] [address] Assigned Dermatology Provider 02/05/25 documented as of this encounter
--- OUTSIDE RECORDS SUMMARY | 2025-06-13 08:58 | XMS_ITS | Encounter Summary ---
Author Organization [facility] Address [address] [place] [id number] Care Team Providers Care Department Editor Name Role Phone Sushant Schreiber MD Primary Care Provider No Ref-Primary, Physician Unavailable Cisco Caceres MD Unavailable [phone] Yung Rodriguez MD Unavailable Tatianna Horne [facility] Unavailable Billie Tucker RN Unavailable Unavailable Paul Sanford MD Unavailable Paul Sanford MD Unavailable Jt Waters MD Unavailable Bahvik Segura PA-C Unavailable [phone] Favian Mcknight MD Unavailable [phone] Tatianna Horne [facility] Unavailable [phone] Lyudmila Baltazar RN Unavailable Unavailabl e Paul Sanford MD Unavailable [phone] Favian Mcknight MD Unavailable [phone] Reason for Visit * Reason Comments Nausea, Vomiting, & Diarrhea * Auth/Cert Specialty Diagnoses / Procedures Referred By Contjohana t Referred To Contact EMERGENCY MEDICINE Diagnoses Crohn's disease of colon with complication (H) Clemente Abebe, DO [address] [place] [address] Phone: tel: fax: [facility] Emergency Dept [address] [place] [address] Phone: tel: fax: Referral ID Status Reason Start Date Expiration Date Visits Re quested Visits Authorized [id number] 1 1 Encounter Details Date Type Department Care Team (Late st Contact Info) Description 06/13/2025 8:58 AM CDT - 06/15/2025 3:00 PM CDT Hospital Encounter [facility] Pediatric [address] [place] [address] Clemente Mensah MD [facility] [address] [place], [place] [id number] Clemente Abebe, [address] [place], [place] [id number] Crohn's disease of colon with complication (H) (Primary Dx) Discharge Disposition: Home or Self Care Social History Tobacco Use Types Packs/Day Years Used Date Smoking Tobacco: Former Cigarettes Q uit: 05/01/2015 Smokeless Tobacco: Never Alcohol Use Standard Drinks/Week Comments Not Currently 0 (1 standard drink = 0.6 oz pur e alcohol) stop drinking 06/2020 PHQ-2 Answer Date Recorded PHQ-2 Score 0 12/08/2023 Adolescent Education Answer Date Record ed Getting School Help Needed Not on file 08/19 Food Insecurity Answer Date Recorded Within the past 12 months, d id you worry that your food would run out before you got money to buy more? No 06/13/2025 Within the past 12 months, d id the food you bought just not last and you didn t have money to get more? No 06/13/2025 Housing Stability Answer Date Recorded Do you have housing? (Housin g is defined as stable permanent housing and does not include staying outside in a car, in a tent, in an abandoned building, in an overnight nursing home, or couch-surfing.) Yes 06/13/2025 Are you worried about losing your housing? No 06/13/2025 Financial Resource Strain Answer Date R ecorded Within the past 12 months, h ave you or your family members you live with been unable to get utilities (heat, electricity) when it was really needed? No 06/13/2025 Transportation Needs Answer Date Record ed Within the past 12 months, h as lack of transportation kept you from medical appointments, getting your medicines, non-medical meetings or appointments, work, or from getting things that you need? No 06/13/2025 Interpersonal Safety Answer Date Record ed Do you feel physically and e motionally safe where you currently live? Yes 06/13/2025 Within the past 12 months, h ave you been hit, slapped, kicked or otherwise physically hurt by someone? No 06/13/2025 Within the past 12 months, h ave you been humiliated or emotionally abused in other ways by your partner or ex-partner? No 06/13/2025 Sex and Gender Information Value Date Recorded Sex Assigned at Not on file Legal 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 [employer]OLUNTE[employer] Gender Identity Not on file Sexual Orientation Not on file documented as of this encounter Last Filed Vital Signs Vital Sign Reading Time Taken Comments Blood Pressure 138/72 06/15/2025 3:00 PM CDT Pulse 82 06/15/2025 12:05 AM CDT Temperature 36.9 C (98.4 F) 06/15/2025 3:00 PM CDT Respiratory Rate 16 06/15/2025 3:00 PM CDT Oxygen Saturation 98% 06/15/2025 3:00 PM CDT Inhaled Oxygen Concentration - - Weight 117.1 kg (258 lb 2.5 oz) 06/13/2025 2:51 PM CDT Height 177.8 cm (5' 10) 06/13/2025 2:51 PM CDT Body Mass Index 37.04 06/13/2025 2:51 PM CDT documented in this encounter Discharge Summaries * Noé Delong, RN - 06/15/2025 3:29 PM CDT Patient's After Visit Summary was reviewed with patient and/or father. Patient verbalized understanding of After Visit Summary, recommended follow up and was given an opportunity to ask questions. Discharge medications sent home with patient/family: YES Discharged with father documented in this encounter Medications at Time of Discharge acetaminophen (TYLENOL) 325 MG tabletIndication s:Crohn's disease of both small and large intestine with other complication (H) Take 2 tablets (650 mg) by mouth once every eight weeks. Administer 30 minutes prior to infusion 12 tablet 06/05/2025 11:59 PM CDT 4 11/14/20 25 acetaminophen (TYLENOL) 325 MG tablet Take 325-650 mg by mouth 3 times daily as needed for mild pain, fever or headaches amphetamine-dext roamphetamine (ADDERALL XR) 20 MG 24 hr capsule Take 20 mg by mouth daily as needed. azaTHIOprine (IMURAN) 50 MG tabletIndication s:Crohn's disease of both small and large intestine with other complication (H) Take 4 tablets (200 mg) by mouth daily. 360 tablet 5 cetirizine (ZYRTEC) 10 MG tabletIndication s:Urticaria TAKE ONE PILL (10MG DAILY) FOR HIVES. IF NOT CONTROLLING YOUR HIVES, START TAKING ONE PILL TWICE DAILY (MORNING AND EVENING). 60 tablet 2 5 diphenhydrAMINE (BENADRYL) 25 MG capsuleIndicatio ns:Crohn's disease of both small and large intestine with other complication (H) Take 2 capsules (50 mg) by mouth once every eight weeks. Administer 30 minutes prior to infusion 12 capsule 06/05/2025 11:59 PM CDT 4 11/14/20 25 diphenhydrAMINE (BENADRYL) 50 MG/ML injectionIndicat ions:Crohn's disease of both small and large intestine with other complication (H) Inject 1 mL (50 mg) over 3-5 minutes into the vein via push as needed for other (infusion reaction). For RN use only. Draw up in a syringe and administer IV push. Discard remainder of vial. [id number] mL 06/05/2025 11:59 PM CDT 4 11/14/20 25 Emergency Supply Kit, PIV,Indications: Crohn's disease of both small and large intestine with other complication (H) Patient use for emergency only. Contents: 3 sodium chloride 0.9% flushes, 1 IV start kit, 1 microclave ext set 14, 1 each IV Cath 22 G/1 and 24G/3/4, 6 alcohol prep pads, 4 nitrile gloves (med). Call to reorder. [id number] kit 4 11/14/20 25 EPINEPHrine (ANY BX GENERIC EQUIV) 0.3 MG/0.3ML injection 2-packIndication s:Crohn's disease of both small and large intestine with other complication (H) Inject 0.3 mLs (0.3 mg) into the muscle as needed for anaphylaxis (infusion reaction). Administer into the mid-thigh in case of severe anaphylaxis (wheezing, throat tightening, mouth swelling, difficulty breathing). May repeat dose one time in 5-15 minutes if symptoms persist. [id number] mL 02/13/2025 11:59 PM CDT 4 11/14/20 25 famotidine (PEPCID) 20 MG tabletIndication s:Crohn's disease of colon with complication (H) Take 1 tablet (20 mg) by mouth 2 times daily as needed. 60 tablet 5 inFLIXimab-dyyb (INFLECTRA) 1,300 mg in sodium chloride 0.9 % 500 mL via gravity infusionIndicati ons:Crohn's disease of both small and large intestine with other complication (H) Infuse 1,300 mg over 1 hours into the vein once every eight weeks. When complete, flush bag with 20 mL NS to flush tubing. 06/16 Ok to resume following hospitalization men [id number] mL 06/05/2025 11:59 PM CDT 4 11/14/20 25 methylPREDNISolo ne Na Suc (PF) (solu-MEDROL) 40 mg in sodium chloride 0.9 % 4 mL injectionIndicat ions:Crohn's disease of both small and large intestine with other complication (H) Inject 40 mg over 3-5 minutes into the vein via push once every eight weeks. Administer 30 minutes prior to infusion 55427 mL 06/05/2025 11:59 PM CDT 4 11/14/20 25 methylPREDNISolo ne Na Suc, PF, (SOLU-MEDROL) 125 mg/2 mL injectionIndicat ions:Crohn's disease of both small and large intestine with other complication (H) Inject 2 mLs (125 mg) over 3-5 minutes into the vein via push as needed (infusion reaction). For RN use only. Reconstitute vial. Draw up methylPREDNISolone in a syringe and administer. Discard remainder of vial. [id number] mL 4 11/14/20 25 nitazoxanide (ALINIA) 500 MG tabletIndication s:Intra-Abdomina l Infection Take 1 tablet (500 mg) by mouth every 12 hours for 12 days. 24 tablet 5 06/27/20 25 simethicone (MYLICON) 80 MG chewable tabletIndication s:Crohn's disease of colon with complication (H) Take 1 tablet (80 mg) by mouth every 6 hours as needed for cramping. 30 tablet 5 sodium chloride 0.9% infusionIndicati ons:Crohn's disease of both small and large intestine with other complication (H) Infuse 500 mLs into the vein as needed for other (infusion reaction). In case of mild reaction, administer via gravity at 20 mL/hr to keep vein open. In case of severe reaction, administer via gravity wide open on prime setting. [id number] mL 12/19/2024 11:59 PM VOLUNTEER RECRUITER 4 12/17/19 26 sodium chloride, PF, 0.9% PF flushIndications :Crohn's disease of both small and large intestine with other complication (H) Inject 10 mLs into the vein as needed for other (infusion reaction). For RN use only as needed for infusion reaction [id number] mL 06/05/2025 11:59 PM CDT 4 11/14/20 25 sodium chloride, PF, 0.9% PF flushIndications :Crohn's disease of both small and large intestine with other complication (H) Inject 10 mLs into the vein as needed for line flush. Flush IV before and after medication administration as directed and/or at least every 12 hours. [id number] mL 06/05/2025 11:59 PM CDT 4 11/14/20 25 documented as of this encounter Progress Notes * Dittes, Eleuterio, MD - 06/15/2025 12:26 PM CDT [facility] Infectious Disease Progress Note Assessment and Plan: Date of Admission: 06/13/2025 Date of Consult (When I saw the patient): 06/15/25 Assessment & Plan Demetri Castillo is a 34 year old male who was admitted on 06/13/2025. Impression: 1 34-year-old male with underlying Crohn's disease well-controlled, now with acute diarrhea, found to have Cryptosporidium and stool likely infectious diarrhea and colitis related to that 2 Crohn's disease with prior bowel involvement and surgeries, well-controlled more recently on Remicade REC 1 given acute onset and finding of Cryptosporidium probably the cause, usually a self-limited disease not requiring treatment but given his immunosuppression, relatively severe disease requiring hospitalization and confusion possibly created by the alternative diagnosis of inflammatory bowel flare definitely treat, 2 some improvement, plan on a 2-week course of nitazoxanide if you are able to get a supply, probably okay disposition to watch as an outpatient, if it does not improve likely means the diagnosis is actually a flare of his inflammatory bowel disease rather than Cryptosporidium Interval History: no new complaints and doing well; no cp, sob, n/v/d, or abd pain. Some improvement, tolerating nitazoxanide without difficulty Medications: Current Facility-Administered Medications Medication Dose Route Frequency Provider Last Rate Last Admin azithromycin (ZITHROMAX) tablet 500 mg 500 mg Oral Daily Shola Alonzo MD 500 mg at 06/15/25 0841 enoxaparin ANTICOAGULANT (LOVENOX) injection 40 mg 40 mg Subcutaneous Q24H Tiffanie Youssef PA-C 40 mg at 06/13/25 1514 famotidine (PEPCID) tablet 20 mg 20 mg Oral BID Clemente Abebe DO 20 mg at 06/15/25 1134 nitazoxanide (ALINIA) tablet 500 mg 500 mg Oral Q12H [facility] (07/05) Shola Hill MD 500 mg at 06/15/25 0918 sodium chloride (PF) 0.9% PF flush 3 mL 3 mL Intracatheter Q8H [facility] Tiffanie Youssef PA-C Physical Exam: Blood pressure (!) 143/90, pulse 82, temperature 98.6 ??F (37 ??C), temperature source Oral, resp. rate 16, height 1.778 m (5' 10), weight 117.1 kg (258 lb 2.5 oz), SpO2 96%. Wt Readings from Last 2 Encounters: 06/13/25 117.1 kg (258 lb 2.5 oz) 02/13/25 130.2 kg (287 lb) Vital Signs with Ranges Temp: [98.6 ??F (37 ??C)-99.8 ??F (37.7 ??C)] 98.6 ??F (37 ??C) Pulse: [82-86] 82 Resp: [16-18] 16 BP: (143-175)/(81-100) 143/90 SpO2: [95 %-100 %] 96 % Constitutional: Awake, alert, cooperative, no apparent distress Lungs: Clear to auscultation bilaterally, no crackles or wheezing Cardiovascular: Regular rate and rhythm, normal S1 and S2, and no murmur noted Abdomen: Normal bowel sounds, soft, non-distended, non-tender Skin: No rashes, no cyanosis, no edema Other: Data: All microbiology laboratory data reviewed. Recent Labs Lab Test 06/14/25 0549 06/13/25 0939 04/11/25 1230 WBC 12.4* 15.2* 8.4 HGB 15.8 17.6 14.9 HCT 43.8 48.5 42.6 MCV 90 90 94 PLT 169 208 216 Recent Labs Lab Test 06/14/25 0549 06/13/25 0939 12/08/23 1639 CR 0.85 0.99 0.87 Recent Labs Lab Test 12/08/23 1639 SED 29* No lab results found. Invalid input(s): UC * Clemente Abebe, - 06/14/2025 11:10 AM CDT [facility] Hospitalist Progress Note Name: Demetri Castillo Provider: Clemente Abebe DO MPH Date of Service: 06/14/2025 Summary of Stay: Demetri Castillo is a 34 year old male with a history of inflammatory bowel disease admitted on 06/13/2025 with watery diarrhea initially concerning for Crohn's flare but now more likely secondary to Cryptosporidium. Problem List: Cryptosporidium gastroenteritis: The diarrhea appears less likely related to an IBD flare and more likely infectious. ID consulted, will continue azithromycin and niazoxanide. Continue IVF, dietary advancement, and antiemetics. No antidiarrheal agents for now given his infection. Crohn's disease: The initial concern was for an IBD flare. This appears less likely at this point. At baseline he is on Inflextra and azathioprine. GI consulted, initially he was treated with IV steroids but those have now been discontinued. DVT Prophylaxis: Pneumatic Compression Devices Code Status: Full Code Diet: Snacks/Supplements Adult: Ensure Plus High Protein; Between Meals Advance Diet as Tolerated: Regular Diet Adult; Regular Diet Adult Story Catheter: Not present Disposition: Expected discharge in 1-2 days to home. Goals prior to discharge include determine antibiotic plan. Incidental Findings: As above. Family updated today: No Medically Ready for Discharge: Anticipated Tomorrow 40 MINUTES SPENT BY ME on the date of service doing chart review, history, exam, documentation & further activities per the note. Interval History Assumed care from previous hospitalist. The history was fully reviewed. The patient reports doing well. No chest pain or shortness of breath. No nausea, vomiting, but still clear and nonbloody diarrhea. No fevers. No other specific complaints identified. -Data reviewed today: I personally reviewed all new labs and imaging results over the last 24 hours. Physical Exam Temp: 99.2 ??F (37.3 ??C) Temp src: Oral BP: (!) 164/69 Pulse: 85 Resp: 16 SpO2: 98 % O2 Device: None (Room air) Vitals: 06/13/25 0855 06/13/25 1451 Weight: 118 kg (260 lb 2.3 oz) 117.1 kg (258 lb 2.5 oz) Vital Signs with Ranges Temp: [98.6 ??F (37 ??C)-99.3 ??F (37.4 ??C)] 99.2 ??F (37.3 ??C) Pulse: [77-85] 85 Resp: [16-18] 16 BP: (130-164)/(69-98) 164/69 SpO2: [95 %-98 %] 98 % No intake/output data recorded. GENERAL: No apparent distress. Awake, alert, and fully oriented. HEENT: Normocephalic, atraumatic. Extraocular movements intact. CARDIOVASCULAR: Regular rate and rhythm without murmurs or rubs. No S3. PULMONARY: Clear bilaterally. GASTROINTESTINAL: Soft, non-tender, non-distended. Bowel sounds normoactive. EXTREMITIES: No cyanosis or clubbing. No edema. NEUROLOGICAL: CN 2-12 grossly intact, no focal neurological deficits. DERMATOLOGICAL: No rash, ulcer, bruising, nor jaundice. Medications Current Facility-Administered Medications Medication Dose Route Frequency Provider Last Rate Last Admin lactated ringers infusion Intravenous Continuous Tiffanie Youssef PA-C 100 mL/hr at 06/14/25 0950Rate Verify at 06/14/25 0950 Current Facility-Administered Medications Medication Dose Route Frequency Provider Last Rate Last Admin azithromycin (ZITHROMAX) tablet 500 mg 500 mg Oral Daily Shola Alonzo MD 500 mg at 06/14/25 0948 enoxaparin ANTICOAGULANT (LOVENOX) injection 40 mg 40 mg Subcutaneous Q24H Tiffanie Youssef PA-C 40 mg at 06/13/25 1514 nitazoxanide (ALINIA) tablet 500 mg 500 mg Oral Q12H [facility] (07/05) Shola Hill MD 500 mg at 06/14/25 0948 sodium chloride (PF) 0.9% PF flush 3 mL 3 mL Intracatheter Q8H [facility] Tiffanie Youssef PA-C Data Laboratory: Recent Labs Lab 06/14/25 0549 06/13/25 0939 WBC 12.4* 15.2* HGB 15.8 17.6 HCT 43.8 48.5 MCV 90 90 PLT 169 208 Recent Labs Lab 06/14/25 0549 06/13/25 0939 NA 136 136 POTASSIUM 3.8 3.6 CHLORIDE 102 98 CO2 23 24 ANIONGAP 11 14 GLC 95 102* BUN 11.8 15.0 CR 0.85 0.99 GFRESTIMATED >90 >90 ASIF 8.4* 8.8 No results for input(s): CULT in the last 168 hours. Imaging: No results found for this or any previous visit (from the past 24 hours). Clemente Abebe DO MPH [facility] Hospitalist Vitaliy WilliReggie Hutchins [facility] [place] [address] 06/14/2025 * Eleuterio Celaya MD - 06/14/2025 10:37 AM CDT Patient seen, full note to follow, acute diarrhea patient on biologic agents for inflammatory boweldisease, Cryptosporidium found likely the cause, have been able to get nitazoxanide and started, follow for clinical improvement * Paloma Soliz PA-C - 06/14/2025 9:39 AM CDT Images from the original note were not included. Addendum: Discussed with Dr. Narayanan. GI will be signing off due to no further GI needs. Patient can follow-up with primary IBD provider through [facility] after discharge. Please call back if needed. GASTROENTEROLOGY PROGRESS NOTE CC: diarrhea and abdominal pain SUBJECTIVE: He states his diarrhea seems to be improving over the last day. He had only 6 episodes of looser stools yesterday and today has not yet had a bowel movement. He is passing gas. He did have nausea last night which has improved. He states he currently does not have/notice any abdominal pain. He denies any melena, hematochezia, vomiting, or hematemesis. OBJECTIVE: General Appearance: alert and cooperative BP (!) 145/96 (BP Location: Left arm) Pulse 85 Temp 99.3 ??F (37.4 ??C) (Oral) Resp 18 Ht 1.778 m (5' 10) Wt 117.1 kg (258 lb 2.5 oz) SpO2 96% BMI 37.04 kg/m?? Temp (24hrs), Av ??F (37.2 ??C), Min:98.6 ??F (37 ??C), Max:99.3 ??F (37.4 ??C) Patient Vitals for the past 72 hrs: Weight 06/13/25 1451 117.1 kg (258 lb 2.5 oz) 06/13/25 0855 118 kg (260 lb 2.3 oz) No intake or output data in the 24 hours ending 06/14/25 0939 PHYSICAL EXAM Constitutional: healthy, alert, and no distress Cardiovascular: negative, PMI normal. No lifts, heaves, or thrills. RRR. No murmurs, clicks gallopsor rub Respiratory: negative, Percussion normal. Good diaphragmatic excursion. Lungs clear Abdomen: Abdomen soft, non-tender. BS normal. No masses, organomegaly, positive findings: tenderness mild LLQ, RLQ, suprapubic Additional Comments: ROS, FH, SH: See initial GI consult for details. I have reviewed the patient's new clinical lab results: Recent Labs Lab Test 06/14/25 0549 06/13/25 0939 04/11/25 1230 12/04/21 0735 12/03/21 0315 WBC 12.4* 15.2* 8.4 < > 17.2* HGB 15.8 17.6 14.9 < > 9.9* MCV 90 90 94 < > 79 PLT 169 208 216 < > 350 INR -- -- -- -- 1.19* < > = values in this interval not displayed. Recent Labs Lab Test 06/14/25 0549 06/13/25 0939 12/08/23 1639 POTASSIUM 3.8 3.6 3.7 CHLORIDE 102 98 102 CO2 28 BUN 11.8 15.0 13.7 ANIONGAP 11 14 9 Recent Labs Lab Test 06/14/25 0549 06/13/25 0939 04/11/25 1230 01/18/24 0920 12/08/23 1645 12/08/23 1639 11/21/23 0106 ALBUMIN 3.8 4.3 4.3 < > -- < > 4.3 BILITOTAL 0.6 0.5 0.4 < > -- < > 0.3 ALT 66 91* 47 < > -- < > 33 AST 48* 56* 38 < > -- < > 34 PROTEIN -- -- -- -- Negative -- -- LIPASE -- 24 -- -- -- -- 24 < > = values in this interval not displayed. Imaging studies: EXAM: CT ABDOMEN PELVIS W CONTRAST LOCATION: [facility] DATE: 06/13/2025 IMPRESSION: 1. New finding of mild wall thickening involving the distal transverse colon extending to the descending colon. This could represent a distal colitis. Given the history this could be an active mild Crohn's colitis. No bowel obstruction, no abscess or fistula identified. Infectious colitis remains in the differential. 2. A few larger mesenteric lymph nodes are noted compared to 11/21/2023. Assessment: Mr. Demetri Castillo is a 34 year old male with ilecolonic Crohn's disease in 2019. Has had sigmoidectomy, partial ileocecetomy, and distal small bowel resection in 2020 with later ostomy takedown. Also has history of adhesion lysis surgery and incisinal hernia surgery x3. He has a history of peripheral axial spondyloarthritis, pericarditis, pericardial effusion, and previous CMV viremia. ED results showed elevated ALT, AST, and CRP. Liver transaminases have been trending downward.CRP was elevated at 21.71 at admission with mild WBC elevation. He has been taking his Inflectra (last dose 06/06/25) but was unable to receive his azathioprine over the last several months. Fecal calprotectin is pending. CT showed distal colitis which could be from his Cryptosporidium infection and/or worsening Crohn's. Stool pathogen was positive for Cryptosporidium for which he is following with infectious disease for treatment. He is overall improving since beginning treatment for Cryptosporidium. If he begins worsening, we could consider colonoscopy/flex sig to rule out Crohn's flare or trial of steroid. Plan: Diarrhea in the setting of known Crohn's Disease - Continue with treatment with Infectious Disease (azithromycin and niazoxanide) for cryptosporidium - Continue with azathioprine and Inflectra for Crohn's - Follow-up with [facility] GI outpatient Time spent: 23 minutes, greater than 50% of the visit was spent in counseling/coordination of care. JAVI Dahl [facility] ([facility]) documented in this encounter H&P Notes * Tiffanie Youssef PA-C - 06/13/2025 10:58 AM CDT [facility] History and Physical - Hospitalist Service Date of Admission: 06/13/2025 Assessment & Plan Demetri Castillo is a 34 year old male with Pmhx of Crohn's disease, lumbar radiculopathy, who was admitted on 06/13/2025 with concern for IBD flare. In the ED afebrile, tachycardic. Lab work with leukocytosis, CRP is 21. ALT 91, AST 56. CT Abdomen pelvis with new wall thickening from distal transverse to descending colon concerning for colitis. No abscess. Given 1 L NS. GI contacted from the ED who recommended treatment for Crohn's flare with steroids ifC difficile testing was negative. Patient was unable to tolerate oral intake thus admission was requested for IBD flare. Acute Flare of IBD Crohn's Disease S/p small bowel and colon resections Patient with history of Crohn's disease historically in remission/well controlled treated with Inflextra and azathioprine. Lapse in azathioprine due to issues with refilling. Follows with Dr Sanford of GI. Presents with intractable profuse watery diarrhea, stool incontinence, dehydration, lower abdominalcramping. No hematochezia. Imaging shows concern for colitis, no peroration/fistula/abscess. No known ill contacts. Could be infectious, significant other runs a day care. -admit IP due to intractable symptoms/unable to tolerate oral intake -GI Consult -c diff/enteric pending -may consider empiric flagyl pending course -start Solumedrol if c diff panel negative -IV fluids -analgesia, anti emetics prn -DVT ppx with lovenox -diet as tolerated Diet: ADAT DVT Prophylaxis: Enoxaparin (Lovenox) SQ Story Catheter: Not present Cardiac Monitoring: None Code Status: Full Code Clinically Significant Risk Factors Present on Admission # Obesity: Estimated body mass index is 36.28 kg/m?? as calculated from the following: Height as of this encounter: 1.803 m (5' 11). Weight as of this encounter: 118 kg (260 lb 2.3 oz). Disposition Plan Tiffanie Youssef PA-C Chief Complaint Abdominal pain, diarrhea History is obtained from the patient History of Present Illness Demetri Castillo is a 34 year old male who presents with severe fatigue, dehydration, and frequent diarrhea since June 11, 2025, along with associated abdominal pain and tenderness. Presented to the ED due to intractable watery diarrhea. He has had up to 20-30 episodes of diarrheaa day since symptom onset. He has had stool incontinence. No hematochezia. He has had associated fatigue and malaise. Poor appetite, nausea. No vomiting. He has right lower quadrant abdominal discomfort described as cramping. Denies any recent changes in medications or diet. No fever or chills. No known ill contacts but his girlfriend does run a daycare. He has been taking Remicade (generic) and azathioprine for Crohn's disease. He reports remission atleast 6 months ago. Approximately 2 months ago, azathioprine was not refilled due to pharmacy issues, resulting in a lapse of nearly 2 months without the medication. Despite this, he reported feelingwell until the recent onset of symptoms. He last had inflectra infusion on June 06. Past Medical History Past Medical History: Diagnosis Date Back injury Past Surgical History Past Surgical History: Procedure Laterality Date COLONOSCOPY N/A 09/29/2023 Procedure: COLONOSCOPY, WITH POLYPECTOMY AND BIOPSY; Surgeon: Paul Sanford MD; Location: [facility] OR GENITOURINARY SURGERY Prior to Admission Medications Prior to Admission Medications Prescriptions Last Dose Informant Patient Reported? Taking? EPINEPHrine (ANY BX GENERIC EQUIV) 0.3 MG/0.3ML injection 2-pack No No Sig: Inject 0.3 mLs (0.3 mg) into the muscle as needed for anaphylaxis (infusion reaction). Administer into the mid-thigh in case of severe anaphylaxis (wheezing, throat tightening, mouth swelling, difficulty breathing). May repeat dose one time in 5-15 minutes if symptoms persist. Emergency Supply Kit, PIV, No No Sig: Patient use for emergency only. Contents: 3 sodium chloride 0.9% flushes, 1 IV start kit, 1 microclave ext set 14, 1 each IV Cath 22 G/1 and 24G/3/4, 6 alcohol prep pads, 4 nitrile gloves (med). Call to reorder. acetaminophen (TYLENOL) 325 MG tablet Yes No Sig: Take 325-650 mg by mouth 3 times daily as needed for mild pain, fever or headaches acetaminophen (TYLENOL) 325 MG tablet No No Sig: Take 2 tablets (650 mg) by mouth once every eight weeks. Administer 30 minutes prior to infusion azaTHIOprine (IMURAN) 50 MG tablet No No Sig: Take 4 tablets (200 mg) by mouth daily. cetirizine (ZYRTEC) 10 MG tablet No No Sig: TAKE ONE PILL (10MG DAILY) FOR HIVES. IF NOT CONTROLLING YOUR HIVES, START TAKING ONE PILL TWICE DAILY (MORNING AND EVENING). diphenhydrAMINE (BENADRYL) 25 MG capsule No No Sig: Take 2 capsules (50 mg) by mouth once every eight weeks. Administer 30 minutes prior to infusion diphenhydrAMINE (BENADRYL) 50 MG/ML injection No No Sig: Inject 1 mL (50 mg) over 3-5 minutes into the vein via push as needed for other (infusion reaction). For RN use only. Draw up in a syringe and administer IV push. Discard remainder of vial. inFLIXimab-dyyb (INFLECTRA) 1,300 mg in sodium chloride 0.9 % 500 mL via gravity infusion No No Sig: Infuse 1,300 mg over 1 hours into the vein once every eight weeks. When complete, flush bag with 20 mL NS to flush tubing. methylPREDNISolone Na Suc (PF) (solu-MEDROL) 40 mg in sodium chloride 0.9 % 4 mL injection No No Sig: Inject 40 mg over 3-5 minutes into the vein via push once every eight weeks. Administer 30 minutes prior to infusion methylPREDNISolone Na Suc, PF, (SOLU-MEDROL) 125 mg/2 mL injection No No Sig: Inject 2 mLs (125 mg) over 3-5 minutes into the vein via push as needed (infusion reaction). For RN use only. Reconstitute vial. Draw up methylPREDNISolone in a syringe and administer. Discard remainder of vial. sodium chloride 0.9% infusion No No Sig: Infuse 500 mLs into the vein as needed for other (infusion reaction). In case of mild reaction, administer via gravity at 20 mL/hr to keep vein open. In case of severe reaction, administer via gravity wide open on prime setting. sodium chloride, PF, 0.9% PF flush No No Sig: Inject 10 mLs into the vein as needed for other (infusion reaction). For RN use only as neededfor infusion reaction sodium chloride, PF, 0.9% PF flush No No Sig: Inject 10 mLs into the vein as needed for line flush. Flush IV before and after medication administration as directed and/or at least every 12 hours. Facility-Administered Medications: None Review of Systems The 10 point Review of Systems is negative other than noted in the HPI or here. Social History I have reviewed this patient's social history and updated it with pertinent information if needed. Works in [employer]. Alcohol use described as 4-5 drinks weekly. Daily marijuana use in the formof smoking. Denies other drug use. Social History Tobacco Use Smoking status: Former Current packs/day: 0.00 Types: Cigarettes Quit date: 05/01/2015 Years since quittin.1 Smokeless tobacco: Never Substance Use Topics Alcohol use: Not Currently Comment: stop drinking 06/2020 Drug use: Yes Types: Marijuana Physical Exam Vital Signs: Temp: 98.5 ??F (36.9 ??C) Temp src: Oral BP: (!) 138/92 Pulse: 104 Resp: 20 SpO2: 97 %O2 Device: None (Room air) Weight: 260 lbs 2.28 oz Constitutional: Awake, alert, no apparent distress. Eyes: Conjunctiva and pupils examined and normal. HEENT: Moist mucous membranes, normal dentition. Respiratory: Clear to auscultation bilaterally, no crackles or wheezing. Cardiovascular: tachycardic rate, regular rhythm, normal S1 and S2, and no murmur noted. GI: Soft, non-distended, tender to lower quadrants bilaterally, bowel sounds hyperactive. No rebound tenderness or guarding. Lymph/Hematologic: No anterior cervical or supraclavicular adenopathy. Skin: No rashes, no cyanosis, no edema. Musculoskeletal: No deformities noted. No erythema or tenderness. Moving all extremities. Neurologic: No focal deficits noted. Speech is clear. Coordination and strength grossly normal. Psychiatric: Appropriate affect. Medical Decision Making 75 MINUTES SPENT BY ME on the date of service doing chart review, history, exam, documentation & further activities per the note. Data PAST 24 HR DATA REVIEWED Cosigned by Clemente Abebe DO at 06/13/2025 12:34 PM CDT Associated attestation - Clemente Abebe DO - 06/13/2025 12:34 PM CDT Physician Attestation I have reviewed and discussed with the advanced practice provider their history, physical and plan for Demetri Castillo. I did not participate in a shared visit; this is an advanced practice provideronly visit. Clemente Abebe DO Date of Service (when I saw the patient): I did not personally see this patient today. documented in this encounter Consult Notes * Eleuterio Celaya MD - 06/14/2025 10:38 AM CDT [facility] Infectious Disease Consultation Date of Admission: 06/13/2025 Date of Consult (When I saw the patient): 06/15/25 Assessment & Plan Demetri Castillo is a 34 year old male who was admitted on 06/13/2025. Impression: 1 34-year-old male with underlying Crohn's disease well-controlled, now with acute diarrhea, found to have Cryptosporidium and stool likely infectious diarrhea and colitis related to that 2 Crohn's disease with prior bowel involvement and surgeries, well-controlled more recently on Remicade REC 1 given acute onset and finding of Cryptosporidium probably the cause, usually a self-limited disease not requiring treatment but given his immunosuppression, relatively severe disease requiring hospitalization and confusion possibly created by the alternative diagnosis of inflammatory bowel flare definitely treat, often difficult to get the needed medication but pharmacy is located a supply of nitazoxanide which has been started continue course and follow clinically Eleuterio Celaya MD Reason for Consult Reason for consult: I was asked to evaluate this patient for cryptosporidiosis. Primary Care Physician Sushant Schreiber Chief Complaint Diarrhea and crampy abdominal pain History is obtained from the patient and medical records History of Present Illness Demetri Castillo is a 34 year old male who presents with acute onset of crampy abdominal pain and diarrhea including slight systemic symptoms as well. No obvious recent exposures although was [employer] may did not drink any well water or outdoor water. Known underlying Crohn's disease that required interventions previously and is on chronic Remicade which she continues to take. Has not had major complicating infection complications from this. Past Medical History I have reviewed this patient's medical history and updated it with pertinent information if needed. Past Medical History: Diagnosis Date Back injury Past Surgical History I have reviewed this patient's surgical history and updated it with pertinent information if needed. Past Surgical History: Procedure Laterality Date COLONOSCOPY N/A 09/29/2023 Procedure: COLONOSCOPY, WITH POLYPECTOMY AND BIOPSY; Surgeon: Paul Sanford MD; Location: [facility] OR GENITOURINARY SURGERY Prior to Admission Medications Prior to Admission Medications Prescriptions Last Dose Informant Patient Reported? Taking? EPINEPHrine (ANY BX GENERIC EQUIV) 0.3 MG/0.3ML injection 2-pack No Yes Sig: Inject 0.3 mLs (0.3 mg) into the muscle as needed for anaphylaxis (infusion reaction). Administer into the mid-thigh in case of severe anaphylaxis (wheezing, throat tightening, mouth swelling, difficulty breathing). May repeat dose one time in 5-15 minutes if symptoms persist. Emergency Supply Kit, PIV, No Yes Sig: Patient use for emergency only. Contents: 3 sodium chloride 0.9% flushes, 1 IV start kit, 1 microclave ext set 14, 1 each IV Cath 22 G/1 and 24G/3/4, 6 alcohol prep pads, 4 nitrile gloves (med). Call to reorder. acetaminophen (TYLENOL) 325 MG tablet Yes Yes Sig: Take 325-650 mg by mouth 3 times daily as needed for mild pain, fever or headaches acetaminophen (TYLENOL) 325 MG tablet No Yes Sig: Take 2 tablets (650 mg) by mouth once every eight weeks. Administer 30 minutes prior to infusion amphetamine-dextroamphetamine (ADDERALL XR) 20 MG 24 hr capsule Yes Yes Sig: Take 20 mg by mouth daily as needed. azaTHIOprine (IMURAN) 50 MG tablet More than a month No Yes Sig: Take 4 tablets (200 mg) by mouth daily. cetirizine (ZYRTEC) 10 MG tablet No Yes Sig: TAKE ONE PILL (10MG DAILY) FOR HIVES. IF NOT CONTROLLING YOUR HIVES, START TAKING ONE PILL TWICE DAILY (MORNING AND EVENING). diphenhydrAMINE (BENADRYL) 25 MG capsule No Yes Sig: Take 2 capsules (50 mg) by mouth once every eight weeks. Administer 30 minutes prior to infusion diphenhydrAMINE (BENADRYL) 50 MG/ML injection No Yes Sig: Inject 1 mL (50 mg) over 3-5 minutes into the vein via push as needed for other (infusion reaction). For RN use only. Draw up in a syringe and administer IV push. Discard remainder of vial. inFLIXimab-dyyb (INFLECTRA) 1,300 mg in sodium chloride 0.9 % 500 mL via gravity infusion 06/05/2025No Yes Sig: Infuse 1,300 mg over 1 hours into the vein once every eight weeks. When complete, flush bag with 20 mL NS to flush tubing. methylPREDNISolone Na Suc (PF) (solu-MEDROL) 40 mg in sodium chloride 0.9 % 4 mL injection No Yes Sig: Inject 40 mg over 3-5 minutes into the vein via push once every eight weeks. Administer 30 minutes prior to infusion methylPREDNISolone Na Suc, PF, (SOLU-MEDROL) 125 mg/2 mL injection No Yes Sig: Inject 2 mLs (125 mg) over 3-5 minutes into the vein via push as needed (infusion reaction). For RN use only. Reconstitute vial. Draw up methylPREDNISolone in a syringe and administer. Discard remainder of vial. sodium chloride 0.9% infusion No Yes Sig: Infuse 500 mLs into the vein as needed for other (infusion reaction). In case of mild reaction, administer via gravity at 20 mL/hr to keep vein open. In case of severe reaction, administer via gravity wide open on prime setting. sodium chloride, PF, 0.9% PF flush No Yes Sig: Inject 10 mLs into the vein as needed for other (infusion reaction). For RN use only as neededfor infusion reaction sodium chloride, PF, 0.9% PF flush No Yes Sig: Inject 10 mLs into the vein as needed for line flush. Flush IV before and after medication administration as directed and/or at least every 12 hours. Facility-Administered Medications: None Allergies Allergies Allergen Reactions Oxycodone Nausea and Vomiting Hydrocodone-Acetaminophen Nausea and Vomiting Immunization History Immunization History Administered Date(s) Administered COVID-19 Monovalent 18+ (Moderna) 07/02/2021, 07/30/2021 Social History I have reviewed this patient's social history and updated it with pertinent information if needed. Demetri Castillo reports that he quit smoking about 10 years ago. His smoking use included cigarettes. He has never used smokeless tobacco. He reports that he does not currently use alcohol. He reports current drug use. Drug: Marijuana. Family History I have reviewed this patient's family history and updated it with pertinent information if needed. Family History Problem Relation Age of Onset Family History Negative Other Review of Systems The 10 point Review of Systems is negative Physical Exam Temp: 99.8 ??F (37.7 ??C) Temp src: Oral BP: (!) 156/98 Pulse: 82 Resp: 16 SpO2: 100 % O2 Device: None (Room air) Vital Signs with Ranges Temp: [99.1 ??F (37.3 ??C)-99.8 ??F (37.7 ??C)] 99.8 ??F (37.7 ??C) Pulse: [82-86] 82 Resp: [16-18] 16 BP: (149-164)/(69-98) 156/98 SpO2: [95 %-100 %] 100 % 258 lbs 2.54 oz Body mass index is 37.04 kg/m??. GENERAL APPEARANCE: awake not toxic or ill EYES: Eyes grossly normal to inspection NECK: no adenopathy RESP: lungs clear CV: regular rates and rhythm LYMPHATICS: normal ant/post cervical and supraclavicular nodes ABDOMEN: soft, Mild tenderness MS: extremities normal SKIN: no suspicious lesions or rashes Data All laboratory and imaging data in the past 24 hours reviewed No results for input(s): CULT in the last 168 hours. No lab results found. Invalid input(s): UC All cultures: No results for input(s): CULTURE in the last 168 hours. Blood culture: No results found for this or any previous visit. Urine culture: No results found for this or any previous visit. * Levi Narayanan MD - 06/13/2025 12:39 PM CDT Images from the original note were not included. Gastroenterology Consultation Consulting Physician Clemente Abebe DO Reason For Consultation Possible Crohn's flare Chief Complaint Demetri Castillo came to the hospital for evaluation of diarrhea and abdominal pain History of Present Illness Demetri Castillo is a pleasant 34 year old male who was diagnosed with ileocolonic Crohn's disease in 2019. He follows with the cardio tech at the [facility]. He has penetrating disease. He has not had any perianal disease. History of sigmoidectomy, partial ileocecectomy, distalsmall bowel resection. All these were done at the same time at the [facility] in about 2020. He had later takedown of ostomy. He has had an abdominal surgery for adhesions. He had abdominal wall surgery for 3 incisional hernias. Last follow-up in IBD clinic August 30, 2024. Note was reviewed. At that time he was on [id number] mg/kg every 8 weeks. Dose was increased in January 2024 for arthritis symptoms. He was also on azathioprine 200 mg daily. He was thought to be in remission at that time. He also has peripheral axial spondyloarthritis, pericarditis, pericardial effusion, previous CMV viremia. He presented to the ER with severe fatigue, dehydration, and frequent diarrhea since June 11, 2025.He has had abdominal pain and tenderness. He has been having up to 20-30 episodes of diarrhea per day. He has had incontinence. No hematochezia. He has had fatigue and malaise. He has had poor appetite with nausea. No vomiting. He has had right lower quadrant abdominal discomfort that he describes as cramping. He has not had any recent antibiotics. About 3 months ago his azathioprine was not refilled by the pharmacy resulting in a lapse of 3 months without the medication. He has had difficulty obtaining the medication through his new pharmacy. Despite this he reported feeling well until the onset of symptoms 2 days ago. His last Inflectra infusion was June 06. Past History Past Medical History: Diagnosis Date peripheral axial spondyloarthritis Pericarditis pericardial effusion previous CMV viremia. Resection of sigmoid colon, ileocecectomy, distal small bowel resection all done at the [facility] around 2020 at the same time. Bowel obstruction requiring repeat surgery Ostomy reversal Infected wisdom teeth removed Incisional hernia x 3 repaired Back surgery with follow-up back surgery Family History Social History Family History Problem Relation Age of Onset Family History Negative Other Tobacco: quit 2014 Alcohol: quit 2019 Recreational Drugs: None Medications (Not in a hospital admission) Allergies Allergies Allergen Reactions Oxycodone Nausea and Vomiting Hydrocodone-Acetaminophen Nausea and Vomiting Review of Systems A comprehensive review of systems was performed and was otherwise noncontributory. Objective Vitals Blood pressure (!) 159/98, pulse 77, temperature 98.5 ??F (36.9 ??C), temperature source Oral, resp. rate 20, height 1.803 m (5' 11), weight 118 kg (260 lb 2.3 oz), SpO2 97%. Physical Exam GENERAL: alert and oriented, well nourished in no apparent distress SKIN: warm and dry, no rashes HEENT: atraumatic, anicteric, moist mucous membranes, neck soft/supple PULMONARY: normal resp effort, breath sounds clear to auscultation bilaterally CARDIOVASCULAR: normal rate and rhythm, no murmurs, no edema ABDOMEN: right sided tenderness, no distention, bowel sounds normal NEUROLOGICAL: appropriate mental status, grossly intact PSYCHIATRIC: normal mood, affect and insight Laboratory Electrolytes Recent Labs Lab 06/13/25 0939 NA 136 POTASSIUM 3.6 CHLORIDE 98 CO2 24 GLC 102* CR 0.99 BUN 15.0 Hematology Recent Labs Lab 06/13/25 0939 HGB 17.6 MCV 90 WBC 15.2* PLT 208 LFTs & Lipase Recent Labs Lab 06/13/25 0939 AST 56* ALT 91* ALKPHOS 139 BILITOTAL 0.5 LIPASE 24 Imaging Studies EXAM: CT ABDOMEN PELVIS W CONTRAST LOCATION: [facility] DATE: 06/13/2025 INDICATION: Diffuse pain, diarrhea, Crohn's. COMPARISON: 11/21/2023. TECHNIQUE: CT scan of the abdomen and pelvis was performed following injection of IV contrast. Multiplanar reformats were obtained. Dose reduction techniques were used. CONTRAST: 100 mL Isovue 370 FINDINGS: LOWER CHEST: Normal. HEPATOBILIARY: Hepatic steatosis. No acute liver or gallbladder abnormality. PANCREAS: Normal. SPLEEN: Normal. ADRENAL GLANDS: Normal. KIDNEYS/BLADDER: No hydronephrosis or obstructing stone. No acute renal or bladder abnormality. BOWEL: No bowel obstruction. Stable postoperative changes at the ileocecal junction and colorectal regions. New finding of mild wall thickening at the mid transverse colon extending distally, for example series 3 image 83, and mildly involving the descending colon. Remainder of the bowel shows no acute inflammation. No abscess or free air. LYMPH NODES: There are several mildly more prominent mesenteric lymph nodes. A grouping of these suggested on series 3 image 105. VASCULATURE: Normal. PELVIC ORGANS: No acute pelvic abnormality. MUSCULOSKELETAL: Mild degenerative changes of the spine. Otherwise unremarkable. IMPRESSION: 1. New finding of mild wall thickening involving the distal transverse colon extending to the descending colon. This could represent a distal colitis. Given the history this could be an active mild Crohn's colitis. No bowel obstruction, no abscess or fistula identified. Infectious colitis remains in the differential. 2. A few larger mesenteric lymph nodes are noted compared to 11/21/2023. I have reviewed the current diagnostic and laboratory tests. Impression and Plan These with sudden onset of abdominal pain and diarrhea. CRP is elevated at 21.71. White count is mildly elevated. Platelet count is normal. Stool for enteric pathogens and C. difficile have already been ordered and are pending. CMV possible. Not been taking his azathioprine over the last 3 months. He has been getting Inflectra. Last dose was June 06. I will add fecal calprotectin for monitoring purposes. Start Solu-Medrol 60 mg IV x 1 followed by 20 mg 3 times daily if infectious stool studies are negative. Will treat infectious etiologies if they are positive. If he is not improving then perform colonoscopy or flexible sigmoidoscopy to look at disease activity and biopsy for CMV. If this is a flare in his IBD and he response to steroids then azathioprine as well as a steroid taper will need to be ordered as an outpatient. He is followed with the [facility] gastroenterology department. 62 minutes of total time was spent providing patient care including patient evaluation, reviewing documentation/test results, and customs and border protection officer. Levi Narayanan MD Thank you for the opportunity to participate in the care of this patient. Please feel free to call me with any questions or concerns. Phone number . documented in this encounter ED Notes * Khadijah Jiang RN - 06/13/2025 11:02 AM CDT [facility] ED Nurse Handoff Report ED Chief complaint: Nausea, Vomiting, & Diarrhea . ED Diagnosis: Final diagnoses: None Allergies: Allergies Allergen Reactions Oxycodone Nausea and Vomiting Hydrocodone-Acetaminophen Nausea and Vomiting Code Status: Full Code Activity level - Baseline/Home: independent. Activity Level - Current: independent. Lift room needed: No. Bariatric: No Gyroscope Repairer Needed: No Isolation: No. Infection: Not Applicable. Respiratory status: Room air Vital Signs (within 30 minutes): Vitals: 06/13/25 0945 06/13/25 1000 06/13/25 1020 06/13/25 1030 BP: (!) 138/92 Pulse: Resp: Temp: TempSrc: SpO2: 97% 98% 96% 97% Weight: Height: Cardiac Rhythm: , Pain level: Patient confused: No. Patient Falls Risk: patient and family education. Elimination Status: Has voided Patient Report - Initial Complaint: N/V/D. Focused Assessment: Pt is a 34-year-old male with a history of Crohn's disease who presents with severe fatigue, dehydration, and frequent diarrhea since June 11, 2025, along with associated abdominal pain and tenderness. Demetri has been taking Remicade (generic) and azathioprine for Crohn's disease. Approximately 2 months ago, azathioprine was not refilled due to pharmacy issues, resulting in a lapse of nearly 2 months without the medication. Despite this, he reported feeling well until the recent onset of symptoms. On June 11, 2025, Demetri began feeling very tired and drained, with no diarrhea that night. On June 12, 2025, he woke up feeling extremely fatigued, dehydrated, and not hungry. That night, he experienced frequent episodes of watery diarrhea, waking up multiple times to use the bathroom. On June 13, 2025, he continued to feel dehydrated, had poor appetite, and persistent diarrhea. He noted abdominal pain and tenderness, unsure if it was related to prior hernia mesh or musclecramping. Demetri denied significant fevers or chills, though he reported mild symptoms on June 11, 2025. He reported no recent changes in other medications or diet. Abnormal Results: Labs Ordered and Resulted from Time of ED Arrival to Time of ED Departure COMPREHENSIVE METABOLIC PANEL (LIMITED OCCURRENCES) - Abnormal Result Value Sodium 136 Potassium 3.6 Carbon Dioxide (CO2) 24 Anion Gap 14 Urea Nitrogen 15.0 Creatinine 0.99 GFR Estimate >90 Calcium 8.8 Chloride 98 Glucose 102 (*) Alkaline Phosphatase 139 AST 56 (*) ALT 91 (*) Protein Total 7.8 Albumin 4.3 Bilirubin Total 0.5 CRP INFLAMMATION - Abnormal CRP Inflammation 21.71 (*) CBC WITH PLATELETS AND DIFFERENTIAL - Abnormal WBC Count 15.2 (*) RBC Count 5.40 Hemoglobin 17.6 Hematocrit 48.5 MCV 90 MCH 32.6 MCHC 36.3 RDW 12.2 Platelet Count 208 RBC AND PLATELET MORPHOLOGY - Abnormal RBC Morphology Confirmed RBC Indices Platelet Assessment Value: Automated Count Confirmed. Platelet morphology is normal. Reactive Lymphocytes Present (*) MANUAL DIFFERENTIAL - Abnormal % Neutrophils 72 % Lymphocytes 13 % Monocytes 11 % Eosinophils 3 % Basophils 1 Absolute Neutrophils 10.9 (*) Absolute Lymphocytes 2.0 Absolute Monocytes 1.7 (*) Absolute Eosinophils 0.5 Absolute Basophils 0.2 LIPASE - Normal Lipase 24 C. DIFFICILE TOXIN B PCR WITH REFLEX TO C. DIFFICILE EIA FOCUSED ENTERIC PATHOGEN PANEL BY PCR CT Abdomen Pelvis w Contrast Final Result IMPRESSION: 1. New finding of mild wall thickening involving the distal transverse colon extending to the descending colon. This could represent a distal colitis. Given the history this could be an active mild Crohn's colitis. No bowel obstruction, no abscess or fistula identified. Infectious colitis remains in the differential. 2. A few larger mesenteric lymph nodes are noted compared to 11/21/2023. Treatments provided: see MAR Family Comments: N/A OBS brochure/video discussed/provided to patient: N/A ED Medications: Medications sodium chloride 0.9 % bag for CT scan flush (65 mLs As instructed $Given 06/13/25 1002) sodium chloride 0.9% BOLUS 1,000 mL (1,000 mLs Intravenous $New Bag 06/13/25 0940) iopamidol (ISOVUE-370) solution 500 mL (100 mLs Intravenous $Given 06/13/25 1002) Drips infusing: No For the majority of the shift this patient was Green. Interventions performed were N/A. Sepsis treatment initiated: No Cares/treatment/interventions/medications to be completed following ED care: Stool sample ED Nurse Name: Shweta Andrew RN 11:02 AM RECEIVING UNIT ED HANDOFF REVIEW Above ED Nurse Handoff Report was reviewed: Yes Reviewed by: Khadijah Jiang RN on June 13, 2025 at 2:39 PM Mitch Patel called the ED to inform them the note was read: Yes * Clemente Mensah MD - 06/13/2025 9:27 AM CDT Patient consent obtained for Ambient scribe use. History Chief Complaint: Abdominal pain, diarrhea HPI Demetri Castillo is a 34-year-old male with a history of Crohn's disease who presents with severe fatigue, dehydration, and frequent diarrhea since June 11, 2025, along with associated abdominal painand tenderness. Demetri has been taking Remicade (generic) and azathioprine for Crohn's disease. Approximately 2 months ago, azathioprine was not refilled due to pharmacy issues, resulting in a lapse of nearly 2 months without the medication. Despite this, he reported feeling well until the recent onset of symptoms. On June 11, 2025, Demetri began feeling very tired and drained, with no diarrhea thatnight. On June 12, 2025, he woke up feeling extremely fatigued, dehydrated, and not hungry. That night, he experienced frequent episodes of watery diarrhea, waking up multiple times to use the bathroom. On June 13, 2025, he continued to feel dehydrated, had poor appetite, and persistent diarrhea. He noted abdominal pain and tenderness, unsure if it was related to prior hernia mesh or muscle cramping. Demetri denied significant fevers or chills, though he reported mild symptoms on June 11, 2025. He reported no recent changes in other medications or diet. Independent Historian: None Review of External Notes: Reviewed GI notes from 09/09/24 for review of Crohns and GI management history ROS: Review of Systems Allergies: Oxycodone Hydrocodone-Acetaminophen Medications: acetaminophen (TYLENOL) 325 MG tablet acetaminophen (TYLENOL) 325 MG tablet azaTHIOprine (IMURAN) 50 MG tablet cetirizine (ZYRTEC) 10 MG tablet diphenhydrAMINE (BENADRYL) 25 MG capsule diphenhydrAMINE (BENADRYL) 50 MG/ML injection Emergency Supply Kit, PIV, EPINEPHrine (ANY BX GENERIC EQUIV) 0.3 MG/0.3ML injection 2-pack inFLIXimab-dyyb (INFLECTRA) 1,300 mg in sodium chloride 0.9 % 500 mL via gravity infusion methylPREDNISolone Na Suc (PF) (solu-MEDROL) 40 mg in sodium chloride 0.9 % 4 mL injection methylPREDNISolone Na Suc, PF, (SOLU-MEDROL) 125 mg/2 mL injection sodium chloride 0.9% infusion sodium chloride, PF, 0.9% PF flush sodium chloride, PF, 0.9% PF flush Past History: Past Medical History: Diagnosis Date Back injury Physical Exam Patient Vitals for the past 24 hrs: Vitals: 06/13/25 0855 BP: (!) 142/108 Pulse: 104 Resp: 20 Temp: 98.5 ??F (36.9 ??C) TempSrc: Oral SpO2: 99% Weight: 118 kg (260 lb 2.3 oz) Height: 1.803 m (5' 11) Physical Exam Constitutional: Alert, attentive HENT: Nose: Nose normal. Mouth/Throat: Oropharynx is clear, mucous membranes are moist Eyes: EOM are normal. CV: regular rate and rhythm; no murmurs, rubs or gallups Chest: Effort normal and breath sounds normal. GI: There is mild diffuse tenderness. No distension. Normal bowel sounds MSK: Normal range of motion. Neurological: Alert, attentive Skin: Skin is warm and dry. Emergency Department Course Results for orders placed or performed during the hospital encounter of 07/29/25 CT Abdomen Pelvis w Contrast Status: None Narrative EXAM: CT ABDOMEN PELVIS W CONTRAST LOCATION: [facility] DATE: 06/13/2025 INDICATION: Diffuse pain, diarrhea, Crohn's. COMPARISON: 11/21/2023. TECHNIQUE: CT scan of the abdomen and pelvis was performed following injection of IV contrast. Multiplanar reformats were obtained. Dose reduction techniques were used. CONTRAST: 100 mL Isovue 370 FINDINGS: LOWER CHEST: Normal. HEPATOBILIARY: Hepatic steatosis. No acute liver or gallbladder abnormality. PANCREAS: Normal. SPLEEN: Normal. ADRENAL GLANDS: Normal. KIDNEYS/BLADDER: No hydronephrosis or obstructing stone. No acute renal or bladder abnormality. BOWEL: No bowel obstruction. Stable postoperative changes at the ileocecal junction and colorectal regions. New finding of mild wall thickening at the mid transverse colon extending distally, for example series 3 image 83, and mildly involving the descending colon. Remainder of the bowel shows no acute inflammation. No abscess or free air. LYMPH NODES: There are several mildly more prominent mesenteric lymph nodes. A grouping of these suggested on series 3 image 105. VASCULATURE: Normal. PELVIC ORGANS: No acute pelvic abnormality. MUSCULOSKELETAL: Mild degenerative changes of the spine. Otherwise unremarkable. Impression IMPRESSION: 1. New finding of mild wall thickening involving the distal transverse colon extending to the descending colon. This could represent a distal colitis. Given the history this could be an active mild Crohn's colitis. No bowel obstruction, no abscess or fistula identified. Infectious colitis remains in the differential. 2. A few larger mesenteric lymph nodes are noted compared to 11/21/2023. Comprehensive Metabolic Panel (Limited Occurrences) Status: Abnormal Result Value Ref Range Sodium 136 135 - 145 mmol/L Potassium 3.6 3.4 - 5.3 mmol/L Carbon Dioxide (CO2) 24 22 - 29 mmol/L Anion Gap 14 7 - 15 mmol/L Urea Nitrogen 15.0 6.0 - 20.0 mg/dL Creatinine 0.99 0.67 - 1.17 mg/dL GFR Estimate >90 >60 mL/min/1.73m2 Calcium 8.8 8.8 - 10.4 mg/dL Chloride 98 98 - 107 mmol/L Glucose 102 (H) 70 - 99 mg/dL Alkaline Phosphatase 139 40 - 150 U/L AST 56 (H) 0 - 45 U/L ALT 91 (H) 0 - 70 U/L Protein Total 7.8 6.4 - 8.3 g/dL Albumin 4.3 3.5 - 5.2 g/dL Bilirubin Total 0.5 <=1.2 mg/dL Lipase Status: Normal Result Value Ref Range Lipase 24 13 - 60 U/L CRP inflammation Status: Abnormal Result Value Ref Range CRP Inflammation 21.71 (H) <5.00 mg/L CBC with platelets and differential Status: Abnormal Result Value Ref Range WBC Count 15.2 (H) 4.0 - 11.0 10e3/uL RBC Count 5.40 4.40 - 5.90 10e6/uL Hemoglobin 17.6 13.3 - 17.7 g/dL Hematocrit 48.5 40.0 - 53.0 % MCV 90 78 - 100 fL MCH 32.6 26.5 - 33.0 pg MCHC 36.3 31.5 - 36.5 g/dL RDW 12.2 10.0 - 15.0 % Platelet Count 208 150 - 450 10e3/uL RBC and Platelet Morphology Status: Abnormal Result Value Ref Range RBC Morphology Confirmed RBC Indices Platelet Assessment Automated Count Confirmed. Platelet morphology is normal. Automated Count Confirmed. Platelet morphology is normal. Reactive Lymphocytes Present (A) None Seen Manual Differential Status: Abnormal Result Value Ref Range % Neutrophils 72 % % Lymphocytes 13 % % Monocytes 11 % % Eosinophils 3 % % Basophils 1 % Absolute Neutrophils 10.9 (H) 1.6 - 8.3 10e3/uL Absolute Lymphocytes 2.0 0.8 - 5.3 10e3/uL Absolute Monocytes 1.7 (H) 0.0 - 1.3 10e3/uL Absolute Eosinophils 0.5 0.0 - 0.7 10e3/uL Absolute Basophils 0.2 0.0 - 0.2 10e3/uL CBC with Platelets and Differential (Limited Occurrences) Status: Abnormal Narrative The following orders were created for panel order CBC with Platelets and Differential (Limited Occurrences). Procedure Abnormality Status --------- ------ CBC with platelets and ...[[id number]] Abnormal Final result RBC and Platelet Morpho...[[id number]] Abnormal Final result Manual Differential[[id number]] Abnormal Final result Please view results for these tests on the individual orders. Emergency Department Course & Assessments: Consultations/Discussion of Management or Tests: I consulted with [facility] regarding patient's management I consulted with the hospitalist service who will admit the patient Disposition: The patient was admitted to the hospital under the care of the hospitalist service. Impression & Plan Medical Decision Making: This a pleasant 34-year-old male with history of Crohn's disease who presents for evaluation of abdominal pain and diarrhea consistent with Crohn's flare. Given profuse diarrhea and pain, labs and CTabdomen pelvis were performed. Labs showed mild leukocytosis and CRP elevation, with slight elevation in AST/ALT. CT shows colitis as per above. Patient has had poor p.o. intake so is not a good candidate for attempted outpatient management. Therefore, the patient be admitted inpatient status and after C. difficile testing is received, the patient will be started on IV steroid medications. Plan additionally GI consultation continue supportive cares. Diagnosis: Visit Diagnosis, Associated Orders, and Comments ICD-10-CM 1. Crohn's disease of colon with complication (H) K50.119 Clemente Mensah MD 06/13/25 1227 * Ragini Hodge RN - 06/13/2025 8:54 AM CDT Patient present to ED with possible crohn's flare up. Reports 1 week of diarrhea and abdominal pain. ABCs intact documented in this encounter Miscellaneous Notes * Plan of Care - Aaliyah Lopez RN - 06/15/2025 2:12 AM CDT Goal Outcome Evaluation: Plan of Care Reviewed With: patient Overall Patient Progress: improving [id number]: VS: Afebrile. Hypertensive. Other VSS. Respiratory: WDL; lung sounds clear. GI: Denies nausea. Frequent, loose stools. Normoactive bowel sounds. Passing gas. Tolerating regular diet. : Voiding. Activity: Independent. Pain: Rating pain 1-4. PRN Tylenol x1 given. Lines: No PIV; okay per provider. Plan: Pain management. Nausea management. Monitor vital signs. Oral antibiotics. Problem: Adult Inpatient Plan of Care Goal: Plan of Care Review Description: The Plan of Care Review/Shift note should be completed every shift. The Outcome Evaluation is a brief statement about your assessment that the patient is improving, declining, or no change. This information will be displayed automatically on your shift note. Outcome: Progressing Flowsheets (Taken 06/15/2025 0212) Plan of Care Reviewed With: patient Overall Patient Progress: improving Goal: Patient-Specific Goal (Individualized) Description: You can add care plan individualizations to a care plan. Examples of Individualizationmight be: Parent requests to be called daily at 9am for status, I have a hard time hearing out of my right ear, or Do not touch me to wake me up as it startles me. Outcome: Progressing Goal: Absence of Hospital-Acquired Illness or Injury Outcome: Progressing Intervention: Identify and Manage Fall Risk Recent Flowsheet Documentation Taken 06/15/2025 0005 by Aaliyah Lopez RN Safety Promotion/Fall Prevention: assistive device/personal items within reach clutter free environment maintained lighting adjusted patient and family education nonskid shoes/slippers when out of bed room near nurse's station room organization consistent safety round/check completed treat underlying cause treat reversible contributory factors Intervention: Prevent Skin Injury Recent Flowsheet Documentation Taken 06/15/2025 0005 by Aaliyah Lopez RN Body Position: position changed independently Skin Protection: adhesive use limited tubing/devices free from skin contact Intervention: Prevent and Manage VTE (Venous Thromboembolism) Risk Recent Flowsheet Documentation Taken 06/15/2025 0005 by Aaliyah Lopez RN VTE Prevention/Management: patient refused intervention Intervention: Prevent Infection Recent Flowsheet Documentation Taken 06/15/2025 0005 by Aaliyah Lopez RN Infection Prevention: environmental surveillance performed equipment surfaces disinfected hand hygiene promoted personal protective equipment utilized single patient room provided rest/sleep promoted Goal: Optimal Comfort and Wellbeing Outcome: Progressing Intervention: Monitor Pain and Promote Comfort Recent Flowsheet Documentation Taken 06/15/2025 0005 by Aaliyah Lopez RN Pain Management Interventions: care clustered emotional support rest repositioned recreational therapy Goal: Readiness for Transition of Care Outcome: Progressing Problem: Pain Acute Goal: Optimal Pain Control and Function Outcome: Progressing Intervention: Develop Pain Management Plan Recent Flowsheet Documentation Taken 06/15/2025 0005 by Aaliyah Lopez RN Pain Management Interventions: care clustered emotional support rest repositioned recreational therapy Intervention: Prevent or Manage Pain Recent Flowsheet Documentation Taken 06/15/2025 0005 by Aaliyah Lopez RN Sensory Stimulation Regulation: care clustered lighting decreased quiet environment promoted Sleep/Rest Enhancement: awakenings minimized comfort measures consistent schedule promoted regular sleep/rest pattern promoted room darkened relaxation techniques promoted Medication Review/Management: medications reviewed high-risk medications identified * Plan of Care - Loretta Riojas RN - 06/14/2025 11:35 PM CDT Goal Outcome Evaluation: Plan of Care Reviewed With: patient The patient remains alert and oriented x4 and call light appropriate. Ambulating independent in room. Reported afew loose BM for me this shift. PRN zofran given x1 for nausea and simethicone for cramps. PIV patent and intact, SL. Vitally stable on room air. Regular diet. Problem: Adult Inpatient Plan of Care Goal: Plan of Care Review Description: The Plan of Care Review/Shift note should be completed every shift. The Outcome Evaluation is a brief statement about your assessment that the patient is improving, declining, or no change. This information will be displayed automatically on your shift note. Outcome: Progressing Flowsheets (Taken 06/14/20251814) Plan of Care Reviewed With: patient Goal: Patient-Specific Goal (Individualized) Description: You can add care plan individualizations to a care plan. Examples of Individualizationmight be: Parent requests to be called daily at 9am for status, I have a hard time hearing out of my right ear, or Do not touch me to wake me up as it startles me. Outcome: Progressing Goal: Absence of Hospital-Acquired Illness or Injury Outcome: Progressing Intervention: Identify and Manage Fall Risk Recent Flowsheet Documentation Taken 06/14/2025 1606 by Loretta Riojas RN Safety Promotion/Fall Prevention: clutter free environment maintained Intervention: Prevent Skin Injury Recent Flowsheet Documentation Taken 06/14/2025 1606 by Loretta Riojas RN Body Position: position changed independently Intervention: Prevent and Manage VTE (Venous Thromboembolism) Risk Recent Flowsheet Documentation Taken 06/14/2025 1606 by Loretta Riojas RN VTE Prevention/Management: SCDs off (sequential compression devices) Intervention: Prevent Infection Recent Flowsheet Documentation Taken 06/14/2025 1606 by Loretta Riojas RN Infection Prevention: hand hygiene promoted Goal: Optimal Comfort and Wellbeing Outcome: Progressing Goal: Readiness for Transition of Care Outcome: Progressing Problem: Pain Acute Goal: Optimal Pain Control and Function Outcome: Progressing Intervention: Prevent or Manage Pain Recent Flowsheet Documentation Taken 06/14/2025 1606 by Loretta Riojas RN Medication Review/Management: medications reviewed * Plan of Care - Lilia Swain RN - 06/14/2025 3:25 PM CDT Goal Outcome Evaluation: Plan of Care Reviewed With: patient Overall Patient Progress: improvingOverall Patient Progress: improving Afebrile. Received Tylenol times one for c/o lower back pain with relief. Abdomen tender in RUQ. Passing flatus. No BM. Voiding. Tolerating regular diet. Showered. Plan: Oral antibiotics. Pain control. Encourage fluids and ambulation. GI and ID consulting. Problem: Adult Inpatient Plan of Care Goal: Plan of Care Review Description: The Plan of Care Review/Shift note should be completed every shift. The Outcome Evaluation is a brief statement about your assessment that the patient is improving, declining, or no change. This information will be displayed automatically on your shift note. Outcome: Progressing Flowsheets (Taken 06/14/2025 1525) Plan of Care Reviewed With: patient Overall Patient Progress: improving Goal: Patient-Specific Goal (Individualized) Description: You can add care plan individualizations to a care plan. Examples of Individualizationmight be: Parent requests to be called daily at 9am for status, I have a hard time hearing out of my right ear, or Do not touch me to wake me up as it startles me. Outcome: Progressing Goal: Absence of Hospital-Acquired Illness or Injury Outcome: Progressing Intervention: Identify and Manage Fall Risk Recent Flowsheet Documentation Taken 06/14/2025 0939 by Lilia Swain RN Safety Promotion/Fall Prevention: clutter free environment maintained safety round/check completed Intervention: Prevent Skin Injury Recent Flowsheet Documentation Taken 06/14/2025 09 by Lilia Swain RN Body Position: position changed independently Skin Protection: tubing/devices free from skin contact Intervention: Prevent and Manage VTE (Venous Thromboembolism) Risk Recent Flowsheet Documentation Taken 06/14/2025 09 by Lilia Swain RN VTE Prevention/Management: SCDs off (sequential compression devices) Intervention: Prevent Infection Recent Flowsheet Documentation Taken 06/14/2025 09 by Lilia Swain RN Infection Prevention: hand hygiene promoted rest/sleep promoted single patient room provided Goal: Optimal Comfort and Wellbeing Outcome: Progressing Intervention: Monitor Pain and Promote Comfort Recent Flowsheet Documentation Taken 06/14/2025 1212 by Lilia Swain RN Pain Management Interventions: declines Taken 06/14/2025 09 by Lilia Swain RN Pain Management Interventions: medication (see MAR) Goal: Readiness for Transition of Care Outcome: Progressing Problem: Pain Acute Goal: Optimal Pain Control and Function Outcome: Progressing Intervention: Develop Pain Management Plan Recent Flowsheet Documentation Taken 06/14/2025 1212 by Lilia Swain RN Pain Management Interventions: declines Taken 06/14/2025 09 by Lilia Swain RN Pain Management Interventions: medication (see MAR) Intervention: Prevent or Manage Pain Recent Flowsheet Documentation Taken 06/14/2025 09 by Lilia Swain RN Sensory Stimulation Regulation: care clustered Sleep/Rest Enhancement: regular sleep/rest pattern promoted Bowel Elimination Promotion: adequate fluid intake promoted ambulation promoted privacy promoted Medication Review/Management: medications reviewed * Plan of Care - Aaliyah Lopez RN - 06/14/2025 3:59 AM CDT Goal Outcome Evaluation: Plan of Care Reviewed With: patient Overall Patient Progress: improving VS: Afebrile. Hypertensive. Other VSS. Respiratory: WDL; lung sounds clear. GI: Intermittent nausea; PRN Zofran x1 given. Frequent, loose stools. Hyperactive bowel sounds. Passing gas. Soft, tender abdomen. Tolerating regular diet. : Voiding. Activity: Independent. Pain: Rating pain 2-4. PRN Tylenol x1 given. Lines: R PIV infusing LR @ 100 mL/hr. Plan: IV fluids. Pain management. Nausea management. Monitor vital signs. Oral antibiotics. Problem: Adult Inpatient Plan of Care Goal: Plan of Care Review Description: The Plan of Care Review/Shift note should be completed every shift. The Outcome Evaluation is a brief statement about your assessment that the patient is improving, declining, or no change. This information will be displayed automatically on your shift note. Outcome: Progressing Flowsheets (Taken 06/14/2025 035) Plan of Care Reviewed With: patient Overall Patient Progress: improving Goal: Patient-Specific Goal (Individualized) Description: You can add care plan individualizations to a care plan. Examples of Individualizationmight be: Parent requests to be called daily at 9am for status, I have a hard time hearing out of my right ear, or Do not touch me to wake me up as it startles me. Outcome: Progressing Goal: Absence of Hospital-Acquired Illness or Injury Outcome: Progressing Intervention: Identify and Manage Fall Risk Recent Flowsheet Documentation Taken 06/13/20252136 by Aaliyah Lopez RN Safety Promotion/Fall Prevention: assistive device/personal items within reach clutter free environment maintained lighting adjusted patient and family education nonskid shoes/slippers when out of bed room near nurse's station room organization consistent safety round/check completed treat underlying cause treat reversible contributory factors Intervention: Prevent Skin Injury Recent Flowsheet Documentation Taken 06/13/20252136 by Aaliyah Lopez RN Body Position: position changed independently Skin Protection: adhesive use limited tubing/devices free from skin contact Intervention: Prevent and Manage VTE (Venous Thromboembolism) Risk Recent Flowsheet Documentation Taken 06/13/20252136 by Aaliyah Lopez RN VTE Prevention/Management: patient refused intervention Intervention: Prevent Infection Recent Flowsheet Documentation Taken 06/13/20252136 by Aaliyah Lopez RN Infection Prevention: environmental surveillance performed equipment surfaces disinfected hand hygiene promoted personal protective equipment utilized single patient room provided rest/sleep promoted Goal: Optimal Comfort and Wellbeing Outcome: Progressing Intervention: Monitor Pain and Promote Comfort Recent Flowsheet Documentation Taken 06/13/20252254 by Aaliyah Lopez chair and couch maker Interventions: medication (see MAR) care clustered distraction rest repositioned quiet environment facilitated Taken 06/13/20252136 by Aaliyah Lopez RN Pain Management Interventions: care clustered distraction emotional support quiet environment facilitated repositioned rest Goal: Readiness for Transition of Care Outcome: Progressing Problem: Pain Acute Goal: Optimal Pain Control and Function Outcome: Progressing Intervention: Develop Pain Management Plan Recent Flowsheet Documentation Taken 06/13/20252254 by Aaliyah Lopez RN Pain Management Interventions: medication (see MAR) care clustered distraction rest repositioned quiet environment facilitated Taken 06/13/20252136 by Aaliyah Lopez RN Pain Management Interventions: care clustered distraction emotional support quiet environment facilitated repositioned rest Intervention: Prevent or Manage Pain Recent Flowsheet Documentation Taken 06/13/20252136 by Aaliyah Lopez RN Sensory Stimulation Regulation: care clustered lighting decreased quiet environment promoted Sleep/Rest Enhancement: awakenings minimized comfort measures consistent schedule promoted regular sleep/rest pattern promoted room darkened relaxation techniques promoted Medication Review/Management: medications reviewed high-risk medications identified * Plan of Care - Shola Alonzo MD - 06/13/2025 8:15 PM CDT Enteric panel with Crytosporidium. Will start on niazoxanide + azithromycin. Jose Blakely MD ADDENDUM Nitazoxanide will have to be requested from other hospitals per pharmacy. Per [facility] only alternative is paromumycin which we don't carry either. * Plan of Care - Khadijah Jiang RN - 06/13/2025 6:54 PM CDT Goal Outcome Evaluation: Indep in room. Stool sent to lab. Patient insisted on regular diet. Tolerated clears well. Problem: Adult Inpatient Plan of Care Goal: Plan of Care Review Description: The Plan of Care Review/Shift note should be completed every shift. The Outcome Evaluation is a brief statement about your assessment that the patient is improving, declining, or no change. This information will be displayed automatically on your shift note. Outcome: Progressing Goal: Patient-Specific Goal (Individualized) Description: You can add care plan individualizations to a care plan. Examples of Individualizationmight be: Parent requests to be called daily at 9am for status, I have a hard time hearing out of my right ear, or Do not touch me to wake me up as it startles me. Outcome: Progressing Goal: Absence of Hospital-Acquired Illness or Injury Outcome: Progressing Goal: Optimal Comfort and Wellbeing Outcome: Progressing Goal: Readiness for Transition of Care Outcome: Progressing Intervention: Mutually Develop Transition Plan Recent Flowsheet Documentation Taken 06/13/2025 1800 by Khadijah Jiang RN Equipment Currently Used at Home: none * Pharmacy-Admission Medication History - Carmen Payne [facility] - 06/13/2025 11:52 AM CDT Pharmacist Admission Medication History Admission medication history is complete. The information provided in this note is only as accurateas the sources available at the time of the update. Information Source(s): Patient and CareEverywhere/SureScripts via in-person Pertinent Information: Pt has not taken Azathioprine for about 3 months due to difficulty of obtaining drug from [facility] pharmacy. Changes made to [facility] medication list: Added: Adderall Deleted: None Changed: None Allergies reviewed with patient and updates made in EHR: yes Medication History Completed By: Shayna Payne PharmD 06/13/2025 11:52 AM [facility] Med List Medication Sig Last Dose/Taking acetaminophen (TYLENOL) 325 MG tablet Take 2 tablets (650 mg) by mouth once every eight weeks. Administer 30 minutes prior to infusion Taking acetaminophen (TYLENOL) 325 MG tablet Take 325-650 mg by mouth 3 times daily as needed for mild pain, fever or headaches Taking As Needed amphetamine-dextroamphetamine (ADDERALL XR) 20 MG 24 hr capsule Take 20 mg by mouth daily as needed. Taking As Needed azaTHIOprine (IMURAN) 50 MG tablet Take 4 tablets (200 mg) by mouth daily. More than a month cetirizine (ZYRTEC) 10 MG tablet TAKE ONE PILL (10MG DAILY) FOR HIVES. IF NOT CONTROLLING YOUR HIVES, START TAKING ONE PILL TWICE DAILY (MORNING AND EVENING). Taking diphenhydrAMINE (BENADRYL) 25 MG capsule Take 2 capsules (50 mg) by mouth once every eight weeks. Administer 30 minutes prior to infusion Taking diphenhydrAMINE (BENADRYL) 50 MG/ML injection Inject 1 mL (50 mg) over 3-5 minutes into the vein via push as needed for other (infusion reaction). For RN use only. Draw up in a syringe and administerIV push. Discard remainder of vial. Taking As Needed Emergency Supply Kit, PIV, Patient use for emergency only. Contents: 3 sodium chloride 0.9% flushes, 1 IV start kit, 1 microclave ext set 14, 1 each IV Cath 22 G/1 and 24G/3/4, 6 alcohol prep pads, 4 nitrile gloves (med). Call to reorder. Taking As Needed EPINEPHrine (ANY BX GENERIC EQUIV) 0.3 MG/0.3ML injection 2-pack Inject 0.3 mLs (0.3 mg) into the muscle as needed for anaphylaxis (infusion reaction). Administer into the mid-thigh in case of severeanaphylaxis (wheezing, throat tightening, mouth swelling, difficulty breathing). May repeat dose one time in 5-15 minutes if symptoms persist. Taking As Needed inFLIXimab-dyyb (INFLECTRA) 1,300 mg in sodium chloride 0.9 % 500 mL via gravity infusion Infuse 1,300 mg over 1 hours into the vein once every eight weeks. When complete, flush bag with 20 mL NS to flush tubing. 06/05/2025 methylPREDNISolone Na Suc (PF) (solu-MEDROL) 40 mg in sodium chloride 0.9 % 4 mL injection Inject 40 mg over 3-5 minutes into the vein via push once every eight weeks. Administer 30 minutes prior to infusion Taking methylPREDNISolone Na Suc, PF, (SOLU-MEDROL) 125 mg/2 mL injection Inject 2 mLs (125 mg) over 3-5 minutes into the vein via push as needed (infusion reaction). For RN use only. Reconstitute vial. Draw up methylPREDNISolone in a syringe and administer. Discard remainder of vial. Taking As Needed sodium chloride 0.9% infusion Infuse 500 mLs into the vein as needed for other (infusion reaction).In case of mild reaction, administer via gravity at 20 mL/hr to keep vein open. In case of severe reaction, administer via gravity wide open on prime setting. Taking As Needed sodium chloride, PF, 0.9% PF flush Inject 10 mLs into the vein as needed for other (infusion reaction). For RN use only as needed for infusion reaction Taking As Needed sodium chloride, PF, 0.9% PF flush Inject 10 mLs into the vein as needed for line flush. Flush IV before and after medication administration as directed and/or at least every 12 hours. Taking As Needed documented in this encounter Plan of Treatment Not on file documented as of this encounter Procedures Procedure Name Priority Date/Time Associated Diagnosis Comments COMPREHENSIVE METABOLIC PANEL (LIMITED OCCURRENCES) Routine 06/14/2025 5:49 AM CDT CBC WITH PLATELETS Routine 06/14/2025 5: 49 AM CDT CALPROTECTIN FECES STAT 06/13/2025 4: 18 PM CDT FOCUSED ENTERIC PATHOGEN PANEL BY PCR STAT 06/13/2025 1:56 PM CDT C. DIFFICILE TOXIN B PCR WITH REFLEX TO C. DIFFICILE EIA STAT 06/13/2025 1:[address] ABDOMEN PELVIS W CONTRAST STAT 06/13/2025 10:11 AM CDT MANUAL DIFFERENTIAL STAT 06/13/2025 9 :39 AM CDT RBC AND PLATELET MORPHOLOGY STAT 06/13/2025 9:39 AM CDT CBC WITH PLATELETS AND DIFFERENTIAL STAT 06/13/2025 9:39 AM CDT CBC WITH PLATELETS AND DIFFERENTIAL (LIMITED OCCURRENCES) STAT 06/13/2025 9:39 AM CDT COMPREHENSIVE METABOLIC PANEL (LIMITED OCCURRENCES) STAT 06/13/2025 9:39 AM CDT LIPASE STAT 06/13/2025 9:39 AM CDT CRP INFLAMMATION STAT 06/13/2025 9:39 AM CDT documented in this encounter Results * (ABNORMAL) CBC with platelets (06/14/2025 5:49 AM CDT) WBC Count 12.4(H) 4.0 - 11.0 10e3/uL 06/14/2025 5:54 AM CDT [facility] RBC Count 4.86 4.40 - 5.90 10e6/uL 06/14/2025 5:54 AM CDT [facility] Hemoglobin 15.8 13.3 - 17.7 g/dL 06/14/2025 5:54 AM CDT [facility] Hematocrit 43.8 40.0 - 53.0 % 06/14/2025 5:54 AM CDT [facility] MCV 90 78 - 100 fL 06/14/2025 5:54 AM CDT [facility] MCH 32.5 26.5 - 33.0 pg 06/14/2025 5:54 AM CDT [facility] MCHC 36.1 31.5 - 36.5 g/dL 06/14/2025 5:54 AM CDT [facility] RDW 12.1 10.0 - 15.0 % 06/14/2025 5:54 AM CDT [facility] Platelet Count 169 150 - 450 10e3/uL 06/14/2025 5:54 AM CDT [facility] Blood STRUCTURE OF LEFT UPPER LIMB / Unknown Venipuncture / Unknown 06/14/2025 5:49 AM CDT 06/14/2025 5:52 AM CDT us Tiffanie Youssef PA-C LAB - BLOOD ORDERABLES Fin al Result [facility] [address] Lab (1st floor, no room number) [place] [address] * (ABNORMAL) Comprehensive Metabolic Panel (Limited Occurrences) (06/14/2025 5:49 AM CDT) Sodium 136 135 - 145 mmol/L 06/14/2025 6:11 AM CDT [facility] Potassium 3.8 3.4 - 5.3 mmol/L 06/14/2025 6:11 AM CDT LABORATORY Carbon Dioxide (CO2) 23 22 - 29 mmol/L 06/14/2025 6:11 AM CDT [facility] Anion Gap 11 7 - 15 mmol/L 06/14/2025 6:11 AM CDT [facility] Urea Nitrogen 11.8 6.0 - 20.0 mg/dL 06/14/2025 6:11 AM CDT LABORATORY Creatinine 0.85 0.67 - 1.17 mg/dL 06/14/2025 6:11 AM CDT [facility] GFR Estimate >90 >60 mL/min/1.7 3m2 06/14/2025 6:11 AM CDT [facility] Comment:eGFR calculated usin 2020 CKD-EPI equation. Calcium 8.4(L) 8.8 - 10.4 mg/dL 06/14/2025 6:11 AM CDT [facility] Chloride 102 98 - 107 mmol/L 06/14/2025 6:11 AM CDT [facility] Glucose 95 70 - 99 mg/dL 06/14/2025 6:11 AM CDT [facility] Alkaline Phosphatase 117 40 - 150 U/L 06/14/2025 6:11 AM CDT [facility] AST 48(H) 0 - 45 U/L 06/14/2025 6:11 AM CDT [facility] ALT 66 0 - 70 U/L 06/14/2025 6:11 AM CDT [facility] Protein Total 6.6 6.4 - 8.3 g/dL 06/14/2025 6:11 AM CDT [facility] Albumin 3.8 3.5 - 5.2 g/dL 06/14/2025 6:11 AM CDT [facility] Bilirubin Total 0.6 <=1.2 mg/dL 06/14/2025 6:11 AM CDT [facility] Blood STRUCTURE OF LEFT UPPER LIMB / Unknown Venipuncture / Unknown 06/14/2025 5:49 AM CDT 06/14/2025 5:52 AM CDT us Tiffanie Youssef PA-C LAB - BLOOD ORDERABLES Fin al Result [facility] Acute Care Lab [address] Lab (1st floor, no room number) [place] [address], [facility] * (ABNORMAL) Calprotectin Feces (06/13/2025 4:18 PM CDT) Calprotectin Feces 65.9(H) 0.0 - 49.9 mg/kg 06/14/2025 2:12 PM CDT [facility]END O Comment:Borderline result, p lease re-evaluate and recollect a new sample in 4-6 weeks. Stool RECTAL CONTENTS / Unknown Non-blood Collection / Unknown 06/13/2025 4:18 PM CDT 06/13/2025 4:24 PM CDT us Levi Narayanan MD LAB - STOOLS ORDERABLES Final Result [facility]PROT/ENDO [facility]/Prot/Endo [address] [facility], [address] [place] [address] * (ABNORMAL) Focused Enteric Pathogen Panel by PCR (06/13/2025 1:56 PM CDT) Campylobacter species Negative Negative 06/13/2025 7:59 PM CDT [facility] Salmonella species Negative Negative 2024 7:59 PM CDT [facility] Vibrio species Negative Negative 06/13/2025 7:59 PM CDT [facility] Yersinia enterocolitica Negative Negative 06/13/2025 7:59 PM CDT [facility] Shiga-like toxin-producing E. coli (STEC) Negative Negative 06/13/2025 7:59 PM CDT [facility] Shigella/Enteroinv asive E. coli (EIEC) Negative Negative 06/13/2025 7:59 PM CDT [facility] Cryptosporidium species Positive(A) Negative 06/13/2025 7:59 PM CDT [facility] Giardia lamblia Negative Negative 7:59 PM CDT [facility] Norovirus Gl/Gll Negative Negative 06/13/20 7:59 PM CDT [facility] Cyclospora cayetanensis Negative Negative 06/13/2025 7:59 PM CDT [facility] Stool RECTAL CONTENTS / Unknown Non-blood Collection / Unknown 06/13/2025 1:56 PM CDT 06/13/2025 2:20 PM CDT Narrative [facility] - 06/13/2025 7:59 PM CDT Assay performed using the FDA-cleared My Hood GI Panel Mid from [employer] A negative result should not rule out infection in patients with a probability for gastrointestinal infection. The assay does not test for all potential infectious agents of diarrheal disease. Positive results do not distinguish between a viable or replicating organism and the presence of a nonviable organism or nucleic acid, nor do they exclude the possibility of coinfection by organisms not in the panel. Results are intended to aid in the diagnosis of illness and are meant to be used in conjunction with other clinical findings. This test has been verified and is performed by the Infectious [facility] Diagnostic Laboratory at [facility]. This laboratory is certified under the Clinical Laboratory Improvement Amendments of 1988 (CLIA-88) as qualified to perform high complexity clinical laboratory testing. Tiffanie Youssef PA-C LAB - MICRO GENERAL ORDERA BLES Final Result [facility] Inf. Diseases Diag. Lab [address] [facility], [address] [place] [address], [facility] * C. difficile Toxin B PCR with reflex to C. difficile EIA (06/13/2025 1:56 PM CDT) C Difficile Toxin B by PCR Negative Negative 06/13/2025 5:32 PM CDT [facility] Comment:A negative result do es not exclude actual disease due to C. difficile and may be due to improper collection, handling and storage of the specimen or the number of organisms in the specimen is below the detection limit of the assay. Stool RECTAL CONTENTS / Unknown Non-blood Collection / Unknown 06/13/2025 1:56 PM CDT 06/13/2025 2:00 PM CDT Narrative [facility] - 06/13/2025 5:32 PM CDT The Myfacepage Xpert C. difficile Assay, performed on the [employer], is a qualitative in vitro diagnostic test for rapid detection of toxin B gene sequences from unformed (liquid or soft) stool specimens collected from patients suspected of having Clostridioides difficile infection (CDI). The test utilizes automated real-time polymerase chain reaction (PCR) to detect toxin gene sequences associated with toxin producing C. difficile. The Xpert C. difficile Assay is intended as an aid in the diagnosis of CDI. Tiffanie Youssef PA-C LAB - MICRO GENERAL ORDERA BLES Final Result [facility] Inf. Diseases Diag. Lab [address] [facility], [address] [place] [address] * CT Abdomen Pelvis w Contrast (06/13/2025 10:11 AM CDT) Anatomical Region Laterality Modality Abdomen/Pelvis, SUBRAD CT FRAN DY, UMP CT ABDOMEN PELVIS, RAD CT Computed Tomography 06/13/2025 10:1 1 AM CDT Impressions 06/13/2025 10:33 AM CDT IMPRESSION: 1. New finding of mild wall thickening involving the distal transverse colon extending to the descending colon. This could represent a distal colitis. Given the history this could be an active mild Crohn's colitis. No bowel obstruction, no abscess or fistula identified. Infectious colitis remains in the differential. 2. A few larger mesenteric lymph nodes are noted compared to 11/21/2023. Narrative 06/13/2025 10:33 AM CDT EXAM: CT ABDOMEN PELVIS W CONTRAST LOCATION: [facility] DATE: 06/13/2025 INDICATION: Diffuse pain, diarrhea, Crohn's. COMPARISON: 11/21/2023. TECHNIQUE: CT scan of the abdomen and pelvis was performed following injection of IV contrast. Multiplanar reformats were obtained. Dose reduction techniques were used. CONTRAST: 100 mL Isovue 370 FINDINGS: LOWER CHEST: Normal. HEPATOBILIARY: Hepatic steatosis. No acute liver or gallbladder abnormality. PANCREAS: Normal. SPLEEN: Normal. ADRENAL GLANDS: Normal. KIDNEYS/BLADDER: No hydronephrosis or obstructing stone. No acute renal or bladder abnormality. BOWEL: No bowel obstruction. Stable postoperative changes at the ileocecal junction and colorectal regions. New finding of mild wall thickening at the mid transverse colon extending distally, for example series 3 image 83, and mildly involving the descending colon. Remainder of the bowel shows no acute inflammation. No abscess or free air. LYMPH NODES: There are several mildly more prominent mesenteric lymph nodes. A grouping of these suggested on series 3 image 105. VASCULATURE: Normal. PELVIC ORGANS: No acute pelvic abnormality. MUSCULOSKELETAL: Mild degenerative changes of the spine. Otherwise unremarkable. Procedure Note Deion Singh MD - 06/13/2025 EXAM: CT ABDOMEN PELVIS W CONTRAST LOCATION: [facility] DATE: 06/13/2025 INDICATION: Diffuse pain, diarrhea, Crohn's. COMPARISON: 11/21/2023. TECHNIQUE: CT scan of the abdomen and pelvis was performed followinginjection of IV contrast. Multiplanar reformats were obtained. Dosereduction techniques were used. CONTRAST: 100 mL Isovue 370 FINDINGS: LOWER CHEST: Normal. HEPATOBILIARY: Hepatic steatosis. No acute liver or gallbladderabnormality. PANCREAS: Normal. SPLEEN: Normal. ADRENAL GLANDS: Normal. KIDNEYS/BLADDER: No hydronephrosis or obstructing stone. No acute renal orbladder abnormality. BOWEL: No bowel obstruction. Stable postoperative changes at the ileocecaljunction and colorectal regions. New finding of mild wall thickening atthe mid transverse colon extending distally, for example series 3 image83, and mildly involving the descending colon. Remainder of the bowel shows no acute inflammation. Noabscess or free air. LYMPH NODES: There are several mildly more prominent mesenteric lymphnodes. A grouping of these suggested on series 3 image 105. VASCULATURE: Normal. PELVIC ORGANS: No acute pelvic abnormality. MUSCULOSKELETAL: Mild degenerative changes of the spine. Otherwiseunremarkable. IMPRESSION: 1. New finding of mild wall thickening involving the distal transversecolon extending to the descending colon. This could represent a distalcolitis. Given the history this could be an active mild Crohn's colitis.No bowel obstruction, no abscess or fistula identified. Infectious colitis remains in the differential. 2. A few larger mesenteric lymph nodes are noted compared to 11/21/2023. Clemente Mensah MD IMG CT ORDERABLES Final R esult * (ABNORMAL) Manual Differential (06/13/2025 9:39 AM CDT) % Neutrophils 72 % SHIRA 06/13/2025 10:22 AM CDT LABORATORY % Lymphocytes 13 % SHIRA 06/13/2025 10:22 AM CDT LABORATORY % Monocytes 11 % SHIRA 06/13/2025 10:22 AM CDT LABORATORY % Eosinophils 3 % SHIRA 06/13/2025 10:22 AM CDT LABORATORY % Basophils 1 % SHIRA 06/13/2025 10:22 AM CDT LABORATORY Absolute Neutrophils 10.9(H) 1.6 - 8.3 10e3/uL SHIRA 06/13/2025 10:22 AM CDT LABORATORY Absolute Lymphocytes 2.0 0.8 - 5.3 10e3/uL SHIRA 06/13/2025 10:22 AM CDT LABORATORY Absolute Monocytes 1.7(H) 0.0 - 1.3 10e3/uL SHIRA 06/13/2025 10:22 AM CDT LABORATORY Absolute Eosinophils 0.5 0.0 - 0.7 10e3/uL SHIRA 06/13/2025 10:22 AM CDT LABORATORY Absolute Basophils 0.2 0.0 - 0.2 10e3/uL SHIRA 06/13/2025 10:22 AM CDT LABORATORY Blood VENOUS LINE / Unknown Venipuncture / Unknown 06/13/2025 9:39 AM CDT 06/13/2025 9:44 AM CDT Clemente Mensah MD LAB - BLOOD ORDERABLES Fi nal Result [facility] Acute Care Lab [address] Lab (1st floor, no room number) [address] * (ABNORMAL) RBC and Platelet Morphology (06/13/2025 9:39 AM CDT) RBC Morphology Confirmed RBC Indices 06/13/2025 10:21 AM CDT [facility] Platelet Assessment Automated Count Confirmed. Platelet morphology is normal. Automated Count Confirmed. Platelet morphology is normal. SHIRA 06/13/2025 10:21 AM CDT [facility] Reactive Lymphocytes Present(A) None Seen SHIRA 06/13/2025 10:21 AM CDT [facility] Blood VENOUS LINE / Unknown Venipuncture / Unknown 06/13/2025 9:39 AM CDT 06/13/2025 9:44 AM CDT us Clemente Mensah MD LAB - BLOOD ORDERABLES Fi nal Result LABORATORY [facility] Lab [address] Lab (1st floor, no room number) [address] * (ABNORMAL) CBC with platelets and differential (06/13/2025 9:39 AM CDT) WBC Count 15.2(H) 4.0 - 11.0 10e3/uL 06/13/2025 10:21 AM CDT [facility] RBC Count 5.40 4.40 - 5.90 10e6/uL 06/13/2025 10:21 AM CDT [facility] Hemoglobin 17.6 13.3 - 17.7 g/dL 06/13/2025 10:21 AM CDT [facility] Hematocrit 48.5 40.0 - 53.0 % 06/13/2025 10:21 AM CDT [facility] MCV 90 78 - 100 fL 06/13/2025 10:21 AM CDT [facility] MCH 32.6 26.5 - 33.0 pg 06/13/2025 10:21 AM CDT [facility] MCHC 36.3 31.5 - 36.5 g/dL 06/13/2025 10:21 AM CDT [facility] RDW 12.2 10.0 - 15.0 % 06/13/2025 10:21 AM CDT LABORATORY Platelet Count 208 150 - 450 10e3/uL 06/13/2025 10:21 AM CDT [facility] Blood VENOUS LINE / Unknown Venipuncture / Unknown 06/13/2025 9:39 AM CDT 06/13/2025 9:44 AM CDT us Clemente Mensah MD LAB - BLOOD ORDERABLES Fi nal Result [facility] Lab [address] Lab (1st floor, no room number) [place] [phone] * (ABNORMAL) CRP inflammation (06/13/2025 9:39 AM CDT) CRP Inflammation 21.71(H) <5.00 mg/L 06/13/2025 10:11 AM CDT [facility] Blood VENOUS LINE / Unknown Venipuncture / Unknown 06/13/2025 9:39 AM CDT 06/13/2025 9:44 AM CDT us Clemente Mensah MD LAB - BLOOD ORDERABLES Fi nal Result Performing Organization Address [facility]/ZIP Co de Phone Number [facility] Lab [address] Lab (1st floor, no room number) [place] [address] * Lipase (06/13/2025 9:39 AM CDT) Lipase 24 13 - 60 U/L 06/13/2025 10:11 AM CDT [facility] Blood VENOUS LINE / Unknown Venipuncture / Unknown 06/13/2025 9:39 AM CDT 06/13/2025 9:44 AM CDT us Clemente Mensah MD LAB - BLOOD ORDERABLES Fi nal Result [facility] [address] Lab (1st floor, no room number) [place] [address] * (ABNORMAL) Comprehensive Metabolic Panel (Limited Occurrences) (06/13/2025 9:39 AM CDT) Sodium 136 135 - 145 mmol/L 06/13/2025 10:11 AM CDT [facility] Potassium 3.6 3.4 - 5.3 mmol/L 06/13/2025 10:11 AM CDT [facility] Carbon Dioxide (CO2) 24 22 - 29 mmol/L 06/13/2025 10:11 AM CDT [facility] Anion Gap 14 7 - 15 mmol/L 06/13/2025 10:11 AM CDT [facility] Urea Nitrogen 15.0 6.0 - 20.0 mg/dL 06/13/2025 10:11 AM CDT [facility] Creatinine 0.99 0.67 - 1.17 mg/dL 06/13/2025 10:11 AM CDT [facility] GFR Estimate >90 >60 mL/min/1.7 3m2 06/13/2025 10:11 AM CDT [facility] Comment:eGFR calculated usin 2020 CKD-EPI equation. Calcium 8.8 8.8 - 10.4 mg/dL 06/13/2025 10:11 AM CDT [facility] Chloride 98 98 - 107 mmol/L 06/13/2025 10:11 AM CDT [facility] Glucose 102(H) 70 - 99 mg/dL 06/13/2025 10:11 AM CDT [facility] Alkaline Phosphatase 139 40 - 150 U/L 06/13/2025 10:11 AM CDT [facility] AST 56(H) 0 - 45 U/L 06/13/2025 10:11 AM CDT [facility] ALT 91(H) 0 - 70 U/L 06/13/2025 10:11 AM CDT [facility] Protein Total 7.8 6.4 - 8.3 g/dL 06/13/2025 10:11 AM CDT [facility] Albumin 4.3 3.5 - 5.2 g/dL 06/13/2025 10:11 AM CDT [facility] Bilirubin Total 0.5 <=1.2 mg/dL 06/13/2025 10:11 AM CDT [facility] Blood VENOUS LINE / Unknown Venipuncture / Unknown 06/13/2025 9:39 AM CDT 06/13/2025 9:44 AM CDT us Clemente Mensah MD LAB - BLOOD ORDERABLES Fi nal Result [facility] Acute [facility] Lab [address] [facility] Lab (1st floor, no room number) [place] [address] documented in this encounter Visit Diagnoses Diagnosis Crohn's disease of colon with complication (H)- Primary Crohn's disease of colon with complication (H) documented in this encounter Admitting Diagnoses Diagnosis Crohn's disease of colon with complication (H) documented in this encounter Administered Medications Inactive Administered Medications - up to 3 most recent administrations Medication Order MAR Action Action Date Dose Rate Site acetaminophen (TYLENOL) Suppository 650 mg 650 mg, Rectal, EVERY 4 HOURS PRN, mild pain, other, and adjunct with moderate or severe pain or per patient request, Starting on Thu06/13/25 at 1143, Alternate with ibuprofen if ordered. Maximum acetaminophen dose from all sources = 75 mg/kg/day not to exceed 4 grams/day. acetaminophen (TYLENOL) tablet 650 mg 650 mg, Oral, EVERY 4 HOURS PRN, mild pain, other, and adjunct with moderate or severe pain or per patient request, Starting on Thu06/13/25 at 1143, Alternate with ibuprofen if ordered. Maximum acetaminophen dose from all sources = 75 mg/kg/day not to exceed 4 grams/day. $Given 06/15/2025 5:59 AM CDT 650 mg $Given 06/14/2025 9:48 AM CDT 650 mg $Given 06/13/2025 10:55 PM CDT 650 mg azithromycin (ZITHROMAX) tablet 500 mg Routine, 500 mg, Oral, DAILY, First dose (after last modification) on Thu06/13/25 at 2130, Indications: Intra-Abdominal InfectionIndications:Intra-Abdominal Infection $Given 06/15/2025 8:41 AM CDT 500 mg $Given 06/14/2025 9:48 AM CDT 500 mg $Given 06/13/2025 9:37 PM CDT 500 mg enoxaparin ANTICOAGULANT (LOVENOX) injection 40 mg 40 mg, Subcutaneous, EVERY 24 HOURS, First dose on Thu06/13/25 at 1600, Contact provider if platelet count drops by 50% or more after enoxaparin initiation OR if platelet count falls below 50 x 10e3/uL $Given 06/13/2025 3:14 PM CDT 40 mg famotidine (PEPCID) tablet 20 mg 20 mg, Oral, 2 TIMES DAILY, First dose on [place] 06/15/25 at 1030 $Given 06/15/2025 11:34 AM CDT 20 mg iopamidol (ISOVUE-370) solution 500 mL 500 mL, Intravenous, ONCE, On Thu06/13/25 at 0955, For 1 dose $Given 06/13/2025 10:02 AM CDT 100 mLs lactated ringers infusion at 100 mL/hr, Intravenous, CONTINUOUS, Starting on Thu06/13/25 at 1145, Until Thu06/14/25 at 1144 Rate/Dose Verify 06/14/2025 9:50 AM CDT 100 mL/hr $New Bag 06/14/2025 7:19 AM CDT 100 mL/hr $New Bag 06/13/2025 9:38 PM CDT 100 mL/hr naloxone (NARCAN) injection 0.2 mg 0.2 mg, Intravenous, EVERY 2 MIN PRN, opioid reversal, Starting on Thu06/13/25 at 2048, Administer intravenous route when available and notify provider when administered. For unintended sedation or respiratory depression if all of the below criteria are met: ~ respiratory rate LESS than or EQUAL to 8. ~SaO2 less than 92% and or/end-tidal CO2 is greater than 50. ~ the patient is receiving an opioid, has unintended sedations assessed as RASS (-3), and is currently not on mechanical ventilation. RASS scale moderate (-3) is movement or eye opening to voice but no eye contact. Patient Monitoring Once the patient has demonstrated a response to the naloxone, continue to monitor respiratory rate, depth, oxygen saturation and end-tidal CO2 (if available) every 15 minutes x 2, then every 30 minutes x 2, then every 1 hour x 1 after each naloxone dose. Consider transfer to ICU if patient respiratory parameters have not improved after 4 naloxone doses. naloxone (NARCAN) injection 0.2 mg 0.2 mg, Intramuscular, EVERY 2 MIN PRN, opioid reversal, Starting on Thu06/13/25 at 2047, Administer intramuscular if an intravenous route is not available and notify provider when administered. For unintended sedation or respiratory depression if all of the below criteria are met: ~ respiratory rate LESS than or EQUAL to 8. ~SaO2 less than 92% and or/end-tidal CO2 is greater than 50. ~ the patient is receiving an opioid, has unintended sedations assessed as RASS (-3), and is currently not on mechanical ventilation. RASS scale moderate (-3) is movement or eye opening to voice but no eye contact. Patient Monitoring Once the patient has demonstrated a response to the naloxone, continue to monitor respiratory rate, depth, oxygen saturation and end-tidal CO2 (if available) every 15 minutes x 2, then every 30 minutes x 2, then every 1 hour x 1 after each naloxone dose. Consider transfer to ICU if patient respiratory parameters have not improved after 4 naloxone doses. naloxone (NARCAN) injection 0.4 mg 0.4 mg, Intravenous, EVERY 2 MIN PRN, opioid reversal, Starting on Thu06/13/25 at 2047, Administer intravenous route when available and notify provider when administered. For unintended sedation or respiratory depression if all of the below criteria are met: ~ respiratory rate LESS than or EQUAL to 8. ~ SaO2 less than 92% and or/end-tidal CO2 is greater than 50. ~ the patient is receiving an opioid, has unintended sedation assessed as RASS (-4) or (-5) and patient is currently not on mechanical ventilation. RASS scale (-4) is deep sedation with no response to voice but movement or eye opening to physical stimulation. RASS scale (-5) is unarousable. Patient Monitoring Once the patient has demonstrated a response to the naloxone, continue to monitor respiratory rate, depth, oxygen saturation and end-tidal CO2 (if available) every 15 minutes x 2, then every 30 minutes x 2, then every 1 hour x 1 after each naloxone dose. Consider transfer to ICU if patient respiratory parameters have not improved after 4 naloxone doses. naloxone (NARCAN) injection 0.4 mg 0.4 mg, Intramuscular, EVERY 2 MIN PRN, opioid reversal, Starting on Thu06/13/25 at 2047, Administer intramuscular if an intravenous route is not available and notify provider when administered. For unintended sedation or respiratory depression if all of the below criteria are met: ~ respiratory rate LESS than or EQUAL to 8. ~ SaO2 less than 92% and or/end-tidal CO2 is greater than 50. ~ the patient is receiving an opioid, has unintended sedation assessed as RASS (-4) or (-5) and patient is currently not on mechanical ventilation. RASS scale (-4) is deep sedation with no response to voice but movement or eye opening to physical stimulation. RASS scale (-5) is unarousable. Patient Monitoring Once the patient has demonstrated a response to the naloxone, continue to monitor respiratory rate, depth, oxygen saturation and end-tidal CO2 (if available) every 15 minutes x 2, then every 30 minutes x 2, then every 1 hour x 1 after each naloxone dose. Consider transfer to ICU if patient respiratory parameters have not improved after 4 naloxone doses. nitazoxanide (ALINIA) tablet 500 mg Routine, 500 mg, Oral, EVERY 12 HOURS SCHEDULED, First dose on Thu06/13/25 at 2030, Indications: Intra-Abdominal InfectionIndications:Intra-Abdominal Infection $Given 06/15/2025 9:18 AM CDT 500 mg $Given 06/14/2025 7:30 PM CDT 500 mg $Given 06/14/2025 9:48 AM CDT 500 mg ondansetron (ZOFRAN ODT) ODT tab 4 mg 4 mg, Oral, EVERY 6 HOURS PRN, nausea/vomiting - 1st line, Starting on Thu06/13/25 at 1143, This is Step 1 of nausea and vomiting management. If nausea not resolved in 15 minutes, go to Step 2 prochlorperazine (COMPAZINE). With dry hands, peel back foil backing and gently remove tablet. Do not push oral disintegrating tablet through foil backing. Administer immediately on tongue and oral disintegrating tablet dissolves in seconds, then swallow with saliva. Liquid not required. $Given 06/15/2025 8:42 AM CDT 4 mg $Given 06/14/2025 11:03 PM CDT 4 mg $Given 06/14/2025 4:03 PM CDT 4 mg ondansetron (ZOFRAN) injection 4 mg 4 mg, Intravenous, EVERY 6 HOURS PRN, nausea/vomiting - 1st line, Administer over 2-5 Minutes, Starting on Thu06/13/25 at 1143, Give IF patient unable to tolerate oral medication. This is Step 1 of nausea and vomiting management. If nausea not resolved in 15 minutes, go to Step 2 prochlorperazine (COMPAZINE). simethicone (MYLICON) chewable tablet 80 mg 80 mg, Oral, EVERY 6 HOURS PRN, cramping, Starting on [place] 06/15/25 at 1013 simethicone (MYLICON) suspension 40 mg 40 mg, Oral, EVERY 6 HOURS PRN, cramping, Starting on Thu06/13/25 at 1143 $Given 06/14/2025 8:33 PM CDT 40 mg sodium chloride 0.9 % bag for CT scan flush As instructed, 100 mL, EVERY 1 HOUR PRN, line flush, Starting on Thu06/13/25 at 0953, For 12 hours, This entry is for use by Radiology to intermittently used as a flush in patients receiving a CT scan. $Given 06/13/2025 10:02 AM CDT 65 mLs sodium chloride 0.9% BOLUS 1,000 mL Intravenous, 1,000 mL, ONCE, On Thu06/13/25 at 0930, For 1 dose $New Bag 06/13/2025 9:40 AM CDT 1,000 mLs documented in this encounter Active and Recently Administered Medications Times are shown in CDT. Scheduled Medication Order 06/13/2025 06/14/2025 06/15/2025 azithromycin (ZITHROMAX) tablet 500 mg Routine, 500 mg, Oral, DAILY, First dose (after last modification) on Thu06/13/25 at 2130, Indications: Intra-Abdominal Infection 2137 ($Given - Provider: Aaliyah Lopez RN) 0948 ($Given - Provider: Lilia Swain RN) 0841 ($Given - Provider: Noé Delong, JANELL) enoxaparin ANTICOAGULANT (LOVENOX) injection 40 mg 40 mg, Subcutaneous, EVERY 24 HOURS, First dose on Thu06/13/25 at 1600, Contact provider if platelet count drops by 50% or more after enoxaparin initiation OR if platelet count falls below 50 x 10e3/uL 1514 ($Given - Provider: Khadijah Jiang RN) 1603 (Not Given - Provider: Loretta Riojas RN - Reason: Patient/family refused) 1600 (Canceled Entry - Provider: Orders Generic Provider - Comment: Automatically canceled at discontinue of medication order) famotidine (PEPCID) tablet 20 mg 20 mg, Oral, 2 TIMES DAILY, First dose on Thu06/15/25 at 1030 1134 ($Given - Provider: Noé Delong, RN) iopamidol (ISOVUE-370) solution 500 mL (COMPLETED) 500 mL, Intravenous, ONCE, On Thu06/13/25 at 0955, For 1 dose 1002 ($Given - Provider: In[facility] Cun[facility] nitazoxanide (ALINIA) tablet 500 mg Routine, 500 mg, Oral, EVERY 12 HOURS SCHEDULED, First dose on Thu06/13/25 at 2030, Indications: Intra-Abdominal Infection 2249 ($Given - Provider: Aaliyah Lopez RN) 0948 ($Given - Provider: Lilia Swain, JANELL)1930 ($Given - Provider: Loretta Riojas RN) 0918 ($Given - Provider: Noé Delong, JANELL) sodium chloride (PF) 0.9% PF flush 3 mL 3 mL, Intracatheter, EVERY 8 HOURS SCHEDULED, First dose on Thu06/13/25 at 1400, to lock peripheral IV dormant line 1504 (Not Given - Provider: Khadijah Jiang RN - Reason: IV Infusing)2200 (Not Given - Provider: Aaliyah Lopez RN - Reason: IV Infusing) 0600 (Not Given - Provider: Aaliyah Lopez RN - Reason: IV Infusing)1400 (Canceled Entry - Provider: Lilia Swain RN)2034 (Not Given - Provider: Loretta Riojas RN - Reason: No IV Access) 0600 (Not Given - Provider: Aaliyah Lopez RN - Reason: No IV Access)1448 (Not Given - Provider: Noé Delong, JANELL - Reason: No IV Access) sodium chloride 0.9% BOLUS 1,000 mL (COMPLETED) Intravenous, 1,000 mL, ONCE, On Thu06/13/25 at 0930, For 1 dose 0940 ($New Bag - Provider: Shweta Andrew RN)1040 (Stopped - Provider: Shweta Andrew RN) Continuous Medication Order 06/13/2025 06/14/2025 06/15/2025 lactated ringers infusion () at 100 mL/hr, Intravenous, CONTINUOUS, Starting on Thu06/13/25 at 1145, Until Thu06/14/25 at 1144 1237 ($New Bag - Provider: Shweta Andrew RN)1503 (ED/Periop/Clinic Infusing on Admission/transfer - Provider: Khadijah Jiang RN)2138 ($New Bag - Provider: Aaliyah Lopez RN) 0719 ($New Bag - Provider: Aaliyah Lopez RN)0950 (Rate/Dose Verify - Provider: Lilia Swain RN)1212 (Stopped - Provider: Lilia Swain RN) PRN Medication Order 06/13/2025 06/14/2025 06/15/2025 acetaminophen (TYLENOL) Suppository 650 mg(Linked Group 1) 650 mg, Rectal, EVERY 4 HOURS PRN, mild pain, other, and adjunct with moderate or severe pain or per patient request, Starting on Thu06/13/25 at 1143, Alternate with ibuprofen if ordered. Maximum acetaminophen dose from all sources = 75 mg/kg/day not to exceed 4 grams/day. 1514 (See Alternative - Provider: Khadijah Jiang RN)2255 (See Alternative - Provider: Aaliyah Lopez RN) 0948 (See Alternative - Provider: Lilia Swain RN) 0559 (See Alternative - Provider: Aaliyah Lopez RN) acetaminophen (TYLENOL) tablet 650 mg(Linked Group 1) 650 mg, Oral, EVERY 4 HOURS PRN, mild pain, other, and adjunct with moderate or severe pain or per patient request, Starting on Thu06/13/25 at 1143, Alternate with ibuprofen if ordered. Maximum acetaminophen dose from all sources = 75 mg/kg/day not to exceed 4 grams/day. 1514 ($Given - Provider: Khadijah Jiang RN)2255 ($Given - Provider: Aaliyah Lopez RN) 0948 ($Given - Provider: Lilia Swain RN) 0559 ($Given - Provider: Aaliyah G Teiken, RN) calcium carbonate (TUMS) chewable tablet 1,000 mg 1,000 mg, Oral, 4 TIMES DAILY PRN, heartburn, Starting on Thu06/13/25 at 1143 HYDROmorphone (DILAUDID) injection 0.2 mg 0.2 mg, Intravenous, EVERY 2 HOURS PRN, moderate pain, IF patient cannot take oral opioid OR IF pain not managed with non-pharmacological, non-opioid, or oral opioid interventions if ordered, Starting on Thu06/13/25 at 1143, May use concomitant with non-opioid analgesics. HYDROmorphone (DILAUDID) injection 0.4 mg 0.4 mg, Intravenous, EVERY 2 HOURS PRN, severe pain, IF patient cannot take oral opioid OR IF pain not managed with non-pharmacological, non-opioid, or oral opioid interventions if ordered, Starting on Thu06/13/25 at 1143, May use concomitant with non-opioid analgesics. lidocaine (LMX4) cream Topical, EVERY 1 HOUR PRN, pain, with VAD insertion, Starting on Thu06/13/25 at 1143, Apply at least 30 minutes prior to VAD insertion in divided doses as needed for size of site for insertion. MAX Dose: 2.5 g ( of 5 g tube) Do NOT give if patient has a history of allergy to any local anesthetic or any lizbeth product. Do NOT use both lidocaine intradermal/subcutaneous injection and the lidocaine cream on the same site. lidocaine 1 % 0.1-1 mL 0.1-1 mL, Other, EVERY 1 HOUR PRN, mild pain with VAD insertion, Starting on Thu06/13/25 at 1143, MAX dose 1 mL subcutaneous OR intradermal along the side of the vein in divided doses as needed for VAD insertion. Do NOT give if patient has a history of allergy to any local anesthetic or any lizbeth product. Do NOT use both lidocaine intradermal/subcutaneous injection and the lidocaine cream on the same site. naloxone (NARCAN) injection 0.2 mg(Linked Group 2) 0.2 mg, Intravenous, EVERY 2 MIN PRN, opioid reversal, Starting on Thu06/13/25 at 2048, Administer intravenous route when available and notify provider when administered. For unintended sedation or respiratory depression if all of the below criteria are met: ~ respiratory rate LESS than or EQUAL to 8. ~SaO2 less than 92% and or/end-tidal CO2 is greater than 50. ~ the patient is receiving an opioid, has unintended sedations assessed as RASS (-3), and is currently not on mechanical ventilation. RASS scale moderate (-3) is movement or eye opening to voice but no eye contact. Patient Monitoring Once the patient has demonstrated a response to the naloxone, continue to monitor respiratory rate, depth, oxygen saturation and end-tidal CO2 (if available) every 15 minutes x 2, then every 30 minutes x 2, then every 1 hour x 1 after each naloxone dose. Consider transfer to ICU if patient respiratory parameters have not improved after 4 naloxone doses. naloxone (NARCAN) injection 0.2 mg(Linked Group 2) 0.2 mg, Intramuscular, EVERY 2 MIN PRN, opioid reversal, Starting on Thu06/13/25 at 2047, Administer intramuscular if an intravenous route is not available and notify provider when administered. For unintended sedation or respiratory depression if all of the below criteria are met: ~ respiratory rate LESS than or EQUAL to 8. ~SaO2 less than 92% and or/end-tidal CO2 is greater than 50. ~ the patient is receiving an opioid, has unintended sedations assessed as RASS (-3), and is currently not on mechanical ventilation. RASS scale moderate (-3) is movement or eye opening to voice but no eye contact. Patient Monitoring Once the patient has demonstrated a response to the naloxone, continue to monitor respiratory rate, depth, oxygen saturation and end-tidal CO2 (if available) every 15 minutes x 2, then every 30 minutes x 2, then every 1 hour x 1 after each naloxone dose. Consider transfer to ICU if patient respiratory parameters have not improved after 4 naloxone doses. naloxone (NARCAN) injection 0.4 mg(Linked Group 2) 0.4 mg, Intravenous, EVERY 2 MIN PRN, opioid reversal, Starting on Thu06/13/25 at 2047, Administer intravenous route when available and notify provider when administered. For unintended sedation or respiratory depression if all of the below criteria are met: ~ respiratory rate LESS than or EQUAL to 8. ~ SaO2 less than 92% and or/end-tidal CO2 is greater than 50. ~ the patient is receiving an opioid, has unintended sedation assessed as RASS (-4) or (-5) and patient is currently not on mechanical ventilation. RASS scale (-4) is deep sedation with no response to voice but movement or eye opening to physical stimulation. RASS scale (-5) is unarousable. Patient Monitoring Once the patient has demonstrated a response to the naloxone, continue to monitor respiratory rate, depth, oxygen saturation and end-tidal CO2 (if available) every 15 minutes x 2, then every 30 minutes x 2, then every 1 hour x 1 after each naloxone dose. Consider transfer to ICU if patient respiratory parameters have not improved after 4 naloxone doses. naloxone (NARCAN) injection 0.4 mg(Linked Group 2) 0.4 mg, Intramuscular, EVERY 2 MIN PRN, opioid reversal, Starting on Thu06/13/25 at 2048, Administer intramuscular if an intravenous route is not available and notify provider when administered. For unintended sedation or respiratory depression if all of the below criteria are met: ~ respiratory rate LESS than or EQUAL to 8. ~ SaO2 less than 92% and or/end-tidal CO2 is greater than 50. ~ the patient is receiving an opioid, has unintended sedation assessed as RASS (-4) or (-5) and patient is currently not on mechanical ventilation. RASS scale (-4) is deep sedation with no response to voice but movement or eye opening to physical stimulation. RASS scale (-5) is unarousable. Patient Monitoring Once the patient has demonstrated a response to the naloxone, continue to monitor respiratory rate, depth, oxygen saturation and end-tidal CO2 (if available) every 15 minutes x 2, then every 30 minutes x 2, then every 1 hour x 1 after each naloxone dose. Consider transfer to ICU if patient respiratory parameters have not improved after 4 naloxone doses. ondansetron (ZOFRAN ODT) ODT tab 4 mg(Linked Group 3) 4 mg, Oral, EVERY 6 HOURS PRN, nausea/vomiting - 1st line, Starting on Thu06/13/25 at 1143, This is Step 1 of nausea and vomiting management. If nausea not resolved in 15 minutes, go to Step 2 prochlorperazine (COMPAZINE). With dry hands, peel back foil backing and gently remove tablet. Do not push oral disintegrating tablet through foil backing. Administer immediately on tongue and oral disintegrating tablet dissolves in seconds, then swallow with saliva. Liquid not required. 2256 ($Given - Provider: Aaliyah Lopez RN) 1603 ($Given - Provider: Loretta Riojas RN)2303 ($Given - Provider: Loretta Riojas RN) 0841 (See Alternative - Provider: Noé Delong, RN)0842 ($Given - Provider: Noé Delong, JANELL) ondansetron (ZOFRAN) injection 4 mg(Linked Group 3) 4 mg, Intravenous, EVERY 6 HOURS PRN, nausea/vomiting - 1st line, Administer over 2-5 Minutes, Starting on Thu06/13/25 at 1143, Give IF patient unable to tolerate oral medication. This is Step 1 of nausea and vomiting management. If nausea not resolved in 15 minutes, go to Step 2 prochlorperazine (COMPAZINE). 2256 (See Alternative - Provider: Aaliyah Lopez RN) 1603 (See Alternative - Provider: Loretta Riojas RN)2303 (See Alternative - Provider: Loretta Riojas RN) 0841 (Not Given - Provider: Noé Delong RN - Reason: No IV Access)0842 (See Alternative - Provider: Noé Delong, JANELL) oxyCODONE (ROXICODONE) tablet 5 mg 5 mg, Oral, EVERY 4 HOURS PRN, severe pain, IF pain not managed with non-pharmacological and non-opioid interventions, Starting on Thu06/13/25 at 1143, May use concomitant with non-opioid analgesics. oxyCODONE IR (ROXICODONE) half-tab 2.5 mg 2.5 mg, Oral, EVERY 4 HOURS PRN, moderate pain, IF pain not managed with non-pharmacological and non-opioid interventions, Starting on Thu06/13/25 at 1143, May use concomitant with non-opioid analgesics. simethicone (MYLICON) chewable tablet 80 mg 80 mg, Oral, EVERY 6 HOURS PRN, cramping, Starting on Thu06/15/25 at 1013 simethicone (MYLICON) suspension 40 mg (CANCELED) 40 mg, Oral, EVERY 6 HOURS PRN, cramping, Starting on Thu06/13/25 at 1143 2033 ($Given - Provider: Loretta Riojas RN) sodium chloride (PF) 0.9% PF flush 3 mL 3 mL, Intracatheter, EVERY 1 MIN PRN, line flush, other, to ensure patency or to lock dormant line, Starting on Thu06/13/25 at 1143 sodium chloride 0.9 % bag for CT scan flush (CANCELED) As instructed, 100 mL, EVERY 1 HOUR PRN, line flush, Starting on Thu06/13/25 at 0953, For 12 hours, This entry is for use by Radiology to intermittently used as a flush in patients receiving a CT scan. 1002 ($Given - Provider: JORGE King) Linked Groups Order Group 1: acetaminophen (TYLENOL) tablet 650 mgJump to med 650 mg, Oral, EVERY 4 HOURS PRN, mild pain, other, and adjunct with moderate or severe pain or per patient request, Starting on Thu06/13/25 at 1143, Alternate with ibuprofen if ordered. Maximum acetaminophen dose from all sources = 75 mg/kg/day not to exceed 4 grams/day. Or acetaminophen (TYLENOL) Suppository 650 mgJump to med 650 mg, Rectal, EVERY 4 HOURS PRN, mild pain, other, and adjunct with moderate or severe pain or per patient request, Starting on Thu06/13/25 at 1143, Alternate with ibuprofen if ordered. Maximum acetaminophen dose from all sources = 75 mg/kg/day not to exceed 4 grams/day. Group 2: naloxone (NARCAN) injection 0.2 mgJump to med 0.2 mg, Intravenous, EVERY 2 MIN PRN, opioid reversal, Starting on Thu06/13/25 at 2048, Administer intravenous route when available and notify provider when administered. For unintended sedation or respiratory depression if all of the below criteria are met: ~ respiratory rate LESS than or EQUAL to 8. ~SaO2 less than 92% and or/end-tidal CO2 is greater than 50. ~ the patient is receiving an opioid, has unintended sedations assessed as RASS (-3), and is currently not on mechanical ventilation. RASS scale moderate (-3) is movement or eye opening to voice but no eye contact. Patient Monitoring Once the patient has demonstrated a response to the naloxone, continue to monitor respiratory rate, depth, oxygen saturation and end-tidal CO2 (if available) every 15 minutes x 2, then every 30 minutes x 2, then every 1 hour x 1 after each naloxone dose. Consider transfer to ICU if patient respiratory parameters have not improved after 4 naloxone doses. Or naloxone (NARCAN) injection 0.4 mgJump to med 0.4 mg, Intravenous, EVERY 2 MIN PRN, opioid reversal, Starting on Thu06/13/25 at 2047, Administer intravenous route when available and notify provider when administered. For unintended sedation or respiratory depression if all of the below criteria are met: ~ respiratory rate LESS than or EQUAL to 8. ~ SaO2 less than 92% and or/end-tidal CO2 is greater than 50. ~ the patient is receiving an opioid, has unintended sedation assessed as RASS (-4) or (-5) and patient is currently not on mechanical ventilation. RASS scale (-4) is deep sedation with no response to voice but movement or eye opening to physical stimulation. RASS scale (-5) is unarousable. Patient Monitoring Once the patient has demonstrated a response to the naloxone, continue to monitor respiratory rate, depth, oxygen saturation and end-tidal CO2 (if available) every 15 minutes x 2, then every 30 minutes x 2, then every 1 hour x 1 after each naloxone dose. Consider transfer to ICU if patient respiratory parameters have not improved after 4 naloxone doses. Or naloxone (NARCAN) injection 0.2 mgJump to med 0.2 mg, Intramuscular, EVERY 2 MIN PRN, opioid reversal, Starting on Thu06/13/25 at 2047, Administer intramuscular if an intravenous route is not available and notify provider when administered. For unintended sedation or respiratory depression if all of the below criteria are met: ~ respiratory rate LESS than or EQUAL to 8. ~SaO2 less than 92% and or/end-tidal CO2 is greater than 50. ~ the patient is receiving an opioid, has unintended sedations assessed as RASS (-3), and is currently not on mechanical ventilation. RASS scale moderate (-3) is movement or eye opening to voice but no eye contact. Patient Monitoring Once the patient has demonstrated a response to the naloxone, continue to monitor respiratory rate, depth, oxygen saturation and end-tidal CO2 (if available) every 15 minutes x 2, then every 30 minutes x 2, then every 1 hour x 1 after each naloxone dose. Consider transfer to ICU if patient respiratory parameters have not improved after 4 naloxone doses. Or naloxone (NARCAN) injection 0.4 mgJump to med 0.4 mg, Intramuscular, EVERY 2 MIN PRN, opioid reversal, Starting on Thu06/13/25 at 2047, Administer intramuscular if an intravenous route is not available and notify provider when administered. For unintended sedation or respiratory depression if all of the below criteria are met: ~ respiratory rate LESS than or EQUAL to 8. ~ SaO2 less than 92% and or/end-tidal CO2 is greater than 50. ~ the patient is receiving an opioid, has unintended sedation assessed as RASS (-4) or (-5) and patient is currently not on mechanical ventilation. RASS scale (-4) is deep sedation with no response to voice but movement or eye opening to physical stimulation. RASS scale (-5) is unarousable. Patient Monitoring Once the patient has demonstrated a response to the naloxone, continue to monitor respiratory rate, depth, oxygen saturation and end-tidal CO2 (if available) every 15 minutes x 2, then every 30 minutes x 2, then every 1 hour x 1 after each naloxone dose. Consider transfer to ICU if patient respiratory parameters have not improved after 4 naloxone doses. Group 3: ondansetron (ZOFRAN ODT) ODT tab 4 mgJump to med 4 mg, Oral, EVERY 6 HOURS PRN, nausea/vomiting - 1st line, Starting on Thu06/13/25 at 1143, This is Step 1 of nausea and vomiting management. If nausea not resolved in 15 minutes, go to Step 2 prochlorperazine (COMPAZINE). With dry hands, peel back foil backing and gently remove tablet. Do not push oral disintegrating tablet through foil backing. Administer immediately on tongue and oral disintegrating tablet dissolves in seconds, then swallow with saliva. Liquid not required. Or ondansetron (ZOFRAN) injection 4 mgJump to med 4 mg, Intravenous, EVERY 6 HOURS PRN, nausea/vomiting - 1st line, Administer over 2-5 Minutes, Starting on Thu06/13/25 at 1143, Give IF patient unable to tolerate oral medication. This is Step 1 of nausea and vomiting management. If nausea not resolved in 15 minutes, go to Step 2 prochlorperazine (COMPAZINE). documented in this encounter Additional Health Concerns Infection Onset Date Last Indicated Resolved Time Rule Out C-difficile 06/13/2025 06/13/2025 025 5:32 PM CDT documented as of this encounter Care Teams Department Editor Relationship Specialty Start Date End Date Sushant Schreiber MD [facility] [address] [place] [address] PCP - General Family Medicine 12/02/21 No Ref-Primary, Physician 12/02/21 Cisco Cacerse MD Fellow Gastroenterology 12/09/21 uYng Rodriguez MD [address] [facility] [address] [place], [place] [address] Cardiovascular Disease 12/25/21 Tatianna Horne, [facility] [address] [place] [address] Pharmacist Pharmacist Senior Market Intelligence Consultant 02/06/22 Billie Tucker, RN Specialty Quarry Manager Gastroenterology 12/10/22 Paul Sanford MD Gastroenterology 12/25/22 Paul Sanford MD Referring Physician Gastroenterology 01/14/23 Jt Waters MD [address] [place] [address] [id number] Dermatology 01/14/23 Bhavik Segura PA-C [address] [place] [address] Physician Home Health Aide Gastroenterology 04/28/23 Favian Mcknight MD [address] [place] [address] Dermatology 12/09/23 Tatianna Horne [facility] [address] [place] [address] Assigned MTM Pharmacist 07/08/24 Lyudmila Baltazar RN Home Infusion Figure Skater 08/29/24 Paul Sanford MD Home Infusion Following Provider Gastroenterology 09/07/24 Favian Mcknight MD [address] [place] [address] Assigned Dermatology Provider 02/05/25 documented as of this encounter
[2025-06-18] VITALS (10 sets, daily range): BP systolic 127–143; BP diastolic 84–97; PULSE 78–95; RESP 16–21; TEMP 36.1–36.6; O2SAT 96–100; BMI 34.3
--- NOTE | 2025-06-18 11:41 | ED_ITS ---
HPI - General Adult General Time Seen by Provider: 11:41 Date Seen: 06/18/25 Chief complaint: Diarrhea Stated complaint: bacterial infection Time Seen by Provider: 06/18/25 11:13 Source: patient and RN notes reviewed Mode of arrival: ambulatory Limitations: no limitations History of Present Illness HPI narrative: This 34-year-old male is coming in accompanied by his significant other with concerns of ongoing diarrhea. This patient has underlying Crohn's disease and received Remicade 2 weeks ago. He has had diarrhea now, they think it may be linked to swimming in a friend's pool or being in the hot tub. He was diagnosed with Cryptosporidium, was admitted for [address] [facility] last week. He states in the hospital he got 2 antibiotics IV, was improving. He was discharged on 1 oral antibiotic nitazoxanide which she has been taking. He has profuse ongoing watery diarrhea, is having abdominal cramping, feels weak. He came in complaining of a 10 lb weight loss but with the weight on our scale today, he has reached a 16 lb weight loss. He states he feels extremely dehydrated. This morning he started with emesis, has ongoing nausea. He wants a 2nd opinion, wonders if he should be having another antibiotic as he had 2 in the hospital. I did go online to [facility] and he has no records there, cannot see a Care everywhere from [facility]. I have asked staff to get has hospitalization records from [facility]. He sees a trim and burr operator at the [facility], Dr. Paul Sanford. He notes no blood in the stools. No fevers. Symptoms started on June 11. Patient was diagnosed with ileocolonic Crohn's in 2019. He had sigmoidectomy, partial ileocecectomy and distal small-bowel resection at [facility] around 2020. He had later takedown of the ostomy. He has had surgery for lysis of adhesions. He has had abdominal wall surgery for 3 incisional hernias. 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 He has had previous CMV viremia. He is had back surgery before. Related Data Home Medications ?Medication ?Instructions ?Recorded ?Confirmed infliximab 100 mg intravenous 900 mg IV Q8W 05/10/24 0 06/18/25 solution cetirizine 10 mg tablet (Zyrtec) 10 mg PO QDAY PRN 06/18/25 famotidine 20 mg tablet 20 mg PO BID 06/18/25 nitazoxanide 500 mg tablet 500 mg PO BID 06/18/2502/07 Previous Rx's ?Medication ?Instructions ?Recorded dextroamphetamine-amphetamine ER 20 mg PO QAM #30 caps 06/12/25 20 mg 24hr capsule,extend release Allergies Allergy/AdvReac Type Severity Reaction Status Date / Time acetaminophen (From Vicodin) AdvReac Mild Vomiting Verified 06/18/25 11:36 hydrocodone (From Vicodin) AdvReac Mild Vomiting Verified 06/18/25 11:36 Review of Systems Status of ROS: Reports: 6 or more systems reviewed and unremarkable except as noted in History and below [facility] Medical History (Updated 06/18/25 @ 13:39 by Dottie Antoine MD) Crohn's disease ?K50.90 - Crohn's disease, unspecified, without complications (ICD-10) Lumbar radiculopathy (12/2021) ?M54.16 - Radiculopathy, lumbar region (ICD-10) Pericarditis (11/2021) ?I31.9 - Disease of pericardium, unspecified (ICD-10) Surgical History History of arthroscopy of knee ?Z98.890 - Other specified postprocedural states (ICD-10) History of lumbar laminectomy (04/21/22) ?Z98.890 - Other specified postprocedural states (ICD-10) History of incisional hernia repair (08/2021) ?Z98.890 - Other specified postprocedural states (ICD-10) ?Z87.19 - Personal history of other diseases of the digestive system (ICD-10) History of colostomy (08/2020) Status post placement of ureteral stent (08/2020) ?Z96.0 - Presence of urogenital implants (ICD-10) History of resection of small bowel (08/2020) ?Z90.49 - Acquired absence of other specified parts of digestive tract (ICD- 10) Family History Aunt Ulcerative colitis Uncle Crohn's disease Social History What is your current living situation?: I presently have a place to live Problems where you live: declined to answer In the past 12 months, utilities in danger of being shut off: no In past 12 months, lack of transportation kept you from medical appts, meetings, work, or getting things needed for daily living: no In the past 12 mos, have been you worried that your food would run out before you had money to buy more?: never true In the past 12 mos, the food you bought just didn't last and you didn't have money to buy more?: never true Smoking Status: Former smoker Do you use any of these nicotine containing products: None Second hand tobacco smoke exposure: No How often do you have a drink containing alcohol: monthly or less AUDIT-C Alcohol total score: 1 Non-prescribed substance use: marijuana (any form) How often does anyone, including family, friends and others, physically hurt you : never How often does anyone, including family, friends and others, insult or talk down to you: never How often does anyone, including family, friends and others, threaten you with harm: never How often does anyone, including family, friends and others, scream or curse at you: never service: No Exam Const: Vital Signs, click to edit/add: Vital Signs - 24 hr 06/18/25 11:21 06/18/25 12:21 06/18/25 12:30 Temperature 96.9 F L Pulse Rate 81 Pulse Rate [Pulse Oximeter] 95 Respiratory Rate 16 18 Respiratory Rate [ Lower Abdomen] 18 Blood Pressure Blood Pressure [Ri ght Upper Arm] 130/90 H Pulse Oximetry 97 96 Oxygen Delivery Me thod Room Air 06/18/25 13:04 06/18/25 13:31 06/18/25 14:02 Temperature Pulse Rate 78 83 78 Pulse Rate [Pulse Oximeter] Respiratory Rate 19 21 20 Respiratory Rate [ Lower Abdomen] Blood Pressure 141/89 H 143/93 H 133/97 H Blood Pressure [Ri ght Upper Arm] Pulse Oximetry 97 97 98 Oxygen Delivery Me thod 06/18/25 14:04 06/18/25 14:31 06/18/25 15:02 Temperature 97.8 F Pulse Rate 79 78 Pulse Rate [Pulse Oximeter] Respiratory Rate 19 17 Respiratory Rate [ Lower Abdomen] Blood Pressure 136/93 H 127/84 Blood Pressure [Ri ght Upper Arm] Pulse Oximetry 98 100 Oxygen Delivery Me thod 06/18/25 15:17 Temperature 97.6 F Pulse Rate Pulse Rate [Pulse Oximeter] Respiratory Rate Respiratory Rate [ Lower Abdomen] Blood Pressure Blood Pressure [Ri ght Upper Arm] Pulse Oximetry Oxygen Delivery Me thod This 34-year-old male is alert, interactive, no apparent distress but looks like he does not feel well. He is ambulatory into the ED, seen in exam room 5. He is lying on the bed, looks comfortable. Sclera clear, symmetrical facial function. Lips are normal but his tongue is dry, oral mucosa quite dry. Speech is normal however. Lungs clear anteriorly, no tachypnea, no accessory muscle use. CV regular rate and rhythm, no murmur, normal S1-S2, no S3-S4. He has active bowel sounds but abdomen is not distended, not tender, feel no organomegaly. Skin is tanned, no rash, no lower extremity edema. Documenting provider has reviewed patient's vital signs: yes Course Course ED Course: This patient has obvious dehydration clinically based on his exam and his history of ongoing diarrhea. He is now developing some nausea and vomiting with this. Would seem that the Cryptosporidium is potentially incompletely treated. I have reviewed with Dem[facility]ri limitations of our facility. I do not have GI here. I do have the capacity to potentially talk to Infectious Disease that we consult with but it really will not be helpful if we cannot find the records of what he was on at [facility]. We are going to attempt re-collection at stool cultures and ova parasite if he does have stool production here. He understands that these are send out for us, will not likely have results for about 5 days. He certainly is dehydrated, we can check labs and start treatment for dehydration. I am going to need assistance with GI in potentially ID on him likely. He does not want to go back to [facility], hopefully may be able to talk to his GI group through [facility]. Doubt that this is reactivation of Crohn's disease but ultimately defer to GI which I do think he is going to need to see. Reevaluation(s) Time of Reevaluation #1: 13:36 Reevaluation #1: Patient is complaining of discomfort, abdominal cramping. Will give him 4 mg IV morphine. He is on pulse oximetry. He is aware that we are waiting to talk to accepting physicians at the [facility], do not know bed placement status at the facilities but we are requesting [facility]. He would consider [facility] as an option as well if possible. Had already reviewed with him that his white count was elevated. Lactate is normal but the rest of his chemistries are pending. He has not provided stool to this point. Will order a C difficile if he does provide stool here. If and when they do transfer, he would like his to drive him. At this time it does seem reasonable but we will reassess once we have all of his labs back and how he is doing clinically at the time of transfer. Consultations Consultation #1: Have spoken with Dr. Anup Mariano from [facility]. He agrees with transfer were patients can have further evaluation with ID in GI. Did review with him that are stool culture and ova and parasites are send outs for us. If patient does produce stool, can check a C diff but if he is transferring will not worry about the other send out. He did bring up an enteric panel but reviewed with him that that is a send out for us as well. We will order a 2 L of fluids to continue hydration, electrolytes are still pending. We will call Nereyda the coordinator in the transfer center back in see if she can assist us in transferring. 1:10 p.m.: Spoke with Nereyda in the transfer center. She put me through to patient placement. They will be paging out and calling back once all the appropriate transferring providers/physicians are on the phone. Have requested [facility] if possible. 1:46 p.m.: [facility] did call back with Dr. Dobson (hospitalist) and Dr. Mariano. Electrolytes came back when I was talking to them. His potassium was low at 3, sodium was low. Reviewed that I would give IV potassium replacement, I do not think he can tolerate orals at this time. Will give 1/3 L of LR and then start maintenance after that. The [facility] is full and they do not for see any available beds there. They do believe that they would be able to get him on [facility] this afternoon with discharges. Did review with them that I do not have any of the recommended anti parasitic treatments here. I do think this is likely ongoing Cryptosporidium from what he is telling me. If he does have stool here, we certainly can check a C difficile. I am not going to order any of the send out as he will transfer and they will likely have these results back much quicker than are delayed send out results. If patient's transfers going to be delayed, Dr. Dobson recommends that we recheck a BMP and venous blood gas with that later today. I will certainly update them if there is any concerning changes in this patient's status. Did review this with patient and his . We also discussed that he may not be able to transfer via personal vehicle if he is on IV medications. Time: 12:57 Vital Signs Vital signs: Initial Vital Signs Temperature 96.9 F L 06/18/25 11:21 Temperature Source Temporal Artery Scan 06/18/25 11:21 Pulse Rate 95 06/18/25 11:21 Respiratory Rate 16 06/18/25 11:21 Blood Pressure 130/90 H 06/18/25 11:21 Blood Pressure Mean 103 06/18/25 11:21 Blood Pressure Position Sitting 06/18/25 11:21 Pulse Oximetry 97 06/18/25 11:21 Oxygen Delivery Method Room Air 06/18/25 11:21 Vital Signs Temperature 96.9 F L 06/18/25 11:21 Pulse Rate 95 06/18/25 11:21 Respiratory Rate 16 06/18/25 11:21 Blood Pressure 130/90 H 06/18/25 11:21 Pulse Oximetry 97 06/18/25 11:21 Oxygen Delivery Method Room Air 06/18/25 11:21 Temperature 97.6 F 06/18/25 15:17 Pulse Rate 78 06/18/25 15:02 Respiratory Rate 17 06/18/25 15:02 Blood Pressure 127/84 06/18/25 15:02 Pulse Oximetry 100 06/18/25 15:02 Oxygen Delivery Method Room Air 06/18/25 11:21 Medications Administered Medications: Discontinued Medications Generic Name Dose Route Start Last Admin Trade Name Freq PRN Reason Stop Dose Admin Sodium Chloride 1,000 mls @ 1,000 mls/hr 06/18/25 11:55 06/18/25 13:24 0.9 % Sodium Chloride 1000 Ml IV 06/18/25 12:54 Infused .Q1H ADDIS Infusion Lactated Ringer's 1,000 mls @ 1,000 mls/hr 06/18/25 13:06 06/18/25 14:32 Lactated Ringers 1000 Ml IV 06/18/25 14:05 Infused .Q1H ONE Infusion Lactated Ringer's 1,000 mls @ 500 mls/hr 06/18/25 13:59 06/18/25 16:42 Lactated Ringers 1000 Ml IV 06/18/25 15:58 Infused .Q2H ADDIS Infusion Potassium Chloride 10 meq in 100 mls @ 100 mls/hr 06/18/25 14:00 06/18/25 16:42 Potassium Chloride IVPB 06/18/25 16:29 Infused Q90M ADDIS Infusion Morphine Sulfate 4 mg 06/18/25 13:35 06/18/25 13:47 Morphine 4 Mg/Ml Inj IVP 06/18/25 13:36 4 mg ONCE ONE Administration Ondansetron HCl 4 mg 06/18/25 11:55 06/18/25 12:16 Ondansetron 2 Mg/Ml Inj IVP 06/18/25 11:56 4 mg ONCE ONE Administration Medical Decision Making Lab Data Labs: Lab Results 06/18/25 06/18/25 Range/Units 11:54 12:12 WBC 18.05 H (4.50-11.00) K/uL RBC 5.64 (4.30-5.90) m/uL Hgb 18.1 H (13.5-17.5) gm/dL Hct 49.6 (37.0-53.0) % MCV 88 (80-100) fL MCH 32 (26-34) pg MCHC 37 H (32-36) gm/dL RDW Coeff of Nando 12.1 (11.5-15.5) % Plt Count 279 (140-440) K/uL Neut % (Auto) 48.8 (42.0-72.0) % Lymph % (Auto) 31.4 (20-44) % Coleman % (Auto) 17.8 H (0.0-11.0) % Eos % (Auto) 1.3 (0.0-7.0) % Baso % (Auto) 0.1 (0.0-3.0) % Neut # (Auto) 8.80 H (1.7-7.0) K/uL Lymph # (Auto) 5.70 H (0.90-2.90) K/uL Coleman # (Auto) 3.20 H (0.00-0.90) K/UL Eos # (Auto) 0.20 (0.00-0.50) K/uL Baso # (Auto) 0.00 (0.00-0.30) K/uL Abs Immat Gran (auto) 0.10 (0.00-0.30) K/uL Imm/Tot Granulo (auto) 0.6 % Diff Slide Review Acceptable Review (Acceptable) Sodium 131 L (135-149) mmol/L Potassium 3.0 L (3.6-5.1) mmol/L Chloride 104 (96-114) mmol/L Carbon Dioxide 11 L (20-32) mmol/L Anion Gap 16 H (7-15) mEq/L BUN 30 H (5-24) mg/dL Creatinine 1.3 (0.5-1.5) mg/dL Estimated Creat Clear 83.67 Estimated GFR 73 ml/min Glucose 110 (60-115) mg/dL Lactate 1.4 (0.5-1.9) mmol/L Calcium 8.8 (8.4-10.6) mg/dL Total Bilirubin 0.5 (0.1-1.5) mg/dL AST 38 H (12-35) U/L ALT 51 H (4-50) U/L Alkaline Phosphatase 104 (40-150) U/L C-Reactive Protein 4.6 H (0.5-1.0) mg/dL Total Protein 7.9 (6.0-8.3) g/dL Albumin 4.2 (3.3-5.0) g/dL Stl C. diff Tox B Gene Negative (Negative) Stl C. diff [id number] PRESUMPTIVE NEGATIVE (Negative) Discharge Plan Discharge Clinical Impression: Diarrhea, Crohn's disease Patient Disposition: [facility]
--- OUTSIDE RECORDS SUMMARY | 2025-06-18 12:01 | XMS_ITS | Encounter Summary ---
Author Organization [facility] Address [address] [place] [address] Care Team Providers Care Research Scholar Name Role Phone Sushant Schreiber MD Primary Care Provider [phone] No Ref-Primary, Physician Unavailable [phone] Cisco Caceres MD Unavailable Yung Rodriguez MD Unavailable [facility] Unavailable [phone] Billie Tucker RN Unavailable Unavailable Paul Sanford MD Unavailable Paul Sanford MD Unavailable [phone] Jt Waters MD Unavailable Jt Waters MD Unavailable Bhavik Segura PA-C Unavailable [phone] Paul Sanford MD Unavailable [phone] Favian Mcknight MD Unavailable [phone] Favian Mcknight MD Unavailable [phone] 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 Gender Identity Not on file Sexual Orientation Not on file documented as of this encounter Plan of Treatment Not on file documented as of this encounter Visit Diagnoses Not on filedocumented in this encounter Additional Health Concerns Infection Onset Date Last Indicated Resolved Time Rule Out C-difficile 06/13/2025 06/13/2025 025 5:32 PM CDT documented as of this encounter Care Teams Research Scholar Relationship Specialty Start Date End Date Sushant Schreiber MD [address] [address] PCP - General Family Medicine 12/02/21 No Ref-Primary, Physician 12/02/21 Cisco Caceres MD Fellow Gastroenterology 12/09/21 Yung Rodriguez MD [address] [facility] [address] [place] [id number] Cardiovascular Disease 12/25/21 [facility], [facility] [address] [place] [address] [phone] Pharmacist Pharmacist Patient Care Secretary 02/06/22 Billie Tucker, RN Specialty Accounts Receivable Bookkeeper Gastroenterology 12/10/22 Paul Sanford MD Gastroenterology 12/25/22 Paul Sanford MD Referring Physician Gastroenterology 01/14/23 Jt Waters MD [address] [place], [place] [phone] Dermatology 01/14/23 Jt Waters MD [address] [place] [address] Assigned Surgical Provider 01/17/23 01/28/24 Bhavik Segura PA-C [address] [place] [address] [phone] Physician Filter Machine Operator Gastroenterology 04/28/23 Paul Sanford MD [address] [place] [address] Assigned Gastroenterology Provider 07/18/23 02/04/25 Favian Mcknight MD [address] [place] [address] Dermatology 12/09/23 Favian Mcknight MD [address] [place] [address] Assigned Surgical Provider 01/29/24 02/04/25 [facility] [address] [place] [address] Assigned MTM Pharmacist 07/08/24 Lyudmila Baltazar RN Home Infusion Melter Assistant 08/29/24 Paul Sanford MD Home Infusion Following Provider Gastroenterology 09/07/24 Favian Mcknight MD [address] [place] [address] Assigned Dermatology Provider 02/05/25 documented as of this encounter
--- OUTSIDE RECORDS SUMMARY | 2025-06-18 12:01 | XMS_ITS | Encounter Summary ---
Author Organization [facility] Address [address] [place] [address] Care Team Providers Care Metal Neutralizer Name Role Phone Sushant Schreiber MD Primary Care Provider [phone] No Ref-Primary, Physician Unavailable [phone] Cisco Caceres MD Unavailable Yung Rodriguez MD Unavailable [facility] Unavailable Billie Tucker RN Unavailable Unavailable Paul Sanford MD Unavailable Paul Sanford MD Unavailable Jt Waters MD Unavailable Bhavik Segura PA-C Unavailable [phone] Favian Mcknight MD Unavailable [phone] [facility] Unavailable [phone] Lyudmila Baltazar RN Unavailable Unavailabl e Paul Sanford MD Unavailable [phone] Favian Mcknight MD Unavailable [phone] Encounter Details Date Type Department Care Team (Late st Contact Info) Description 05/24/2025 Telephone [facility] Gastroenterology Clinic [address] [place] [address] Ashley Verduzco, RN Social History Tobacco Use Types Packs/Day [...] on file 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 * Telephone Encounter - Ashley Verduzco RN - 05/24/2025 2:10 PM CDT Hello! Took a call on the back line from patient's pharmacy. Pt. is requesting refill of azaTHIOprine (IMURAN) 50 MG tablet Anthony Mcintyre MD originally ordered. Thanks! Ashley documented in this encounter Plan of Treatment Not on file documented as of this encounter Visit Diagnoses Not on filedocumented in this encounter Care Teams Metal Neutralizer Relationship Specialty Start Date End Date Sushant Schreiber MD [facility] - [address] [address] PCP - General Family Medicine 12/02/21 No Ref-Primary, Physician 12/02/21 Cisco Caceres MD Fellow Gastroenterology 12/09/21 Yung Rodriguez MD [address] [facility] [address] [place] [address] Cardiovascular Disease 12/25/21 [facility], [facility] [address] [place] [address] Pharmacist Pharmacist Drum Cleaner 02/06/22 Billie Tucker, JANELL Specialty Shaker Washer Gastroenterology 12/10/22 Paul Sanford MD Gastroenterology 12/25/22 Paul Sanford MD Referring Physician Gastroenterology 01/14/23 Jt Waters MD [address] [place] [id number] Dermatology 01/14/23 Bhavik Segura PACrispinC [address] [place] [address] [id number] Physician Size Marker Gastroenterology 04/28/23 Favian Mcknight MD [address] [place] [address] [id number] Dermatology 12/09/23 [facility], [facility] [address] [place] [address] [phone] Assigned MTM Pharmacist 07/08/24 Lyudmila Baltazar, RN Home Infusion Hired Help 08/29/24 Paul Sanford MD Home Infusion Following Provider Gastroenterology 09/07/24 Favian Mcknight MD [address] [place] [address] Assigned Dermatology Provider 02/05/25 documented as of this encounter
--- OUTSIDE RECORDS SUMMARY | 2025-06-18 12:01 | XMS_ITS | Encounter Summary ---
Author Organization [place] Address [address] [place] [address] Care Team Providers Care Insole Taper Name Role Phone Sushant Schreiber MD Primary Care Provider No Ref-Primary, Physician Unavailable Cisco Caceres MD Unavailable Yung Rodriguez MD Unavailable Tatianna Horne [facility] Unavailable Billie Tucker RN Unavailable Unavailable Paul Sanford MD Unavailable Paul Sanford MD Unavailable Jt Waters MD Unavailable Bhavik Segura PA-C Unavailable [phone] Favian Mcknight MD Unavailable [phone] Tatianna Horne [facility] Unavailable Lyudmila Baltazar RN Unavailable Unavailabl e Paul Sanford MD Unavailable Favian Mcknight MD Unavailable [phone] Encounter Details Date Type Department Care Team (Late st Contact Info) Description 06/15/2025 Home Infusion [facility] [address] [place] [id number] Raiza Singh, RN Social History Tobacco Use Types Packs/Day [...] in an abandoned building, in an overnight fci, or couch-surfing.) Yes 06/13/2025 Are you worried [...] on file 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 Gender Identity Not on file Sexual Orientation Not on file documented as of this encounter Plan of Treatment Not on file documented as of this encounter Visit Diagnoses Not on filedocumented in this encounter Care Teams Insole Taper Relationship Specialty Start Date End Date Sushant Schreiber MD [facility] [address] [place] [address] PCP - General Family Medicine 12/02/21 No Ref-Primary, Physician 12/02/21 Cisco Caceres MD Fellow Gastroenterology 12/09/21 Yung Rodriguez MD [address] [facility] [address] [place], [place] 4[address] Cardiovascular Disease 12/25/21 Tatianna Horne, [facility] [address] [place] [address] Pharmacist Pharmacist Integrated Circuit Ic Layout Designer 02/06/22 Billie Tucker, RN Specialty Topographical Surveyor Gastroenterology 12/10/22 Paul Sanford MD Gastroenterology 12/25/22 Paul Sanford MD Referring Physician Gastroenterology 01/14/23 Jt Waters MD [address] [place] [address] [id number] Dermatology 01/14/23 Bhavik Segura PA-C [address] [place] [address] Physician Grocery Buyer Gastroenterology 04/28/23 Favian Mcknight MD [address] [place] [address] Dermatology 12/09/23 Tatianna Horne [facility] [address] [place] [address] Assigned MTM Pharmacist 07/08/24 Lyudmila Baltazar RN Home Infusion Hand Iii Cutter 08/29/24 Palu Sanford MD Home Infusion Following Provider Gastroenterology 09/07/24 Favian Mcknight MD [address] [place] [address] Assigned Dermatology Provider 02/05/25 documented as of this encounter
--- OUTSIDE RECORDS SUMMARY | 2025-06-18 12:01 | XMS_ITS | Encounter Summary ---
Author Organization [place] Address [address] [place] [address] Care Team Providers Care Kosher Dietary Service Supervisor Name Role Phone Sushant Schreiber MD Primary Care Provider [phone] No Ref-Primary, Physician Unavailable Cisco Caceres MD Unavailable [phone] Yung Rodriguez MD Unavailable Tatianna Horne [facility] Unavailable Billie Tucker RN Unavailable Unavailable Paul Sanford MD Unavailable Paul Sanford MD Unavailable [phone] Jt Waters MD Unavailable Bhavik Segura PA-C Unavailable [phone] Paul Sanford MD Unavailable Favian Mcknight MD Unavailable [phone] Favian Mcknight MD Unavailable [phone] Tatianna Horne [facility] Unavailable Lyudmila Baltazar RN Unavailable 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 Gender Identity Not on file Sexual Orientation Not on file documented as of this encounter Plan of Treatment Not on file documented as of this encounter Visit Diagnoses Not on filedocumented in this encounter Additional Health Concerns Infection Onset Date Last Indicated Resolved Time Rule Out C-difficile 06/13/2025 06/13/2025 025 5:32 PM CDT documented as of this encounter Care Teams Kosher Dietary Service Supervisor Relationship Specialty Start Date End Date Sushant Schreiber MD [facility] [address] [address] PCP - General Family Medicine 12/02/21 No Ref-Primary, Physician 12/02/21 Cisco Caceres MD Fellow Gastroenterology 12/09/21 Yung Rodriguez MD [address] [facility] [address] [place] [address] Cardiovascular Disease 12/25/21 Tatianna Horne, [facility] [address] [place] [address] Pharmacist Pharmacist Cloth Bleaching Range Tender 02/06/22 Billie Tucker, JANELL Specialty Telemarketing Representative Gastroenterology 12/10/22 Paul Sanford MD Gastroenterology 12/25/22 Paul Sanford MD Referring Physician Gastroenterology 01/14/23 Jt Waters MD [address] [place] [address] Dermatology 01/14/23 Bhavik Segura PA-C [address] [place] [address] 526355 Physician Data Security Analyst Gastroenterology 04/28/23 Paul Sanford MD [address] [place] [address] 383195 Assigned Gastroenterology Provider 07/18/23 02/04/25 Favian Mcknight MD [address] [place] [address] [phone] Dermatology 12/09/23 Favian Mcknight MD [address] [place] [address] Assigned Surgical Provider 01/29/24 02/04/25 Tatianna Horne [facility] [address] [place] [address] [phone] Assigned MTM Pharmacist 07/08/24 Lyudmila Baltazar RN Home Infusion Qa Automation Engineer 08/29/24 Paul Sanford MD Home Infusion Following Provider Gastroenterology 09/07/24 Favian Mcknight MD [address] [place] [address] Assigned Dermatology Provider 02/05/25 documented as of this encounter
--- OUTSIDE RECORDS SUMMARY | 2025-06-18 12:01 | XMS_ITS | Encounter Summary ---
Author Organization [place] Address [address] [place] [address]61 Care Team Providers Care Accounts Payable Administrator Name Role Phone Sushant Schreiber MD Primary Care Provider No Ref-Primary, Physician Unavailable [phone] Cisco Caceres MD Unavailable [phone] Yung Rodriguez MD Unavailable Tatianna Horne [facility] Unavailable [phone] Billie Tucker RN Unavailable Unavailable Paul Sanford MD Unavailable Paul Sanford MD Unavailable Jt Waters MD Unavailable Bhavik Segura PA-C Unavailable [phone] Favian Mcknight MD Unavailable [phone] Tatianna Horne [facility] Unavailable Lyudmila Baltazar RN Unavailable Unavailabl e Paul Sanford MD Unavailable Favian Mcknight MD Unavailable [phone] Encounter Details Date Type Department Care Team (Late st Contact Info) Description 06/01/2025 [facility]phone [facility] [address] [place] [phone] Mohsen Cortes MA Social History Tobacco Use Types Packs/Day [...] on file 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 Gender Identity Not on file Sexual Orientation Not on file documented as of this encounter Plan of Treatment Not on file documented as of this encounter Visit Diagnoses Not on filedocumented in this encounter Care Teams Accounts Payable Administrator Relationship Specialty Start Date End Date Sushant Schreiber MD [facility] & [address] [address] PCP - General Family Medicine 12/02/21 No Ref-Primary, Physician 12/02/21 Cisco Caceres MD Fellow Gastroenterology 12/09/21 Ynug Rodriguez MD [address] [facility] [address] [place] [address] Cardiovascular Disease 12/25/21 Tatianna Horne [facility] [address] [place] [address] Pharmacist Pharmacist Cellulose Insulation Helper 02/06/22 Billie Tucker, RN Specialty Showroom Manager Gastroenterology 12/10/22 Paul Sanford MD Gastroenterology 12/25/22 Paul Sanford MD Referring Physician Gastroenterology 01/14/23 Jt Waters MD [address] [place] [address] 316265 Dermatology 01/14/23 Bhavik Segura PA-C [address] [place] [address] Physician Dust Mill Operator Gastroenterology 04/28/23 Favian Mcknight MD [address] [place] [address] Dermatology 12/09/23 Tatianna Horne [facility] [address] [place] [address] Assigned MTM Pharmacist 07/08/24 Lyudmila Baltazar, RN Home Infusion Improvement Spec 08/29/24 Paul Sanford MD Home Infusion Following Provider Gastroenterology 09/07/24 Favian Mcknight MD [address] [place] [address] Assigned Dermatology Provider 02/05/25 documented as of this encounter
--- OUTSIDE RECORDS SUMMARY | 2025-06-18 12:01 | XMS_ITS | Encounter Summary ---
Author Organization [place] Address [address] [place] [address] Care Team Providers Care Budget Director Name Role Phone Sushant Schreiber MD Primary Care Provider No Ref-Primary, Physician Unavailable [phone] Cisco Caceres MD Unavailable [phone] Yung Rodriguez MD Unavailable Tatianna Horne [facility] Unavailable Billie Tucker RN Unavailable Unavailable Paul Sanford MD Unavailable [phone] Paul Sanford MD Unavailable [phone] Jt Waters MD Unavailable Jt Waters MD Unavailable Bhavik Segura PA-C Unavailable [phone] Paul Sanford MD Unavailable [phone] Favian Mcknight MD Unavailable [phone] Favian Mcknight MD Unavailable [phone] Tatianna Horne [facility] Unavailable Lyudmila Baltazar RN Unavailable Unavailabl e Paul Sanford MD Unavailable [phone] Favian Mcknight MD Unavailable [phone] Encounter Details Date Type Department Care Team (Late st Contact Info) Description 11/02/2023 [facility]ology Clinic [address] [place] [address] Diony Drummond Social History Tobacco [...] on file 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 Gender Identity Not on file Sexual Orientation Not on file documented as of this encounter Plan of Treatment Not on file documented as of this encounter Visit Diagnoses Not on filedocumented in this encounter Additional Health Concerns Infection Onset Date Last Indicated Resolved Time Rule Out C-difficile 06/13/2025 06/13/2025 025 5:32 PM CDT documented as of this encounter Care Teams Budget Director Relationship Specialty Start Date End Date Sushant Schreiber MD [address] [address] PCP - General Family Medicine 12/02/21 No Ref-Primary, Physician 12/02/21 Cisco Caceres MD Fellow Gastroenterology 12/09/21 Yung Rodriguez MD [address] [facility] [address] [place] 127755 Cardiovascular Disease 12/25/21 Tatianna Horne, [facility] [address] [place] [address] 397245 Pharmacist Pharmacist Poker Manager 02/06/22 Billie Tucker, RN Specialty Neonatal Nurse Practitioner Gastroenterology 12/10/22 Paul Sanford MD Gastroenterology 12/25/22 Paul Sanford MD Referring Physician Gastroenterology 01/14/23 Jt Waters MD [address] [place], [place] 0[address] Dermatology 01/14/23 Jt Waters MD [address] [place] [address] Assigned Surgical Provider 01/17/23 01/28/24 Bhavik Segura PA-C [address] [place] [address] [phone] Physician Sampler Pickup Gastroenterology 04/28/23 Paul Sanford MD [address] [place] [address] Assigned Gastroenterology Provider 07/18/23 02/04/25 Favian Mcknight MD [address] [place] [address] Dermatology 12/09/23 Favian Mcknight MD [address] [place] [address] Assigned Surgical Provider 01/29/24 02/04/25 Tatianna Horne [facility] [address] [place] [address] Assigned MTM Pharmacist 07/08/24 Lyudmila Baltazar RN Home Infusion Manager Poker 08/29/24 Paul Sanford MD Home Infusion Following Provider Gastroenterology 09/07/24 Favian Mcknight MD [address] [place] [address] Assigned Dermatology Provider 02/05/25 documented as of this encounter
--- OUTSIDE RECORDS SUMMARY | 2025-06-18 12:01 | XMS_ITS | Encounter Summary ---
Author Organization [place] Address [address] [place] [address] Care Team Providers Care Brass Wind Instrument Maker Name Role Phone Sushant Schreiber MD Primary Care Provider [phone] No Ref-Primary, Physician Unavailable Cisco Caceres MD Unavailable Yung Rodriguez MD Unavailable Tatianna Horne [facility] Unavailable Billie Tcuker RN Unavailable Unavailable Paul Sanford MD Unavailable [phone] Paul Sanford MD Unavailable [phone] Jt Waters MD Unavailable Bhavik Segura PA-C Unavailable [phone] Favian Mcknight MD Unavailable [phone] Tatianna Horne [facility] Unavailable Lyudmila Baltazar RN Unavailable Unavailabl e Paul Sanford MD Unavailable [phone] Favian Mcknight MD Unavailable [phone] Encounter Details Date Type Department Care Team (Late st Contact Info) Description 05/25/2025 [facility] [address] 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 Gender Identity Not on file Sexual Orientation Not on file documented as of this encounter Plan of Treatment Not on file documented as of this encounter Visit Diagnoses Not on filedocumented in this encounter Additional Health Concerns Infection Onset Date Last Indicated Resolved Time Rule Out C-difficile 06/13/2025 06/13/2025 025 5:32 PM CDT documented as of this encounter Care Teams Brass Wind Instrument Maker Relationship Specialty Start Date End Date Sushant Schreiber MD [facility] & [address] [address] PCP - General Family Medicine 12/02/21 No Ref-Primary, Physician 12/02/21 Cisco Caceres MD Fellow Gastroenterology 12/09/21 Yung Rodriguez MD [address] [facility] [address] [place], [place] 7962[address] Cardiovascular Disease 12/25/21 Tatianna Horne, [facility] [address] [place] [address] Pharmacist Pharmacist Consulting Solution Manager 02/06/22 Billie Tucker, JANELL Specialty Powerhouse Electrician Apprentice Gastroenterology 12/10/22 Paul Sanford MD Gastroenterology 12/25/22 Paul Sanford MD Referring Physician Gastroenterology 01/14/23 Jt Waters MD [address] [place] [address] 591535 Dermatology 01/14/23 Bhavik Segura PA-C [address] [place] [address] 536255 Physician Linux Systems Engineer Gastroenterology 04/28/23 Favian Mcknight MD [address] [place] [address] 934085 Dermatology 12/09/23 Tatianna Horne [facility] [address] [place] [address] [phone] Assigned MTM Pharmacist 07/08/24 Lyudmila Baltazar RN Home Infusion Electrician Aircraft 08/29/24 Paul Sanford MD Home Infusion Following Provider Gastroenterology 09/07/24 Favian Mcknight MD [address] [place] [address] Assigned Dermatology Provider 02/05/25 documented as of this encounter
--- OUTSIDE RECORDS SUMMARY | 2025-06-18 12:01 | XMS_ITS | Encounter Summary ---
Author Organization [facility] Address [address] [place] [address] Care Team Providers Care Cargo Services Coordinator Name Role Phone Sushant Schreiber MD Primary Care Provider No Ref-Primary, Physician Unavailable Cisco Caceres MD Unavailable [phone] Sabiha Hogan APRN [facility] Unavailable [phone] Yung Rodriguez MD Unavailable Tatianna Horne [facility] Unavailable [phone] Tatianna Horne [facility] Unavailable [phone] Tatianna Horne [facility] Unavailable [phone] Billie Tucker RN Unavailable Unavailable [place] PA-C Unavailable Paul Sanford MD Unavailable [phone] Paul Sanford MD Unavailable [phone] Jt Waters MD Unavailable Jt Waters MD Unavailable Bhavik Segura PA-C Unavailable [phone] Paul Sanford MD Unavailable [phone] Favian Mcknight MD Unavailable [phone] Favian Mcknight MD Unavailable [phone] Anderson [facility] Unavailable Lyudmila Baltazar RN Unavailable Unavailabl e Paul Sanford MD Unavailable [phone] Favian Mcknight MD Unavailable [phone] Encounter Details Date Type Department Care Team (Late st Contact Info) Description 06/09/2022 Home Infusion ([facility]) [facility] [address] [place] [phone] Josue Hedrick, RN Social History Tobacco Use Types Packs/Day [...] on file 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 Gender Identity Not on file Sexual Orientation Not on file documented as of this encounter Nursing Notes * Josue Hedrick, JANELL - 06/09/2022 6:11 PM CDT Skilled Nurse [...] documented as of this encounter Care Teams Cargo Services Coordinator Relationship Specialty Start Date End Date Sushant Schreiber MD [address] [address] PCP - General Family Medicine 12/02/21 No Ref-Primary, Physician 12/02/21 Cisco Caceres MD Fellow Gastroenterology 12/09/[address] APRN HIGHWAY ENGINEERING TEACHER [address] [place], [place] 7724[address] Assigned Heart and Vascular Provider 12/15/21 02/13/23 Yung Rodriguez MD [address] [place] [address] Cardiovascular Disease 12/25/21 Tatianna Horne [facility] [address] [place] [address] Pharmacist Pharmacist Airline Lounge Receptionist 02/06/22 Tatianna Horne [facility] [address] [place] [address] Assigned MTM Pharmacist 04/12/22 Tatianna Horne [facility] [address] [place] [address] Assigned MTM Pharmacist 08/13/22 Billie Tucker, JANELL Specialty Supervisor Labor Gang Gastroenterology 12/10/22 [place] PA-C [address] [place] [address] Physician Logging Crew Supervisor Dermatology 12/25/22 01/13/23 Paul Sanford MD [address] [place] [address] MD Gastroenterology 12/25/22 Paul Sanford MD [address] [place] [address] Referring Physician Gastroenterology 01/14/23 Jt Waters MD [address] [place], [place] 201275 MD Dermatology 01/14/23 Jt Waters MD [address] [place] [address] Assigned Surgical Provider 01/17/23 01/28/24 Bhavik Segura PA-C [address] [place] [address] 322965 Physician Logging Crew Supervisor Gastroenterology 04/28/23 Paul Sanford MD [address] [place] [address] Assigned Gastroenterology Provider 07/18/23 02/04/25 Favian Mcknight MD [address] [place] [address] Dermatology 12/09/23 Favian Mcknight MD [address] [place] [address] Assigned Surgical Provider 01/29/24 02/04/25 Tatianna Horne [facility] 9 [place] [address] Assigned MTM Pharmacist 07/08/24 Lyudmila Baltazar, RN Home Infusion Meat Wrapper 08/29/24 Paul Sanford MD [facility][note 3]0 [place] [address] Home Infusion Following Provider Gastroenterology 09/07/24 Favian Mcknight MD [address] [place] [address] Assigned Dermatology Provider 02/05/25 documented as of this encounter
--- OUTSIDE RECORDS SUMMARY | 2025-06-18 12:01 | XMS_ITS | Encounter Summary ---
Author Organization [place] Address [address] [place] [address] Care Team Providers Care Publishing Manager Name Role Phone Sushant Schreiber MD Primary Care Provider No Ref-Primary, Physician Unavailable Cisco Caceres MD Unavailable Yung Rodriguez MD Unavailable Tatianna Horne [facility] Unavailable Billie Tucker RN Unavailable Unavailable Paul Sanford MD Unavailable Paul Sanford MD Unavailable [phone] Jt Waters MD Unavailable Jt Waters MD Unavailable Bhavik Segura PA-C Unavailable [phone] Paul Sanford MD Unavailable [phone] Favian Mcknight MD Unavailable [phone] Favian Mcknight MD Unavailable [phone] Tatianna Horne [facility] Unavailable Lyudmila Baltazar RN Unavailable Unavailabl e Paul Sanford MD Unavailable [phone] Favian Mcknight MD Unavailable [phone] Encounter Details Date Type Department Care Team (Late st Contact Info) Description 11/11/2023 [facility] Gastroenterology Clinic [address] [place] [address] Bin Allison Social History Tobacco Use Types Packs/Day [...] on file 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 Gender Identity Not on file Sexual Orientation Not on file documented as of this encounter Plan of Treatment Not on file documented as of this encounter Visit Diagnoses Not on filedocumented in this encounter Additional Health Concerns Infection Onset Date Last Indicated Resolved Time Rule Out C-difficile 06/13/2025 06/13/2025 025 5:32 PM CDT documented as of this encounter Care Teams Publishing Manager Relationship Specialty Start Date End Date Sushant Schreiber MD [address] [address] PCP - General Family Medicine 12/02/21 No Ref-Primary, Physician 12/02/21 Cisco Cacerse MD Fellow Gastroenterology 12/09/21 Yung Rodriguez MD [address] [facility] [address] [place] [address] Cardiovascular Disease 12/25/21 Tatianna Horne, [facility] [address] [place] [address] 574455 Pharmacist Pharmacist Paperhanger Assistant 02/06/22 Billie Tucker, RN Specialty Pit Manager Gastroenterology 12/10/22 Paul Sanford MD Gastroenterology 12/25/22 Paul Sanford MD Referring Physician Gastroenterology 01/14/23 Jt Waters MD [address] [place], [place] 498565 Dermatology 01/14/23 Jt Waters MD [address] [place] [address] Assigned Surgical Provider 01/17/23 01/28/24 Bhavik Segura PA-C [address] [place] [address] 104115 Physician A And P Technician Gastroenterology 04/28/23 Paul Sanford MD [address] [place] [address] Assigned Gastroenterology Provider 07/18/23 02/04/25 Favian Mcknight MD [address] [place] [address] Dermatology 12/09/23 Favian Mcknight MD [address] [place] [address] Assigned Surgical Provider 01/29/24 02/04/25 Tatianna Horne [facility] [address] [place] [address] Assigned MTM Pharmacist 07/08/24 Lyudmila Baltazar RN Home Infusion Machine Oiler 08/29/24 Paul Sanford MD Home Infusion Following Provider Gastroenterology 09/07/24 Favian Mcknight MD [address] [place] [address] Assigned Dermatology Provider 02/05/25 documented as of this encounter
--- OUTSIDE RECORDS SUMMARY | 2025-06-18 12:01 | XMS_ITS | Encounter Summary ---
Author Organization [place] Address [address] [place] [address] Care Team Providers Care Socket Puller Name Role Phone Sushant Schreiber MD Primary Care Provider [phone] No Ref-Primary, Physician Unavailable [phone] Cisco Caceres MD Unavailable [phone] Yung Rodriguez MD Unavailable Tatianna Horne [facility] Unavailable [phone] Billie Tucker RN Unavailable Unavailable Paul Sanford MD Unavailable [phone] Paul Sanford MD Unavailable [phone] Jt Waters MD Unavailable Jt Waters MD Unavailable Bhavik Segura PA-C Unavailable [phone] Paul Sanford MD Unavailable [phone] Favian Mcknight MD Unavailable [phone] Favian Mcknight MD Unavailable [phone] Tatianna Horne [facility] Unavailable Lyudmila Baltazar RN Unavailable Unavailabl e Paul Sanford MD Unavailable [phone] Favian Mcknight MD Unavailable [phone] Encounter Details Date Type Department Care Team (Late st Contact Info) Description 10/30/2023 [facility] [address] [place] [address] Diony Drummond Social History Tobacco [...] on file 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 Gender Identity Not on file Sexual Orientation Not on file documented as of this encounter Plan of Treatment Not on file documented as of this encounter Visit Diagnoses Not on filedocumented in this encounter Additional Health Concerns Infection Onset Date Last Indicated Resolved Time Rule Out C-difficile 06/13/2025 06/13/2025 025 5:32 PM CDT documented as of this encounter Care Teams Socket Puller Relationship Specialty Start Date End Date Sushant Schreiber MD [address] [address] PCP - General Family Medicine 12/02/21 No Ref-Primary, Physician 12/02/21 Cisco Caceres MD Fellow Gastroenterology 12/09/21 Yung Rodriguez MD [address] [facility] [address] [place] [id number] Cardiovascular Disease 12/25/21 Tatianna Horne, [facility] [address] [place] [address] [id number] Pharmacist Pharmacist Behavior Interventionist 02/06/22 Billie Tucker, RN Specialty Animal Physiology Teacher Gastroenterology 12/10/22 Paul Sanford MD Gastroenterology 12/25/22 Paul Sanford MD Referring Physician Gastroenterology 01/14/23 Jt Waters MD [address] [place], [place] 666225 Dermatology 01/14/23 Jt Waters MD [address] [place] [address] Assigned Surgical Provider 01/17/23 01/28/24 Bhavik Segura PA-C [address] [place] [address] [id number] Physician Infrastructure Tech Gastroenterology 04/28/23 Paul Sanford MD [address] [place] [address] Assigned Gastroenterology Provider 07/18/23 02/04/25 Favian Mcknight MD [address] [place] [address] Dermatology 12/09/23 Favian Mcknight MD [address] [place] [address] Assigned Surgical Provider 01/29/24 02/04/25 Tatianna Horne [facility] [address] [place] [address] Assigned MTM Pharmacist 07/08/24 Lyudmila Baltazar RN Home Infusion Computer Network Support Specialist 08/29/24 Paul Sanford MD Home Infusion Following Provider Gastroenterology 09/07/24 Favian Mcknight MD [address] [place] [address] Assigned Dermatology Provider 02/05/25 documented as of this encounter
--- OUTSIDE RECORDS SUMMARY | 2025-06-18 12:01 | XMS_ITS | Encounter Summary ---
Author Organization [place] Address [address] [place] [address] Care Team Providers Care Mat Machine Operator Name Role Phone Sushant Schreiber MD Primary Care Provider [phone] No Ref-Primary, Physician Unavailable Cisco Caceres MD Unavailable [phone] Yung Rodriguez MD Unavailable Tatianna Horne [facility] Unavailable Billie Tucker RN Unavailable Unavailable Paul Sanford MD Unavailable Paul Sanford MD Unavailable [phone] Jt Waters MD Unavailable Bhavik Segura PA-C Unavailable [phone] Favian Mcknight MD Unavailable [phone] Tatianna Horne [facility] Unavailable Lyudmila Baltazar RN Unavailable [facility] Paul Sanford MD Unavailable Favian Mcknight MD Unavailable [phone] Reason for Visit * Reason Onset Date Comments Refill Request 05/25/2025 Encounter Details Date Type Department Care Team (Late st Contact Info) Description 05/25/2025 Refill [facility] [address] [facility] 2nd [place] [address] Tatianna Horne, [facility] [address] [place] [address] Refill Request Social History Tobacco Use Types Packs/Day Years [...] on file Legal 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 Mcintyre/Juvenal Next provider visit: not on file Last labs completed: 03/2025 Lab frequency: every 3 months - standing labs available until 10/2025 Next labs due: 06/2025 Last TB screenin01/2024 Azathioprine refilled per CPA with Dr. Sanford. Demetri is also due for MTM follow- up, will reach out via [employer] to provide reminders. Limited supply given since he does not have follow-up on file. documented in this encounter Plan of Treatment Not on file documented as of this encounter Visit Diagnoses Diagnosis Crohn's disease of both small and large intestine with other complication (H)- Primary documented in this encounter Care Teams Mat Machine Operator Relationship Specialty Start Date End Date Sushant Schreiber MD [facility] [address] [place] [address] PCP - General Family Medicine 12/02/21 No Ref-Primary, Physician 12/02/21 Cisco Caceres MD Fellow Gastroenterology 12/09/21 Yung Rodriguez MD [address] [facility] [address] [place] [address] Cardiovascular Disease 12/25/21 [facility] [address] [place] [address] Pharmacist Pharmacist Traditional Chinese Herbalist 02/06/22 Billie Tucker, RN Specialty Heating And Air Conditioning Mechanic Gastroenterology 12/10/22 Paul Sanford MD Gastroenterology 12/25/22 Paul Sanford MD Referring Physician Gastroenterology 01/14/23 Jt Waters MD [address] [place] [address] [id number] Dermatology 01/14/23 Bhavik Segura [facility] [address] [place] [address] [phone] Physician Bottling Line Attendant Gastroenterology 04/28/23 Favian Mcknight MD [address] [place] [address] [id number] Dermatology 12/09/23 [facility] [address] [place] [address] [phone] Assigned MTM Pharmacist 07/08/24 Lyudmila Baltazar, RN Home Infusion Electronic Game Developer 08/29/24 Paul Sanford MD Home Infusion Following Provider Gastroenterology 09/07/24 Favian Mcknight MD [address] [place] [address] Assigned Dermatology Provider 02/05/25 documented as of this encounter
--- OUTSIDE RECORDS SUMMARY | 2025-06-18 12:01 | XMS_ITS | Encounter Summary ---
Author Organization [place] Address [address] [place] [address] Care Team Providers Care Television Service Engineer Name Role Phone Sushant Schreiber MD Primary Care Provider [phone] No Ref-Primary, Physician Unavailable Cisco Caceres MD Unavailable Yung Rdoriguez MD Unavailable Tatianna Horne [facility] Unavailable Billie Tucker RN Unavailable Unavailable Paul Sanford MD Unavailable Paul Sanford MD Unavailable Jt Waters MD Unavailable Bhavik Segura PA-C Unavailable [phone] Favian Mcknight MD Unavailable [phone] Tatianna Horne [facility] Unavailable Lyudmila Baltazar RN Unavailable Unavailabl e Paul Sanford MD Unavailable [phone] Favian Mcknight MD Unavailable [phone] Encounter Details Date Type Department Care Team (Latest Contact Info) Description 06/13/2025 Travel Social History Tobacco Use Types Packs/Day Years [...] Answer Date Recorded Do you have housing? 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 Gender Identity Not on file Sexual Orientation Not on file documented as of this encounter Plan of Treatment Not on file documented as of this encounter Visit Diagnoses Not on filedocumented in this encounter Additional Health Concerns Infection Onset Date Last Indicated Resolved Time Rule Out C-difficile 06/13/2025 06/13/2025 025 5:32 PM CDT documented as of this encounter Care Teams Television Service Engineer Relationship Specialty Start Date End Date Sushant Schreiber MD [facility] - [address] [address] PCP - General Family Medicine 12/02/21 No Ref-Primary, Physician 12/02/21 Cisco Caceres MD Fellow Gastroenterology 12/09/21 Yung Rodriguez MD [address] [id number] Cardiovascular Disease 12/25/21 Tatianna Horne, [facility] [address] [place] [address] [phone] Pharmacist Pharmacist Direct Sales Representative 02/06/22 Billie Tucker, RN Specialty Rehabilitation Counsellor Gastroenterology 12/10/22 Paul Sanford MD Gastroenterology 12/25/22 Paul Sanford MD Referring Physician Gastroenterology 01/14/23 Jt Waters MD [address] [place] [address] 300695 Dermatology 01/14/23 Bhavik Segura PA-C [address] [place] [address] 133015 Physician Paralegal Legal Secretary Gastroenterology 04/28/23 Favian Mcknight MD [address] [place] [address] Dermatology 12/09/23 Tatianna Horne [facility] [address] [place] [address] Assigned MTM Pharmacist 07/08/24 Lyudmila Baltazar, RN Home Infusion Tents Assembler 08/29/24 Paul Sanford MD Home Infusion Following Provider Gastroenterology 09/07/24 Favian Mcknight MD [address] [place] [address] Assigned Dermatology Provider 02/05/25 documented as of this encounter
--- OUTSIDE RECORDS SUMMARY | 2025-06-18 12:02 | XMS_ITS | Encounter Summary ---
Author Organization [place] Address [address] [place] [address] Care Team Providers Care Supervisor Mapping Name Role Phone Sushant Schreiber MD Primary Care Provider No Ref-Primary, Physician Unavailable [phone] Cisco Caceres MD Unavailable [phone] Sabiha Hogan APRN AEROSPACE ASSEMBLER Unavailable [phone] Yung Rodriguez MD Unavailable Tatianna Horne [facility] Unavailable [phone] Tatianna Horne [facility] Unavailable [phone] Billie Tucker RN Unavailable Unavailable [place]-[facility] Unavailable Paul Sanford MD Unavailable [phone] Paul Sanford MD Unavailable [phone] Jt Wtaers MD Unavailable Jt Waters MD Unavailable Bhavik Segura-C Unavailable [phone] Paul Sanford MD Unavailable [phone] Favian Mcknight MD Unavailable [phone] Favian Mcknight MD Unavailable [phone] Tatianna Horne [facility] Unavailable [phone] Lyudmila Baltazar RN Unavailable Unavailabl e Paul Sanford MD Unavailable Favian Mcknight MD Unavailable Encounter Details Date Type Department Care Team (Late st Contact Info) Description 10/08/2022 [facility] Medical Advice [facility] Gastroenterology Clinic [address] 4th [place] [address] Billie Tucker RN Social History [...] file 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 Gender Identity Not on file Sexual Orientation Not on file documented as of this encounter Plan of Treatment Not on file documented as of this encounter Visit Diagnoses Not on filedocumented in this encounter Additional Health Concerns Infection Onset Date Last Indicated Resolved Time Rule Out C-difficile 06/13/2025 06/13/2025 025 5:32 PM CDT documented as of this encounter Care Teams Supervisor Mapping Relationship Specialty Start Date End Date Sushant Schreiber MD [facility] & [address] [address] PCP - General Family Medicine 12/02/21 No Ref-Primary, Physician 12/02/21 Cisco Caceres MD Fellow Gastroenterology 12/09/21 Sabiha Hogan APRN AEROSPACE ASSEMBLER [address] [place] [address] Assigned Heart and Vascular Provider 12/15/21 02/13/23 Yung Rodriguez MD [address] [facility] [address] [place] [address] Cardiovascular Disease 12/25/21 Tatianna Horne, [facility] [address] [place] [address] Pharmacist Pharmacist Patient Care Technician Instructor 02/06/22 [facility] [address] [place] [address] Assigned MTM Pharmacist 08/13/22 Billie Tucker, RN Specialty Arc Welder Apprentice Gastroenterology 12/10/22 [place] [facility] [address] [place] [address] Physician Valve Assembler Dermatology 12/25/22 01/13/23 Paul Sanford MD [address] [place] [address] Gastroenterology 12/25/22 Paul Sanford MD [address] [place] [address] Referring Physician Gastroenterology 01/14/23 Jt Waters MD [address] [place] [address] Dermatology 01/14/23 Jt Waters MD [address] [place] [address] Assigned Surgical Provider 01/17/23 01/28/24 Bhavik Segura PA-C [address] [place] [address] [phone] Physician Valve Assembler Gastroenterology 04/28/23 Paul Sanford MD [address] [place] [address] 472105 Assigned Gastroenterology Provider 07/18/23 02/04/25 Favian Mcknight MD [address] [place] [address] [id number] MD Dermatology 12/09/23 Favian Mcknight MD [address] [place] [address] 286105 Assigned Surgical Provider 01/29/24 02/04/25 Tatianna Horne [facility] [address] [place] [address] [phone] Assigned MTM Pharmacist 07/08/24 Lyudmila Baltazar, RN Home Infusion Dredge Boat Engineer 08/29/24 Paul Sanford MD [address] [place] [address] Home Infusion Following Provider Gastroenterology 09/07/24 Favian Mcknight MD [address] [place] [address] [id number] Assigned Dermatology Provider 02/05/25 documented as of this encounter
--- OUTSIDE RECORDS SUMMARY | 2025-06-18 12:02 | XMS_ITS | Clinical Summary ---
Author Organization [facility] Address [address] [place] [address] Care Team Providers Care Facilities Painter Name Role Phone Sushant Schreiber MD Primary Care Provider No Ref-Primary, Physician Unavailable Cisco Wooten MD Unavailable Yung Rodriguez MD Unavailable Tatianna Horne [facility] Unavailable Billie Tucker RN Unavailable Unavailable Megha Sanford MD Unavailable Megha Sanford MD Unavailable Jt Waters MD Unavailable Bhavik Segura PA-C Unavailable [phone] Favian Mcknight MD Unavailable [phone] Tatianna Horne [facility] Unavailable Lyudmila Baltazar RN Unavailable Unavailabl e Megha Sanford MD Unavailable Favian Mcknight MD Unavailable [phone] Allergies Active Allergy Reactions Criticality Noted Date Comments Hydrocodone-Acetaminophen Nausea and Vomiting Low 0 04/17/2022 Oxycodone Nausea and Vomiting 12/04/2021 Medications acetaminophen (TYLENOL) 325 MG tablet Take 325-650 mg by mouth 3 times daily as needed for mild pain, fever or headaches Active inFLIXimab-dyyb (INFLECTRA) 1,300 mg in sodium chloride 0.9 % 500 mL via gravity infusionIndicat ions:Crohn's disease of both small and large intestine with other complication (H) Infuse 1,300 mg over 1 hours into the vein once every eight weeks. When complete, flush bag with 20 mL NS to flush tubing. 06/16 Ok to resume following hospitalization men [id number] mL 5 11:59 PM CDT 2024 Active acetaminophen (TYLENOL) 325 MG tabletIndicatio ns:Crohn's disease of both small and large intestine with other complication (H) Take 2 tablets (650 mg) by mouth once every eight weeks. Administer 30 minutes prior to infusion 12 tablet 5 11:59 PM CDT 024 2024 Active diphenhydrAMINE (BENADRYL) 25 MG capsuleIndicati ons:Crohn's disease of both small and large intestine with other complication (H) Take 2 capsules (50 mg) by mouth once every eight weeks. Administer 30 minutes prior to infusion 12 capsule 5 11:59 PM CDT 2024 Active methylPREDNISol one Na Suc (PF) (solu-MEDROL) 40 mg in sodium chloride 0.9 % 4 mL injectionIndica tions:Crohn's disease of both small and large intestine with other complication (H) Inject 40 mg over 3-5 minutes into the vein via push once every eight weeks. Administer 30 minutes prior to infusion [id number] mL 5 11:59 PM CDT 024 2024 Active sodium chloride, PF, 0.9% PF flushIndication s:Crohn's disease of both small and large intestine with other complication (H) Inject 10 mLs into the vein as needed for other (infusion reaction). For RN use only as needed for infusion reaction [id number] mL 5 11:59 PM CDT 024 2024 Active diphenhydrAMINE (BENADRYL) 50 MG/ML injectionIndica tions:Crohn's disease of both small and large intestine with other complication (H) Inject 1 mL (50 mg) over 3-5 minutes into the vein via push as needed for other (infusion reaction). For RN use only. Draw up in a syringe and administer IV push. Discard remainder of vial. 13929 mL 5 11:59 PM CDT 024 2024 Active EPINEPHrine (ANY BX GENERIC EQUIV) [...] time in 5-15 minutes if symptoms persist. [id number] mL 5 11:59 PM CDT 024 2024 Active sodium chloride 0.9% infusionIndicat ions:Crohn's disease of both small and large intestine with other complication (H) Infuse 500 mLs into the vein as needed for other (infusion reaction). In case of mild reaction, administer via gravity at 20 mL/hr to keep vein open. In case of severe reaction, administer via gravity wide open on prime setting. [id number] mL 5 11:59 PM AUTOMOBILE MECHANIC HELPER 024 2025 Active methylPREDNISol one Na Suc, PF, (SOLU-MEDROL) 125 mg/2 mL injectionIndica tions:Crohn's disease of both small and large intestine with other complication (H) Inject 2 mLs (125 mg) over 3-5 minutes into the vein via push as needed (infusion reaction). For RN use only. Reconstitute vial. Draw up methylPREDNISolone in a syringe and administer. Discard remainder of vial. [id number] mL 024 2024 Active sodium chloride, PF, 0.9% PF flushIndication s:Crohn's disease of both small and large intestine with other complication (H) Inject 10 mLs into the vein as needed for line flush. Flush IV before and after medication administration as directed and/or at least every 12 hours. [id number] mL 5 11:59 PM CDT 2024 Active Emergency Supply Kit, PIV,Indications :Crohn's disease of both small and large intestine with other complication (H) Patient use for emergency only. Contents: 3 sodium chloride 0.9% flushes, 1 IV start kit, 1 microclave ext set 14, 1 each IV Cath 22 G/1 and 24G/3/4, 6 alcohol prep pads, 4 nitrile gloves (med). Call to reorder. [id number] kit 024 2024 Active cetirizine (ZYRTEC) 10 MG tabletIndicatio ns:Urticaria TAKE ONE PILL (10MG DAILY) FOR HIVES. IF NOT CONTROLLING YOUR HIVES, START TAKING ONE PILL TWICE DAILY (MORNING AND EVENING). 60 tablet 2 025 Active azaTHIOprine (IMURAN) 50 MG tabletIndicatio ns:Crohn's disease of both small and large intestine with other complication (H) Take 4 tablets (200 mg) by mouth daily. 360 tablet 025 Active amphetamine-dex troamphetamine (ADDERALL XR) 20 MG 24 hr capsule Take 20 mg by mouth daily as needed. Active famotidine (PEPCID) 20 MG tabletIndicatio ns:Crohn's disease of colon with complication (H) Take 1 tablet (20 mg) by mouth 2 times daily as needed. 60 tablet 025 Active simethicone (MYLICON) 80 MG chewable tabletIndicatio ns:Crohn's disease of colon with complication (H) Take 1 tablet (80 mg) by mouth every 6 hours as needed for cramping. 30 tablet 025 Active nitazoxanide (ALINIA) 500 MG tabletIndicatio ns:Intra-Abdomi nal Infection Take 1 tablet (500 mg) by mouth every 12 hours for 12 days. 24 tablet 025 2024 Active azaTHIOprine (IMURAN) 50 MG tabletIndicatio ns:Crohn's disease of both small and large intestine with other complication (H) Take 4 tablets (200 mg) by mouth daily for 4 days. 16 tablet 024 2024 Disconti nued(Reo rder (No AVS)) Active Problems Problem Noted Date Diagnosed Date Crohn's disease of colon with complication 06/13 Back injury 03/23/2023 Chronic left-sided low back pain without sciatic a 02/27/2022 Crohn's disease of both small and large intestin e 01/28/2022 Pericardial effusion 12/03/2021 CARDIOVASCULAR SCREENING; LDL GOAL LESS THAN 160 09/15/2010 Encounters Date Type Department Care Team Description 06/15/2025 Home Infusion [facility] [address] [place] [phone] Raiza Singh, JANELL 06/13/2025 8:58 AM CDT - 06/15/2025 3:00 PM CDT Hospital Encounter [facility] [address] [place] [address] Clemente Mensah MD Kriz, Clemente Cunningham, Crohn's disease of colon with complication (H) (Primary Dx) Discharge Disposition: Home or Self Care 06/13/2025 Travel 06/06/2025 2:00 PM CDT Home Care Visit [facility] [address] [phone] Tatianna [facility] RN 06/01/2025 Telephone [facility] [address] [place] [phone] Mohsen Cortes MA 05/25/2025 MyC Medical Advice [facility] [address] [place] [address] [address] [place] [phone] Tatianna Horne [facility] 05/25/2025 Refill [facility] [address] [phone] Tatianna Horne [facility] Refill Request 05/24/2025 Telephone [facility] [address] [place] [phone] Ashley Verduzco, JANELL 04/11/2025 1:00 PM CDT Home Care Visit [facility] [address] [place] [phone] Tatianna [facility] RN 04/11/2025 Results Follow-Up [facility] [address] [phone] Megha [facility] MD Subj: Message about your results 04/11/2025 Home Infusion [facility] [address] [place] [phone] Navjot Mantilla RPH 04/07/2025 MyC Medical Advice [facility] Gastroenterology [address] [phone] Jose Reyna, RN 04/07/2025 Documentation Only [facility] [address] [phone] Jose Reyna, RN 04/05/2025 Home Infusion [facility] [address] [place] [phone] Violet Zamudio RPH from Last 3 Months Family History Medical [...] in an abandoned building, in an overnight halfway, or couch-surfing.) Yes 06/13/2025 Are you worried [...] on file 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 Gender Identity Not on file Sexual [...] Mass Index 37.04 06/13/2025 2:51 PM CDT Plan of Treatment Health Maintenance Due Date Last Done Comments ADVANCE CARE PLANNING 1990 ANNUAL REVIEW OF HM ORDERS 1988 CT COLONOGRAPHY 1988 FIT 1988 FLEX SIG 1988 URINE DRUG SCREEN 1988 sDNA (Cologuard) 1988 HEPATITIS B VACCINE (2 of 3 - 3-dose series) 04/25/2002 03/28/2002 YEARLY PREVENTIVE VISIT 06/07/2005 06/07/2004 PNEUMOCOCCAL VACCINE: PEDIATRICS (0 to 5 YEARS) AND AT-RISK PATIENTS (6 to 49 YEARS) (1 of 2 - PCV) 2007 ZOSTER VACCINE (1 of 2) 2007 COVID-19 VACCINE (2 - Moderna risk series) 08/27/2021 07/30/2021, 07/02/2021 PHQ-2 (once per calendar year) 2024 12/08/2023, 12/09/2022, 04/01/2022, Additional history exists INFLUENZA VACCINE (#1) 2025 , 07/27/2012, 09/17/2010 COLONOSCOPY 09/29/2025 09/29/2023, 09/29/2023 COLORECTAL CANCER SCREENING 09/29/2025 DIABETES SCREENING 06/14/2028 06/14/2025, 0 06/13/2025, 12/08/2023, Additional history exists DTAP/TDAP/TD VACCINE (5 - Td or Tdap) 06/18/2030 06/18/2020, 01/14/2010, 01/14/2009, Additional history exists HEPATITIS C SCREENING Completed 01/20/2024 , 08/16/2021, 08/16/2021 HIV SCREENING Completed 01/20/2024, 06/29/2020 HPV VACCINE (No Doses Required) Completed MENINGITIS VACCINE Aged Out No longer eligible based on patient's age to complete this topic Procedures Procedure Name Priority Date/Time Associated Diagnosis Comments CBC WITH PLATELETS Routine 06/14/2025 5: 49 AM CDT COMPREHENSIVE METABOLIC PANEL (LIMITED OCCURRENCES) Routine 06/14/2025 5:49 AM CDT CALPROTECTIN FECES STAT 06/13/2025 4: 18 PM CDT FOCUSED ENTERIC PATHOGEN PANEL BY PCR STAT 06/13/2025 1:56 PM CDT C. DIFFICILE TOXIN B PCR WITH REFLEX TO C. DIFFICILE EIA STAT 06/13/2025 1:[address] ABDOMEN PELVIS W CONTRAST STAT 06/13/2025 10:11 AM CDT CBC WITH PLATELETS AND DIFFERENTIAL (LIMITED OCCURRENCES) STAT 06/13/2025 9:39 AM CDT MANUAL DIFFERENTIAL STAT 06/13/2025 9 :39 AM CDT RBC AND PLATELET MORPHOLOGY STAT 06/13/2025 9:39 AM CDT CBC WITH PLATELETS AND DIFFERENTIAL STAT 06/13/2025 9:39 AM CDT CRP INFLAMMATION STAT 06/13/2025 9:39 AM CDT LIPASE STAT 06/13/2025 9:39 AM CDT COMPREHENSIVE METABOLIC PANEL (LIMITED OCCURRENCES) STAT 06/13/2025 9:39 AM CDT CBC WITH PLATELETS & DIFFERENTIAL Routine 04/11/2025 12:30 PM CDT Crohn's disease of both small and large intestine without complications (H) CBC WITH PLATELETS AND DIFFERENTIAL Routine 04/11/2025 12:30 PM CDT Crohn's disease of both small and large intestine without complications (H) CRP INFLAMMATION Routine 04/11/2025 12:3 0 PM CDT Crohn's disease of both small and large intestine without complications (H) HEPATIC FUNCTION PANEL Routine 04/11/2025 12:30 PM CDT Crohn's disease of both small and large intestine without complications (H) HIV ANTIGEN ANTIBODY COMBO Add-On 01/20/2024 10:09 AM AUTOMOBILE MECHANIC HELPER Crohn's disease of small intestine with abscess (H) High risk medication use HEPATITIS C ANTIBODY Add-On 01/20/2024 10:09 AM AUTOMOBILE MECHANIC HELPER Crohn's disease of small intestine with abscess (H) High risk medication use COLONOSCOPY Routine 09/29/2023 9:29 AM AUTOMOBILE MECHANIC HELPER from Last 3 Months or Most Recently Relevant to Health Maintenance Results * (ABNORMAL) Comprehensive Metabolic Panel (Limited Occurrences) (06/14/2025 5:49 AM CDT) Only the most recent of2 resultswithin the time period is included. Sodium 136 135 - 145 mmol/L 06/14/2025 6:11 AM CDT [facility] Potassium 3.8 3.4 - 5.3 mmol/L 06/14/2025 6:11 AM CDT [facility] Carbon Dioxide (CO2) 23 22 - 29 mmol/L 06/14/2025 6:11 AM CDT [facility] Anion Gap 11 7 - 15 mmol/L 06/14/2025 6:11 AM CDT [facility] Urea Nitrogen 11.8 6.0 - 20.0 mg/dL 06/14/2025 6:11 AM CDT [facility] Creatinine 0.85 0.67 - 1.17 mg/dL 06/14/2025 6:11 AM CDT [facility] GFR Estimate >90 >60 mL/min/1.7 3m2 06/14/2025 6:11 AM CDT [facility] Comment:eGFR calculated us2020 CKD-EPI equation. Calcium 8.4(L) 8.8 - 10.4 [...] BLOOD ORDERABLES Fin al Result [facility] [address] [facility], no room number) [place] [address], [facility] * (ABNORMAL) CBC with platelets (06/14/2025 5:49 [...] LAB - BLOOD ORDERABLES Fin al Result [facility] [address] Lab (1st floor, no room number) [place] [address], [facility] * (ABNORMAL) Calprotectin Feces (06/13/2025 [...] [facility] SPECIALTY CORE/PROT/ENDO [facility] Specialty Core/Prot/Endo [address] [facility] Unit [facility], [address] * (ABNORMAL) Focused Enteric Pathogen Panel by [...] PM CDT Assay performed using the FDA-cleared Coveroo GI Panel Mid from [employer] A negative result should not rule [...] by the Infectious Diseases Diagnostic Laboratory at [facility]. This laboratory is certified under the Clinical Laboratory Improvement Amendments of 1988 (CLIA-88) as qualified to perform high complexity clinical laboratory testing. Tiffanie Youssef PA-C LAB - MICRO GENERAL ORDERA BLES Final Result [facility] ID[facility]ORAT[facility] Inf. Diseases Diag. Lab [address] [facility], [address] [place] [address], [facility] * C. difficile Toxin B [...] LABORATORY - 06/13/2025 5:32 PM CDT The Hipscan Xpert C. difficile Assay, performed on the [employer], is a qualitative in vitro [...] ORDERA BLES Final Result [facility] IDD LABORATORY [facility] Inf. Diseases Diag. Lab [address] [facility], [address] [place] [email or web address]] * CT Abdomen Pelvis w Contrast (06/13/2025 [...] EXAM: CT ABDOMEN PELVIS W CONTRAST LOCATION: [facility] DATE: 06/13/2025 INDICATION: Diffuse pain, diarrhea, Crohn's. [...] EXAM: CT ABDOMEN PELVIS W CONTRAST LOCATION: [facility] DATE: 06/13/2025 INDICATION: Diffuse pain, diarrhea, Crohn's. [...] - BLOOD ORDERABLES Fi nal Result LABORATORY [facility] [address] Lab (1st floor, no room number) [address] [place] [address] * (ABNORMAL) RBC and Platelet Morphology (06/13/2025 9:39 AM CDT) Pathologist [facility] RBC Morphology Confirmed RBC Indices 06/13/2025 10:21 [...] - BLOOD ORDERABLES Fi nal Result LABORATORY [facility] Lab [address] [facility] Lab (1st floor, no room number) [address] * (ABNORMAL) CBC with platelets and differential (06/13/2025 9:39 AM CDT) Only the most recent of2 resultswithin the time period is included. WBC Count 15.2(H) 4.0 - 11.0 10e3/uL [...] - 15.0 % 06/13/2025 10:21 AM CDT [facility] Platelet Count 208 150 - 450 10e3/uL 06/13/2025 10:21 AM CDT [facility] Blood VENOUS LINE / Unknown Venipuncture / Unknown 06/13/2025 9:39 AM CDT 06/13/2025 9:44 AM CDT Clemente Mensah MD LAB - BLOOD ORDERABLES Fi nal Result [facility] Lab [address] [facility] Lab (1st floor, no room number) [address] * Lipase (06/13/2025 9:39 AM CDT) Pathologist [facility] Lipase 24 13 - 60 U/L 06/13/2025 10:11 AM CDT [facility] Blood VENOUS LINE / Unknown Venipuncture / Unknown 06/13/2025 9:39 AM CDT 06/13/2025 9:44 AM CDT Clemente Mensah MD LAB - BLOOD ORDERABLES Fi nal Result [facility] [address] [facility], no room number) [address] * (ABNORMAL) CRP inflammation (06/13/2025 9:39 AM CDT) Only the most recent of2 resultswithin the time period is included. CRP Inflammation 21.71(H) <5.00 mg/L 06/13/2025 10:11 AM CDT [facility] Blood VENOUS LINE / Unknown Venipuncture / Unknown 06/13/2025 9:39 AM CDT 06/13/2025 9:44 AM CDT Clemente Mensah MD LAB - BLOOD ORDERABLES Fi nal Result Performing Organization Address City/[facility]/ZIP Co de Phone Number LABORATORY [facility] [address] Lab (1st floor, no room number) [place] [address], [facility] * Hepatic function panel (04/11/2025 12:30 PM CDT) Pathologist [facility] Protein Total 7.3 6.4 - 8.3 g/dL 04/11/2025 4:42 PM CDT [facility] Albumin 4.3 3.5 - 5.2 g/dL 04/11/2025 4:42 PM CDT [facility] Bilirubin Total 0.4 <=1.2 mg/dL 04/11/2025 4:42 PM CDT [facility] Alkaline Phosphatase 125 40 - 150 U/L 04/11/2025 4:42 PM CDT [facility] AST 38 0 - 45 U/L 04/11/2025 4:42 PM CDT [facility] ALT 47 0 - 70 U/L 04/11/2025 4:42 PM CDT [facility] Bilirubin Direct 0.11 0.00 - 0.30 mg/dL 04/11/2025 4:42 PM CDT [facility] Comment:As of 25, refer ence ranges and trending lines may vary depending on the testing location. Blood BLOOD SPECIMEN / Unknown Venipuncture / Unknown 04/11/2025 12:30 PM CDT 04/11/2025 4:19 PM CDT us Megha Sanford MD LAB - BLOOD ORDERABLE S Final Result Performing Organization Address [facility]/ZIP Co de Phone Number LABORATORY [facility] [address] Lab (1st floor, no room number) [place] [address], [facility] * HIV Antigen Antibody Combo Storey (01/20/2024 10:09 AM AUTOMOBILE MECHANIC HELPER) [facility] HIV Antigen Antibody Combo Nonreactive Nonreactive 01/20/2024 10:07 PM AUTOMOBILE MECHANIC HELPER [facility] Comment:Negative HIV-1/-2 an tigen and antibody screening test results usually indicate the absence of HIV-1 and HIV-2 infection. However, such negative results do not rule-out acute HIV infection. If acute HIV-1 or HIV-2 infection is suspected, detection of HIV-1 or HIV-2 RNA is recommended. Blood STRUCTURE OF RIGHT UPPER LIMB / Unknown Venipuncture / Unknown 01/20/2024 10:09 AM AUTOMOBILE MECHANIC HELPER 01/20/2024 10:09 AM AUTOMOBILE MECHANIC HELPER Miguel Stoll MD LAB - BLOOD ORDERABLES Fi nal Result LABORATORY [facility] [place] [facility] [address] [facility], [address] [address], [facility] [phone] * Hepatitis C antibody (01/20/2024 10:09 AM AUTOMOBILE MECHANIC HELPER) [facility] Hepatitis C Antibody Nonreactive Nonreactive 01/20/2024 10:28 PM AUTOMOBILE MECHANIC HELPER LABORATORY Comment:A nonreactive screen ing test result [...] Unknown Venipuncture / Unknown 01/20/2024 10:09 AM AUTOMOBILE MECHANIC HELPER 01/20/2024 10:09 AM AUTOMOBILE MECHANIC HELPER Miguel Stoll MD LAB - BLOOD ORDERABLES Fi nal Result Performing Organization Address City/[facility]/ZIP Co de Phone Number LABORATORY [facility] [place] [facility] [address] [facility], [address] [address], [facility] [phone] * COLONOSCOPY (09/29/2023 9:29 AM AUTOMOBILE MECHANIC HELPER) [facility] COLONOSCOPY [facility] [address] [place] [address] [phone] Endoscopy Department Patient Name: Demetri Castillo Procedure [...] MEGHA SANFORD MD, Ashley Lopez RN, SKY LAMB Referring MD: MEGHA SANFORD [...] 12:00:16 PM RADIOLOGY RESULTS 09/29/2023 9:29 AM AUTOMOBILE MECHANIC HELPER us Megha Sanford MD PROCEDURES Final Result RADIOLOGY RESULTS from Last 3 Months or Most Recently Relevant to Health Maintenance [facility] COPAY * Guarantor: Demetri Castillo Account Type Relation to Patient Date of Phone Billing Address Medication Therapy Self [address] [place] [address] [facility] [employer] Advance Directives For more information, please contact: [phone] * Full Code (Latest Code Status on File) Date Activated Date Inactivated Comments 06/15/2025 12:27 PM Question Answer Comments Code status determined by: Discussion with patie nt/ legal decision maker * Full Code Date Activated Date Inactivated Comments 06/13/2025 11:43 AM 06/15/2025 12:27 PM All basic and advanced life-sustaining interventions are performed as appropriate Question Answer Comments Code status determined by: Discussion with patie nt/ legal decision maker * Full Code Date Activated Date Inactivated Comments 02/28/2022 4:20 [...] patie nt/ legal decision maker Care Teams Facilities Painter Relationship Specialty Start Date End Date Sushant Schreiber MD [facility] [address] [place] [address] PCP - General Family Medicine 12/02/21 No Ref-Primary, Physician 12/02/21 Cisco Wooten MD Fellow Gastroenterology 12/09/21 Yung Rodriguez MD [address] [id number] Cardiovascular Disease 12/25/21 Tatianna Horne, [facility] [address] [place] [address] [phone] Pharmacist Pharmacist Precision Inspector 02/06/22 Billie Tucker, JANELL Specialty Nutrition Associate Gastroenterology 12/10/22 Megha Sanford MD Gastroenterology 12/25/22 Megha Sanford MD Referring Physician Gastroenterology 01/14/23 Jt Waters MD [address] [place] [address] [phone] Dermatology 01/14/23 Bhavik Segura PA-C [address] [place] [address] [phone] Physician Egg Buyer Gastroenterology 04/28/23 Favian Mcknight MD [address] [place] [address] [phone] Dermatology 12/09/23 Tatianna Horne, [facility] [address] [place] [phone] Assigned MTM Pharmacist 07/08/24 Lyudmila Baltazar, RN Home Infusion Brake Liner 08/29/24 Megha Sanford MD Home Infusion Following Provider Gastroenterology 09/07/24 Favian Mcknight MD [address] [place] [phone] Assigned Dermatology Provider 02/05/25
--- OUTSIDE RECORDS SUMMARY | 2025-06-18 12:02 | XMS_ITS | Encounter Summary ---
Author Organization [place] Address [address] [place] [address] Care Team Providers Care Blueprint Cutter Name Role Phone Sushant Schreiber MD Primary Care Provider No Ref-Primary, Physician Unavailable Cisco Caceres MD Unavailable Yung Rodriguez MD Unavailable Tatianna Horne [facility] Unavailable Billie Tucker RN Unavailable Unavailable Paul Sanford MD Unavailable [phone] Paul Sanford MD Unavailable Jt Waters MD Unavailable Jt Waters MD Unavailable Bhavik Segura PA-C Unavailable [phone] Paul Sanford MD Unavailable [phone] Favian Mcknight MD Unavailable [phone] Favian Mcknight MD Unavailable [phone] Tatianna Horne [facility] Unavailable Lyudmila Baltazar RN Unavailable Unavailabl e Paul Sanford MD Unavailable [phone] Favian Mcknight MD Unavailable [phone] Encounter Details Date Type Department Care Team (Late st Contact Info) Description 09/15/2023 [facility] [address] [place] [address] Mckenzie Velázquez, JANELL Social History [...] on file 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 Gender Identity Not on file Sexual Orientation Not on file documented as of this encounter Plan of Treatment Not on file documented as of this encounter Visit Diagnoses Not on filedocumented in this encounter Additional Health Concerns Infection Onset Date Last Indicated Resolved Time Rule Out C-difficile 06/13/2025 06/13/2025 025 5:32 PM CDT documented as of this encounter Care Teams Blueprint Cutter Relationship Specialty Start Date End Date Sushant Schreiber MD [facility] - [address] [address] PCP - General Family Medicine 12/02/21 No Ref-Primary, Physician 12/02/21 Cisco Caceres MD Fellow Gastroenterology 12/09/21 Yung Rodriguez MD [address] [facility] [address] [place] [id number] Cardiovascular Disease 12/25/21 Tatianna Horne, [facility] [address] [place] [address] [id number] Pharmacist Pharmacist Pre Sales Technical Engineer 02/06/22 Billie Tucker, RN Specialty Line Operator Gastroenterology 12/10/22 Paul Sanford MD Gastroenterology 12/25/22 Paul Sanford MD Referring Physician Gastroenterology 01/14/23 Jt Waters MD [address] [place], [place] 029885 Dermatology 01/14/23 Jt Waters MD [address] [place] [address] Assigned Surgical Provider 01/17/23 01/28/24 Bhavik Segura PA-C [address] [place] [address] 922755 Physician Fast Food Worker Gastroenterology 04/28/23 Paul Sanford MD [address] [place] [address] Assigned Gastroenterology Provider 07/18/23 02/04/25 Favian Mcknight MD [address] [place] [address] Dermatology 12/09/23 Favian Mcknight MD [address] [place] [address] Assigned Surgical Provider 01/29/24 02/04/25 Tatianna Horne [facility] [address] [place] [address] Assigned MTM Pharmacist 07/08/24 Lyudmila Baltazar, RN Home Infusion Senior Director Creative Services 08/29/24 Paul Sanford MD Home Infusion Following Provider Gastroenterology 09/07/24 Favian Mcknight MD [address] [place] [address] Assigned Dermatology Provider 02/05/25 documented as of this encounter
--- OUTSIDE RECORDS SUMMARY | 2025-06-18 12:02 | XMS_ITS | Encounter Summary ---
Author Organization [facility] Address [address] [place] [address] Care Team Providers Care Mushroom Press Operator Name Role Phone Sushant Schreiber MD Primary Care Provider [phone] No Ref-Primary, Physician Unavailable Cisco Caceres MD Unavailable Yung Rodriguez MD Unavailable Tatianna Horne [facility] Unavailable Billie Tucker RN Unavailable Unavailable Paul Sanford MD Unavailable Paul Sanford MD Unavailable Jt Waters MD Unavailable Bhavik Segura PA-C Unavailable [phone] Favian Mcknight MD Unavailable [phone] Tatianna Horne [facility] Unavailable Lyudmila Baltazar RN Unavailable Unavailabl e Paul Sanford MD Unavailable Favian Mcknight MD Unavailable [phone] Encounter Details Date Type Department Care Team (Latest Contact Info) Description 04/11/2025 Results Follow-Up [facility] [address] [place] [address] Paul Sanford MD [address] [place] [address] Subj: Message about your results Social History Tobacco Use Types Packs/Day Years [...] on file 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 [address] [place], [place] 054165 Cardiovascular Disease 12/25/21 Tatianna Horen, [facility] [address] [place], [place] 3669[address] Pharmacist Pharmacist Public Health Teacher 02/06/22 Billie Tucker, RN Specialty Senior Mechanical Engineer Gastroenterology 12/10/22 Paul Sanford MD Gastroenterology 12/25/22 Paul Sanford MD Referring Physician Gastroenterology 01/14/23 Jt Waters MD [address] [place] [address] [id number] Dermatology 01/14/23 Bhavik Segura PA-C [address] [place] [address] Physician Auto Mechanic Supervisor Gastroenterology 04/28/23 Favian Mcknight MD [address] [place] [address] 247995 MD Dermatology 12/09/23 [facility] [address] [place] [address] Assigned MTM Pharmacist 07/08/24 Lyudmila Baltazar, RN Home Infusion Ehs Specialist 08/29/24 Paul Sanford MD Home Infusion Following Provider Gastroenterology 09/07/24 Favian Mcknight MD [address] [place] [address] 427245 Assigned Dermatology Provider 02/05/25 documented as of this encounter
--- OUTSIDE RECORDS SUMMARY | 2025-06-18 12:02 | XMS_ITS | Encounter Summary ---
Author Organization [place] Address [address] [place] [address] Care Team Providers Care Electric Plater Name Role Phone Sushant Schreiber MD Primary Care Provider No Ref-Primary, Physician Unavailable [phone] Cisco Caceres MD Unavailable Yung Rodriguez MD Unavailable Tatianna Horne [facility] Unavailable Billie Tucker RN Unavailable Unavailable Paul Sanford MD Unavailable Paul Sanford MD Unavailable [phone] Jt Waters MD Unavailable Jt Waters MD Unavailable Bhavik Segura PA-C Unavailable [phone] Paul Sanford MD Unavailable [phone] Favian Mcknight MD Unavailable [phone] Favian Mcknight MD Unavailable [phone] Tatianna Horne [facility] Unavailable Lyudmila Baltazar RN Unavailable Unavailabl e Paul Sanford MD Unavailable [phone] Favian Mcknight MD Unavailable [phone] Encounter Details Date Type Department Care Team (Late st Contact Info) Description 09/21/2023 [facility] [address] [place] [address] Isabel Patricia, RN Social History [...] on file 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 Gender Identity Not on file Sexual Orientation Not on file documented as of this encounter Plan of Treatment Not on file documented as of this encounter Visit Diagnoses Not on filedocumented in this encounter Additional Health Concerns Infection Onset Date Last Indicated Resolved Time Rule Out C-difficile 06/13/2025 06/13/2025 025 5:32 PM CDT documented as of this encounter Care Teams Electric Plater Relationship Specialty Start Date End Date Sushant Schreiber MD [facility] - [address] [address] PCP - General Family Medicine 12/02/21 No Ref-Primary, Physician 12/02/21 Cisco Caceres MD Fellow Gastroenterology 12/09/21 Yung Rodriguez MD [address] [facility] [address] [place], [place] 072635 Cardiovascular Disease 12/25/21 Tatianna Horne, [facility] [address] [place] [address] [phone] Pharmacist Pharmacist Decorator Inspector 02/06/22 Billie Tucker, RN Specialty Marketing Operations Coordinator Gastroenterology 12/10/22 Paul Sanford MD Gastroenterology 12/25/22 Paul Sanford MD Referring Physician Gastroenterology 01/14/23 Jt Waters MD [address] [place], [place] 101615 Dermatology 01/14/23 Jt Waters MD [address] [place], [place] 300665 Assigned Surgical Provider 01/17/23 01/28/24 Bhaivk Segura PA-C [address] [place] [address] [id number] Physician Six Color Press Operator Gastroenterology 04/28/23 Paul Sanford MD [address] [place] [address] Assigned Gastroenterology Provider 07/18/23 02/04/25 Favian Mcknight MD [address] [place] [address] Dermatology 12/09/23 Favian Mcknight MD [address] [place] [address] Assigned Surgical Provider 01/29/24 02/04/25 Tatianna Horne, [facility] [address] [place] [address] Assigned MTM Pharmacist 07/08/24 Lyudmila Baltazar, RN Home Infusion Port Traffic Manager 08/29/24 Paul Sanford MD Home Infusion Following Provider Gastroenterology 09/07/24 Favian Mcknight MD [address] [place] [address] Assigned Dermatology Provider 02/05/25 documented as of this encounter
--- OUTSIDE RECORDS SUMMARY | 2025-06-18 12:02 | XMS_ITS | Encounter Summary ---
Author Organization [facility] Address [address] [place] [address] Care Team Providers Care Kaiawhina Kura [place] Maori Name Role Phone Sushant Schreiber MD Primary Care Provider No Ref-Primary, Physician Unavailable Cisco Caceres MD Unavailable Yung Rodriguez MD Unavailable Tatianna Horne [facility] Unavailable [phone] Billie Tucker RN Unavailable Unavailable Paul Sanford MD Unavailable Paul Sanford MD Unavailable Jt Waters MD Unavailable Jt Waters MD Unavailable Bhavik Segura PA-C Unavailable [phone] Paul Sanford MD Unavailable [phone] Favian Mcknight MD Unavailable [phone] Favian Mcknight MD Unavailable Tatianna Horne [facility] Unavailable Lyudmila Baltazar RN Unavailable Unavailabl e Paul Sanford MD Unavailable [phone] Favina Mcknight MD Unavailable [phone] Encounter Details Date Type Department Care Team (Late st Contact Info) Description 09/15/2023 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 Gender Identity Not on file Sexual Orientation Not on file documented as of this encounter Plan of Treatment Not on file documented as of this encounter Visit Diagnoses Not on filedocumented in this encounter Additional Health Concerns Infection Onset Date Last Indicated Resolved Time Rule Out C-difficile 06/13/2025 06/13/2025 025 5:32 PM CDT documented as of this encounter Care Teams Kaiawhina Kura [place] Maori Relationship Specialty Start Date End Date Sushant Schreiber MD [facility] - [address] [address] PCP - General Family Medicine 12/02/21 No Ref-Primary, Physician 12/02/21 Cisco Caceres MD Fellow Gastroenterology 12/09/21 Yung Rodriguez MD [address] [facility] [address] [place] [id number] Cardiovascular Disease 12/25/21 Tatianna Horne, [facility] [address] [place] [address] [phone] Pharmacist Pharmacist Technical Fellow 02/06/22 Billie Tucker, RN Specialty Process Control Tech Gastroenterology 12/10/22 Paul Sanford MD Gastroenterology 12/25/22 Paul Sanford MD Referring Physician Gastroenterology 01/14/23 Jt Waters MD [address] [place], [place] 183825 Dermatology 01/14/23 Jt Waters MD [address] [place] [address] Assigned Surgical Provider 01/17/23 01/28/24 Bhavik Segura PA-C [address] [place] [address] 544405 Physician Facility Maintenance Worker Gastroenterology 04/28/23 Paul Sanford MD [address] [place] [address] Assigned Gastroenterology Provider 07/18/23 02/04/25 Favian Mcknight MD [address] [place] [address] Dermatology 12/09/23 Favian Mcknight MD [address] [place] [address] Assigned Surgical Provider 01/29/24 02/04/25 Tatianna Horne [facility] [address] [place] [address] Assigned MTM Pharmacist 07/08/24 Lyudmila Baltazar, RN Home Infusion Outsoles Channel Opener 08/29/24 Paul Sanford MD Home Infusion Following Provider Gastroenterology 09/07/24 Favian Mcknight MD [address] [place] [address] Assigned Dermatology Provider 02/05/25 documented as of this encounter
--- OUTSIDE RECORDS SUMMARY | 2025-06-18 12:02 | XMS_ITS | Encounter Summary ---
Author Organization [facility] Address [address] [place] [address] Care Team Providers Care Document Management Consultant Name Role Phone Sushant Schreiber MD Primary Care Provider [phone] No Ref-Primary, Physician Unavailable [phone] Cisco Caceres MD Unavailable Yung Rodriguez MD Unavailable Tatianna Horne [facility] Unavailable Billie Tucker RN Unavailable Unavailable Paul Sanford MD Unavailable Paul Sanford MD Unavailable [phone] Jt Waters MD Unavailable Jt Waters MD Unavailable Bhavik Segura PA-C Unavailable [phone] Paul Sanford MD Unavailable [phone] Favian Mcknight MD Unavailable [phone] Favian Mcknight MD Unavailable [phone] Tatianna Horne [facility] Unavailable [phone] Lyudmila Baltazar RN Unavailable Unavailabl e Paul Sanford MD Unavailable [phone] Favian Mcknight MD Unavailable [phone] Encounter Details Date Type Department Care Team (Late st Contact Info) Description 11/13/2023 [facility] Clinic [address] [place] [address] Mckenzie Lim RN Social History [...] on file 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 - [address] [address] PCP - General Family Medicine 12/02/21 No Ref-Primary, Physician 12/02/21 Cisco Caceres MD Fellow Gastroenterology 12/09/21 Yung Rodriguez MD [address] [facility] [address] [place] 502[address] Cardiovascular Disease 12/25/21 Tatianna Horne, [facility] [address] [place] [address] 824245 Pharmacist Pharmacist Fire Inspector 02/06/22 Billie Tucker, RN Specialty Mattress Specialist Gastroenterology 12/10/22 Paul Sanford MD Gastroenterology 12/25/22 Paul Sanford MD Referring Physician Gastroenterology 01/14/23 Jt Waters MD [address] [place], [place] 948115 Dermatology 01/14/23 Jt Waters MD [address] [place] [address] Assigned Surgical Provider 01/17/23 01/28/24 Bhavik Segura PA-C [address] [place] [address] [phone] Physician Supervisor Advice Gastroenterology 04/28/23 Paul Sanford MD [address] [place] [address] Assigned Gastroenterology Provider 07/18/23 02/04/25 Favian Mcknight MD [address] [place] [address] Dermatology 12/09/23 Favian Mcknight MD [address] [place] [address] Assigned Surgical Provider 01/29/24 02/04/25 Tatianna Horne [facility] [address] [place] [address] Assigned MTM Pharmacist 07/08/24 Lyudmila Baltazar, RN Home Infusion Supervisor In Charge 08/29/24 Paul Sanford MD Home Infusion Following Provider Gastroenterology 09/07/24 Favian Mcknight MD [address] [place] [address] Assigned Dermatology Provider 02/05/25 documented as of this encounter
--- OUTSIDE RECORDS SUMMARY | 2025-06-18 12:02 | XMS_ITS | Encounter Summary ---
Author Organization [place] Address [address] [place] [address] Care Team Providers Care Lining Repairer Name Role Phone Sushant Schreiber MD Primary Care Provider No Ref-Primary, Physician Unavailable [phone] Cisco Caceres MD Unavailable [phone] Yung Rodriguez MD Unavailable Taitanna Horne [facility] Unavailable Billie Tucker RN Unavailable Unavailable Paul Sanford MD Unavailable Paul Sanford MD Unavailable Jt Waters MD Unavailable Bhavik Segura PA-C Unavailable [phone] Favian Mcknight MD Unavailable [phone] Tatianna Horne [facility] Unavailable Lyudmila Baltazar RN Unavailable Unavailabl e Paul Sanford MD Unavailable [phone] Favian Mcknight MD Unavailable [phone] Encounter Details Date Type Department Care Team (Late st Contact Info) Description 04/07/2025 Jayme Forbes [facility] [address] 4th [place] [address] Jose Reyna, RN Social History Tobacco Use Types Packs/Day [...] on file 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 Demetri is taking 50 mg of oral Benadryl prior to [facility] infusions. Please update the therapy bina it says he only takes 25 mg. Thanks, Xuan [facility] Pharmacist documented in this encounter Plan of Treatment Not on file documented as of this encounter Visit Diagnoses Not on filedocumented in this encounter Additional Health Concerns Infection Onset Date Last Indicated Resolved Time Rule Out C-difficile 06/13/2025 06/13/2025 025 5:32 PM CDT documented as of this encounter Care Teams Lining Repairer Relationship Specialty Start Date End Date Sushant Schreiber MD [facility] - [address] [address] PCP - General Family Medicine 12/02/21 No Ref-Primary, Physician 12/02/21 Cisco Caceres MD Fellow Gastroenterology 12/09/21 Yung Rodriguez MD [address] [facility] [address] [place] [address] Cardiovascular Disease 12/25/21 Tatianna Horne, [facility] [address] [place] [address] Pharmacist Pharmacist Logistics Coordinator 02/06/22 Billie Tucker, RN Specialty Orthopedic Coder Gastroenterology 12/10/22 Paul Sanford MD Gastroenterology 12/25/22 Paul Sanford MD Referring Physician Gastroenterology 01/14/23 Jt Waters MD [address] [place] [address] 648625 Dermatology 01/14/23 Bhavik Segura PA-C [address] [place] [address] 190495 Physician Clinical Education Coordinator Gastroenterology 04/28/23 Favian Mcknight MD [address] [place] [address] 644605 Dermatology 12/09/23 [facility] [address] [place] [address] Assigned MTM Pharmacist 07/08/24 Lyudmila Baltazar, RN Home Infusion Diagnostic Medical Sonographer 08/29/24 Paul Sanford MD Home Infusion Following Provider Gastroenterology 09/07/24 Favian Mcknight MD [address] [place] [address] Assigned Dermatology Provider 02/05/25 documented as of this encounter
--- OUTSIDE RECORDS SUMMARY | 2025-06-18 12:02 | XMS_ITS | Encounter Summary ---
Author Organization [place] Address [address] [place] [address] Care Team Providers Care Consumer Loan Processor Name Role Phone Sushant Schreiber MD Primary Care Provider [phone] No Ref-Primary, Physician Unavailable Cisco Caceres MD Unavailable [phone] Yung Rodriguez MD Unavailable Tatianna Horne [facility] Unavailable Billie Tucker RN Unavailable Unavailable Paul Sanford MD Unavailable Paul Sanford MD Unavailable [phone] Jt Waters MD Unavailable Bhavik Segura PA-C Unavailable [phone] Paul Sanford MD Unavailable [phone] Favian Mcknight MD Unavailable [phone] Favian Mcknight MD Unavailable [phone] Tatianna Horne [facility] Unavailable Lyudmila Baltazar RN Un[facility] Paul Sanford MD Unavailable [phone] Favian Mcknight MD Unavailable [phone] Encounter Details Date Type Department Care Team (Late st Contact Info) Description 11/28/2024 [facility] [address] [phone] Denita Waddell LPN Social History Tobacco Use [...] file 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 Gender Identity Not on file Sexual Orientation Not on file documented as of this encounter Plan of Treatment Not on file documented as of this encounter Visit Diagnoses Not on filedocumented in this encounter Additional Health Concerns Infection Onset Date Last Indicated Resolved Time Rule Out C-difficile 06/13/2025 06/13/2025 025 5:32 PM CDT documented as of this encounter Care Teams Consumer Loan Processor Relationship Specialty Start Date End Date Sushant Schreiber MD [facility] & [address] [address] PCP - General Family Medicine 12/02/21 No Ref-Primary, Physician 12/02/21 Cisco Caceres MD Fellow Gastroenterology 12/09/21 Yung Rodriguez MD [address] [facility] [address] [place] 421015 Cardiovascular Disease 12/25/21 Tatianna Horne, [facility] [address] [place] [address] Pharmacist Pharmacist Barrel Assembler Helper 02/06/22 Billie Tucker, RN Specialty Agricultural Sciences Professor Gastroenterology 12/10/22 Paul Sanford MD Gastroenterology 12/25/22 Paul Sanford MD Referring Physician Gastroenterology 01/14/23 Jt Waters MD [address] [place] [address] 731995 Dermatology 01/14/23 Bhavik Segura PA-C [address] [place] [address] 175315 Physician Exploration Engineer Gastroenterology 04/28/23 Paul Sanford MD [address] [place] [address] Assigned Gastroenterology Provider 07/18/23 02/04/25 Favian Mcknight MD [address] [place] [address] Dermatology 12/09/23 Favian Mcknight MD [address] [place] [address] Assigned Surgical Provider 01/29/24 02/04/25 Tatianna Horne, [facility] [address] [place] [address] [phone] Assigned MTM Pharmacist 07/08/24 Lyudmila Baltazar RN Home Infusion Features Reporter 08/29/24 Paul Sanford MD Home Infusion Following Provider Gastroenterology 09/07/24 Favian Mcknight MD [address] [place] [address] Assigned Dermatology Provider 02/05/25 documented as of this encounter
--- OUTSIDE RECORDS SUMMARY | 2025-06-18 12:02 | XMS_ITS | Encounter Summary ---
Author Organization [facility] Address [address] [place] [address] 9[address]76 Care Team Providers Care Marine Geologist Name Role Phone Sushant Schreiber MD Primary Care Provider No Ref-Primary, Physician Unavailable Cisco Caceres MD Unavailable Yung Rodriguez MD Unavailable Tatianna Horne [facility] Unavailable Billie Tucker RN Unavailable Unavailable Paul Sanford MD Unavailable Paul Sanford MD Unavailable Jt Waters MD Unavailable Jt Waters MD Unavailable Bhavik Segura PA-C Unavailable [phone] Paul Sanford MD Unavailable [phone] Favian Mcknight MD Unavailable [phone] Favian Mcknight MD Unavailable [phone] Tatianna Horne [facility] Unavailable [phone] Lyudmila Baltazar RN Unavailable Unavailabl e Paul Sanford MD Unavailable [phone] Favian Mcknight MD Unavailable [phone] Encounter Details Date Type Department Care Team (Late st Contact Info) Description 09/16/2023 [facility] [address] [place] [address] Billie Tucker RN Social History [...] on file 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 Gender Identity Not on file Sexual Orientation Not on file documented as of this encounter Plan of Treatment Not on file documented as of this encounter Visit Diagnoses Not on filedocumented in this encounter Additional Health Concerns Infection Onset Date Last Indicated Resolved Time Rule Out C-difficile 06/13/2025 06/13/2025 025 5:32 PM CDT documented as of this encounter Care Teams Marine Geologist Relationship Specialty Start Date End Date Sushant Schreiber MD [facility] - [address] [address] PCP - General Family Medicine 12/02/21 No Ref-Primary, Physician 12/02/21 Cisco Caceres MD Fellow Gastroenterology 12/09/21 Yung Rodriguez MD [address] [facility] [address] [place] [id number] Cardiovascular Disease 12/25/21 Tatianna Horne, [facility] [address] [place] [address] [phone] Pharmacist Pharmacist Spiral Winding Machine Helper 02/06/22 Billie Tucker, RN Specialty Cdl Dedicated Truck Driver Gastroenterology 12/10/22 Paul Sanford MD Gastroenterology 12/25/22 Paul Sanford MD Referring Physician Gastroenterology 01/14/23 Jt Waters MD [address] [place], [place] [id number] Dermatology 01/14/23 Jt Waters MD [address] [place] [address] Assigned Surgical Provider 01/17/23 01/28/24 Bhavik Segura PA-C [address] [place] [address] [phone] Physician Argon Tester Gastroenterology 04/28/23 Paul Sanford MD [address] [place] [address] Assigned Gastroenterology Provider 07/18/23 02/04/25 Favian Mcknight MD [address] [place] [address] Dermatology 12/09/23 Favian Mcknight MD [address] [place] [address] Assigned Surgical Provider 01/29/24 02/04/25 Tatianna Horne [facility] [address] [place] [address] Assigned MTM Pharmacist 07/08/24 Lyudmila Baltazar, RN Home Infusion Coal Tower Operator 08/29/24 Paul Sanford MD Home Infusion Following Provider Gastroenterology 09/07/24 Favian Mcknight MD [address] [place] [address] Assigned Dermatology Provider 02/05/25 documented as of this encounter
--- OUTSIDE RECORDS SUMMARY | 2025-06-18 12:02 | XMS_ITS | Encounter Summary ---
Author Organization [place] Address [address] [place] [address] Care Team Providers Care Negotiations Director Name Role Phone Sushant Schreiber MD Primary Care Provider [phone] No Ref-Primary, Physician Unavailable [phone] Cisco Caceres MD Unavailable [phone] Sabiha Hogan APRN BRICK MASON Unavailable [phone] Yung Rodriguez MD Unavailable Tatianna Horne [facility] Unavailable [phone] Tatianna Horne [facility] Unavailable [phone] Billie Tucker RN Unavailable Unavailable [place]-C Unavailable Paul Sanford MD Unavailable [phone] Paul Sanford MD Unavailable [phone] Jt Waters MD Unavailable Jt Waters MD Unavailable Bhavik Segura-C Unavailable [phone] Paul Sanford MD Unavailable [phone] Favian Mcknight MD Unavailable [phone] Favian Mcknight MD Unavailable [phone] Tatianna Horne [facility] Unavailable [phone] Lyudmila Baltazar RN Unavailable Unavailabl e Paul Sanford MD Unavailable Favian Mcknight MD Unavailable [phone] Encounter Details Date Type Department Care Team (Late st Contact Info) Description 11/24/2022 MyC Medical Advice [facility] [address] 4[address] [place] [address] Radhika Love MA Social History Tobacco Use [...] on file 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 Gender Identity Not on file Sexual Orientation Not on file documented as of this encounter Plan of Treatment Not on file documented as of this encounter Visit Diagnoses Not on filedocumented in this encounter Additional Health Concerns Infection Onset Date Last Indicated Resolved Time Rule Out C-difficile 06/13/2025 06/13/2025 025 5:32 PM CDT documented as of this encounter Care Teams Negotiations Director Relationship Specialty Start Date End Date Sushant Schreiber MD [address] [address] PCP - General Family Medicine 12/02/21 No Ref-Primary, Physician 12/02/21 Cisco Caceres MD Fellow Gastroenterology 12/09/21 Sabiha Hogan APRN BRICK MASON [address] [place] [address] Assigned Heart and Vascular Provider 12/15/21 02/13/23 Yung Rodriguez MD [address] [facility] [address] [place] [address] Cardiovascular Disease 12/25/21 Tatianna Horne, [facility] [address] [place] [address] Pharmacist Pharmacist Pearl Glue Drier 02/06/22 [facility] [address] [place] [address] Assigned MTM Pharmacist 08/13/22 Billie Tucker, RN Specialty Language And Literature Division Chair Gastroenterology 12/10/22 [place] PACrispinC [address] [place] [address] Physician Loan Interviewer Mortgage Dermatology 12/25/22 01/13/23 Paul Sanford MD [address] [place] [address] Gastroenterology 12/25/22 Paul Sanford MD [address] [place] [address] Referring Physician Gastroenterology 01/14/23 Jt Waters MD [address] [place] [address] Dermatology 01/14/23 Jt Waters MD [address] [place] [address] Assigned Surgical Provider 01/17/23 01/28/24 Bhavik Segura PA-C [address] [place] [address] Physician Loan Interviewer Mortgage Gastroenterology 04/28/23 Paul Sanford MD [address] [place] [address] 061375 Assigned Gastroenterology Provider 07/18/23 02/04/25 Favian Mcknight MD [address] [place] [address] [id number] MD Dermatology 12/09/23 Favian Mcknight MD [address] [place] [address] [id number] Assigned Surgical Provider 01/29/24 02/04/25 Tatianna Horne [facility] [address] [place] [address] 799165 Assigned MTM Pharmacist 07/08/24 Lyudmila Baltazar, JANELL Home Infusion Technical Product Manager 08/29/24 Paul Sanford MD [address] [place] [address] Home Infusion Following Provider Gastroenterology 09/07/24 Favian Mcknight MD [address] [place] [address] 301125 Assigned Dermatology Provider 02/05/25 documented as of this encounter
--- OUTSIDE RECORDS SUMMARY | 2025-06-18 12:02 | XMS_ITS | Encounter Summary ---
Author Organization [place] Address [address] [place] [address] 737[address] Care Team Providers Care Water Resources Program Director Name Role Phone Sushant Schreiber MD Primary Care Provider No Ref-Primary, Physician Unavailable [phone] Cisco Caceres MD Unavailable Yung Rodriguez MD Unavailable Tatianna Horne [facility] Unavailable Billie Tucker RN Unavailable Unavailable Paul Sanford MD Unavailable Paul Sanford MD Unavailable [phone] Jt Waters MD Unavailable Bhavik Segura PA-C Unavailable [phone] Paul Sanford MD Unavailable Favian Mcknight MD Unavailable [phone] Fvaian Mcknight MD Unavailable [phone] Tatianna Horne [facility] Unavailable Lyudmila Baltazar RN Unavailable [facility] Paul Sanford MD Unavailable [phone] Favian Mcknight MD Unavailable [phone] Encounter Details Date Type Department Care Team (Late st Contact Info) Description 12/18/2024 [facility] [address] [phone] [address] [phone] Social History Tobacco Use Types Packs/Day Years [...] on file 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 Gender Identity Not on file Sexual Orientation Not on file documented as of this encounter Plan of Treatment Not on file documented as of this encounter Visit Diagnoses Not on filedocumented in this encounter Additional Health Concerns Infection Onset Date Last Indicated Resolved Time Rule Out C-difficile 06/13/2025 06/13/2025 025 5:32 PM CDT documented as of this encounter Care Teams Water Resources Program Director Relationship Specialty Start Date End Date Sushant Schreiber MD [address] [address] PCP - General Family Medicine 12/02/21 No Ref-Primary, Physician 12/02/21 Cisco Caceres MD Fellow Gastroenterology 12/09/21 Yung Rodriguez MD [address] [facility] [address] [place] [address] Cardiovascular Disease 12/25/21 [facility] [address] [place] [address] Pharmacist Pharmacist Railroad Passenger Agent 02/06/22 Billie Tucker, RN Specialty Hog Scalder Gastroenterology 12/10/22 Paul Sanford MD Gastroenterology 12/25/22 Paul Sanford MD Referring Physician Gastroenterology 01/14/23 Jt Waters MD [address] [place] [address] [phone] Dermatology 01/14/23 Bhavik Segura PA-C [address] [place] [address] 509985 Physician Component Assembler Gastroenterology 04/28/23 Paul Sanford MD [address] [place] [address] [phone] Assigned Gastroenterology Provider 07/18/23 02/04/25 Favian Mcknight MD [address] [place] [address] 238115 Dermatology 12/09/23 Favian Mcknight MD [address] [place] [address] Assigned Surgical Provider 01/29/24 02/04/25 Tatianna Horne [facility] [address] [place] [address] Assigned MTM Pharmacist 07/08/24 Lyudmila Baltazar, RN Home Infusion Civil Preparedness Coordinator 08/29/24 Paul Sanford MD Home Infusion Following Provider Gastroenterology 09/07/24 Favian Mcknight MD [address] [place] [address] Assigned Dermatology Provider 02/05/25 documented as of this encounter
--- OUTSIDE RECORDS SUMMARY | 2025-06-18 12:02 | XMS_ITS | Encounter Summary ---
Author Organization [facility] Address [address] [place] [address] Care Team Providers Care Motor Polarizer Name Role Phone Sushant Schreiber MD Primary Care Provider No Ref-Primary, Physician Unavailable Cisco Caceres MD Unavailable [phone] Yung Rodriguez MD Unavailable Tatianna Horne [facility] Unavailable [phone] Billie Tucker RN Unavailable Unavailable Paul Sanford MD Unavailable [phone] Paul Sanford MD Unavailable Jt Waters MD Unavailable Bhavik Segura PA-C Unavailable [phone] Favian Mcknight MD Unavailable [phone] Tatianna Horne [facility] Unavailable Lyudmila Baltazar RN Unavailable Unavailabl e Paul Sanford MD Unavailable Favian Mcknight MD Unavailable [phone] Encounter Details Date Type Department Care Team (Late st Contact Info) Description 04/05/2025 Home Infusion [facility] [address] [place] [address] Violet Zamudio [address] [address] Social History Tobacco Use Types [...] on file 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 Gender Identity Not on file Sexual Orientation Not on file documented as of this encounter Plan of Treatment Not on file documented as of this encounter Visit Diagnoses Not on filedocumented in this encounter Care Teams Motor Polarizer Relationship Specialty Start Date End Date Sushant Schreiber MD [facility] & [address] [address] PCP - General Family Medicine 12/02/21 No Ref-Primary, Physician 12/02/21 Cisco Caceres MD Fellow Gastroenterology 12/09/21 Yung Rodriguez MD [address] [facility] [address] [place] [address] Cardiovascular Disease 12/25/21 Tatianna Horne, [facility] [address] [place], [place] 764805 Pharmacist Pharmacist Cement Truck Driver 02/06/22 Billie Tucker, RN Specialty Legal Billing Coordinator Gastroenterology 12/10/22 Paul Sanford MD Gastroenterology 12/25/22 Paul Sanford MD Referring Physician Gastroenterology 01/14/23 Jt Waters MD [address] [place] [address] 233715 Dermatology 01/14/23 Bhavik Segura PA-C [address] [place] [address] 388865 Physician Roller Mill Tender Gastroenterology 04/28/23 Favian Mcknight MD [address] [place] [address] MD Dermatology 12/09/23 Tatianna Horne, [facility] [address] [place] [address] [phone] Assigned MTM Pharmacist 07/08/24 Lyudmila Baltazar, RN Home Infusion Mechanical Applications Engineer 08/29/24 Paul Sanford MD Home Infusion Following Provider Gastroenterology 09/07/24 Favian Mcknight MD [address] [place] [address] Assigned Dermatology Provider 02/05/25 documented as of this encounter
--- OUTSIDE RECORDS SUMMARY | 2025-06-18 12:02 | XMS_ITS | Encounter Summary ---
Author Organization [place] Address [address] [place] [address] Care Team Providers Care Commercial Relief Driver Name Role Phone Sushant Schreiber MD Primary Care Provider No Ref-Primary, Physician Unavailable [phone] Cisco Caceres MD Unavailable [phone] Sabiha Hogan APRN OBIEE OBIA SOLUTION ARCHITECT Unavailable [phone] Yung Rodriguez MD Unavailable Tatianna Horne [facility] Unavailable [phone] Tatianna Horne [facility] Unavailable [phone] Billie Tucker RN Unavailable Unavailable [place] Unavailable Paul Sanford MD Unavailable [phone] Paul Sanford MD Unavailable [phone] Jt Waters MD Unavailable Jt Waters MD Unavailable Bhavik Segura-C Unavailable [phone] Paul Sanford MD Unavailable [phone] Favian Mcknight MD Unavailable [phone] Favian Mcknight MD Unavailable [phone] Tatianna Horne [facility] Unavailable [phone] Lyudmila Baltazar RN Unavailable Unavailabl e Paul Sanford MD Unavailable Favian Mcknight MD Unavailable [phone] Encounter Details Date Type Department Care Team (Late st Contact Info) Description 12/16/2022 MyC Medical Advice [facility] Specialty [facility] [address] [place] [phone] Abhijeetmaryanne Tatianna Darrel, [facility] [address] [place] [address] [id number] Social History Tobacco Use Types Packs/Day Years [...] on file 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 No / Unsure 12/09/2022 2:55 PM SURG RN documented as of this encounter Plan of Treatment Not on file documented as of this encounter Visit Diagnoses Not on filedocumented in this encounter Additional Health Concerns Infection Onset Date Last Indicated Resolved Time Rule Out C-difficile 06/13/2025 06/13/2025 025 5:32 PM CDT documented as of this encounter Care Teams Commercial Relief Driver Relationship Specialty Start Date End Date Sushant Schreiber MD [facility] - [address] [address] PCP - General Family Medicine 12/02/21 No Ref-Primary, Physician 12/02/21 Cisco Caceres MD Fellow Gastroenterology 12/09/21 Sabiha Hogan APRN OBIEE OBIA SOLUTION ARCHITECT [address] [place] [id number] Assigned Heart and Vascular Provider 12/15/21 02/13/23 Yung Rodriguez MD [address] [facility] [address] [place] [address] Cardiovascular Disease 12/25/21 [facility] [address] [place] [address] Pharmacist Pharmacist Assembler Motor Vehicle 02/06/22 [facility] [address] [place] [address] Assigned MTM Pharmacist 08/13/22 Billie Tucker, JANELL Specialty Code Machine Operator Gastroenterology 12/10/22 Chantale Grande PA-C [address] [place] [address] Physician Ssrs Report Developer Dermatology 12/25/22 01/13/23 Paul Sanford MD [address] [place] [address] Gastroenterology 12/25/22 Paul Sanford MD [address] [place] [address] Referring Physician Gastroenterology 01/14/23 Jt Waters MD [address] [place] [address] Dermatology 01/14/23 Jt Waters MD [address] [place] [address] Assigned Surgical Provider 01/17/23 01/28/24 Bhavik Segura PA-C [address] [place] [address] Physician Ssrs Report Developer Gastroenterology 04/28/23 Paul Sanford MD [address] [place] [address] Assigned Gastroenterology Provider 07/18/23 02/04/25 Favian Mcknight MD [address] [place] [address] Dermatology 12/09/23 Favian Mcknight MD [address] [place] [address] Assigned Surgical Provider 01/29/24 02/04/25 Tatianna Horne [facility] [address] [place] [address] Assigned MTM Pharmacist 07/08/24 Lyudmila Baltazar, RN Home Infusion Battery Charger Tester 08/29/24 Paul Sanford MD [address] [place] [address] Home Infusion Following Provider Gastroenterology 09/07/24 Favian Mcknight MD [address] [place] [address] Assigned Dermatology Provider 02/05/25 documented as of this encounter
--- OUTSIDE RECORDS SUMMARY | 2025-06-18 12:02 | XMS_ITS | Encounter Summary ---
Author Organization [place] Address [address] [place] [address] Care Team Providers Care Process Validation Engineer Name Role Phone Sushant Schreiber MD Primary Care Provider No Ref-Primary, Physician Unavailable Cisco Caceres MD Unavailable Yung Rodriguez MD Unavailable Tatianna Horne [facility] Unavailable [phone] Billie Tucker RN Unavailable Unavailable Paul Sanford MD Unavailable Paul Sanford MD Unavailable Jt Waters MD Unavailable Bhavik Segura PA-C Unavailable [phone] Paul Sanford MD Unavailable aFvian Mcknight MD Unavailable [phone] Favian Mcknight MD Unavailable [phone] Tatianna Horne [facility] Unavailable Lyudmila Baltazar RN Unavailable [facility] Paul Sanford MD Unavailable [phone] Favian Mcknight MD Unavailable [phone] Encounter Details Date Type Department Care Team (Late st Contact Info) Description 03/16/2024 [facility] Cancer [address] [phone] [address] [phone] Social History Tobacco Use Types Packs/Day Years [...] on file 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 Gender Identity Not on file Sexual Orientation Not on file documented as of this encounter Plan of Treatment Not on file documented as of this encounter Visit Diagnoses Not on filedocumented in this encounter Additional Health Concerns Infection Onset Date Last Indicated Resolved Time Rule Out C-difficile 06/13/2025 06/13/2025 025 5:32 PM CDT documented as of this encounter Care Teams Process Validation Engineer Relationship Specialty Start Date End Date Sushant Schreiber MD [address] [address] PCP - General Family Medicine 12/02/21 No Ref-Primary, Physician 12/02/21 Cisco Caceres MD Fellow Gastroenterology 12/09/21 Yung Rodriguez MD [address] [facility] [address] [place] [address] Cardiovascular Disease 12/25/[address] [facility] [address] [place] [address] Pharmacist Pharmacist Administrative Fellow 02/06/22 Billie Tucker, RN Specialty Sales Recruitment Specialist Gastroenterology 12/10/22 Paul Sanford MD Gastroenterology 12/25/22 Paul Sanford MD Referring Physician Gastroenterology 01/14/23 Jt Waters MD [address] [place] [address] 239645 Dermatology 01/14/23 Bhavik Segura PA-C [address] [place] [address] 633835 Physician Livestock Auctioneer Gastroenterology 04/28/23 Paul Sanford MD [address] [place] [address] 244685 Assigned Gastroenterology Provider 07/18/23 02/04/25 Favian Mcknight MD [address] [place] [address] [phone] Dermatology 12/09/23 Favian Mcknight MD [address] [place] [address] Assigned Surgical Provider 01/29/24 02/04/25 Tatianna Horne, [facility] [address] [place] [address] Assigned MTM Pharmacist 07/08/24 Lyudmila Baltazar, RN Home Infusion First Aid Officer 08/29/24 Paul Sanford MD Home Infusion Following Provider Gastroenterology 09/07/24 Favian Mcknight MD [address] [place] [address] Assigned Dermatology Provider 02/05/25 documented as of this encounter
--- OUTSIDE RECORDS SUMMARY | 2025-06-18 12:02 | XMS_ITS | Encounter Summary ---
Author Organization [place] Address [address] [place] [address] 14774 Care Team Providers Care Stock Turner Name Role Phone Sushant Schreiber MD Primary Care Provider No Ref-Primary, Physician Unavailable Cisco Caceres MD Unavailable Yung Rodriguez MD Unavailable Tatianna Horne [facility] Unavailable [phone] Billie Tucker RN Unavailable Unavailable Paul Sanford MD Unavailable Paul Sanford MD Unavailable Jt Waters MD Unavailable Bhavik Segura PA-C Unavailable [phone] Paul Sanford MD Unavailable [phone] Favian Mcknight MD Unavailable [phone] Favian Mcknight MD Unavailable [phone] Tatianna Horne [facility] Unavailable Lyudmila Baltazar RN Unavailable [facility] Paul Sanford MD Unavailable [phone] Favian Mcknight MD Unavailable [phone] Encounter Details Date Type Department Care Team (Late st Contact Info) Description 12/06/[address] 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 Gender Identity Not on file Sexual Orientation Not on file documented as of this encounter Plan of Treatment Not on file documented as of this encounter Visit Diagnoses Not on filedocumented in this encounter Additional Health Concerns Infection Onset Date Last Indicated Resolved Time Rule Out C-difficile 06/13/2025 06/13/2025 025 5:32 PM CDT documented as of this encounter Care Teams Stock Turner Relationship Specialty Start Date End Date Sushant Schreiber MD [facility] [address] [address] PCP - General Family Medicine 12/02/21 No Ref-Primary, Physician 12/02/21 Cisco Cacerse MD Fellow Gastroenterology 12/09/21 Yung Rodriguez MD [address] [facility] [address] [place] [id number] Cardiovascular Disease 12/25/21 Tatianna Horne, [facility] [address] [place] [address] Pharmacist Pharmacist Radiation Oncology Manager 02/06/22 Billie Tucker, RN Specialty Supervising Chef Gastroenterology 12/10/22 Paul Sanford MD Gastroenterology 12/25/22 Paul Sanford MD Referring Physician Gastroenterology 01/14/23 Jt Waters MD [address] [place] [address] 349545 Dermatology 01/14/23 Bhavik Segura PA-C [address] [place] [address] [id number] Physician Inspector Quality Assurance Gastroenterology 04/28/23 Paul Sanford MD [address] [place] [address] 86859 Assigned Gastroenterology Provider 07/18/23 02/04/25 Favian Mcknight MD [address] [place] [address] Dermatology 12/09/23 Favian Mcknight MD [address] [place] [address] 18144 Assigned Surgical Provider 01/29/24 02/04/25 Tatianna Horne, [facility] [address] [place] [address] [phone] Assigned MTM Pharmacist 07/08/24 Lyudmila Baltazar RN Home Infusion Scada Engineer 08/29/24 Paul Sanford MD Home Infusion Following Provider Gastroenterology 09/07/24 Favian Mcknight MD [address] [place] [address] Assigned Dermatology Provider 02/05/25 documented as of this encounter
--- OUTSIDE RECORDS SUMMARY | 2025-06-18 12:02 | XMS_ITS | Encounter Summary ---
Author Organization [place] Address [address] [place] [address] 32636 Care Team Providers Care Power Plant Inspector Name Role Phone Sushant Schreiber MD Primary Care Provider [phone] No Ref-Primary, Physician Unavailable [phone] Cisco Caceres MD Unavailable [phone] Sabiha Hogan APRN IC DESIGN ENGINEER Unavailable [phone] Yung Rodriguez MD Unavailable Tatianna Horne [facility] Unavailable [phone] Tatianna Horne [facility] Unavailable [phone] Billie Tucker RN Unavailable Unavailable [place]-C Unavailable Paul Sanford MD Unavailable [phone] Paul Sanford MD Unavailable [phone] Jt Waters MD Unavailable Jt Waters MD Unavailable Bhavik Segura-C Unavailable [phone] Paul Sanford MD Unavailable [phone] Favian Mcknight MD Unavailable [phone] Favian Mcknight MD Unavailable [phone] Tatianna Horne [facility] Unavailable [phone] Lyudmila Baltazar RN Unavailable Unavailabl e Paul Sanford MD Unavailable Favian Mcknight MD Unavailable Encounter Details Date Type Department Care Team (Late st Contact Info) Description 11/25/2022 [facility] Medical Advice [facility] Clinic [address] 4th [place] [address] Cisco Caceres MD [address] [address] Social History Tobacco Use Types Packs/Day Years [...] on file 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 Gender Identity Not on file Sexual Orientation Not on file documented as of this encounter Plan of Treatment Not on file documented as of this encounter Visit Diagnoses Not on filedocumented in this encounter Additional Health Concerns Infection Onset Date Last Indicated Resolved Time Rule Out C-difficile 06/13/2025 06/13/2025 025 5:32 PM CDT documented as of this encounter Care Teams Power Plant Inspector Relationship Specialty Start Date End Date Sushant Schreiber MD [address] [address] PCP - General Family Medicine 12/02/21 No Ref-Primary, Physician 12/02/21 Cisco Caceres MD Fellow Gastroenterology 12/09/21 Sabiha Hogan APRN IC DESIGN ENGINEER [address] [place] [address] Assigned Heart and Vascular Provider 12/15/21 02/13/23 Yung Rodriguez MD [address] [place] [address] Cardiovascular Disease 12/25/21 [facility] [address] [place] [address] Pharmacist Pharmacist Corporate Development Manager 02/06/22 [facility] [address] [place] [address] Assigned MTM Pharmacist 08/13/22 Billie Tucker, RN Specialty Street Supervisor Gastroenterology 12/10/22 Chantale Grande, [facility]pin[facility] [address] [place] [address] Physician Medical Orderly Dermatology 12/25/22 01/13/23 Paul Sanford MD [address] [place] [address] Gastroenterology 12/25/22 Paul Sanford MD [address] [place] [address] Referring Physician Gastroenterology 01/14/23 Jt Waters MD [address] [place] [address] Dermatology 01/14/23 Jt Waters MD [address] [place] [address] [phone] Assigned Surgical Provider 01/17/23 01/28/24 Bhavik Segura PA-C [address] [place] [address] 292625 Physician Medical Orderly Gastroenterology 04/28/23 Paul Sanford MD [address] [place] [address] [phone] Assigned Gastroenterology Provider 07/18/23 02/04/25 Favian Mcknight MD [address] [place] [address] 061975 MD Dermatology 12/09/23 Favian Mcknight MD [address] [place] [address] [phone] Assigned Surgical Provider 01/29/24 02/04/25 Tatianna Horne [facility] [address] [place] [address] [phone] Assigned MTM Pharmacist 07/08/24 Lyudmila Baltazar, RN Home Infusion Horologist Apprentice 08/29/24 Paul Sanford MD [address] [place] [address] Home Infusion Following Provider Gastroenterology 09/07/24 Favian Mcknight MD [address] [place] [address] 674245 Assigned Dermatology Provider 02/05/25 documented as of this encounter
--- OUTSIDE RECORDS SUMMARY | 2025-06-18 12:02 | XMS_ITS | Encounter Summary ---
Author Organization [place] Address [address] [place] [address] 12246 Care Team Providers Care Air Brake Mechanic Name Role Phone Sushant Schreiber MD Primary Care Provider No Ref-Primary, Physician Unavailable [phone] Cisco Caceres MD Unavailable [phone] Sabiha Hogan APRN PLASTER MECHANIC Unavailable [phone] Yung Rodriguez MD Unavailable Tatianna Horne [facility] Unavailable [phone] Tatianna Horne [facility] Unavailable [phone] Billie Tucker RN Unavailable Unavailable [place]-C Unavailable Paul Sanford MD Unavailable [phone] Paul Sanford MD Unavailable [phone] Jt Waters MD Unavailable Jt Waters MD Unavailable Bhavik Segura-C Unavailable [phone] Paul Sanford MD Unavailable [phone] Favian Mcknight MD Unavailable [phone] Favian Mcknight MD Unavailable [phone] Tatianna Horne [facility] Unavailable [phone] Lyudmila Baltazar RN Unavailable Unavailabl e Paul Sanford MD Unavailable [phone] Favian Mcknight MD Unavailable Encounter Details Date Type Department Care Team (Late st Contact Info) Description 12/10/2022 [facility]ology Clinic [address] [address] [place] Social History Tobacco Use Types Packs/Day Years [...] file Legal 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 No / Unsure 12/09/2022 2:55 PM BUSINESS APPLICATIONS MANAGER documented as of this encounter Plan of Treatment Not on file documented as of this encounter Visit Diagnoses Not on filedocumented in this encounter Additional Health Concerns Infection Onset Date Last Indicated Resolved Time Rule Out C-difficile 06/13/2025 06/13/2025 025 5:32 PM CDT documented as of this encounter Care Teams Air Brake Mechanic Relationship Specialty Start Date End Date Sushant Schreiber MD [address] [address] PCP - General Family Medicine 12/02/21 No Ref-Primary, Physician 12/02/21 Cisco Caceres MD Fellow Gastroenterology 12/09/21 Sabiha Hogan APRN PLASTER MECHANIC [address] [place] [address] Assigned Heart and Vascular Provider 12/15/21 02/13/23 Yung Rodriguez MD [address] [place] [address] [place] [address] Cardiovascular Disease 12/25/21 [facility] [address] [place] [address] Pharmacist Pharmacist Utility System Operator 02/06/22 [facility] [address] [place] [address] Assigned MTM Pharmacist 08/13/22 Billie Tucker, RN Specialty Job Recruiter Gastroenterology 12/10/22 Chantale Grande, PACrispinC [address] [place] [address] Physician Woods Superintendent Dermatology 12/25/22 01/13/23 Paul Sanford MD [address] [place] [address] Gastroenterology 12/25/22 Paul Sanford MD [address] [place] [address] Referring Physician Gastroenterology 01/14/23 Jt Waters MD [address] [place] [address] Dermatology 01/14/23 Jt Waters MD [address] [place] [address] 105365 Assigned Surgical Provider 01/17/23 01/28/24 Bhavik Segura PA-C [address] [place] [address] 507435 Physician Woods Superintendent Gastroenterology 04/28/23 Paul Sanford MD [address] [place] [address] 907415 Assigned Gastroenterology Provider 07/18/23 02/04/25 Favian Mcknight MD [address] [place] [address] MD Dermatology 12/09/23 Favian Mcknight MD [address] [place] [address] 210235 Assigned Surgical Provider 01/29/24 02/04/25 Tatianna Horne [facility] [address] [place] [address] Assigned MTM Pharmacist 07/08/24 Lyudmila Baltazar, RN Home Infusion Reacher 08/29/24 Paul Sanford MD [address] [place] [address] [id number] Home Infusion Following Provider Gastroenterology 09/07/24 Favian Mcknight MD [address] [place] [address] Assigned Dermatology Provider 02/05/25 documented as of this encounter
--- OUTSIDE RECORDS SUMMARY | 2025-06-18 12:02 | XMS_ITS | Encounter Summary ---
Author Organization [place] Address [address] [place] [address]267 Care Team Providers Care In Home Sales Consultant Name Role Phone Sushant Schreiber MD Primary Care Provider No Ref-Primary, Physician Unavailable [phone] Cisco Caceres MD Unavailable Yung Rodriguez MD Unavailable Tatianna Horne [facility] Unavailable Billie Tucker RN Unavailable Unavailable Paul Sanford MD Unavailable Paul Sanford MD Unavailable [phone] Jt Waters MD Unavailable Jt Waters MD Unavailable Bhavik Segura PA-C Unavailable [phone] Paul Sanford MD Unavailable [phone] Favian Mcknight MD Unavailable [phone] Favian Mcknight MD Unavailable [phone] Tatianna Horne [facility] Unavailable Lyudmila Baltazar RN Unavailable Unavailabl e Paul Sanford MD Unavailable [phone] Favian Mcknight MD Unavailable [phone] Encounter Details Date Type Department Care Team (Late st Contact Info) Description 11/13/2023 [facility]ology Clinic [address] [place] [address] Mckenzie Lim RN Social History [...] on file 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 Gender Identity Not on file Sexual Orientation Not on file documented as of this encounter Plan of Treatment Not on file documented as of this encounter Visit Diagnoses Not on filedocumented in this encounter Additional Health Concerns Infection Onset Date Last Indicated Resolved Time Rule Out C-difficile 06/13/2025 06/13/2025 025 5:32 PM CDT documented as of this encounter Care Teams In Home Sales Consultant Relationship Specialty Start Date End Date Sushant Schreiber MD [facility] [address] [address] PCP - General Family Medicine 12/02/21 No Ref-Primary, Physician 12/02/21 Cisco Caceres MD Fellow Gastroenterology 12/09/21 Yung Rodriguez MD [address] [facility] [address] [place] 448135 Cardiovascular Disease 12/25/21 Tatianna Horne, [facility] [address] [place] [address] 075705 Pharmacist Pharmacist Neurology Stroke Physician 02/06/22 Billie Tucker, RN Specialty Manufacturing Supervisor Gastroenterology 12/10/22 Paul Sanford MD Gastroenterology 12/25/22 Paul Sanford MD Referring Physician Gastroenterology 01/14/23 Jt Waters MD [address] [place], [place] 056855 Dermatology 01/14/23 tJ Waters MD [address] [place] [address] Assigned Surgical Provider 01/17/23 01/28/24 Bhavik Segura PA-C [address] [place] [address] 101465 Physician Calculus Tutor Gastroenterology 04/28/23 Paul Sanford MD [address] [place] [address] Assigned Gastroenterology Provider 07/18/23 02/04/25 Favian Mcknight MD [address] [place] [address] Dermatology 12/09/23 Favian Mcknight MD [address] [place] [address] Assigned Surgical Provider 01/29/24 02/04/25 Tatianna Horne [facility] [address] [place] [address] Assigned MTM Pharmacist 07/08/24 Lyudmila Baltazar, RN Home Infusion Roving Weight Gauger 08/29/24 Paul Sanford MD Home Infusion Following Provider Gastroenterology 09/07/24 Favian Mcknight MD [address] [place] [address] Assigned Dermatology Provider 02/05/25 documented as of this encounter
--- OUTSIDE RECORDS SUMMARY | 2025-06-18 12:02 | XMS_ITS | Encounter Summary ---
Author Organization [place] Address [address] [place] [address] Care Team Providers Care Assistant Family Teacher Name Role Phone Sushant Schreiber MD Primary Care Provider [phone] No Ref-Primary, Physician Unavailable Cisco Caceres MD Unavailable Yung Rodriguez MD Unavailable Tatianna Horne [facility] Unavailable Billie Tucker RN Unavailable Unavailable Paul Sanford MD Unavailable Paul Sanford MD Unavailable [phone] Jt Waters MD Unavailable Jt Waters MD Unavailable Bhavik Segura PA-C Unavailable [phone] Paul Sanford MD Unavailable [phone] Favian Mcknight MD Unavailable [phone] Favian Mcknight MD Unavailable [phone] Tatianna Horne [facility] Unavailable Lyudmila Baltazar RN Unavailable Unavailabl e Paul Sanford MD Unavailable [phone] Favian Mcknight MD Unavailable [phone] Encounter Details Date Type Department Care Team (Late st Contact Info) Description 11/11/2023 [facility] Gastroenterology Clinic [address] [place] [address] Bin Allison Social History Tobacco [...] on file 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 Gender Identity Not on file Sexual Orientation Not on file documented as of this encounter Plan of Treatment Not on file documented as of this encounter Visit Diagnoses Not on filedocumented in this encounter Additional Health Concerns Infection Onset Date Last Indicated Resolved Time Rule Out C-difficile 06/13/2025 06/13/2025 025 5:32 PM CDT documented as of this encounter Care Teams Assistant Family Teacher Relationship Specialty Start Date End Date Sushant Schreiber MD [address] [address] PCP - General Family Medicine 12/02/21 No Ref-Primary, Physician 12/02/21 Cisco Caceres MD Fellow Gastroenterology 12/09/21 Yung Rodriguez MD [address] [place] [address] [place] [address] Cardiovascular Disease 12/25/21 Tatianna Horne, [facility] [address] [place] [address] 532105 Pharmacist Pharmacist Public Health Internship 02/06/22 Billie Tucker, RN Specialty Air Twist Operator Gastroenterology 12/10/22 Paul Sanford MD Gastroenterology 12/25/22 Paul Sanford MD Referring Physician Gastroenterology 01/14/23 Jt Waters MD [address] [place], [place] 303215 Dermatology 01/14/23 Jt Waters MD [address] [place] [address] Assigned Surgical Provider 01/17/23 01/28/24 Bhavik Segura PA-C [address] [place] [address] 515775 Physician Associate Director Of Development Gastroenterology 04/28/23 Paul Sanford MD [address] [place] [address] Assigned Gastroenterology Provider 07/18/23 02/04/25 Favian Mcknight MD [address] [place] [address] Dermatology 12/09/23 Favian Mcknight MD [address] [place] [address] 24[address] Assigned Surgical Provider 01/29/24 02/04/25 Tatianna Horne [facility] [address] [place] [address] Assigned MTM Pharmacist 07/08/24 Lyudmila Baltazar RN Home Infusion Quiller Operator 08/29/24 Paul Sanford MD Home Infusion Following Provider Gastroenterology 09/07/24 Favian Mcknight MD [address] [place] [address] Assigned Dermatology Provider 02/05/25 documented as of this encounter
--- OUTSIDE RECORDS SUMMARY | 2025-06-18 12:02 | XMS_ITS | Encounter Summary ---
Author Organization [place] Address [address] [place] [address] Care Team Providers Care Drawbench Operator Helper Name Role Phone Sushant Schreiber MD Primary Care Provider No Ref-Primary, Physician Unavailable Cisco Caceres MD Unavailable Yung Rodriguez MD Unavailable Tatianna Horne [facility] Unavailable Billie Tucker RN Unavailable Unavailable Paul Sanford MD Unavailable [phone] Paul Sanford MD Unavailable Jt Waters MD Unavailable Bhavik Segura PA-C Unavailable [phone] Paul Sanford MD Unavailable Favian Mcknight MD Unavailable [phone] Favian Mcknight MD Unavailable [phone] Tatianna Horne [facility] Unavailable Lyudmila Baltazar RN Unavailable [facility] Paul Sanford MD Unavailable [phone] Favian Mcknight MD Unavailable [phone] Encounter Details Date Type Department Care Team (Late st Contact Info) Description 11/17/2024 [facility] Gastroenterology Clinic [address] [place] [address] Billie Tucker, RN Social History [...] on file 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 Gender Identity Not on file Sexual Orientation Not on file documented as of this encounter Plan of Treatment Not on file documented as of this encounter Visit Diagnoses Not on filedocumented in this encounter Additional Health Concerns Infection Onset Date Last Indicated Resolved Time Rule Out C-difficile 06/13/2025 06/13/2025 025 5:32 PM CDT documented as of this encounter Care Teams Drawbench Operator Helper Relationship Specialty Start Date End Date Sushant Schreiber MD [facility] & [address] [address] PCP - General Family Medicine 12/02/21 No Ref-Primary, Physician 12/02/21 Cisco Caceres MD Fellow Gastroenterology 12/09/21 Yung Rodriguez MD [address] [facility] [address] [place] [address] Cardiovascular Disease 12/25/21 Tatianna Horne, [facility] [address] [place] [address] Pharmacist Pharmacist Psychologist Research Assistant 02/06/22 Billie Tucker, RN Specialty School Bus Operator Gastroenterology 12/10/22 Paul Sanford MD Gastroenterology 12/25/22 Paul Sanford MD Referring Physician Gastroenterology 01/14/23 Jt Waters MD [address] [place] [address] [phone] Dermatology 01/14/23 Bhavik Segura PA-C [address] [place] [address] 006265 Physician Button Sawyer Gastroenterology 04/28/23 Paul Sanford MD [address] [place] [address] Assigned Gastroenterology Provider 07/18/23 02/04/25 Favian Mcknight MD [address] [place] [address] Dermatology 12/09/23 Favian Mcknight MD [address] [place] [address] Assigned Surgical Provider 01/29/24 02/04/25 Tatianna Horne, [facility] [address] [place] [address] [phone] Assigned MTM Pharmacist 07/08/24 Lyudmila Baltazar RN Home Infusion Boat Tender 08/29/24 Paul Sanford MD Home Infusion Following Provider Gastroenterology 09/07/24 Favian Mcknight MD [address] [place] [address] Assigned Dermatology Provider 02/05/25 documented as of this encounter
--- OUTSIDE RECORDS SUMMARY | 2025-06-18 12:02 | XMS_ITS | Encounter Summary ---
Author Organization [facility] Address [address] [place] [address] 32093 Care Team Providers Care Ceramic Tile Mechanic Name Role Phone Sushant Schreiber MD Primary Care Provider No Ref-Primary, Physician Unavailable Cisco Caceres MD Unavailable Yung Rodriguez MD Unavailable Tatianna Horne [facility] Unavailable Billie Tucker RN Unavailable Unavailable Paul Sanford MD Unavailable Paul Sanford MD Unavailable Jt Waters MD Unavailable Jt Waters MD Unavailable Bhavik Segura PA-C Unavailable [phone] Paul Sanford MD Unavailable [phone] Favian Mcknight MD Unavailable [phone] Favian Mcknight MD Unavailable Tatianna Horne [facility] Unavailable Lyudmila Baltazar RN Unavailable Unavailabl e Paul Sanford MD Unavailable [phone] Favian Mcknight MD Unavailable [phone] Encounter Details Date Type Department Care Team (Late st Contact Info) Description 09/11/2023 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 Gender Identity Not on file Sexual Orientation Not on file documented as of this encounter Plan of Treatment Not on file documented as of this encounter Visit Diagnoses Not on filedocumented in this encounter Additional Health Concerns Infection Onset Date Last Indicated Resolved Time Rule Out C-difficile 06/13/2025 06/13/2025 025 5:32 PM CDT documented as of this encounter Care Teams Ceramic Tile Mechanic Relationship Specialty Start Date End Date Sushant Schreiber MD [facility] - [address] [address] PCP - General Family Medicine 12/02/21 No Ref-Primary, Physician 12/02/21 Cisco Caceres MD Fellow Gastroenterology 12/09/21 Yung Rodriguez MD [address] [facility] [address] [place] [id number] Cardiovascular Disease 12/25/21 Tatianna Horne, [facility] [address] [place] [address] [phone] Pharmacist Pharmacist Universal Branch Consultant 02/06/22 Billie Tucker, RN Specialty Meter/Relay Craftsman Gastroenterology 12/10/22 Paul Sanford MD Gastroenterology 12/25/22 Paul Sanford MD Referring Physician Gastroenterology 01/14/23 Jt Waters MD [address] [place], [place] 243025 Dermatology 01/14/23 Jt Waters MD [address] [place] [address] Assigned Surgical Provider 01/17/23 01/28/24 Bhavik Segura PA-C [address] [place] [place] [address] 459055 Physician Research Librarian Gastroenterology 04/28/23 Paul Sanford MD [address] [place] [address] Assigned Gastroenterology Provider 07/18/23 02/04/25 Favian Mcknight MD [address] [place] [address] Dermatology 12/09/23 Favian Mcknight MD [address] [place] [address] Assigned Surgical Provider 01/29/24 02/04/25 Tatianna Horne [facility] [address] [place] [address] Assigned MTM Pharmacist 07/08/24 Lyudmila Baltazar, RN Home Infusion Klystrom Tube Tester 08/29/24 Paul Sanford MD Home Infusion Following Provider Gastroenterology 09/07/24 Favian Mcknight MD [address] [place] [address] Assigned Dermatology Provider 02/05/25 documented as of this encounter
--- OUTSIDE RECORDS SUMMARY | 2025-06-18 12:02 | XMS_ITS | Clinical Summary ---
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 Gender Identity Not on file Sexual Orientation [...] Health Maintenance Due Date Last Done Comments Tetanus booster 1999 Depression screening for age 12+ 2000 Hepatitis B series for 19+ ( 1 of 3 - 19+ 3-dose series) 2007 COVID-19 vaccine series (3 - Moderna risk series) 08/27/2021 07/30/2021, 07/02/2021 Lipids for age 35-44 2023 Influenza Vaccine (#1) 2025 BMI (ht and wt on same day) for age 18+ 09/15/2025 09/15/2024 HIV for age 15-65 Completed 06/29/2020 Hepatitis C screening for ag e 18-79 Completed 08/16/2021 Pneumococcal series for age 6-49 Aged Out No longer eligible b ased on patient's age to complete this topic Medical Devices Implanted Type Area Environmental Services Aide Device Identifier Shelf Expiration Date Model / Serial / Lot Dura Neuro 1xin Duragen Robertnon-Sut - [id number] Implanted:Qty: 1 on 04/21/2022 by Tadeo Calles MD at [facility] [employer] [facility] 01/13/2025 [id number] / / [id number] Procedures Procedure Name Priority Date/Time Associated Diagnosis [...] alma Non-React alma 08/16/2021 7:39 PM CDT [facility] Comment:Antibodies to HCV no t detected; does not exclude the possibility of exposure to HCV. Blood BLOOD SPECIMEN / Unknown Butterfly / Unknown 08/16/2021 11:49 AM CDT 08/16/2021 12:15 PM CDT us Kaity Villatoro DO SEND OUTS Final Resul t [facility] [address] [place] [address], [place] * ANTI HIV 1/2 (06/29/2020 2:53 PM CDT) HIV-1/HIV-2 ANTIBODY Non-Reacti ve Non-Reacti ve 06/29/2020 8:44 PM CDT [facility] Comment:HIV-1 p24 and HIV-1/ HIV-2 Ab not detected. Blood BLOOD SPECIMEN / Unknown Venipuncture / Unknown 06/29/2020 2:53 PM CDT 06/29/2020 2:53 PM CDT us Vinicio Teresa MD SEND OUTS Final Res ult [facility] [address] [place] [address], [place] from Last 3 Months or Most Recently Relevant to Health Maintenance Insurance [facility] Advance Directives * Full Code (Latest Code Status on File) Date Activated Date Inactivated Comments 05/15/2022 7:03 PM 05/17/2022 4:29 PM Question Answer Comments Code Status Discussion: Reviewed Preferences Care Teams Tax Manager Public Relationship Specialty Start Date End Date Sushant Schreiber MD [address] [place] [address] PCP - General Family Practice 06/29/20
--- OUTSIDE RECORDS SUMMARY | 2025-06-18 12:02 | XMS_ITS | Encounter Summary ---
Author Organization [facility] Address [address] [place] [address] Care Team Providers Care Family Service Center Director Name Role Phone Sushant Schreiber MD Primary Care Provider No Ref-Primary, Physician Unavailable [phone] Cisco Caceres MD Unavailable Yung Rodriguez MD Unavailable Tatianna Horne [facility] Unavailable Billie Tucker RN Unavailable Unavailable Paul Sanford MD Unavailable Paul Sanford MD Unavailable [phone] Jt Waters MD Unavailable Jt Waters MD Unavailable Bhavik Segura PA-C Unavailable [phone] Paul Sanford MD Unavailable [phone] Favian Mcknight MD Unavailable [phone] Favian Mcknight MD Unavailable [phone] Tatianna Horne [facility] Unavailable Lyudmila Baltazar RN Unavailable Unavailabl e Paul Sanford MD Unavailable [phone] Favian Mcknight MD Unavailable [phone] Encounter Details Date Type Department Care Team (Late st Contact Info) Description 09/21/2023 [facility] [address] [place] [address] Mckenzie Lim RN Social History [...] file 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 Gender Identity Not on file Sexual Orientation Not on file documented as of this encounter Plan of Treatment Not on file documented as of this encounter Visit Diagnoses Not on filedocumented in this encounter Additional Health Concerns Infection Onset Date Last Indicated Resolved Time Rule Out C-difficile 06/13/2025 06/13/2025 025 5:32 PM CDT documented as of this encounter Care Teams Family Service Center Director Relationship Specialty Start Date End Date Sushant Schreiber MD [facility] - [address] [address] PCP - General Family Medicine 12/02/21 No Ref-Primary, Physician 12/02/21 Cisco Caceres MD Fellow Gastroenterology 12/09/21 Yung Rodriguez MD [address] [facility] [address] [place] [address] Cardiovascular Disease 12/25/21 Tatianna Horne, [facility] [address] [place] [address] 236395 Pharmacist Pharmacist Nematology Teacher 02/06/22 Billie Tucker, RN Specialty Private Sector Executive Gastroenterology 12/10/22 Paul Sanford MD Gastroenterology 12/25/22 Paul Sanford MD Referring Physician Gastroenterology 01/14/23 Jt Waters MD [address] [place], [place] [address] Dermatology 01/14/23 Jt Waters MD [address] [place] [address] Assigned Surgical Provider 01/17/23 01/28/24 Bhavik Segura PA-C [address] [place] [address] 244055 Physician Strategic Analyst Gastroenterology 04/28/23 Paul Sanford MD [address] [place] [address] Assigned Gastroenterology Provider 07/18/23 02/04/25 Favian Mcknight MD [address] [place] [address] Dermatology 12/09/23 Favian Mcknight MD [address] [place] [address] Assigned Surgical Provider 01/29/24 02/04/25 Tatianna Horne [facility] [address] [place] [address] Assigned MTM Pharmacist 07/08/24 Lyudmila Baltazar, RN Home Infusion Sales Producer 08/29/24 Paul Sanford MD Home Infusion Following Provider Gastroenterology 09/07/24 Favian Mcknight MD [address] [place] [address] Assigned Dermatology Provider 02/05/25 documented as of this encounter
--- OUTSIDE RECORDS SUMMARY | 2025-06-18 12:03 | XMS_ITS | Encounter Summary ---
Author Organization [facility] Address [address] [place] [address] 6[address] Care Team Providers Care Heel Sewer Name Role Phone Sushant Schreiber MD Primary Care Provider No Ref-Primary, Physician Unavailable Csico Caceres MD Unavailable Sabiha Hogan APRN [facility] Unavailable [phone] Yung Rodriguez MD Unavailable Tatianna Horne [facility] Unavailable [phone] Tatianna Horne [facility] Unavailable [phone] Tatianna Horne [facility] Unavailable [phone] Billie Tucker RN Unavailable Unavailable [place] PA-C Unavailable Paul Sanford MD Unavailable [phone] Paul Sanford MD Unavailable [phone] Jt Waters MD Unavailable Jt Waters MD Unavailable Bhavik Segura PA-C Unavailable [phone] Paul Sanford MD Unavailable [phone] Favian Mcknight MD Unavailable [phone] Favian Mcknight MD Unavailable [phone] Tatianna Horne [facility] Unavailable Lyudmila Baltazar RN Unavailable Unavailabl e Paul Sanford MD Unavailable [phone] Favian Mcknight MD Unavailable Encounter Details Date Type Department Care Team (Late st Contact Info) Description 03/28/2022 [facility] Medical Advice [facility] [address] [place] [address] Mikala Kennedy CMA Social History Tobacco Use [...] on file 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 Gender Identity Not on file Sexual Orientation Not on file documented as of this encounter Plan of Treatment Not on file documented as of this encounter Visit Diagnoses Not on filedocumented in this encounter Additional Health Concerns Infection Onset Date Last Indicated Resolved Time Rule Out C-difficile 06/13/2025 06/13/2025 025 5:32 PM CDT documented as of this encounter Care Teams Heel Sewer Relationship Specialty Start Date End Date Sushant Schreiber MD [facility] & [address] [address] PCP - General Family Medicine 12/02/21 No Ref-Primary, Physician 12/02/21 Cisco Caceres MD Fellow Gastroenterology 12/09/21 Sabiha Hogan APRN MANUFACTURER [address] [place] [address] Assigned Heart and Vascular Provider 12/15/21 02/13/23 Yung Rodriguez MD [address] [facility] [address] [place] [address] Cardiovascular Disease 12/25/21 [facility] [address] [place] [address] Pharmacist Pharmacist Power Technician 02/06/22 [facility] [address] [place] [address] Assigned MTM Pharmacist 04/12/22 [facility] [address] [place] [address] Assigned MTM Pharmacist 08/13/22 Billie Tucker, JANELL Specialty Supervisor Drying And Winding Gastroenterology 12/10/22 [place] PA-C [address] [place] [address] Physician Spectral Scientist Dermatology 12/25/22 01/13/23 Paul Sanford MD [address] [place] [address] Gastroenterology 12/25/22 Paul Sanford MD [address] [place] [address] Referring Physician Gastroenterology 01/14/23 Jt Waters MD [address] [place] [address] Dermatology 01/14/23 Jt Waters MD [address] [place] [address] Assigned Surgical Provider 01/17/23 01/28/24 Bhavik Segura PA-C [address] [place] [address] Physician Spectral Scientist Gastroenterology 04/28/23 Paul Sanford MD [address] [place] [address] Assigned Gastroenterology Provider 07/18/23 02/04/25 Favian Mcknight MD [address] [place] [address] Dermatology 12/09/23 Favian Mcknight MD [address] [place] [address] Assigned Surgical Provider 01/29/24 02/04/25 Tatianna Horne [facility] [address] [place] [address] Assigned MTM Pharmacist 07/08/24 Lyudmila Baltazar, RN Home Infusion Bonbon Cream Warmer 08/29/24 [place] [address] [place] [address] Home Infusion Following Provider Gastroenterology 09/07/24 Favian Mcknight MD [address] [place], [place] 093415 Assigned Dermatology Provider 02/05/25 documented as of this encounter
--- OUTSIDE RECORDS SUMMARY | 2025-06-18 12:03 | XMS_ITS | Encounter Summary ---
Author Organization [facility] Address [address] [place] [address]17 Care Team Providers Care Scrap Sorter Name Role Phone Sushant Schreiber MD Primary Care Provider No Ref-Primary, Physician Unavailable [phone] Cisco Caceres MD Unavailable Yung Rodriguez MD Unavailable Tatianna Horne [facility] Unavailable [phone] Billie Tucker RN Unavailable Unavailable Paul Sanford MD Unavailable Paul Sanford MD Unavailable Jt Waters MD Unavailable Jt Waters MD Unavailable Bhavik Segura PA-C Unavailable [phone] Paul Sanford MD Unavailable [phone] Favian Mckngiht MD Unavailable [phone] Favian Mcknight MD Unavailable [phone] Tatianna Horne [facility] Unavailable [phone] Lyudmila Baltazar RN Unavailable Unavailabl e Paul Sanford MD Unavailable [phone] Favian Mcknight MD Unavailable [phone] Encounter Details Date Type Department Care Team (Late st Contact Info) Description 01/26/2024 [facility] [address] [place] [address] Billie Tucker RN Social History [...] on file 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 Gender Identity Not on file Sexual Orientation Not on file documented as of this encounter Plan of Treatment Not on file documented as of this encounter Visit Diagnoses Not on filedocumented in this encounter Additional Health Concerns Infection Onset Date Last Indicated Resolved Time Rule Out C-difficile 06/13/2025 06/13/2025 025 5:32 PM CDT documented as of this encounter Care Teams Scrap Sorter Relationship Specialty Start Date End Date Sushant Schreiber MD [facility] - [address] [address] PCP - General Family Medicine 12/02/21 No Ref-Primary, Physician 12/02/21 Cisco Caceres MD Fellow Gastroenterology 12/09/21 Yung Rodriguez MD [address] [facility] [address] [place] [address] Cardiovascular Disease 12/25/21 Tatianna Horne, [facility] [address] [place] [address] 527175 Pharmacist Pharmacist Hand Ii Blocker 02/06/22 Billie Tucker, RN Specialty Dextrine Mixer Gastroenterology 12/10/22 Paul Sanford MD Gastroenterology 12/25/22 Paul Sanford MD Referring Physician Gastroenterology 01/14/23 Jt Waters MD [address] [place], [place] [address] Dermatology 01/14/23 Jt Waters MD [address] [place] [address] Assigned Surgical Provider 01/17/23 01/28/24 Bhavik Segura PA-C [address] [place] [address] 935755 Physician Steel Turner Gastroenterology 04/28/23 Paul Sanford MD [address] [place] [address] Assigned Gastroenterology Provider 07/18/23 02/04/25 Favian Mcknight MD [address] [place] [address] Dermatology 12/09/23 Favian Mcknight MD [address] [place] [address] Assigned Surgical Provider 01/29/24 02/04/25 Tatianna Horne [facility] [address] [place] [address] Assigned MTM Pharmacist 07/08/24 Lyudmila Baltazar, RN Home Infusion Outdoor Studies Director 08/29/24 Paul Sanford MD Home Infusion Following Provider Gastroenterology 09/07/24 Favian Mcknight MD [address] [place] [address] Assigned Dermatology Provider 02/05/25 documented as of this encounter
--- OUTSIDE RECORDS SUMMARY | 2025-06-18 12:03 | XMS_ITS | Encounter Summary ---
Author Organization [facility] Address [address] [place] [address] Care Team Providers Care Scallop Binder Name Role Phone Sushant Schreiber MD Primary Care Provider No Ref-Primary, Physician Unavailable [phone] Cisco Caceres MD Unavailable [phone] Yung Rodriguez MD Unavailable Tatianna Horne [facility] Unavailable Billie Tucker RN Unavailable Unavailable Paul Sanford MD Unavailable Paul Sanford MD Unavailable Jt Waters MD Unavailable Jt Waters MD Unavailable Bhavik Segura PA-C Unavailable [phone] Paul Sanford MD Unavailable [phone] Favian Mcknight MD Unavailable [phone] Favian Mcknight MD Unavailable [phone] Tatianna Horne [facility] Unavailable [phone] Lyudmila Baltazar RN Unavailable Unavailabl e Paul Sanford MD Unavailable [phone] Favian Mcknight MD Unavailable [phone] Encounter Details Date Type Department Care Team (Late st Contact Info) Description 12/16/2023 [facility] [address] [place] [address] Billie Tucker RN Social History [...] on file 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 Gender Identity Not on file Sexual Orientation Not on file documented as of this encounter Plan of Treatment Not on file documented as of this encounter Visit Diagnoses Not on filedocumented in this encounter Additional Health Concerns Infection Onset Date Last Indicated Resolved Time Rule Out C-difficile 06/13/2025 06/13/2025 025 5:32 PM CDT documented as of this encounter Care Teams Scallop Binder Relationship Specialty Start Date End Date Sushant Schreiber MD [facility] - [address] [address] PCP - General Family Medicine 12/02/21 No Ref-Primary, Physician 12/02/21 Cisco Caceres MD Fellow Gastroenterology 12/09/21 Yung Rodriguez MD [address] [facility] [address] [place] [id number] Cardiovascular Disease 12/25/21 Tatianna Horne, [facility] [address] [place] [address] [phone] Pharmacist Pharmacist Property Claims Adjuster 02/06/22 Billie Tucker, RN Specialty Recruitment Specialist Gastroenterology 12/10/22 Paul Sanford MD Gastroenterology 12/25/22 Paul Sanford MD Referring Physician Gastroenterology 01/14/23 Jt Waters MD [address] [place], [place] 7[address] Dermatology 01/14/23 Jt Waters MD [address] [place] [address] Assigned Surgical Provider 01/17/23 01/28/24 Bhavik Segura PA-C [address] [place] [address] [id number] Physician Operations Intelligence Gastroenterology 04/28/23 Paul Sanford MD [address] [place] [address] Assigned Gastroenterology Provider 07/18/23 02/04/25 Favian Mcknight MD [address] [place] [address] Dermatology 12/09/23 Favian Mcknight MD [address] [place] [address] Assigned Surgical Provider 01/29/24 02/04/25 Tatianna Horne [facility] [address] [place] [address] Assigned MTM Pharmacist 07/08/24 Lyudmila Baltazar, RN Home Infusion Rn Clinical Documentation Specialist 08/29/24 Paul Sanford MD Home Infusion Following Provider Gastroenterology 09/07/24 Favian Mcknight MD [address] [place] [address] Assigned Dermatology Provider 02/05/25 documented as of this encounter
--- OUTSIDE RECORDS SUMMARY | 2025-06-18 12:03 | XMS_ITS | Encounter Summary ---
Author Organization [place] Address [address] [place] [address] Care Team Providers Care Superintendent Ammunition Storage Name Role Phone Sushant Schreiber MD Primary Care Provider No Ref-Primary, Physician Unavailable Cisco Caceres MD Unavailable [phone] Sabiha Hogan APRN [facility] Unavailable [phone] Yung Rodriguez MD Unavailable Tatianna Horne [facility] Unavailable [phone] Tatianna Horne [facility] Unavailable [phone] Tatianna Horne [facility] Unavailable +[phone] Billie Tucker RN Unavailable Unavailable Ch[place]ale [place] PA-C Unavailable [phone] Paul Sanford MD Unavailable +[phone] Paul Sanford MD Unavailable +[phone] Jt Waters MD Unavailable Jt Waters MD Unavailable Bhavik Segura PA-C Unavailable +[phone] Paul Sanford MD Unavailable [phone] Favian Mcknight MD Unavailable [phone] Favian Mcknight MD Unavailable [phone] Tatianna Horne [facility] Unavailable Lyudmila Baltazar RN Unavailable Unavailabl e Paul Sanford MD Unavailable [phone] Favian Mcknight MD Unavailable [phone] Encounter Details Date Type Department Care Team (Late st Contact Info) Description 01/28/[address] 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 Gender Identity Not on file Sexual Orientation [...] 02/27/2022 02/27/2022 03/20/2022 11:3 9 PM CDT Rule Out C-difficile 06/13/2025 06/13/2025 025 5:32 PM CDT documented as of this encounter Care Teams Superintendent Ammunition Storage Relationship Specialty Start Date End Date Sushant Schreiber MD [facility] [address] [place] [address] PCP - General Family Medicine 12/02/21 No Ref-Primary, Physician 12/02/21 Cisco Caceres MD Fellow Gastroenterology 12/09/21 Sabiha Hogan APRN CUTTING MACHINE TENDER [address] [place] [address] Assigned Heart and Vascular Provider 12/15/21 02/13/23 Yung Rodriguez MD [address] [place] [address] Cardiovascular Disease 12/25/21 [facility] [address] [place] [address] Pharmacist Pharmacist Hairspring Adjuster 02/06/22 [facility] [address] [place] [address] Assigned MTM Pharmacist 04/12/22 [facility] [address] [place] [address] Assigned MTM Pharmacist 08/13/22 Billie Tucker, JANELL Specialty Sterile Products Processor Gastroenterology 12/10/22 Chantale Grande PA-C [address] [place] [address] Physician Division Head Dermatology 12/25/22 01/13/23 Paul Sanford MD [address] [place], [place] [id number] Gastroenterology 12/25/22 Paul Sanford MD [address] [place] [address] Referring Physician Gastroenterology 01/14/23 Jt Waters MD [address] [place] [address] MD Dermatology 01/14/23 Jt Waters MD [address] [place] [address] Assigned Surgical Provider 01/17/23 01/28/24 Bhavik Segura PA-C [address] [place] [address] 087405 Physician Division Head Gastroenterology 04/28/23 Paul Sanford MD [address] [place] [address] Assigned Gastroenterology Provider 07/18/23 02/04/25 Favian Mcknight MD [address] [place] [address] Dermatology 12/09/23 Favian Mcknight MD [address] [place] [address] Assigned Surgical Provider 01/29/24 02/04/25 Tatianna Horne [facility] [address] [place] [address] Assigned MTM Pharmacist 07/08/24 Lyudmila Baltazar, RN Home Infusion Picking Machine Operator 08/29/24 Paul Sanford MD [address] [place] [address] Home Infusion Following Provider Gastroenterology 09/07/24 Favian Mcknight MD [address] [place] [address] Assigned Dermatology Provider 02/05/25 documented as of this encounter
--- OUTSIDE RECORDS SUMMARY | 2025-06-18 12:03 | XMS_ITS ---
Author Organization [place] Address [address] [place] [address] Care Team Providers Care Elevator Supervisor Name Role Phone Sushant Schreiber MD Primary Care Provider [phone] No Ref-Primary, Physician Unavailable [phone] Cisco Caceres MD Unavailable uYng Rodriguez MD Unavailable Tatianna Horne [facility] Unavailable Billie Tucker RN Unavailable Unavailable Paul Sanford MD Unavailable Paul Sanford MD Unavailable Jt Waters MD Unavailable Bhavik Segura PA-C Unavailable [phone] Favian Mcknight MD Unavailable [phone] Tatianna Horne [facility] Unavailable Lyudmila Baltazar RN Unavailable Unavailabl e Paul Sanford MD Unavailable Favian Mcknight MD Unavailable [phone] Home Infusion Status:Paused (Paused) Start date:07/21/2024 Enrollment date:07/22/2024 Pause start date:06/13/2025 Pause reason:Patient admitted Related service episodes:Antiemetic (Active), Biologic (Active), Hydration Therapy (Active), Pain Management (Active) Case Team Name Relationship Phone Lyudmila Baltazar RN(Responsible Staff) Home Inf usion Weight Caller Continued Care and Services Coordination This section includes services coordinated for Home Infusion. [facility] Name Services Phone [facility]
--- OUTSIDE RECORDS SUMMARY | 2025-06-18 12:03 | XMS_ITS | Encounter Summary ---
Author Organization [place] Address [address] [place] [address] Care Team Providers Care Gunstock Spray Unit Feeder Name Role Phone Sushant Schreiber MD Primary Care Provider [phone] No Ref-Primary, Physician Unavailable [phone] Cisco Caceres MD Unavailable [phone] Sabiha Hogan APRN LIBRARY CONSULTANT Unavailable [phone] Yung Rodriguez MD Unavailable Tatianna Horne [facility] Unavailable [phone] Tatianna Horne [facility] Unavailable +[phone] Billie Tucker RN Unavailable Unavailable [place]-C Unavailable Paul Sanford MD Unavailable [phone] Paul Sanford MD Unavailable [phone] Jt Waters MD Unavailable Jt Waters MD Unavailable Bhavik Segura-C Unavailable +[phone] Paul Sanford MD Unavailable [phone] Favian Mcknight MD Unavailable [phone] Favian Mcknight MD Unavailable [phone] Tatianna Horne [facility] Unavailable [phone] Lyudmila Baltazar RN Unavailable Unavailabl e Paul Sanford MD Unavailable Favian Mcknight MD Unavailable [phone] Encounter Details Date Type Department Care Team (Late st Contact Info) Description 12/22/2022 MyC Medical Advice [facility] Gastroenterology Clinic [place] [phone] Billie Tucker RN Social History Tobacco Use [...] on file 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 No / Unsure 12/25/2022 7:56 AM LANGUAGE PATHOLOGIST documented as of this encounter Plan of Treatment Not on file documented as of this encounter Visit Diagnoses Not on filedocumented in this encounter Additional Health Concerns Infection Onset Date Last Indicated Resolved Time Rule Out C-difficile 06/13/2025 06/13/2025 025 5:32 PM CDT documented as of this encounter Care Teams Gunstock Spray Unit Feeder Relationship Specialty Start Date End Date Sushant Schreiber MD [address] [address] PCP - General Family Medicine 12/02/21 No Ref-Primary, Physician 12/02/21 Cisco Caceres MD Fellow Gastroenterology 12/09/21 Sabiha Hogan APRN LIBRARY CONSULTANT [address] [place] [address] Assigned Heart and Vascular Provider 12/15/21 02/13/23 Yung Rodriguez MD [address] [place] [address] Cardiovascular Disease 12/25/21 [facility] [address] [place] [address] Pharmacist Pharmacist Contract Design Agent 02/06/22 [facility] [address] [place] [address] Assigned MTM Pharmacist 08/13/22 Billie Tucker, RN Specialty Digital Traffic Coordinator Gastroenterology 12/10/22 Chantale Grande, PACrispinC [address] [place] [address] Physician Engine Setter Dermatology 12/25/22 01/13/23 Paul Sanford MD [address] [place] [address] Gastroenterology 12/25/22 Paul Sanford MD [address] [place] [address] Referring Physician Gastroenterology 01/14/23 Jt Waters MD [address] [place] [address] Dermatology 01/14/23 Jt Waters MD [address] [place] [address] Assigned Surgical Provider 01/17/23 01/28/24 Bhavik Segura PA-C [address] [place] [address] Physician Engine Setter Gastroenterology 04/28/23 Paul Sanford MD [address] [place] [address] 242595 Assigned Gastroenterology Provider 07/18/23 02/04/25 Favian Mcknight MD [address] [place] [address] MD Dermatology 12/09/23 Favian Mcknight MD [address] [place] [address] 035385 Assigned Surgical Provider 01/29/24 02/04/25 Tatianna Horne [facility] [address] [place] [address] Assigned MTM Pharmacist 07/08/24 Lyudmila Baltazar, RN Home Infusion Territory Supervisor 08/29/24 Paul Sanford MD [address] [place] [address] Home Infusion Following Provider Gastroenterology 09/07/24 Favian Mcknight MD [address] [place] [address] Assigned Dermatology Provider 02/05/25 documented as of this encounter
--- OUTSIDE RECORDS SUMMARY | 2025-06-18 12:03 | XMS_ITS | Encounter Summary ---
Author Organization [place] Address [address] [place] [address] Care Team Providers Care Farmworker Fryer Farm Name Role Phone Sushant Schreiber MD Primary Care Provider [phone] No Ref-Primary, Physician Unavailable [phone] Cisco Caceres MD Unavailable Sabiha Hogan APRN [facility] Unavailable [phone] Yung Rodriguez MD Unavailable Tatianna Horne [facility] Unavailable +[phone] Tatianna Horne [facility] Unavailable [phone] Tatianna Horne [facility] Unavailable [phone] Billie Tucker RN Unavailable Unavailable [place] PA-C Unavailable Paul Sanford MD Unavailable +[phone] Paul Sanford MD Unavailable +[phone] Jt Waters MD Unavailable Jt Waters MD Unavailable Bhavik Segura PA-C Unavailable [phone] Paul Sanford MD Unavailable [phone] Favian Mcknight MD Unavailable [phone] Favian Mcknight MD Unavailable +[phone] Anderson [facility] Unavailable Lyudmila Baltazar RN Unavailable Unavailabl e Paul Sanford MD Unavailable [phone] Favian Mcknight MD Unavailable [phone] Encounter Details Date Type Department Care Team (Late st Contact Info) Description 03/17/2022 MyC Medical Advice [facility] Gastroenterology Clinic [address] [place] [address] Radhika Love MA Social History [...] on file 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 Gender Identity Not on file Sexual Orientation [...] documented as of this encounter Care Teams Farmworker Fryer Farm Relationship Specialty Start Date End Date Sushant Schreiber MD [address] [address] PCP - General Family Medicine 12/02/21 No Ref-Primary, Physician 12/02/21 Cisco Caceres MD Fellow Gastroenterology 12/09/21 Sabiha Hogan APRN CNP [address] [place] [address] Assigned Heart and Vascular Provider 12/15/21 02/13/23 Yung Rodriguez MD [address] [place] [address] Cardiovascular Disease 12/25/21 [facility] [address] [place] [address] Pharmacist Pharmacist Lump Maker 02/06/22 [facility] [address] [place] [address] Assigned MTM Pharmacist 04/12/22 [facility] [address] [place] [address] Assigned MTM Pharmacist 08/13/22 Billie Tucker, JANELL Specialty Chemical Process Project Engineer Gastroenterology 12/10/22 Chantale Grande PA-C [address] [place], [place] 8291992 Physician Electron Beam Operator Dermatology 12/25/22 01/13/23 Paul Sanford MD [address] [place], [place] 0792292 Gastroenterology 12/25/22 Paul Sanford MD [address] [place] [address] Referring Physician Gastroenterology 01/14/23 Jt Waters MD [address] [place] [address] MD Dermatology 01/14/23 Jt Waters MD [address] [place] [address] Assigned Surgical Provider 01/17/23 01/28/24 Bhavik Segura PA-C [address] [place] [address] 155095 Physician Electron Beam Operator Gastroenterology 04/28/23 Paul Sanford MD [address] [place] [address] Assigned Gastroenterology Provider 07/18/23 02/04/25 Favian Mcknight MD [address] [place] [address] Dermatology 12/09/23 Favian Mcknight MD [address] [place] [address] Assigned Surgical Provider 01/29/24 02/04/25 Tatianna Horne [facility] [address] [place] [address] Assigned [place] Pharmacist 07/08/24 Lyudmila Baltazar, RN Home Infusion Route Sales Specialist 08/29/24 Paul Sanford MD [address] [place] [address] Home Infusion Following Provider Gastroenterology 09/07/24 Favian Mcknight MD [address] [place] [address] Assigned Dermatology Provider 02/05/25 documented as of this encounter
--- OUTSIDE RECORDS SUMMARY | 2025-06-18 12:03 | XMS_ITS | Encounter Summary ---
Author Organization [place] Address [address] [place] [address] Care Team Providers Care Core Finisher Name Role Phone Sushant Schreiber MD Primary Care Provider [phone] No Ref-Primary, Physician Unavailable [phone] Cisco Caceres MD Unavailable [phone] Sabiha Hogan APRN CAUSTIC PURIFICATION OPERATOR Unavailable [phone] Yung Rodriguez MD Unavailable Tatianna Horne [facility] Unavailable +[phone] Tatianna Horne [facility] Unavailable +[phone] Billie Tucker RN Unavailable Unavailable Ch[place]ale Grande-C Unavailable [phone] Paul Sanford MD Unavailable [phone] Paul Sanford MD Unavailable [phone] Jt Waters MD Unavailable Jt Waters MD Unavailable Bhavik Segura-C Unavailable [phone] Paul Sanford MD Unavailable [phone] Favian Mcknight MD Unavailable [phone] Favian Mcknight MD Unavailable [phone] Tatianna Horne [facility] Unavailable [phone] Lyudmila Baltazar RN Unavailable Unavailabl e Paul Sanford MD Unavailable Favian Mcknight MD Unavailable Encounter Details Date Type Department Care Team (Late st Contact Info) Description 08/14/2022 MyC Medical Advice [facility] [address] [facility] [address] [place] [address] Sabiha Hogan APRN CAUSTIC PURIFICATION OPERATOR [address] [place] [address] Social History Tobacco Use Types Packs/Day Years [...] on file 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 [address] [place] [address] PCP - General Family Medicine 12/02/21 No Ref-Primary, Physician 12/02/21 Cisco Caceres MD Fellow Gastroenterology 12/09/21 Sabiha Hogan APRN CAUSTIC PURIFICATION OPERATOR [address] [place] [address] Assigned Heart and Vascular Provider 12/15/21 02/13/23 Yung Rodriguez MD [address] [facility] [address] [place] [address] Cardiovascular Disease 12/25/21 [facility] [address] [place] [address] Pharmacist Pharmacist Stripper And Opaquer Apprentice 02/06/22 [facility] [address] [place] [address] Assigned MTM Pharmacist 08/13/22 Billie Tucker, RN Specialty Technical Administrator Gastroenterology 12/10/22 Chantale Grande, PABeti [address] [place] [address] Physician Supervisor Wall Mirror Department Dermatology 12/25/22 01/13/23 Paul Sanford MD [address] [place] [address] Gastroenterology 12/25/22 Paul Sanford MD [address] [place] [address] Referring Physician Gastroenterology 01/14/23 Jt Waters MD [address] [place] [address] Dermatology 01/14/23 Jt Waters MD [address] [place] [address] Assigned Surgical Provider 01/17/23 01/28/24 Bhavik Segura PA-C [address] [place] [address] 616465 Physician Supervisor Wall Mirror Department Gastroenterology 04/28/23 Paul Sanford MD [address] [place] [address] 352635 Assigned Gastroenterology Provider 07/18/23 02/04/25 Favian Mcknight MD [address] [place] [address] MD Dermatology 12/09/23 Favian Mcknight MD [address] [place] [address] Assigned Surgical Provider 01/29/24 02/04/25 Tatianna Horne [facility] [address] [place] [address] Assigned MTM Pharmacist 07/08/24 Lyudmila Baltazar, RN Home Infusion Steam Tunnel Feeder 08/29/24 [place] [address] [place] [address] Home Infusion Following Provider Gastroenterology 09/07/24 Favian Mcknight MD [address] [place] [address] Assigned Dermatology Provider 02/05/25 documented as of this encounter
--- OUTSIDE RECORDS SUMMARY | 2025-06-18 12:03 | XMS_ITS | Encounter Summary ---
Author Organization [place] Address [address] [place] [address] Care Team Providers Care Breaker Up Machine Operator Name Role Phone Sushant Schreiber MD Primary Care Provider No Ref-Primary, Physician Unavailable [phone] Cisco Caceres MD Unavailable Sabiha Hogan APRN [facility] Unavailable [phone] Yung Rodriguez MD Unavailable Tatianna Horne [facility] Unavailable +[phone] Tatianna Horne [facility] Unavailable +[phone] Tatianna Horne [facility] Unavailable +[phone] Billie Tucker RN Unavailable Unavailable [place] PA-C Unavailable Paul Sanford MD Unavailable +[phone] Paul Sanford MD Unavailable +[phone] Jt Waters MD Unavailable Jt Waters MD Unavailable Bhavik Segura PA-C Unavailable [phone] Paul Sanford MD Unavailable [phone] Favian Mcknight MD Unavailable [phone] Favian Mcknight MD Unavailable +[phone] Anderson [facility] Unavailable Lyudmila Baltazar RN Unavailable Unavailabl e Paul Sanford MD Unavailable [phone] Favian Mcknight MD Unavailable [phone] Encounter Details Date Type Department Care Team (Late st Contact Info) Description 07/07/2022 MyC Medical Advice [facility] Gastroenterology Clinic [address] [place] [address] Michelle Enamorado RN Social [...] on file 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 Gender Identity Not on file Sexual Orientation Not on file documented as of this encounter Plan of Treatment Not on file documented as of this encounter Visit Diagnoses Not on filedocumented in this encounter Additional Health Concerns Infection Onset Date Last Indicated Resolved Time Rule Out C-difficile 06/13/2025 06/13/2025 025 5:32 PM CDT documented as of this encounter Care Teams Breaker Up Machine Operator Relationship Specialty Start Date End Date Sushant Schreiber MD [facility] [address] [place] [address] PCP - General Family Medicine 12/02/21 No Ref-Primary, Physician 12/02/21 Cisco Caceres MD Fellow Gastroenterology 12/09/21 Sabiha Hogan APRN LEVEL GLASS FORMING MACHINE OPERATOR [address] [place] [address] Assigned Heart and Vascular Provider 12/15/21 02/13/23 Yung Rodriguez MD [address] [facility] [address] [place] [address] Cardiovascular Disease 12/25/21 [facility] [address] [place] [address] Pharmacist Pharmacist Route Driver 02/06/22 [facility] [address] [place] [address] Assigned MTM Pharmacist 04/12/22 [facility] [address] [place] [address] Assigned MTM Pharmacist 08/13/22 Billie Tucker, RN Specialty Grey Roll Worker Gastroenterology 12/10/22 Chantale Grande, PACrispinC [address] [place] [address] Physician Drill Sharpener Dermatology 12/25/22 01/13/23 Paul Sanford MD [address] [place] [address] Gastroenterology 12/25/22 Paul Sanford MD [address] [place] [address] Referring Physician Gastroenterology 01/14/23 Jt Waters MD [address] [place] [address] Dermatology 01/14/23 Jt Waters MD [address] [place] [address] Assigned Surgical Provider 01/17/23 01/28/24 Bhavik Segura PA-C [address] [place] [address] 588565 Physician Drill Sharpener Gastroenterology 04/28/23 Paul Sanford MD [address] [place] [address] Assigned Gastroenterology Provider 07/18/23 02/04/25 Favian Mcknight MD [address] [place] [address] MD Dermatology 12/09/23 Favian Mcknight MD [address] [place] [address] Assigned Surgical Provider 01/29/24 02/04/25 Tatianna Horne [facility] [address] [place] [address] Assigned MTM Pharmacist 07/08/24 Lyudmila Baltazar, RN Home Infusion Machine Setter Supervisor 08/29/24 Paul Sanford MD [facility] [place] [address] Home Infusion Following Provider Gastroenterology 09/07/24 Favian Mcknight MD [address] [place] [address] Assigned Dermatology Provider 02/05/25 documented as of this encounter
--- OUTSIDE RECORDS SUMMARY | 2025-06-18 12:03 | XMS_ITS | Encounter Summary ---
Author Organization [place] Address [address] [place] [address] Care Team Providers Care Package Dyeing Machine Operator Name Role Phone Sushant Schreiber MD Primary Care Provider [phone] No Ref-Primary, Physician Unavailable Cisco Caceres MD Unavailable Sabiha Hogan APRN [facility] Unavailable [phone] Yung Rodriguez MD Unavailable Tatianna Horne [facility] Unavailable [phone] Tatianna Horne [facility] Unavailable [phone] Tatianna Horne [facility] Unavailable [phone] Billie Tucker RN Unavailable Unavailable Ch[place] PA-C Unavailable Paul Sanford MD Unavailable +[phone] Paul Sanford MD Unavailable +[phone] Jt Waters MD Unavailable Jt Waters MD Unavailable Bhavik Segura PA-C Unavailable [phone] Paul Sanford MD Unavailable [phone] Favian Mcknight MD Unavailable [phone] Favian Mcknight MD Unavailable +[phone] Anderson [facility] Unavailable Lyudmila Baltazar RN Unavailable Unavailabl e Paul Sanford MD Unavailable [phone] Favian Mcknight MD Unavailable [phone] Encounter Details Date Type Department Care Team (Late st Contact Info) Description 06/27/2022 MyC Medical Advice [address] 5th [place] [address] Chantell Madera, JANELL Social History Tobacco Use [...] on file 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 Gender Identity Not on file Sexual Orientation Not on file documented as of this encounter Plan of Treatment Not on file documented as of this encounter Visit Diagnoses Not on filedocumented in this encounter Additional Health Concerns Infection Onset Date Last Indicated Resolved Time Rule Out C-difficile 06/13/2025 06/13/2025 025 5:32 PM CDT documented as of this encounter Care Teams Package Dyeing Machine Operator Relationship Specialty Start Date End Date Sushant Schreiber MD [facility] & [address] [address] PCP - General Family Medicine 12/02/21 No Ref-Primary, Physician 12/02/21 Cisco Caceres MD Fellow Gastroenterology 12/09/21 Sabiha Hogan APRN WILDLIFE BIOLOGIST [address] [place] [address] Assigned Heart and Vascular Provider 12/15/21 02/13/23 Yung Rodriguez MD [address] [facility] [address] [place] [address] Cardiovascular Disease 12/25/21 Tatianna Horne [facility] [address] [place] [address] Pharmacist Pharmacist Sales Agent Insurance 02/06/22 [facility] [address] [place] [address] Assigned MTM Pharmacist 04/12/22 Tatianna Horne [facility] [address] [place] [address] Assigned MTM Pharmacist 08/13/22 Billie Tucker, JANELL Specialty Superintendent Distribution Gastroenterology 12/10/22 Chantale Grande PA-C [address] [place] [address] Physician Wheel And Pinion Inspector Dermatology 12/25/22 01/13/23 Paul Sanford MD [address] [place] [address] Gastroenterology 12/25/22 Paul Sanford MD [address] [place] [address] Referring Physician Gastroenterology 01/14/23 Jt Waters MD [address] [place] [address] Dermatology 01/14/23 Jt Waters MD [address] [place] [address] Assigned Surgical Provider 01/17/23 01/28/24 Bhavik Segura PA-C [address] [place] [address] Physician Wheel And Pinion Inspector Gastroenterology 04/28/23 Paul Sanford MD [address] [place] [address] Assigned Gastroenterology Provider 07/18/23 02/04/25 Favian Mcknight MD [address] [place] [address] Dermatology 12/09/23 Favian Mcknight MD [address] [place] [address] Assigned Surgical Provider 01/29/24 02/04/25 Tatianna Horne [facility] [address] [place] [address] Assigned MTM Pharmacist 07/08/24 Lyudmila Baltazar, JANELL Home Infusion Carton Machine Operator 08/29/24 [place] [address] [place] [address] Home Infusion Following Provider Gastroenterology 09/07/24 Favian Mcknight MD [address] [place] [address] Assigned Dermatology Provider 02/05/25 documented as of this encounter
--- OUTSIDE RECORDS SUMMARY | 2025-06-18 12:03 | XMS_ITS | Encounter Summary ---
Author Organization [place] Address [address] [place] [address] Care Team Providers Care Engineering Systems Analyst Name Role Phone Sushant Schreiber MD Primary Care Provider No Ref-Primary, Physician Unavailable [phone] Cisco Caceres MD Unavailable [phone] Yung Rodriguez MD Unavailable Tatianna Horne [facility] Unavailable [phone] Tatianna Horne [facility] Unavailable [phone] Billie Tucker RN Unavailable Unavailable Paul Sanford MD Unavailable +[phone] Paul Sanford MD Unavailable [phone] Jt Waters MD Unavailable Jt Waters MD Unavailable Bhavik Segura PA-C Unavailable [phone] Paul Sanford MD Unavailable [phone] Favian Mcknight MD Unavailable [phone] Favian Mcknight MD Unavailable [phone] Tatianna Horne [facility] Unavailable [phone] Lyudmila Baltazar RN Unavailable Unavailabl e Paul Sanford MD Unavailable [phone] Favian Mcknight MD Unavailable [phone] Encounter Details Date Type Department Care Team (Late st Contact Info) Description 07/07/2023 MyC Medical Advice [facility] Gastroenterology Clinic [address] [place] [address] Beatriz Mak Social History Tobacco Use Types [...] on file 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 Gender Identity Not on file Sexual Orientation [...] documented as of this encounter Care Teams Engineering Systems Analyst Relationship Specialty Start Date End Date Sushant Schreiber MD [address] [address] PCP - General Family Medicine 12/02/21 No Ref-Primary, Physician 12/02/21 Cisco Caceres MD Fellow Gastroenterology 12/09/21 Yung Rodriguez MD [address] [facility] [address] [place] [address] Cardiovascular Disease 12/25/21 [facility] [address] [place] [address] Pharmacist Pharmacist Data Collection Associate 02/06/22 [facility] [address] [place] [address] Assigned MTM Pharmacist 08/13/22 Billie Tucker, JANELL Specialty Pattern Changer Gastroenterology 12/10/22 Paul Sanford MD Gastroenterology 12/25/22 Paul Sanford MD Referring Physician Gastroenterology 01/14/23 Jt Waters MD [address] [place] [address] Dermatology 01/14/23 Jt Waters MD [address] [place] [address] Assigned Surgical Provider 01/17/23 01/28/24 Bhavik Segura PA-C [address] [place] [address] Physician Percussion Teacher Gastroenterology 04/28/23 Paul Sanford MD [address] [place] [address] Assigned Gastroenterology Provider 07/18/23 02/04/25 Favian Mcknight MD [address] [place] [address] Dermatology 12/09/23 Favian Mcknight MD [address] [place] [address] Assigned Surgical Provider 01/29/24 02/04/25 Tatianna Horne [facility] [address] [place] [address] Assigned MTM Pharmacist 07/08/24 Lyudmila Baltazar, RN Home Infusion Machine Woodworking Sander 08/29/24 Paul Sanford MD Home Infusion Following Provider Gastroenterology 09/07/24 Favian Mcknight MD [address] [place] [address] Assigned Dermatology Provider 02/05/25 documented as of this encounter
--- OUTSIDE RECORDS SUMMARY | 2025-06-18 12:03 | XMS_ITS | Encounter Summary ---
Author Organization [place] Address [address] [place] [address] Care Team Providers Care Rehabilitation Services Coordinator Name Role Phone Sushant Schreiber MD Primary Care Provider No Ref-Primary, Physician Unavailable [phone] Cisco Caceres MD Unavailable [phone] Yung Rodriguez MD Unavailable Tatianna Horne [facility] Unavailable [phone] Billie Tucker RN Unavailable Unavailable Paul Sanford MD Unavailable Paul Sanford MD Unavailable Jt Waters MD Unavailable Jt Waters MD Unavailable Bhavik Segura PA-C Unavailable [phone] Paul Sanford MD Unavailable [phone] Favian Mcknight MD Unavailable [phone] Favian Mcknight MD Unavailable [phone] Tatianna Horne [facility] Unavailable Lyudmila Baltazar RN Unavailable Unavailabl e Paul Sanford MD Unavailable [phone] Favian Mcknight MD Unavailable [phone] Encounter Details Date Type Department Care Team (Late st Contact Info) Description 01/12/2024 [facility] Dermatologic Surgery Clinic [address] [place] [address] Diony Drummond Social History Tobacco [...] on file 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 Gender Identity Not on file Sexual Orientation Not on file documented as of this encounter Plan of Treatment Not on file documented as of this encounter Visit Diagnoses Not on filedocumented in this encounter Additional Health Concerns Infection Onset Date Last Indicated Resolved Time Rule Out C-difficile 06/13/2025 06/13/2025 025 5:32 PM CDT documented as of this encounter Care Teams Rehabilitation Services Coordinator Relationship Specialty Start Date End Date Sushant Schreiber MD [facility] & [address] [address] PCP - General Family Medicine 12/02/21 No Ref-Primary, Physician 12/02/21 Cisco Caceres MD Fellow Gastroenterology 12/09/21 Yung Rodriguez MD [address] [facility] [address] [place] 8216[address] Cardiovascular Disease 12/25/21 Tatianna Horne, [facility] [address] [place] [address] 912185 Pharmacist Pharmacist Pass Worker 02/06/22 Billie Tucker, RN Specialty Production Scheduler Gastroenterology 12/10/22 Paul Sanford MD Gastroenterology 12/25/22 Paul Sanford MD Referring Physician Gastroenterology 01/14/23 Jt Waters MD [address] [place], [place] 245935 Dermatology 01/14/23 Jt Waters MD [address] [place] [address] Assigned Surgical Provider 01/17/23 01/28/24 Bhavik Segura PA-C [address] [place] [address] 284565 Physician Radio Aerial Installer Gastroenterology 04/28/23 Paul Sanford MD [address] [place] [address] Assigned Gastroenterology Provider 07/18/23 02/04/25 Favian Mcknight MD [address] [place] [address] Dermatology 12/09/23 Favian Mcknight MD [address] [place] [address] Assigned Surgical Provider 01/29/24 02/04/25 Tatianna Horne [facility] [address] [place] [address] Assigned MTM Pharmacist 07/08/24 Lyudmila Baltazar RN Home Infusion Service Operations Manager 08/29/24 Paul Sanford MD Home Infusion Following Provider Gastroenterology 09/07/24 Favian Mcknight MD [address] [place] [address] Assigned Dermatology Provider 02/05/25 documented as of this encounter
--- OUTSIDE RECORDS SUMMARY | 2025-06-18 12:03 | XMS_ITS | Encounter Summary ---
Author Organization [place] Address [address] [place] [address] Care Team Providers Care Event Manager Name Role Phone Sushant Schreiber MD Primary Care Provider No Ref-Primary, Physician Unavailable [phone] Cisco Caceres MD Unavailable [phone] Sabiha Hogan APRN [facility] Unavailable [phone] Yung Rodriguez MD Unavailable Tatianna Horne [facility] Unavailable [phone] Tatianna Horne [facility] Unavailable [phone] Tatianna Horne [facility] Unavailable [phone] Billie Tucker RN Unavailable Unavailable [place] PA-C Unavailable Paul Sanford MD Unavailable +[phone] Paul Sanford MD Unavailable +[phone] Jt Waters MD Unavailable Jt Waters MD Unavailable Bhavik Segura PA-C Unavailable [phone] Paul Sanford MD Unavailable [phone] Favian Mcknight MD Unavailable [phone] Favian Mcknight MD Unavailable [phone] Anderson [facility] Unavailable Lyudmila Baltazar RN Unavailable Unavailabl e Paul Sanford MD Unavailable [phone] Favian Mcknight MD Unavailable [phone] Encounter Details Date Type Department Care Team (Late st Contact Info) Description 06/27/2022 MyC Medical Advice [address] 5th [place] [address] Chantell Madera, JANELL Social History [...] file 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 Gender Identity Not on file Sexual Orientation Not on file documented as of this encounter Plan of Treatment Not on file documented as of this encounter Visit Diagnoses Not on filedocumented in this encounter Additional Health Concerns Infection Onset Date Last Indicated Resolved Time Rule Out C-difficile 06/13/2025 06/13/2025 025 5:32 PM CDT documented as of this encounter Care Teams Event Manager Relationship Specialty Start Date End Date Sushant Schreiber MD [facility] & [address] [address] PCP - General Family Medicine 12/02/21 No Ref-Primary, Physician 12/02/21 Cisco Caceres MD Fellow Gastroenterology 12/09/21 Sabiha Hogan APRN SOLAR ELECTRIC PRACTITIONER [address] [place] [address] Assigned Heart and Vascular Provider 12/15/21 02/13/23 Yung Rodriguez MD [address] [facility] [address] [place] [address] Cardiovascular Disease 12/25/21 Tatianna Horne [facility] [address] [place] [address] Pharmacist Pharmacist Cocoa Press Operator 02/06/22 [facility] [address] [place] [address] Assigned MTM Pharmacist 04/12/22 Tatianna Horne [facility] [address] [place] [address] Assigned MTM Pharmacist 08/13/22 Billie Tucker, JANELL Specialty Reverse Unit Operator Gastroenterology 12/10/22 Chantale Grande PA-C [address] [place] [address] Physician Regional Clinical Director Dermatology 12/25/22 01/13/23 Paul Sanford MD [address] [place] [address] Gastroenterology 12/25/22 Paul Sanford MD [address] [place] [address] Referring Physician Gastroenterology 01/14/23 Jt Waters MD [address] [place] [address] Dermatology 01/14/23 Jt Waters MD [address] [place] [address] Assigned Surgical Provider 01/17/23 01/28/24 Bhavik Segura PA-C [address] [place] [address] Physician Regional Clinical Director Gastroenterology 04/28/23 Paul Sanford MD [address] [place] [address] Assigned Gastroenterology Provider 07/18/23 02/04/25 Favian Mcknight MD [address] [place] [address] Dermatology 12/09/23 Favian Mcknight MD [address] [place] [address] Assigned Surgical Provider 01/29/24 02/04/25 Tatianna Horne [facility] [address] [place] [address] Assigned MTM Pharmacist 07/08/24 Lyudmila Baltazar, JANELL Home Infusion Slime Plant Operator 08/29/24 [place] [address] [place] [address] Home Infusion Following Provider Gastroenterology 09/07/24 Favian Mcknight MD [address] [place] [address] Assigned Dermatology Provider 02/05/25 documented as of this encounter
--- OUTSIDE RECORDS SUMMARY | 2025-06-18 12:03 | XMS_ITS | Encounter Summary ---
Author Organization [place] Address [address] [place] [address] Care Team Providers Care Charge Out Clerk Name Role Phone Sushant Schreiber MD Primary Care Provider No Ref-Primary, Physician Unavailable [phone] Cisco Caceres MD Unavailable [phone] Yung Rodriguez MD Unavailable Tatianna Horne [facility] Unavailable Billie Tucker RN Unavailable Unavailable Paul Sanford MD Unavailable Paul Sanford MD Unavailable [phone] Jt Waters MD Unavailable Jt Waters MD Unavailable Bhavik eSgura PA-C Unavailable [phone] Paul Sanford MD Unavailable [phone] Favian Mcknight MD Unavailable [phone] Favian Mcknight MD Unavailable [phone] Tatianna Horne [facility] Unavailable Lyudmila Baltazar RN Unavailable Unavailabl e Paul Sanford MD Unavailable [phone] Favian Mcknight MD Unavailable [phone] Encounter Details Date Type Department Care Team (Late st Contact Info) Description 01/19/2024 [facility] Gastroenterology Clinic [address] 4th [place] [address] Paul Sanford MD [address] [place] [address] 488145 Social History Tobacco Use Types Packs/Day Years [...] file 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 Gender Identity Not on file Sexual Orientation Not on file documented as of this encounter Plan of Treatment Not on file documented as of this encounter Visit Diagnoses Not on filedocumented in this encounter Additional Health Concerns Infection Onset Date Last Indicated Resolved Time Rule Out C-difficile 06/13/2025 06/13/2025 025 5:32 PM CDT documented as of this encounter Care Teams Charge Out Clerk Relationship Specialty Start Date End Date Sushant Schreiber MD [facility] & [address] [address] PCP - General Family Medicine 12/02/21 No Ref-Primary, Physician 12/02/21 Cisco Caceres MD Fellow Gastroenterology 12/09/21 Yung Rodriguez MD [address] [facility] [address] [place] [address] Cardiovascular Disease 12/25/21 Tatianna Horne, [facility] [address] [place] [address] Pharmacist Pharmacist Head Golf Coach 02/06/22 Billie Tucker, RN Specialty Administrative Executive Gastroenterology 12/10/22 Paul Sanford MD Gastroenterology 12/25/22 Paul Sanford MD Referring Physician Gastroenterology 01/14/23 Jt Waters MD [address] [place] [address] Dermatology 01/14/23 Jt Waters MD [address] [place] [address] Assigned Surgical Provider 01/17/23 01/28/24 Bhavik Segura PA-C [address] [place] [address] Physician Ticker Wirer Gastroenterology 04/28/23 Paul Sanford MD [address] [place] [address] Assigned Gastroenterology Provider 07/18/23 02/04/25 Favian Mcknight MD [address] [place] [address] 572965 Dermatology 12/09/23 Favian Mcknight MD [address] [place] [address] Assigned Surgical Provider 01/29/24 02/04/25 Tatianna Horne [facility] [address] [place] [address] Assigned MTM Pharmacist 07/08/24 Lyudmila Baltazar RN Home Infusion Missile Inspector Preflight 08/29/24 Paul Sanford MD Home Infusion Following Provider Gastroenterology 09/07/24 Favian Mcknight MD [address] [place], [place] 595[address] Assigned Dermatology Provider 02/05/25 documented as of this encounter
--- OUTSIDE RECORDS SUMMARY | 2025-06-18 12:03 | XMS_ITS | Encounter Summary ---
Author Organization [place] Address [address] [place] [address] Care Team Providers Care Mid Level Game Designer Name Role Phone Sushant Schreiber MD Primary Care Provider No Ref-Primary, Physician Unavailable Cisco Caceres MD Unavailable Sabiha Hogan APRN [facility] Unavailable [phone] Yung Rodriguez MD Unavailable Tatianna Horne [facility] Unavailable [phone] Tatianna Horne [facility] Unavailable [phone] Tatianna Horne [facility] Unavailable [phone] Billie Tucker RN Unavailable Unavailable [place] PA-C Unavailable [phone] Paul Sanford MD Unavailable +[phone] Paul Sanford MD Unavailable +[phone] Jt Waters MD Unavailable Jt Waters MD Unavailable Bhavik Segura PA-C Unavailable [phone] Paul Sanford MD Unavailable [phone] Favian Mcknight MD Unavailable [phone] Favian Mcknight MD Unavailable [phone] Tatianna Horne [facility] Unavailable Lyudmila Baltazar RN Unavailable Unavailabl e Paul Sanford MD Unavailable [phone] Favian Mcknight MD Unavailable [phone] Encounter Details Date Type Department Care Team (Late st Contact Info) Description 02/17/2022 MyC Medical Advice [facility] Gastroenterology Clinic [address] 4th [place] [address] Michelle Enamorado RN Social History [...] on file 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 [address] [place] [address] PCP - General Family Medicine 12/02/21 No Ref-Primary, Physician 12/02/21 Cisco Caceres MD Fellow Gastroenterology 12/09/21 Sabiha Hogan APRN NURSING ASSISTANTS TEACHER [address] [place] [address] Assigned Heart and Vascular Provider 12/15/21 02/13/23 Yung Rodriguez MD [address] [place] [address] [place] [address] Cardiovascular Disease 12/25/21 [facility] [address] [place] [address] Pharmacist Pharmacist Manager Workers Compensation 02/06/22 [facility] [address] [place] [address] Assigned MTM Pharmacist 04/12/22 [facility] [address] [place] [address] Assigned MTM Pharmacist 08/13/22 Billie Tucker, JANELL Specialty Windows Admin Gastroenterology 12/10/22 Chantale Grande PA-C [address] [place] [address] Physician Lens Matcher Dermatology 12/25/22 01/13/23 Paul Sanford MD [address] [place], [place] 9149692 Gastroenterology 12/25/22 Paul Sanford MD [address] [place] [address] Referring Physician Gastroenterology 01/14/23 Jt Waters MD 500 [place] [address] MD Dermatology 01/14/23 Jt Waters MD [address] [place] [address] Assigned Surgical Provider 01/17/23 01/28/24 Bhavik Segura PA-C [address] [place] [address] 895095 Physician Lens Matcher Gastroenterology 04/28/23 Paul Sanford MD [address] [place] [address] Assigned Gastroenterology Provider 07/18/23 02/04/25 Favian Mcknight MD [address] [place] [address] Dermatology 12/09/23 Favian Mcknight MD [address] [place] [address] Assigned Surgical Provider 01/29/24 02/04/25 Tatianna Horne [facility] [address] [place] [address] Assigned MTM Pharmacist 07/08/24 Lyudmila Baltazar, RN Home Infusion Parachute Harness Rigger 08/29/24 Paul Sanford MD [address] [place] [address] Home Infusion Following Provider Gastroenterology 09/07/24 Favian Mcknight MD [address] [place] [address] Assigned Dermatology Provider 02/05/25 documented as of this encounter
--- OUTSIDE RECORDS SUMMARY | 2025-06-18 12:03 | XMS_ITS | Encounter Summary ---
Author Organization [place] Address [address] [place] [address] Care Team Providers Care Medical Representative Name Role Phone Sushant Schreiber MD Primary Care Provider [phone] No Ref-Primary, Physician Unavailable [phone] Cisco Caceres MD Unavailable Yung Rodriguez MD Unavailable Tatianna Horne [facility] Unavailable Billie Tucker RN Unavailable Unavailable Paul Sanford MD Unavailable Paul Sanford MD Unavailable [phone] Jt Waters MD Unavailable Jt Waters MD Unavailable Bhavik Segura PA-C Unavailable [phone] Paul Sanford MD Unavailable [phone] Favian Mcknight MD Unavailable [phone] Favian Mcknight MD Unavailable [phone] Tatianna Horne [facility] Unavailable Lyudmila Baltazar RN Unavailable Unavailabl e Paul Sanford MD Unavailable [phone] Favian Mcknight MD Unavailable [phone] Encounter Details Date Type Department Care Team (Late st Contact Info) Description 12/23/2023 [facility] [place] [facility] Gastroenterology Clinic [address] 4th [place] [address] Cisco Caceres MD [facility] [address] [place] [address] Social History Tobacco Use Types Packs/Day Years [...] file 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 Gender Identity Not on file Sexual Orientation Not on file documented as of this encounter Plan of Treatment Not on file documented as of this encounter Visit Diagnoses Not on filedocumented in this encounter Additional Health Concerns Infection Onset Date Last Indicated Resolved Time Rule Out C-difficile 06/13/2025 06/13/2025 025 5:32 PM CDT documented as of this encounter Care Teams Medical Representative Relationship Specialty Start Date End Date Sushant Schreiber MD [facility] [address] [place] [address] PCP - General Family Medicine 12/02/21 No Ref-Primary, Physician 12/02/21 Cisco Caceres MD Fellow Gastroenterology 12/09/21 Yung Rodriguez MD [address] [place] [address] [place] [address] Cardiovascular Disease 12/25/21 Tatianna Horne, [facility] [address] [place], [place] 522[address] Pharmacist Pharmacist Fast Food Attendant 02/06/22 Billie Tucker, RN Specialty Home Housekeeper Gastroenterology 12/10/22 Paul Sanford MD Gastroenterology 12/25/22 Paul Sanford MD Referring Physician Gastroenterology 01/14/23 Jt Waters MD [address] [place] [address] Dermatology 01/14/23 Jt Waters MD [address] [place] [address] 33212 Assigned Surgical Provider 01/17/23 01/28/24 Bhavik Segura PA-C [address] [place] [address] Physician Salesperson Fashion Accessories Gastroenterology 04/28/23 Paul Sanford MD [address] [place] [address] Assigned Gastroenterology Provider 07/18/23 02/04/25 Favian Mcknight MD [address] [place] [address] Dermatology 12/09/23 Favian Mcknight MD [address] [place] [address] Assigned Surgical Provider 01/29/24 02/04/25 Tatianna Horne [facility] [address] [place] [address] Assigned MTM Pharmacist 07/08/24 Lyudmila Baltazar RN Home Infusion Shrimp Peeling Machine Operator 08/29/24 Paul Sanford MD Home Infusion Following Provider Gastroenterology 09/07/24 Favian Mcknight MD [address] [place] [address] Assigned Dermatology Provider 02/05/25 documented as of this encounter
--- OUTSIDE RECORDS SUMMARY | 2025-06-18 12:03 | XMS_ITS | Encounter Summary ---
Author Organization [place] Address [address] [place] [address] Care Team Providers Care Roulette Dealer Name Role Phone Sushant Schreiber MD Primary Care Provider No Ref-Primary, Physician Unavailable [phone] Cisco Caceres MD Unavailable [phone] Sabiha Hogan APRN SKILLS AUDITOR Unavailable [phone] Yung Rodriguez MD Unavailable Tatianna Horne [facility] Unavailable [phone] Tatianna Horne [facility] Unavailable [phone] Billie Tucker RN Unavailable Unavailable [place]-[facility] Unavailable Paul Sanford MD Unavailable [phone] Paul Sanford MD Unavailable [phone] Jt Waters MD Unavailable Jt Waters MD Unavailable Bhavik Segura-C Unavailable [phone] Paul Sanford MD Unavailable [phone] Favian Mcknight MD Unavailable [phone] Favian Mcknight MD Unavailable [phone] Tatianna Horne [facility] Unavailable [phone] Lyudmila Baltazar RN Unavailable Unavailabl e Paul Sanford MD Unavailable Favian Mcknight MD Unavailable Encounter Details Date Type Department Care Team (Late st Contact Info) Description 12/16/2022 [facility] [place] [place] Medical Advice Adult Call Center [address] [place] [id number] Diony Drummond Social History Tobacco Use Types [...] on file 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 No / Unsure 12/09/2022 2:55 PM RISK CONTROL REPRESENTATIVE documented as of this encounter Plan of Treatment Not on file documented as of this encounter Visit Diagnoses Not on filedocumented in this encounter Additional Health Concerns Infection Onset Date Last Indicated Resolved Time Rule Out C-difficile 06/13/2025 06/13/2025 025 5:32 PM CDT documented as of this encounter Care Teams Roulette Dealer Relationship Specialty Start Date End Date Sushant Schreiber MD [facility] & [address] [address] PCP - General Family Medicine 12/02/21 No Ref-Primary, Physician 12/02/21 Cisco Caceres MD Fellow Gastroenterology 12/09/21 Sabiha Hogan APRN SKILLS AUDITOR [address] [place] [address] Assigned Heart and Vascular Provider 12/15/21 02/13/23 Yung Rodriguez MD [address] [facility] [address] [place] [address] Cardiovascular Disease 12/25/21 [facility] [address] [place] [address] Pharmacist Pharmacist Wire Sawyer 02/06/22 [facility] [address] [place] [address] Assigned MTM Pharmacist 08/13/22 Billie Tucker, RN Specialty Vamp Creaser Gastroenterology 12/10/22 Ch[place]ale [place] [facility] [address] [place] [address] Physician Generation Technologist Dermatology 12/25/22 01/13/23 Paul Sanford MD [address] [place] [address] Gastroenterology 12/25/22 Paul Sanford MD [address] [place] [address] Referring Physician Gastroenterology 01/14/23 Jt Waters MD [address] [place] [address] Dermatology 01/14/23 Jt Waters MD [address] [place] [address] 794155 Assigned Surgical Provider 01/17/23 01/28/24 Bhavik Segura PA-C [address] [place] [address] 030555 Physician Generation Technologist Gastroenterology 04/28/23 Paul Sanford MD [address] [place] [address] 435965 Assigned Gastroenterology Provider 07/18/23 02/04/25 Favian Mcknight MD [address] [place] [address] [phone] MD Dermatology 12/09/23 Favian Mcknight MD [address] [place] [address] 430015 Assigned Surgical Provider 01/29/24 02/04/25 Tatianna Horne [facility] [address] [place] [address] 254995 Assigned MTM Pharmacist 07/08/24 Lyudmila Baltazar, RN Home Infusion Wash Mill Operator 08/29/24 Paul Sanford MD [address] [place] [address] Home Infusion Following Provider Gastroenterology 09/07/24 Favian Mcknight MD [address] [place] [address] 779105 Assigned Dermatology Provider 02/05/25 documented as of this encounter
--- OUTSIDE RECORDS SUMMARY | 2025-06-18 12:03 | XMS_ITS | Encounter Summary ---
Author Organization [place] Address [address] [place] [address] Care Team Providers Care Primary Montessori Teacher Name Role Phone Sushant Schreiber MD Primary Care Provider [phone] No Ref-Primary, Physician Unavailable [phone] Cisco Caceres MD Unavailable Yung Rodriguez MD Unavailable Tatianna Horne [facility] Unavailable Billie Tucker RN Unavailable Unavailable Paul Sanford MD Unavailable [phone] Paul Sanford MD Unavailable [phone] Jt Waters MD Unavailable Jt Waters MD Unavailable Bhavik Segura PA-C Unavailable [phone] Paul Sanford MD Unavailable [phone] Favian Mcknight MD Unavailable [phone] Favian Mcknight MD Unavailable [phone] Tatianna Horne [facility] Unavailable Lyudmila Baltazar RN Unavailable Unavailabl e Paul Sanford MD Unavailable [phone] Favian Mcknight MD Unavailable [phone] Encounter Details Date Type Department Care Team (Late st Contact Info) Description 12/23/2023 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 Gender Identity Not on file Sexual Orientation Not on file documented as of this encounter Plan of Treatment Not on file documented as of this encounter Visit Diagnoses Not on filedocumented in this encounter Additional Health Concerns Infection Onset Date Last Indicated Resolved Time Rule Out C-difficile 06/13/2025 06/13/2025 025 5:32 PM CDT documented as of this encounter Care Teams Primary Montessori Teacher Relationship Specialty Start Date End Date Sushant Schreiber MD [address] [address] PCP - General Family Medicine 12/02/21 No Ref-Primary, Physician 12/02/21 Cisco Caceres MD Fellow Gastroenterology 12/09/21 Yung Rodriguez MD [address] [facility] [address] [place] [address] Cardiovascular Disease 12/25/21 Tatianna Horne, [facility] [address] [place] [address] 238475 Pharmacist Pharmacist Auto Striper 02/06/22 Billie Tucker, RN Specialty Blanket Folder Gastroenterology 12/10/22 Paul Sanford MD Gastroenterology 12/25/22 Paul Sanford MD Referring Physician Gastroenterology 01/14/23 Jt Waters MD [address] [place], [place] 515325 Dermatology 01/14/23 Jt Waters MD [address] [place] [address] Assigned Surgical Provider 01/17/23 01/28/24 Bhavik Segura PA-C [address] [place] [address] 425645 Physician Milling General Superintendent Gastroenterology 04/28/23 Paul Sanford MD [address] [place] [address] Assigned Gastroenterology Provider 07/18/23 02/04/25 Favian Mcknight MD [address] [place] [address] Dermatology 12/09/23 Favian Mcknight MD [address] [place] [address] Assigned Surgical Provider 01/29/24 02/04/25 Tatianna Horne [facility] [address] [place] [address] Assigned MTM Pharmacist 07/08/24 Luydmila Baltazar RN Home Infusion Floor Mechanic 08/29/24 Paul Sanford MD Home Infusion Following Provider Gastroenterology 09/07/24 Favian Mcknight MD [address] [place] [address] Assigned Dermatology Provider 02/05/25 documented as of this encounter
--- OUTSIDE RECORDS SUMMARY | 2025-06-18 12:03 | XMS_ITS | Encounter Summary ---
Author Organization [place] Address [address] [place] [address] Care Team Providers Care Autocad Technician Name Role Phone Sushant Schreiber MD Primary Care Provider No Ref-Primary, Physician Unavailable [phone] Cisco Caceres MD Unavailable [phone] Sabiha Hogan APRN BUSINESS ANALYSIS CONSULTANT Unavailable [phone] Yung Rodriguez MD Unavailable Tatianna Horne [facility] Unavailable [phone] Tatianna Horne [facility] Unavailable [phone] Billie Tucker RN Unavailable Unavailable [facility] [place] Unavailable Paul Sanford MD Unavailable [phone] Paul Sanford MD Unavailable [phone] Jt Waters MD Unavailable Jt Waters MD Unavailable Bhavik Segura-C Unavailable [phone] Paul Sanford MD Unavailable [phone] Favian Mcknight MD Unavailable [phone] Favian Mcknight MD Unavailable [phone] Tatianna Horne [facility] Unavailable [phone] Lyudmila Baltazar RN Unavailable Unavailabl e Paul Sanford MD Unavailable [phone] Favian Mcknight MD Unavailable Encounter Details Date Type Department Care Team (Late st Contact Info) Description 10/02/2022 [facility] Medical Advice [facility] Gastroenterology Clinic [address] 4th [place] [address] Cisco Caceres MD [address] [address] Social History Tobacco Use Types Packs/Day Years [...] on file 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 Gender Identity Not on file Sexual Orientation Not on file documented as of this encounter Plan of Treatment Not on file documented as of this encounter Visit Diagnoses Not on filedocumented in this encounter Additional Health Concerns Infection Onset Date Last Indicated Resolved Time Rule Out C-difficile 06/13/2025 06/13/2025 025 5:32 PM CDT documented as of this encounter Care Teams Autocad Technician Relationship Specialty Start Date End Date Sushant Schreiber MD [address] [address] PCP - General Family Medicine 12/02/21 No Ref-Primary, Physician 12/02/21 Cisco Caceres MD Fellow Gastroenterology 12/09/21 Sabiha Hogan APRN BUSINESS ANALYSIS CONSULTANT [address] [place] [address] Assigned Heart and Vascular Provider 12/15/21 02/13/23 Yung Rodriguez MD [address] [place] [address] Cardiovascular Disease 12/25/21 [facility] [address] [place] [address] Pharmacist Pharmacist Plateman 02/06/22 [facility] [address] [place] [address] Assigned MTM Pharmacist 08/13/22 Billie Tcuker, RN Specialty Catalyst Operator Gasoline Gastroenterology 12/10/22 [place], [facility] [address] [place] [address] Physician Loop Tender Dermatology 12/25/22 01/13/23 Paul Sanford MD [address] [place] [address] Gastroenterology 12/25/22 Paul Sanford MD [address] [place] [address] Referring Physician Gastroenterology 01/14/23 Jt Waters MD [address] [place] [address] Dermatology 01/14/23 Jt Waters MD [address] [place] [address] 049075 Assigned Surgical Provider 01/17/23 01/28/24 Bhavik Segura PA-C [address] [place] [address] 840385 Physician Loop Tender Gastroenterology 04/28/23 Paul Sanford MD [address] [place] [address] 147155 Assigned Gastroenterology Provider 07/18/23 02/04/25 Favian Mcknight MD [address] [place] [address] 320355 MD Dermatology 12/09/23 Favian Mcknight MD [address] [place] [address] 530045 Assigned Surgical Provider 01/29/24 02/04/25 Tatianna Horne [facility] [address] [place] [address] 832775 Assigned MTM Pharmacist 07/08/24 Lyudmila Baltazar, RN Home Infusion Pot Annealer 08/29/24 Paul Sanford MD [address] [place] [address] Home Infusion Following Provider Gastroenterology 09/07/24 Favian Mcknight MD [address] [place] [address] 690095 Assigned Dermatology Provider 02/05/25 documented as of this encounter
--- OUTSIDE RECORDS SUMMARY | 2025-06-18 12:03 | XMS_ITS | Encounter Summary ---
Author Organization [place] Address [address] [place] [address] Care Team Providers Care Work Ticket Distributor Name Role Phone Sushant Schreiber MD Primary Care Provider [phone] No Ref-Primary, Physician Unavailable [phone] Cisco Caceres MD Unavailable Yung Rodriguez MD Unavailable Tatianna Horne [facility] Unavailable Billie Tucker RN Unavailable Unavailable Paul Sanford MD Unavailable [phone] Paul Sanford MD Unavailable [phone] Jt Waters MD Unavailable Jt Waters MD Unavailable Bhavik Segura PA-C Unavailable [phone] Paul Sanford MD Unavailable [phone] Favian Mcknight MD Unavailable [phone] Favian Mcknight MD Unavailable [phone] Tatianna Horne [facility] Unavailable Lyudmila Baltazar RN Unavailable Unavailabl e Paul Sanford MD Unavailable [phone] Favian Mcknight MD Unavailable [phone] Encounter Details Date Type Department Care Team (Late st Contact Info) Description 01/09/2024 [facility] [place] Medical Advice [facility] [address] [place] [address] [address] [address] Social History Tobacco Use Types Packs/Day Years [...] on file 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 Gender Identity Not on file Sexual Orientation Not on file documented as of this encounter Plan of Treatment Not on file documented as of this encounter Visit Diagnoses Not on filedocumented in this encounter Additional Health Concerns Infection Onset Date Last Indicated Resolved Time Rule Out C-difficile 06/13/2025 06/13/2025 025 5:32 PM CDT documented as of this encounter Care Teams Work Ticket Distributor Relationship Specialty Start Date End Date Sushant Schreiber MD [address] [address] PCP - General Family Medicine 12/02/21 No Ref-Primary, Physician 12/02/21 Cisco Caceres MD Fellow Gastroenterology 12/09/21 Yung Rodriguez MD [address] [facility] [address] [place] [address] Cardiovascular Disease 12/25/21 Tatianna Horne, [facility] [address] [place] [address] Pharmacist Pharmacist Rock Wool Applicator 02/06/22 Billie Tucker, RN Specialty Pulp Beater Gastroenterology 12/10/22 Paul Sanford MD Gastroenterology 12/25/22 Paul Sanford MD Referring Physician Gastroenterology 01/14/23 Jt Waters MD [address] [place] [address] Dermatology 01/14/23 Jt Waters MD [address] [place] [address] Assigned Surgical Provider 01/17/23 01/28/24 Bhavik Segura PA-C [address] [place] [address] Physician Dog Boarder Gastroenterology 04/28/23 Paul Sanford MD [address] [place] [address] Assigned Gastroenterology Provider 07/18/23 02/04/25 Favian Mcknight MD [address] [place] [address] Dermatology 12/09/23 Favian Mcknight MD [address] [place] [address] Assigned Surgical Provider 01/29/24 02/04/25 Tatianna Horne [facility] [address] [place] [address] Assigned MTM Pharmacist 07/08/24 Lyudmila Baltazar RN Home Infusion Prototype Sewer 08/29/24 Paul Sanford MD Home Infusion Following Provider Gastroenterology 09/07/24 Favian Mcknight MD [address] [place] [address] Assigned Dermatology Provider 02/05/25 documented as of this encounter
--- OUTSIDE RECORDS SUMMARY | 2025-06-18 12:03 | XMS_ITS | Encounter Summary ---
Author Organization [place] Address [address] [place] [address] Care Team Providers Care Courtesy Clerk Name Role Phone Sushant Schreiber MD Primary Care Provider No Ref-Primary, Physician Unavailable [phone] Cisco Caceres MD Unavailable [phone] Sabiha Hogan APRN MELT HOUSE SUPERVISOR Unavailable [phone] Yung Rodriguez MD Unavailable Tatianna Horne [facility] Unavailable [phone] Tatianna Horne [facility] Unavailable [phone] Billie Tucker RN Unavailable Unavailable [place] Unavailable Paul Sanford MD Unavailable [phone] Paul Sanford MD Unavailable [phone] Jt Waters MD Unavailable Jt Waters MD Unavailable Bhavik Segura-C Unavailable [phone] Paul Sanford MD Unavailable [phone] Favian Mcknight MD Unavailable [phone] Favian Mcknight MD Unavailable [phone] Tatianna Horne [facility] Unavailable [phone] Lyudmila Baltazar RN Unavailable Unavailabl e Paul Sanford MD Unavailable Favian Mcknight MD Unavailable Encounter Details Date Type Department Care Team (Late st Contact Info) Description 08/12/2022 My[facility] Medical Advice [facility] Gastroenterology Clinic [address] 4th [place] [address] Mikala Kennedy CMA Social History [...] on file 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 Gender Identity Not on file Sexual Orientation Not on file documented as of this encounter Plan of Treatment Not on file documented as of this encounter Visit Diagnoses Not on filedocumented in this encounter Additional Health Concerns Infection Onset Date Last Indicated Resolved Time Rule Out C-difficile 06/13/2025 06/13/2025 025 5:32 PM CDT documented as of this encounter Care Teams Courtesy Clerk Relationship Specialty Start Date End Date Sushant Schreiber MD [facility] & [address] [address] PCP - General Family Medicine 12/02/21 No Ref-Primary, Physician 12/02/21 Cisco Caceres MD Fellow Gastroenterology 12/09/21 Sabiha Hogan APRN MELT HOUSE SUPERVISOR [address] [place] [address] Assigned Heart and Vascular Provider 12/15/21 02/13/23 Yung Rodriguez MD [address] [facility] [address] [place] [address] Cardiovascular Disease 12/25/21 Tatianna Horne, [facility] [address] [place] [address] Pharmacist Pharmacist Color Coater 02/06/22 [facility] [address] [place] [address] Assigned MTM Pharmacist 08/13/22 Billie Tucker, RN Specialty Parking Analyst Gastroenterology 12/10/22 [place]ale [place] [facility] [address] [place] [address] Physician Transportation Assistant Dermatology 12/25/22 01/13/23 Paul Sanford MD [address] [place] [address] Gastroenterology 12/25/22 Paul Sanford MD [address] [place] [address] Referring Physician Gastroenterology 01/14/23 Jt Waters MD [address] [place] [address] Dermatology 01/14/23 Jt Waters MD [address] [place] [address] Assigned Surgical Provider 01/17/23 01/28/24 Bhavik Segura PA-C [address] [place] [address] 220005 Physician Transportation Assistant Gastroenterology 04/28/23 Paul Sanford MD [address] [place] [address] 371825 Assigned Gastroenterology Provider 07/18/23 02/04/25 Favian Mcknight MD [address] [place] [address] [phone] MD Dermatology 12/09/23 Favian Mcknight MD [address] [place] [address] 464715 Assigned Surgical Provider 01/29/24 02/04/25 Tatianna Horne [facility] [address] [place] [address] 255415 Assigned MTM Pharmacist 07/08/24 Lyudmila Baltazar, RN Home Infusion Computer Numerical Control Grinder 08/29/24 Paul Sanford MD [address] [place] [address] Home Infusion Following Provider Gastroenterology 09/07/24 Favian Mcknight MD [address] [place] [address] 318355 Assigned Dermatology Provider 02/05/25 documented as of this encounter
--- OUTSIDE RECORDS SUMMARY | 2025-06-18 12:03 | XMS_ITS | Encounter Summary ---
Author Organization [place] Address [address] [place] [address] 30156 Care Team Providers Care Field Agronomist Name Role Phone Sushant Schreiber MD Primary Care Provider No Ref-Primary, Physician Unavailable [phone] Cisco Caceres MD Unavailable [phone] Sabiha Hogan APRN [facility] Unavailable [phone] Yung Rodriguez MD Unavailable Tatianna Horne [facility] Unavailable [phone] Tatianna Horne [facility] Unavailable [phone] Tatianna Horne [facility] Unavailable [phone] Billie Tucker RN Unavailable Unavailable [place] PA-C Unavailable Paul Sanford MD Unavailable +[phone] Paul Sanford MD Unavailable +[phone] Jt Waters MD Unavailable Jt Waters MD Unavailable Bhavik Segura PA-C Unavailable +[phone] Paul Sanford MD Unavailable [phone] Favian Mcknight MD Unavailable [phone] Favian Mcknight MD Unavailable +[phone] Tatianna Horne [facility] Unavailable Lyudmila Baltazar RN Unavailable Unavailabl e Paul Sanford MD Unavailable [phone] Favian Mcknight MD Unavailable [phone] Encounter Details Date Type Department Care Team (Late st Contact Info) Description 01/29/2022 MyC Medical Advice [facility] G[facility] [address] 4th [place] [address] Michelle Enamorado RN Social History [...] on file 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 Gender Identity Not on file Sexual Orientation [...] documented as of this encounter Care Teams Field Agronomist Relationship Specialty Start Date End Date Ailabouni, Sushant, MD [facility] - [address] [address] PCP - General Family Medicine 12/02/21 No Ref-Primary, Physician 12/02/21 Cisco Caceres MD Fellow Gastroenterology 12/09/21 Sabiha Hogan APRN [employer] [address] [place], [place] [address] Assigned Heart and Vascular Provider 12/15/21 02/13/23 Yung Rodriguez MD [address] [place], [place] 6609[address] Cardiovascular Disease 12/25/21 Tatianna Horne [facility] [address] [place] [address] 662175 Pharmacist Pharmacist Health Care Sanitary Technician 02/06/22 Tatianna Horne [facility] [address] [place] [address] [phone] Assigned MTM Pharmacist 04/12/22 Tatianna Horne [facility] [address] [place] [address] 467185 Assigned MTM Pharmacist 08/13/22 Billie Tucker, JANELL Specialty Cob Sawyer Gastroenterology 12/10/22 Chantale Grande PA-C [address] [place] [address] Physician Journal Box Inspector Dermatology 12/25/22 01/13/23 Paul Sanford MD [address] [place] [address] MD Gastroenterology 12/25/22 Paul Sanford MD [address] [place] [address] Referring Physician Gastroenterology 01/14/23 Jt Waters MD [address] [place] [address] Dermatology 01/14/23 Jt Waters MD [address] [place] [address] Assigned Surgical Provider 01/17/23 01/28/24 Bhavik Segura PA-C [address] [place] [address] Physician Journal Box Inspector Gastroenterology 04/28/23 Paul Sanford MD [address] [place] [address] Assigned Gastroenterology Provider 07/18/23 02/04/25 Favian Mcknight MD [address] [place] [address] Dermatology 12/09/23 Favian Mcknight MD [address] [place] [address] Assigned Surgical Provider 01/29/24 02/04/25 Tatianna Horne [facility] [address] [place] [address] Assigned MTM Pharmacist 07/08/24 Lyudmila Baltazar RN Home Infusion Rn Unit Manager 08/29/24 Paul Sanford MD [address] [place] [address] Home Infusion Following Provider Gastroenterology 09/07/24 Favian Mcknight MD [address] [place] [address] Assigned Dermatology Provider 02/05/25 documented as of this encounter
--- OUTSIDE RECORDS SUMMARY | 2025-06-18 12:03 | XMS_ITS | Encounter Summary ---
Author Organization [place] Address [address] [place] [address] Care Team Providers Care Grinding Machine Tender Name Role Phone Sushant Schreiber MD Primary Care Provider No Ref-Primary, Physician Unavailable Cisco Caceres MD Unavailable [phone] Sabiha Hogan APRN [facility] Unavailable [phone] Yung Rodriguez MD Unavailable Tatianna Horne [facility] Unavailable [phone] Tatianna Horne [facility] Unavailable [phone] Tatianna Horne [facility] Unavailable +[phone] Billie Tucker RN Unavailable Unavailable [place] PA-C Unavailable Paul Sanford MD Unavailable +[phone] Paul Sanford MD Unavailable +[phone] Jt Waters MD Unavailable Jt Waters MD Unavailable Bhavik Segura PA-C Unavailable +[phone] Paul Sanford MD Unavailable [phone] Favian Mcknight MD Unavailable [phone] Favian Mcknight MD Unavailable +[phone] Anderson [facility] Unavailable Lyudmila Baltazar RN Unavailable Unavailabl e Paul Sanford MD Unavailable [phone] Favian Mcknight MD Unavailable [phone] Encounter Details Date Type Department Care Team (Late st Contact Info) Description 07/02/2022 MyC Medical Advice [address] 5th [place] [address] Billie Santo, JANELL Social History Tobacco Use Types Packs/Day [...] on file 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 Gender Identity Not on file Sexual Orientation Not on file documented as of this encounter Plan of Treatment Not on file documented as of this encounter Visit Diagnoses Not on filedocumented in this encounter Additional Health Concerns Infection Onset Date Last Indicated Resolved Time Rule Out C-difficile 06/13/2025 06/13/2025 025 5:32 PM CDT documented as of this encounter Care Teams Grinding Machine Tender Relationship Specialty Start Date End Date Sushant Schreiber MD [facility] & [address] [address] PCP - General Family Medicine 12/02/21 No Ref-Primary, Physician 12/02/21 Cisco Caceres MD Fellow Gastroenterology 12/09/21 Sabiha Hogan APRN MEDICAL CLAIMS MANAGER [address] [place] [address] Assigned Heart and Vascular Provider 12/15/21 02/13/23 Yung Rodriguez MD [address] [facility] [address] [place] [address] Cardiovascular Disease 12/25/21 [facility] [address] [place] [address] Pharmacist Pharmacist Panelboard Tank Pumper 02/06/22 [facility] [address] [place] [address] Assigned MTM Pharmacist 04/12/22 Tatianna Horne [facility] [address] [place] [address] Assigned MTM Pharmacist 08/13/22 Blilie Tucker, JANELL Specialty Photography And Prints Curator Gastroenterology 12/10/22 Chantale Grande PA-C [address] [place] [address] Physician Rivet Maker Dermatology 12/25/22 01/13/23 Paul Sanford MD [address] [place] [address] Gastroenterology 12/25/22 Paul Sanford MD [address] [place] [address] Referring Physician Gastroenterology 01/14/23 Jt Wtaers MD [address] [place] [address] Dermatology 01/14/23 Jt Waters MD [address] [place] [address] Assigned Surgical Provider 01/17/23 01/28/24 Bhavik Segura PA-C [address] [place] [address] Physician Rivet Maker Gastroenterology 04/28/23 Paul Sanford MD [address] [place] [address] Assigned Gastroenterology Provider 07/18/23 02/04/25 Favian Mcknight MD [address] [place] [address] Dermatology 12/09/23 Favian Mcknight MD [address] [place] [address] Assigned Surgical Provider 01/29/24 02/04/25 Tatianna Horne [facility] [address] [place] [address] Assigned MTM Pharmacist 07/08/24 Lyudmila Baltazar, JANELL Home Infusion Top Lift Compressor 08/29/24 [place] [address] [place] [address] Home Infusion Following Provider Gastroenterology 09/07/24 Favian Mcknight MD [address] [place] [address] Assigned Dermatology Provider 02/05/25 documented as of this encounter
--- OUTSIDE RECORDS SUMMARY | 2025-06-18 12:03 | XMS_ITS ---
Author Organization [place] Address [address] [place] [address] Care Team Providers Care Environment Artist Name Role Phone Sushant Schreiber MD Primary Care Provider [phone] No Ref-Primary, Physician Unavailable Cisco Caceres MD Unavailable Yung Rodriguez MD Unavailable Tatianna Horne [facility] Unavailable Billie Tucker RN Unavailable Unavailable Paul Sanford MD Unavailable Paul Sanford MD Unavailable [phone] Jt Waters MD Unavailable Bhavik Segura PA-C Unavailable [phone] Favian Mcknight MD Unavailable [phone] Tatianna Horne [facility] Unavailable Lyudmila Baltazar RN Unavailable Unavailabl e Paul Sanford MD Unavailable Favian Mcknight MD Unavailable [phone] Biologic Status:Enrolled (Active) Start date:07/21/2024 Enrollment date:07/22/2024 Linked medications:Sodium Chloride,inFLIXimab-dyyb (Active) Linked problems:Crohn's disease of both small and large intestine (H) (Active) Related program episode:Home Infusion (Paused) Continued Care and Services Coordination
--- OUTSIDE RECORDS SUMMARY | 2025-06-18 12:03 | XMS_ITS | Encounter Summary ---
Author Organization [place] Address [address] [place] [address] Care Team Providers Care Maxillofacial Prosthetics Dentist Name Role Phone Ambreen Suresh MD Primary Care Provider No Ref-Primary, Physician Primary Care Provider Sushant Schreiber MD Primary Care Provider [phone] No Ref-Primary, Physician Unavailable [phone] Cisco Caceres MD Unavailable [phone] Sabiha Hogan APRN CIRCULAR SAW OPERATOR Unavailable [phone] Yung Rodriguez MD Unavailable Tatianna Horne [facility] Unavailable [phone] [facility] Unavailable +[phone] [facility] Unavailable +[phone] Billie Tucker RN Unavailable Unavailable Chantale GrandeC Unavailable [phone] Paul Sanford MD Unavailable [phone] Paul Sanford MD Unavailable [phone] Jt Waters MD Unavailable Jt Waters MD Unavailable Bhavik SeguraC Unavailable +[phone] Paul Sanford MD Unavailable [phone] Favian Mcknight MD Unavailable [phone] Favian Mcknight MD Unavailable [phone] [facility] Unavailable [phone] Lyudmila Baltazar RN Unavailable Unavailabl e Paul Sanford MD Unavailable [phone] Favian Mcknight MD Unavailable [phone] Encounter Details Date Type Department Care Team (Late st Contact Info) Description 06/28/[address] [id number] Julio Pierson MD [address] [place] [address] [phone] [facility] Social History Tobacco Use Types Packs/Day Years Used Date Smoking Tobacco: Former Cigarettes Q uit: 05/01/2015 Smokeless Tobacco: Never Alcohol Use Standard Drinks/Week Comments Not Currently 0 (1 standard drink = 0.6 oz pur e alcohol) stop drinking 06/2020 Sex and Gender Information Value Date Recorded Sex Assigned at Not on file 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 Gender Identity Not on file Sexual Orientation Not on file documented as of this encounter Plan of Treatment Not on file documented as of this encounter Visit Diagnoses Not on filedocumented in this encounter Additional Health Concerns Infection Onset Date Last Indicated Resolved Time Rule Out COVID-19 12/02/2021 12/02/2021 12/02/2021 5:53 PM WAREHOUSE ASSOCIATE COVID-19 02/27/2022 02/27/2022 03/20/2022 11:3 9 PM CDT Rule Out C-difficile 06/13/2025 06/13/2025 025 5:32 PM CDT documented as of this encounter Care Teams Maxillofacial Prosthetics Dentist Relationship Specialty Start Date End Date Ambreen Suresh MD [address] [place] [address] [id number] PCP - General 07/07/03 02/21/13 No Ref-Primary, Physician PCP - General 02/22/13 12/01/21 Sushant Schreiber MD [address] [address] PCP - General Family Medicine 12/02/21 No Ref-Primary, Physician 12/02/21 Cisco Caceres MD Fellow Gastroenterology 12/09/21 Sabiha Hogan APRN CIRCULAR SAW OPERATOR [address] [place], [place] 8[address] Assigned Heart and Vascular Provider 12/15/21 02/13/23 Yung Rodriguez MD [address] [place] [address] Cardiovascular Disease 12/25/21 [facility] [address] [place] [address] [phone] Pharmacist Pharmacist Gas Meter Installer Helper 02/06/22 [facility] [address] [place] [address] [phone] Assigned MTM Pharmacist 04/12/22 [facility] [address] [place] [address] 985555 Assigned MTM Pharmacist 08/13/22 Billie Tucker, RN Specialty Clean Room Assembler Gastroenterology 12/10/22 Chantale Grande PA-C [address] [place] [address] Physician Seamer Elastic Band Dermatology 12/25/22 01/13/23 Paul Sanford MD [address] [place] [address] MD Gastroenterology 12/25/22 Paul Sanford MD [address] [place] [address] Referring Physician Gastroenterology 01/14/23 Jt Waters MD [address] [place] [address] Dermatology 01/14/23 Jt Waters MD [address] [place] [address] Assigned Surgical Provider 01/17/23 01/28/24 Bhavik Segura PA-C [address] [place] [address] Physician Seamer Elastic Band Gastroenterology 04/28/23 Paul Sanford MD [address] [place] [address] Assigned Gastroenterology Provider 07/18/23 02/04/25 Favian Mcknight MD [address] [place] [address] Dermatology 12/09/23 Favian Mcknight MD [address] [place] [address] Assigned Surgical Provider 01/29/24 02/04/[address] [facility] [address] [place] [address] Assigned MTM Pharmacist 07/08/24 Lyudmila Baltazar, RN Home Infusion Travel Manager 08/29/24 Paul Sanford MD [address] [place] [address] Home Infusion Following Provider Gastroenterology 09/07/24 Favian Mcknight MD [address] [place] [address] Assigned Dermatology Provider 02/05/25 documented as of this encounter
--- OUTSIDE RECORDS SUMMARY | 2025-06-18 12:03 | XMS_ITS | Encounter Summary ---
Author Organization [place] Address [address] [place] [address] Care Team Providers Care Glass Worker Name Role Phone Sushant Schreiber MD Primary Care Provider No Ref-Primary, Physician Unavailable Cisco Caceres MD Unavailable Sabiha Hogan APRN [facility] Unavailable [phone] Yung Rodriguez MD Unavailable Tatianna Horne [facility] Unavailable [phone] Tatianna Horne [facility] Unavailable [phone] Tatianna Horne [facility] Unavailable [phone] Billie Tucker RN Unavailable Unavailable [place] PA-C Unavailable Paul Sanford MD Unavailable +[phone] Paul Sanford MD Unavailable +[phone] Jt Waters MD Unavailable Jt Waters MD Unavailable Bhavik Segura PA-C Unavailable [phone] Paul Sanford MD Unavailable [phone] Favian Mcknight MD Unavailable [phone] Favian Mcknight MD Unavailable [phone] Tatianna Horne [facility] Unavailable Lyudmila Baltazar RN Unavailable Unavailabl e Paul Sanford MD Unavailable [phone] Favian Mcknight MD Unavailable Encounter Details Date Type Department Care Team (Late st Contact Info) Description 02/21/2022 MyC Medical Advice [facility] Heart [facility] [address] [facility] [address] [place] [address] Yung Rodriguez MD [address] [facility] [address] [place] [address] Social History Tobacco Use Types Packs/Day Years [...] on file 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 Gender Identity Not on file Sexual [...] documented as of this encounter Care Teams Glass Worker Relationship Specialty Start Date End Date Sushant Schreiber MD [facility] [address] [place] [address] PCP - General Family Medicine 12/02/21 No Ref-Primary, Physician 12/02/21 Cisco Caceres MD Fellow Gastroenterology 12/09/21 Sabiha Hogan APRN CAR DUMPER OPERATOR HELPER [address] [place], [place] [address] Assigned Heart and Vascular Provider 12/15/21 02/13/23 Yung Rodriguez MD [address] [place], [place] [address] Cardiovascular Disease 12/25/21 Tatianna Horne [facility] [address] [place] [address] Pharmacist Pharmacist Avionics Test Technician 02/06/22 [facility] [address] [place] [address] Assigned MTM Pharmacist 04/12/22 Tatianna Horne [facility] [address] [place] [address] Assigned MTM Pharmacist 08/13/22 Billie Tucker, RN Specialty Drag Seiner Gastroenterology 12/10/22 Chantale Grande PA-C [address] [place] [address] Physician Accountant Supervisor Dermatology 12/25/22 01/13/23 Paul Sanford MD [address] [place] [address] Gastroenterology 12/25/22 Paul Sanford MD [address] [place] [address] Referring Physician Gastroenterology 01/14/23 Jt Waters MD [address] [place] [address] Dermatology 01/14/23 Jt Waters MD [address] [place] [address] Assigned Surgical Provider 01/17/23 01/28/24 Bhavik Segura PA-C [address] [place] [address] Physician Accountant Supervisor Gastroenterology 04/28/23 Paul Sanford MD [address] [place] [address] Assigned Gastroenterology Provider 07/18/23 02/04/25 Favian Mcknight MD [address] [place] [address] Dermatology 12/09/23 Favian Mcknight MD [address] [place] [address] Assigned Surgical Provider 01/29/24 02/04/25 Tatianna Horne [facility] [address] [place] [address] Assigned MTM Pharmacist 07/08/24 Lyudmila Baltazar, RN Home Infusion Stretcher Helper 08/29/24 Paul Sanford MD [address] [place] [address] Home Infusion Following Provider Gastroenterology 09/07/24 Favian Mkcnight MD [address] [place] [address] Assigned Dermatology Provider 02/05/25 documented as of this encounter
--- OUTSIDE RECORDS SUMMARY | 2025-06-18 12:04 | XMS_ITS | Encounter Summary ---
Author Organization [place] Address [address] [place] [address] Care Team Providers Care Linen Supervisor Name Role Phone Sushant Schreiber MD Primary Care Provider No Ref-Primary, Physician Unavailable [phone] Cisco Caceres MD Unavailable [phone] Yung Rodriguez MD Unavailable Tatianna Horne [facility] Unavailable [phone] Tatianna Horne [facility] Unavailable [phone] Billie Tucker RN Unavailable Unavailable Paul Sanford MD Unavailable +1- Paul Sanford MD Unavailable [phone] Jt Waters MD Unavailable Jt Waters MD Unavailable Bhavik Segura PA-C Unavailable [phone] Paul Sanford MD Unavailable [phone] Favian Mcknight MD Unavailable [phone] Favian Mcknight MD Unavailable [phone] Tatianna Horne [facility] Unavailable [phone] Lyudmila Baltazar RN Unavailable Unavailabl e Paul Sanford MD Unavailable [phone] Favian Mcknight MD Unavailable Encounter Details Date Type Department Care Team (Late st Contact Info) Description 05/22/2023 MyC Medical Advice [facility] Gastroenterology Clinic [address] [address] Billie Tucker RN Social History [...] on file 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 Gender Identity Not on file Sexual Orientation Not on file documented as of this encounter Plan of Treatment Not on file documented as of this encounter Visit Diagnoses Not on filedocumented in this encounter Additional Health Concerns Infection Onset Date Last Indicated Resolved Time Rule Out C-difficile 06/13/2025 06/13/2025 025 5:32 PM CDT documented as of this encounter Care Teams Linen Supervisor Relationship Specialty Start Date End Date Sushant Schreiber MD [facility] & [address] [address] PCP - General Family Medicine 12/02/21 No Ref-Primary, Physician 12/02/21 Cisco Caceres MD Fellow Gastroenterology 12/09/21 Yung Rodriguez MD [address] [facility] [address] [place], [place] 5075[address] Cardiovascular Disease 12/25/21 Tatianna Horne, [facility] [address] [place] [address] [phone] Pharmacist Pharmacist Clinical Research Tech 02/06/22 AbhijeetmaryanneJeannieTatiannashree Rojo [facility] [address] [place] [address] [phone] Assigned MTM Pharmacist 08/13/22 Billie Tucker, RN Specialty Corporate Counselor Gastroenterology 12/10/22 Paul Sanford MD Gastroenterology 12/25/22 Paul Sanford MD Referring Physician Gastroenterology 01/14/23 Jt Waters MD [address] [place] [address] Dermatology 01/14/23 Jt Waters MD [address] [place] [address] Assigned Surgical Provider 01/17/23 01/28/24 Bhavik Segura PA-C [address] [place] [address] Physician Sap Director Gastroenterology 04/28/23 Paul Sanford MD [address] [place] [address] Assigned Gastroenterology Provider 07/18/23 02/04/25 Favian Mcknight MD [address] [place] [address] Dermatology 12/09/23 Favian Mcknight MD [address] [place] [address] Assigned Surgical Provider 01/29/24 02/04/25 Tatianna Horne [facility] [address] [place] [address] Assigned MTM Pharmacist 07/08/24 Luydmila Baltazar, RN Home Infusion Chef Teacher 08/29/24 Paul Sanford MD Home Infusion Following Provider Gastroenterology 09/07/24 Favian Mcknight MD [address] [place] [address] Assigned Dermatology Provider 02/05/25 documented as of this encounter
--- OUTSIDE RECORDS SUMMARY | 2025-06-18 12:04 | XMS_ITS | Encounter Summary ---
Author Organization [facility] Address [address] [place] [address] Care Team Providers Care Director Of Field Sales Name Role Phone Sushant Schreiber MD Primary Care Provider [phone] No Ref-Primary, Physician Unavailable Cisco Caceres MD Unavailable Sabiha Hogan APRN [facility] Unavailable [phone] Yung Rodriguez MD Unavailable Tatianna Horne [facility] Unavailable +[phone] Tatianna Horne [facility] Unavailable +[phone] Tatianna Horne [facility] Unavailable +[phone] Billie Tucker RN Unavailable Unavailable Chantale Grande PA-C Unavailable Paul Sanford MD Unavailable +[phone] Paul Sanford MD Unavailable +[phone] Jt Waters MD Unavailable Jt Waters MD Unavailable Bhavik Segura PA-C Unavailable +[phone] Paul Sanford MD Unavailable [phone] Favian Mcknight MD Unavailable [phone] Favian Mcknight MD Unavailable +[phone] Tatianna Horne [facility] Unavailable Lyudmila Baltazar RN Unavailable Unavailabl e Pual Sanford MD Unavailable [phone] Favian Mcknight MD Unavailable [phone] Encounter Details Date Type Department Care Team (Late st Contact Info) Description 12/03/2021 External Order Results [facility] [address] [place] [address] Outside, Provider Social History Tobacco Use Types Packs/Day Years Used Date Smoking Tobacco: Every Day Cigarettes Alcohol Use Standard Drinks/Week Comments Yes 0 (1 standard drink = 0.6 oz pur e alcohol) occ Sex and Gender Information Value Date Recorded Sex Assigned at Not on file Legal Sex Male 3:45 AM PUMP RUNNER Gender Identity Not on file Sexual Orientation Not on file COVID-19 Exposure Response Date Recorded In the last month, have you been in contact with someone who was confirmed or suspected to have Coronavirus / COVID-19? No / Unsure 12/02/2021 4:20 PM PUMP RUNNER documented as of this encounter Plan of Treatment Not on file documented as of this encounter Visit Diagnoses Not on filedocumented in this encounter Additional Health Concerns Infection Onset Date Last Indicated Resolved Time COVID-19 02/27/2022 02/27/2022 03/20/2022 11:3 9 PM CDT Rule Out C-difficile 06/13/2025 06/13/2025 025 5:32 PM CDT documented as of this encounter Care Teams Director Of Field Sales Relationship Specialty Start Date End Date Sushant Schreiber MD [address] [address] PCP - General Family Medicine 12/02/21 No Ref-Primary, Physician 12/02/21 Cisco Caceres MD Fellow Gastroenterology 12/09/21 Sabiha Hogan APRN INSTRUMENT MECHANICS SUPERVISOR [address] [place] [address] Assigned Heart and Vascular Provider 12/15/21 02/13/23 Yung Rodriguez MD [address] [place] [address] Cardiovascular Disease 12/25/21 [facility] [address] [place] [address] Pharmacist Pharmacist Mat Worker 02/06/22 [facility] [address] [place] [address] Assigned MTM Pharmacist 04/12/22 [facility] [address] [place] [address] 518[address] Assigned MTM Pharmacist 08/13/22 Billie Tucker, RN Specialty Film Library Clerk Gastroenterology 12/10/22 Chantale Grande, PACrispinC [address] [place] [address] Physician Wood Room Hand Dermatology 12/25/22 01/13/23 Paul Sanford MD [address] [place] [address] Gastroenterology 12/25/22 Paul Sanford MD [address] [place] [address] Referring Physician Gastroenterology 01/14/23 Jt Waters MD [address] [place] [address] Dermatology 01/14/23 Jt Waters MD [address] [place] [address] Assigned Surgical Provider 01/17/23 01/28/24 Bhavik Segura PA-C [address] [place] [address] 044905 Physician Wood Room Hand Gastroenterology 04/28/23 Paul Sanford MD [address] [place] [address] Assigned Gastroenterology Provider 07/18/23 02/04/25 Favian Mcknight MD [address] [place] [address] MD Dermatology 12/09/23 Favian Mcknight MD [address] [place] [address] 20971 Assigned Surgical Provider 01/29/24 02/04/25 Tatianna Horne [facility] [address] [place] [address] Assigned MTM Pharmacist 07/08/24 Lyudmila Baltazar, RN Home Infusion Drill Press Hand 08/29/24 Paul Sanford MD [address] [place] [address] Home Infusion Following Provider Gastroenterology 09/07/24 Favian Mcknight MD [address] [place] [address] Assigned Dermatology Provider 02/05/25 documented as of this encounter
--- OUTSIDE RECORDS SUMMARY | 2025-06-18 12:04 | XMS_ITS | Encounter Summary ---
Author Organization [facility] Address [address] [place] [address] Care Team Providers Care Shell Mold Bonding Machine Operator Name Role Phone Sushant Schreiber MD Primary Care Provider [phone] No Ref-Primary, Physician Unavailable [phone] Cisco Caceres MD Unavailable [phone] Sabiha Hogan APRN ROTARY DUMP OPERATOR Unavailable [phone] Yung Rodriguez MD Unavailable Tatianna Horne [facility] Unavailable [phone] Tatianna Horne [facility] Unavailable +[phone] Billie Tucker RN Unavailable Unavailable Ch[place]ale Grande-C Unavailable Paul Sanford MD Unavailable [phone] Paul Sanford MD Unavailable [phone] Jt Waters MD Unavailable Jt Waters MD Unavailable Bhavik Segura-C Unavailable +[phone] Paul Sanford MD Unavailable [phone] Favian Mcknight MD Unavailable +[phone] Favian Mcknight MD Unavailable [phone] Tatianna Horne [facility] Unavailable [phone] Lyudmila Baltazar RN Unavailable Unavailabl e Paul Sanford MD Unavailable Favian Mcknight MD Unavailable [phone] Encounter Details Date Type Department Care Team (Late st Contact Info) Description 01/09/2023 MyC Medical Advice [facility] [address] [place] [address] Sosa Alexander Social History Tobacco Use [...] file Legal 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 Unable to assess 01/09/2023 1:20 PM CLOTH DYE RANGE OPERATOR documented as of this encounter Plan of Treatment Not on file documented as of this encounter Visit Diagnoses Not on filedocumented in this encounter Additional Health Concerns Infection Onset Date Last Indicated Resolved Time Rule Out C-difficile 06/13/2025 06/13/2025 025 5:32 PM CDT documented as of this encounter Care Teams Shell Mold Bonding Machine Operator Relationship Specialty Start Date End Date Sushant Schreiber MD [address] [address] PCP - General Family Medicine 12/02/21 No Ref-Primary, Physician 12/02/21 Cisco Caceres MD Fellow Gastroenterology 12/09/21 Sabiha Hogan APRN ROTARY DUMP OPERATOR [address] [place] [address] Assigned Heart and Vascular Provider 12/15/21 02/13/23 Yung Rodriguez MD [address] [place] [address] Cardiovascular Disease 12/25/21 [facility] [address] [place] [address] Pharmacist Pharmacist Crystalizer Operator 02/06/22 [facility] [address] [place] [address] Assigned MTM Pharmacist 08/13/22 Billie Tucker, RN Specialty Natural Resource Manager Gastroenterology 12/10/22 Chantale Grande PA-C [address] [place] [address] Physician Information Technology Internship Dermatology 12/25/22 01/13/23 Paul Sanford MD [address] [place] [address] Gastroenterology 12/25/22 Paul Sanford MD [address] [place] [address] Referring Physician Gastroenterology 01/14/23 Jt Waters MD [address] [place] [address] Dermatology 01/14/23 Jt Waters MD [address] [place] [address] 720105 Assigned Surgical Provider 01/17/23 01/28/24 Bhavik Segura PA-C [address] [place] [address] 045785 Physician Information Technology Internship Gastroenterology 04/28/23 Paul Sanford MD [address] [place] [address] 703985 Assigned Gastroenterology Provider 07/18/23 02/04/25 Favian Mcknight MD [address] [place] [address] [id number] MD Dermatology 12/09/23 Favian Mcknight MD [address] [place] [address] 851095 Assigned Surgical Provider 01/29/24 02/04/25 Tatianna Horne [facility] [address] [place] [address] Assigned MTM Pharmacist 07/08/24 Lyudmila Baltazar, RN Home Infusion Pneumatic Hoist Operator 08/29/24 Paul Sanford MD [address] [place] [address] [id number] Home Infusion Following Provider Gastroenterology 09/07/24 Favian Mcknight MD [address] [place] [address] Assigned Dermatology Provider 02/05/25 documented as of this encounter
--- OUTSIDE RECORDS SUMMARY | 2025-06-18 12:04 | XMS_ITS | Encounter Summary ---
Author Organization [facility] Address [address] [place] [address] Care Team Providers Care Smt Operator Name Role Phone Sushant Schreiber MD Primary Care Provider No Ref-Primary, Physician Unavailable [phone] Cisco Caceres MD Unavailable [phone] Yung Rodriguez MD Unavailable Tatianna Horne [facility] Unavailable [phone] Tatianna Horne [facility] Unavailable +[phone] Billie Tucker RN Unavailable Unavailable Paul Sanfrod MD Unavailable +1- Paul Sanford MD Unavailable [phone] Jt Waters MD Unavailable Jt Waters MD Unavailable Bhavik Segura PA-C Unavailable +[phone] Paul Sanford MD Unavailable [phone] Favian Mcknight MD Unavailable [phone] Favian Mcknight MD Unavailable [phone] Tatianna Horne [facility] Unavailable [phone] Lyudmila Baltazar RN Unavailable Unavailabl e Paul Sanford MD Unavailable [phone] Favian Mcknight MD Unavailable Encounter Details Date Type Department Care Team (Late st Contact Info) Description 03/19/2023 MyC Medical Advice [address] [place] [address] Dari Wiley, JANELL Social History [...] file Legal Sex Male 3:45 AM YARN TWISTER Gender Identity Not on file Sexual Orientation Not on file documented as of this encounter Plan of Treatment Not on file documented as of this encounter Visit Diagnoses Not on filedocumented in this encounter Additional Health Concerns Infection Onset Date Last Indicated Resolved Time Rule Out C-difficile 06/13/2025 06/13/2025 025 5:32 PM CDT documented as of this encounter Care Teams Smt Operator Relationship Specialty Start Date End Date Sushant Schreiber MD [facility] [address] [address] PCP - General Family Medicine 12/02/21 No Ref-Primary, Physician 12/02/21 Cisco Caceres MD Fellow Gastroenterology 12/09/21 Yung Rodriguez MD [address] [facility] [address] [place], [place] 067905 Cardiovascular Disease 12/25/21 Tatianna Horne, [facility] [address] [place], [place] 809935 Pharmacist Pharmacist Wagon Washer 02/06/22 Tatianna Horne [facility] [address] [place] [address] 012105 Assigned MTM Pharmacist 08/13/22 Billie Tucker, RN Specialty Beauty Therapist Gastroenterology 12/10/22 Paul Sanford MD Gastroenterology 12/25/22 Paul Sanford MD Referring Physician Gastroenterology 01/14/23 Jt Waters MD [address] [place] [address] Dermatology 01/14/23 Jt Waters MD [address] [place] [address] Assigned Surgical Provider 01/17/23 01/28/24 Bhavik Segura PA-C [address] [place] [address] Physician Tamper Operator Gastroenterology 04/28/23 Paul Sanford MD [address] [place] [address] Assigned Gastroenterology Provider 07/18/23 02/04/25 Favian Mcknight MD [address] [place] [address] Dermatology 12/09/23 Favian Mcknight MD [address] [place] [address] Assigned Surgical Provider 01/29/24 02/04/25 Tatianna Horne [facility] [address] [place] [address] Assigned MTM Pharmacist 07/08/24 Lyudmila Baltazar, RN Home Infusion Preschool Paraprofessional 08/29/24 Paul Sanford MD Home Infusion Following Provider Gastroenterology 09/07/24 Favian Mcknight MD [address] [place] [address] Assigned Dermatology Provider 02/05/25 documented as of this encounter
--- OUTSIDE RECORDS SUMMARY | 2025-06-18 12:04 | XMS_ITS | Encounter Summary ---
Author Organization [facility] Address [address] [place] [address] Care Team Providers Care Special Education Professor Name Role Phone Sushant Schreiber MD Primary Care Provider [phone] No Ref-Primary, Physician Unavailable [phone] Cisco Caceres MD Unavailable [phone] Sabiha Hogan APRN PIERCING MILL OPERATOR Unavailable +[phone] Yung Rodriguez MD Unavailable Tatianna Horne [facility] Unavailable +[phone] Tatianna Horne [facility] Unavailable +[phone] Billie Tucker RN Unavailable Unavailable Chantale Grande-C Unavailable [phone] Paul Sanford MD Unavailable [phone] Paul Sanford MD Unavailable [phone] Jt Waters MD Unavailable Jt Waters MD Unavailable Bhavik Segura-C Unavailable +[phone] Paul Sanford MD Unavailable [phone] Favian Mcknight MD Unavailable [phone] Favian Mcknight MD Unavailable [phone] Tatianna Horne [facility] Unavailable [phone] Lyudmila Baltazar RN Unavailable Unavailabl e Paul Sanford MD Unavailable Favian Mcknight MD Unavailable [phone] Encounter Details Date Type Department Care Team (Late st Contact Info) Description 01/09/2023 MyC Medical Advice [facility] [address] [place] [address] Sosa Alexander Social History Tobacco [...] file Legal 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 Unable to assess 01/09/2023 1:20 PM SUPERVISOR DOCK documented as of this encounter Plan of Treatment Not on file documented as of this encounter Visit Diagnoses Not on filedocumented in this encounter Additional Health Concerns Infection Onset Date Last Indicated Resolved Time Rule Out C-difficile 06/13/2025 06/13/2025 025 5:32 PM CDT documented as of this encounter Care Teams Special Education Professor Relationship Specialty Start Date End Date Sushant Schreiber MD [address] [address] PCP - General Family Medicine 12/02/21 No Ref-Primary, Physician 12/02/21 Cisco Caceres MD Fellow Gastroenterology 12/09/21 Sabiha Hogan APRN PIERCING MILL OPERATOR [address] [place] [address] Assigned Heart and Vascular Provider 12/15/21 02/13/23 Yung Rodriguez MD [address] [place] [address] Cardiovascular Disease 12/25/21 [facility] [address] [place] [address] Pharmacist Pharmacist Vacuum Pan Operator 02/06/22 [facility] [address] [place] [address] Assigned MTM Pharmacist 08/13/22 Billie Tucker, RN Specialty Windows Software Engineer Gastroenterology 12/10/22 Chantale Grande PA-C [address] [place] [address] Physician Cigarette Making Machine Catcher Dermatology 12/25/22 01/13/23 Paul Sanford MD [address] [place] [address] Gastroenterology 12/25/22 Paul Sanford MD [address] [place] [address] Referring Physician Gastroenterology 01/14/23 Jt Waters MD [address] [place] [address] Dermatology 01/14/23 Jt Waters MD [address] [place] [address] 506335 Assigned Surgical Provider 01/17/23 01/28/24 Bhavik Segura PA-C [address] [place] [address] 606895 Physician Cigarette Making Machine Catcher Gastroenterology 04/28/23 Paul Sanford MD [address] [place] [address] 787275 Assigned Gastroenterology Provider 07/18/23 02/04/25 Favian Mcknight MD [address] [place] [address] 223345 MD Dermatology 12/09/23 Favian Mcknight MD [address] [place] [address] 384195 Assigned Surgical Provider 01/29/24 02/04/25 Tatianna Horne [facility] [address] [place] [address] Assigned MTM Pharmacist 07/08/24 Lyudmila Baltazar, RN Home Infusion Production Superintendent 08/29/24 Paul Sanford MD [address] [place] [address] 3609992 Home Infusion Following Provider Gastroenterology 09/07/24 Favian Mcknight MD [address] [place] [address] Assigned Dermatology Provider 02/05/25 documented as of this encounter
--- OUTSIDE RECORDS SUMMARY | 2025-06-18 12:04 | XMS_ITS | Encounter Summary ---
Author Organization [place] Address [address] [place] [address] Care Team Providers Care Sr. Manager Name Role Phone Sushant Schreiber MD Primary Care Provider No Ref-Primary, Physician Unavailable [phone] Cisco Caceres MD Unavailable [phone] Yung Rodriguez MD Unavailable Tatianna Horne [facility] Unavailable [phone] Tatianna Horne [facility] Unavailable [phone] Billie Tucker RN Unavailable Unavailable Paul Sanford MD Unavailable +[phone] Paul Sanford MD Unavailable [phone] Jt Waters MD Unavailable Jt Waters MD Unavailable Bhavik Segura PA-C Unavailable +[phone] Paul Sanford MD Unavailable [phone] Favian Mcknight MD Unavailable [phone] Favian Mcknight MD Unavailable [phone] Tatianna Horne [facility] Unavailable [phone] Lyudmila Baltazar RN Unavailable Unavailabl e Paul Sanford MD Unavailable [phone] Favian Mcknight MD Unavailable Encounter Details Date Type Department Care Team (Late st Contact Info) Description 03/16/2023 MyC Medical Advice [address] [place] [address] [place] [address] Chantell Madera, RN Social History [...] on file 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 Manager Relationship Specialty Start Date End Date Sushant Schreiber MD [facility] [address] [address] PCP - General Family Medicine 12/02/21 No Ref-Primary, Physician 12/02/21 Cisco Caceres MD Fellow Gastroenterology 12/09/21 Yung Rodriguez MD [address] [facility] [address] [place], [place] 302145 Cardiovascular Disease 12/25/21 Tatianna Horne, [facility] [address] [place] [address] 299135 Pharmacist Pharmacist Class C Truck Driver 02/06/22 Abhijeetmaraynne Tatiannashree Rojo [facility] [address] [place] [address] 420385 Assigned MTM Pharmacist 08/13/22 Billie Tucker, RN Specialty Pasteurizing Machine Operator Gastroenterology 12/10/22 Paul Sanford MD Gastroenterology 12/25/22 Paul Sanford MD Referring Physician Gastroenterology 01/14/23 Jt Waters MD [address] [place] [address] Dermatology 01/14/23 Jt Waters MD [address] [place] [address] Assigned Surgical Provider 01/17/23 01/28/24 Bhavik Segura PA-C [address] [place] [address] Physician Library Cataloging Technician Gastroenterology 04/28/23 Paul Sanford MD [address] [place] [address] Assigned Gastroenterology Provider 07/18/23 02/04/25 Favian Mcknight MD [address] [place] [address] Dermatology 12/09/23 Favian Mcknight MD [address] [place] [address] Assigned Surgical Provider 01/29/24 02/04/25 Tatianna Horne [facility] [address] [place] [address] Assigned MTM Pharmacist 07/08/24 Lyudmila Baltazar, RN Home Infusion Vacuum Cleaner Repairer 08/29/24 Paul Sanford MD Home Infusion Following Provider Gastroenterology 09/07/24 Favian Mcknight MD [address] [place] [address] Assigned Dermatology Provider 02/05/25 documented as of this encounter
--- OUTSIDE RECORDS SUMMARY | 2025-06-18 12:04 | XMS_ITS | Encounter Summary ---
Author Organization [facility] Address [address] [place] [address] Care Team Providers Care Proofsheet Corrector Name Role Phone Sushant Schreiber MD Primary Care Provider No Ref-Primary, Physician Unavailable [phone] Cisco Caceres MD Unavailable [phone] Yung Rodriguez MD Unavailable Tatianna Horne [facility] Unavailable [phone] Tatianna Horne [facility] Unavailable [phone] Billie Tucker RN Unavailable Unavailable Paul Sanford MD Unavailable +[phone] Paul Sanford MD Unavailable [phone] Jt Waters MD Unavailable Jt Waters MD Unavailable Bhavik Segura PA-C Unavailable [phone] Paul Sanford MD Unavailable [phone] Favian Mcknight MD Unavailable [phone] Favian Mcknight MD Unavailable [phone] Tatianna Horne [facility] Unavailable [phone] Lyudmila Baltazar RN Unavailable Unavailabl e Paul Sanford MD Unavailable [phone] Favian Mcknight MD Unavailable [phone] Encounter Details Date Type Department Care Team (Late st Contact Info) Description 07/07/2023 MyC Medical Advice [facility] [address] [place] [address] Beatriz Mak Social History Tobacco [...] file Legal Sex Male 3:45 AM RN CHARGE Gender Identity Not on file Sexual Orientation [...] documented as of this encounter Care Teams Proofsheet Corrector Relationship Specialty Start Date End Date Sushant Schreiber MD [address] [address] PCP - General Family Medicine 12/02/21 No Ref-Primary, Physician 12/02/21 Cisco Caceres MD Fellow Gastroenterology 12/09/21 Yung Rodriguez MD [address] [facility] [address] [place] [address] Cardiovascular Disease 12/25/21 [facility] [address] [place] [address] Pharmacist Pharmacist Gardening Supervisor 02/06/22 [facility] [address] [place] [address] Assigned MTM Pharmacist 08/13/22 Billie Tucker, JANELL Specialty Ski Lift Mechanic Gastroenterology 12/10/22 Paul Sanford MD Gastroenterology 12/25/22 Paul Sanford MD Referring Physician Gastroenterology 01/14/23 Jt Waters MD [address] [place] [address] Dermatology 01/14/23 Jt Waters MD [address] [place] [address] Assigned Surgical Provider 01/17/23 01/28/24 Bhavik Segura PA-C [address] [place] [address] Physician Chipping Machine Operator Gastroenterology 04/28/23 Paul Sanford MD [address] [place] [address] Assigned Gastroenterology Provider 07/18/23 02/04/25 Favian Mcknight MD [address] [place] [address] Dermatology 12/09/23 Favian Mcknight MD [address] [place] [address] Assigned Surgical Provider 01/29/24 02/04/25 Tatianna Horne [facility] [address] [place] [address] Assigned MTM Pharmacist 07/08/24 Lyudmila Baltazar, RN Home Infusion Foster Care Therapist 08/29/24 Paul Sanford MD Home Infusion Following Provider Gastroenterology 09/07/24 Favian Mcknight MD [address] [place] [address] Assigned Dermatology Provider 02/05/25 documented as of this encounter
--- OUTSIDE RECORDS SUMMARY | 2025-06-18 12:04 | XMS_ITS | Encounter Summary ---
Author Organization [place] Address [address] [place] [address]353 Care Team Providers Care Macadam Raker Name Role Phone Sushant Schreiber MD Primary Care Provider [phone] No Ref-Primary, Physician Unavailable [phone] Cisco Caceres MD Unavailable [phone] Yung Rodriguez MD Unavailable Tatianna Horne [facility] Unavailable [phone] Tatianna Horne [facility] Unavailable [phone] Billie Tucker RN Unavailable Unavailable Paul Sanford MD Unavailable [phone] Paul Sanford MD Unavailable [phone] Jt Waters MD Unavailable Jt Waters MD Unavailable Bhavik Segura PA-C Unavailable [phone] Paul Sanford MD Unavailable [phone] Favian Mcknight MD Unavailable [phone] Favian Mcknight MD Unavailable [phone] Tatianna Horne [facility] Unavailable [phone] Lyudmila Baltazar RN Unavailable Unavailabl e Paul Sanford MD Unavailable [phone] Favian Mcknight MD Unavailable Encounter Details Date Type Department Care Team (Late st Contact Info) Description 03/23/2023 [facility] Gastro[facility]ology Clinic [address] [address] Diony Drummond Social History Tobacco Use [...] on file 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 Gender Identity Not on file Sexual Orientation Not on file documented as of this encounter Plan of Treatment Not on file documented as of this encounter Visit Diagnoses Not on filedocumented in this encounter Additional Health Concerns Infection Onset Date Last Indicated Resolved Time Rule Out C-difficile 06/13/2025 06/13/2025 025 5:32 PM CDT documented as of this encounter Care Teams Macadam Raker Relationship Specialty Start Date End Date Sushant Schreiber MD [facility] - [address] [address] PCP - General Family Medicine 12/02/21 No Ref-Primary, Physician 12/02/21 Cisco Caceres MD Fellow Gastroenterology 12/09/21 Yung Rodriguez MD [address] [facility] [address] [place], [place] 5744[address] Cardiovascular Disease 12/25/21 Tatianna Horne, [facility] [address] [place] [address] 715185 Pharmacist Pharmacist Retail Pricing Coordinator 02/06/22 Abhijeetmaryanne Tatiannashree Rojo [facility] [address] [place] [address] [id number] Assigned MTM Pharmacist 08/13/22 Billie Tucker, RN Specialty Stoper Gastroenterology 12/10/22 Paul Sanford MD Gastroenterology 12/25/22 Paul Sanford MD Referring Physician Gastroenterology 01/14/23 Jt Waters MD [address] [place] [address] Dermatology 01/14/23 Jt Waters MD [address] [place] [address] Assigned Surgical Provider 01/17/23 01/28/24 Bhavik Segura PA-C [address] [place] [address] Physician Bread Icer Gastroenterology 04/28/23 Paul Sanford MD [address] [place] [address] Assigned Gastroenterology Provider 07/18/23 02/04/25 Favian Mcknight MD [address] [place] [address] Dermatology 12/09/23 Favian Mcknight MD [address] [place] [address] Assigned Surgical Provider 01/29/24 02/04/25 Tatianna Horne [facility] [address] [place] [address] Assigned MTM Pharmacist 07/08/24 Lyudmila Baltazar, RN Home Infusion Youth Manager 08/29/24 Paul Sanford MD Home Infusion Following Provider Gastroenterology 09/07/24 Favian Mcknight MD [address] [place] [address] Assigned Dermatology Provider 02/05/25 documented as of this encounter
--- OUTSIDE RECORDS SUMMARY | 2025-06-18 12:04 | XMS_ITS | Encounter Summary ---
Author Organization [place] Address [address] [place] [address] Care Team Providers Care It Applications Analyst Name Role Phone Sushant Schreiber MD Primary Care Provider [phone] No Ref-Primary, Physician Unavailable Cisco Caceres MD Unavailable [phone] Yung Rodriguez MD Unavailable Tatianna Horne [facility] Unavailable Billie Tucker RN Unavailable Unavailable Paul Sanford MD Unavailable Paul Sanford MD Unavailable Jt Waters MD Unavailable Bhavik Segura PA-C Unavailable [phone] Paul Sanford MD Unavailable [phone] Favian Mcknight MD Unavailable [phone] Favian Mcknight MD Unavailable [phone] Tatianna Horne 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 Gender Identity Not on file Sexual Orientation Not on file documented as of this encounter Plan of Treatment Not on file documented as of this encounter Visit Diagnoses Not on filedocumented in this encounter Additional Health Concerns Infection Onset Date Last Indicated Resolved Time Rule Out C-difficile 06/13/2025 06/13/2025 025 5:32 PM CDT documented as of this encounter Care Teams It Applications Analyst Relationship Specialty Start Date End Date Sushant Schreiber MD [facility] - [address] [address] PCP - General Family Medicine 12/02/21 No Ref-Primary, Physician 12/02/21 Cisco Caceres MD Fellow Gastroenterology 12/09/21 Yung Rodriguez MD [address] [facility] [address] [place], [place] 588795 Cardiovascular Disease 12/25/21 Tatianna Horne, [facility] [address] [place] [address] Pharmacist Pharmacist Sedimentationist 02/06/22 Billie Tucker, JANELL Specialty Chief Port Director Gastroenterology 12/10/22 Paul Sanford MD Gastroenterology 12/25/22 Paul Sanford MD Referring Physician Gastroenterology 01/14/23 Jt Waters MD [address] [place] [address] 433195 Dermatology 01/14/23 Bhavik Segura PA-C [address] [place] [address] 925505 Physician Driller And Broacher Gastroenterology 04/28/23 Paul Sanford MD [address] [place] [address] Assigned Gastroenterology Provider 07/18/23 02/04/25 Favian Mcknight MD [address] [place] [address] Dermatology 12/09/23 Favian Mcknight MD [address] [place] [address] Assigned Surgical Provider 01/29/24 02/04/25 Tatianna Horne, [facility] [address] [place] [address] 925135 Assigned MTM Pharmacist 07/08/24 Lyudmila Baltazar RN Home Infusion Airplane Pilot Chief 08/29/24 Paul Sanford MD Home Infusion Following Provider Gastroenterology 09/07/24 Favian Mcknight MD [address] [place] [address] Assigned Dermatology Provider 02/05/25 documented as of this encounter
--- OUTSIDE RECORDS SUMMARY | 2025-06-18 12:04 | XMS_ITS | Encounter Summary ---
Author Organization [place] Address [address] [place] [address] Care Team Providers Care String Cutter Name Role Phone Sushant Schreiber MD Primary Care Provider No Ref-Primary, Physician Unavailable Cisco Caceres MD Unavailable Yung Rodriguez MD Unavailable Tatianna Horne [facility] Unavailable [phone] Billie Tucker RN Unavailable Unavailable Paul Sanford MD Unavailable Paul Sanford MD Unavailable [phone] Jt Waters MD Unavailable Bhavik Segura PA-C Unavailable [phone] Paul Sanford MD Unavailable [phone] Favian Mcknight MD Unavailable [phone] Favian Mcknight MD Unavailable [phone] Tatianna Horne [facility] Unavailable [phone] Lyudmila Baltazar RN Unavailable Unavailabl e Paul Sanford MD Unavailable [phone] Favian Mcknight MD Unavailable [phone] Reason for Referral * Med Therapy Management (Routine: Next available opening) - Closed Specialty Diagnoses / Procedures Referred By Contjohana t Referred To Contact Pharmacist Diagnoses Crohn's disease of both small and large intestine with other complication (H) Paul Sanford MD Phone: tel: fax: Referral ID Status Reason Start Date Expiration Date Visits Re quested Visits Authorized [id number] Closed 06/13/2024 06/13/2025 1 1 Question Answer Type of MTM: Specialty Specialty: GI Med Course of Action: Other Reason for Referral: medicaiton maintenance Additional Information: already scheduled Comments [facility] Medication Therapy Management department will contact [...] prescription and non-prescription medications (such as vitamins, bxdc-mum-esrznod medications, and herbals) or a detailed medication list to your appointment. If you have a glucose meter or other home monitoring information, please also bring this to your appointment (i.e. blood glucose log, blood pressure log, pain log, etc.). 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 Gender Identity Not on file Sexual Orientation Not on file documented as of this encounter Plan of Treatment Scheduled Referrals Name Type Priority Associated Diagnoses Orde r Schedule Med Therapy Management Referral Referral Routine: Next available opening Crohn's disease of both small and large intestine with other complication (H) Ordered: 06/13/2024 documented as of this encounter Visit Diagnoses Diagnosis Crohn's disease of both small and large intestine with other complication (H)- Primary documented in this encounter Additional Health Concerns Infection Onset Date Last Indicated Resolved Time Rule Out C-difficile 06/13/2025 06/13/2025 025 5:32 PM CDT documented as of this encounter Care Teams String Cutter Relationship Specialty Start Date End Date Sushant Schreiber MD [address] [address] PCP - General Family Medicine 12/02/21 No Ref-Primary, Physician 12/02/21 Cisco Caceres MD Fellow Gastroenterology 12/09/21 Yung Rodriguez MD [address] [facility] [address] [place], [place] 686385 Cardiovascular Disease 12/25/21 Tatianna Horne [facility] [address] [place], [place] 9830[address] Pharmacist Pharmacist Operations And Intelligence Assistant 02/06/22 Billie Tucker, JANELL Specialty Air And Missile Defense Crewmember Gastroenterology 12/10/22 Paul Sanford MD Gastroenterology 12/25/22 Paul Sanford MD Referring Physician Gastroenterology 01/14/23 Jt Waters MD [address] [place] [address] [id number] Dermatology 01/14/23 Bhavik Segura PA-C [address] [place] [address] 939625 Physician Diesel Pile Hammer Operator Gastroenterology 04/28/23 Paul Sanford MD [address] [place] [address] 921105 Assigned Gastroenterology Provider 07/18/23 02/04/25 Favian Mcknight MD [address] [place] [address] [id number] MD Dermatology 12/09/23 Favian Mcknight MD [address] [place] [address] 377195 Assigned Surgical Provider 01/29/24 02/04/25 Tatianna Horne [facility] [address] [place] [address] 839305 Assigned MTM Pharmacist 07/08/24 Lyudmila Baltazar, RN Home Infusion Charter Driver 08/29/24 Paul Sanford MD Home Infusion Following Provider Gastroenterology 09/07/24 Favian Mcknight MD [address] [place] [address] Assigned Dermatology Provider 02/05/25 documented as of this encounter
--- OUTSIDE RECORDS SUMMARY | 2025-06-18 12:04 | XMS_ITS | Encounter Summary ---
Author Organization [place] Address [address] [place] [address] Care Team Providers Care Automatic Centrifugal Station Operator Name Role Phone Sushant Schreiber MD Primary Care Provider No Ref-Primary, Physician Unavailable [phone] Cisco Caceres MD Unavailable [phone] Sabiha Hogan APRN, CNP Unavailable [phone] Yung Rodriguez MD Unavailable Tatianna Horne [facility] Unavailable [phone] Tatianna Horne [facility] Unavailable [phone] Billie Tucker RN Unavailable Unavailable Paul Sanford MD Unavailable [phone] Paul Sanford MD Unavailable [phone] Jt Waters MD Unavailable Jt Waters MD Unavailable Bhavik Segura PA-C Unavailable [phone] Paul Sanford MD Unavailable [phone] Favian Mcknight MD Unavailable [phone] Favian Mcknight MD Unavailable [phone] Tatianna Horne [facility] Unavailable [phone] Lyudmila Baltazar RN Unavailable UnavailPaul Restrepo MD Unavailable Favian Mcknight MD Unavailable Encounter Details Date Type Department Care Team (Late st Contact Info) Description 01/28/2023 MyC Medical Advice [facility] Gastroenterology Clinic [address] 4[address] [place] [address] Cisco Caceres MD [address] [address] Social History Tobacco Use Types Packs/Day Years [...] on file 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 No / Unsure 01/14/2023 9:50 AM SUEDING AND BUFFING MACHINE OPERATOR documented as of this encounter Plan of Treatment Not on file documented as of this encounter Visit Diagnoses Not on filedocumented in this encounter Additional Health Concerns Infection Onset Date Last Indicated Resolved Time Rule Out C-difficile 06/13/2025 06/13/2025 025 5:32 PM CDT documented as of this encounter Care Teams Automatic Centrifugal Station Operator Relationship Specialty Start Date End Date Sushant Schreiber MD [facility] - [address] [address] PCP - General Family Medicine 12/02/21 No Ref-Primary, Physician 12/02/21 Cisco Caceres MD Fellow Gastroenterology 12/09/21 Sabiha Hogan APRN MINE UTILITY OPERATOR [address] [place], [place] 235965 Assigned Heart and Vascular Provider 12/15/21 02/13/23 Yung Rodriguez MD [address] [facility] [address] [place], [place] 456325 Cardiovascular Disease 12/25/21 [facility] [address] [place] [address] Pharmacist Pharmacist Horse Racer 02/06/22 [facility] [address] [place] [address] Assigned MTM Pharmacist 08/13/22 Billie Tucker, RN Specialty Psychiatric Therapist Gastroenterology 12/10/22 Paul Sanford MD Gastroenterology 12/25/22 Paul Sanford MD Referring Physician Gastroenterology 01/14/23 Jt Waters MD [address] [place] [address] Dermatology 01/14/23 Jt Waters MD [address] [place] [address] Assigned Surgical Provider 01/17/23 01/28/24 Bhavik Segura PA-C [address] [place] [address] 952795 Physician Acute Care Nurse Gastroenterology 04/28/23 Paul Sanford MD [address] [place] [address] Assigned Gastroenterology Provider 07/18/23 02/04/25 Favian Mcknight MD [address] [place] [address] 101995 MD Dermatology 12/09/23 Favian Mcknight MD [address] [place] [address] 896295 Assigned Surgical Provider 01/29/24 02/04/25 Tatianna Horne [facility] [address] [place] [address] 263725 Assigned MTM Pharmacist 07/08/24 Lyudmila Baltazar, RN Home Infusion Senior Restaurant Manager 08/29/24 Paul Sanford MD Home Infusion Following Provider Gastroenterology 09/07/24 Favian Mcknight MD [address] [place] [address] Assigned Dermatology Provider 02/05/25 documented as of this encounter
--- OUTSIDE RECORDS SUMMARY | 2025-06-18 12:04 | XMS_ITS | Encounter Summary ---
Author Organization [place] Address [address] [place] [address] Care Team Providers Care Make Up Girl Name Role Phone Sushant Schreiber MD Primary Care Provider No Ref-Primary, Physician Unavailable [phone] Cisco Caceres MD Unavailable [phone] Sabiha Hogan APRN CONE OPERATOR Unavailable [phone] Yung Rodriguez MD Unavailable Tatianna Horne [facility] Unavailable [phone] Tatianna Horne [facility] Unavailable [phone] Billie Tucker RN Unavailable Unavailable [place]-C Unavailable Paul Sanford MD Unavailable [phone] Paul Sanford MD Unavailable [phone] Jt Waters MD Unavailable Jt Waters MD Unavailable Bhavik Segura-C Unavailable [phone] Paul Sanford MD Unavailable [phone] Favian Mcknight MD Unavailable [phone] Favian Mcknight MD Unavailable [phone] Tatianna Horne [facility] Unavailable [phone] Lyudmila Baltazar RN Unavailable Unavailabl e Paul Sanford MD Unavailable Favian Mcknight MD Unavailable [phone] Encounter Details Date Type Department Care Team (Late st Contact Info) Description 12/25/2022 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 No / Unsure 12/25/2022 7:56 AM FUSION OPERATOR documented as of this encounter Plan of Treatment Not on file documented as of this encounter Visit Diagnoses Not on filedocumented in this encounter Additional Health Concerns Infection Onset Date Last Indicated Resolved Time Rule Out C-difficile 06/13/2025 06/13/2025 025 5:32 PM CDT documented as of this encounter Care Teams Make Up Girl Relationship Specialty Start Date End Date Sushant Schreiber MD [address] [address] PCP - General Family Medicine 12/02/21 No Ref-Primary, Physician 12/02/21 Cisco Caceres MD Fellow Gastroenterology 12/09/21 Sabiha Hogan APRN CONE OPERATOR [address] [place] [address] Assigned Heart and Vascular Provider 12/15/21 02/13/23 Yung Rodriguez MD [address] [facility] [address] [place] [address] Cardiovascular Disease 12/25/21 [facility] [address] [place] [address] Pharmacist Pharmacist Eastern Philosophy Professor 02/06/22 [facility] [address] [place] [address] Assigned MTM Pharmacist 08/13/22 Billie Tucker, RN Specialty Sample Tester Gastroenterology 12/10/22 [place], PACrispinC [address] [place] [address] Physician Postpartum Rn Dermatology 12/25/22 01/13/23 Paul Sanford MD [address] [place] [address] Gastroenterology 12/25/22 Paul Sanford MD [address] [place] [address] Referring Physician Gastroenterology 01/14/23 Jt Waters MD [address] [place] [address] Dermatology 01/14/23 Jt Waters MD [address] [place] [address] 11847 Assigned Surgical Provider 01/17/23 01/28/24 Bhavik Segura PA-C [address] [place] [address] 246325 Physician Postpartum Rn Gastroenterology 04/28/23 Paul Sanford MD [address] [place] [address] 883835 Assigned Gastroenterology Provider 07/18/23 02/04/25 Favian Mcknight MD [address] [place] [address] 788245 MD Dermatology 12/09/23 Favian Mcknight MD [address] [place] [address] 562645 Assigned Surgical Provider 01/29/24 02/04/25 Tatianna Horne [facility] [address] [place] [address] [phone] Assigned MTM Pharmacist 07/08/24 Lyudmila Baltazar, RN Home Infusion Parachute Taper 08/29/24 [place] [address] [place] [address] Home Infusion Following Provider Gastroenterology 09/07/24 Favian Mcknight MD [address] [place] [address] 168935 Assigned Dermatology Provider 02/05/25 documented as of this encounter
--- OUTSIDE RECORDS SUMMARY | 2025-06-18 12:04 | XMS_ITS | Encounter Summary ---
Author Organization [place] Address [address] [place] [address] Care Team Providers Care Matchbook Maker Name Role Phone Sushant Schreiber MD Primary Care Provider No Ref-Primary, Physician Unavailable [phone] Cisco Caceres MD Unavailable Yung Rodriguez MD Unavailable Tatianna Horne [facility] Unavailable Billie Tucker RN Unavailable Unavailable Paul Sanford MD Unavailable Paul Sanford MD Unavailable Jt Waters MD Unavailable Bhavik Segura PA-C Unavailable [phone] Paul Sanford MD Unavailable Favian Mcknight MD Unavailable [phone] Favian Mcknight MD Unavailable [phone] Tatianna Horne [facility] Unavailable [phone] Lyudmila Baltazar RN Unavailable [facility] Paul Sanford MD Unavailable [phone] Favian Mcknight MD Unavailable [phone] Encounter Details Date Type Department Care Team (Late st Contact Info) Description 08/03/2024 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 Gender Identity Not on file Sexual Orientation Not on file documented as of this encounter Plan of Treatment Not on file documented as of this encounter Visit Diagnoses Not on filedocumented in this encounter Additional Health Concerns Infection Onset Date Last Indicated Resolved Time Rule Out C-difficile 06/13/2025 06/13/2025 025 5:32 PM CDT documented as of this encounter Care Teams Matchbook Maker Relationship Specialty Start Date End Date Sushant Schreiber MD [facility] & [address] [address] PCP - General Family Medicine 12/02/21 No Ref-Primary, Physician 12/02/21 Cisco Caceres MD Fellow Gastroenterology 12/09/21 Yung Rodriguez MD [address] [facility] [address] [place] [address] Cardiovascular Disease 12/25/21 Tatianna Horne, [facility] [address] [place] [address] Pharmacist Pharmacist Boring And Filling Machine Operator 02/06/22 Billie Tucker, RN Specialty Mirror Finishing Machine Operator Gastroenterology 12/10/22 Paul Sanford MD Gastroenterology 12/25/22 Paul Sanford MD Referring Physician Gastroenterology 01/14/23 Jt Waters MD [address] [place] [address] 127305 Dermatology 01/14/23 Bhavik Segura PA-C [address] [place] [address] 186115 Physician Monument Setter Helper Gastroenterology 04/28/23 Paul Sanford MD [address] [place] [address] Assigned Gastroenterology Provider 07/18/23 02/04/25 Favian Mcknight MD [address] [place] [address] Dermatology 12/09/23 Favian Mcknight MD [address] [place] [address] Assigned Surgical Provider 01/29/24 02/04/25 Tatianna Horne, [facility] [address] [place] [address] 312455 Assigned MTM Pharmacist 07/08/24 Lyudmila Baltazar RN Home Infusion Band Scroll Saw Operator 08/29/24 Paul Sanford MD Home Infusion Following Provider Gastroenterology 09/07/24 Favian Mcknight MD [address] [place] [address] Assigned Dermatology Provider 02/05/25 documented as of this encounter
--- OUTSIDE RECORDS SUMMARY | 2025-06-18 12:04 | XMS_ITS | Encounter Summary ---
Author Organization [place] Address [address] [place] [address] Care Team Providers Care Development Writer Name Role Phone Sushant Schreiber MD Primary Care Provider No Ref-Primary, Physician Unavailable [phone] Cisco Caceres MD Unavailable [phone] Yung Rodriguez MD Unavailable Tatianna Horne [facility] Unavailable [phone] Tatianna Horne [facility] Unavailable [phone] Billie Tucker RN Unavailable Unavailable Paul Sanford MD Unavailable +[phone] Paul Sanford MD Unavailable [phone] Jt Waters MD Unavailable Jt Waters MD Unavailable Bhavik Segura PA-C Unavailable [phone] Paul Sanford MD Unavailable [phone] Favian Mcknight MD Unavailable [phone] Favian Mcknight MD Unavailable [phone] Tatianna Horne [facility] Unavailable [phone] Lyudmila Baltazar RN Unavailable Unavailabl e Paul Sanford MD Unavailable [phone] Favian Mcknight MD Unavailable Encounter Details Date Type Department Care Team (Late st Contact Info) Description 06/01/2023 [facility] [address] [place] [address] Diony Drummond Social History Tobacco [...] on file 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 Gender Identity Not on file [...] documented as of this encounter Care Teams Development Writer Relationship Specialty Start Date End Date Sushant Schreiber MD [address] [address] PCP - General Family Medicine 12/02/21 No Ref-Primary, Physician 12/02/21 Cisco Caceres MD Fellow Gastroenterology 12/09/21 Yung Rodriguez MD [address] [facility] [address] [place] [address] Cardiovascular Disease 12/25/21 [facility] [address] [place] [address] Pharmacist Pharmacist Information Officer 02/06/22 [facility] [address] [place] [address] Assigned MTM Pharmacist 08/13/22 Billie Tucker, JANELL Specialty Coating And Embossing Unit Operator Gastroenterology 12/10/22 Paul Sanford MD Gastroenterology 12/25/22 Paul Sanford MD Referring Physician Gastroenterology 01/14/23 Jt Waters MD [address] [place] [address] Dermatology 01/14/23 Jt Waters MD [address] [place] [address] Assigned Surgical Provider 01/17/23 01/28/24 Bhavik Segura PA-C [address] [place] [address] Physician Cook Starch Gastroenterology 04/28/23 Paul Sanford MD [address] [place] [address] Assigned Gastroenterology Provider 07/18/23 02/04/25 Favian Mcknight MD [address] [place] [address] Dermatology 12/09/23 Favian Mcknight MD [address] [place] [address] Assigned Surgical Provider 01/29/24 02/04/25 [facility] [address] [place] [address] Assigned MTM Pharmacist 07/08/24 Lyudmila Baltazar, RN Home Infusion Production Editor 08/29/24 Paul Sanford MD Home Infusion Following Provider Gastroenterology 09/07/24 Favian Mcknight MD [address] [place] [address] Assigned Dermatology Provider 02/05/25 documented as of this encounter
--- OUTSIDE RECORDS SUMMARY | 2025-06-18 12:04 | XMS_ITS | Encounter Summary ---
Author Organization [place] Address [address] [place] [address] Care Team Providers Care Export Clerk Name Role Phone Sushant Schreiber MD Primary Care Provider No Ref-Primary, Physician Unavailable [phone] Cisco Caceres MD Unavailable [phone] Sabiha Hogan APRN, CNP Unavailable [phone] Yung Rodriguez MD Unavailable Tatianna Horne [facility] Unavailable [phone] Tatianna Horne [facility] Unavailable [phone] Billie Tucker RN Unavailable Unavailable Paul Sanford MD Unavailable [phone] Paul Sanford MD Unavailable [phone] Jt Waters MD Unavailable Jt Waters MD Unavailable Bhavik Segura PA-C Unavailable [phone] Paul Sanford MD Unavailable [phone] Favian Mcknight MD Unavailable [phone] Favian Mcknight MD Unavailable [phone] Tatianna Horne [facility] Unavailable [phone] Lyudmila Baltazar RN Unavailable UnavailPaul Restrepo MD Unavailable [phone] Favian Mcknight MD Unavailable [phone] Encounter Details Date Type Department Care Team (Late st Contact Info) Description 01/20/2023 MyC Medical Advice [facility] Gastroenterology Clinic [address] [address] Billie Tucker, RN Social History Tobacco [...] on file 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 No / Unsure 01/14/2023 9:50 AM BAGGAGE SMASHER documented as of this encounter Plan of Treatment Not on file documented as of this encounter Visit Diagnoses Not on filedocumented in this encounter Additional Health Concerns Infection Onset Date Last Indicated Resolved Time Rule Out C-difficile 06/13/2025 06/13/2025 025 5:32 PM CDT documented as of this encounter Care Teams Export Clerk Relationship Specialty Start Date End Date Sushant Schreiber MD [address] [address] PCP - General Family Medicine 12/02/21 No Ref-Primary, Physician 12/02/21 Cisco Caceres MD Fellow Gastroenterology 12/09/21 Sabiha Hogan APRN SURGICAL SERVICES ASSISTANT [address] [place] [address] Assigned Heart and Vascular Provider 12/15/21 02/13/23 Yung Rodriguez MD [address] [facility] [address] [place] [address] Cardiovascular Disease 12/25/21 [facility] [address] [place] [address] Pharmacist Pharmacist Charge Entry Clerk 02/06/22 [facility] [address] [place] [address] Assigned MTM Pharmacist 08/13/22 Billie Tucker, JANELL Specialty Woodworking Bench Carpenter Gastroenterology 12/10/22 Paul Sanford MD Gastroenterology 12/25/22 Paul Sanford MD Referring Physician Gastroenterology 01/14/23 Jt Waters MD [address] [place] [address] Dermatology 01/14/23 Jt Waters MD [address] [place] [address] Assigned Surgical Provider 01/17/23 01/28/24 Bhavik Segura PA-C [address] [place] [address] 628605 Physician Hims Coder Gastroenterology 04/28/23 Paul Sanford MD [address] [place] [address] 164[address] Assigned Gastroenterology Provider 07/18/23 02/04/25 Favian Mcknight MD [address] [place] [address] MD Dermatology 12/09/23 Favian Mcknight MD [address] [place] [address] 327885 Assigned Surgical Provider 01/29/24 02/04/25 Tatianna Horne [facility] [address] [place] [address] [phone] Assigned MTM Pharmacist 07/08/24 Lyudmila Baltazar, RN Home Infusion Junior Java Developer 08/29/24 Paul Sanford MD Home Infusion Following Provider Gastroenterology 09/07/24 Favian Mcknight MD [address] [place] [address] [phone] Assigned Dermatology Provider 02/05/25 documented as of this encounter
--- OUTSIDE RECORDS SUMMARY | 2025-06-18 12:04 | XMS_ITS | Encounter Summary ---
Author Organization [place] Address [address] [place] [address] Care Team Providers Care Director International Name Role Phone Sushant Schreiber MD Primary Care Provider No Ref-Primary, Physician Unavailable [phone] Cisco Caceres MD Unavailable [phone] Yung Rodriguez MD Unavailable Tatianna Horne [facility] Unavailable [phone] Tatianna Horne [facility] Unavailable [phone] Billie Tucker RN Unavailable Unavailable Paul Sanford MD Unavailable [phone] Paul Sanford MD Unavailable [phone] Jt Waters MD Unavailable Jt Waters MD Unavailable Bhavik Segura PA-C Unavailable [phone] Paul Sanford MD Unavailable [phone] Favian Mcknight MD Unavailable [phone] Favian Mcknight MD Unavailable [phone] Tatianna Horne [facility] Unavailable [phone] Lyudmila Baltazar RN Unavailable Unavailabl e Paul Sanford MD Unavailable [phone] Favian Mcknight MD Unavailable Encounter Details Date Type Department Care Team (Late st Contact Info) Description 06/03/2023 MyC Medical Advice [facility] [address] [place] [address] Billie uTcker, RN Social History Tobacco Use Types Packs/Day [...] on file Legal Sex Male 3:[address] GUARD Gender Identity Not on file Sexual Orientation [...] as of this encounter Care Teams Director International Relationship Specialty Start Date End Date Sushant Schreiber MD [address] [address] PCP - General Family Medicine 12/02/21 No Ref-Primary, Physician 12/02/21 Cisco Caceres MD Fellow Gastroenterology 12/09/21 Yung Rodriguez MD [address] [facility] [address] [place] [address] Cardiovascular Disease 12/25/21 [facility] [address] [place] [address] Pharmacist Pharmacist Accounting Software Specialist 02/06/22 [facility] [address] [place] [address] Assigned MTM Pharmacist 08/13/22 Billie Tucker, JANELL Specialty Industrial Welder Gastroenterology 12/10/22 Paul Sanford MD Gastroenterology 12/25/22 Paul Sanford MD Referring Physician Gastroenterology 01/14/23 Jt Waters MD [address] [place] [address] Dermatology 01/14/23 Jt Waters MD [address] [place] [address] Assigned Surgical Provider 01/17/23 01/28/24 Bhavik Segura PA-C [address] [place] [address] Physician Vessel Scrapper Gastroenterology 04/28/23 Paul Sanford MD [address] [place] [address] Assigned Gastroenterology Provider 07/18/23 02/04/25 Favian Mcknight MD [address] [place] [address] Dermatology 12/09/23 Favian Mcknight MD [address] [place] [address] Assigned Surgical Provider 01/29/24 02/04/25 Tatianna Horne [facility] [address] [place] [address] Assigned MTM Pharmacist 07/08/24 Lyudmila Baltazar, RN Home Infusion Supervisor Nut Processing 08/29/24 Paul Sanford MD Home Infusion Following Provider Gastroenterology 09/07/24 Favian Mcknight MD [address] [place] [address] Assigned Dermatology Provider 02/05/25 documented as of this encounter
[2025-06-18] MEDS: ONDANSETRON 2 MG/ML inj 4 MG IVP (12:16)
[2025-06-18 12:18] LABS: Hematocrit 49.6 % (37.0-53.0); Hemoglobin* 18.1 gm/dL (13.5-17.5); Immature Granulocytes Abs Auto 0.10 K/uL (0.00-0.30); Immature Granulocytes Pct Auto 0.6 %; Lactate* 1.4 mmol/L (0.5-1.9); Mean Corpuscular HGB Conc 37 gm/dL (32-36); Mean Corpuscular Hemoglobin 32 pg (26-34); Mean Corpuscular Volume 88 fL (80-100); RDW Coefficient of Variation % 12.1 % (11.5-15.5); Red Blood Count 5.64 m/uL (4.30-5.90); White Blood Count* 18.05 K/uL (4.50-11.00)
[2025-06-18 12:21] LABS: Lymphocytes Absolute Auto 5.70 K/uL (0.90-2.90); Slide Review Reflex Yes
[2025-06-18] MEDS: LACTATED RINGERS 1000 ML 1,000 ML IV (13:23)
[2025-06-18 13:28] LABS: Slide Review Acceptable Review (Acceptable)
[2025-06-18 13:36] LABS: Albumin* 4.2 g/dL (3.3-5.0); Chloride* 104 mmol/L (96-114); Sodium* 131 mmol/L (135-149)
[2025-06-18 13:37] LABS: Potassium* 3.0 mmol/L (3.6-5.1)
[2025-06-18 13:39] LABS: Alanine Aminotransferase* 51 U/L (4-50); Aspartate Amino Transferase* 38 U/L (12-35); Blood Urea Nitrogen* 30 mg/dL (5-24); Creatinine* 1.3 mg/dL (0.5-1.5); Est. Creatinine Clearance* 83.67; Estimated Glomerular Filt Rate 73 ml/min
[2025-06-18 13:40] LABS: Alkaline Phosphatase* 104 U/L (40-150); Anion Gap 16 mEq/L (7-15); Bilirubin Total* 0.5 mg/dL (0.1-1.5); Calcium* 8.8 mg/dL (8.4-10.6); Carbon Dioxide* 11 mmol/L (20-32); Glucose* 110 mg/dL (60-115); Total Protein* 7.9 g/dL (6.0-8.3)
[2025-06-18] MEDS: MORPHINE 4 MG/ML INJ IVP (13:47)
[2025-06-18] MEDS: POTASSIUM CHLORIDE 10 MEQ/100 ML PIGGYBACK 100 MEQ IVPB ×2 (14:23→15:27)
[2025-06-18] MEDS: LACTATED RINGERS 1000 ML 1,000 ML 500 ML IV (14:33)
[2025-06-18 14:48] LABS: C.Difficile Negative (Negative); CDIFFEPI 027 PRESUMPTIVE NEGATIVE (Negative)
[2025-06-24 18:20] LABS: Ova and Parasite, Fecal Negative (Negative)
== END 2025-06-18 18:08 | disposition short-term general hospital (02) ==
PROVIDERS: Emergency Provider Family Medicine; PCP Family Medicine
DX: K50.90 Crohn's disease, unspecified, without complications (principal)
CPT/HCPCS: 36415; 80053; 83605; 85025; 86140; 87045; 87046; 87177; 87209; 87427; 87493; 94761; 96365; 96375; 99285; J2270; J2405; J3480; J7030; J7120